=== PATIENT | male | born 1940 | race Caucasian/White ===

== ENCOUNTER 2017-07-29 17:05 | Emergency (ER) | payer OTHER ==
--- OUTSIDE RECORDS SUMMARY | 2017-07-29 17:07 | XMS REPORT | Clinical Summary ---
:1940 Author Organization [facility] Address [address] [place] [address] Care Team Providers Name Role Phone Moustapha Mcqueen MD Primary Care Provider Allergies Active Allergy Reactions Severity Noted Date Comments No Known Drug Allergies Current Medications Prescription Sig. Disp. Refills Start Date End Date Status aspirin (ECOTRIN) 81 Take 81 mg by Active MG enteric coated mouth daily. tablet citalopram (CeleXA) Take 20 mg by Active 20 MG tablet mouth nightly. LACTOBACILLUS Take by mouth. Active RHAMNOSUS GG (CULTURELLE ORAL) metoprolol succinate Take 1 tablet 90 tablet 3 04/24/2017 Active XL (TOPROL XL) 25 mg (25 mg total) 8 24 hr tablet by mouth daily. amLODIPine (NORVASC) TAKE 1 TABLET 90 tablet 2 05/24/2017 Active 10 mg BY MOUTH DAILY tabletIndications: Essential hypertension, Mixed hyperlipidemia rosuvastatin Take 1 tablet 90 tablet 3 05/21/2017 Active (CRESTOR) 20 MG (20 mg total) 9 tabletIndications: by mouth Hyperlipidemia, daily. unspecified hyperlipidemia type amLODIPine (NORVASC) Take 1 tablet 90 tablet 3 05/21/2017 Active 10 mg tablet (10 mg total) by mouth daily. clopidogrel (PLAVIX) Take 1 tablet 30 tablet 0 05/28/2017 Active 75 mg tablet (75 mg total) by mouth daily. atorvastatin Take 1 tablet 90 tablet 3 05/23/2016 Discontinued (LIPITOR) 40 MG (40 mg total) 7 tabletIndications: by mouth Hyperlipidemia, daily. unspecified hyperlipidemia type clopidogrel (PLAVIX) Take 75 mg by Discontinued 75 mg tablet mouth daily. 8 rosuvastatin Take 1 tablet 90 tablet 03 08/01/2016 Discontinued (CRESTOR) 20 MG (20 mg total) 8 tabletIndications: by mouth Hyperlipidemia, daily. unspecified hyperlipidemia type amLODIPine (NORVASC) 03/07/2017 Discontinued 10 mg tablet 8 clopidogrel (PLAVIX) Take 1 tablet 90 tablet 3 05/28/2017 Discontinued 75 mg tablet (75 mg total) 8 by mouth daily. traMADol (ULTRAM) 50 Take 1 tablet 40 tablet 0 05/29/2017 mg tablet (50 mg total) 8 by mouth every 4 (four) hours as needed for moderate pain for up to 15 days. Active Problems Problem Noted Date Left hip pain 05/29/2017 PAD (peripheral artery disease) 04/24/2017 Abdominal aortic aneurysm (AAA) without rupture 07/25/2016 Bilateral carotid bruits 07/25/2016 Hyperlipidemia 07/25/2016 Peripheral vascular disease, unspecified 12/24/2015 Coronary atherosclerosis of unspecified type of vessel, [place] or graft 2015 Encounters Date Type Specialty Care Team Description 05/29/2017 Office Visit Orthopedic Surgery Corey Hart Left hip pain ( Primary MD Judah Dx) 05/29/2017 Orders Only Orthopedic Surgery Monserrat Guevara MA 05/28/2017 Refill Cardiology Dillan Du Med Yesiill 05/21/2017 Orders Only Cardiology Ricki De La Fuente MA 05/21/2017 Orders Only Cardiology Ricki De La Fuente MA Hyperlipidemia, unspecified hyperlipidemia type 05/19/2017 Refill Cardiology Dillan Du Med Refill 05/18/2017 Telephone Cardiology Jennifer Rangel Medication RN 05/17/2017 Telephone Cardiology Dillan Du MD 05/17/2017 Telephone Cardiology Dillan Du MD 04/24/2017 Office Visit Cardiology Dillan Du, PAD (peripheral artery disease) (Primary Dx); Abdominal aortic aneurysm (AAA) without rupture 08/22/2016 Telephone Cardiology Rhoda Denson, Jami FARIAS 08/18/2016 Telephone Cardiology Jeremy, Jami (lvm) DINORA Merchant 08/01/2016 Orders Only Cardiology Dillan Du, Abdominal aortic aneurysm MD (AAA) without rupture (Primary Dx) 08/01/2016 Refill Cardiology Janiya, Rhoda, Med Refill MA after 07/28/2016 Family History Medical History Relation Name Comments Cancer Brother No Known Problems Father Cancer Mother Relation Name Status Comments Brother Father Mother Social History Tobacco Use Types Packs/Day Years Used Date Never Smoker Tobacco Cessation: Counseling Given: No Alcohol Use Drinks/Week oz/Week Comments No Sex Assigned at Date Recorded Not on file Last Filed Vital Signs Vital Sign Reading Time Taken Blood Pressure 170/81 04/24/2017 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 Pulse 76 04/24/2017 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 Temperature - - Respiratory Rate - - Oxygen Saturation - - Inhaled Oxygen Concentration - - Weight 74.8 kg (165 lb) 05/29/2017 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 Height 182.9 cm (6') 05/29/2017 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 Body Mass Index 22.38 05/29/2017 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 Plan of Treatment Date Type Specialty Care Team Description 09/24/2017 Appointment Procedural Cardiology Dillan Du MD [address] [place] [address] [phone] 10/23/2017 Office Visit Cardiology Dillan Du MD [address] [place] [address] [phone] Health Maintenance Due Date Last Done Comments ZOSTER VACCINE 1999 PNEUMOCOCCAL POLYSACCHARIDE VACCINE AGE 65 AND OVER 02/08/2004 PNEUMOCOCCAL-13 02/08/2004 INFLUENZA VACCINE 12/12/2016 Implants Implanted Type Area Horseshoer Device Expiration Model / Identifier Date Serial / Lot Stent Bili Protege Everflex Slf-Xpndbl 5x60mm W/ Cath 120cm - [id number] Peripheral or N/A: N/A [employer] 10/17/2018 [id number] 120 / Implanted: 12/24/2015 (Quantity not on file) Biliary Stents / [id number] Stent Perph Everflex Slf-Xpndbl 6x60mm W/ Cath 120cm - [id number] Peripheral or N/A: N/A [employer] 10/28/2018 [id number] 120 / Implanted: 12/24/2015 (Quantity not on file) Biliary Stents / [id number] Results XR Hip 2-3 View Left (05/29/2017 9:43 AM) Specimen Performing Laboratory [facility] [address] [place] [address] Narrative Left hip xray shows total hip arthroplasty in good place with no signs of ostelysis.Acetabular plate with multiple screws in good place. Pelvis with two screws across.No acute fractures noted. Pv duplex aorta inferior vena cava complete (08/09/2016 11:00 AM) Specimen Performing Laboratory [facility] [address] [place] [address] Narrative [facility] Abdominal Aorta-Iliac Report Pat.Name:ONEIL REYES Pat.ID:[id number] St.Date: 08/09/2016 Refer.MD:DILLAN DU MD Exam Time: 10:34:00 AM Study Type:Abd. Aorta-Iliac DOBAge:1940,76Y Sex: MALE Sonogrphr: Rolando Mcfarland RVSPat. Stat.:Outpatient TapeVol: , CPT - 4: 73622 Echo Event ID:[id number] Order ID:[id number] Reason for Study:Abdominal Aorta Aneurysm without rupture; Hyperlipidemia. Race:C SUMMARY: AORTA:The abdominal aorta is well visualized.The aorta measures 4.4 cm x 3.8 cm .Hard plaque is noted.Colorflow and Doppler signals are normal throughout all visualized arteries. PHYSICIAN INTERPRETATION The aorta and its major branches are reasonably well seen. The largest diameter of the aneurysm is 4.4 cm x 3.8 cm. Hard plaque is noted. MEASUREMENTS: 2D Aorta Ascending Aorti3.71 cm Aortic Root Jeyn 3.4 cm Signed 08/14/2016 01:11 PM Dillan Du MD Procedure Note Interface, Radiology Results In - 08/14/2016 1:11 PM CDT [facility] Abdominal Aorta-Iliac Report Pat.Name: ONEIL REYES Pat.ID: [id number] St.Date: 08/09/2016 Refer.MD: DILLAN DU MD Exam Time: 10:34:00 AM Study Type:Abd. Aorta-Iliac Age: 8 1940,76Y Sex: MALE Sonogrphr: JERAMY LeeS Pat. Stat.:Outpatient Tape Vol: , [facility] - 4: 61427 Echo Event ID:[id number] Order ID: [id number] Reason for Study:Abdominal Aorta Aneurysm without rupture; Hyperlipidemia. Race: C SUMMARY: AORTA: The abdominal aorta is well visualized. The aorta measures 4.4 cm x 3.8 cm . Hard plaque is noted. Colorflow and Doppler signals are normal throughout all visualized arteries. PHYSICIAN INTERPRETATION The aorta and its major branches are reasonably well seen. The largest diameter of the aneurysm is 4.4 cm x 3.8 cm. Hard plaque is noted. MEASUREMENTS: 2D Aorta Ascending Aorti 3.71 cm Aortic Root Jeny 3.4 cm Signed 08/14/2016 01:11 PM Dillan Du MD Pv carotid duplex (08/09/2016 10:30 AM) Specimen Performing Laboratory [facility] [address] [place] [address] Narrative [facility] Cardiology [facility] Carotid Artery Ultrasound Report Pat.Name:ONEIL REYES Pat.ID:[id number] St.Date: 08/09/2016 Refer.MD:DEVAN MCQUEEN MD Exam Time: 10:06:00 AM Study Type:Carotid DOBAge:1940,76Y Sex: MALE Sonogrphr: Rolando Mcfarland RVSPat. Stat.:[facility]patient [facility]Vol: [facility] - [facility]: 96407 Echo Event ID:[id number] Order ID:[id number] Reason for Study:Carotid artery disease; right internal carotid stenting, hyperlipidemia. Race:C SUMMARY: CAROTID ARTERY SCAN RIGHT:There is focal hard plaque in the common carotid artery. There is hard plaque noted in the bulb. A stent is visualized in the proximalinternal carotid artery with normal velocities and normal colorflow. There is hard, calcified, and irregular plaque noted in the external carotid artery. Colorflow is disturbed in the external carotid artery. LEFT: There is hard plaque in the common carotid artery. There is hard and calcified plaque noted in the bulb extending into the proximal internal and external carotid artery.Colorflow is disturbed in the external carotid artery. PHYSICIAN INTERPRETATION 1.Normal flow through the stent in the right internal carotid artery. 2.30-40% stenosis in the bulb and left internal carotid artery. 3.Severe stenosis in the external carotid artery, bilaterally. 4. Non-stenotic plaque in the common carotid artery,bilaterally. Carotid Findings:RightLeft Verteb.Flw AntegradeAntegrade Subclavian Biphasic Biphasic MEASUREMENTS: DOPPLER Right CCA Dist CCA Dist PSV43.7 centimeter/second CCA Dist EDV9.84 centimeter/second Right CCA Mid CCA Mid PSV 64.5 centimeter/second CCA Mid EDV 14.2 centimeter/second Right CCA Prox CCA Prox PSV85.3 centimeter/second CCA Prox EDV14.2 centimeter/second Right Bulb Bulb PSV37.2 centimeter/second Bulb EDV9.84 centimeter/second Right ECA Prox ECA Prox PSV 467 centimeter/second ECA Prox EDV 0 centimeter/second Right ICA Dist ICA Dist PSV72.2 centimeter/second ICA Dist EDV20.8 centimeter/second Right ICA Mid ICA Mid PSV 54.7 centimeter/second ICA Mid EDV 17.5 centimeter/second Right ICA Prox ICA Prox PSV47 centimeter/second ICA Prox EDV13.1 centimeter/second Right Vertebral Vertebral PSV 47 centimeter/second Vertebral EDV 9.84 centimeter/second Right SCA Prox SCA Prox PSV99.1 centimeter/second Left CCA Dist CCA Dist PSV58.4 centimeter/second CCA Dist EDV10.1 centimeter/second Left CCA Prox CCA Prox PSV68.5 centimeter/second CCA Prox EDV10.1 centimeter/second Left Bulb Bulb PSV82.6 centimeter/second Bulb EDV22.1 centimeter/second Left ECA Prox ECA Prox PSV 438 centimeter/second ECA Prox EDV41.3 centimeter/second Left ICA Dist ICA Dist PSV79.8 centimeter/second ICA Dist EDV20.8 centimeter/second Left ICA Mid ICA Mid PSV 80.9 centimeter/second ICA Mid EDV 19.9 centimeter/second Left ICA Prox ICA Prox PSV91.9 centimeter/second ICA Prox EDV20.8 centimeter/second Left Vertebral Vertebral PSV 31.7 centimeter/second Vertebral EDV 8.75 centimeter/second Left SCA Prox SCA Prox PSV 157 centimeter/second SCA Prox EDV 0 centimeter/second Left CCA Mid CCA Mid PSV 58 cm/sCCA Mid EDV 12 cm/s Right ICA/CCA Ratio ICA/CCA PSV0.729 Left ICA/CCA Ratio ICA/CCA PSV 1.58 Signed 08/14/2016 01:15 PM Dillan Du MD Procedure Note Interface, Radiology Results In - 08/14/2016 1:15 PM CDT [facility] Carotid Artery Ultrasound Report Pat.Name: ONEIL REYES.ID: [id number] St.Date: 08/09/2016 Refer.MD: DEVAN MCQUEEN MD Exam Time: 10:06:00 AM Study Type:Carotid Age: 9 1940,76Y Sex: MALE Sonogrphr: CHANDRIKA Lee Pat. Stat.:Outpatient Tape Vol: , [facility] - 4: 71961 Echo Event ID:[id number] Order ID: [id number] Reason for Study:Carotid artery disease; right internal carotid stenting, hyperlipidemia. Race: C SUMMARY: CAROTID ARTERY SCAN RIGHT: There is focal hard plaque in the common carotid artery. There is hard plaque noted in the bulb. A stent is visualized in the proximal internal carotid artery with normal velocities and normal colorflow. There is hard, calcified, and irregular plaque noted in the external carotid artery. Colorflow is disturbed in the external carotid artery. LEFT: There is hard plaque in the common carotid artery. There is hard and calcified plaque noted in the bulb extending into the proximal internal and external carotid artery. Colorflow is disturbed in the external carotid artery. PHYSICIAN INTERPRETATION 1. Normal flow through the stent in the right internal carotid artery. 2. 30-40% stenosis in the bulb and left internal carotid artery. 3. Severe stenosis in the external carotid artery, bilaterally. 4. Non-stenotic plaque in the common carotid artery, bilaterally. Carotid Findings: Right Left Verteb.Flw Antegrade Antegrade Subclavian Biphasic Biphasic MEASUREMENTS: DOPPLER Right CCA Dist CCA Dist PSV 43.7 centimeter/second CCA Dist EDV 9.84 centimeter/second Right CCA Mid CCA Mid PSV 64.5 centimeter/second CCA Mid EDV 14.2 centimeter/second Right CCA Prox CCA Prox PSV 85.3 centimeter/second CCA Prox EDV 14.2 centimeter/second Right Bulb Bulb PSV 37.2 centimeter/second Bulb EDV 9.84 centimeter/second Right ECA Prox ECA Prox PSV 467 centimeter/second ECA Prox EDV 0 centimeter/second Right ICA Dist ICA Dist PSV 72.2 centimeter/second ICA Dist EDV 20.8 centimeter/second Right ICA Mid ICA Mid PSV 54.7 centimeter/second ICA Mid EDV 17.5 centimeter/second Right ICA Prox ICA Prox PSV 47 centimeter/second ICA Prox EDV 13.1 centimeter/second Right Vertebral Vertebral PSV 47 centimeter/second Vertebral EDV 9.84 centimeter/second Right SCA Prox SCA Prox PSV 99.1 centimeter/second Left CCA Dist CCA Dist PSV 58.4 centimeter/second CCA Dist EDV 10.1 centimeter/second Left CCA Prox CCA Prox PSV 68.5 centimeter/second CCA Prox EDV 10.1 centimeter/second Left Bulb Bulb PSV 82.6 centimeter/second Bulb EDV 22.1 centimeter/second Left ECA Prox ECA Prox PSV 438 centimeter/second ECA Prox EDV 41.3 centimeter/second Left ICA Dist ICA Dist PSV 79.8 centimeter/second ICA Dist EDV 20.8 centimeter/second Left ICA Mid ICA Mid PSV 80.9 centimeter/second ICA Mid EDV 19.9 centimeter/second Left ICA Prox ICA Prox PSV 91.9 centimeter/second ICA Prox EDV 20.8 centimeter/second Left Vertebral Vertebral PSV 31.7 centimeter/second Vertebral EDV 8.75 centimeter/second Left SCA Prox SCA Prox PSV 157 centimeter/second SCA Prox EDV 0 centimeter/second Left CCA Mid CCA Mid PSV 58 cm/s CCA Mid EDV 12 cm/s Right ICA/CCA Ratio ICA/CCA PSV 0.729 Left ICA/CCA Ratio ICA/CCA PSV 1.58 Signed 08/14/2016 01:15 PM Dillan Du MD after 07/28/2016 Insurance Payer Benefit Plan / Group Subscriber ID Type Phone Address NELLI AIKEN OPEN ACCESS/NETWORK xxxxxxxxx HMO +[facility]-[id number] [place] [address]
--- NOTE | 2017-07-29 18:07 | RAD REPORT ---
EXAM DESCRIPTION: RAD - Knee Left 3 View - 07/29/2017 5:43 pm CLINICAL HISTORY: Fall, pain COMPARISON: None. FINDINGS: Diffuse osteopenia is seen. Lucency is seen in the superior pole patella, likely nondispla selvin fracture. Moderate suprapatellar joint effusion with lipohemarthrosis suspected. Popliteal athero sclerosis is heavy.
[2017-07-29] MEDS ORDERED: HYDROCODONE/APAP 10/325 TAB ONE (18:18)
--- NOTE | 2017-07-29 19:21 | ER ---
Nurse's Notes [facility] Name: Vaughn Webb Age: 77 yrs Sex: Male : 1940 Arrival Date: 07/29/2017 Time: 17:07 Bed 26 Private MD: Moustapha Bliss Diagnosis: Nondisplaced left patella fracture Presentation: 07/29 17:09 Presenting complaint: Patient states: i was folding clothes and i went to turn around and i fell and hit my L knee around 2 pm today; denies hitting head and LOC;. Transition of care: patient was not received from another setting of care. Onset of symptoms was July 29, 2017. Care prior to arrival: None. 17:09 Method Of Arrival: Ambulatory 17:09 Acuity: PEDRO LUIS 4 17:18 Mechanism of Injury: Fall. Trauma event details: Injury occurred in the county [facility], Injury occurred: at home. Injury occurred: July 29, 2017. Triage Assessment: 17:17 General: Appears in no apparent distress. uncomfortable, Behavior is calm, cooperative, hj appropriate for age. Pain: Complains of pain in left knee. Trauma Activation: Not Applicable Physician: ED Physician; Name: ; Notified At: ; Arrived At: Physician: General Surgeon; Name: ; Notified At: ; Arrived At: Physician: Radiology; Name: ; Notified At: ; Arrived At: Physician: Respiratory; Name: ; Notified At: ; Arrived At: Physician: Lab; Name: ; Notified At: ; Arrived At: Historical: - Allergies: 17:17 No Known Allergies; - Home Meds: 17:17 aspirin 81 mg Oral TbEC 1 tab once daily [Active]; citalopram 20 mg tab 1 tab once hj daily [Active]; Plavix 75 mg Oral tab 1 tab once daily [Active]; amlodipine 10 mg tab 1 tab once daily [Active]; atorvastatin 40 mg oral tab 1 tab once daily [Active]; rosuvastatin 20 mg oral tab 1 tab once daily [Active]; - PMHx: 17:17 Hyperlipidemia; Hypertension; hj - PSHx: 17:17 triple bypass; Carotid surgery; L hip; hj Screenin:07 Abuse screen: Denies threats or abuse. Nutritional screening: No deficits noted. kb1 Tuberculosis screening: No symptoms or risk factors identified. Fall Risk Gait- Impaired (20 pts.). Assessment: 18:07 General: Appears in no apparent distress. Behavior is calm, cooperative. Pain: kb1 Complains of pain in left knee. Neuro: Level of Consciousness is awake, alert, obeys commands, Oriented to person, place, time, situation. Cardiovascular: Patient's skin is warm and dry. Respiratory: Respiratory effort is even, unlabored, Respiratory pattern is regular, symmetrical. GI: No signs and/or symptoms were reported involving the gastrointestinal system. : No signs and/or symptoms were reported regarding the genitourinary system. Musculoskeletal: Swelling present in left knee Reports pain in left knee, "I can't lift my foot up". Injury Description: Crush injury. 19:10 Reassessment: Patient appears in no apparent distress at this time. Patient and/or kb1 family updated on plan of care and expected duration. Pain level reassessed. Patient is alert, oriented x 3, equal unlabored respirations, skin warm/dry/pink. 20:03 Reassessment: Patient appears in no apparent distress at this time. kb1 Vital Signs: 17:18 BP 155 / 67; Pulse 63; Resp 18; Temp 97.6(TE); Pulse Ox 100% on R/A; Weight 74.84 kg; hj Height 6 ft. 0 in. (182.88 cm); Pain 9/10; 18:07 BP 172 / 66; Pulse 62; Resp 18; Pulse Ox 98% ; kb1 19:12 BP 169 / 72; Pulse 60; Resp 18; Pulse Ox 97% ; kb1 17:18 Body Mass Index 22.38 (74.84 kg, 182.88 cm) Trauma Score (Adult): 17:18 Eye Response: spontaneous(1); Verbal Response: oriented(1); Motor Response: obeys commands(2); Systolic BP: > 89 mm Hg(4); Respiratory Rate: 10 to 29 per min(4); [place] Score: 15; Trauma Score: 12 ED Course: 17:07 Patient arrived in ED. mr 17:08 Moustapha Bliss MD is Private Physician. mr 17:11 Triage completed. hj 17:17 Arm band placed on left wrist. hj 17:26 [facility] pm1 17:26 Ruben Meneses MD is Attending Physician. pm1 17:56 Elzbieta Bhagat, RN is Primary Nurse. kb1 18:07 Patient has correct armband on for positive identification. Bed in low position. Call kb1 light in reach. Side rails up X 1. Pulse ox on. NIBP on. 18:07 No provider procedures requiring assistance completed. Patient did not have IV access kb1 during this emergency room visit. 18:10 Ice pack applied to left knee. kb1 19:19 Dusty oMise MD is Referral Physician. pm1 Administered Medications: 18:10 Drug: Nyssa 10 mg-325 mg 1 tabs Route: PO; kb1 20:02 Follow up: Response: No adverse reaction; Pain is decreased kb1 Outcome: 19:21 Discharge ordered by . pm1 20:05 Discharged to home via wheelchair, with crutches, with family. kb1 20:05 Condition: stable 20:05 Discharge instructions given to patient, family, Instructed on discharge instructions, follow up and referral plans. medication usage, crutch walking, Demonstrated understanding of instructions, follow-up care, medications, crutch walking, splint care. 20:08 Patient left the ED. kb1 Signatures: Glenny LawtonuinCheikh RN RN hj Jose Leger, OSMAN RADIOLOGY TRANSCRIPTIONIST pm1 Elzbieta Bhagat, MAXIME RN kb1 Corrections: (The following items were deleted from the chart) 17:20 17:18 Pulse 63bpm; Resp 18bpm; Pulse Ox 100% RA; Temp 97.6F Temporal; 74.84 kg; Height hj 6 ft. 0 in.; BMI: 22.3; Pain 9/10; hj
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
[2017-07-29 20:42] VITALS: TEMP 97.6
[2017-07-29 20:45] VITALS: BP 169/72; O2SAT 97
== END 2017-07-29 20:08 | disposition home or self-care (01) ==
LOC: ER 17:05
DX: S82.002A Unspecified fracture of left patella, initial encounter for closed fracture (principal); W18.09XA Striking against other object with subsequent fall, initial encounter; Y93.E2 Activity, laundry; Y92.89 Other specified places as the place of occurrence of the external cause; Z79.01 Long term (current) use of anticoagulants; Z79.82 Long term (current) use of aspirin; I10 Essential (primary) hypertension; E78.5 Hyperlipidemia, unspecified
CPT/HCPCS: 99283

== ENCOUNTER 2019-01-06 17:48 | Emergency (ER) | payer OTHER, BC ==
--- OUTSIDE RECORDS SUMMARY | 2019-01-06 17:52 | XMS REPORT | Clinical Summary ---
:1940 Author Organization [facility] Address [address] [place] [address] Care Team Providers Name Role Phone Moustapha Bliss MD Primary Care Provider Allergies Active Allergy Reactions Severity Noted Date Comments No Known Drug Allergies Medications Medication Sig Dispensed Refills Start End Date Status Date citalopram (CeleXA) Take 40 mg by 0 Active 40 MG tablet mouth daily. LACTOBACILLUS Take 1 tablet 0 Active RHAMNOSUS GG by mouth (CULTURELLE ORAL) daily. clopidogrel (PLAVIX) Take 1 tablet 90 tablet 3 Active 75 mg (75 mg total) 9 tabletIndications: by mouth Bilateral carotid daily. artery disease, unspecified type (HCC) amLODIPine (NORVASC) Take 1 tablet 90 tablet 3 Active 10 mg (10 mg total) 9 tabletIndications: by mouth Essential daily. hypertension, Mixed hyperlipidemia, Bilateral carotid artery disease, unspecified type (HCC) UNABLE TO FIND Take by mouth 0 Active daily. Med Name: FOLATE rosuvastatin Take 20 mg by 0 Active (CRESTOR) 20 MG mouth daily. tablet meloxicam (MOBIC) 15 Take 15 mg by 0 Active mg tablet mouth daily. atorvastatin TK 1 T PO D 3 Active (LIPITOR) 40 MG 9 tablet bicalutamide Take 50 mg by 0 Active (CASODEX) 50 mg mouth 2 (two) chemo tablet times a day. docusate sodium Take 1 20 capsule 0 01/16/20 Active (COLACE) 100 MG capsule (100 9 19 capsule mg total) by mouth 2 (two) times a day for 10 days. sulfamethoxazole-tri Take 1 tablet 14 tablet 0 01/13/20 Active methoprim (BACTRIM by mouth 2 9 DS) 800-160 mg per (two) times a tablet day for 7 days. aspirin (ECOTRIN) 81 Take 81 mg by 0 12/13/19 Discontinued MG enteric coated mouth daily. 19 tablet metoprolol succinate Take 1 tablet 90 tablet 3 03/31/20 Discontinued XL (TOPROL XL) 25 mg (25 mg total) 7 18 (Reorder) 24 hr tablet by mouth daily. amLODIPine (NORVASC) TAKE 1 TABLET 90 tablet 2 05/28/19 Discontinued 10 mg BY MOUTH 8 19 (Reorder) tabletIndications: DAILY Essential hypertension, Mixed hyperlipidemia rosuvastatin Take 1 tablet 90 tablet 3 05/21/19 (CRESTOR) 20 MG (20 mg total) 8 19 tabletIndications: by mouth Hyperlipidemia, daily. unspecified hyperlipidemia type amLODIPine (NORVASC) Take 1 tablet 90 tablet 3 07/02/19 Discontinued 10 mg tablet (10 mg total) 8 19 by mouth daily. clopidogrel (PLAVIX) Take 1 tablet 30 tablet 0 05/28/19 Discontinued 75 mg tablet (75 mg total) 8 19 (Reorder) by mouth daily. metoprolol succinate TAKE 1 TABLET 90 tablet 2 05/28/19 Discontinued XL (TOPROL-XL) 25 mg BY MOUTH 8 19 (Dose 24 hr tablet DAILY adjustment) atorvastatin Take 40 mg by 0 05/28/19 Discontinued (LIPITOR) 40 MG mouth daily. 19 (Reorder) tablet metoprolol succinate Take 1 tablet 90 tablet 3 11/13/19 Discontinued XL (TOPROL-XL) 50 mg (50 mg total) 9 19 (Therapy 24 hr by mouth completed) tabletIndications: daily. Bilateral carotid artery disease, unspecified type (HCC) atorvastatin Take 1 tablet 90 tablet 3 07/02/19 Discontinued (LIPITOR) 40 MG (40 mg total) 9 19 tabletIndications: by mouth Bilateral carotid daily. artery disease, unspecified type (HCC) clopidogrel (PLAVIX) TAKE 1 TABLET 90 tablet 3 07/02/19 Discontinued 75 mg tablet BY MOUTH 9 19 DAILY amLODIPine (NORVASC) TAKE 1 TABLET 90 tablet 3 07/02/19 Discontinued 10 mg BY MOUTH 9 19 tabletIndications: DAILY Essential hypertension, Mixed hyperlipidemia levoFLOXacin Take 1 tablet 6 tablet 0 08/19/19 (LEVAQUIN) 750 MG (750 mg 9 19 tablet total) by mouth daily for 6 days. bicalutamide Take 1 tablet 60 tablet 3 10/24/19 (CASODEX) 50 mg (50 mg total) 9 19 chemo tablet by mouth 2 (two) times a day for 30 days. docusate sodium Take 1 60 capsule 0 12/23/19 (COLACE) 100 MG capsule (100 9 19 capsule mg total) by mouth 2 (two) times a day for 30 days. ciprofloxacin Take 1 tablet 10 tablet 0 11/28/19 (CIPRO) 500 MG (500 mg 9 19 tablet total) by mouth 2 (two) times a day for 5 days. phenazopyridine Take 1 tablet 9 tablet 0 11/26/19 (PYRIDIUM) 100 MG (100 mg 9 19 tablet total) by mouth 3 (three) times a day as needed for bladder spasms for up to 3 days. sulfamethoxazole-tri Take 1 tablet 8 tablet 0 12/30/19 methoprim (BACTRIM by mouth 2 9 19 DS) 800-160 mg per (two) times a tablet day for 4 days. traMADol (ULTRAM) 50 Take 1 tablet 10 tablet 0 12/31/19 mg tablet (50 mg total) 9 19 by mouth every 6 (six) hours as needed for moderate pain for up to 5 days. docusate sodium Take 1 20 capsule 0 01/06/20 Discontinued (COLACE) 100 MG capsule (100 9 19 capsule mg total) by mouth 2 (two) times a day for 10 days. oxybutynin Take 1 tablet 20 tablet 0 01/02/20 (DITROPAN) 5 MG (5 mg total) 9 19 tablet by mouth 3 (three) times a day as needed for bladder spasms for up to 7 days. Hospital, Clinic, or Other Ordered Dose Route Frequency Start Date End Date Status Facility Administered Medication cefTRIAXone (ROCEPHIN) 1 g IM once 09/09/2018 09/09/2018 Ended injection 1 gIndications: Elevated prostate specific antigen (PSA) Active Problems Problem Noted Date Hematuria 01/03/2019 BPH with urinary obstruction 11/21/2018 BPH with obstruction/lower urinary tract symptoms 11/12/2018 Malignant neoplasm of prostate 11/12/2018 Bilateral carotid artery stenosis 10/29/2018 Coronary artery disease involving [place] coronary artery 06/05/2018 Overview: Added automatically from request for surgery [id number] Abnormal stress test 05/28/2018 Angina pectoris 05/28/2018 CAD in [place] artery 04/23/2018 Abnormal EKG 04/23/2018 History of coronary artery bypass graft 04/23/2018 Left hip pain 05/29/2017 PAD (peripheral artery disease) 04/24/2017 AAA (abdominal aortic aneurysm) without rupture 07/25/2016 Bilateral carotid bruits 07/25/2016 Hyperlipidemia 07/25/2016 Peripheral vascular disease, unspecified 12/24/2015 Coronary artery disease involving [place] coronary artery without angina 2015 pectoris Encounters Date Type Specialty Care Team Description 01/06/2019 Telephone Urology Moustapha Mota MD 01/03/2019 - Hospital Encounter General Internal Moustapha Mota 01/05/2019 Medicine MD Sarah 12/31/2018 Office Visit Urology Moustapha Mota Malignant neoplasm MD Sarah of prostate (HCC) (Primary Dx) 12/30/2018 Telephone Urology Moustapha Mota MD 12/25/2018 Surgery Urology Moustapha Mota PROSTATIC HIFU MD Sarah 12/25/2018 [facility]esthesia Event [facility]2018 Hospital Encounter Urology Moustapha Mota MD 12/25/2018 Telephone Urology Moustapha Mota MD 12/12/2018 Pre-Admit Testing Pre-Admission Moustapha Mota Preop testing ( Primary Dx); Appointment Testing MD Sarah Malignant neoplasm of prostate (HCC) 12/12/2018 Office Visit Urology Moustapha Mota Malignant neoplasm of prostate (HCC) (Primary Dx); MD Sarah Pre-op testing 11/21/2018 Surgery Urology Moustapha Mota CYSTOSCOPY, WITH MD Sarah TURP 11/21/2018 Anesthesia Event Urology Nahum Ayala MD [place]Mary Gann NP 11/21/2018 - Hospital Encounter General Internal Moustapha Mota BPH with urinary 11/22/2018 Medicine MD Sarah obstruction 11/15/2018 Telephone Urology Moustapha Mota MD 11/13/2018 Telephone Cardiology Ricki De La Fuente MA Medication Question (Amlodipine + Toprol ) 11/12/2018 Pre-Admit Testing Pre-Admission Moustapha Mota BPH with Appointment Testing MD Sarah obstruction/lower urinary tract symptoms 11/12/2018 Office Visit Urology Moustapha Mota BPH with obstruction/lower urinary tract symptoms (Primary Dx); MD Sarah Preop testing 10/30/2018 Telephone UrologMoustapha Hinkle MD 10/29/2018 Office Visit Cardiology Dillan Du PAD (peripheral artery disease) ([facility]) (Primary Dx); MD Hernán Coronary artery disease involving [place] coronary artery of [place] heart without angina pectoris; Bilateral carotid artery stenosis; History of coronary artery bypass graft 10/23/2018 Refill Cardiology Dillan Du Med Refill MD Hernán 10/21/2018 Office Visit UrologMoustapha Hinkle MD of prostate ([facility]) (Primary Dx) 10/11/2018 Telephone Urology Willie Barnes MD 10/08/2018 Procedure visit Urology Pan Malignant neoplasm of prostate ([facility]) (Primary Dx); Willie arredondo, TEZ (stress urinary incontinence), male 10/02/2018 Hospital Encounter Radiology Moustpaha Mota MD 10/02/2018 Hospital Encounter Radiology Moustapha Mota MD of prostate ([facility]) 09/20/2018 Telephone Moustapha Ba MD 09/19/2018 Office Visit UrologMoustapha Hinkle MD of prostate ([facility]) (Primary Dx) 09/16/2018 Orders Only Moustapha Ba MD 09/12/2018 Orders Only Moustapha Ba MD 09/10/2018 Telephone UrologMoustapha Hinkle MD 09/09/2018 Ancillary Procedure Urology Moustapha Mota Elevated PSA MD Sarah 09/09/2018 Office Visit Urology Moustapha Mota Elevated prostate MD Sarah specific antigen (PSA) (Primary Dx) 09/04/2018 Orders Only Urology Moustapha Mota MD 09/02/2018 Telephone Urology Moustapha Mota MD 08/13/2018 Telephone Urology Moustapha Mota MD 08/12/2018 Office Visit Urology Moustapha Mota Elevated PSA (Primary Dx); MD Sarah Elevated prostate specific antigen (PSA) 08/12/2018 Telephone Urology Dana Green MA 07/22/2018 Telephone Urology Moustapha Mota MD 07/03/2018 Surgery Procedural Dillan Du Cv left internal Cardiology MD Hernán mammary graft 07/03/2018 Hospital Encounter Procedural Dillan Du Cardiology MD Hernán 06/07/2018 Refill Cardiology Dillan Du Refjunaid Jim MD 06/05/2018 Orders Only Cardiology Ricki De La Fuente MA 06/05/2018 Orders Only Cardiology Ricki De La Fuente MA Pre-procedural laboratory examination (Primary Dx); Coronary artery disease involving [place] coronary artery of [place] heart without angina pectoris; SOB (shortness of breath) 06/03/2018 Hospital Encounter Procedural Dillan Du Essential hypertension; Cardiology MD Hernán Mixed hyperlipidemia; Abnormal stress test; Angina pectoris (HCC); Chest pain, unspecified type; Bilateral carotid artery disease, unspecified type (HCC) 05/28/2018 Office Visit Cardiology Dillan Du Angina pectoris (HCC) ( Primary Dx); MD Hernán Essential hypertension; Mixed hyperlipidemia; Abnormal stress test; Chest pain, unspecified type; Bilateral carotid artery disease, unspecified type (HCC) 05/16/2018 Telephone Cardiology Ricki De La Fuente MA Results (nu stress test) 05/01/2018 Orders Only Cardiology Dillan Du MD 04/23/2018 Office Visit Cardiology Dillan Du Abnormal EKG (Primary Dx); MD eHrnán AAA (abdominal aortic aneurysm) without rupture (HCC); CAD in [place] artery; PAD (peripheral artery disease) (HCC); History of coronary artery bypass graft 03/31/2018 Refill Cardiology Dillan Du MD after 01/05/2018 Family History Medical History Relation Name Comments Cancer Brother No Known Problems Father Cancer Mother Relation Name Status Comments Brother Father Mother Social History Tobacco Use Types Packs/Day Years Used Date Former Smoker Cigarettes 1 20 Quit: 1994 Smokeless Tobacco: Never Used Tobacco Cessation: Counseling Given: No Alcohol Use Drinks/Week oz/Week Comments No Sex Assigned at Date Recorded Not on file Job Start Date Occupation Industry Not on file Not on file Not on file Travel History Travel Start Travel End No recent travel history available. Last Filed Vital Signs Vital Sign Reading Time Taken Comments Blood Pressure 130/60 01/05/2019 9:17 AM CDT Pulse 66 01/05/2019 9:17 AM CDT Temperature 36.4 C (97.6 F) 01/05/2019 7:37 AM CDT Respiratory Rate 18 01/05/2019 7:37 AM CDT Oxygen Saturation 96% 01/05/2019 7:37 AM CDT Inhaled Oxygen Concentration - - Weight 76 kg (167 lb 8 oz) 12/25/2018 8:46 AM CDT Height 180.3 cm (5' 11") 12/25/2018 8:46 AM CDT Body Mass Index 23.36 12/25/2018 8:46 AM CDT Plan of Treatment Date Type Specialty Care Team Description 01/09/2019 Office Visit Urology 01/21/2019 Appointment Procedural Cardiology Dillan Du MD [address] [place] [address] [phone] 02/24/2019 Office Visit Urology Moustapha Mota MD [address] [place] [address] [phone] Health Maintenance Due Date Last Done Comments SHINGLES VACCINES (#1) 1989 65+ PNEUMOCOCCAL VACCINE (1 of 2 - PCV13) 02/08/2004 INFLUENZA VACCINE 12/12/2018 Implants Implanted Type Area Blast Furnace Keeper Helper Device Shelf Model / Identifier Expiration Serial / Date Lot Stent Bili Protege Everflex Slf-Xpndbl 5x60mm W/ Cath 120cm - [id number] Peripheral or N/A: N/A [employer] 10/17/2018 [id number] 120 / Implanted: 12/24/2015 at [facility] (Quantity not on file) Biliary Stents / [id number] Stent [facility] Everflex Slf-Xpndbl 6x60mm W/ Cath 120cm - [id number] Peripheral or N/A: N/A [employer] 10/28/2018 [id number] 120 / Implanted: 12/24/2015 at [facility] (Quantity not on file) Biliary Stents / [id number] Procedures Procedure Name Priority Date/Time Associated Comments Diagnosis ESTIMATED GFR Routine 01/05/2019 4:35 Results for this AM CDT procedure are in the results section. HC COMPLETE BLD COUNT Routine 01/05/2019 4:35 Results for this W/AUTO DIFF AM CDT procedure are in the results section. BASIC METABOLIC PANEL Routine 01/05/2019 4:35 Results for this AM CDT procedure are in the results section. ESTIMATED GFR Routine 01/04/2019 4:15 Results for this AM CDT procedure are in the results section. HC COMPLETE BLD COUNT Routine 01/04/2019 4:15 Results for this W/AUTO DIFF AM CDT procedure are in the results section. BASIC METABOLIC PANEL Routine 01/04/2019 4:15 Results for this AM CDT procedure are in the results section. ESTIMATED GFR STAT 01/03/2019 4:18 Results for this PM CDT procedure are in the results section. BASIC METABOLIC PANEL STAT 01/03/2019 4:18 Results for this PM CDT procedure are in the results section. PARTIAL THROMBOPLASTIN Routine 01/03/2019 4:18 Results for this TIME (PTT) PM CDT procedure are in the results section. PROTHROMBIN TIME WITH Routine 01/03/2019 4:18 Results for this INR PM CDT procedure are in the results section. CBC HEMOGRAM Routine 01/03/2019 4:18 Results for this PM CDT procedure are in the results section. NH AN ELECTIVE Routine 12/25/2018 9:52 ENDOTRACHEAL AIRWAY AM CDT Procedure Note - Tonya Mahan CRNA - 12/25/2018 9:52 AM CDT Airway Date/Time: 12/25/2018 9:49 AM Performed by: Tonya Mahan CRNA Authorized by: Jason Farnsworth MD Location: OR Urgency: Elective Difficult Airway: No Anesthesiologist: Jason Farnsworth MD Resident/GLOVE CUTTER/AA: Tonya Mahan CRNA Performed by: resident/GLOVE CUTTER/AA Preoxygenated with 100% O2: Yes Mask Ventilation: Easy mask Final Airway Type: Endotracheal airway Final Endotracheal Airway: ETT Technique Used: Direct laryngoscopy Insertion Site: Oral Blade Type: Monzon Laryngoscope Blade/Videolaryngoscope Blade Size: 2 ETT Size (mm): 8.0 Measured from: Lips ETT to Lips (cm): 23 Placement Verified by: CO2 detection, direct visualization and equal breath sounds Laryngoscopic view: Grade I - full view of glottis Rapid Sequence Induction (RSI): No Modified RSI: No Number of Attempts at Approach: 1 PROSTATIC HIFU 12/25/2018 9:39 AM CDT Prostate cancer (HCC) Case Notes HIFU Special Needs HIFU PROTHROMBIN TIME WITH STAT 12/25/2018 8:30 AM Results for this INR CDT procedure are in the results section. PARTIAL THROMBOPLASTIN STAT 12/25/2018 8:30 AM Results for this TIME (PTT) CDT procedure are in the results section. GRAM STAIN Routine 12/12/2018 11:18 AM Results for this CDT procedure are in the results section. URINE CULTURE Routine 12/12/2018 11:18 AM Results for this CDT procedure are in the results section. ECG 12-LEAD Routine 12/12/2018 9:06 AM Malignant neoplasm Results for this CDT of prostate (HCC) procedure are in the results section. ESTIMATED GFR Routine 12/12/2018 8:40 AM Results for this CDT procedure are in the results section. URINALYSIS SCREEN AND Routine 12/12/2018 8:40 AM Preop testing Results for this MICROSCOPY, WITH REFLEX CDT procedure are in TO CULTURE the results section. HIV AG/AB COMBINATION Routine 12/12/2018 8:40 AM Preop testing Results for this CDT procedure are in the results section. HC COMPLETE BLD COUNT Routine 12/12/2018 8:40 AM Malignant neoplasm Results for this W/AUTO DIFF CDT of prostate (HCC) procedure are in the results section. BASIC METABOLIC PANEL Routine 12/12/2018 8:40 AM Malignant neoplasm Results for this CDT of prostate (HCC) procedure are in the results section. PARTIAL THROMBOPLASTIN Routine 12/12/2018 8:40 AM Malignant neoplasm Results for this TIME (PTT) CDT of prostate (HCC) procedure are in the results section. PROTHROMBIN TIME WITH Routine 12/12/2018 8:40 AM Malignant neoplasm Results for this INR CDT of prostate (HCC) procedure are in the results section. CBC WITH PLATELET AND Routine 11/22/2018 3:12 AM Results for this DIFFERENTIAL CDT procedure are in the results section. BASIC METABOLIC PANEL Routine 11/22/2018 3:12 AM Results for this CDT procedure are in the results section. SURGICAL PATHOLOGY Routine 11/21/2018 1:56 PM Results for this REQUEST CDT procedure are in the results section. NH AN ELECTIVE Routine 11/21/2018 10:10 AM SUPRAGLOTTIC AIRWAY CDT Procedure Note - Nahum Ayala MD - 11/21/2018 10:10 AM CDT Airway Date/Time: 11/21/2018 10:04 AM Performed by: Nahum Ayala MD Authorized by: Nahum Ayala MD Location: OR Urgency: Elective Difficult Airway: No Anesthesiologist: Nahum Ayala MD Performed by: anesthesiologist Preoxygenated with 100% O2: Yes C-spine Precautions Maintained Throughout: Yes Mask Ventilation: Not attempted Final Airway Type: Supraglottic airway Final LMA: Classic LMA Size: 5 Number of Attempts at Approach: 1 CYSTOSCOPY, WITH TURP 11/21/2018 9:57 AM CDT BPH with urinary obstruction Special Needs REQ 1100 START HIV AG/AB COMBINATION Routine 11/12/2018 1:23 BPH with Results for PM CDT obstruction/lower this procedure urinary tract symptoms are in the results section. URINE CULTURE Routine 11/12/2018 12:07 Results for PM CDT this procedure are in the results section. ECG 12-LEAD Routine 11/12/2018 11:37 BPH with Results for AM CDT obstruction/lower this procedure urinary tract symptoms are in the results section. ESTIMATED GFR Routine 11/12/2018 10:56 Results for AM CDT this procedure are in the results section. HC COMPLETE BLD COUNT Routine 11/12/2018 10:56 BPH with Results for W/AUTO DIFF AM CDT obstruction/lower this procedure urinary tract symptoms are in the results section. BASIC METABOLIC PANEL Routine 11/12/2018 10:56 BPH with Results for AM CDT obstruction/lower this procedure urinary tract symptoms are in the results section. PARTIAL Routine 11/12/2018 10:56 BPH with Results for THROMBOPLASTIN TIME AM CDT obstruction/lower this procedure (PTT) urinary tract symptoms are in the results section. PROTHROMBIN TIME WITH Routine 11/12/2018 10:56 BPH with Results for INR AM CDT obstruction/lower this procedure urinary tract symptoms are in the results section. URINALYSIS SCREEN AND Routine 11/12/2018 10:55 BPH with Results for MICROSCOPY, WITH AM CDT obstruction/lower this procedure REFLEX TO CULTURE urinary tract symptoms are in the results section. FL URETHROGRAM URO Routine 10/08/2018 9:44 Malignant neoplasm of AM CDT prostate (HCC) TEZ (stress urinary incontinence), male LABORIE URODYNAMICS Routine 10/08/2018 9:10 Malignant neoplasm of Results for AM CDT prostate (HCC) this procedure TEZ (stress urinary are in the incontinence), male results section. NM BONE SCAN WHOLE Routine 10/02/2018 12:18 Malignant neoplasm of Results for BODY PM CDT prostate (HCC) this procedure are in the results section. BIOPSY PROSTATE Routine 09/16/2018 BIOPSY PROSTATE Routine 09/12/2018 POC URINALYSIS Routine 09/09/2018 12:04 Elevated prostate Results for DIPSTICK PM CDT specific antigen (PSA) this procedure are in the results section. US NEEDLE BIOPSY Routine 09/09/2018 11:53 Elevated PSA Results for AM CDT this procedure are in the results section. MRI PROSTATE WWO Routine 09/04/2018 CONTRAST POC URINALYSIS Routine 08/12/2018 1:53 Elevated PSA Results for DIPSTICK PM CDT Elevated prostate this procedure specific antigen (PSA) are in the results section. CV LEFT INTERNAL Routine 07/03/2018 9:06 Results for MAMMARY GRAFT AM BENDING FRAME OPERATOR this procedure are in the results section. CV SELECTIVE Routine 07/03/2018 9:06 Results for ANGIOGRAPHY BYPASS AM BENDING FRAME OPERATOR this procedure GRAFT are in the results section. CV SELECTIVE CORONARY Routine 07/03/2018 9:06 Results for ANGIOGRAPHY AM BENDING FRAME OPERATOR this procedure are in the results section. ECG 12-LEAD STAT 07/03/2018 7:00 Results for AM BENDING FRAME OPERATOR this procedure are in the results section. PARTIAL Routine 06/27/2018 8:29 Pre-procedural Results for THROMBOPLASTIN TIME AM BENDING FRAME OPERATOR laboratory examination this procedure (PTT) Coronary artery disease are in the involving [place] results coronary artery of section. [place] heart without angina pectoris SOB (shortness of breath) PROTHROMBIN TIME WITH Routine 06/27/2018 8:29 Pre-procedural Results for INR AM BENDING FRAME OPERATOR laboratory examination this procedure Coronary artery disease are in the involving [place] results coronary artery of section. [place] heart without angina pectoris SOB (shortness of breath) COMPREHENSIVE Routine 06/27/2018 8:29 Pre-procedural Results for METABOLIC PANEL AM BENDING FRAME OPERATOR laboratory examination this procedure Coronary artery disease are in the involving [place] results coronary artery of section. [place] heart without angina pectoris SOB (shortness of breath) CBC WITH PLATELET AND Routine 06/27/2018 8:29 Pre-procedural Results for DIFFERENTIAL AM BENDING FRAME OPERATOR laboratory examination this procedure Coronary artery disease are in the involving [place] results coronary artery of section. [place] heart without angina pectoris SOB (shortness of breath) CV CTA CORONARY Routine 06/03/2018 11:25 Essential hypertension Results for ARTERIES W CONTRAST AM BENDING FRAME OPERATOR Mixed hyperlipidemia this procedure Abnormal stress test are in the Angina pectoris (HCC) results Chest pain, unspecified section. type Bilateral carotid artery disease, unspecified type ([facility]) ESTIMATED GFR Routine 06/03/2018 11:02 Results for AM BENDING FRAME OPERATOR this procedure are in the results section. POC CREATININE Routine 06/03/2018 11:02 Results for AM BENDING FRAME OPERATOR this procedure are in the results section. NM MYOCARDIAL Routine 04/30/2018 PERFUSION ECG 12-LEAD Routine 04/23/2018 9:47 AAA (abdominal aortic Results for AM BENDING FRAME OPERATOR aneurysm) without this procedure rupture ([facility]) are in the results section. after 01/05/2018 Results Estimated GFR (01/05/2019 4:35 AM CDT)Only the most recent of6 resultswithin the time period is included. Estimated GFR 62 mL/min/1.73 [facility] Comment: HOSPITAL CatergoryUnitsInterpretation G1 >=90 Normal or high G2 60-89Mildly decreased L1s05-13Rxyvsv to moderately decreased [id number] to severely decreased G4 15-29Severely decreased G5 <15Kidney failure The eGFR was calculated using the Chronic Kidney Disease Epidemiology Collaboration (CKD-EPI) equation. Interpretation is based on recommendations of the National Kidney Foundation-Kidney Disease Outcomes Quality Initiative (NKF-KDOQI) published in 2014. Specimen Plasma specimen Performing Organization Address City/State/Zipcode Phone Number [facility] DEPARTMENT OF PATHOLOGY AND [address] [place] [address] GENOMIC MEDICINE [address] [address] CBC with platelet and differential (01/05/2019 4:35 AM CDT)Only the most recent of6 resultswithin the time period is included. WBC 5.69 4.50 - 11.00 [facility] k/uL HOSPITAL RBC 3.93 (L) 4.40 - 6.00 [facility] m/uL HOSPITAL HGB 12.4 (L) 14.0 - 18.0 [facility] g/dL HOSPITAL HCT 36.8 (L) 41.0 - 51.0 % [facility] MCV 93.6 82.0 - 100.0 [facility] MCH 31.6 27.0 - 34.0 pg [facility] MCHC 33.7 31.0 - 37.0 [facility] gdL [facility] RDW - SD 45.2 37.0 - 55.0 fL [facility] MPV 9.9 8.8 - 13.2 fL [facility] Platelet count 206 150 - 400 k/uL [facility] Nucleated RBC 0.00 /100 WBC [facility] Neutrophils 62.8 39.0 - 69.0 % [facility] Lymphocytes 23.4 (L) 25.0 - 45.0 % [facility] Monocytes 9.5 0.0 - 10.0 % [facility] Eosinophils 3.9 0.0 - 5.0 % [facility] Basophils 0.2 0.0 - 1.0 % [facility] Immature granulocytes 0.2Comment: 0.0 - 1.0 % [facility] "Immature HOSPITAL granulocytes" (promyelocytes , myelocytes, metamyelocytes ) Specimen Blood Performing Organization Address City/State/Zipcode Phone Number [facility] DEPARTMENT OF PATHOLOGY AND [address] [place] [address] GENOMIC MEDICINE [address] [address] Basic metabolic panel (01/05/2019 4:35 AM CDT)Only the most recent of6 resultswithin the time period is included. Pathologist [facility] Sodium 141 135 - 148 mEq/L [facility] Potassium 3.9 3.5 - 5.0 mEq/L [facility] Chloride 105 98 - 112 mEq/L [facility] CO2 26 24 - 31 mEq/L [facility] Anion gap 10@ANIO 7 - 15 mEq/L [facility] BUN 20 8 - 23 mg/dL [facility] Creatinine 1.12 0.70 - 1.20 mg/dL [facility] Glucose 108 (H) 65 - 99 mg/dL [facility] Calcium 9.0 8.8 - 10.2 mg/dL [facility] Specimen Plasma specimen Performing Organization Address City/[facility] Phone Number [facility] DEPARTMENT OF PATHOLOGY AND [address] [place] [address] Partial thromboplastin time, activated (01/03/2019 4:18 PM CDT)Only the most recent of5 resultswithin the time period is included. Pathologist [facility] PTT 26.3 23.0 - 36.0 [facility] Comment: [facility] PTT therapeutic range for unfractionated heparin is 61.0-112.0 seconds which corresponds to Anti-Xa 0.3-0.7 U/ml. Specimen Blood Performing Organization Address [facility] Phone Number [facility] DEPARTMENT OF PATHOLOGY AND [address] [place] [phone] Prothrombin time with INR (01/03/2019 4:18 PM CDT)Only the most recent of5 resultswithin the time period is included. [facility] Prothrombin time 12.7 11.5 - 14.5 [facility] INR 1.0 [place] Comment: PENTECOSTALISM The International Normalized Ratio (INR) is a therapeutic HOSPITAL monitoring tool for patients who are stable on oral anticoagulant therapy. An INR of 2.0-3.0 is suggested for deep vein thrombosis/pulmonary embolism. Specimen Blood Performing Organization Address City/[facility] Cent[facility]ode Phone Number [facility] DEPARTMENT OF PATHOLOGY AND [address] [place] [id number] [place] [phone] CBC hemogram (01/03/2019 4:18 PM CDT) Pathologist [facility] WBC 6.97 4.50 - 11.00 k/uL [facility] RBC 4.40 4.40 - 6.00 m/uL [facility] HGB 14.3 14.0 - 18.0 g/dL [facility] HCT 39.3 (L) 41.0 - 51.0 % [facility] MCV 89.3 82.0 - 100.0 fL [facility] MCH 32.5 27.0 - 34.0 pg [facility] MCHC 36.4 31.0 - 37.0 g/dL [facility] RDW - SD 43.0 37.0 - 55.0 fL [facility] MPV 9.6 8.8 - 13.2 fL [facility] Platelet count 217 150 - 400 k/uL [facility] Nucleated RBC 0.00 /100 WBC [facility] Specimen Blood Performing Organization Address City/[facility] Phone Number [facility] DEPARTMENT OF PATHOLOGY AND [address] [place] [address] Gram stain (12/12/2018 11:18 AM CDT) Pathologist [facility] Gram stain result No WBC's or organisms seen. [facility] Comment: HOSPITAL Specimen Information Specimen Source: Urine Specimen Site: Clean catch Specimen Urine Performing Organization Address City/[facility] Phone Number [facility] DEPARTMENT OF PATHOLOGY AND [address] [place] [phone] Urine culture (12/12/2018 11:18 AM CDT)Only the most recent of2 resultswithin the time period is included. [facility] Urine culture No growth after 24 hours [facility] Comment: HOSPITAL Specimen Information Specimen Source: Urine Specimen Site: Clean catch Specimen Urine Performing Organization Address [facility] Phone Number [facility] DEPARTMENT OF PATHOLOGY AND [address] [place] [phone] ECG 12 lead (12/12/2018 9:06 AM CDT)Only the most recent of4 resultswithin the time period is included. Ventricular rate 50 [facility] Atrial rate 50 [facility] NH interval 190 [facility] QRSD interval 100 [facility] QT interval 450 [facility] QTC interval 410 [facility] P axis 1 68 [facility] QRS axis 1 36 [facility] T wave axis -54 [facility] EKG impression Sinus [facility] bradycardia-Incomplete right bundle branch block-ST & T wave abnormality, consider inferior ischemia-Abnormal ECG- Specimen Narrative Performed At Performing Organization Address City/[facility]/Zipcode Phone Number [facility] MUSE [address] [place] [address] Urinalysis screen and microscopy, with reflex to culture (12/12/2018 8:40 AM CDT)Only the most recent of2 resultswithin the time period is included. Specimen site Clean catch [facility] Color, UA Aria [facility] Appearance, UA Hazy [facility] Specific gravity, UA 1.019 1.001 - 1.035 [facility] pH, UA 5.0 5.0 - 8.5 [facility] Protein, UA 1+ (A) Negative [facility] Glucose, UA Negative Negative [facility] Ketones, UA Negative Negative [facility] Bilirubin, UA Negative Negative [facility] Blood, UA Moderate (A) Negative [facility] Nitrite, UA Negative Negative [facility] Urobilinogen, UA 2.0 (A) <2.0 [facility] Leukocyte esterase, Small (A) Negative [facility] Epithelial cells, UA <1 /HPF [facility] Round epithelial <1 0 - 1 /HPF [facility] cells, [facility] WBC, UA 40 (H) 0 - 1 /HPF [facility] RBC, UA 64 (H) 0 - 5 /HPF [facility] Bacteria, UA Moderate (A) None seen [facility] Yeast, UA None seen [facility] Yeast with None seen [facility] pseudohyphae, HOSPITAL Hyaline casts, UA 17 /LPF [facility] Specimen Urine Performing Organization Address City/[facility]/Zipcode Phone Number [facility] DEPARTMENT OF PATHOLOGY AND [address] [place] [address] GEN[address] [address] HIV Ag/Ab combination (12/12/2018 8:40 AM CDT)Only the most recent of2 resultswithin the time period is included. HIV Ag/Ab combination Non-reactive Non-reactive [facility] Specimen Blood Performing Organization Address City/State/Zipcode Phone Number [facility] DEPARTMENT OF PATHOLOGY AND [address] [place] [address] GENOMIC MEDICINE [facility] [address] [place] [address] Surgical pathology request (11/21/2018 1:56 PM CDT) [facility] DEPARTMENT OF PATHOLOGY AND GENOMIC MEDICINE Surgical pathology See link below [facility] DEPARTMENT OF report for PDF Lab PATHOLOGY AND Report GENOMIC MEDICINE Result status This is Final [facility] DEPARTMENT OF Report for PATHOLOGY AND [id number] GENOMIC MEDICINE Specimen Performing Organization Address City/State/Zipcode Phone Number [facility] DEPARTMENT OF PATHOLOGY AND [address] [place] [address] GENOMIC MEDICINE [place] URETHROGRAM URO (10/08/2018 9:44 AM CDT)[facility] Urodynamics (10/08/2018 9: 10 AM CDT) Micturition Max Flow 9.6 ml/s [facility] Micturition Avg Flow 3.9 ml/s [facility] Micturition Void Vol 269.3 ml [facility] Micturition Press Qmax 39.5 cm H2O [facility] Micturition Q PressMax 4.6 ml/s [facility] Micturition Peak Pressure 50.2 cm H2O [facility] Micturition Mean Pressure 39.6 cm H2O [facility] Specimen Narrative Performed At Performing Organization Address City/State/Zipcode Phone Number [facility] NM Bone Scan Whole Body (10/02/2018 12:18 PM CDT) Specimen Narrative Performed At PROCEDURE:NM BONE SCAN WHOLE BODY RADIANT CLINICAL HISTORY:C61 Malignant neoplasm of prostate, c61 COMPARISON:No prior bone scans available. [X-rays 05/29/2017 TECHNIQUE: The patient was injected with 25 millicuries of [id number] intravenously, followed 3 hours later by whole-body scanning in the anterior and posterior projections. FINDINGS: Mild degenerative uptake in the mid lumbar spine, lower cervical spine, right hip, knees, and shoulders. A few old right-sided rib fractures. Physiological renal excretion. Uncomplicated left hip prosthesis. IMPRESSION: No evidence of osseous metastatic disease. [facility]-[id number] Procedure Note Interface, Radiology Results Incoming - 10/02/2018 4:22 PM CDT PROCEDURE: NM BONE SCAN WHOLE BODY CLINICAL HISTORY: C61 Malignant neoplasm of prostate, c61 COMPARISON: No prior bone scans available. [X-rays 05/29/2017 TECHNIQUE: The patient was injected with 25 millicuries of [id number] intravenously, followed 3 hours later by whole-body scanning in the anterior and posterior projections. FINDINGS: Mild degenerative uptake in the mid lumbar spine, lower cervical spine, right hip, knees, and shoulders. A few old right-sided rib fractures. Physiological renal excretion. Uncomplicated left hip prosthesis. IMPRESSION: No evidence of osseous metastatic disease. [facility]-[id number] Performing Organization Address City/State/Zipcode Phone Number [facility] [address] [place] [address] Biopsy prostate (09/16/2018) Narrative Performed At Biopsy prostate (09/12/2018) Narrative Performed At POC urinalysis dipstick (09/09/2018 12:04 PM CDT)Only the most recent of2 resultswithin the time period is included. Color urine, POC Yellow Clarity urine, POC Clear Glucose urine, POC Negative Negative Bilirubin urine, POC Negative Negative Ketones urine, POC Trace (A) Negative Specific gravity urine, 1.025 1.005 - 1.030 POC Blood urine, POC Negative Negative pH urine, POC 6.0 5.0, 5.5, 6.0, 6.5, 7.0, 7.5, 8.0, 8.5 Protein urine, POC 2+ (A) Negative Urobilinogen urine, POC <2.0 <2.0 Nitrite urine, POC Negative Negative Leukocyte esterase Negative Negative urine, POC Specimen Urine US Needle Biopsy (09/09/2018 11:53 AM CDT) Specimen Narrative Performed At Ultrasound/ MRI guided Prostate Needle Biopsy DAVID DiagnosisElevated PSA PSA 21 Previous Bx:none Findings: Prostate echogenicity: Heterogenous Calcifications: Small focal Measurements: Whole Gland AP Diamter:3.3 cm. Trasverse:4.3 cm. Length 4.5 cm. Total Frrrhk59 mL. Nodule none Ultrasound guided biopsies under local anesthesia: 12 Template Biopsies. 3 Additional Biopsies ofMRI JAIMEE PI-RADS 5 Right . : Comments: Fusion guided prostate needle BX was performed by and procedure was tolerated very well. Total 15 cores were taken under local anesthesia 2% lidocaine 5 cc on each side. Performing Organization Address City/State/Zipcode Phone Number [facility] [address] [place] [address] MRI Prostate Wwo Contrast (09/04/2018) Narrative Performed At Cv wharf labourer procedure (07/03/2018 9:06 AM BENDING FRAME OPERATOR) Specimen Narrative Performed At A time-out was completed verifying correct patient, procedure, site, HM SYNGO positioning, and special equipment if applicable. The patient was placed in a supine position. The patient s right groin was prepped and draped in sterile fashion. Right femoral artery was cannulated with a 4F sheath. Coronary angiogram was performed by selectively cannulating right and left coronary arteries with use of JL4 and JR4 catheters, respectively. The SVG grafts to the OM and RCA were both cannulated with the JR4. The SWARTZ was cannulated subselectively with the JR4 catheter with assistance of Wholey wire. Dr. Dillan Du was present for the entire procedure. Findings: LM: 99% ostial occlusion, severely calcified lesion. Minimal antegrade flow via the [place] LM. LAD: Occluded in the proximal and mid segments. The second diagonal fills via a patent SWARTZ-LAD graft. Via this diagonal, the distal and mid LAD fill retrograde. The ostial diagonal has a 50% stenosis which appears similar to previous cath films. This ostial stenosis is noted as the rest of the LAD fills retrograde via this branch. LCx: Occluded proximally. Patent SVG-OM graft with 40-50% stenosis at the anastomic and [place] artery distal to insertion. This appears similar compared to angiography in 2016. RCA: [place] RCA not injected as noted to be ostial occlusion previously. The SVG-PDA is patent with good filling of the distal PDA and PL branches. Right dominant system. SVG-PDA patent as above. SVG-OM patent as above. SWARTZ-diagonal patent as above. Recommendations: No significant changes upon comparison to catheterization films in 2016. Recommend medical management of coronary artery atherosclerosis. Performing Organization Address City/State/Zipcode Phone Number [facility] [address] [place] [address] Comprehensive metabolic panel (06/27/2018 8:29 AM BENDING FRAME OPERATOR) Glucose 105 (H) 65 - 99 [facility] Comment: mg/dL [facility] Fasting reference interval For someone without known diabetes, a glucose value between 100 and 125 mg/dL is consistent with prediabetes and should be confirmed with a follow-up test. BUN, whole blood 18 7 - 25 mg/dL [place] [facility] Creatinine 0.97 0.70 - 1.18 [facility] Comment: mg/dL [facility] For patients >49 years of age, the reference limit for Creatinine is approximately 13% higher for people identified as -Canadian. EGFR Non-Afr. 74 > OR=60 [facility] Canadian mL/min/1.73m [facility] 2 EGFR 86 > OR=60 [facility] Canadian mL/min/1.73m [facility] 2 BUN/creatinine NOT APPLICABLE 6 - 22 [facility] ratio (calc) [facility] Sodium 140 135 - 146 [facility] mmol/L [facility] Potassium 4.4 3.5 - 5.3 [facility] mmol/L [facility] Chloride 102 98 - 110 [facility] mmol/L [facility] CO2 28 20 - 32 [facility] mmol/L [facility] Calcium 9.0 8.6 - 10.3 [facility] mg/dL [facility] Protein 6.8 6.1 - 8.1 [facility] g/dL [facility] Albumin, S 4.1 3.6 - 5.1 [facility] g/dL [facility] Globulin, total 2.7 1.9 - 3.7 [facility] g/dL (calc) [facility] Albumin/globulin 1.5 1.0 - 2.5 [facility] ratio (calc) [facility] Total bilirubin 0.7 0.2 - 1.2 [facility] mg/dL [facility] Alkaline 60 40 - 115 U/L [facility] phosphatase [facility] AST 12 10 - 35 U/L [facility] [place] ALT 8 (L) 9 - 46 U/L [facility] [place] Specimen Blood Narrative Performed At FASTING:YES [facility] FASTING: YES Resulting Agency Comment Performing Organization Information: Site ID: [id number] Name: [facility] Address: [address] [place] [address] Director: Suzanne Reeves Performing Organization Address City/State/Zipcode Phone Number [facility] [place] [address] [phone] Cv cta coronary arteries w contrast and ffr if needed (06/03/2018 11:25 AM BENDING FRAME OPERATOR) Specimen Narrative Performed At [facility] Nuclear Cardiology and Cardiac CT [address] [id number] CTA Coronary Arteries Report Pat.Name:ONEIL REYES Pat.ID:[id number] St.Date: 06/03/2018 Refer.MD:DILLAN DU MD Exam Time: 11:13:00 AM Study Type:CTA Coronary Arteries Height:72inBSA: 1.94 m2 DOBAge:1940,78Y Sex: MALE HR:57 bpm Nuclear Tech:Damien Apodaca, RT([place])(CT), [facility] Pat. Stat.:Outpatient CPT - 4: CCTA w Thoracic Aorta (NonCongenital) [id number] Nuclear Event ID:[id number] Order ID:[id number] Reason for Study:Abnormal stress test, CAD, prior CABG Procedures:CT Prospective (phases) SUMMARY: Technique: IV contrast was administered and sequential 0.[address] cuts were obtained through the chest using the Siemens Somatom Force CT scanner. Post-processing and 3D reconstruction were done using the [employer] workstation. Interactive image viewing and volumetric display and analysis were also performed. CTA RESULTS Left Main: A normal sized 4.3 mm artery which arises normally from the left sinus of Valsalva and divides into the left anterior descending and circumflex coronary arteries. Severe calcified atherosclerotic plaque is present with probable subtotal vs. total occlusion. Severe concentric calcification prevents accurate assessment. Left anterior descending (LAD): A normal sized 2.1 mm artery which wraps around the apex and gives off two diagonal branches. Severe predominantly calcified atherosclerotic plaque is present in the proximal and mid segments with probable subtotal vs. total occlusion. Severe calcification prevents accurate assessment. There is approximately 50% stenosis in the mid LAD just proximal to the takeoff of the second diagonal artery. The distal segment is a 2.2 mm artery which has no significant stenosis and only mild calcified atherosclerotic plaque. The first diagonal is a 2.0 mm bifurcating artery which has mild calcified atherosclerotic plaque present but with no significant stenosis. The second diagonal is a 1.9 mm trifurcating artery which has mild calcified atherosclerotic plaque present but no significant stenosis. Patent left internal mammary graft to the second diagonal coronary artery which has a widely patent anastomosis and no significant stenosis beyond the graft insertion.The distal LAD fills via the SWARTZ graft to the second diagonal artery. Left circumflex: A normal sized 3.6 mm non-dominant artery which arises normally from the left main and gives off two major obtuse marginal arteries before terminating in the AV groove. Severe calcified atherosclerotic plaque is present in the proximal, mid and distal segments with probable total vs. subtotal occlusion along its entire length. Severe calcification prevents accurate assessment. The first obtuse marginal is a 2.2 mm bifurcating artery which has severe predominantly calcified atherosclerotic plaque present at the ostium with subtotal vs. total occlusion. Patent saphenous vein graft to the first obtuse marginal coronary artery which has a severe (>70%) stenosis at the anastomosis site and severe (70%) stenosis in the [place] artery just beyond the graft insertion. The second obtuse marginal is a 2.8 mm trifurcating artery which has severe calcified atherosclerotic plaque present with probable subtotal vs. total occlusion and retrograde filling via collaterals. Right coronary artery: A normal sized 3.4 mm dominant artery which arises normally from the right sinus of Valsalva and gives off several right ventricular branches, the posterior descending artery and the posterolateral artery. Severe predominantly calcified atherosclerotic plaque is present in the proximal, mid and distal segments with probable subtotal vs. total occlusion in the proximal and mid segments.Severe calcification prevents accurate assessment. The posterior descending is a 3.3 mm bifurcating artery which has moderate calcified and non-calcified atherosclerotic plaque present but no significant stenosis. Patent saphenous vein graft to the posterior descending coronary artery which has a widely patent anastomosis and no significant stenosis beyond the graft insertion. The posterolateral is a 2.0 mm bifurcating artery which has no significant atherosclerotic plaquepresent and fills retrograde via the saphenous vein graft to the posterior descending artery. Ramus: None. Stents: None. Bypass Grafts: Patent left internal mammary graft to the second diagonal coronary artery which has a widely patent anastomosis and no significant stenosis beyond the graft insertion.The distal LAD fills via the SWARTZ graft to the second diagonal artery. Patent saphenous vein graft to the first obtuse marginal coronary artery but which has a severe stenosis at the anastomosis site and severe stenosis in the [place] artery beyond the graft insertion. Patent saphenous vein graft to the posterior descending coronary artery which has a widely patent anastomosis and no significant stenosis beyond the graft insertion. The posterolateral artery fills retrograde via the saphenous vein graft to the posterior descending artery. Pulmonary Arteries: Normal pulmonary artery sizes with no proximal thrombus identified. Left Atrial and Pulmonary Vein Dimensions: Left atrial size (A-P diameter) 3.3 cm. Normal PV anatomy Left superior PV22 mm. Left inferior PV14 mm. Right superior PV23 mm. Right inferior PV13 mm. There is no evidence of the left atrial appendage clot. Lipomatous hypertrophy of the interatrial septum. Patent foramen ovale. Left Ventricular Valve Morphology/Function: LV septal wall thickness 12 mm. Aortic valve is tri-leaflet with mild calcification and there is mild regurgitation (AROA 0.03 cm2). Mitral valve is normal without evidence of stenosis. Thoracic Aortic Dimensions: No aortic aneurysm or dissection is seen. Aortic root3.9 cm. Sinotubular junction 2.5 cm. Mid ascending aorta 3.6 cm. Distal ascending aorta 3.6 cm. Aortic arch 3.0 cm.There is normal takeoff of the great vessels and no significant stenosis in the proximal visualized segments. Bilateral vertebral arteries with significant ostial calcification which limits assessment of patency. Aortic Isthmus 2.8 cm. Descending thoracic aorta 2.8 cm. Pericardium: No pericardial effusion or pericardial thickening. Non-Cardiac Findings: Prior median sternotomy. Moderate hiatal hernia. CONCLUSION Coronary CTA shows severe coronary atherosclerosis with probable subtotal vs. total occlusion of the left main, proximal to mid LAD, circumflex and first obtuse marginal coronary arteries. Patent left internal mammary graft to the second diagonal coronary artery which has a widely patent anastomosis and no significant stenosis beyond the graft insertion.The distal LAD fills via the SWARTZ graft to the second diagonal artery. Patent saphenous vein graft to the first obtuse marginal coronary artery but which has a severe stenosis at the anastomosis site and severe stenosis in the [place] artery beyond the graft insertion. Patent saphenous vein graft to the posterior descending coronary artery which has a widely patent anastomosis and no significant stenosis beyond the graft insertion. The posterolateral artery fills retrograde via the saphenous vein graft to the posterior descending artery. Normal PV anatomy. There is no evidence of the left atrial appendage clot. No aortic aneurysm or dissection is seen. Aortic valve is tri-leaflet with mild calcification and there is mild regurgitation (AROA 0.03 cm2). Mitral valve is normal without evidence of stenosis. STUDY QUALITY The study quality is good. COMMENTS None. The above report was based on a dedicated Cardiovascular CTA Protocol and interpreted by a Retort Or Condenser Press Operator.Should a more comprehensive assessment of non-cardiovascular findings be desired, please consult a radiologist.These images are available in the [facility] [employer] PACS system. Signed 06/03/2018 05:53 PM Albert Valle MD Procedure Note Interface, Radiology Results In - 06/03/2018 6:30 PM BENDING FRAME OPERATOR Nuclear Cardiology and Cardiac CT [address] [place] [address] CTA Coronary Arteries Report Pat.Name: ONEIL REYES Pat.ID: [id number] St.Date: 06/03/2018 Refer.MD: DILLAN DU MD Exam Time: 11:13:00 AM Study Type:CTA Coronary Arteries Height: 72in BSA: 1.94 m2 Age: 9 1940,78Y Sex: MALE HR: 57 bpm Nuclear Tech:Damien Apodaca RT([place])(CT), [facility] Pat. Stat.:Outpatient CPT - 4: CCTA w Thoracic Aorta (NonCongenital) [id number] Nuclear Event ID:[id number] Order ID: [id number] Reason for Study:Abnormal stress test, CAD, prior CABG Procedures:CT Prospective (phases) SUMMARY: Technique: IV contrast was administered and sequential 0.[address] cuts were obtained through the chest using the Siemens Somatom Force CT scanner. Post-processing and 3D reconstruction were done using the [employer] workstation. Interactive image viewing and volumetric display and analysis were also performed. CTA RESULTS Left Main: A normal sized 4.3 mm artery which arises normally from the left sinus of Valsalva and divides into the left anterior descending and circumflex coronary arteries. Severe calcified atherosclerotic plaque is present with probable subtotal vs. total occlusion. Severe concentric calcification prevents accurate assessment. Left anterior descending (LAD): A normal sized 2.1 mm artery which wraps around the apex and gives off two diagonal branches. Severe predominantly calcified atherosclerotic plaque is present in the proximal and mid segments with probable subtotal vs. total occlusion. Severe calcification prevents accurate assessment. There is approximately 50% stenosis in the mid LAD just proximal to the takeoff of the second diagonal artery. The distal segment is a 2.2 mm artery which has no significant stenosis and only mild calcified atherosclerotic plaque. The first diagonal is a 2.0 mm bifurcating artery which has mild calcified atherosclerotic plaque present but with no significant stenosis. The second diagonal is a 1.9 mm trifurcating artery which has mild calcified atherosclerotic plaque present but no significant stenosis. Patent left internal mammary graft to the second diagonal coronary artery which has a widely patent anastomosis and no significant stenosis beyond the graft insertion. The distal LAD fills via the SWARTZ graft to the second diagonal artery. Left circumflex: A normal sized 3.6 mm non-dominant artery which arises normally from the left main and gives off two major obtuse marginal arteries before terminating in the AV groove. Severe calcified atherosclerotic plaque is present in the proximal, mid and distal segments with probable total vs. subtotal occlusion along its entire length. Severe calcification prevents accurate assessment. The first obtuse marginal is a 2.2 mm bifurcating artery which has severe predominantly calcified atherosclerotic plaque present at the ostium with subtotal vs. total occlusion. Patent saphenous vein graft to the first obtuse marginal coronary artery which has a severe (>70%) stenosis at the anastomosis site and severe (70%) stenosis in the [place] artery just beyond the graft insertion. The second obtuse marginal is a 2.8 mm trifurcating artery which has severe calcified atherosclerotic plaque present with probable subtotal vs. total occlusion and retrograde filling via collaterals. Right coronary artery: A normal sized 3.4 mm dominant artery which arises normally from the right sinus of Valsalva and gives off several right ventricular branches, the posterior descending artery and the posterolateral artery. Severe predominantly calcified atherosclerotic plaque is present in the proximal, mid and distal segments with probable subtotal vs. total occlusion in the proximal and mid segments. Severe calcification prevents accurate assessment. The posterior descending is a 3.3 mm bifurcating artery which has moderate calcified and non-calcified atherosclerotic plaque present but no significant stenosis. Patent saphenous vein graft to the posterior descending coronary artery which has a widely patent anastomosis and no significant stenosis beyond the graft insertion. The posterolateral is a 2.0 mm bifurcating artery which has no significant atherosclerotic plaque present and fills retrograde via the saphenous vein graft to the posterior descending artery. Ramus: None. Stents: None. Bypass Grafts: Patent left internal mammary graft to the second diagonal coronary artery which has a widely patent anastomosis and no significant stenosis beyond the graft insertion. The distal LAD fills via the SWARTZ graft to the second diagonal artery. Patent saphenous vein graft to the first obtuse marginal coronary artery but which has a severe stenosis at the anastomosis site and severe stenosis in the [place] artery beyond the graft insertion. Patent saphenous vein graft to the posterior descending coronary artery which has a widely patent anastomosis and no significant stenosis beyond the graft insertion. The posterolateral artery fills retrograde via the saphenous vein graft to the posterior descending artery. Pulmonary Arteries: Normal pulmonary artery sizes with no proximal thrombus identified. Left Atrial and Pulmonary Vein Dimensions: Left atrial size (A-P diameter) 3.3 cm. Normal PV anatomy Left superior PV22 mm. Left inferior PV14 mm. Right superior PV23 mm. Right inferior PV13 mm. There is no evidence of the left atrial appendage clot. Lipomatous hypertrophy of the interatrial septum. Patent foramen ovale. Left Ventricular Valve Morphology/Function: LV septal wall thickness 12 mm. Aortic valve is tri-leaflet with mild calcification and there is mild regurgitation (AROA 0.03 cm2). Mitral valve is normal without evidence of stenosis. Thoracic Aortic Dimensions: No aortic aneurysm or dissection is seen. Aortic root 3.9 cm. Sinotubular junction 2.5 cm. Mid ascending aorta 3.6 cm. Distal ascending aorta 3.6 cm. Aortic arch 3.0 cm. There is normal takeoff of the great vessels and no significant stenosis in the proximal visualized segments. Bilateral vertebral arteries with significant ostial calcification which limits assessment of patency. Aortic Isthmus 2.8 cm. Descending thoracic aorta 2.8 cm. Pericardium: No pericardial effusion or pericardial thickening. Non-Cardiac Findings: Prior median sternotomy. Moderate hiatal hernia. CONCLUSION Coronary CTA shows severe coronary atherosclerosis with probable subtotal vs. total occlusion of the left main, proximal to mid LAD, circumflex and first obtuse marginal coronary arteries. Patent left internal mammary graft to the second diagonal coronary artery which has a widely patent anastomosis and no significant stenosis beyond the graft insertion. The distal LAD fills via the SWARTZ graft to the second diagonal artery. Patent saphenous vein graft to the first obtuse marginal coronary artery but which has a severe stenosis at the anastomosis site and severe stenosis in the [place] artery beyond the graft insertion. Patent saphenous vein graft to the posterior descending coronary artery which has a widely patent anastomosis and no significant stenosis beyond the graft insertion. The posterolateral artery fills retrograde via the saphenous vein graft to the posterior descending artery. Normal PV anatomy. There is no evidence of the left atrial appendage clot. No aortic aneurysm or dissection is seen. Aortic valve is tri-leaflet with mild calcification and there is mild regurgitation (AROA 0.03 cm2). Mitral valve is normal without evidence of stenosis. STUDY QUALITY The study quality is good. COMMENTS None. The above report was based on a dedicated Cardiovascular CTA Protocol and interpreted by a Retort Or Condenser Press Operator. Should a more comprehensive assessment of non-cardiovascular findings be desired, please consult a radiologist. These images are available in the [facility] [employer]On PACS system. Signed 06/03/2018 05:53 PM Albert Valle MD Performing Organization Address City/[facility]/Zipcode Phone Number [facility] [address] [place] [address] POC creatinine (06/03/2018 11:02 AM BENDING FRAME OPERATOR) POC creatinine 0.9 0.7 - 1.2 [facility] Comment: mg/dl HOSPITAL Meter ID: [id number] Manager Pest: Christofer Zamarripa Specimen Blood Performing Organization Address [facility]/Zipcode Phone Number [facility] DEPARTMENT OF PATHOLOGY AND [address] [place] [address] GENOMIC MEDICINE [place] [id number] [place] [address] Nm myocardial perfusion (04/30/2018) Narrative Performed At after 01/05/2018 Insurance Payer Benefit Plan / Subscriber ID Effective Dates Phone Address Type Group MEDICARE MEDICARE PART A xxxxxxxxxxx 2004-Present [place], [place] Medicare AND B BCBS BCBS PAR/TRAD xxxxxxxxxxxx 2018-Present Indemnity PLAN [id number] (Home) [place] [id number] Advance Directives For more information, please contact: [phone] Type Date Recorded Patient Medical Affairs Director Explanation Advance Directives, Living Will and Medical Power of Tablet Making Machine Operator
--- NOTE | 2019-01-06 19:24 | ER ---
Nurse's Notes [facility] Name: Vaughn Webb Age: 78 yrs Sex: Male : 1940 Arrival Date: 01/06/2019 Time: 17:54 Bed 27 Private MD: Moustapha Bliss Diagnosis: Encounter for fitting and adjustment of non-vascular catheter-obstructed ellis Presentation: 01/06 18:10 Presenting complaint: Patient states: leg bag in place, had prostate surgery on the iw , got ellis out last Sunday, on he stopped urinating and came to ER to have ellis irrigated, had difficulty placing ellis and was sent to [facility] Sunday and Sat, last night had 1450 mL clear urine out, noticed today he was urinating but it wasn;t going into the bag, was urinating around the ellis, saw a clot in tube, called his urologist (Dr. Moustapha Mota) was told to come to ER, denies pain. Transition of care: patient was not received from another setting of care. Onset of symptoms was January 06, 2019. Risk Assessment: Do you want to hurt yourself or someone else? Patient reports no desire to harm self or others. Initial Sepsis Screen: Does the patient meet any 2 criteria? No. Patient's initial sepsis screen is negative. Does the patient have a suspected source of infection? No. Patient's initial sepsis screen is negative. Care prior to arrival: None. 18:10 Method Of Arrival: Ambulatory iw 18:10 Acuity: PEDRO LUIS 3 iw Triage Assessment: 19:42 General: Behavior is calm, cooperative. General: Appears in no apparent distress. rv uncomfortable. Historical: - Allergies: 18:16 No Known Allergies; iw - Home Meds: 18:16 amlodipine 10 mg tab 1 tab once daily [Active]; aspirin 81 mg Oral TbEC 1 tab once iw daily [Active]; rosuvastatin 20 mg Oral tab 1 tab once daily [Active]; citalopram 20 mg tab 1 tab once daily [Active]; atorvastatin 40 mg Oral tab 1 tab once daily [Active]; - PMHx: 18:16 Hyperlipidemia; Hypertension; iw - PSHx: 18:16 triple bypass; Carotid surgery; L hip; iw - Immunization history:: Adult Immunizations up to date. - Social history:: Smoking status: Patient/guardian denies using tobacco. - Ebola Screening: : Patient negative for fever greater than or equal to 101.5 degrees Fahrenheit, and additional compatible Ebola Virus Disease symptoms Patient denies exposure to infectious person Patient denies travel to an Ebola-affected area in the 21 days before illness onset No symptoms or risks identified at this time. Screenin:38 Abuse screen: Denies threats or abuse. Denies injuries from another. Nutritional rv screening: No deficits noted. Tuberculosis screening: No symptoms or risk factors identified. Fall Risk None identified. Assessment: 18:45 General: Appears in no apparent distress. uncomfortable. rv 18:45 Pain: Denies pain. Neuro: Level of Consciousness is awake, alert, obeys commands, rv Oriented to person, place, time, situation. Cardiovascular: Patient's skin is warm and dry. Respiratory: Airway is patent. GI: No signs and/or symptoms were reported involving the gastrointestinal system. : Parent/caregiver report the patient having inability to void since today from the catheter. EENT: No signs and/or symptoms were reported regarding the EENT system. Derm: Skin is intact. Musculoskeletal: No signs and/or symptoms reported regarding the musculoskeletal system. 19:40 Reassessment: IRRIGATED BLADDER WITH 3000ML OF NORMAL SALINE. BLOOD CLOTS TAKEN OUT, rv URINE CAME BACK CLEAR AFTER IRRIGATION. PRE-IRRIGATION URINE IS 208ML, POST-IRRIGATION URINE IS 28ML. Vital Signs: 18:18 BP 161 / 74; Pulse 64; Resp 16; Temp 98.2; Pulse Ox 98% on R/A; Weight 77.11 kg; Height iw 6 ft. 0 in. (182.88 cm); Pain 0/10; 19:40 BP 135 / 68; Pulse 66; Resp 16; Temp 98; Pulse Ox 99% on R/A; rv 18:18 Body Mass Index 23.06 (77.11 kg, 182.88 cm) iw ED Course: 17:54 Patient arrived in ED. mr 17:54 Moustapha Bliss MD is Private Physician. mr 18:09 Ruben Meneses MD is Attending Physician. greer 18:15 Triage completed. iw 18:18 Arm band placed on. iw 18:19 Prosper Staley RN is Primary Nurse. rv 19:00 Patient has correct armband on for positive identification. Bed in low position. Call rv light in reach. Side rails up X 1. Pulse ox on. NIBP on. 19:05 Ruben Goldstein PA is PHCP. cp 19:38 No provider procedures requiring assistance completed. Patient did not have IV access rv during this emergency room visit. Bladder irrigated via Ellis with 3L normal saline returned 3L Patient tolerated well. Administered Medications: No medications were administered Intake: 19:39 Tubes: 3000ml (); Total: 3000ml. rv Output: 19:39 Urine: 3000ml (Ellis); Total: 3000ml. rv Outcome: 19:24 Discharge ordered by MD. cp 19:43 Discharged to home ambulatory, with family. rv 19:43 Condition: good 19:43 Discharge instructions given to patient, family, Instructed on discharge instructions, follow up and referral plans. BLADDER IRRIGATION Demonstrated understanding of instructions, follow-up care, BLADDER IRRIGATION 19:43 Patient left the ED. rv Signatures: Ruben Meneses MD MD cha Rivera Ange mr Mahi Gore RN RN Ruben Goldstein PA PA cp Vicente, Ronaldo, MAXIME RN rv
--- NOTE | 2019-01-06 19:25 | EDPHYS ---
Physician Documentation [facility] Name: Vaughn Webb Age: 78 yrs Sex: Male : 1940 Arrival Date: 01/06/2019 Time: 17:54 Bed 27 Private MD: Moustapha Bliss ED Physician Ruben Meneses HPI: 01/06 18:30 This 78 yrs old Male presents to ER via Ambulatory with complaints of Problem cp With Urinary Catheter. 18:30 The patient presents with a Ellis catheter problem, is not draining. cp 18:30 Onset: The symptoms/episode began/occurred today. Associated signs and symptoms: cp Pertinent negatives: abdominal pain, constipation, diarrhea, fever, vomiting. Severity of symptoms: in the emergency department the symptoms are unchanged, despite home interventions. Historical: - Allergies: 18:16 No Known Allergies; iw - Home Meds: 18:16 amlodipine 10 mg tab 1 tab once daily [Active]; aspirin 81 mg Oral TbEC 1 tab once iw daily [Active]; rosuvastatin 20 mg Oral tab 1 tab once daily [Active]; citalopram 20 mg tab 1 tab once daily [Active]; atorvastatin 40 mg Oral tab 1 tab once daily [Active]; - PMHx: 18:16 Hyperlipidemia; Hypertension; iw - PSHx: 18:16 triple bypass; Carotid surgery; L hip; iw - Immunization history:: Adult Immunizations up to date. - Social history:: Smoking status: Patient/guardian denies using tobacco. - Ebola Screening: : Patient negative for fever greater than or equal to 101.5 degrees Fahrenheit, and additional compatible Ebola Virus Disease symptoms Patient denies exposure to infectious person Patient denies travel to an Ebola-affected area in the 21 days before illness onset No symptoms or risks identified at this time. ROS: 18:35 Constitutional: Negative for body aches, chills, fever, poor PO intake. cp 18:35 Eyes: Negative for injury, pain, redness, and discharge. cp 18:35 ENT: Negative for drainage from ear(s), ear pain, sore throat, difficulty swallowing, difficulty handling secretions. 18:35 Cardiovascular: Negative for chest pain, palpitations. 18:35 Respiratory: Negative for cough, shortness of breath, wheezing. 18:35 Abdomen/GI: Negative for abdominal pain, nausea, vomiting, and diarrhea. 18:35 : Positive for difficulty urinating, Negative for testicular pain 18:35 Neuro: Negative for altered mental status, headache, weakness. 18:35 All other systems are negative. Exam: 18:40 Constitutional: The patient appears in no acute distress, alert, awake, comfortable, cp non-toxic, well developed, well nourished. 18:40 Head/Face: Normocephalic, atraumatic. cp 18:40 Eyes: Periorbital structures: appear normal, Conjunctiva: normal, no exudate, no injection, Sclera: no appreciated abnormality, Lids and lashes: appear normal, bilaterally. 18:40 ENT: External ear(s): are unremarkable, Nose: is normal, Mouth: is normal, Posterior pharynx: Airway: no evidence of obstruction, patent. 18:40 Chest/axilla: Inspection: normal. 18:40 Cardiovascular: Rate: normal. 18:40 Respiratory: the patient does not display signs of respiratory distress, Respirations: normal. 18:40 Abdomen/GI: Inspection: abdomen appears normal, Bowel sounds: active, all quadrants, Palpation: abdomen is soft and non-tender, in all quadrants. 18:40 : a ellis is noted. Vital Signs: 18:18 BP 161 / 74; Pulse 64; Resp 16; Temp 98.2; Pulse Ox 98% on R/A; Weight 77.11 kg; Height iw 6 ft. 0 in. (182.88 cm); Pain 0/10; 19:40 BP 135 / 68; Pulse 66; Resp 16; Temp 98; Pulse Ox 99% on R/A; rv 18:18 Body Mass Index 23.06 (77.11 kg, 182.88 cm) iw MDM: 18:10 Patient medically screened. [facility] 19:23 Data reviewed: vital signs, nurses notes, and as a result, I will discharge patient. 19:23 Counseling: I had a detailed discussion with the patient and/or guardian regarding: the cp historical points, exam findings, and any diagnostic results supporting the discharge/admit diagnosis, to return to the emergency department if symptoms worsen or persist or if there are any questions or concerns that arise at home. Response to treatment: the patient's symptoms have markedly improved after treatment. ED course: Ellis irrigated and flushed by nursing staff. Ellis patent and draining. Will discharge to home for continued monitoring. Administered Medications: No medications were administered Disposition: 01/06/19 19:24 Discharged to Home. Impression: Encounter for fitting and adjustment of non-vascular catheter - obstructed ellis. - Condition is Stable. - Discharge Instructions: Ellis Catheter Care, Adult. - Medication Reconciliation Form, Thank You Letter, Antibiotic Education, Prescription Opioid Use form. - Follow up: Emergency Department; When: As needed; Reason: Worsening of condition. - Problem is new. - Symptoms have improved. Addendum: 01/07/2019 20:38 Co-signature as Attending Physician, Ruben Meneses MD I agree with the assessment and c berg plan of care. Signatures: Ruben Meneses MD MD cha Williams, Irene, RN RN Ruben Massey PA PA cp Vicente, Ronaldo, RN RN rv Corrections: (The following items were deleted from the chart) 01/06 19:43 19:24 01/06/2019 19:24 Discharged to Home. Impression: Encounter for fitting and rv adjustment of non-vascular catheter - obstructed ellis. Condition is Stable. Forms are Medication Reconciliation Form, Thank You Letter, Antibiotic Education, Prescription Opioid Use. Follow up: Emergency Department; When: As needed; Reason: Worsening of condition. Problem is new. Symptoms have improved. cp
[2019-01-06 20:05] VITALS: BP 135/68; TEMP 98; O2SAT 99
== END 2019-01-06 19:43 | disposition home or self-care (01) ==
LOC: ER 17:48
DX: Z46.82 Encounter for fitting and adjustment of non-vascular catheter (principal); I10 Essential (primary) hypertension; E78.5 Hyperlipidemia, unspecified; Z79.82 Long term (current) use of aspirin
CPT/HCPCS: 51700; 99284

== ENCOUNTER 2019-04-26 18:26 | Emergency (ER) | payer OTHER, BC ==
--- NOTE | 2019-04-26 21:46 | EDPHYS ---
Physician Documentation [facility] Name: Vaughn Webb Age: 79 yrs Sex: Male : 1940 Arrival Date: 04/26/2019 Time: 18:27 Bed 7 Private MD: Moustapha Bliss ED Physician Ruben Meneses HPI: 04/26 19:25 This 79 yrs old Male presents to ER via Ambulatory with complaints of Urinary pm1 Retention. 19:25 The patient presents with urinary symptoms, retention. Onset: The symptoms/episode pm1 began/occurred today, and became worse Has decreased stream and dribbling for the past 1 month. Modifying factors: The symptoms are alleviated by nothing, the symptoms are aggravated by nothing. Associated signs and symptoms: Pertinent positives: abdominal pain, dysuria, Pertinent negatives: fever, hematuria. Severity of symptoms: in the emergency department the symptoms are unchanged. The patient has been recently seen by a physician: Dr. Moustapha Mota MD. Historical: - Allergies: 18:39 No Known Allergies; sv - PMHx: 18:39 Hyperlipidemia; Hypertension; sv - PSHx: 18:39 Carotid surgery; triple bypass; L hip; sv - Immunization history:: Flu vaccine is up to date. - Social history:: Smoking status: Patient/guardian denies using tobacco. - Ebola Screening: : No symptoms or risks identified at this time. ROS: 19:25 Constitutional: Negative for fever, chills, and weight loss. pm1 19:25 Cardiovascular: Negative for chest pain, palpitations, and edema, Respiratory: Negative for shortness of breath, cough, wheezing, and pleuritic chest pain, Back: Negative for injury and pain. 19:25 MS/Extremity: Negative for injury and deformity, Skin: Negative for injury, rash, and discoloration, Neuro: Negative for headache, weakness, numbness, tingling, and seizure. 19:25 Abdomen/GI: Positive for abdominal pain, of the suprapubic area, Negative for nausea, vomiting, and diarrhea. 19:25 : Positive for small amounts, burning with urination, difficulty urinating, Negative for hematuria, flank pain. 19:25 All other systems are negative. Exam: 19:25 Constitutional: This is a well developed, well nourished patient who is awake, alert, pm1 and in no acute distress. Head/Face: Normocephalic, atraumatic. Neck: Trachea midline, no thyromegaly or masses palpated, and no cervical lymphadenopathy. Supple, full range of motion without nuchal rigidity, or vertebral point tenderness. No Meningismus. Chest/axilla: Normal chest wall appearance and motion. Nontender with no deformity. No lesions are appreciated. Cardiovascular: Regular rate and rhythm with a normal S1 and S2. No gallops, murmurs, or rubs. Normal PMI, no JVD. No pulse deficits. Respiratory: Lungs have equal breath sounds bilaterally, clear to auscultation and percussion. No rales, rhonchi or wheezes noted. No increased work of breathing, no retractions or nasal flaring. 19:25 Back: No spinal tenderness. No costovertebral tenderness. Full range of motion. Skin: Warm, dry with normal turgor. Normal color with no rashes, no lesions, and no evidence of cellulitis. MS/ Extremity: Pulses equal, no cyanosis. Neurovascular intact. Full, normal range of motion. 19:25 Abdomen/GI: Inspection: abdomen appears normal, Bowel sounds: normal, Palpation: soft, mild abdominal tenderness, in the suprapubic area, mass, is not appreciated, rebound tenderness, is not appreciated. 19:25 Neuro: Orientation: is normal, Motor: is normal, moves all fours. 21:58 : Bladder: 395 mL on bladder scanner. pm1 Vital Signs: 18:39 BP 142 / 75; Pulse 60; Resp 17; Temp 98.2; Pulse Ox 98% ; Weight 79.38 kg; Height 6 ft. sv 0 in. (182.88 cm); Pain 2/10; 21:15 Pulse 57; Resp 17 S; Pulse Ox 99% on R/A; jd3 22:00 BP 153 / 71; Pulse 65; Resp 18 S; Pulse Ox 100% on R/A; jd3 23:05 BP 158 / 70; Pulse 55; Resp 17 S; Pulse Ox 95% on R/A; jd3 18:39 Body Mass Index 23.73 (79.38 kg, 182.88 cm) sv MDM: 18:46 Patient medically screened. pm1 18:46 Data reviewed: vital signs. Data interpreted: Pulse oximetry: on room air is 98 %. pm1 Interpretation: normal. 21:00 ED course: Unsuccessful Rodriguez catheter attempts with 16, 14, 12 Fr coud and 15 Fr pm1 straight. Will consult with patient's urologist Moustapha Mota MD. 21:00 ED course: Patient able to urinate 50 mL x 2. pm1 21:42 Physician consultation: MD Yasmeen Jack was contacted at 21:35, regarding regarding pm1 transfer, patient's condition, and will see patient. 21:42 Physician consultation: MD Yasmeen Jack No further orders. Urine and Urine Culture. pm1 04/26 19:25 Order name: Urine Microscopic Only; Complete Time: 22:37 pm1 04/26 22:03 Order name: Urine Culture pm1 04/26 19:25 Order name: Bladder Scanner; Complete Time: 20:11 pm1 04/26 22:10 Order name: CBC with Diff; Complete Time: 22:37 rn 04/26 22:10 Order name: BMP; Complete Time: 22:49 rn 04/26 22:14 Order name: Urine Dipstick--Ancillary (enter results); Complete Time: 22:37 ar5 04/26 19:25 Order name: Urine Dipstick-Ancillary (obtain specimen); Complete Time: 22:13 pm1 04/26 21:59 Order name: IV Saline Lock; Complete Time: 21:59 jd3 Administered Medications: No medications were administered Disposition: 04/26/19 21:45 Transfer ordered to [facility]. Diagnosis is Retention of urine. - Reason for transfer: Higher level of care. - Accepting physician is Yasmeen Jack MD. - Condition is Stable. - Problem is new. - Symptoms have improved. Addendum: 04/28/2019 10:39 Co-signature as Attending Physician, Ruben Meneses MD I agree with the assessment and c berg plan of care. Signatures: Dispatcher [employer] EDMS Carolyn Florentino RN RN sv Anderson, Corey, MD MD cha Nieto, Roman, MD MD rn Marinas, Patrick, CONFERENCE SERVICES MANAGER CONFERENCE SERVICES MANAGER pm1 Eddi Patrick RN RN jd3 Corrections: (The following items were deleted from the chart) 04/26 23:54 21:45 04/26/2019 21:45 Transfer ordered to [facility]. Diagnosis is jd3 Retention of urine. Reason for transfer: Higher level of care. Accepting physician is Yasmeen Jack MD. Condition is Stable. Problem is new. Symptoms have improved. pm1
--- NOTE | 2019-04-26 21:46 | ER ---
Nurse's Notes [facility] Name: Vaughn Webb Age: 79 yrs Sex: Male : 1940 Arrival Date: 04/26/2019 Time: 18:27 Bed 7 Private MD: Moustapha Bliss Diagnosis: Retention of urine Presentation: 04/26 18:37 Presenting complaint: Patient states: unable to urinate, had a prostate sx in Dec 2018, sv saw his urologist recently and is supposed to have a procedure done next week but now he has been unable to urinate. Transition of care: patient was not received from another setting of care. Onset of symptoms is unknown. Risk Assessment: Do you want to hurt yourself or someone else? Patient reports no desire to harm self or others. Care prior to arrival: None. 18:37 Method Of Arrival: Ambulatory sv 18:37 Acuity: PEDRO LUIS 3 sv 20:10 Initial Sepsis Screen: Does the patient meet any 2 criteria? No. Patient's initial jd3 sepsis screen is negative. Does the patient have a suspected source of infection? No. Patient's initial sepsis screen is negative. Historical: - Allergies: 18:39 No Known Allergies; sv - PMHx: 18:39 Hyperlipidemia; Hypertension; sv - PSHx: 18:39 Carotid surgery; triple bypass; L hip; sv - Immunization history:: Flu vaccine is up to date. - Social history:: Smoking status: Patient/guardian denies using tobacco. - Ebola Screening: : No symptoms or risks identified at this time. Screenin:11 Abuse screen: Denies threats or abuse. Nutritional screening: No deficits noted. jd3 Tuberculosis screening: No symptoms or risk factors identified. Fall Risk Ambulatory Aid- None/Bed Rest/Nurse Assist (0 pts). Gait- Normal/Bed Rest/Wheelchair (0 pts) Mental Status- Oriented to own ability (0 pts). Total Murry Fall Scale indicates No Risk (0-24 pts). Assessment: 19:12 General: Appears in no apparent distress. uncomfortable, Behavior is calm, cooperative, jd3 appropriate for age. Pain: Complains of pain in suprapubic area Quality of pain is described as aching, pressure. Neuro: Level of Consciousness is awake, alert, obeys commands, Oriented to person, place, time, situation. Cardiovascular: Capillary refill < 3 seconds Patient's skin is warm and dry. Respiratory: Airway is patent Respiratory effort is even, unlabored, Respiratory pattern is regular, symmetrical, Denies cough, shortness of breath. GI: No signs and/or symptoms were reported involving the gastrointestinal system. Reports constipation, Patient currently denies diarrhea, nausea, vomiting. : Parent/caregiver report the patient having inability to void reports little urine output with urination attempts. EENT: No signs and/or symptoms were reported regarding the EENT system. Derm: Skin is intact, Skin is dry, Skin is normal, Skin temperature is warm. Musculoskeletal: Circulation, motion, and sensation intact. Range of motion: intact in all extremities. 20:00 Reassessment: Patient appears in no apparent distress at this time. Patient and/or jd3 family updated on plan of care and expected duration. Pain level reassessed. Patient is alert, oriented x 3, equal unlabored respirations, skin warm/dry/pink. attempted Rodriguez catheter placement with help from Jose BREWER with no success. awaiting further orders. 21:14 Reassessment: Patient appears in no apparent distress at this time. Patient and/or jd3 family updated on plan of care and expected duration. Pain level reassessed. Patient is alert, oriented x 3, equal unlabored respirations, skin warm/dry/pink. Mitchel HIGHTOWER and Jose BACK PANEL PADDER at bedside attempting catheter insertion with no success. awaiting further orders. 22:00 Reassessment: Patient appears in no apparent distress at this time. Patient and/or jd3 family updated on plan of care and expected duration. Pain level reassessed. Patient is alert, oriented x 3, equal unlabored respirations, skin warm/dry/pink. provider at bedside discussing plan of care. 23:05 Reassessment: Patient appears in no apparent distress at this time. Patient and/or jd3 family updated on plan of care and expected duration. Pain level reassessed. Patient is alert, oriented x 3, equal unlabored respirations, skin warm/dry/pink. provider on the phone with accepting physician for transfer. 23:30 Reassessment: report given to Vickie SWARTZ at [facility]. awaiting transfer. jd3 23:53 Reassessment: Patient appears in no apparent distress at this time. Patient and/or jd3 family updated on plan of care and expected duration. Pain level reassessed. Patient is alert, oriented x 3, equal unlabored respirations, skin warm/dry/pink. report given to EMS. Vital Signs: 18:39 BP 142 / 75; Pulse 60; Resp 17; Temp 98.2; Pulse Ox 98% ; Weight 79.38 kg; Height 6 ft. sv 0 in. (182.88 cm); Pain 2/10; 21:15 Pulse 57; Resp 17 S; Pulse Ox 99% on R/A; jd3 22:00 BP 153 / 71; Pulse 65; Resp 18 S; Pulse Ox 100% on R/A; jd3 23:05 BP 158 / 70; Pulse 55; Resp 17 S; Pulse Ox 95% on R/A; jd3 18:39 Body Mass Index 23.73 (79.38 kg, 182.88 cm) sv ED Course: 18:27 Patient arrived in ED. as 18:28 Moustapha Bliss MD is Private Physician. as 18:39 Triage completed. sv 18:40 Arm band placed on. sv 18:45 Jose Leger NP is PHCP. pm1 18:45 Ruben Meneses MD is Attending Physician. pm1 19:12 Eddi Patrick RN is Primary Nurse. jd3 20:11 Patient has correct armband on for positive identification. Placed in gown. Bed in low jd3 position. Call light in reach. Side rails up X 1. Adult w/ patient. 21:59 Inserted saline lock: 20 gauge in right forearm, using aseptic technique. jd3 22:22 BMP Sent. jd3 22:22 CBC with Diff Sent. jd3 23:54 No provider procedures requiring assistance completed. Patient transferred, IV remains jd3 in place. Administered Medications: No medications were administered Outcome: 21:45 ER care complete, transfer ordered by MD. pm1 23:54 Transferred by ground EMS to [facility], Transfer form completed. jd3 23:54 Condition: stable 23:54 Instructed on the need for transfer, Demonstrated understanding of instructions. 23:54 Patient left the ED. jd3 Signatures: Carolyn Florentino RN RN Maya Villa as Jose Leger NP BACK PANEL PADDER pm1 Eddi Patrick RN RN jd3 Corrections: (The following items were deleted from the chart) 18:40 18:37 Presenting complaint: Patient states: unable to urinate, had a prostate sx in Dec, saw his urologist recently and is supposed to have a procedure done next week but now he has been unable to urinate. sv 20:10 19:12 : No signs and/or symptoms were reported regarding the genitourinary system. [id number] 21:15 20:00 Reassessment: Patient appears in no apparent distress at this time. Patient jd3 and/or family updated on plan of care and expected duration. Pain level reassessed. Patient is alert, oriented x 3, equal unlabored respirations, skin warm/dry/pink. attempted Rodriguez catheter placement with help from Jose BREWER with no success. awaiting further orders. jd3 23:54 23:54 Transferred by ground EMS to [facility], Transfer form completed. jd3 X-rays sent w/ patient. jd3
[2019-04-26 22:28] LABS: Urine Blood 3+ (NEG); Urine Glucose NEGATIVE (NEG); Urine Protein 1+ (NEG); Urine Specific Gravity 1.015 (1.005-1.030)
[2019-04-26 22:32] LABS: Absolute Lymphocytes (CBC) 1.4 K/uL (0.7-4.9); Basophils % 0.4 % (0-1.3); Hematocrit 37.5 % (39.6-49.0); Lymphocytes % 26.4 % (15.3-44.8); MPV 8.4 fL (7.6-11.3); RBC Red Blood Cell Count 3.98 M/uL (4.33-5.43)
[2019-04-26 22:34] LABS: Urine Amorphous Sediment 1+ /HPF (NONE SEEN); Urine Bacteria 20-50 /HPF (NONE SEEN); Urine Culture Reflex Order NOT NEEDED; Urine RBC >50 /HPF (NONE SEEN)
[2019-04-27 01:43] VITALS: TEMP 98.2
[2019-04-27 01:47] VITALS: BP 158/70; O2SAT 95
== END 2019-04-26 23:54 | disposition short-term general hospital (02) ==
LOC: ER 18:26
DX: R33.9 Retention of urine, unspecified (principal)
CPT/HCPCS: 36415; 80048; 81003; 81015; 85025; 87086; 87088; 99285

== ENCOUNTER 2019-05-31 06:58 | Emergency (ER) | payer OTHER, BC ==
--- NOTE | 2019-05-31 08:07 | ER ---
Nurse's Notes [facility] Name: Vaughn Webb Age: 79 yrs Sex: Male : 1940 Arrival Date: 05/31/2019 Time: 07:00 Bed 13 Private MD: Diagnosis: Bladder disorder, unspecified Presentation: 05/31 07:13 Presenting complaint: Patient states: Had a procedure yesterday and they clipped the jl7 neck of the bladder, placed a catheter and it was working well. Last night the catheter stopped draining and urine was leaking around, the doctor said to come here for a bladder scan and see if it needs to be irrigated. Transition of care: patient was not received from another setting of care. Onset of symptoms was May 31, 2019. Risk Assessment: Do you want to hurt yourself or someone else? Patient reports no desire to harm self or others. Initial Sepsis Screen: Does the patient meet any 2 criteria? No. Patient's initial sepsis screen is negative. Does the patient have a suspected source of infection? No. Patient's initial sepsis screen is negative. Care prior to arrival: None. 07:13 Method Of Arrival: Ambulatory 7 07:13 Acuity: PEDRO LUIS 3 jl7 Triage Assessment: 07:19 General: Appears in no apparent distress. uncomfortable, Behavior is calm, cooperative, jl7 appropriate for age. Pain: Denies pain. Neuro: Level of Consciousness is awake, alert, obeys commands, Oriented to person, place, time, situation. Cardiovascular: Patient's skin is warm and dry. Respiratory: Airway is patent Respiratory effort is even, unlabored, Respiratory pattern is regular, symmetrical. : Reports catheter not draining. Derm: Skin is pink, warm \T\ dry. Historical: - Allergies: 07:19 No Known Allergies; jl7 - Home Meds: 07:19 amlodipine 10 mg tab 1 tab once daily [Active]; aspirin 81 mg Oral TbEC 1 tab once jl7 daily [Active]; atorvastatin 40 mg Oral tab 1 tab once daily [Active]; citalopram 20 mg tab 1 tab once daily [Active]; Plavix 75 mg Oral tab 1 tab once daily [Active]; rosuvastatin 20 mg Oral tab 1 tab once daily [Active]; - PMHx: 07:19 Hyperlipidemia; Hypertension; jl7 - PSHx: 07:19 Carotid surgery; triple bypass; L hip; jl7 - Immunization history:: Adult Immunizations unknown. - Social history:: Smoking status: Patient denies any tobacco usage or history of. Patient/guardian denies using alcohol, street drugs, The patient lives with family. - Ebola Screening: : No symptoms or risks identified at this time. - Family history:: not pertinent. Screenin:30 Abuse screen: Denies threats or abuse. Denies injuries from another. Nutritional jl7 screening: No deficits noted. Tuberculosis screening: No symptoms or risk factors identified. Fall Risk None identified. Assessment: 07:30 General: See triage assessment. jl7 Vital Signs: 07:19 BP 147 / 67; Pulse 68; Resp 17 S; Temp 97.9(O); Pulse Ox 98% on R/A; Weight 79.38 kg jl7 (R); Height 6 ft. (182.88 cm) (R); Pain 0/10; 07:19 Body Mass Index 23.73 (79.38 kg, 182.88 cm) jl7 ED Course: 07:00 Patient arrived in ED. cl3 07:01 Milton Wells RN is Primary Nurse. jl7 07:07 Colby Goss MD is Attending Physician. ma2 07:16 Triage completed. jl7 07:19 Arm band placed on right wrist. jl7 07:42 Bladder scan completed. 110. mh5 07:43 Patient has correct armband on for positive identification. Bed in low position. Call mh5 light in reach. Side rails up X 1. Adult w/ patient. Warm blanket given. Pulse ox on. NIBP on. 08:15 Bladder irrigated via Ellis with 500 ml normal saline returned yellow urine with blood jl7 clots Patient tolerated well. 08:39 No provider procedures requiring assistance completed. Patient did not have IV access jl7 during this emergency room visit. Administered Medications: 08:15 Drug: flush ellis 1 application Route: Topical; Site: affected area; jl7 Outcome: 08:05 Discharge ordered by . ma2 08:15 Discharged to home ambulatory, with family. jl7 08:15 Condition: stable 08:15 Discharge instructions given to patient, family, Instructed on discharge instructions, follow up and referral plans. Demonstrated understanding of instructions, follow-up care. 08:40 Patient left the ED. jl7 Signatures: Glenny Aguilar 5 Milton Wells RN RN jl7 Colby Goss MD MD ma2 Shellie Lynch cl3
--- NOTE | 2019-05-31 08:07 | EDPHYS ---
Physician Documentation [facility] Name: Vaughn Webb Age: 79 yrs Sex: Male : 1940 Arrival Date: 05/31/2019 Time: 07:00 Bed 13 Private MD: ED Physician Colby Goss HPI: 05/31 07:44 This 79 yrs old Male presents to ER via Ambulatory with complaints of Problem ma2 With Urinary Catheter. 07:44 Onset: The symptoms/episode began/occurred gradually, 1 week(s) ago. Onset: The ma2 symptoms/episode began/occurred 1 day(s) ago. Severity of pain: At its worst the pain was mild in the emergency department the pain is unchanged. ellis placed by urologist who advised to flush foely as he has 110 ml residuals at thist time ad feels bladder is full, he has no symptoms . Historical: - Allergies: 07:19 No Known Allergies; jl7 - Home Meds: 07:19 amlodipine 10 mg tab 1 tab once daily [Active]; aspirin 81 mg Oral TbEC 1 tab once jl7 daily [Active]; atorvastatin 40 mg Oral tab 1 tab once daily [Active]; citalopram 20 mg tab 1 tab once daily [Active]; Plavix 75 mg Oral tab 1 tab once daily [Active]; rosuvastatin 20 mg Oral tab 1 tab once daily [Active]; - PMHx: 07:19 Hyperlipidemia; Hypertension; jl7 - PSHx: 07:19 Carotid surgery; triple bypass; L hip; jl7 - Immunization history:: Adult Immunizations unknown. - Social history:: Smoking status: Patient denies any tobacco usage or history of. Patient/guardian denies using alcohol, street drugs, The patient lives with family. - Ebola Screening: : No symptoms or risks identified at this time. - Family history:: not pertinent. ROS: 07:44 Constitutional: Negative for fever, chills, and weight loss, Eyes: Negative for injury, ma2 pain, redness, and discharge, ENT: Negative for injury, pain, and discharge, Neck: Negative for injury, pain, and swelling, Cardiovascular: Negative for chest pain, palpitations, and edema, Respiratory: Negative for shortness of breath, cough, wheezing, and pleuritic chest pain, Abdomen/GI: Negative for abdominal pain, nausea, diarrhea, and constipation, Back: Negative for injury and pain, : Negative for injury, bleeding, discharge, and swelling, MS/Extremity: Negative for injury and deformity, Skin: Negative for injury, rash, and discoloration, Neuro: Negative for headache, weakness, numbness, tingling, and seizure, Psych: Negative for depression, anxiety, suicide ideation, homicidal ideation, and hallucinations, Allergy/Immunology: Negative for hives, rash, and allergies. 07:44 All other systems are negative. Exam: 07:44 Constitutional: This is a well developed, well nourished patient who is awake, alert, ma2 and in no acute distress. Chest/axilla: Normal chest wall appearance and motion. Nontender with no deformity. No lesions are appreciated. Cardiovascular: Regular rate and rhythm with a normal S1 and S2. No gallops, murmurs, or rubs. Normal PMI, no JVD. No pulse deficits. Respiratory: Lungs have equal breath sounds bilaterally, clear to auscultation and percussion. No rales, rhonchi or wheezes noted. No increased work of breathing, no retractions or nasal flaring. Abdomen/GI: Soft, non-tender, with normal bowel sounds. No distension or tympany. No guarding or rebound. No evidence of tenderness throughout. Male : ellis is 18 fr, in place urine in bag normal color, bladder is destended, Normal genitalia with no discharge or lesions. MS/ Extremity: Pulses equal, no cyanosis. Neurovascular intact. Full, normal range of motion. Neuro: Awake and alert, GCS 15, oriented to person, place, time, and situation. Cranial nerves II-XII grossly intact. Motor strength 5/5 in all extremities. Sensory grossly intact. Cerebellar exam normal. Normal gait. Vital Signs: 07:19 BP 147 / 67; Pulse 68; Resp 17 S; Temp 97.9(O); Pulse Ox 98% on R/A; Weight 79.38 kg 7 (R); Height 6 ft. (182.88 cm) (R); Pain 0/10; 07:19 Body Mass Index 23.73 (79.38 kg, 182.88 cm) 7 MDM: 07:07 Patient medically screened. ma2 07:44 Differential diagnosis: likely partial ellis obstruction with clot or debris or tissue ma2 as he just had cystoscope with bladder tissue removal and has prostate ca, unlikley uti or other conditions. Data reviewed: vital signs, nurses notes. Counseling: I had a detailed discussion with the patient and/or guardian regarding: the historical points, exam findings, and any diagnostic results supporting the discharge/admit diagnosis, the presence of at least one elevated blood pressure reading (>120/80) during this emergency department visit, the need for outpatient follow up. Response to treatment: the patient's symptoms have resolved after treatment. Administered Medications: 08:15 Drug: flush ellis 1 application Route: Topical; Site: affected area; jl7 Disposition: 05/31/19 08:05 Discharged to Home. Impression: Bladder disorder, unspecified. - Condition is Stable. - Discharge Instructions: Ellis Catheter Care, Adult. - Medication Reconciliation Form, Thank You Letter, Antibiotic Education, Prescription Opioid Use form. - Follow up: Private Physician; When: Tomorrow; Reason: Continuance of care. Signatures: Milton Wells RN RN jl7 Colby Goss MD MD ma2 Corrections: (The following items were deleted from the chart) 08:40 08:05 05/31/2019 08:05 Discharged to Home. Impression: Bladder disorder, unspecified. jl7 Condition is Stable. Forms are Medication Reconciliation Form, Thank You Letter, Antibiotic Education, Prescription Opioid Use. Follow up: Private Physician; When: Tomorrow; Reason: Continuance of care. ma2
[2019-05-31 08:46] VITALS: BP 147/67; TEMP 97.9; O2SAT 98
== END 2019-05-31 08:40 | disposition home or self-care (01) ==
LOC: ER 06:58
DX: N32.9 Bladder disorder, unspecified (principal); I10 Essential (primary) hypertension; E78.5 Hyperlipidemia, unspecified; Z95.1 Presence of aortocoronary bypass graft; Z79.01 Long term (current) use of anticoagulants; Z79.82 Long term (current) use of aspirin
CPT/HCPCS: 51700; 99284

== ENCOUNTER 2021-10-11 00:47 | Inpatient (IN) | payer OTHER, BC ==
--- OUTSIDE RECORDS SUMMARY | 2021-10-11 00:52 | XMS REPORT | Continuity of Care Document ---
:1940 Author Organization [facility] t Address [address] [place] [address] Care Team Providers Name Role Phone Asked, Pcp Primary Care Physician Unavailable Erin Ayala Attending Clinician Unavailable ANA LAURA Attending Clinician Unavailable JOSE Attending Clinician Unavailable ESTHER Attending Clinician Unavailable Dusty Day MD Attending Clinician Tawanna Yoder CRNA Attending Clinician Janiya FARIAS Attending Clinician Unavailable Titus Attending Clinician Unavailable Charlie FARIAS Attending Clinician Unavailable Chi STERLING, B. Attending Clinician Jeanne STERLING Attending Clinician Peter FARIAS Attending Clinician Unavailable Felice_Arina Attending Clinician Unavailable Leisa FARIAS Attending Clinician Unavailable Shea Viveros Attending Clinician [phone] Todd Attending Clinician Unavailable Claudia Castillo MD Attending Clinician Lucie Mars Attending Clinician Unavailable Lucie Mars Attending Clinician Unavailable MD Sarah GARCIA Attending Clinician Unavailable DIMPLE Attending Clinician Unavailable ONAIWU Attending Clinician Unavailable ESTHER Admitting Clinician Unavailable Rebecca Admitting Clinician Unavailable Lucie Mars Admitting Clinician Unavailable JOSE Admitting Clinician Unavailable MD Sarah GARCIA Admitting Clinician Unavailable ONAIWU Admitting Clinician Unavailable ANA LAURA Admitting Clinician Unavailable Payers Payer Name Policy Type Policy Number Effective Date Expiration Date S ource [place] [id number] 2004 [employer] 00:00:00 [id number] 2018 [place] ([place]ICARE 00:00:00 SUPPLEMENT) Problems Condition Condition Condition Status Onset Resolution Last Treating Co mments Source Name Details Category Date Date Treatment Clinician Date 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 Added automatic ally from request for surgery [id number] Arthritis Arthritis Disease Active 2020-05 [facility] of right of right 2- st wrist wrist 00:00: Hospita 00 l Right arm Right arm Disease Active 2020-05 [facility] pain pain 2- st 00:00: Hospita 00 l Right arm Right arm Disease Active 2020-05 [facility] numbness numbness 2- st 00:00: Hospita 00 l Urinary Urinary Disease Active 2018-05 [facility] retention retention 2-15 st 00:00: Hospita 00 l Closed Closed Disease Active 2018-05 [facility] fracture fracture 2-15 st of of 00:00: Hospita acetabulum acetabulum 00 l Closed Closed Disease Active 2018-05 [facility] fracture fracture 2-15 st of of 00:00: Hospita calcaneus calcaneus 00 l Carotid Carotid Disease Active 2018-05 [facility] artery artery 2-15 st disease disease 00:00: Hospita 00 l Peripheral Peripheral Disease Active 2018-05 M ethodi arterial arterial 2-15 st occlusive occlusive 00:00: Hosp pricilla disease disease 00 l Acute Acute Disease Active 2018-05 [facility] cystitis cystitis 2-15 st with with 00:00: Hospita hematuria hematuria 00 l Acute Acute Disease Active 2018-05 [facility] prostatiti prostatiti 2-15 st s with s with 00:00: Hospita hematuria hematuria 00 l Encounter Encounter Disease Active 2018-05 Met [facility]odi for Rodriguez for Rodriguez 2-15 st catheter catheter 00:00: Hospit a fitting fitting 00 l and and adjustment adjustment Hematuria Hematuria Disease Active Met [facility] 8 st 00:00: Hospita 00 l BPH with BPH with Disease Active [facility] di urinary urinary 7-11 st obstructio obstructio 00:00: Ho spita n n 00 l BPH with BPH with Disease Active [facility] di obstructio obstructio 7-02 st n/lower n/lower 00:00: Hospita urinary urinary 00 l tract tract symptoms symptoms Malignant Malignant Disease Active Met [facility] neoplasm neoplasm 7-02 st of of 00:00: Hospita prostate prostate 00 l Bilateral Bilateral Disease Active [facility] carotid carotid 6-18 st artery artery 00:00: Hospita stenosis stenosis 00 l Coronary Coronary Disease Active Overview: Hi thodi artery artery 1-[address] disease disease 00:00: g of this Hospi ta involving involving 00 note l elem elem might be coronary coronary different artery artery from the original. Added automatic ally from request for surgery [id number] Abnormal Abnormal Disease Active [facility] stress stress 1-15 st test test 00:00: Hospita 00 l Angina Angina Disease Active [facility] pectoris pectoris 1-15 st 00:00: Hospita 00 l CAD in CAD in Disease Active 2017-05 Method[facility] elem elem 2-11 st artery artery 00:00: Hospita 00 l Abnormal Abnormal Disease Active 2017-05 [facility] di EKG EKG 2-11 st 00:00: Hospita 00 l History of History of Disease Active 2017-05 M ethodi coronary coronary 2-11 st artery artery 00:00: Hospita bypass bypass 00 l graft graft Left hip Left hip Disease Active [facility] di pain pain 1-16 st 00:00: Hospita 00 l PAD PAD Disease Active 2016-05 [facility] (periphera (periphera 2-12 st l artery l artery 00:00: Hospit a disease) disease) 00 l AAA AAA Disease Active Method[facility] (abdominal (abdominal 3-14 st aortic aortic 00:00: Hospita aneurysm) aneurysm) 00 l without without rupture rupture Bilateral Bilateral Disease Active Met [facility] carotid carotid 3-14 st bruits bruits 00:00: Hospita 00 l Hyperlipid Hyperlipid Disease Active M ethodi emia emia 3-14 st 00:00: Hospita 00 l Peripheral Peripheral Disease Active M ethodi vascular vascular 8-12 st disease, disease, 00:00: Hospit a unspecifie unspecifie 00 l d d Coronary Coronary Disease Active Meth[facility] di artery artery 7-21 st disease disease 00:00: Hospita involving involving 00 l elem elem coronary coronary artery artery without without angina angina pectoris pectoris Essential Essential Disease Active Met [facility] hypertensi hypertensi 2-12 st on on 00:00: Hospita 00 l S/P S/P Disease Active Methodi coronary coronary 2-12 st artery artery 00:00: Hospita bypass bypass 00 l graft x 3 graft x 3 Fracture Problem Active 2013-06-05 [facility]ria Of The 16:18:01 l Calcaneus Fracture Her [facility]ph[facility] Calcaneus Active [facility] Pelvic Problem Active 2013-06-05 Memor ia Fracture 16:18:01 l Pelvic [place] Fracture Active 4 [facility] Closed Problem Active 2013-06-05 Memor ia Fracture 16:18:01 l Of The Closed [place] Acetabulum Fracture Of The Acetabulum Active 06/05/2013 [facility] Bilateral Bilateral Disease Active Met hodi carpal carpal st tunnel tunnel Hospita syndrome syndrome l Cervical Cervical Disease Active Metho di radiculopa radiculopa st thy at C7 thy at C7 Hosp pricilla l 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, syndrome, Hosp pricilla bilateral bilateral l Other Other Disease Active Methodi specified specified st mononeurop mononeurop Ho spita athies of athies of l right right upper limb upper limb Allergies, Adverse Reactions, Alerts Allergy Allergy Status Severity Reaction(s) Onset Inactive Treating Comm ents Source Name Type Date Date Clinician Oxybutyn Propensi Active Hallucinatio Methodi in ty to ns 1-21 st Chloride adverse 00:00: Hospita reaction 00 l s to drug No Known Propensi Active Hallucinatio Methodi Drug ty to ns st Allergie adverse Hospita s reaction l s to drug Family History Family Member Diagnosis Comments Start Date Stop Date Source Natural brother Cancer [facility] Natural father No Known Problems Met [facility] Natural mother Cancer [facility] Social History Social Habit Start Date Stop Date Quantity Comments Source History of tobacco Cigarette Smoker [facility] Exposure to Not sure [facility] SARS-CoV-2 (event) Hospit al Alcohol intake 2021-06-21 2021-06-21 Current [facility] 00:00:00 00:00:00 non-drinker of Hospital alcohol (finding) Cigarettes smoked 2018-07-03 2018-07-[address] current (pack per 00:00:00 00:00:00 Hospita l day) - Reported Cigarette 2018-07-03 2018-07-03 [facility] pack-years 00:00:00 00:00:00 Hospital Tobacco use and 2018-07-03 2018-07-03 Smokeless tobacco [facility] exposure 00:00:00 00:00:00 non-user Hospital Sex Assigned At [birth year] M [facility] 00:00:00 00:00:00 Hospital Smoking Status Start Date Stop Date Source Ex-smoker 2018-07-03 00:00:00 2018-07-03 [facility] Ordered Filled Start Stop Current Ordering Indication Dosage Frequency Signature Comments Components Source Medication Medication Date Date Medication? Clinician (SIG) Name Name citalopram Yes 40mg QD Take 40 mg M ethodi (CeleXA) 40 2-[address] MG tablet 08:04: daily. Hospit a 18 l LACTOBACILL Yes 1{tbl} QD Take 1 Me [facility]odi US 2-[address] RHAMNOSUS 08:04: mouth Hospita GG 18 daily. l (CULTURELLE ORAL) aspirin Yes 81mg QD Take 81 mg Meth zack (ECOTRIN) 2-[address] 81 MG 08:04: daily. Hospita enteric 18 l coated tablet bicalutamid Yes 50mg QD Take 50 mg Methodi e (CASODEX) 2-[address] 50 mg chemo 08:04: daily. Hosp pricilla tablet 18 l losartan Yes TAKE 1 Methodi (COZAAR) 2-03 TABLET(100 st 100 MG 00:00: MG TOTAL) Hospit a tablet 00 BY MOUTH l DAILY citalopram Yes 40mg QD Take 40 mg M ethodi (CeleXA) 40 1-[address] MG tablet 09:24: daily. Hospit a 34 l LACTOBACILL 2021-0 Yes 1{tbl} QD Take 1 Me thodi US 1-[address] RHAMNOSUS 09:24: mouth Hospita GG 34 daily. l (CULTURELLE ORAL) aspirin Yes 81mg QD Take 81 mg Meth zack (ECOTRIN) 06-[address] 81 MG 09:24: daily. Hospita enteric 34 l coated tablet bicalutamid Yes 50mg QD Take 50 mg Methodi e (CASODEX) 06-[address] 50 mg chemo 09:24: daily. Hosp pricilla tablet 34 l traMADoL 2021- No [id number] 50mg Q6H Take 1 Metho di (ULTRAM) 50 06-0931 tablet (50 s t mg tablet 00:00: 05:59 mg total) Ho spita 00 :00 by mouth l every 6 (six) hours as needed for moderate pain for up to 3 days .acute pain. Take after surgery as needed for significan t pain. traMADoL 2021- No [id number] 50mg Q6H Take 1 Metho di (ULTRAM) 50 06-09 tablet (50 s t mg tablet 00:00: 05:59 mg total) Ho spita 00 :00 by mouth l every 6 (six) hours as needed for moderate pain for up to 3 days .acute pain. Take after surgery as needed for significan t pain. metoprolol Yes 50mg QD Take 1 Metho di succinate - tablet (50 st XL 00:00: mg total) Hospita (TOPROL-XL) 00 by mouth l 50 mg 24 hr daily. tablet losartan Yes 100mg QD Take 1 Method i (COZAAR) 06-[address] 100 MG 00:00: (100 mg Hospita tablet 00 total) by l mouth daily. metoprolol Yes 50mg QD Take 1 Metho di succinate -26 tablet (50 st XL 00:00: mg total) Hospita (TOPROL-XL) 00 by mouth l 50 mg 24 hr daily. tablet losartan 2021- No 100mg QD Take 1 Metho di (COZAAR) 06-08-[address] 100 MG 00:00: 00:00 (100 mg Hospita tablet 00 :00 total) by l mouth daily. metoprolol 2021- No 50mg QD Take 1 Meth zack succinate 06-08 tablet (50 st XL 00:00: 00:00 mg total) Hospita (TOPROL-XL) 00 :00 by mouth l 50 mg 24 hr daily. tablet losartan No 100mg QD Take 1 Metho di (COZAAR) 06-[address] 100 MG 00:00: 00:00 (100 mg Hospita tablet 00 :00 total) by l mouth daily. metoprolol No 50mg QD Take 1 Meth zack succinate 06-08 tablet (50 st XL 00:00: 00:00 mg total) Hospita (TOPROL-XL) 00 :00 by mouth l 50 mg 24 hr daily. tablet losartan No 100mg QD Take 1 Metho di (COZAAR) 06-[address] 100 MG 00:00: 00:00 (100 mg Hospita tablet 00 :00 total) by l mouth daily. rosuvastati Yes TAKE 1 Meth zack n (CRESTOR) 1-[address] 40 MG 00:00: MOUTH Hospita tablet 00 DAILY l GENERIC EQUIVALENT FOR CRESTOR rosuvastati Yes TAKE 1 Meth zack n (CRESTOR) 1-[address] 40 MG 00:00: MOUTH Hospita tablet 00 DAILY l GENERIC EQUIVALENT FOR CRESTOR HYDROcodone 2020-05 No [id number] 1{tbl} Q6H Take 1 Methodi -acetaminop -10 06- tablet by st hen (FameBit) 00:00: 05:59 mouth Hosp pricilla 5-325 mg 00 :00 every 6 l per tablet (six) hours as needed for moderate pain for up to 10 days .acute pain. Max Daily Amount: 4 tablets HYDROcodone 2020-05 No [id number] 1{tbl} Q6H Take 1 Methodi -acetaminop 2-28 - tablet by st hen (FameBit) 00:00: 05:59 mouth Hosp pricilla 5-325 mg 00 :00 every 6 l per tablet (six) hours as needed for moderate pain for up to 10 days .acute pain. Max Daily Amount: 4 tablets bicalutamid 2020-05 No 50mg QD Take 50 mg Methodi e (CASODEX) 03-[address] 50 mg chemo 06:13: 00:00 daily. Hos deo tablet 44 :00 l bicalutamid 2020-05- No 50mg QD Take 50 mg Methodi e (CASODEX) 03-[address] 50 mg chemo 06:13: 00:00 daily. Hos deo tablet 44 :00 l bicalutamid 2020-05- No [id number] TAKE 1 Methodi e (CASODEX) 04-[address] 50 mg chemo 00:00: 05:59 MOUTH 2 Ho spita tablet 00 :00 TIMES A l DAY GENERIC EQUIVALENT FOR CASODEX bicalutamid 2020-05 No [id number] TAKE 1 Methodi e (CASODEX) 04-[address] 50 mg chemo 00:00: 05:59 MOUTH 2 Ho spita tablet 00 :00 TIMES A l DAY GENERIC EQUIVALENT FOR CASODEX metoprolol 2020-05- No TAKE 1 Meth zack succinate 006-[address] XL 00:00: 00:00 MOUTH Hospita (TOPROL-XL) 00 :00 DAILY l 50 mg 24 hr tablet losartan 2020-05- No TAKE 1 Method i (COZAAR) 06-[address] 100 MG 00:00: 00:00 MOUTH Hospita tablet 00 :00 DAILY l metoprolol 2020-05- No TAKE 1 Meth zack succinate 006-[address] XL 00:00: 00:00 MOUTH Hospita (TOPROL-XL) 00 :00 DAILY l 50 mg 24 hr tablet losartan 2020-05- No TAKE 1 Method i (COZAAR) 006-[address] 100 MG 00:00: 00:00 MOUTH Hospita tablet 00 :00 DAILY l rosuvastati 2020-05- No TAKE 1 Met hodi n (CRESTOR) 005-[address] 40 MG 00:00: 00:00 MOUTH Hospita tablet 00 :00 DAILY l GENERIC EQUIVALENT FOR CRESTOR rosuvastati 2020-05- No TAKE 1 Met hodi n (CRESTOR) 0- TABLET BY st 40 MG 00:00: 00:00 MOUTH Hospita tablet 00 :00 DAILY l GENERIC EQUIVALENT FOR CRESTOR ezetimibe Yes TAKE 1 Method i (ZETIA) 10 7-[address] mg tablet 00:00: MOUTH Hospita 00 DAILY l GENERIC EQUIVALENT FOR ZETIA ezetimibe Yes TAKE 1 Method i (ZETIA) 10 7-[address] mg tablet 00:00: MOUTH Hospita 00 DAILY l GENERIC EQUIVALENT FOR ZETIA metoprolol 2020- No TAKE 1 Meth zack succinate 6-22 10-[address] XL 00:00: 00:00 MOUTH Hospita (TOPROL-XL) 00 :00 DAILY l 50 mg 24 hr tablet metoprolol 2020- No TAKE 1 Meth zack succinate 6-22 10-[address] XL 00:00: 00:00 MOUTH Hospita (TOPROL-XL) 00 :00 DAILY l 50 mg 24 hr tablet losartan 2020- No TAKE 1 Method i (COZAAR) 10-20 10-[address] 100 MG 00:00: 00:00 MOUTH Hospita tablet 00 :00 DAILY l losartan 2020- No TAKE 1 Method i (COZAAR) 10-20 10-[address] 100 MG 00:00: 00:00 MOUTH Hospita tablet 00 :00 DAILY l amLODIPine 2021- No [id number] 5mg Q.5D Take 1 Methodi (NORVASC) 5 09-21- tablet (5 st mg tablet 00:00: 00:00 mg total) Ho spita 00 :00 by mouth 2 l (two) times a day. amLODIPine 2021- No [id number] 5mg Q.5D Take 1 Methodi (NORVASC) 5 -03 14- tablet (5 st mg tablet 00:00: 00:00 mg total) Ho spita 00 :00 by mouth 2 l (two) times a day. rosuvastati 2020- No 40mg QD Take 1 Met hodi n (CRESTOR) - 10-11 tablet (40 s t 40 MG 00:00: 00:00 mg total) Hospit a tablet 00 :00 by mouth l daily. rosuvastati 2020- No 40mg QD Take 1 Met hodi n (CRESTOR) 4-05 10- tablet (40 s t 40 MG 00:00: 00:00 mg total) Hospit a tablet 00 :00 by mouth l daily. metoprolol No 50mg QD Take 1 Meth zack succinate 08-06- tablet (50 st XL 00:00: 00:00 mg total) Hospita (TOPROL-XL) 00 :00 by mouth l 50 mg 24 hr daily. tablet metoprolol 2020- No 50mg QD Take 1 Meth zack succinate 08-06- tablet (50 st XL 00:00: 00:00 mg total) Hospita (TOPROL-XL) 00 :00 by mouth l 50 mg 24 hr daily. tablet losartan No 100mg QD Take 1 Metho di (Cozaar) 08-05- tablet st 100 MG 00:00: 00:00 (100 mg Hospita tablet 00 :00 total) by l mouth daily. losartan No 100mg QD Take 1 Metho di (Cozaar) 08-05- tablet st 100 MG 00:00: 00:00 (100 mg Hospita tablet 00 :00 total) by l mouth daily. metoprolol No 100mg QD Take 1 Met hodi succinate 07-[address] XL 00:00: 00:00 (100 mg Hospita (TOPROL-XL) 00 :00 total) by l 100 mg 24 mouth hr tablet daily. metoprolol No 100mg QD Take 1 Met hodi succinate 07-[address] XL 00:00: 00:00 (100 mg Hospita (TOPROL-XL) 00 :00 total) by l 100 mg 24 mouth hr tablet daily. meloxicam 2020- No 15mg QD Take 15 mg M ethodi (MOBIC) 15 2-16 02-[address] mg tablet 14:25: 00:00 daily. Hospi ta 55 :00 l meloxicam 2020- No 15mg QD Take 15 mg M ethodi (MOBIC) 15 2-16 02-[address] mg tablet 14:25: 00:00 daily. Hospi ta 55 :00 l amLODIPine No [id number] 5mg Q.5D Take 1 Methodi (NORVASC) 5 2-16 05-11 tablet (5 st mg tablet 00:00: 00:00 mg total) Ho spita 00 :00 by mouth 2 l (two) times a day. amLODIPine No [id number] 5mg Q.5D Take 1 Methodi (NORVASC) 5 2-16 05-11 tablet (5 st mg tablet 00:00: 00:00 mg total) Ho spita 00 :00 by mouth 2 l (two) times a day. rosuvastati 2020- No TAKE 1 Met hodi n (CRESTOR) 1-15 04-[address] 40 MG 00:00: 00:00 MOUTH Hospita tablet 00 :00 DAILY l GENERIC EQUIVALENT FOR CRESTOR rosuvastati 2020- No TAKE 1 Met hodi n (CRESTOR) 1-15 04-[address] 40 MG 00:00: 00:00 MOUTH Hospita tablet 00 :00 DAILY l GENERIC EQUIVALENT FOR CRESTOR clopidogreL Yes 75mg QD Take 1 Meth zack (Plavix) 75 1-05 tablet (75 st mg tablet 00:00: mg total) Hos deo 00 by mouth l daily. clopidogreL Yes 75mg QD Take 1 Meth zack (Plavix) 75 1-05 tablet (75 st mg tablet 00:00: mg total) Hos deo 00 by mouth l daily. losartan No 100mg QD Take 1 Metho di (Cozaar) 1-05 03-[address] 100 MG 00:00: 00:00 (100 mg Hospita tablet 00 :00 total) by l mouth daily. losartan No 100mg QD Take 1 Metho di (Cozaar) 1-05 03-[address] 100 MG 00:00: 00:00 (100 mg Hospita tablet 00 :00 total) by l mouth daily. bicalutamid 2019-05 50mg Q.5D Take 1 Met hodi e (CASODEX) 06-01-18 tablet (50 s t 50 mg chemo 00:00: 05:59 mg total) Hospita tablet 00 :00 by mouth 2 l (two) times a day for 90 days. bicalutamid 2019-05 No 50mg Q.5D Take 1 Met hodi e (CASODEX) 06-01- tablet (50 s t 50 mg chemo 00:00: 05:59 mg total) Hospita tablet 00 :00 by mouth 2 l (two) times a day for 90 days. ezetimibe No 10mg QD Take 1 Metho di (ZETIA) 10 01-14-14 tablet (10 st mg tablet 00:00: 00:00 mg total) Ho spita 00 :00 by mouth l daily. ezetimibe No 10mg QD Take 1 Metho di (ZETIA) 10 01-14-14 tablet (10 st mg tablet 00:00: 00:00 mg total) Ho spita 00 :00 by mouth l daily. amLODIPine 2020- No [id number] 10mg Q.5D Take 1 Methodi (NORVASC) 12-29-16 tablet (10 st 10 mg 00:00: 00:00 mg total) Hospit a tablet 00 :00 by mouth 2 l (two) times a day. amLODIPine 2020- No [id number] 10mg Q.5D Take 1 Methodi (NORVASC) 12-29-16 tablet (10 st 10 mg 00:00: 00:00 mg total) Hospit a tablet 00 :00 by mouth 2 l (two) times a day. metoprolol No 100mg QD Take 1 Met hodi succinate 09-29-[address] XL 00:00: 00:00 (100 mg Hospita (TOPROL-XL) 00 :00 total) by l 100 mg 24 mouth hr tablet daily. metoprolol No 100mg QD Take 1 Met hodi succinate 09-29-[address] XL 00:00: 00:00 (100 mg Hospita (TOPROL-XL) 00 :00 total) by l 100 mg 24 mouth hr tablet daily. cefTRIAXone Yes [id number] 1g M ethodi (ROCEPHIN) 09-28 st injection 1 14:00: Hospit a g 00 l cefTRIAXone Yes [id number] 1g M ethodi (ROCEPHIN) 09-28 st injection 1 14:00: Hospit a g 00 l No Active Yes No Active Mem oria Medications - Medication l 16:18: s Dawson No Active Yes No Active Mem oria Medications - Medication l 16:18: s Bledso[place] 01 Immunizations Ordered Immunization Filled Immunization Date Status Commen ts Source Name Name FLUCELVAX QUAD PF 2021-04-[address] 00[facility]00:00 [facility] FLUCELVAX QUAD PF 2021-04-[address] 00:00:00 [facility]19 2021-01-14 Completed Methodis t MRNA VACCINATION 00:00:00 [place] [id number] 2021-01-14 Completed Methodis t MRNA VACCINATION 00:00:00 [place] [id number] 2020-06-15 Completed Methodis t MRNA VACCINATION 00:00:00 [place] [id number] 2020-06-15 Completed Methodis t MRNA VACCINATION 00:00:00 [place] [id number] 2020-05-18 Completed Methodis t MRNA VACCINATION 00:00:00 [place] [id number] 2020-05-18 Completed Methodis t MRNA VACCINATION 00:00:00 [facility] FLUCELVAX QUAD PF 2020-02-[address] 00:00:00 [facility] FLUZONE HIGH-DOSE PF 2020-02-13 Completed Meth odist 00:00:00 [facility] FLUCELVAX QUAD PF 2020-02-[address] 00:00:00 [facility] FLUZONE HIGH-DOSE PF 2020-02-13 Completed Meth odist 00:00:00 Hospital FLUZONE QUAD 2019-03-05 Completed [facility] Pneumococcal 2019-03-05 Completed [facility] Conjugate 13-Valent 00:00:00 Hospi suzanne FLUZONE QUAD 2019-03-05 Completed [facility] 00:[facility]:00 Hospital Pneumococcal 2019-03-05 Completed [facility] Conjugate 13-Valent 00:00:00 Hospi suzanne Vital Signs Vital Name Observation Time Observation Value Comments Source Systolic blood 2021-06-21 14:03:00 124 mm[Hg] [facility] pressure Diastolic blood 2021-06-21 14:03:00 58 mm[Hg] [facility] pressure Heart rate 2021-06-21 14:03:00 63 /min [facility] Body height 2021-06-21 14:03:00 180.3 cm [facility] Body weight 2021-06-21 14:03:00 72.576 kg [facility] BMI 2021-06-21 14:03:00 22.32 kg/m2 [facility] Systolic blood 2021-06-10 15:02:00 134 mm[Hg] [facility] pressure Diastolic blood 2021-06-10 15:02:00 59 mm[Hg] [facility] pressure Heart rate 2021-06-10 15:02:00 65 /min [facility] Body temperature 2021-06-10 15:02:00 36.39 [facility] Respiratory rate 2021-06-10 15:02:00 16 /min [facility] Oxygen saturation in 2021-06-10 15:02:00 99 /min [facility] Arterial blood by Pulse oximetry Body height 2021-06-10 13:15:00 180.3 cm [facility] Body weight 2021-06-10 13:15:00 72.802 kg [facility] BMI 2021-06-10 13:15:00 22.39 kg/m2 [facility] Procedures Procedure Date / Time Performing Clinician Source Performed ECG 12-LEAD 2021-06-21 14:06:38 Manny Du [facility] SURGICAL PATHOLOGY REQUEST 2021-06-10 15:03:00 Bertha Justice [facility] RELEASE, CARPAL TUNNEL 2021-06-10 14:14:00 Bertha Justice [facility] XR HAND 3+ VW RIGHT 2021-06-02 [facility]:05[facility] INJECT CARPAL TUNNEL 2021-05-19 14:21:52 Bertha Justice [facility] EMG 2021-05-17 18:36:56 Milton Mireles [facility] MRI WRIST WO CONTRAST RIGHT 2021-05-17 17:40:00 Milton Mireles [facility] XR HANDS 3 VW BILATERAL 2021-04-20 20:14:33 Susan Angel [facility] DOUBLE-STRANDED DNA (DSDNA) 2021-04-20 18:25:00 Ali, [facility] ANTIBODIES, CRITHIDIA CBC WITH PLATELET AND 2021-04-20 18:25:00 Ali, [facility] DIFFERENTIAL COMPREHENSIVE METABOLIC 2021-04-20 18:25:00 Ali, [facility] PANEL C-REACTIVE PROTEIN 2021-04-20 18:25:00 Ali, [facility] C4 COMPLEMENT COMPONENT 2021-04-20 18:25:00 Ali, [facility] SEDIMENTATION RATE 2021-04-20 18:25:00 Ali, [facility] URINE PROTEIN/CREATININE 2021-04-20 18:25:00 Ali, [facility] RATIO, RANDOM URINALYSIS, AUTOMATED WITH 2021-04-20 18:25:00 [facility], [facility] MICROSCOPY US CAROTID DUPLEX BILATERAL 2020-12-28 17:38:12 [facility] US ABDOMINAL AORTA 2020-11-29 13:52:35 [facility] DAO IFA, W/REFL TO 2020-10-05 14:46:00 Ali, [facility] TITER/PATTERN/CASCADE RIBONUCLEOPROTEIN ANTIBODY 2020-10-05 14:46:00 Ali, [facility] (TRANSPORTATION ATTENDANT ANTIBODY) BETA-2 GLYCOPROTEIN 1 2020-10-05 14:46:00 Ali, [facility] ANTIBODIES (IGG, IGA, IGM) C4 COMPLEMENT COMPONENT 2020-10-05 14:46:00 Ali, [facility] CARDIOLIPIN ANTIBODIES 2020-10-05 14:46:00 Ali, [facility] CBC WITH PLATELET AND 2020-10-05 14:46:00 Ali, [facility] DIFFERENTIAL COMPLEMENT ACTIVITY, TOTAL 2020-10-05 14:46:00 Ali, [facility] COMPREHENSIVE METABOLIC 2020-10-05 14:46:00 Ali, [facility] PANEL C-REACTIVE PROTEIN 2020-10-05 14:46:00 Ali, [facility] CYCLIC CITRULLINATED 2020-10-05 14:46:00 Ali, [facility] PEPTIDE AB, IGG DIRECT ANTIGLOBULIN TEST 2020-10-05 14:46[facility] DOUBLE-STRANDED DNA (DSDNA) 2020-10-05 14:46:00 [facility] ANTIBODIES, IMMUNOASSAY LUPUS ANTICOAGULANT PANEL 2020-10-05 14:46:00 [facility] RHEUMATOID FACTOR 2020-10-05 14:46:00 [facility] SEDIMENTATION RATE 2020-10-05 14:46:00 [facility] URINE PROTEIN/CREATININE 2020-10-05 14:46:00 [facility] RATIO, RANDOM URINALYSIS, AUTOMATED WITH 2020-10-05 14:46:00 [facility] MICROSCOPY VITAMIN D 25 HYDROXY LEVEL 2020-10-05 14:46:00 [facility] TSH REFLEX TO T4F 2020-10-05 14:46:00 [facility] ANCA SCREEN WITH MPO AND 2020-10-05 14:46:00 [facility] PR3, WITH REFLEX TO ANCA TITER CREATINE KINASE, TOTAL 2020-10-05 14:46:00 [facility] ([place]) ALDOLASE, SERUM 2020-10-05 14:46:00 [facility] spital ANTINUCLEAR ANTIBODIES 2020-10-05 14:46:00 [facility] TITER AND PATTERN STAGE 1 2020-10-05 14:46:00 [facility] spital INTERPRETATION 2020-10-05 14:46:00 [facility] AND FREE 2020-10-04 13:40:00 Moustapha Garcia [facility] MRI BRAIN WO CONTRAST 2020-09-06 16:34:13 Andreea [facility] Claudia EMG 2020-09-03 15:38:21 Omaira Castillo ospital Claudia CBC WITH PLATELET AND 2020-08-26 19:09:00 Andreea [facility] DIFFERENTIAL Claudia COMPREHENSIVE METABOLIC 2020-08-26 19:09:00 Omaira Castillo [facility] PANEL Claudia IMMUNOFIXATION, SERUM 2020-08-26 19:09:00 [facility] Claudia METHYLMALONIC ACID, SERUM 2020-08-26 19:09:00 [facility] Claudia VITAMIN B1 LEVEL 2020-08-26 19:09:00 [facility] Claudia VITAMIN B12 LEVEL 2020-08-26 19:09:00 [facility] Claudia VITAMIN E 2020-08-26 19:09:00 [facility] ospital Claudia DAO SCREEN W IFA W REFLEX 2020-08-26 19:09:00 [facility] TO TITER Claudia Plan of Care Planned Activity Planned Date Details Comments Source Future Scheduled 2021-06-22 SHINGLES VACCINES (#1) [facility] Test 19:34:39 [code = SHINGLES VACCINES (#1)] Future Scheduled 2021-06-22 65+ PNEUMOCOCCAL [facility] Test 19:34:39 VACCINE (2 of 4 - PPSV23) [code = 65+ PNEUMOCOCCAL VACCINE (2 of 4 - PPSV23)] Future Scheduled 2021-06-13 SHINGLES VACCINES (#1) [facility] Test 22:18:48 [code = SHINGLES VACCINES (#1)] Future Scheduled 2021-06-13 65+ PNEUMOCOCCAL [facility] Test 22:18:48 VACCINE (2 of 4 - PPSV23) [code = 65+ PNEUMOCOCCAL VACCINE (2 of 4 - PPSV23)] Future Scheduled [U] XR CALCANEUS Memoria l Dawson Test (HEEL) 2 VWS, MIN. RIGHT 72055 12/12/2012 Routine[U] XRAY PELVIS MIN 3 VWS 78515 12/12/2012 Routine [code = [U] XR CALCANEUS (HEEL) 2 VWS, MIN. RIGHT 37372 12/12/2012 Routine[U] XRAY PELVIS MIN 3 VWS 38386 12/12/2012 Routine] Future Scheduled [U] XR CALCANEUS Memoria l Bledsoe Test (HEEL) 2 VWS, MIN. RIGHT 81965 12/12/2012 Routine[U] XRAY PELVIS MIN 3 VWS 49665 12/12/2012 Routine [code = [U] XR CALCANEUS (HEEL) 2 VWS, MIN. RIGHT 55379 12/12/2012 Routine[U] XRAY PELVIS MIN 3 VWS 00477 12/12/2012 Routine] Encounters Start End Encounter Admission Attending Care Care Encounter Source Date/Time Date/Time Type Type Clinicians Facility Department ID 2021-06-08 Outpatient Ayala, STLMLC STLMLC [id number] Common 14:24:12 [facility] [address] [facility] 2021-06-08 Outpatient Ayala, STLMLC STLMLC [id number] Common 13:20:23 [facility] [address] [facility] 2021-06-08 Outpatient Ayala, STLMLC STLMLC [id number] Common 13:16:53 [facility] [address] [facility] 2021-10-05 2021-10-05 ambulatory STLMLC STLMLC [id number] Common 00:00:00 00:00:00 [facility] 2021-10-04 2021-10-04 Outpatient ANA LAURA [facility] [id number] 692 [place] 00:00:00 00:00:00 MANNY 362 Method i 2021-09-19 2021-09-19 ambulatory STLMLC STLMLC [id number] Common 00:00:00 00:00:00 [facility] 2021-09-13 2021-09-13 Outpatient JOSE [facility] [id number] [place] 00:00:00 00:00:00 MOUSTAPHA [address] 2021-09-12 2021-09-12 ambulatory STLMLC STLMLC [id number] Common 00:00:00 00:00:00 [facility] 2021-06-28 2021-06-28 Outpatient SIFF, BERTHA [facility] 2100 [id number] [place] 00:00:00 00:00:[address] 2021-06-21 2021-06-21 Office Ana Laura 1.2.840.1 [id number] 8573 Methodi 07:51:10 12:33:18 Visit Manny Jim 84785.1.[address] 3.430.2.7 Hospit a .3.827761 l .8 2021-06-21 2021-06-21 Travel 1.2.840.1 1.2.627.904 5785 627423 Methodi 00:00:00 00:00:[address] 3.430.2.7 0.2.7.3.698 Ho spita .3.596324 084.8 l .8 2021-06-16 2021-06-16 Refill Ana Laura 1.2.840.1 [id number] 7409 Methodi 00:00:00 00:00:[address] 3.430.2.7 Hospit a .3.140894 l .8 2021-06-10 2021-06-10 Surgery JackelineBertha marcano 1.2.840.1 [id number] 086 [id number] Methodi 09:00:00 09:40:[address] 3.430.2.7 Hospit a .3.736036 l .8 2021-06-10 2021-06-10 Anesthesia Suyapa Day 1.2.840.1 [id number] Methodi 08:14:00 08:38:00 Event Rj Yoder 42452.1.[address] 3.430.2.7 Hospit a .3.443401 l .8 2021-06-10 2021-06-10 [facility] BERTHA JUSTICE [facility] [id number] [place] 00:00:00 00:00:00 Encounter [address] 2021-06-08 2021-06-08 Refill Janiya 1.2.840.1 [id number] 075 [id number] Methodi 00:00:00 00:00:[address] 3.430.2.7 Hospit a .3.491283 l .8 2021-06-08 2021-06-08 Refill Ana Laura 1.2.840.1 [id number] 8273 Methodi 00:00:00 00:00:[address] 3.430.2.7 Hospit a .3.417007 l .8 2021-06-02 2021-06-02 Office Bertha Justice 1.2.840.1 [id number] 332 [id number] Methodi 09:41:51 12:05:[address] 35450[address]1.[address] 3.430.2.7 Hospit a .3.564764 l .8 2021-06-02 2021-06-02 Outpatient BERTHA JUSTICE [facility] 2100 [id number] [place] 00:00:00 00:00:[address] 2021-06-02 2021-06-02 Prep for Titus, 1.2.840.1 [id number] 82517 72666 Methodi 00:00:00 00:00:00 Surgery Mahi 51469.1.[address] 3.430.2.7 Hospit a .3.233728 l .8 2021-06-02 2021-06-02 Documentat Charlie, 1.2.840.1 [id number] 21 [id number] Methodi 00:00:00 00:00:00 ion Wanda 54201.1.[address] 3.430.2.7 Hospit a .3.605734 l .8 2021-06-02 2021-06-02 Travel 1.2.840.1 1.2.075.872 2753 501904 Methodi 00:00:00 00:00:[address] 3.430.2.7 0.2.7.3.698 spita .3.951528 084.8 l .8 2021-06-02 2021-06-02 Outpatient BERTHA JUSTICE [facility] 2100 [id number] [place] 00:00:00 00:00:[address] 2021-05-19 2021-05-19 Office Bertha Justice 1.2.840.1 [id number] 302 [id number] Methodi 08:03:10 08:35:20 Visit ELeta 39683.1.[address] 3.430.2.7 Hospit a .3.127944 l .8 2021-05-19 2021-05-19 Travel 1.2.840.1 1.2.676.518 5211 147913 Methodi 00:00:00 00:00:[address] 3.430.2.7 0.2.7.3.698 Ho spita .3.016904 084.8 l .8 2021-05-17 2021-05-17 Hospital Milton Mireles 1.2.840.1 [id number] 21 [id number] Methodi 09:57:39 23:59:[address] 62029.1.[address] 3.430.2.7 Hospit a .3.271365 l .8 2021-05-17 2021-05-17 [facility] Milton Mireles 1.2.840.1 [id number] 21 [id number] Methodi 09:31:37 09:56:[address] 16726.1.[address] 3.430.2.7 Hospit a .3.195977 l .8 2021-05-17 2021-05-17 Travel 1.2.840.1 1.2.859.978 8201 405183 Methodi 00:00:00 00:00:[address] 3.430.2.7 0.2.7.3.698 Ho spita .3.042297 084.8 l .8 2021-05-17 2021-05-17 Outpatient MILTON MIRELES [facility] 2100 [id number] [place] 00:00:00 00:00:[address] 2021-05-16 2021-05-16 Sridevi Du 1.2.840.1 [id number] 6630 Methodi 00:00:00 00:00:[address] 3.430.2.7 Hospit a .3.149144 l .8 2021-05-10 2021-05-10 Office Bertha Justice 1.2.840.1 [id number] Methodi 09:28:40 10:44:11 Visit Mireles, Milton B. 61336.1.[address] 3.430.2.7 Hospit a .3.693329 l .8 2021-05-10 2021-05-10 Travel 1.2.840.1 1.2.155.727 8138 853072 Methodi 00:00:00 00:00:[address] 3.430.2.7 0.2.7.3.698 Ho spita .3.027229 084.8 l .8 2021-05-03 2021-05-03 Travel 1.2.840.1 1.2.073.036 4426 757522 Methodi 00:00:00 00:00:[address] 3.430.2.7 0.2.7.3.698 Ho spita .3.220002 084.8 l .8 2021-05-03 2021-05-03 ambulatory STLMLC STLMLC [id number] Common 00:00:00 00:00:00 [facility] 2021-04-27 2021-04-27 Orders Susan Angel 1.2.840.1 [id number] 2099 [id number] Methodi 00:00:00 00:00:[address] 3.430.2.7 Hospit a .3.170800 l .8 2021-04-26 2021-04-26 ambulatory STLMLC STLMLC [id number] Common 00:00:00 00:00:00 [facility] 2021-04-20 2021-04-20 Office Susan Angel 1.2.840.1 [id number] 2099 [id number] Methodi 11:14:54 13:12:[address] 3.430.2.7 Hospit a .3.782510 l .8 2021-04-20 2021-04-20 Lab Susan Angel 1.2.840.1 [id number] 2099 406017 Methodi 12:16:49 12:21:[address] 3.430.2.7 Hospit a .3.649318 l .8 2021-04-20 2021-04-20 Travel 1.2.840.1 1.2.999.376 7820 323034 Methodi 00:00:00 00:00:[address] 3.430.2.7 0.2.7.3.698 Ho spita .3.245092 084.8 l .8 2021-04-20 2021-04-20 Outpatient SUSAN ANGEL [facility] [id number] 87980 [place] 00:00:00 00:00:[address] 2021-03-25 2021-03-25 Telephone Peter, 1.2.840.1 [id number] 2099 [id number] Methodi 00:00:00 00:00:[address] 3.430.2.7 Hospit a .3.387183 l .8 2021-03-07 2021-03-07 Refill Ana Laura 1.2.840.1 [id number] [id number] 2071 Methodi 00:00:00 00:00:[address] 3.430.2.7 Hospit a .3.516964 l .8 2021-03-07 2021-03-07 Refill Jose 1.2.840.1 [id number] 141475 3620 Methodi 00:00:00 00:00:00 Moustapha Smith [address]186.1.[address] 3.430.2.7 Hospit a .3.071654 l .8 2021-02-21 2021-02-21 Refill Ana Laura 1.2.840.1 [id number] 763228 9693 Methodi 00:00:00 00:00:[address] 3.430.2.7 Hospit a .3.039682 l .8 2021-01-07 2021-01-07 Outpatient [facility] [id number] Common 00:00:00 00:00:00 [facility] 2021-01-07 2021-01-07 [facility] [id number] Common 00:00:00 00:00:00 [facility] 2020-12-28 2020-12-28 Travel 1.2.840.1 1.2.512.639 3977 903073 Methodi 00:00:00 00:00:[address] 3.430.2.7 0.2.7.3.698 Ho spita .3.495355 084.8 l .8 2020-12-28 2020-12-28 Outpatient ANA LAURA [facility] [id number] 152 [place] 00:00:00 00:00:[address] [facility] 2020-12-21 2020-12-21 Office Ana Laura 1.2.840.1 [id number] 360500 3163 Methodi 12:20:32 16:33:51 Visit Manny Jim 29605.1.[address] 3.430.2.7 Hospit a .3.388682 l .8 2020-12-21 2020-12-21 Outpatient Van_T [facility] 493825- [place] 08:46:00 08:46:00 58154 [facility] 2020-12-21 2020-12-21 Travel 1.2.840.1 1.2.906.434 0746 354568 Methodi 00:00:00 00:00:[address] 3.430.2.7 0.2.7.3.698 Ho spita .3.867794 084.8 l .8 2020-12-21 2020-12-21 Telephone Ricki De La Fuente 1.2.840.1 [id number] 21 [id number] Methodi 00:00:00 00:00:[address] 3.430.2.7 Hospit a .3.889614 l .8 2020-12-20 2020-12-20 Outpatient Van_T [facility] 624850- [place] 09:12:00 09:12:00 91268 [facility] 2020-12-17 2020-12-17 Outpatient Van_T [facility] 218938- [place] 12:36:00 12:36:00 [facility] 2020-12-16 2020-12-16 Outpatient Van_T [facility] [id number]- [place] 10:36:00 10:36:00 [facility] 2020-12-16 2020-12-16 Outpatient Roc Viveros [facility] 83fb [id number] 00:00:00 00:00:00 Albert Valdivia [id number] 2020-12-15 2020-12-15 Outpatient Van_T [facility] 785250- [place] 03:10:00 03:10:00 [facility] 2020-12-10 2020-12-10 Outpatient Van_T [facility] [id number]- [place] 09:51:00 09:51:00 00276 [facility] 2020-12-09 2020-12-09 Outpatient Van_T [facility] [id number]- [place] 01:46:00 01:46:00 19577 [facility] 2020-12-09 2020-12-09 Outpatient Roc Viveros [facility] 8508 [id number] 00:00:00 00:00:00 Albert Valdivia [id number] [id number] 2020-12-09 2020-12-09 Jeffery Du 1.2.840.1 [id number] 2100 [id number] Methodi 00:00:00 00:00:[address] 92274.1.[address] 3.430.2.7 Hospit a .3.756484 l .8 2020-11-29 2020-11-29 Outpatient ANA LAURA [facility] [id number] 983 [place] 00:00:00 00:00:[address] MANNY [address] 2020-11-24 2020-11-24 Refill Ana Laura 1.2.840.1 [id number] 7999 Methodi 00:00:00 00:00:[address] 3.430.2.7 Hospit a .3.778745 l .8 2020-11-17 2020-11-17 Yulisa Denson 1.2.840.1 [id number] 588 [id number] Methodi 00:00:00 00:00:00 Only Rhoda 71195.1.[address] 3.430.2.7 Hospit a .3.457430 l .8 2020-11-09 2020-11-09 Outpatient Van_T [facility] [id number] [place] 03:36:00 03:36:00 05182 [facility] 2020-11-04 2020-11-04 Outpatient Van_T [facility] [id number] [place] 02:39:00 02:39:00 50436 [facility] 2020-11-04 2020-11-04 Outpatient Roc Vivreos [facility] 2533 [id number] 00:00:00 00:00:00 Albert Valdivia [id number] 2020-11-03 2020-11-03 Outpatient Van_T [facility] [id number] [place] 10:05:00 10:05:00 68495 [facility] 2020-11-02 2020-11-02 Outpatient STLMLC STLC [id number] Common 00:00:00 00:00:00 [facility] 2020-11-02 2020-11-02 Sridevi Du 1.2.840.1 [id number] [id number] 7256 Methodi 00:00:00 00:00:[address] 3.430.2.7 Hospit a .3.872701 l .8 2020-11-01 2020-11-01 Outpatient STLMLC ST[facility] [id number] Common 00:00:00 00:00:00 [facility] 2020-10-20 2020-10-20 Sridevi Du 1.2.840.1 [id number] 6104 Methodi 00:00:00 00:00:[address] 3.430.2.7 Hospit a .3.119433 l .8 2020-10-19 2020-10-19 Office Susan Angel 1.2.840.1 [id number] 2100 341484 Methodi 10:25:06 11:05:[address] 3.430.2.7 Hospit a .3.723939 l .8 2020-10-19 2020-10-19 Travel 1.2.840.1 1.2.704.406 5103 207231 Methodi 00:00:00 00:00:[address] 3.430.2.7 0.2.7.3.698 Ho spita .3.503526 084.8 l .8 2020-10-07 2020-10-07 Telephone Todd 1.2.840.1 [id number] 2100 [id number] Methodi 00:00:00 00:00:[address] 3.430.2.7 Hospit a .3.515419 l .8 2020-10-05 2020-10-05 Lab Susan Angel 1.2.840.1 [id number] 2100 296816 Methodi 10:03:48 10:08:[address] 3.430.2.7 Hospit a .3.020023 l .8 2020-10-05 2020-10-05 Office Omaira Castillo 1.2.840. 1 [id number] Methodi 08:42:07 09:42:07 Visit Susan Angel 63736.1.[address] 3.430.2.7 Hospit a .3.942587 l .8 2020-10-04 2020-10-04 Office Jose 1.2.840.1 [id number] 664548 6720 Methodi 07:33:51 07:48:51 Visit Moustapha Smith 62062.1.[address] 3.430.2.7 Hospit a .3.453191 l .8 2020-10-04 2020-10-04 Travel 1.2.840.1 1.2.926.050 2683 182987 Methodi 00:00:00 00:00:[address] 3.430.2.7 0.2.7.3.698 Ho spita .3.649977 084.8 l .8 2020-09-21 2020-09-21 Office Andreea 1.2.840.1 [id number] 98386 25043 Methodi 08:13:45 08:33:45 Visit Omaira 55569.1.[address] Claudia 3.430.2.7 Hospi ta .3.818164 l .8 2020-09-21 2020-09-21 Orders Leisa Ricki 1.2.840.1 [id number] 2099 974786 Methodi 00:00:00 00:00:[address] 3.430.2.7 Hospit a .3.829130 l .8 2020-09-21 2020-09-21 Travel 1.2.840.1 1.2.232.486 9403 357011 Methodi 00:00:00 00:00:[address] 3.430.2.7 0.2.7.3.698 Ho spita .3.753667 084.8 l .8 2020-09-14 2020-09-14 Telephone Miles, 1.2.840.1 [id number] 2099 [id number] Methodi 00:00:00 00:00:00 Moustapha Smith 61606.1.[address] 3.430.2.7 Hospit a .3.437816 l .8 2020-09-06 2020-09-06 [facility] [id number] 5735 [place] 00:00:00 00:00:00 OMAIRA [address] 2020-09-03 2020-09-03 Outpatient [facility] [id number] 0358 [place] 00:00:00 00:00:00 OMAIRA [address] 2020-09-03 2020-09-03 Travel 1.2.840.1 1.2.538.740 9692 130897 Methodi 00:00:00 00:00:[address] 3.430.2.7 0.2.7.3.698 Ho spita .3.062790 084.8 l .8 2020-08-26 2020-08-26 Lab Andreea, 1.2.840.1 [id number] 45708 76571 Methodi 14:20:44 14:25:[address] Claudia 3.430.2.7 Hospi ta .3.031977 l .8 2020-08-26 2020-08-26 Office Andreea, 1.2.840.1 [id number] 48121 Methodi 12:54:06 14:16:01 Visit Omaira 64073.1.[address] Claudia 3.430.2.7 Hospi ta .3.742622 l .8 2020-08-26 2020-08-26 Travel 1.2.840.1 1.2.971.996 3326 330434 Methodi 00:00:00 00:00:[address] 3.430.2.7 0.2.7.3.698 Ho spita .3.333328 084.8 l .8 2020-08-16 2020-08-16 Orders Ricki De La Fuente 1.2.840.1 [id number] 2100 031274 Methodi 00:00:00 00:00:[address] 3.430.2.7 Hospit a .3.299915 l .8 2020-08-06 2020-08-06 Telephone Ricki De La Fuente 1.2.840.1 [id number] Methodi 00:00:00 00:00:[address] 3.430.2.7 Hospit a .3.690147 l .8 2020-08-05 2020-08-05 Orders Ricki De La Fuente 1.2.840.1 [id number] 2099 126737 Methodi 00:00:00 00:00:[address] 3.430.2.7 Hospit a .3.351771 l .8 2020-06-15 2020-07-26 Clinical 1.2.840.1 [id number] 31050 94439 Methodi 08:37:10 14:40:[address] 3.430.2.7 Hospit a .3.558706 l .8 2020-07-26 2020-07-26 Refill Ana Laura 1.2.840.1 [id number] 454174 4022 Methodi 00:00:00 00:00:00 M[address] Jim [address].1.[address] 3.430.2.7 Hospit a .3.589857 l .8 2020-07-26 2020-07-26 Refill Ana Laura 1.2.840.1 [id number] [id number] 7426 Methodi 00:00:00 00:00:[address].1.[address] 3.430.2.7 Hospit a .3.846782 l .8 2020-07-22 2020-07-22 Travel 1.2.840.1 1.2.843.990 5243 139491 Methodi 00:00:00 00:00:[address] 3.430.2.7 0.2.7.3.698 Ho spita .3.155548 084.8 l .8 2020-07-13 2020-07-13 Jeffery Du 1.2.840.1 [id number] 2100 434581 Methodi 00:00:00 00:00:00 M[address] Jim [address]17.1.[address] 3.430.2.7 Hospit a .3.016609 l .8 2020-07-06 2020-07-06 Office [place], 1.2.840.1 [id number] 3045 Methodi 14:40:46 14:55:46 Visit Moustapha Smith 34158.1.[address] 3.430.2.7 Hospit a .3.015297 l .8 2020-07-06 2020-07-06 Travel 1.2.840.1 1.2.440.743 0085 083424 Methodi 00:00:00 00:00:[address] 3.430.2.7 0.2.7.3.698 Ho spita .3.143183 084.8 l .8 2020-06-29 2020-06-29 Telephone Du, 1.2.840.1 [id number] 2099 [id number] Methodi 13:47:06 14:02:06 Lynnette Jim 86335.1.[address] 3.430.2.7 Hospit a .3.348097 l .8 2020-06-29 2020-06-29 Ricki Leyva 1.2.840.1 [id number] 2099 445509 Methodi 00:00:00 00:00:[address] 3.430.2.7 Hospit a .3.282980 l .8 2020-06-21 2020-06-21 Telephone Jose, 1.2.840.1 [id number] 2099 336283 Methodi 00:00:00 00:00:00 Moustapha Smith 61929.1.[address] 3.430.2.7 Hospit a .3.008760 l .8 2020-05-18 2020-05-18 Outpatient [facility] [id number] 997 [place] 00:00:00 00:00:[address] 2020-03-18 2020-03-18 Outpatient 3 [facility] [id number] 12:46:00 12:46:00 [facility] 2020-03-16 2020-03-16 Outpatient GRAY, [facility] [id number] [place] 00:00:00 00:00:00 MOUSTAPHA [address] 2020 2020 Outpatient MILES, [facility] [id number] [place] 00:00:00 00:00:00 MOUSTAPHA [address] 2020-01-26 2020-01-26 Outpatient GRAY, [facility] [id number] [place] 00:00:00 00:00:00 MOUSTAPHA [address] 2020-01-26 2020-01-26 Outpatient MILES, [facility] [id number] [place] 00:00:00 00:00:00 MOU[address]HA [address] 2020-01-01 2020-01-01 Outpatient DU, [facility] [id number] [place] 00:00:00 00:00:00 MANNY [address] 2019-12-30 2019-12-30 Outpatient DU, [facility] [id number] [place] 00:00:00 00:00:00 MANNY [address] 2019-10-07 2019-10-07 Outpatient [facility] [id number] [place] 00:00:00 00:00:[address] 2019-10-02 2019-10-02 Outpatient MILES, [place] [id number] [place] 00:00:00 00:00:00 MOUSTAPHA [address] 2019-09-29 2019-09-29 Outpatient MILES, [facility] [id number] [place] 00:00:00 00:00:00 MOUSTAPHA [address] 2019-09-29 2019-09-29 Outpatient MILES, [facility] [id number] [place] 00:00:00 00:00:00 MOUSTAPHA [address] 2019-09-18 2019-09-18 Outpatient MILES, [facility] [id number] [place] 00:00:00 00:00:00 MOUSTAPHA [address] 2019-09-18 2019-09-18 Outpatient [facility] [id number] [place] 00:00:00 00:00:[address] 2019-08-29 2019-08-29 Outpatient DU, [facility] [id number] [place] 00:00:00 00:00:00 MANNY [address] 2019-08-25 2019-08-25 Outpatient [facility] [id number] [place] 00:00:00 00:00:[address] 2019-07-29 2019-07-29 Outpatient MILES, [facility] [id number] [place] 00:00:00 00:00:00 MOUSTAPHA [address] 2019-07-24 2019-07-24 Outpatient DIMPLE, [facility] [id number] [place] 00:00:00 00:00:00 CHONG [address] 2019-05-30 2019-05-30 Outpatient MILES, [facility] [id number] [place] 00:00:00 00:00:00 MOUSTAPHA [address] 2019-04-27 2019-04-27 Outpatient MATTIE, [facility] [id number] [place] 00:00:00 00:00:00 KOENIG [address] 2019-02-13 2019-02-14 Outpatient ANA LAURA, [facility] [id number] [place] 00:00:00 00:00:00 MANNY [address] 2013-08-06 2013-06-05 FUP, [facility] [id number] [place] 07:40:00 16:18:01 Provider: SAMMIE Lawrence, Status: Pen, Time: 7:40 AM 2013-06-05 2013-06-05 AUDIT [facility] MEGIE [id number] [place] 10:18:01 16:18:01 maria elena Osman 2012-12-07 2012-12-08 AUDIT [facility]IE [id number] [place] 19:04:39 00:04:17 maria elena Osman 2012-10-31 2012-10-05 POP, CRIS WEAVERIE [id number] [place] 09:30:00 15:44:57 Provider: DEONDRE Daigle, Status: Pen, Time: 9:30 AM 2012-10-05 2012-10-05 AUDIT [facility] [id number] [place] 10:45:16 15:44:57 maria elena Osman Results Test Description Test Time Test Comments Results Result Comments Source ECG 12 lead 2021-06-21 20:04:42 Test Item Value Reference Range Interpretation Comme nts Ventricular rate (test code = 253) Atrial rate (test code = 255) [place] interval (test code = 266) QRSD interval (test code = 260) QT interval (test code = 264) QTC interval (test code = 265) P axis 1 (test code = 267) QRS axis 1 (test code = 268) T wave axis (test code = 270) EKG impression (test code = 273) Normal sinus rhythm-Nonspecific ST and T [facility] [id number] 01:20:20 Test Item Value Reference Range Interpretation Comments Case number (test code = [id number]) Surgical pathology See link below for report (test code = PDF Lab Report [id number]) Result status (test code This is Final Report = [id number]) [id number] [facility] [id number] 17:23:00 Test Item Value Reference Interpretation Comments Range Glucose (test code 109 mg/dL 65-99 H Fasting = 2345-7) reference inter [place] For someone wit hout known diabetes, a glucose valuebe tween 100 and 125 mg/ dL is consistent withprediabetes and should be confi rmed with afollow-up test. BUN (test code = 24 mg/dL 12-05 3094-0) Creatinine (test 1.68 mg/dL 0.70-1.11 H For patient s >49 code = 2160-0) years of age, the reference limit for Creatinine is approximately 1 3% higher for peopleidentifie d as -Vivi n. EGFR Non-Afr. See_Comment L [Automated me ssage] Malagasy (test code The syst em which = 2775) generated this result transmit tisha reference range : > OR = 60 mL/min/1.73m2. The reference range was not used to interpret this result as normal/abnormal . EGFR See_Comment L [Automated mes nik] Malagasy (test code The syst em which = 2774) generated this result transmit tisha reference range : > OR = 60 mL/min/1.73m2. The reference range was not used to interpret this result as normal/abnormal . BUN/creatinine See_Comment [Automated m essage] ratio (test code = The syste m which 3097-3) generated this result transmit tisha reference range : 6 - 22 (calc). The reference range was not used to interpret this result as normal/abnormal . Sodium (test code = 137 mmol/L 970-608 1780-2) Potassium (test 4.5 mmol/L 3.5-5.3 code = 2823-3) Chloride (test code 102 mmol/L 98-110 = 2075-0) CO2 (test code = 27 mmol/L 20-32 2027-9) Calcium (test code 9.3 mg/dL 8.6-10.3 = 02922-5) Protein (test code 6.8 g/dL 6.1-8.1 = 2885-2) Albumin, S (test 4.1 g/dL 3.6-5.1 code = 1751-7) Globulin, total See_Comment [Automated message] (test code = [place] 86345-4) generated this result transmit tisha reference range : 1.9 - 3.7 g/dL (eli c). The reference r olivia was not used to interpret this result as normal/abnormal . Albumin/globulin See_Comment [Automated message] ratio (test code = The syste m which 1759-0) generated this result transmit tisha reference range : 1.0 - 2.5 (calc). T he reference range was not used to interpret this result as normal/abnormal . Total bilirubin 0.6 mg/dL 0.2-1.2 (test code = 1974-2) Alkaline 65 U/L 35-144 phosphatase (test code = 6768-6) AST (test code = 22 U/L 10-35 1920-8) ALT (test code = 22 U/L 9-46 1742-6) RAC (test code = Performing RAC) Organization Information: Site ID: RGA Name: [facility] Address: [address] [place] [address] Director: Maxx Mejia Lab Interpretation Abnormal (test code = 19979-9) [facility]-reactive [id number] 17:23:00 Test Item Value Reference Range Interpretation Comments CRP (test code = 0.8 mg/L <8.0 1987-09) RAC (test code = Performing Organization RAC) Information: Site ID: RGA [facility] Address: [address] [place] [address] Director: Maxx Mejia [facility] HospitalC4 complement [id number] 17:23:00 Test Item Value Reference Range Interpretation Comments C4 complement 24 mg/dL Reference Rang e<1 (test code = year: Not 4498-2) established1-14 years: 14-5-80 year s: 15-53> or = 80 years Not established RAC (test code = Performing RAC) Organization Information: Site ID: RGA Name: [facility] Address: [address] [place] [address] Director: [facility] HospitalC3 complement [id number] 17:23:00 Test Item Value Reference Range Interpretation Comments C3 complement 142 mg/dL Reference Rang e<1 (test code = year: Not 4485-9) established1-14 years: 80-74218-47 yea rs: 82-185> or = 80 years No t established RAC (test code = Performing RAC) Organization Information: Site ID: DOT Name: [facility] Address: [address] [place] [address] Director: [place] [facility]Mem[facility] HospitalCBC with platelet and [id number] 17:23:00 Test Item Value Reference Range Interpretation Comments WBC (test code = See_Comment [Automated 6690-2) message] The system which generated this result transmitted reference range : 3.8 - 10.8 Thousand/uL. Th e reference range was not used to interpret this result as normal/abnormal . RBC (test code = See_Comment L [Automated 539-8) message] The system which generated this result transmitted reference range : 4.20 - 5.80 Million/uL. The reference range was not used to interpret this result as normal/abnormal . HGB (test code = 12.8 g/dL 13.2-17.1 L 718-7) HCT (test code = 37.5 % 38.5-50.0 L 4544-3) MCV (test code = 96.6 fL 80.0-100.0 787-2) MCH (test code = 33.0 pg 27.0-33.0 785-6) MCHC (test code = 34.1 g/dL 32.0-36.0 786-4) RDW (test code = 13.2 % 11.0-15.0 788-0) Platelet count (test See_Comment [Autom ated code = 777-3) message] The system which generated this result transmitted reference range : 140 - 400 Thousand/uL. Th e reference range was not used to interpret this result as normal/abnormal . MPV (test code = 11.3 fL 7.5-12.5 776-5) Neutrophils, See_Comment [Automated absolute (test code message] The = 751-8) system which generated this result transmitted reference range : 1,500 - 7,800 cells/uL. The reference range was not used to interpret this result as normal/abnormal . Lymphocytes, See_Comment [Automated absolute (test code message] The = 731-0) system which generated this result transmitted reference range : 850 - 3,900 cells/uL. The reference range was not used to interpret this result as normal/abnormal . Monocytes, absolute See_Comment [Automa tisha (test code = 742-7) message] The system which generated this result transmitted reference range : 200 - 950 cells/uL. The reference range was not used to interpret this result as normal/abnormal . Eosinophils, See_Comment [Automated absolute (test code message] The = 711-2) system which generated this result transmitted reference range : 15 - 500 cells/uL. The reference range was not used to interpret this result as normal/abnormal . Basophils, absolute See_Comment [Automa tisha (test code = 704-7) message] The system which generated this result transmitted reference range : 0 - 200 cells/u L. The reference range was not used to interpr et this result as normal/abnormal . Neutrophils (test 66.5 % code = 770-8) Lymphocytes (test 18.2 % code = 736-9) Monocytes (test code 11.0 % = 5905-5) Eosinophils (test 4.0 % code = 713-8) Basophils + RC (test 0.3 % code = 706-2) RAC (test code = Performing RAC) Organization Information: Site ID: RGA Name: [facility] Address: [address] [place] [address] Director: Maxx Mejia Lab Interpretation Abnormal (test code = 66579-3) [facility]althed[facility] [id number] 17:23:00 Test Item Value Reference Range Interpretation Comments Sedimentation rate 33 mm/h See_Comment H [Automat ed (test code = 4537-7) message ] The system which generated this result transmitted reference range : < OR = 20. The reference range was not used to interpret this result as normal/abnormal . RAC (test code = Performing RAC) Organization Information: Site ID: ROEL Name: [facility] Address: [address] [place] [address] Director: Maxx Mejia Lab Interpretation Abnormal (test code = 89527-9) [facility] Center[facility]inalysis, automated with [id number] 17:23:00 Test Item Value Reference Range Interpretation Comments Color, UA (test code DARK YELLOW YELLOW = 5778-6) Appearance (test CLEAR CLEAR code = 5767-9) Specific gravity, 1.001-1.035 urine (test code = 5811-5) pH, urine (test code 5.0-8.0 = 5803-2) Glucose, urine (test NEGATIVE NEGATIVE code = 67185-5) Bilirubin, UA (test NEGATIVE NEGATIVE Verified by code = 5770-3) repeat analys is. Ketones, UA (test TRACE NEGATIVE A code = 2514-8) Occult blood, urine NEGATIVE NEGATIVE (test code = 5794-3) Protein, UA (test TRACE NEGATIVE A code = 40577-0) Nitrite, UA (test NEGATIVE NEGATIVE code = 5802-4) Leukocyte esterase, NEGATIVE NEGATIVE UA (test code = 5799-2) WBC, UA (test code = NONE SEEN See_Comment [Autom ated 5821-4) message] The system which generated this result transmitted reference range : < OR = 5 /HPF. The reference range was not used to interpr et this result as normal/abnormal . RBC, UA (test code = NONE SEEN See_Comment [Autom ated 94637-5) message] The system which generated this result transmitted reference range : < OR = 2 /HPF. The reference range was not used to interpr et this result as normal/abnormal . Squamous epithelial 0-5 See_Comment [Automa tisha cells, UA (test code message ] The = 90154-4) system which generated this result transmitted reference range : < OR = 5 /HPF. The reference range was not used to interpr et this result as normal/abnormal . Bacteria, UA (test MANY NONE SEEN /HPF A code = 5769-5) Hyaline casts, UA NONE SEEN NONE SEEN /LPF (test code = 5796-8) Yeast, UA (test code FEW NONE SEEN /HPF A = 5822-2) RAC (test code = Performing RAC) Organization Information: Site ID: RGA Name: [facility] Address: [address] [place] [address] Director: Maxx Mejia Lab Interpretation Abnormal (test code = 07352-0) [facility] HospitalUrine protein/creatinine ratio, [id number] 17:23:00 Test Item Value Reference Range Interpretation Comments Creatinine, urine 204 mg/dL 20-320 (mg/dL) (test code = 2161-8) Protein/Creat Ratio See_Comment H [Automa tisha (test code = 2890-2) message ] The system which generated this result transmitted reference range : 0.022 - 0.128 mg/mg creat. Th e reference range was not used to interpret this result as normal/abnormal . Protein, urine 36 mg/dL 5-25 H random (test code = 2888-6) RAC (test code = Performing RAC) Organization Information: Site ID: RGA Name: [facility] Address: [address] [place] [address] Director: Maxx Mejia Lab Interpretation Abnormal (test code = 77021-8) [facility]-Stranded DNA (dsDNA) antibodies, [id number] 17:23:00 Test Item Value Reference Range Interpretation Comments dsDNA Ab, Crithidia NEGATIVE NEGATIVE ([facility]) (test code = 6457-6) RAC (test code = RAC) Performing Organization Information: Site ID: EZ Name: [facility], Address: [address] [place] [address] Director: Katrin Curran MD,PhD,TYESHA [facility] HospitalComprehensive metabolic [id number] 17:23:00 Test Item Value Reference Interpretation Comments Range Glucose (test code 109 mg/dL 65-99 H Fasting = 2345-7) reference inter [place] For someone wit hout known diabetes, a glucose valuebe tween 100 and 125 mg/ dL is consistent withprediabetes and should be confi rmed with afollow-up test. BUN (test code = 24 mg/dL 7-25 3094-0) Creatinine (test 1.68 mg/dL 0.70-1.11 H For patient s >49 code = 2160-0) years of age, the reference limit for Creatinine is approximately 1 3% higher for peopleidentifie d as -Vivi n. EGFR Non-Afr. See_Comment L [Automated me ssage] Malagasy (test code The syst em which = 4465) generated this result transmit tisha reference range : > OR = 60 mL/min/1.73m2. The reference range was not used to interpret this result as normal/abnormal . EGFR See_Comment L [Automated mes nik] Malagasy (test code The syst em which = 3954) generated this result transmit tisha reference range : > OR = 60 mL/min/1.73m2. The reference range was not used to interpret this result as normal/abnormal . BUN/creatinine See_Comment [Automated m essage] ratio (test code = [employer] which 3097-3) generated this result transmit tisha reference range : 6 - 22 (calc). The reference range was not used to interpret this result as normal/abnormal . Sodium (test code = 137 mmol/L 543-862 4746-2) Potassium (test 4.5 mmol/L 3.5-5.3 code = 2823-3) Chloride (test code 102 mmol/L 98-110 = 2075-0) CO2 (test code = 27 mmol/L 20-32 2027-9) Calcium (test code 9.3 mg/dL 8.6-10.3 = 64526-0) Protein (test code 6.8 g/dL 6.1-8.1 = 2885-2) Albumin, S (test 4.1 g/dL 3.6-5.1 code = 1751-7) Globulin, total See_Comment [Automated message] (test code = The [place] [address]-8) generated this result transmit tisha reference range : 1.9 - 3.7 g/dL (eli c). The reference r olivia was not used to interpret this result as normal/abnormal . Albumin/globulin See_Comment [Automated message] ratio (test code = [employer] which 0509-0) generated this result transmit tisha reference range : 1.0 - 2.5 (calc). T he reference range was not used to interpret this result as normal/abnormal . Total bilirubin 0.6 mg/dL 0.2-1.2 (test code = 1975-2) Alkaline 65 U/L 35-144 phosphatase (test code = 6768-6) AST (test code = 22 U/L 10-35 1920-8) ALT (test code = 22 U/L 9-46 1742-6) RAC (test code = Performing RAC) Organization Information: Site ID: DOT Name: [facility] Address: [address] [place] [address] Director: Maxx Mejia Lab Interpretation Abnormal (test code = 44762-7) [facility]-reactive [id number] 17:23:00 Test Item Value Reference Range Interpretation Comments CRP (test code = 0.8 mg/L <8.0 1987-) RAC (test code = Performing Organization RAC) Information: Site ID: DOT [facility]: [facility] Address: [address] [place] [address] Director: Maxx [place]evall[place]Jason [place] [address] complement [id number] 17:23:00 Test Item Value Reference Range Interpretation Comments C4 complement 24 mg/dL Reference Rang e<1 (test code = year: Not 4498-2) established-14 years: 79 year s: 15-53> or = 80 years Not established RAC (test code = Performing RAC) Organization Information: Site ID: DOT Name: [facility] Address: [address] [place] [address] Director: Maxx CevallosJoseph [place] [id number] complement [id number] 17:23:00 Test Item Value Reference Range Interpretation Comments C3 complement 142 mg/dL Reference Rang e<1 (test code = year: Not 4485-9) established-14 years: [address]-26 yea rs: 82-185> or = 80 years No t established RAC (test code = Performing RAC) Organization Information: Site ID: DOT Name: [facility] Address: [address] [place] [address] Director: [facility]osParma [facility] HospitalC with platelet and [id number] 17:23:00 Test Item Value Reference Range Interpretation Comments WBC (test code = See_Comment [Automated 1612-2) message] The system which generated this result transmitted reference range : 3.8 - 10.8 Thousand/uL. Th e reference range was not used to interpret this result as normal/abnormal . RBC (test code = See_Comment L [Automated 789-8) message] The system which generated this result transmitted reference range : 4.20 - 5.80 Million/uL. The reference range was not used to interpret this result as normal/abnormal . HGB (test code = 12.8 g/dL 13.2-17.1 L 718-7) HCT (test code = 37.5 % 38.5-50.0 L 4544-3) MCV (test code = 96.6 fL 80.0-100.0 787-2) MCH (test code = 33.0 pg 27.0-33.0 785-6) MCHC (test code = 34.1 g/dL 32.0-36.0 786-4) RDW (test code = 13.2 % 11.0-15.0 788-0) Platelet count (test See_Comment [Autom ated code = 777-3) message] The system which generated this result transmitted reference range : 140 - 400 Thousand/uL. Th e reference range was not used to interpret this result as normal/abnormal . MPV (test code = 11.3 fL 7.5-12.5 776-5) Neutrophils, See_Comment [Automated absolute (test code message] The = 751-8) system which generated this result transmitted reference range : 1,500 - 7,800 cells/uL. The reference range was not used to interpret this result as normal/abnormal . Lymphocytes, See_Comment [Automated absolute (test code message] The = 731-0) system which generated this result transmitted reference range : 850 - 3,900 cells/uL. The reference range was not used to interpret this result as normal/abnormal . Monocytes, absolute See_Comment [Automa tisha (test code = 742-7) message] The system which generated this result transmitted reference range : 200 - 950 cells/uL. The reference range was not used to interpret this result as normal/abnormal . Eosinophils, See_Comment [Automated absolute (test code message] The = 711-2) system which generated this result transmitted reference range : 15 - 500 cells/uL. The reference range was not used to interpret this result as normal/abnormal . Basophils, absolute See_Comment [Automa tisha (test code = 704-7) message] The system which generated this result transmitted reference range : 0 - 200 cells/u L. The reference range was not used to interpr et this result as normal/abnormal . Neutrophils (test 66.5 % code = 770-8) Lymphocytes (test 18.2 % code = 736-9) Monocytes (test code 11.0 % = 5905-5) Eosinophils (test 4.0 % code = 713-8) Basophils + RC (test 0.3 % code = 706-2) RAC (test code = Performing RAC) Organization Information: [facility] Name: [facility] Address: [address] [place] [address] Director: Maxx Mejia Lab Interpretation Abnormal (test code = 54758-1) [facility] [id number] 17:23:00 Test Item Value Reference Range Interpretation Comments Sedimentation rate 33 mm/h See_Comment H [Automat ed (test code = 4537-7) message ] The system which generated this result transmitted reference range : < OR = 20. The reference range was not used to interpret this result as normal/abnormal . RAC (test code = Performing RAC) Organization Information: Site ID: A Name: [facility] Address: [address] [place] [address] Director: Maxx Mejia Lab Interpretation Abnormal (test code = 96108-2) [facility] HospitalUrinalysis, automated with [id number] 17:23:00 Test Item Value Reference Range Interpretation Comments Color, UA (test code DARK YELLOW YELLOW = 5778-6) Appearance (test CLEAR CLEAR code = 5767-9) Specific gravity, 1.001-1.035 urine (test code = 5811-5) pH, urine (test code 5.0-8.0 = 5803-2) Glucose, urine (test NEGATIVE NEGATIVE code = 08877-6) Bilirubin, UA (test NEGATIVE NEGATIVE Verified by code = 5770-3) repeat analys is. Ketones, UA (test TRACE NEGATIVE A code = 2514-8) Occult blood, urine NEGATIVE NEGATIVE (test code = 5794-3) Protein, UA (test TRACE NEGATIVE A code = 32945-8) Nitrite, UA (test NEGATIVE NEGATIVE code = 5802-4) Leukocyte esterase, NEGATIVE NEGATIVE UA (test code = 5799-2) WBC, UA (test code = NONE SEEN See_Comment [Autom ated 5821-4) message] The system which generated this result transmitted reference range : < OR = 5 /HPF. The reference range was not used to interpr et this result as normal/abnormal . RBC, UA (test code = NONE SEEN See_Comment [Autom ated 54137-3) message] The system which generated this result transmitted reference range : < OR = 2 /HPF. The reference range was not used to interpr et this result as normal/abnormal . Squamous epithelial 0-5 See_Comment [Automa tisha cells, UA (test code message ] The = 81640-2) system which generated this result transmitted reference range : < OR = 5 /HPF. The reference range was not used to interpr et this result as normal/abnormal . Bacteria, UA (test MANY NONE SEEN /HPF A code = 5769-5) Hyaline casts, UA NONE SEEN NONE SEEN /LPF (test code = 5796-8) Yeast, UA (test code FEW NONE SEEN /HPF A = 5822-2) RAC (test code = Performing RAC) Organization Information: Site ID: RGA Name: [facility] Address: [address] [place] [address] Director: Maxx Mejia Lab Interpretation Abnormal (test code = 38042-3) [facility] protein/creatinine ratio, [id number] 17:23:00 Test Item Value Reference Range Interpretation Comments Creatinine, urine 204 mg/dL 20-320 (mg/dL) (test code = 2161-8) Protein/Creat Ratio See_Comment H [Automa tisha (test code = 2890-2) message ] The system which generated this result transmitted reference range : 0.022 - 0.128 mg/mg creat. Th e reference range was not used to interpret this result as normal/abnormal . Protein, urine 36 mg/dL 5-25 H random (test code = 2888-6) RAC (test code = Performing RAC) Organization Information: Site ID: RGA Name: [facility] Address: [address] [place] [address] Director: Maxx Mejia Lab Interpretation Abnormal (test code = 59131-7) [facility] HospitalDouble-Stranded DNA (dsDNA) antibodies, [id number] 17:23:00 Test Item Value Reference Range Interpretation Comments dsDNA Ab, Crithidia NEGATIVE NEGATIVE ([facility]) (test code = 6457-6) RAC (test code = RAC) Performing Organization Information: Site ID: EZ Name: [facility], Address: [address] [place] [address] Director: Katrin Curran MD,PhD,TYESHA [facility] HospitalCreatine kinase, total (CPK)2020-10-15 09:53:00 Test Item Value Reference Range Interpretation Comments Creatine kinase (test 81 U/L 44-196 code = 2157-6) RAC (test code = RAC) Performing Organization Information: Site ID: RGA [facility]: [facility] Address: [address] [place] [address] Director: Maxx Mejia [facility] HospitalComplement activity, [id number] 09:53:00 Test Item Value Reference Range Interpretation Comments Complement activity, >60 31-60 H total (test code = 4532-8) RAC (test code = RAC) Performing Organization Information: Site ID: EZ Name: [facility], Address: [address] [place] [address] Director: Katrin Curran MD,PhD,TYESHA Lab Interpretation (test Abnormal code = 50004-3) [facility] HospitalRheumatoid [id number] 09:53:00 Test Item Value Reference Range Interpretation Comments Rheumatoid factor <14 See_Comment [Automate d (test code = message] The 48843-9) system which generated this result transmit tisha reference range : <14 IU/mL. The reference range was not used to interpret this result as normal/abnormal . RAC (test code = Performing RAC) Organization Information: Site ID: RGA [facility]: [facility] Address: [address] [place] [address] Director: Maxx Mejia [facility] HospitalCardiolipin lwentwqtfe1204-71-32 09:53:00 Test Item Value Reference Interpretation Comments Range Cardiolipin IgA <11 APL Value (test code = Interpretation 5076-5) ----- < or = 11 Negat marck 12 - 20 Indeterminate 21 - 80 Low to M edium Positive >80 High Positive Cardiolipin IgG <14 GPL Value (test code = Interpretation 3181-5) ----- < or = 14 Negat marck 15 - 20 Indeterminate 21 - 80 Low to M edium Positive >80 High Positive Cardiolipin IgM <12 MPL Value (test code = Interpretation 3182-3) ----- < or = 12 Negat marck 13 - 20 Indeterminate 21 - 80 Low to M edium Positive >80 High Positive The antiphospholipi d antibody syndro me (APS) is a clinical-pathol ogic correlation robbin t includes a clin ical event (e.g. thrombosis, pre gnancy loss, thrombocytopeni a) and persistent posi tive antiphospholipi d antibodies (IgM or IgG MARCELLO >40 MPL /GPL, IgM or IgG anti-o6QMGdutsp odies or a lupus anticoagulant). International consensus guide lines for APS suggest waiting at leas t 12 weeks before retesting to co nfirm antibody persis tence. The Systemic L upus International Collaborating C jcarlos immunological classification criteria for [facility] lupus erythemat osus (SLE) include t esting for isotype IgA , which has yet t o be incorporated in to APS criteria. Low l evel antiphospholipi d antibodies may sometimes be de tected in the setting of infection, drug therapy or agin gLeta CHOWDHURY (test code = Performing RAC) Organization Information: Site ID: IG [facility] Address: [address] [place] [address] Director: Dr. Maxx Mejia [facility] HospitalLupus anticoagulant [id number] 09:53:00 Test Item Value Reference Interpretation Comments Range Lupus anticoagulant SEE NOTE NOT DETECTED A Lupus (test code = Anticoagulant [place] 76529-5) NOT DETECTED. T his interpretation is basedon the following test results: PTT lupus See_Comment For more anticoagulant (test informat ion on this code = 48748-6) test, go to:http://[employer]inder .Is[employer] Networkosti cs.c [email or web address]( This link is being provided for informational/e duca tionalpurposes only.) [Automa tisha message] The sy stem which generated this result transmitted reference range : < OR = 40 seconds . The reference r olivia was not used to interpret this result as normal/abnormal . dRVVT screen (test See_Comment [Automat ed code = 6303-2) message] The system which generated this result transmitted reference range : < OR = 45 seconds . The reference r olivia was not used to interpret this result as normal/abnormal . RAC (test code = Performing RAC) Organization Information: Site ID: EZ Name: [facility], Address: [address] [place] [address] Director: Katrin Curran MD,PhD,TYESHA [facility] HospitalVitamin D 25 hydroxy [id number] 09:53:00 Test Item Value Reference Range Interpretation Comments Vitamin D, 25 ng/mL 30-100 L Vitamin D Statu s 25-hydroxy (test 25-O H code = 1989-3) Vitamin D: Deficiency: <2 0 ng/mLInsufficie nc y: 20 - 29 ng/mLOptimal: > o r = 30 ng/mL For 25-OH Vitamin D testing on patients on D2-supplementat io n and patients for whom quantitation of D2 and D3 fractions is required, the QuestAssureD(TM )2 5-OH VIT D, (D2,D3), LC/MS/ MS is recommended: order code 9288 8 (patients >2yrs).See Note 1 Note 1 For additional information, please refer to http://educatio n. Actimagine/faq/ZLU213 (This link is being provided for informational/e du cational purpos es only.) RAC (test code = Performing RAC) Organization Information: Site ID: RGA Name: [facility] Address: [address] [place] [address] Director: Maxx Mejia Lab Interpretation Abnormal (test code = 94208-9) [facility] HospitalAldolase, [id number] 09:53:00 Test Item Value Reference Range Interpretation Comments Aldolase (test 3.9 U/L See_Comment [Automated code = 1761-6) message] The system which generated this result transmit tisha reference range : < OR = 8.1. The reference range was not used to interpret this result as normal/abnormal . RAC (test code = Performing RAC) Organization Information: Site ID: EZ Name: [facility], Address: [address] [place] [address] Director: Katrin Curran MD,PhD,TYESHA [facility] HospitalCyclic citrullinated peptide antibody, [id number] 09:53:00 Test Item Value Reference Range Interpretation Comments Cyclic citrullin <16 UNITS Reference peptide Ab (test RangeNegati ve: code = 48126-0) <20W eak Positive: 20-39Moderate Positive: 40-59Strong Positive: > 59 RAC (test code = Performing RAC) Organization Information: Site ID: IG [facility]: [facility] Address: [address] [place] [address] Director: Dr. Maxx Mejia [facility] [id number] 09:53:00 Test Item Value Reference Range Interpretation Comments Sjogren's SS-A <1.0 NEG See_Comment [Automated antibody (test message] The code = 47148-7) system which generated this result transmit tisha reference range : <1.0 NEG AI. Th e reference range was not used to interpret this result as normal/abnormal . Sjogren's SS-B <1.0 NEG See_Comment [Automated antibody (test message] The code = 42832-3) system which generated this result transmit tisha reference range : <1.0 NEG AI. Th e reference range was not used to interpret this result as normal/abnormal . RAC (test code = Performing RAC) Organization Information: Site ID: IG [facility]: [facility] Address: [address] [place] [address] Director: Dr. Maxx Mejia [facility] HospitalANTINUCLEAR ANTIBODIES TITER AND [id number] 09:53:00 Test Item Value Reference Interpretation Comments Range DAO titer (test 1:320 titer H code = 5048-4) Reference Ran ge <1:40 Negative 1:40-1:80 Low Antibody Le lillian >1 :80 Elevated Antibody Level DAO pattern (test Nuclear, Speckled A Speck led pattern is code = 91265-5) associated w ith mixed connectivetissu e disease (MCTD), systemic lupus erythematosus(S LE), Sjogren's syndr ome, dermatomyositis , and systemic sclerosis/polym yosit is overlap. AC-2,4,5,29: Speckled International Consensus on AN A Patterns(https: //doi .org/10.1515/cc lm-20 18-0052) RAC (test code = Performing RAC) Organization Information: Site ID: IG Name: [facility] Lab Address: [address] [place] [address] Director: Dr. Maxx Mejia Lab Interpretation Abnormal (test code = 78550-5) [facility] 09:53:00 Test Item Value Reference Interpretation Comments Range dsDNA Ab, IU/mL H Immunoassay (test IU/mL code = 5130-0) Interpretatio n < or = 4 Negative 5-9 Indetermina te > or = 10 Posit marck Mireles antibody <1.0 NEG See_Comment [Automated m essage] (test code = The system [facility] 34577-2) generated this result transmitted ref erence range: <1.0 NEG AI. The reference range was not used to interpr et this result as normal/abnormal . TRANSPORTATION ATTENDANT-SM interp <1.0 NEG See_Comment [Automated me ssage] (test code = The system [facility] 17363-1) generated this result transmitted ref erence range: <1.0 NEG AI. The reference range was not used to interpr et this result as normal/abnormal . Ribonucleic <1.0 NEG See_Comment [Automated mes nik] antibody (TRANSPORTATION ATTENDANT) The system [facility] (test code = generated this result 24166-5) transmitted ref erence range: <1.0 NEG AI. The reference range was not used to interpr et this result as normal/abnormal . CHROMATIN <1.0 NEG See_Comment ANTIBODY PREVA LENCE IN (NUCLEOSOMAL) TIER 1 Suhail ble ANTIBODY (test stranded DNA (dsDNA) code = 59733-7) antibodies a re present in57% to 62% sy stemic lupus erythemat osus (SLE), 10% to43 % polymyositis, 1 1% to 20% Sjogren's s yndrome, 8% systemic scl erosis (scleroderma) a nd 0% to 8% mixedconnect marck tissue disease (MCTD). Chromatin anti body is present in >80% MCTD, 37% to 73% SLE, 14% systemic sclero sis, 12% Sjogren's syndr omeand 8% polymyositis . Ribonucleoprote in (TRANSPORTATION ATTENDANT) antibodies are to TRANSPORTATION ATTENDANT A and/or TRANSPORTATION ATTENDANT 68kD proteins; antib odies to one or both are present in >80% MCTD, 2 2% to 48% SLE, 14% systemicscleros is, 12% Sjogren's and 8 % polymyositis. Sm/TRANSPORTATION ATTENDANT antibodies are directed to epitopes for med vishal complex of Sm a nd TRANSPORTATION ATTENDANT; antibodies to t he Sm/RNPcomplex a re present in 54% to 94% MCTD, 30% SLE, 4%systemic scle rosis, and 9% Sjogren' s and polymyositis. Sm antibody is pre sent in 20% to 30% SLE, 8% MCTD,10% polymy ositis, 0% systemic scl erosis and 4%Sjogren's syndrome. Suhail ble stranded DNA, Chromatin, Ribonucleoprote in, Sm/TRANSPORTATION ATTENDANT complex and Sm antibodies are present in <2% of annmarie l blood donors. The Ca scade does not rule o ut autoimmune diseasecharacte rized by other autoantib ivelisse specificities s uchas rheumatoid arth ritis, autoimmune hepa titis, primarybiliary cirrhosis, auto immune thyroiditis, Underwood'sdiseas e, pernicious anem ia, autoimmune neuropathies,va sculitis , celiac diseas e and bullous disease .Please contact your [facility] laboratoryif yo u are interested in additional test ing. [Automated mess age] The system which ge nerated this result tra nsmitted reference range : <1.0 NEG AI. The ref erence range was not u sed to interpret this result as normal/abnor mal. RAC (test code = Performing RAC) Organization Information: Site ID: IG [facility]: [facility] Address: [address] [place] [address] Director: Dr. Maxx Mejia Lab Interpretation Abnormal (test code = 56014-3) [facility] HospitalRibonucleic antibody (TRANSPORTATION ATTENDANT)2020-10-15 09:53:00 Test Item Value Reference Range Interpretation Comments Ribonucleic <1.0 NEG See_Comment [Automated antibody (TRANSPORTATION ATTENDANT) message] The (test code = system which 71923-0) generated this result transmitted reference range : <1.0 NEG AI. Th e reference range was not used to interpret this result as normal/abnormal . RAC (test code = Performing RAC) Organization Information: Site ID: IG [facility]: [facility] Address: [address] [place] [address] Director: Dr. Maxx Mejia [facility] reflex to [id number] 09:53:00 Test Item Value Reference Range Interpretation Comments TSH reflex to See_Comment [Automated FT4 (test code message] The system = 3016-3) which generated this result transmitted reference range : 0.40 - 4.50 mIU /L. The reference r olivia was not used to interpret this result as normal/abnormal . RAC (test code Performing = RAC) Organization Information: Site ID: RGA [facility]: [facility] Address: [address] [place] [address] Director: Maxx Mejia [facility] IFA, W/REFL TO TITER/PATTERN/[id number] 09:53:00 Test Item Value Reference Interpretation Comments Range DAO Screen (test POSITIVE NEGATIVE A DAO IFA is a first code = 05561-2) line screen for detecting thepr esence of up to approx imately 150 autoantibod ies invarious autoi mmune diseases. A pos itive DAO IFA resulti s suggestive of autoimmune dise ase and reflexes to tit er, pattern and the 3 tiered Multiple x 11 AntibodyCascade . Testing in the [facility] stops at the firstpositive r esult, and does not pr eclude additionalposit marck results. Furthe r laboratory test ing may beconsidered if clinically yamile cated. For additional information, pl ease refer tohttp://educat ion.[facility] stDiagnostics.c om/faq/ BIM352(This diane k is being provided for informational/e ducatio nal purposes on ly.) RAC (test code = Performing RAC) Organization Information: Site ID: IG Name: [facility] Address: [address] [place] [address] Director: Dr. Maxx Mejia Lab Interpretation Abnormal (test code = 42213-0) [facility] with MPO and PR3, with Reflex to ANCA Titer 2020-10-15 09:53:00 Test Item Value Reference Interpretation Comments Range ANCA screen (test NEGATIVE NEGATIVE ANCA Scre en includes code = 21369-8) evaluation f or p-ANCA, c-ANCA andatypical p-A NCA. A positive ANCA s creen reflexes to titerand pat tern(s), e.g., cytoplasmic pat tern (c-ANCA),perinu clear pattern (p-ANCA), or at ypical p-ANCA pattern.c-ANCA and p-ANCA are observed in vas culitis, whereasatypical p-ANCA is observed in IBD (Inflammatory BowelDisease). Atypical p-ANCA is detec tisha in about 55% to 80% ofpa tients with ulcerative coli tis but only 5% to 25% ofpat ients with Crohn's disease . Myeloperoxidase <1.0 See_Commen <1.0 AI No Antibody Ab (test code = t Detected> or = 1.0 AI 26307-5) Antibody Detect ed Autoantibodies to myeloperoxidase (MPO) are commonlyassocia tisha with the following small -vessel vasculitides:mi croscopic polyangiitis, p olyarteritis nodosa,Churg-St rauss syndrome, necro tizing and crescenticglome rulonephritis and occasionall y granulomatosis withpolyangiiti s (GPA, Sandor's). The perinuclear IFA pattern,(p- ANCA) is based largely on auto antibody to myeloperoxidase which serves as the primary antigen. These autoantibodiesa re present in active disease. [Automated message] The sy stem which generated this result transmitted ref erence range: <1.0 AI. The re ference range was not used to interpret this result as normal/abnormal . KY-3 (protease) <1.0 See_Commen <1.0 AI No Antibody (test code = t Detected> or = 1.0 AI 91221-2) Antibody Detect ed Autoantibodies to proteinase-3 (P R-3) are accepted aschar acteristic for granulomatosis with polyangiitis (G PA,Sandor's), and are detecta ble in 95% of the histologica llyproven cases. The cyto plasmic IFA pattern, (c-ANC A), isbased largely on auto antibody to KY-3 which serv es as theprimary anti gen. These autoantibodies are present in activedisease. [Automated message] The sy stem which generated this result transmitted ref erence range: <1.0 AI. The re ference range was not used to interpret this result as normal/abnormal . RAC (test code = Performing RAC) Organization Information: Site ID: EZ Name: [facility], Address: [address] [place] [address] Director: Katrin Curran MD,PhD,TYESHA [facility] Sm/TRANSPORTATION ATTENDANT [id number] 09:53:00 Test Item Value Reference Range Interpretation Comments Mireles antibody <1.0 NEG See_Comment [Automated (test code = message] The 40442-9) system which generated this result transmit tisha reference range : <1.0 NEG AI. Th e reference range was not used to interpret this result as normal/abnormal . TRANSPORTATION ATTENDANT-SM interp <1.0 NEG See_Comment [Automated (test code = message] The 84299-7) system which generated this result transmit tisha reference range : <1.0 NEG AI. Th e reference range was not used to interpret this result as normal/abnormal . RAC (test code = Performing RAC) Organization Information: Site ID: IG Name: [facility] Address: [address] [place] [address], [place] [address] Director: Dr. Maxx Mejia [facility] HospitalBeta-2 glycoprotein 1 antibodies (IgG, IgA, IgM)2020-10-15 09:53:00 Test Item Value Reference Interpretation Comments Range Beta-2 <9 See_Comment [Automated [employer]] The glycoprotein 1 system which generated this antibody, IgG result transmi tted reference (test code = range: < OR = 2 0 SGU. The 14584-4) reference range was not used to interpret th is result as normal/abnormal . Beta-2 <9 See_Comment [Automated [employer]] The glycoprotein 1 system which generated this antibody, IgM result transmi tted reference (test code = range: < OR = 2 0 SMU. The 15290-8) reference range was not used to interpret th is result as normal/abnormal . Beta-2 <9 See_Comment The antiphospho lipid antibody glycoprotein 1 syndrome (APS ) gucci antibody, IgA clinical-patho logic (test code = correlation robbin t includesa 28668-1) clinical event (e.g. thrombosis, pre gnancyloss, thrombocytopeni a) and persistent positiveantipho spholipid antibodies (IgM or IgG MARCELLO>40 MPL/GPL,IgM or IgG anti-b2GPI antibodies ora lupus anticoagulant). International consensusguidel gary for APS suggest waiting at least 12weeks before retesting to confirm antibod ypersistence. The System[facility] llaborating Clinics immunologicalcl assification criteria for [facility] lupuserythemato alfonso (SLE) include testing for isotypeIgA, whi ch has yet to be incorporated into APScriteria. Lo w level antiphospholipi d antibodiesmay s ometimes be detected in the setting ofinfection, dr ug therapy or aging. [Automa tisha message] The system whic h generated this result tra nsmitted reference range : < OR = 20 SHO. The refere nce range was not used to int erpret this result as annmarie l/abnormal. RAC (test code Performing = RAC) Organization Information: Site ID: EZ Name: [facility], Address: [address] [place] [address] Director: Katrin Curran MD,PhD,TYESHA [facility] HospitalDirect antiglobulin test ([place])2020-10-15 09:53:00 Test Item Value Reference Range Interpretation Comments Direct antiglobulin NEGATIVE NEGATIVE test ([place]) (test code = 1007-4) RAC (test code = RAC) Performing Organization Information: Site ID: IG Name: [facility] Address: [address] [place] [address] Director: Dr. Maxx Mejia [facility] HospitalDouble-Stranded DNA (dsDNA) Antibodies, [id number] 09:53:00 Test Item Value Reference Interpretation Comments Range dsDNA Ab, IU/mL H Immunoassay (test IU/ mL code = 5130-0) Interpretatio n < or = 4 Negative 5-9 Indeterminate > or = 10 Positive RAC (test code = Performing RAC) Organization Information: Site ID: IG Name: [facility] Address: [address] [place] [address] Director: Dr. Maxx Mejia Lab Interpretation Abnormal (test code = 17969-6) [facility] HospitalCreatine kinase, total (CPK)2020-10-15 09:53:00 Test Item Value Reference Range Interpretation Comments Creatine kinase (test 81 U/L 44-196 code = 2157-6) RAC (test code = RAC) Performing Organization Information: Site ID: RGA [facility]: [facility] Address: [address] [place] [address] Director: Maxx Mejia [facility] HospitalComplement activity, [id number] 09:53:00 Test Item Value Reference Range Interpretation Comments Complement activity, >60 31-60 H total (test code = 4532-8) RAC (test code = RAC) Performing Organization Information: Site ID: EZ Name: [facility], Address: [address] [place] [address] Director: Katrin Curran MD,PhD,TYESHA Lab Interpretation (test Abnormal code = 92711-8) [facility] HospitalRheumatoid [id number] 09:53:00 Test Item Value Reference Range Interpretation Comments Rheumatoid factor <14 See_Comment [Automate d (test code = message] The 75175-3) system which generated this result transmit tisha reference range : <14 IU/mL. The reference range was not used to interpret this result as normal/abnormal . RAC (test code = Performing RAC) Organization Information: Site ID: RGA [facility]: [facility] Address: [address] [place] [address] Director: [facility]x [facility] HospitalCardiolipin [id number] 09:53:00 Test Item Value Reference Interpretation Comments Range Cardiolipin IgA <11 APL Value (test code = Interpretation 5076-5) ----- < or = 11 Negat marck 12 - 20 Indeterminate 21 - 80 Low to M edium Positive >80 High Positive Cardiolipin IgG <14 GPL Value (test code = Interpretation 3181-5) ----- < or = 14 Negat marck 15 - 20 Indeterminate 21 - 80 Low to M edium Positive >80 High Positive Cardiolipin IgM <12 MPL Value (test code = Interpretation 3182-3) ----- < or = 12 Negat marck 13 - 20 Indeterminate 21 - 80 Low to M edium Positive >80 High Positive The antiphospholipi d antibody syndro me (APS) is a clinical-pathol ogic correlation robbin t includes a clin ical event (e.g. thrombosis, pre gnancy loss, thrombocytopeni a) and persistent posi tive antiphospholipi d antibodies (IgM or IgG MARCELLO >40 MPL /GPL, IgM or IgG anti-j1WARgdgxa odies or a lupus anticoagulant). International consensus guide lines for APS suggest waiting at leas t 12 weeks before retesting to co nfirm antibody persis tence. The Systemic [facility]ating [facility] lintabitha immunological classification criteria for [facility] lupus erythemat osus (SLE) include t esting for isotype IgA , which has yet t o be incorporated in to APS criteria. Low l evel antiphospholipi d antibodies may sometimes be de tected in the setting of infection, drug therapy or agin g. RAC (test code = Performing RAC) Organization Information: Site ID: IG [facility]: [facility] Address: [address] [place] [address] Director: Dr. Maxx Mejia [facility] HospitalLupus anticoagulant [id number] 09:53:00 Test Item Value Reference Interpretation Comments Range Lupus anticoagulant SEE NOTE NOT DETECTED A Lupus (test code = Anticoagulant i s 62245-4) NOT DETECTED. T his interpretation is basedon the following test results: PTT lupus See_Comment For more anticoagulant (test informat ion on this code = 81252-5) test, go to:http://argent[employer]inder .Ref[employer] It .c om/faq/AVO27s4( This link is being provided for informational/e duca tionalpurposes only.) [Automa tisha message] The sy stem which generated this result transmitted reference range : < OR = 40 seconds . The reference r olivia was not used to interpret this result as normal/abnormal . dRVVT screen (test See_Comment [Automat ed code = 6303-2) message] The system which generated this result transmitted reference range : < OR = 45 seconds . The reference r olivia was not used to interpret this result as normal/abnormal . RAC (test code = Performing RAC) Organization Information: Site ID: EZ Name: [facility], Address: [address] [place] [address] Director: Katrin Curran MD,PhD,TYESHA [facility] HospitalVitamin D 25 hydroxy [id number] 09:53:00 Test Item Value Reference Range Interpretation Comments Vitamin D, 25 ng/mL 30-100 L Vitamin D Statu s 25-hydroxy (test 25-O H code = 1989-3) Vitamin D: Deficiency: <2 0 ng/mLInsufficie nc y: 20 - 29 ng/mLOptimal: > o r = 30 ng/mL For 25-OH Vitamin D testing on patients on D2-supplementat io n and patients for whom quantitation of D2 and D3 fractions is required, the QuestAssureD(TM )2 5-OH VIT D, (D2,D3), LC/MS/ MS is recommended: order code 9288 8 (patients >2yrs).See Note 1 Note 1 For additional information, please refer to http://educstella n. Actimagine/faq/SKI203 (This link is being provided for informational/e du cational purpos es only.) RAC (test code = Performing RAC) Organization Information: Site ID: RGA Name: [facility] Address: [address] [place] [address] Director: Maxx Mejia Lab Interpretation Abnormal (test code = 18552-4) [facility] HospitalAldolase, [id number] 09:53:00 Test Item Value Reference Range Interpretation Comments Aldolase (test 3.9 U/L See_Comment [Automated code = 1761-6) message] The system which generated this result transmit tisha reference range : < OR = 8.1. The reference range was not used to interpret this result as normal/abnormal . RAC (test code = Performing RAC) Organization Information: Site ID: EZ Name: [facility], Address: [address] [place] [address] Director: Katrin Curran MD,PhD,TYESHA [facility] HospitalCyclic citrullinated peptide antibody, [id number] 09:53:00 Test Item Value Reference Range Interpretation Comments Cyclic citrullin <16 UNITS Reference peptide Ab (test RangeNegati ve: code = 07276-3) <20W eak Positive: 20-39Moderate Positive: 40-59Strong Positive: > 59 RAC (test code = Performing RAC) Organization Information: Site ID: IG [facility]: [facility] Address: [address] [place] [address] Director: Dr. Maxx Mejia [facility] HospitalSSA/SSB [id number] 09:53:00 Test Item Value Reference Range Interpretation Comments Sjogren's SS-A <1.0 NEG See_Comment [Automated antibody (test message] The code = 30946-6) system which generated this result transmit tisha reference range : <1.0 NEG AI. Th e reference range was not used to interpret this result as normal/abnormal . Sjogren's SS-B <1.0 NEG See_Comment [Automated antibody (test message] The code = 30698-4) system which generated this result transmit tisha reference range : <1.0 NEG AI. Th e reference range was not used to interpret this result as normal/abnormal . RAC (test code = Performing RAC) Organization Information: Site ID: IG Name: [facility] Address: [address] [place] [address] Director: Dr. Maxx Mejia [facility] HospitalANTINUCLEAR ANTIBODIES TITER AND [id number] 09:53:00 Test Item Value Reference Interpretation Comments Range DAO titer (test 1:320 titer H code = 5048-4) Reference Ran ge <1:40 Negative 1:40-1:80 Low Antibody Le lillian >1 :80 Elevated Antibody Level DAO pattern (test Nuclear, Speckled A Speck led pattern is code = 15243-9) associated w ith mixed connectivetissu e disease (MCTD), systemic lupus erythematosus(S LE), Sjogren's syndr ome, dermatomyositis , and systemic sclerosis/polym yosit is overlap. AC-2,4,5,29: Speckled International Consensus on AN A Patterns(https: //doi .org/10.1515/cc lm-20 18-0052) RAC (test code = Performing RAC) Organization Information: Site ID: IG Name: [facility] Address: [address] [place] [address], [place] [address] Director: Dr. Maxx Mejia Lab Interpretation Abnormal (test code = 63672-2) [facility] 09:53:00 Test Item Value Reference Interpretation Comments Range dsDNA Ab, IU/mL H Immunoassay (test IU/mL code = 5130-0) Interpretatio n < or = 4 Negative 5-9 Indetermina te > or = 10 Posit marck Mireles antibody <1.0 NEG See_Comment [Automated m essage] (test code = The system [employer] 97062-4) generated this result transmitted ref erence range: <1.0 NEG AI. The reference range was not used to interpr et this result as normal/abnormal . TRANSPORTATION ATTENDANT-SM interp <1.0 NEG See_Comment [Automated me ssage] (test code = The system [employer] h 04489-2) generated this result transmitted ref erence range: <1.0 NEG AI. The reference range was not used to interpr et this result as normal/abnormal . Ribonucleic <1.0 NEG See_Comment [Automated mes nik] antibody (TRANSPORTATION ATTENDANT) The system [facility] (test code = generated this result 57134-6) transmitted ref erence range: <1.0 NEG AI. The reference range was not used to interpr et this result as normal/abnormal . CHROMATIN <1.0 NEG See_Comment ANTIBODY PREVA LENCE IN (NUCLEOSOMAL) TIER 1 Suhail ble ANTIBODY (test stranded DNA (dsDNA) code = 86139-8) antibodies a re present in57% to 62% sy stemic lupus erythemat osus (SLE), 10% to43 % polymyositis, 1 1% to 20% Sjogren's s yndrome, 8% systemic scl erosis (scleroderma) a nd 0% to 8% mixedconnect marck tissue disease (MCTD). Chromatin anti body is present in >80% MCTD, 37% to 73% SLE, 14% systemic sclero sis, 12% Sjogren's syndr omeand 8% polymyositis . Ribonucleoprote in (TRANSPORTATION ATTENDANT) antibodies are to TRANSPORTATION ATTENDANT A and/or TRANSPORTATION ATTENDANT 68kD proteins; antib odies to one or both are present in >80% MCTD, 2 2% to 48% SLE, 14% systemicscleros is, 12% Sjogren's and 8 % polymyositis. Sm/TRANSPORTATION ATTENDANT antibodies are directed to epitopes for med vishal complex of Sm a nd TRANSPORTATION ATTENDANT; antibodies to t he Sm/RNPcomplex a re present in 54% to 94% MCTD, 30% SLE, 4%systemic scle rosis, and 9% Sjogren' s and polymyositis. Sm antibody is pre sent in 20% to 30% SLE, 8% MCTD,10% polymy ositis, 0% systemic scl erosis and 4%Sjogren's syndrome. Suhail ble stranded DNA, Chromatin, Ribonucleoprote in, Sm/TRANSPORTATION ATTENDANT complex and Sm antibodies are present in <2% of annmarie l blood donors. The Ca scade does not rule o ut autoimmune diseasecharacte rized by other autoantib ivelisse specificities s uchas rheumatoid arth ritis, autoimmune hepa titis, primarybiliary cirrhosis, auto immune thyroiditis, Underwood'sdiseas e, pernicious anem ia, autoimmune neuropathies,va sculitis , celiac diseas e and bullous disease .Please contact your lo eli [facility] laboratoryif yo u are interested in additional test ing. [Automated mess age] The system which ge nerated this result tra nsmitted reference range : <1.0 NEG AI. The ref erence range was not u sed to interpret this result as normal/abnor mal. RAC (test code = Performing RAC) Organization Information: Site ID: IG Name: [facility] Address: [address] [place] [address] Director: Dr. Maxx Mejia Lab Interpretation Abnormal (test code = 79111-7) [facility] HospitalRibonucleic antibody (TRANSPORTATION ATTENDANT)2020-10-15 09:53:00 Test Item Value Reference Range Interpretation Comments Ribonucleic <1.0 NEG See_Comment [Automated antibody (TRANSPORTATION ATTENDANT) message] The (test code = system which 44037-2) generated this result transmitted reference range : <1.0 NEG AI. Th e reference range was not used to interpret this result as normal/abnormal . RAC (test code = Performing RAC) Organization Information: Site ID: IG [facility]: [facility] Address: [address] [place] [phone] Director: Dr. Maxx Jimenez [facility] reflex to [id number] 09:53:00 Test Item Value Reference Range Interpretation Comments TSH reflex to See_Comment [Automated FT4 (test code message] The system = 3016-3) which generated this result transmitted reference range : 0.40 - 4.50 mIU /L. The reference r olivia was not used to interpret this result as normal/abnormal . RAC (test code Performing = RAC) Organization Information: Site ID: RGA [facility]: [facility] Address: [address] [place] [address] Director: Maxx Jimenez [facility] IFA, W/REFL TO TITER/PATTERN/[id number] 09:53:00 Test Item Value Reference Interpretation Comments Range DAO Screen (test POSITIVE NEGATIVE A DAO IFA is a first code = 38269-0) line screen for detecting thepr esence of up to approx imately 150 autoantibod ies invarious autoi mmune diseases. A pos itive DAO IFA resulti s suggestive of autoimmune dise ase and reflexes to tit er, pattern and the 3 tiered Multiple x 11 AntibodyCascade . Testing in the [facility] stops at the firstpositive r esult, and does not pr eclude additionalposit mrack results. Furthe r laboratory test ing may beconsidered if clinically yamile cated. For additional information, pl ease refer tohttp://educat ion.[facility] stDiagnostics.c om/faq/ TDJ865(This diane k is being provided for informational/e ducatio nal purposes on ly.) RAC (test code = Performing RAC) Organization Information: Site ID: IG Name: [facility] Address: [address] [place] [address] Director: Dr. Maxx Mejia Lab Interpretation Abnormal (test code = 14853-5) [facility] with MPO and PR3, with Reflex to ANCA Titer 2020-10-15 09:53:00 Test Item Value Reference Interpretation Comments Range ANCA screen (test NEGATIVE NEGATIVE ANCA Scre en includes code = 08089-3) evaluation f or p-ANCA, c-ANCA andatypical p-A NCA. A positive ANCA s creen reflexes to titerand pat tern(s), e.g., cytoplasmic pat tern (c-ANCA),perinu clear pattern (p-ANCA), or at ypical p-ANCA pattern.c-ANCA and p-ANCA are observed in vas culitis, whereasatypical p-ANCA is observed in IBD (Inflammatory BowelDisease). Atypical p-ANCA is detec tisha in about 55% to 80% ofpa tients with ulcerative coli tis but only 5% to 25% ofpat ients with Crohn's disease . Myeloperoxidase <1.0 See_Commen <1.0 AI No Antibody Ab (test code = t Detected> or = 1.0 AI 66207-9) Antibody Detect ed Autoantibodies to myeloperoxidase (MPO) are commonlyassocia tisha with the following small -vessel vasculitides:mi croscopic polyangiitis, p olyarteritis nodosa,Churg-St rauss syndrome, necro tizing and crescenticglome rulonephritis and occasionall y granulomatosis withpolyangiiti s (GPA, Sandor's). The perinuclear IFA pattern,(p- ANCA) is based largely on auto antibody to myeloperoxidase which serves as the primary antigen. These autoantibodiesa re present in active disease. [Automated message] The sy stem which generated this result transmitted ref erence range: <1.0 AI. The re ference range was not used to interpret this result as normal/abnormal . KY-3 (protease) <1.0 See_Commen <1.0 AI No Antibody (test code = t Detected> or = 1.0 AI 49704-2) Antibody Detect ed Autoantibodies to proteinase-3 (P R-3) are accepted aschar acteristic for granulomatosis with polyangiitis (G PA,Sandor's), and are detecta ble in 95% of the histologica llyproven cases. The cyto plasmic IFA pattern, (c-ANC A), isbased largely on auto antibody to KY-3 which serv es as theprimary anti gen. These autoantibodies are present in activedisease. [Automated message] The sy stem which generated this result transmitted ref erence range: <1.0 AI. The re ference range was not used to interpret this result as normal/abnormal . RAC (test code = Performing RAC) Organization Information: Site ID: EZ Name: [facility], Address: [address] [place] [address] Director: Katrin Curran MD,PhD,TYESHA [facility]Sm and Sm/TRANSPORTATION ATTENDANT [id number] 09:53:00 Test Item Value Reference Range Interpretation Comments Mireles antibody <1.0 NEG See_Comment [Automated (test code = message] The 87737-9) system which generated this result transmit tisha reference range : <1.0 NEG AI. Th e reference range was not used to interpret this result as normal/abnormal . TRANSPORTATION ATTENDANT-SM interp <1.0 NEG See_Comment [Automated (test code = message] The 80269-1) system which generated this result transmit tisha reference range : <1.0 NEG AI. Th e reference range was not used to interpret this result as normal/abnormal . RAC (test code = Performing RAC) Organization Information: Site ID: IG Name: [facility] Address: [address] [place], [place] [address] Director: Dr. Maxx Mejia [facility] HospitalBeta-2 glycoprotein 1 antibodies (IgG, IgA, IgM)2020-10-15 09:53:00 Test Item Value Reference Interpretation Comments Range Beta-2 <9 See_Comment [Automated mes nik] The glycoprotein 1 system which generated this antibody, IgG result transmi tted reference (test code = range: < OR = 2 0 SGU. The 27761-2) reference range was not used to interpret th is result as normal/abnormal . Beta-2 <9 See_Comment [Automated mes nik] The glycoprotein 1 system which generated this antibody, IgM result transmi tted reference (test code = range: < OR = 2 0 SMU. The 78641-3) reference range was not used to interpret th is result as normal/abnormal . Beta-2 <9 See_Comment The antiphospho lipid antibody glycoprotein 1 syndrome (APS ) gucci antibody, IgA clinical-patho logic (test code = correlation robbin t includesa 07811-7) clinical event (e.g. thrombosis, pre gnancyloss, thrombocytopeni a) and persistent positiveantipho spholipid antibodies (IgM or IgG MARCELLO>40 MPL/GPL,IgM or IgG anti-b2GPI antibodies ora lupus anticoagulant). International consensusguidel gary for APS suggest waiting at least 12weeks before retesting to confirm antibod ypersistence. The Systemic Jennifer pus [facility] llaborating [facility] immunologicalcl assification criteria for [facility] lupuserythemato alfosno (SLE) include testing for isotypeIgA, whi ch has yet to be incorporated into APScriteria. Lo w level antiphospholipi d antibodiesmay s ometimes be detected in the setting ofinfection, dr ug therapy or aging. [Automa tisha message] The system whic h generated this result tra nsmitted reference range : < OR = 20 SHO. The refere nce range was not used to int erpret this result as annmarie l/abnormal. RAC (test code Performing = RAC) Organization Information: Site ID: EZ Name: [facility], Address: [address] [place] [address] Director: Katrin Curran MD,PhD,TYESHA [facility] HospitalDirect antiglobulin test (DENTON)2020-10-15 09:53:00 Test Item Value Reference Range Interpretation Comments Direct antiglobulin NEGATIVE NEGATIVE test (DENTON) (test code = 1007-4) RAC (test code = RAC) Performing Organization Information: Site ID: IG [facility]: [facility] Address: [address] [place] [address] Director: Dr. Maxx Mejia [facility] HospitalDouble-Stranded DNA (dsDNA) Antibodies, [id number] 09:53:00 Test Item Value Reference Interpretation Comments Range dsDNA Ab, IU/mL H Immunoassay (test IU/ mL code = 5130-0) Interpretatio n < or = 4 Negative 5-9 Indeterminate > or = 10 Positive RAC (test code = Performing RAC) Organization Information: Site ID: IG Name: [facility] Address: [address] [place] [address] Director: Dr. Maxx Mejia Lab Interpretation Abnormal (test code = 92977-2) [facility] H[id number] 09:53:00InterpretationComment: dsDNA antibody is frequently positive in patients with systemic lupus erythematosus; however, it may be positive in a lesser percentage of patients with rheumatoidarthritis and other connective tissue disease. Apositive result at this stage of testing stops further testing, and does not preclude additional positiveantibodies. Clinical correlation is required to assess the need for testing additional analytes. iMotor.comNOVANT HEALTH HUNTERSVILLE MEDICAL CENTERJANEL [facility] Organization Information: Site ID: IG Name: [facility] Address: [address] [place] [address] Director: Dr. Maxx Mejia [facility] Hospit[id number] 09:53:00InterpretationComment: dsDNA antibody is frequently positive in patients with systemic lupus erythematosus; however, it may be positive in a lesser percentage of patients with rheumatoidarthritis and other connective tissue disease. Apositive result at this stage of testing stops further testing, and does not preclude additional positiveantibodies. Clinical correlation is required to assess the need for testing additional analytes. iMotor.comROBERT WOOD [facility] SOMERSET IISt. [facility] Organization Information: Site ID: IG Name: [facility] Address: [address] [place] [address] Director: Dr. Maxx Mejia [facility], total and [id number] 23:08:00 Test Item Value Reference Interpretation Comments Range PSA (test code = 6.0 ng/mL See_Comment H [Automated message] 2857-1) The system [employer] generated this result transmitted ref erence range: < OR = 4 .0. The reference range was not used to int erpret this result as normal/abnormal . PSA, free (test 0.7 ng/mL code = 03230-4) PSA, free percent See_Comment L PSA(ng/mL ) Free (test code = PSA(%) 41671-0) Estimated(x) Probability of Cancer(as% )0-2.5 (*) Approx. 12.6-4.0(1) 0-27(2) 24(3)4.1-10( 4) 0-10 56 11-15 28 16-20 20 21-25 16 >or =26 8>10 (+) N/A >50 References:(1)Lucie hargrove et al.:Urology 60: 469-474 (2001) (2)Mindyona e t al.:J.Urol 168: 922-925 (2001) Free PSA(% ) Sensitivity(%) Specificity(%) < or = 25 85 19 < or = 30 93 9 (3)Catalona et al.:KEM 277: 2984-6475 (1996 ) (4)Catalona et al.:KEM 279: 0723-8035 (1997 ) (x)These estima bonifacio vary with age, ethnicity, fami ly history and REED results.(*)The diagnostic usef ulness of % Free PSA h as not been establis hed in patients with t otal PSA below 2.6 ng/mL(+)In men with PSA above 10 ng /mL, prostate cancer risk is determined by total PSA alone . The Total PSA value from this assay syst em is standardized ag ainst the equimolar P SA standard. The t est result will be approximately 2 0% higher when com pared to the WHO-standardize d Total PSA ([employer]iemens as say). Comparison of s erial PSA results agatha uld be interpreted wit h this fact in mind. P SA was performed using the Edgar CoulterImmunoas say method. Values obtained from differentassay methods cannot be used interchangeably . PSAlevels, rega rdless of value, shoul d not be interpreteda s absolute eviden ce of the presence or absence ofdisea se. [Automated mess age] The system [employer] generated this result transmitted ref erence range: >25 % (c alc). The reference r olivia was not used to interpret this result as normal/abnor mal. RAC (test code = Performing RAC) Organization Information: Site ID: IG Name: [facility] Address: [address] [place] [address] Director: Dr. Maxx Mejia Lab Interpretation Abnormal (test code = 03586-1) [facility] HospitalPSA, total and [id number] 23:08:00 Test Item Value Reference Interpretation Comments Range PSA (test code = 6.0 ng/mL See_Comment H [Automated message] 4967-3) The system [employer] generated this result transmitted ref erence range: < OR = 4 .0. The reference range was not used to int erpret this result as normal/abnormal . PSA, free (test 0.7 ng/mL code = 75001-9) PSA, free percent See_Comment L PSA(ng/mL ) Free (test code = PSA(%) 96988-5) Estimated(x) Probability of Cancer(as% )0-2.5 (*) Approx. 12.6-4.0(1) 0-27(2) 24(3)4.1-10( 4) 0-10 56 11-15 28 16-20 20 21-25 16 >or =26 8>10 (+) N/A >50 References:(1)Lucie hargrove et al.:Urology 60: 469-474 (2002) (2)Lilia ashford t al.:J.Urol 168: 922-925 (2001) Free PSA(% ) Sensitivity(%) Specificity(%) < or = 25 85 19 < or = 30 93 9 (3)Catalona et al.:KEM 277: 1609-6038 (1996 ) (4)Catalona et al.:KEM 279: 2154-4896 (1997 ) (x)These estima bonifacio vary with age, ethnicity, fami ly history and REED results.(*)The diagnostic usef ulness of % Free PSA h as not been establis hed in patients with t otal PSA below 2.6 ng/mL(+)In men with PSA above 10 ng /mL, prostate cancer risk is determined by total PSA alone . The Total PSA value from this assay syst em is standardized ag ainst the equimolar P SA standard. The t est result will be approximately 2 0% higher when com pared to the WHO-standardize d Total PSA (Siemens as say). Comparison of s erial PSA results agatha uld be interpreted wit h this fact in mind. P SA was performed using the Edgar TroveboxImmunoas say method. Values obtained from differentassay methods cannot be used interchangeably . PSAlevels, rega rdless of value, shoul d not be interpreteda s absolute eviden ce of the presence or absence ofdisea se. [Automated mess age] The system [employer] generated this result transmitted ref erence range: >25 % (c alc). The reference r olivia was not used to interpret this result as normal/abnor mal. RAC (test code = Performing RAC) Organization Information: Site ID: IG Name: [facility] Address: [address] [place] [address] Director: Dr. Maxx Mejia Lab Interpretation Abnormal (test code = 64770-3) [facility] HospitalVitamin B12 [id number] 23:32:00 Test Item Value Reference Interpretation Comments Range Vitamin B12 280 pg/mL 200-1100 Please Note: A lthough the (test code = reference range for 2132-01) spdwcjzK67 is 2 00-1100 pg/mL, it has b een reported that between5 a nd 10% of patients with v alues between 200 and 400pg/m L may experience neur opsychiatric and hematologic abnormalities due to occult B 12 deficiency; les s than 1%of patients with v alues above 400 pg/mL will have symptoms. RAC (test Performing code = RAC) Organization Information: Site ID: RGA Name: [facility] Address: [address] [place] [address] Director: Maxx L RobertoPremier Health Miami Valley HospitalVitamin B1 [id number] 23:32:00 Test Item Value Reference Range Interpretation Comments Vitamin B1 14 nmol/L 8-30 Vitamin (test code = supplementation 93133-3) within 24 hours prior to blood draw m ay affect the accu racy of results. This test was develo ped and its analyti eli performance characteristics have been determined by [employer]. It has not been cl eared or approved by theFDA. This as say has been valida tisha pursuant to the CLIA regulations and is used for clinic al purposes. RAC (test code Performing = RAC) Organization Information: Site ID: [facility] Name: [facility] Address: [address] [place] [address] Director: Rachid Ruiz M.D. [facility] HospitalVitamin E level, plasma or [id number] 23:32:00 Test Item Value Reference Range Interpretation Comments Alpha-tocoph mg/L Reference Range lorenzo mg/L 5.7-19.9 mg /L (test code = Levels o f 1823-4) alpha-tocophero l <5 mg/L are consistent with Vitamin E defic iency in adults.Vitamin supplementation within 24 hours prior to blood draw may affect the accuracy of results. T his test was develo ped and its analytical performance characteristics have been determined by [employer]. It has not been cl eared or approved by theFDA. This assay has been validated pursu ant to the CLIA regula tions and is used for clinical purpos es. Gamma-tocoph See_Comment This test was lorenzo mg/L developed and i ts (test code = analytical perf ormance 28437-5) characteristics have been determined by [employer] . It has not been cl eared or approved by theFDA. This assay has been validated pursu ant to the CLIA regula tions and is used for clinical purpos es. [Automated mess age] The system [employer] generated this result transmitted ref erence range: <4.4 mg/ L . The reference range was not used to int erpret this result as normal/abnormal . RAC (test Performing code = RAC) Organization Information: Site ID: [facility] Name: [facility] Address: [address] [place] [address] Director: Rachid Ruiz M.D. [facility] HospitalMethylmalonic acid, [id number] 23:32:00 Test Item Value Reference Interpretation Comments Range Methylmalonic 376 nmol/L 87-318 H This test was developed and acid (test code = its analyt ical 38154-0) performancechar acteristics have been deter mined by [facility]. It has not beencleared or approved by FDA. This assay has been validatedpursua nt to the CLIA regulation s and is used for clinicalpur poses. RAC (test code = Performing RAC) Organization Information: Site ID: EZ Name: [facility], Address: [address] [place] [address] Director: Katrin Curran MD,PhD,TYESHA Lab Abnormal Interpretation (test code = 24874-7) [facility] HospitalANA SCREEN W IFA W REFLEX TO [id number] 23:32:00 Test Item Value Reference Interpretation Comments Range DAO Screen (test POSITIVE NEGATIVE A DAO IFA is a first code = 34277-9) line screen for detecting thepresence of up to approximately 1 50 autoantibodies invarious autoi mmune diseases. A pos itive DAO IFA resulti s suggestive of autoimmune dise ase and reflexes to titer and pattern. Fu rther laboratory test ing may beconsidere d if clinically indicated. For additional information, pl ease refer tohttp://educat ion.[employer] .[employer]/ faq/QPG529(This link is being provid ed for informational/e ducat ional purposes only.) DAO titer (test 1:320 titer H code = 5048-4) Reference Ran ge <1:40 Negative 1:40-1:80 Low Antibody Le lillian >1 :80 Elevated Antibody Level DAO pattern (test Nuclear, Speckled A Speck led pattern is code = 15912-6) associated w ith mixed connectivetissu e disease (MCTD), systemic lupus erythematosus(S LE), Sjogren's syndr ome, dermatomyositis , and systemic sclerosis/polym yosit is overlap. AC-2,4,5,29: Speckled International Consensus on AN A Patterns(https: //doi .org/10.1515/cc lm-20 18-0052) RAC (test code = Performing RAC) Organization Information: Site ID: IG Name: [facility] Lab Address: [address] [place] [address] Director: Dr. Maxx Mejia Lab Interpretation Abnormal (test code = 27347-6) [facility] HospitalVitamin B12 [id number] 23:32:00 Test Item Value Reference Interpretation Comments Range Vitamin B12 280 pg/mL 200-1100 Please Note: A lthough the (test code = reference range for 2132-01) folgaesY38 is 2 00-1100 pg/mL, it has b een reported that between5 a nd 10% of patients with v alues between 200 and 400pg/m L may experience neur opsychiatric and hematologic abnormalities due to occult B 12 deficiency; les s than 1%of patients with v alues above 400 pg/mL will have symptoms. RAC (test Performing code = RAC) Organization Information: Site ID: RGA Name: [facility] Address: [address] [place] [address] Director: Maxx Mejia [facility] HospitalVitamin B1 [id number] 23:32:00 Test Item Value Reference Range Interpretation Comments Vitamin B1 14 nmol/L 8-30 Vitamin (test code = supplementation 70666-1) within 24 hours prior to blood draw m ay affect the accu racy of results. This test was develo ped and its analyti eli performance characteristics have been determined by [employer]. It has not been cl eared or approved by theA. This as say has been valida tisha pursuant to the CLIA regulations and is used for clinic al purposes. RAC (test code Performing = RAC) Organization Information: Site ID: [facility] Name: [facility] Address: [address] [place] [address] Director: Rachid Ruiz M.D. [facility] HospitalVitamin E level, plasma or [id number] 23:32:00 Test Item Value Reference Range Interpretation Comments Alpha-tocoph mg/L Reference Range lorenzo mg/L 5.7-19.9 mg /L (test code = Levels o f 1823-4) alpha-tocophero l <5 mg/L are consistent with Vitamin E defic iency in adults.Vitamin supplementation within 24 hours prior to blood draw may affect the accuracy of results. T his test was develo ped and its analytical performance characteristics have been determined by [employer] . It has not been cl eared or approved by theFDA. This assay has been validated pursu ant to the CLIA regula tions and is used for clinical purpos es. Gamma-tocoph See_Comment This test was lorenzo mg/L developed and i ts (test code = analytical perf ormance 55059-4) characteristics have been determined by [employer] . It has not been cl eared or approved by theFDA. This assay has been validated pursu ant to the CLIA regula tions and is used for clinical purpos es. [Automated mess age] The system [employer] generated this result transmitted ref erence range: <4.4 mg/ L . The reference range was not used to int erpret this result as normal/abnormal . RAC (test Performing code = RAC) Organization Information: Site ID: [id number] Name: [facility] Address: [address] [place] [address] Director: Rachid Ruiz M.D. [facility] HospitalMethylmalonic acid, [id number] 23:32:00 Test Item Value Reference Interpretation Comments Range Methylmalonic 376 nmol/L 87-318 H This test was developed and acid (test code = its analyt ical 20736-2) performancechar acteristics have been deter mined by [employer] [facility]. It has not beencleared or approved by FDA. This assay has been validatedpursua nt to the CLIA regulation s and is used for clinicalpur poses. RAC (test code = Performing RAC) Organization Information: Site ID: EZ Name: [facility], Address: [address] [place] [address] Director: Katrin Curran MD,PhD,TYESHA Lab Abnormal Interpretation (test code = 75017-5) [facility] HospitalANA SCREEN W IFA W REFLEX TO [id number] 23:32:00 Test Item Value Reference Interpretation Comments Range DAO Screen (test POSITIVE NEGATIVE A DAO IFA is a first code = 24937-3) line screen for detecting thepresence of up to approximately 1 50 autoantibodies invarious autoi mmune diseases. A pos itive DAO IFA resulti s suggestive of autoimmune dise ase and reflexes to titer and pattern. Fu rther laboratory test ing may beconsidere d if clinically indicated. For additional information, pl ease refer tohttp://educat ion.Tandem/ faq/IQV738(This link is being provid ed for informational/e ducat ional purposes only.) DAO titer (test 1:320 titer H code = 5048-4) Reference Ran ge <1:40 Negative 1:40-1:80 Low Antibody Le lillian >1 :80 Elevated Antibody Level DAO pattern (test Nuclear, Speckled A Speck led pattern is code = 33845-4) associated w ith mixed connectivetissu e disease (MCTD), systemic lupus erythematosus(S LE), Sjogren's syndr ome, dermatomyositis , and systemic sclerosis/polym yosit is overlap. AC-2,4,5,29: Speckled International Consensus on AN A Patterns(https: //doi .org/10.1515/cc lm-20 18-0052) RAC (test code = Performing RAC) Organization Information: Site ID: IG Name: [facility] Address: [address] [place] [id number] Director: Dr. Maxx Mejia Lab Interpretation Abnormal (test code = 59681-4) [facility] HospitalImmunofixanemours foundation, [id number] 23:32:00InterpretationComment: A faint IgG (kappa) monoclonal immunoglobulin is detected. IgM lambda monocl onal band present. [employer] Organization Information: Site ID: IG Name: [facility] Address: [address] [place] [id number] Director: Dr. Maxx Mejia [facility] HospitalImmunofixanemours foundation, [id number] 23:32:00InterpretationComment: A faint IgG (kappa) monoclonal immunoglobulin is detected. IgM lambda monocl onal band present. [employer] Organization Information: Site ID: IG [facility]: [facility] Address: [address] [place] [address] Director: Dr. Maxx [facility] LUMBAR [id number] 14:53:45 [facility] : 1940 Sex: MCLINICAL INDICATION: C61 Malignant neoplasm of prostateMODALITY: TheraVid 3T MRI TECHNIQUE: Multiplanar multi sequence MRI examination of the lumbar spine was performed. IV gadolinium contrast wasadministered and post-contrast imaging performed.IMPRESSION:1. Old compression fracture of L2 without edema. 2. Intradiskal herniation/Schmorl's nodes involve the superior endplate of L3 and the inferior endplate of L4. Finding is a little more prominent at L3. There is edema and mild enhancement around each Schmorl's node that may explain the increased uptake at L3 on the bone scan.3. No suggestion of metastatic disease.4. L5-S1, 5 mm right central disc protrusion contacting the S1 nerve root in the right lateral recess, moderate bilateral facet arthropathy and ligamentum flavum thickening . Central canal is patent. Mild bilateral lateral recess and foraminal narrowing. 5. At L4-L5, 4 mm broad-based disc osteophyte complex., bilateral facet arthropathy and ligamentum flavum redundancy. Mild jovanny tral canal narrowing of 9 mm. Moderate bilateral lateral recess narrowing encroaching on the descending L5 nerve roots. Moderate bilateral foraminal narrowing without nerve root compression. 6. At L3-L4, 3 mm broad-based disc osteophyte complex, facet arthropathy and moderate ligamentum flavum thickening. Mild central canal narrowing of 8.8 mm. Moderate bilateral lateral recess narrowing crowding the descending L4 nerve roots. Mild bilateral foraminal narrowing without nerve root compression. 7. AtL2-L3, 3 mm broad-based disc osteophyte complex, mild bilateral facet and uncovertebral joint arthropathy. Mild canal narrowing of 8.6 mm . Mild to moderate bilateral lateral recess and foraminal narrowing without nerve root compression.FINDINGS:COMPARISON: Bone scan demonstrating abnormal uptake atL3 and abnormal uptake in the inferior right SI joint.General observations: There is an old compression fracture involving the superior inferior endplates of L2 with 20% loss of height anteriorly and no edema or enhancement. There is depression of the central superior endplate of L3 most likely related to a Schmorl's node. There mild enhancement and mild Modic type 1 edema surrounding the Schmorl's node. Remainder of the vertebral body height is normal. There is also a Schmorl's node involving the inferior endplate of the L4 with mild edema around it on STIR and mild enhancement.There are no findings suggestive of metastatic disease.There is metallic artifact at L5-S1 and in the sacrum from prior surgery.FINDINGS AT SPECIFIC LEVELS:L5-S1: There is a 5 mm right central disc protrusion inserting between the descending S1 nerve roots in the with contact of the S1 nerve root in the right lateral recess. There is moderate bilateral facet arthropathy and ligamentum flavum thickening. Central canal ispatent. There is mild bilateral foraminal narrowing.L4-L5: There is a 4 mm broad-based disc osteophyte complex. There is bilateral facet arthropathy and ligamentum flavum redundancy. There is mild central canal narrowing of 9 mm. There is moderate bilateral lateral recess narrowing encroaching on the descending L5 nerve roots. There is moderate bilateral foraminal narrowing without nerve root compression.L3-L4: There is a 3 mm broad-based disc osteophyte complex that is concave centrally. There is mo derate facet arthropathy and moderate ligamentum flavum thickening. There is mild central canal narrowing of 8.8 mm with epidural fat posteriorly. There is moderate bilateral lateral recess narrowing crowding the descending L4 nerve roots. There is mild bilateral foraminal narrowing without nerve root compression.L2-L3: There is a 3 mm broad-based disc osteophyte complex. There is mild bilateral facet and uncovertebral joint arthropathy. There is mild canal narrowing of 8.6 mm with epidural fat posteriorly. There is mild to moderate bilateral lateral recess and foraminal narrowing without nerve root compression.L1-L2: There is no disc protrusion. There is mild bilateral facet arthropathy. The central canal and foramina are patent.SARS coronavirus 2 RNA [Presence] in Respiratory specimen by SHANE with probe [id number] 14:35:05 Test Item Value Reference Range Interpretation Comments SARS coronavirus 2 RNA Not detected Not-Detected [Presence] in Respiratory specimen by SHANE with probe detection (test code = 17911-5)
[2021-10-11] MEDS ORDERED: ONDANSETRON 4 MG/2 ML VIAL ONE (01:30)
[2021-10-11 02:03] LABS: Absolute Lymphocytes (CBC) 1.1 K/uL (0.7-4.9); Hematocrit 39.8 % (39.6-49.0); Lymphocytes % 15.8 % (15.3-44.8); MPV 8.8 fL (7.6-11.3); RBC Red Blood Cell Count 4.16 M/uL (4.33-5.43)
[2021-10-11 02:07] LABS: Protime INR 1.04
[2021-10-11 02:26] LABS: Albumin 3.7 g/dL (3.4-5.0); Bilirubin Direct 0.2 mg/dL (0-0.2); Bilirubin Total 0.7 mg/dL (0.2-1.0); Magnesium 1.8 mg/dL (1.8-2.4); Potassium 3.2 mmol/L (3.5-5.1); Troponin High Sensitivity 19.9 pg/mL (<58.9)
--- NOTE | 2021-10-11 04:38 | ER ---
Nurse's Notes [facility] Name: Vaughn Webb Age: 81 yrs Sex: Male : 1940 Arrival Date: 10/11/2021 Time: 00:59 Bed 18 Private MD: Diagnosis: Dizziness and giddiness;Syncope Near Presentation: 10/11 01:11 Chief complaint: EMS states: Called for patient who had fall in bathroom, reports onset lp1 of dizziness prior to fall; Patient denies hitting head, reports dizziness has been ongoing through week, previous fall earlier this week; Patient reports nausea. Care prior to arrival: None. Mechanism of Injury: Fall from standing position. Trauma event details: Injury occurred in the [facility], Injury occurred: at home. Injury occurred: October 11, 2021 Injury occurred at: 00:00. 01:11 Acuity: PEDRO LUIS 2 lp1 01:11 Method Of Arrival: EMS: [facility] lp1 01:20 Coronavirus screen: At this time, the client does not indicate any symptoms associated lp1 with coronavirus-19. Ebola Screen: No symptoms or risks identified at this time. Initial Sepsis Screen: Does the patient meet any 2 criteria? No. Patient's initial sepsis screen is negative. Does the patient have a suspected source of infection? No. Patient's initial sepsis screen is negative. Risk Assessment: Do you want to hurt yourself or someone else? Patient reports no desire to harm self or others. Onset of symptoms was October 11, 2021. Historical: - Allergies: 01:23 Oxybutynin Chloride; lp1 - Home Meds: 01:23 bicalutamide 50 mg oral tab 1 tab once daily [Active]; citalopram 40 mg oral tab once lp1 daily [Active]; ezetimibe 10 mg oral tab 1 tab once daily [Active]; metoprolol tartrate 50 mg Oral tab 1 tab once daily [Active]; Plavix 75 mg Oral tab 1 tab once daily [Active]; rosuvastatin 40 mg oral tab 1 tab once daily [Active]; pantoprazole 40 mg oral grps 1 packet 2 times per day [Active]; - PMHx: 01:23 Hyperlipidemia; Hypertension; PROSTATE CA; lp1 - Immunization history:: Adult Immunizations up to date. - Immunization history: Last tetanus immunization: unknown. - Social history:: Smoking status: Patient denies any tobacco usage or history of. Screenin:16 Abuse screen: Denies threats or abuse. Nutritional screening: No deficits noted. ag7 Tuberculosis screening: No symptoms or risk factors identified. Fall Risk Fall in past 12 months (25 points). No secondary diagnosis (0 pts). IV access (20 points). Ambulatory Aid- None/Bed Rest/Nurse Assist (0 pts). Gait- Normal/Bed Rest/Wheelchair (0 pts) Mental Status- Oriented to own ability (0 pts). Total Murry Fall Scale indicates High Risk Score (45 or more points). Fall prevention measures have been instituted. Side Rails Up X 2 Placed Close to Nursing Station Frequent Obs/Assessments Occuring Family Present and informed to notify staff if the need to leave the bedside As available patient and family educated on Fall Prevention Program and Strategies. Primary Survey: 01:12 NO uncontrolled hemorrhage observed. A: The client is awake and alert. The airway is lp1 patent. The client is alert. Airway: patent, No supplemental oxygen in use on arrival. Breathing/Chest: Spontaneous respiratory effort, equal unlabored respirations, breath sounds clear bilaterally, regular pattern, symmetrical chest rise and fall. Respiratory effort: spontaneous, unlabored, Respiratory pattern: regular. Circulation: Skin temperature: warm, dry. Disability Client is alert. Exposure/Environment: Obvious injury(ies) are noted at this time: Tenderness of palpation to right lateral abdomen. 02:17 Reassessment Breathing: Spontaneous respiratory effort, equal unlabored respirations, ag7 breath sounds clear bilaterally, regular pattern with symmetrical chest rise and fall. Respiratory effort Spontaneous Unlabored Breath sounds Clear Respiratory pattern Regular Chest inspection Symmetrical. Secondary Survey: 01:17 HEENT: Head No injury/deformity. Gastrointestinal: Abdomen is soft, Palpation Patient lp1 reports tenderness to right lateral lower abdomen. : No signs and/or symptoms were reported regarding the genitourinary system. Musculoskeletal: Range of motion: intact in all extremities. Assessment: 01:19 General: Appears uncomfortable, Behavior is appropriate for age. Neuro: Reports lp1 dizziness. GI: Reports nausea. 02:14 Reassessment: Patient and/or family updated on plan of care and expected duration. Pain ag7 level reassessed. Patient is alert, oriented x 3, equal unlabored respirations, skin warm/dry/pink. Patient states feeling better. Patient states symptoms have improved. Pain: Complains of pain in back Pain does not radiate. Pain currently is 5 out of 10 on a pain scale. Quality of pain is described as aching, Pain began suddenly, Is continuous, Alleviated by medications. 03:05 Reassessment: No changes from previously documented assessment. ag7 04:02 Reassessment: Patient and/or family updated on plan of care and expected duration. Pain ag7 level reassessed. Patient is alert, oriented x 3, equal unlabored respirations, skin warm/dry/pink. Patient denies pain at this time. Patient states feeling better. Patient states symptoms have improved. 05:42 Reassessment: No changes from previously documented assessment. ag7 Vital Signs: 01:03 BP 196 / 81; Pulse 75; Resp 14 S; Pulse Ox 100% ; Pain 10/10; ag7 01:20 BP 196 / 81; Pulse 78; Resp 16; Temp 97.6(TE); Pulse Ox 100% on R/A; Weight 73.48 kg lp1 (R); Height 5 ft. 1 in. (154.94 cm); 01:30 BP 178 / 72; Pulse 75; Resp 20; Pulse Ox 99% on R/A; ag7 04:06 BP 157 / 56; Pulse 64; Resp 18 S; Pulse Ox 96% on R/A; Pain 0/10; ag7 06:00 BP 158 / 69; Pulse 63; Resp 18 S; Pulse Ox 95% on R/A; Pain 0/10; ag7 01:20 Body Mass Index 30.61 (73.48 kg, 154.94 cm) lp1 Sparkle Coma Score: 01:19 Eye Response: spontaneous(4). Verbal Response: oriented(5). Motor Response: obeys lp1 commands(6). Total: 15. Trauma Score (Adult): 01:19 Eye Response: spontaneous(1); Verbal Response: oriented(1); Motor Response: obeys lp1 commands(2); Systolic BP: > 89 mm Hg(4); Respiratory Rate: 10 to 29 per min(4); Sycamore Score: 15; Trauma Score: 12 ED Course: 00:59 Patient arrived in ED. mw2 01:02 Deuce Howard MD is Attending Physician. mh7 01:12 Triage completed. lp1 01:13 Monserrat Chaudhary, RN is Primary Nurse. ag7 01:19 Patient has correct armband on for positive identification. Bed in low position. Client lp1 placed on continuous cardiac and pulse oximetry monitoring. NIBP monitoring applied. 01:47 XRAY Chest (1 view) In Process Unspecified. EDMS 02:17 No provider procedures requiring assistance completed. Inserted saline lock: 20 gauge ag7 in right antecubital area, using aseptic technique. Blood collected. 02:17 Patient maintains SpO2 saturation greater than 95% on room air. ag7 02:18 Patient none. ag7 02:18 Thermoregulation: warm blanket given to patient. ag7 02:22 CT Head C Spine In Process Unspecified. EDMS 04:37 Matt Garcia is Hospitalizing Provider. 7 04:56 COVID-19 SARS RT PCR (Document "Date of Onset" if Symptomatic) Sent. ag7 Administered Medications: 01:44 Drug: Zofran (Ondansetron) 4 mg Route: IVP; Site: right antecubital; ag7 02:15 Follow up: Response: No adverse reaction ag7 Medication: 01:23 VIS not applicable for this client. lp1 Output: 07:08 Urine: 275ml (Voided); Total: 275ml. 7 Outcome: 04:38 Decision to Hospitalize by Provider. mh7 16:32 Patient left the ED. iw Signatures: Dispatcher [employer] EDMahi Tamez RN RN iw Genet Bolden RN RN lp1 Wilfrid Moreno 2 Deuce Howard MD MD 7 Monserrat Chaudhary, MAXIME RN 7
--- NOTE | 2021-10-11 04:38 | EDPHYS ---
Physician Documentation [facility] Name: Vaughn Webb Age: 81 yrs Sex: Male : 1940 Arrival Date: 10/11/2021 Time: 00:59 Bed 18 Private MD: ED Physician Deuce Howard HPI: 10/11 01:05 This 81 yrs old Male presents to ER via EMS with complaints of Fall Injury. mh7 01:05 The patient has experienced near-syncope, almost passed out, felt dizzy, felt faint. mh7 01:05 Onset: The symptoms/episode began/occurred just prior to arrival, today. Duration: This mh7 was a single episode, that lasted 3 minute(s). Context: the episode(s) was witnessed, by no one, occurred at home, occurred while the patient was walking, Just prior to the episode the patient experienced dizziness. Associated injury: The patient did not suffer any apparent associated injury. Associated signs and symptoms: Pertinent negatives: abdominal pain, agitation, ataxia, blurred vision, chest pain, combativeness, confusion, diaphoresis, diarrhea, headache, nausea, numbness, palpitations, seizure, shortness of breath, tingling, vertigo, vomiting, weakness. Current symptoms: Dizziness. Historical: - Allergies: 01:23 Oxybutynin Chloride; lp1 - Home Meds: 01:23 bicalutamide 50 mg oral tab 1 tab once daily [Active]; citalopram 40 mg oral tab once lp1 daily [Active]; ezetimibe 10 mg oral tab 1 tab once daily [Active]; metoprolol tartrate 50 mg Oral tab 1 tab once daily [Active]; Plavix 75 mg Oral tab 1 tab once daily [Active]; rosuvastatin 40 mg oral tab 1 tab once daily [Active]; pantoprazole 40 mg oral grps 1 packet 2 times per day [Active]; - PMHx: 01:23 Hyperlipidemia; Hypertension; PROSTATE CA; lp1 - Immunization history:: Adult Immunizations up to date. - Immunization history: Last tetanus immunization: unknown. - Social history:: Smoking status: Patient denies any tobacco usage or history of. ROS: 01:05 Constitutional: Negative for fever, chills, and weight loss, Eyes: Negative for injury, mh7 pain, redness, and discharge, ENT: Negative for injury, pain, and discharge, Neck: Negative for injury, pain, and swelling, Cardiovascular: Negative for chest pain, palpitations, and edema, Respiratory: Negative for shortness of breath, cough, wheezing, and pleuritic chest pain, Abdomen/GI: Negative for abdominal pain, nausea, vomiting, diarrhea, and constipation, Back: Negative for injury and pain, : Negative for injury, bleeding, discharge, and swelling, MS/Extremity: Negative for injury and deformity, Skin: Negative for injury, rash, and discoloration, Neuro: Negative for headache, weakness, numbness, tingling, and seizure, Psych: Negative for depression, anxiety, suicide ideation, homicidal ideation, and hallucinations, Allergy/Immunology: Negative for hives, rash, and allergies, Endocrine: Negative for neck swelling, polydipsia, polyuria, polyphagia, and marked weight changes, Hematologic/Lymphatic: Negative for swollen nodes, abnormal bleeding, and unusual bruising. Exam: 01:05 Head/Face: Normocephalic, atraumatic. Eyes: Pupils equal round and reactive to light, mh7 extra-ocular motions intact. Lids and lashes normal. Conjunctiva and sclera are non-icteric and not injected. Cornea within normal limits. Periorbital areas with no swelling, redness, or edema. Neck: Trachea midline, no thyromegaly or masses palpated, and no cervical lymphadenopathy. Supple, full range of motion without nuchal rigidity, or vertebral point tenderness. No Meningismus. Chest/axilla: Normal chest wall appearance and motion. Nontender with no deformity. No lesions are appreciated. Cardiovascular: Regular rate and rhythm with a normal S1 and S2. No gallops, murmurs, or rubs. Normal PMI, no JVD. No pulse deficits. Respiratory: Lungs have equal breath sounds bilaterally, clear to auscultation and percussion. No rales, rhonchi or wheezes noted. No increased work of breathing, no retractions or nasal flaring. Abdomen/GI: Soft, non-tender, with normal bowel sounds. No distension or tympany. No guarding or rebound. No evidence of tenderness throughout. Back: No spinal tenderness. No costovertebral tenderness. Full range of motion. Skin: Warm, dry with normal turgor. Normal color with no rashes, no lesions, and no evidence of cellulitis. MS/ Extremity: Pulses equal, no cyanosis. Neurovascular intact. Full, normal range of motion. 01:05 Psych: Awake, alert, with orientation to person, place and time. Behavior, mood, and affect are within normal limits. 01:05 Constitutional: The patient appears in no acute distress, alert, awake, uncomfortable. 01:05 Neuro: Orientation: is normal, Mentation: is normal, Memory: is normal, Cranial nerves: grossly normal, Cerebellar function: is grossly normal, Motor: is normal, Sensation: is normal, Gait: not tested. seizure activity, is not displayed by the patient, Abnormal movements: there are no abnormal movements. Vital Signs: 01:03 BP 196 / 81; Pulse 75; Resp 14 S; Pulse Ox 100% ; Pain 10/10; ag7 01:20 BP 196 / 81; Pulse 78; Resp 16; Temp 97.6(TE); Pulse Ox 100% on R/A; Weight 73.48 kg lp1 (R); Height 5 ft. 1 in. (154.94 cm); 01:30 BP 178 / 72; Pulse 75; Resp 20; Pulse Ox 99% on R/A; ag7 04:06 BP 157 / 56; Pulse 64; Resp 18 S; Pulse Ox 96% on R/A; Pain 0/10; ag7 06:00 BP 158 / 69; Pulse 63; Resp 18 S; Pulse Ox 95% on R/A; Pain 0/10; ag7 01:20 Body Mass Index 30.61 (73.48 kg, 154.94 cm) lp1 [facility] Coma Score: 01:19 Eye Response: spontaneous(4). Verbal Response: oriented(5). Motor Response: obeys lp1 commands(6). Total: 15. Trauma Score (Adult): 01:19 Eye Response: spontaneous(1); Verbal Response: oriented(1); Motor Response: obeys lp1 commands(2); Systolic BP: > 89 mm Hg(4); Respiratory Rate: 10 to 29 per min(4); Sparkle Score: 15; Trauma Score: 12 MDM: 04:35 Differential Diagnosis: cardiac arrhythmia, idiopathic syncope, pseudo seizure, mh7 seizure, vasovagal episode. Data reviewed: vital signs, nurses notes, lab test result(s), cardiac enzymes, CBC, electrolytes, urinalysis, EKG, radiologic studies, CT scan, plain films. Data interpreted: Pulse oximetry: on room air is 95 %. Interpretation: normal. Counseling: I had a detailed discussion with the patient and/or guardian regarding: the historical points, exam findings, and any diagnostic results supporting the discharge/admit diagnosis, the presence of at least one elevated blood pressure reading (>120/80) during this emergency department visit, lab results, radiology results, the need for further work-up and treatment in the hospital. 04:38 Patient medically screened. 7 07:35 Response to treatment: the patient's symptoms have mildly improved after treatment. 10/11 01:11 Order name: Basic Metabolic Panel; Complete Time: 03:20 [facility] 10/11 01:11 Order name: CBC with Diff; Complete Time: 03:20 10/11 01:11 Order name: LFT's; Complete Time: 03:20 [facility] 10/11 01:11 Order name: Magnesium; Complete Time: 03:20 [facility] 10/11 01:11 Order name: NT PRO-BNP; Complete Time: 03:20 10/11 01:11 Order name: PT-INR; Complete Time: 03:20 [facility] 10/11 01:11 Order name: Troponin HS; Complete Time: 03:20 10/11 01:11 Order name: XRAY Chest (1 view) 10/11 01:11 Order name: EKG; Complete Time: 01:12 [facility] 10/11 01:11 Order name: Cardiac monitoring; Complete Time: 10/11 01:11 Order name: EKG - Nurse/Tech; Complete Time: 10/11 01:11 Order name: CT Head C Spine [facility] 10/11 04:49 Order name: COVID-19 SARS RT PCR (Document "Date of Onset" if Symptomatic) 10/11 01:11 Order name: IV Saline Lock; Complete Time: 10/11 01:11 Order name: Labs collected and sent; Complete Time: [facility] 10/11 01:11 Order name: O2 Per Protocol; Complete Time: [facility] 10/11 01:11 Order name: O2 Sat Monitoring; Complete Time: Administered Medications: :44 Drug: Zofran (Ondansetron) 4 mg Route: IVP; Site: right antecubital; 7 02:15 Follow up: Response: No adverse reaction [facility] Disposition Summary: 10/11/21 04:38 Hospitalization Ordered Hospitalization Status: Observation [facility] Provider: Matt Garcia Condition: Stable [facility] Problem: new [facility] Symptoms: have improved [facility] Bed/Room Type: Standard [facility] Location: Telemetry/MedSurg (observation)(10/11/21 12:55) [facility] Room Assignment: 230(10/11/21 12:55) [facility] Diagnosis - Dizziness and giddiness [facility] - Syncope Near [facility] Forms: - Medication Reconciliation Form [facility] - SBAR form [facility] Signatures: Dispatcher [employer] EDMS Genet Bolden RN RN 1 Coco Lebron RN RN cg Kim Gibbons 1 Deuce Howard MD MD [facility] Monserrat Chaudhary RN RN [facility] Corrections: (The following items were deleted from the chart) 05:03 04:38 Telemetry/MedSurg (observation) [facility] cg 05:03 04:38 [facility] cg 07:33 01:05 Details of fall: The patient fell from an upright position, while walking, [place] [id number] 07:37 07:35 Differential Diagnosis: cardiac arrhythmia, idiopathic syncope, pseudo seizure, [facility] seizure, vasovagal episode, [facility] 07:37 07:35 Data reviewed: vital signs, nurses notes, lab test result(s), cardiac enzymes, [facility] CBC, electrolytes, urinalysis, EKG, radiologic studies, CT scan, plain films, [facility] 07:37 07:35 Data interpreted: Pulse oximetry: on room air is 95 %. Interpretation: normal. [facility] 07:37 07:35 Counseling: I had a detailed discussion with the patient and/or guardian [facility] regarding: the historical points, exam findings, and any diagnostic results supporting the discharge/admit diagnosis, the presence of at least one elevated blood pressure reading (>120/80) during this emergency department visit, lab results, radiology results, the need for further work-up and treatment in the hospital, [facility] : 05:03 [facility] ER HOLD cg kj1 12:55 05:03 ERHOLD- cg kj1
--- NOTE | 2021-10-11 06:22 | P.HP ---
Certification for Inpatient Patient admitted to: Observation With expected LOS: <2 Midnights Patient will require the following post-hospital care: None Practitioner: I am a practitioner with admitting privileges, knowledge of patient current condition, hospital course, and medical plan of care. Services: Services provided to patient in accordance with Admission requirements found in Title 42 Section 412.3 of the Code of Federal Regulations Patient History Date of Service: 10/11/21 Primary Care Provider: Jamie Reason for admission: Dizziness, Near Syncope History of Present Illness: Patient is an 81-year-old male with past medical history of hyperlipidemia, hypertension, prostate cancer, and dizziness of unknown origin who presented to the ED via EMS after a fall. Per patient's daughter, patient has been falling a lot recently. He has been undergoing a work-up for dizziness without a definitive diagnosis. Vertigo has been ruled out by ENT and his brain MRI results are pending. Daughter states that patient got up to use the restroom this evening and became dizzy and fell. She is unsure if he hit his head or lo ss consciousness. Upon arrival to the ED, patient is complaining of dizziness and nausea. He was given Zofran and was resting comfortably upon my assessment, he denied any pain at the time. CT head negative and chest x-ray negative. Labs significant for potassium 3.2, creatinine 1.57, BNP 1000. ED provider wishes to admit patient for observation. Allergies No Known Allergies Allergy (Verified 10/27/14 08:33) Home Medications: Aspirin 81 mg PO DAILY 04/10/13 Citalopram [Celexa*] 20 mg PO DAILY 04/10/13 Clopidogrel Bisulfate [Plavix*] 75 mg PO DAILY 04/10/13 Ezetimibe/Simvastatin [Vytorin 10-80 mg Tablet] 1 each PO DAILY 04/10/13 Amlodipine Besylate [Norvasc] 10 mg PO DAILY AFTER SUPPER 10/27/14 Meloxicam [Mobic] 15 mg PO DAILY 10/27/14 sulfaSALAzine [AZULFIDINE EN-tabs] 500 mg PO DAILY 10/27/14 - Past Medical/Surgical History Diabetic: No -: hyperlipidemia -: VT -: arthritis -: depression -: left hip repair -: piedad knee sx -: cabg -: cardiac stents Psychosocial/ Personal History: Patient lives at home with his daughter. - Social History Smoking Status: Former smoker Alcohol use: No CD- Drugs: No Caffeine use: Yes Place of Residence: Home Review of Systems Gastrointestinal: Nausea Musculoskeletal: Other (hip pain) Neurological: As per HPI Physical Examination - Physical Exam General: Alert, In no apparent distress, Cachectic HEENT: Atraumatic, Sclerae nonicteric Neck: 2+ carotid pulse no bruit, No LAD, Without JVD or thyroid abnormality Respiratory: Clear to auscultation bilaterally, Normal air movement Cardiovascular: Regular rate/rhythm, Normal S1 S2 Gastrointestinal: Normal bowel sounds, No tenderness Musculoskeletal: No swelling, No contractures Integumentary: No rashes Neurological: Normal speech, Sensation intact, Normal affect - Studies Laboratory Data (last 24 hrs) 10/11/21 01:45: PT 11.4, INR 1.04 10/11/21 01:45: WBC 7.1, Hgb 13.4 L, Hct 39.8, Plt Count 153 10/11/21 01:45: Sodium 139, Potassium 3.2 L, BUN 17, Creatinine 1.57 H, Glucose 168 H, Magnesium 1.8 D, Total Bilirubin 0.7, AST 28, ALT 32, Alkaline Phosphatase 63 Assessment and Plan - Problems (Diagnosis) (1) Dizziness Current Visit: Yes Status: Acute (2) Near syncope Current Visit: Yes Status: Acute (3) Hypertension Current Visit: Yes Status: Acute Qualifiers: Hypertension type: primary hypertension Qualified Code(s): I10 - Essential (primary) hypertension (4) Hyperlipidemia Current Visit: No Status: Chronic Qualifiers: Hyperlipidemia type: unspecified Qualified Code(s): E78.5 - Hyperlipidemia, unspecified (5) Hypokalemia Current Visit: Yes Status: Acute (6) Recurrent falls Current Visit: Yes Status: Acute - Plan -gentle IV hydration -obtain orthostatic vitals as dizziness seems to occur when he stands up -zofran PRN nausea -patient was hypertensive in the ED. Hydralazine ordered PRN -replete potassium per protocol -neurology consulted -reconcile and continue home meds -Lovenox for VTE ppx -Full code Discharge Plan: Home Plan to discharge in: 24 Hours - Advance Directives Does patient have a Living Will: No Does patient have a Durable POA for Healthcare: Yes - Code Status/Comfort Care Code Status Assessed: Yes (Full) Critical Care: No Time Spent Managing Pts Care (In Minutes): 70
[2021-10-11] MEDS ORDERED: NA CHLORIDE 0.9% 1,000 ML ONE (06:39)
[2021-10-11] MEDS: NA CHLORIDE 0.9% 1,000 ML IV SCH ×3 (06:43→20:20)
[2021-10-11] MEDS: ENOXAPARIN 30 MG/0.3 ML SQ SCH (09:00)
[2021-10-11] MEDS ORDERED: ENOXAPARIN 30 MG/0.3 ML SQ ONE (09:38)
--- NOTE | 2021-10-11 11:48 | RAD REPORT ---
EXAM DESCRIPTION: RAD - Chest Single View - 10/11/2021 1:45 am CLINICAL HISTORY: The patient is 81 years old and is Male; Dizziness TECHNIQUE: Frontal view of the chest. COMPARISON: No relevant prior studies available. FINDINGS: Lungs: Mildly prominent interstitial markings. No consolidation. Pleural space: Unremarkable. No pneumothorax. Heart: Unremarkable. Mediastinum: Postsurgical changes in the mediastinum. Bones/joints: Old right rib fractures. IMPRESSION: Mildly prominent interstitial markings. No consolidation. Electronically signed by: Howard Carrasquillo MD 10/11/2021 1:57 AM CDT Due to temporary technical issues with the PACS/Fluency reporting system, reports are being signed by the in house radiologist without review as a courtesy to ensure prompt reporting. The interpreting r adiologist is fully responsible for the content of the report.
--- NOTE | 2021-10-11 11:54 | RAD REPORT ---
EXAM DESCRIPTION: CT - Head C Spine Mpr Wo Con - 10/11/2021 6:40 am CLINICAL HISTORY: Trauma COMPARISON: 12/25/2019 TECHNIQUE: Axial CT of the head obtained from the skull apex to the skull base without contrast. Axi al CT images of the cervical spine obtained from the skull base through the thoracic inlet. Sagittal and coronal reformatted images available. This exam was performed according to our departmental dose- optimization program, which includes automated exposure control, adjustment of the mA and/or kV accor ding to patient size and/or use of iterative reconstruction technique. FINDINGS: CT head: No acute intracranial hemorrhage identified. No mass, mass effect, shift of the midline, abnormal ext ra-axial fluid collection or CT evidence of acute ischemic change identified. Mild enlargement of the jugular system and sulcal spaces compatible with cerebral atrophy. Scattered areas of hypodensity in the supratentorial white matter are nonspecific and may represent sequela of chronic small vessel ischemic change. The visualized paranasal sinuses and the mastoids are clear. No skull fracture identified. Visual ized orbits and globes are unremarkable. Atherosclerotic calcification of the carotid and vertebral a rteries. Cervical CT: Alignment of the cervical spine is maintained without evidence of subluxation. The atlantoaxial, at lantodental, and occipitoatlantal intervals are preserved. No fracture identified. Stable appearanc e of T1 and T2 compatible with chronic compression fractures. Prevertebral soft tissues are unremar kable. Moderate to severe multilevel loss of intervertebral disc height with endplate spondylosis, facet art hropathy, and uncovertebral spurring. Posterior disc osteophyte complex at multiple levels encroach o n the anterior spinal canal as well as produce mild to moderate neural foraminal narrowing. Visualized skull base is intact. No fracture of the visualized facial bones. Visualized mastoid air c ells and paranasal sinuses are well aerated. Visualized thyroid is unremarkable. No cervical lymphadenopathy. No pneumothorax in the visualized lung apices. Carotid artery atherosclerosis. Carotid artery stent. IMPRESSION: 1. No acute intracranial abnormality. 2. No acute fracture or subluxation of the cervical spine. 3. Multilevel degenerative change of the cervical spine. Electronically signed by: Harshal Wallace 10/11/2021 2:41 AM CDT Due to temporary technical issues with the PACS/Fluency reporting system, reports are being signed by the in house radiologist without review as a courtesy to ensure prompt reporting. The interpreting r adiologist is fully responsible for the content of the report.
--- NOTE | 2021-10-11 17:19 | P.PN ---
Date of Service: 10/11/21 Patient is currently awake and alert. He has no complaint except dizziness. He reports dizziness especially with movement. Outpatient MRI result reviewed and reporting possible normal pressure hydrocephalus. 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 Diagnosis: Intractable dizziness. History of peripheral vascular disease Carotid artery disease status post carotid stent. Possible normal pressure hydrocephalus. Plan: Case discussed with neurology-Dr. Adair who recommended high-volume LP. Fluoroscopic guided LP ordered. CTA head and neck is preferable but serum creatinine is elevated. Will obtain carotid Doppler. Neurology to evaluate patient. Check orthostatic vitals.
[2021-10-11] MEDS ORDERED: POTASSIUM 25 MEQ EFFERV TAB PO ONE (17:30)
[2021-10-11 18:41] LABS: Urine Appearance Clear (Clear); Urine Bilirubin Negative (Negative); Urine Blood 1+ (Negative); Urine Color Yellow (Yellow); Urine Glucose Negative (Negative); Urine Protein 1+ (Negative); Urine pH 5.5 (5.0-7.0)
[2021-10-11 18:47] LABS: Urine Microscopic Reflex ORDER UMIC
[2021-10-11 18:48] LABS: Urine Bacteria <20 /HPF (NONE SEEN); Urine RBC <5 /HPF (NONE SEEN)
[2021-10-11] MEDS: ATORVASTATIN 40 MG TAB PO SCH (21:54)
[2021-10-11] MEDS: EZETIMIBE 10 MG TAB PO SCH (21:55)
[2021-10-12 04:14] LABS: Hematocrit 36.5 % (39.6-49.0); Lymphocytes % 18.5 % (15.3-44.8); MPV 8.8 fL (7.6-11.3); RBC Red Blood Cell Count 3.81 M/uL (4.33-5.43)
[2021-10-12 04:35] LABS: Albumin 3.2 g/dL (3.4-5.0); Bilirubin Total 0.6 mg/dL (0.2-1.0); Magnesium 1.9 mg/dL (1.8-2.4); Phosphorus 2.5 mg/dL (2.5-4.9); Protein, Total 6.2 g/dL (6.4-8.2)
[2021-10-12] MEDS: NA CHLORIDE 0.9% 1,000 ML IV SCH ×2 (04:54→09:40)
--- NOTE | 2021-10-12 07:53 | EKG ---
Test Date: 2021-10-11 Test Time: 01:31:23 Chief Unit Forester: LO MEASUREMENT RESULTS: Intervals: Rate: 76 [place]: QRSD: 98 QT: 454 QTc: 510 [place]: P: CA: QRS: 54 T: 26 INTERPRETIVE STATEMENTS: Accelerated Junctional rhythm ST elevation, consider anterior injury or acute infarct Prolonged QT ACUTE [place] / STEMI Abnormal ECG Compared to ECG 12/25/2019 17:41:38 Accelerated junctional rhythm now present Prolonged QT interval now present Myocardial infarct finding now present Sinus bradycardia no longer present Ventricular premature complex(es) no longer present Possible ischemia no longer present ST (T wave) deviation still present Electronically Signed On 10-12-21 07:50:39 CDT by Toni Jones
[2021-10-12] MEDS: ENOXAPARIN 30 MG/0.3 ML SQ SCH (08:48)
[2021-10-12] MEDS: CLOPIDOGREL 75 MG TABLET PO SCH (08:49)
[2021-10-12] MEDS: CITALOPRAM 10 MG TABLET PO SCH (08:49)
--- NOTE | 2021-10-12 13:01 | EKG ---
Test Date: 2021-10-11 Test Time: 01:32:03 Theology Professor: LO MEASUREMENT RESULTS: Intervals: Rate: 75 [place]: 200 QRSD: 96 QT: 462 QTc: 515 [place]: P: 63 [place]: 200 QRS: 70 T: 28 INTERPRETIVE STATEMENTS: Normal sinus rhythm Nonspecific ST abnormality Prolonged QT Abnormal ECG Compared to ECG 10/11/2021 01:31:23 Accelerated junctional rhythm no longer present Myocardial infarct finding no longer present ST (T wave) deviation still present Electronically Signed On 10-12-21 12:59:50 CDT by Toni Jones
[2021-10-12] MEDS: HYDRALAZINE HCL 20 MG/ML VIAL IV PRN ×2 (14:29→20:54)
[2021-10-12] MEDS: AMLODIPINE 10 MG TAB PO SCH (15:46)
--- NOTE | 2021-10-12 17:01 | P.PN ---
Subjective Date of Service: 10/12/21 Primary Care Provider: Jamie Chief Complaint: Dizziness, Near Syncope Patient complaining of intermittent dizziness. He is noted to be orthostatic. Physical Examination - Vital Signs Temperature: 97.3 F Blood Pressure: 164/70 Pulse: 50 Respirations: 16 Pulse Ox (%): 95 - Physical Exam General: Alert, In no apparent distress, Oriented x3 HEENT: Mucous membr. moist/pink, EOMI, Sclerae nonicteric Neck: Supple, JVD not distended Respiratory: Clear to auscultation bilaterally, Normal air movement Cardiovascular: No edema, Regular rate/rhythm, Normal S1 S2 Gastrointestinal: Normal bowel sounds, Soft and benign, Non-distended, No tenderness Musculoskeletal: No swelling Integumentary: No rashes, No cyanosis Neurological: Normal speech, Normal strength at 5/5 x4 extr, Cranial nerves 3-12 intact Assessment And Plan - Current Problems (Diagnosis) (1) Dizziness Current Visit: Yes Status: Acute (2) Hypertension Current Visit: Yes Status: Acute Qualifiers: Hypertension type: primary hypertension Qualified Code(s): I10 - Essential (primary) hypertension (3) Near syncope Current Visit: Yes Status: Acute (4) Recurrent falls Current Visit: Yes Status: Acute (5) Hyperlipidemia Current Visit: No Status: Chronic Qualifiers: Hyperlipidemia type: unspecified Qualified Code(s): E78.5 - Hyperlipidemia, unspecified (6) Orthostasis Current Visit: Yes Status: Acute - Plan MRI of the brain done in an outside facility result reviewed and reporting dilated cerebral ventricles suggestive of normal pressure hydrocephalus. Patient with a history of carotid artery disease status post stent. Also noted to be orthostatic. Patient noted to have gait instability and left extremities tremor. Case discussed with Dr. Adair who recommend diagnostic LP for normal pressure hydrocephalus. Fluoroscopic guided LP requested. Procedure explained to family. Patient is hypertensive and bradycardic. Metoprolol on hold due to bradycardia and replaced with amlodipine for blood pressure control. Obtain carotid Doppler given history of carotid artery disease. There is a report patient has a positive titer for DAO. Serum creatinine is elevated and precludes CTA head and neck to assess for vasculitis. MRI of the brain results reviewed with Dr. Adair. Chronic ischemic changes noted in the cerebellum which may be playing a major role in his dizziness though patient is also orthostatic and expect dizziness with change in position to standing. Continue other home medications. PT is recommending inpatient rehab which is appropriate. Social service consulted to assist with arrangement for inpatient rehab. Patient complaining of pain in the lower back-around the iliac crest area. He has a history of multiple surgeries in the pelvic bone and the left hip. X-ray of the pelvis requested to rule out fracture. Pain management as needed. Continue PT. Monitor BP and titrate medications for BP control.
[2021-10-12] MEDS ORDERED: TRAMADOL HCL 50 MG TAB PO PRN (17:08)
--- NOTE | 2021-10-12 18:10 | RAD REPORT ---
EXAM DESCRIPTION: RAD - Pelvis - 10/12/2021 5:34 pm CLINICAL HISTORY: fall with hip pain COMPARISON: Pelvis Wo Cont dated 12/31/2020 FINDINGS/IMPRESSION: Cannulated screws traverse the sacroiliac joints. Left hip arthroplasty. No paula dence of hardware complications though the hardware is only partially imaged. Osteopenia.
[2021-10-12] MEDS ORDERED: DOCUSATE NA/SENNA CONC 1 TAB PO PRN (20:44)
[2021-10-12] MEDS: EZETIMIBE 10 MG TAB PO SCH (20:53)
[2021-10-12] MEDS: ATORVASTATIN 40 MG TAB PO SCH (20:53)
[2021-10-12] MEDS: ONDANSETRON 4 MG/2 ML VIAL IV PRN (22:05)
[2021-10-12] MEDS ORDERED: PROMETHAZINE INJ 25 MG/ML AMP IV ONE (22:45)
[2021-10-12] MEDS ORDERED: PROMETHAZINE INJ 25 MG/ML AMP ONE (22:47)
[2021-10-13 00:09] VITALS: O2SAT 97
[2021-10-13 06:22] LABS: Potassium 3.7 mmol/L (3.5-5.1)
--- NOTE | 2021-10-13 08:03 | RAD REPORT ---
EXAM DESCRIPTION: US - CP - 10/13/2021 5:34 am CLINICAL HISTORY: Carotid artery disease COMPARISON: Head C Spine Mpr Wo Con dated 10/11/2021 TECHNIQUE: Real-time sonographic evaluation of both carotid systems was performed. Doppler interroga tion was performed with waveform tracing bilaterally. FINDINGS: Elevated velocities are present within the external carotid arteries. The common carotid a rteries and internal carotid arteries show normal low resistance waveforms. Right ICA stent. Extensive hard plaque in at the carotid bulbs and at the external carotid arteries. Mixed soft and berg rd plaque in the common carotid arteries bilaterally. Peak systolic and end diastolic velocity values and the ICA/CCA ratios are in the non-hemodynamically significant range. Antegrade flow seen in both vertebral arteries. IMPRESSION: Severe stenoses of the external carotid arteries bilaterally. No flow limiting stenosis involving either the common carotid or internal carotid arteries bilaterally. Patent right ICA stent.
[2021-10-13 08:20] VITALS: BMI 23.0
[2021-10-13] MEDS ORDERED: POTASSIUM CL SA 10 MEQ TAB PO ONE (09:00)
[2021-10-13] MEDS: CLOPIDOGREL 75 MG TABLET PO SCH (09:00)
[2021-10-13] MEDS: ENOXAPARIN 30 MG/0.3 ML SQ SCH (09:43)
[2021-10-13] MEDS: CITALOPRAM 10 MG TABLET PO SCH (09:44)
[2021-10-13] MEDS: AMLODIPINE 10 MG TAB PO SCH (09:44)
--- NOTE | 2021-10-13 12:12 | P.PN ---
Subjective Date of Service: 10/13/21 Primary Care Provider: Jamie Chief Complaint: Dizziness, Near Syncope Spouse reports patient had an episode of nausea and vomiting, followed by delirium and incontinence after he was given Phenergan last night. He was alert and oriented during my encounter this morning. Physical Examination - Vital Signs Temperature: 97.5 F Blood Pressure: 136/57 Pulse: 69 Respirations: 18 Pulse Ox (%): 96 Assessment And Plan - Current Problems (Diagnosis) (1) Dizziness Current Visit: Yes Status: Acute (2) Hypertension Current Visit: Yes Status: Acute Qualifiers: Hypertension type: primary hypertension Qualified Code(s): I10 - Essential (primary) hypertension (3) Near syncope Current Visit: Yes Status: Acute (4) Recurrent falls Current Visit: Yes Status: Acute (5) Hyperlipidemia Current Visit: No Status: Chronic Qualifiers: Hyperlipidemia type: unspecified Qualified Code(s): E78.5 - Hyperlipidemia, unspecified (6) Orthostasis Current Visit: Yes Status: Acute (7) Delirium Current Visit: Yes Status: Acute - Plan MRI of the brain done in an outside facility result reviewed and reporting dilated cerebral ventricles suggestive of normal pressure hydrocephalus. Patient with a history of carotid artery disease status post stent. Also noted to be orthostatic. Patient noted to have gait instability and left extremities tremor. Case discussed with Dr. Adair who recommend diagnostic LP for normal pressure hydrocephalus. Fluoroscopic guided LP requested. Lumbar puncture canceled. Patient has been on Plavix which needs to be held for 5 to 7 days before her lumbar puncture. No radiologist in-house to perform the LP today. Patient is hypertensive and bradycardic. History of abdominal aortic aneurysm so will need aggressive blood pressure control Metoprolol on hold due to bradycardia and replaced with amlodipine for blood pr essure control. Labetalol as needed for BP spikes Carotid Doppler demonstrating severe bilateral external carotid artery stenosis, intact bilateral internal carotid artery, and patent carotid artery stent. There is a report patient has a positive titer for DAO. Serum creatinine is elevated and precludes CTA head and neck to assess for vasculitis. MRI of the brain results reviewed with Dr. Adair. Chronic ischemic changes noted in the cerebellum which may be playing a major role in his dizziness though patient is also orthostatic and expect dizziness with change in position to standing. Continue other home medications. Pelvic x-ray: No acute fracture. Overnight delirium likely secondary to anticholinergic effect of promethazine. Delirium resolved. Avoid anticholinergic agents. Pain management as needed. Stool softeners and laxatives for constipation. PT is recommending inpatient rehab which is appropriate. Family looking at [facility]. Awaiting insurance authorization. Continue PT.
[2021-10-13] MEDS: HYDRALAZINE HCL 20 MG/ML VIAL IV PRN (13:12)
[2021-10-13] MEDS: POLYETHYL GLY 3350 17 GM/DOSE PO SCH (21:04)
[2021-10-13] MEDS: EZETIMIBE 10 MG TAB PO SCH (21:05)
[2021-10-13] MEDS: ATORVASTATIN 40 MG TAB PO SCH (21:05)
[2021-10-14 04:34] LABS: Potassium 3.9 mmol/L (3.5-5.1)
[2021-10-14] MEDS: CLOPIDOGREL 75 MG TABLET PO SCH (09:00)
[2021-10-14] MEDS ORDERED: METOPROLOL TAR 50 MG TAB PO SCH (10:10)
[2021-10-14] MEDS: POLYETHYL GLY 3350 17 GM/DOSE PO SCH ×2 (10:40→21:00)
[2021-10-14] MEDS: CITALOPRAM 10 MG TABLET PO SCH (10:40)
[2021-10-14] MEDS: AMLODIPINE 10 MG TAB PO SCH (10:40)
[2021-10-14] MEDS: ENOXAPARIN 30 MG/0.3 ML SQ SCH (10:48)
[2021-10-14] MEDS ORDERED: MAGNESIUM CITRATE 300 ML BOT PO SCH ×2 (11:00→12:00)
[2021-10-14] MEDS: PANTOPRAZOLE 40MG TABLET PO SCH (12:21)
--- NOTE | 2021-10-14 15:45 | RAD REPORT ---
EXAM DESCRIPTION: MRI - Brain Wo Cont - 10/14/2021 3:36 pm CLINICAL HISTORY: Left hand tremor Headache, drowsiness, CVA symptomology COMPARISON: Head Brain Wo Cont dated 06/11/2017 TECHNIQUE: Multi-sequence, multiplanar MR imaging of the brain was performed without contrast. FINDINGS: No intracranial hemorrhage, hydrocephalus or extra-axial fluid collections.Generalized bra in atrophy is seen with moderate periventricular and deep white matter chronic microvascular ischemic changes. No edema or shift of midline structures. No findings to suspect brain mass. There is a larg e acute CVA identified left cerebellar hemisphere anteriorly measuring 4.5 x 5.0 cm. No hemorrhage is evident. Midline structures are normally formed. Mastoid air cells and paranasal sinuses are clear. IMPRESSION: Large, nonhemorrhagic acute CVA is seen superior left cerebellar hemisphere.
[2021-10-14] MEDS: HYDRALAZINE HCL 20 MG/ML VIAL IV PRN (16:07)
[2021-10-14] MEDS ORDERED: LABETALOL 20 MG/4ML SYRINGE IV PRN (17:26)
--- NOTE | 2021-10-14 17:59 | P.PN ---
Subjective Date of Service: 10/14/21 Primary Care Provider: Jamie Chief Complaint: Dizziness, Near Syncope It appears patient's tremor is getting worse. Last night was uneventful. He is complaining of constipation. No BM for 5 days. Blood pressure readings are elevated today. Physical Examination - Vital Signs Temperature: 97.5 F Blood Pressure: 171/69 Pulse: 62 Respirations: 16 Pulse Ox (%): 96 - Physical Exam General: Alert, In no apparent distress HEENT: Mucous membr. moist/pink, EOMI Neck: JVD not distended Respiratory: Clear to auscultation bilaterally, Normal air movement Cardiovascular: No edema, Regular rate/rhythm, Normal S1 S2 Gastrointestinal: Normal bowel sounds, Soft and benign, Non-distended, No tenderness Musculoskeletal: No swelling, No tenderness Integumentary: No rashes, No cyanosis Neurological: Other (Tremors and incoordination in the left hand,), Abnormal g ait Assessment And Plan - Current Problems (Diagnosis) (1) Dizziness Current Visit: Yes Status: Acute (2) Hypertension Current Visit: Yes Status: Acute Qualifiers: Hypertension type: primary hypertension Qualified Code(s): I10 - Essential (primary) hypertension (3) Near syncope Current Visit: Yes Status: Acute (4) Recurrent falls Current Visit: Yes Status: Acute (5) Hyperlipidemia Current Visit: No Status: Chronic Qualifiers: Hyperlipidemia type: unspecified Qualified Code(s): E78.5 - Hyperlipidemia, unspecified (6) Orthostasis Current Visit: Yes Status: Acute (7) Delirium Current Visit: Yes Status: Acute - Plan MRI of the brain done in an outside facility result reviewed and reporting dilated cerebral ventricles suggestive of normal pressure hydrocephalus. Patient with a history of carotid artery disease status post stent. Also noted to be orthostatic. Patient noted to have gait instability left extremities tremor and incoordination. Fluoroscopic guided LP as initially recommended by Dr. Fournier was canceled due to recent antiplatelet use. Seen by Dr. Adair today. MRI of the brain done per Dr. Adair's recomm endation shows large left cerebellar stroke which is likely the cause of patient's multiple falls, incoordination and tremors. Patient had been on Plavix. Aspirin added. He is also on Lipitor and Zetia for hyperlipidemia. Check lipid profile. Patient is hypertensive. He has bradycardia has improved. History of abdominal aortic aneurysm so will need aggressive blood pressure control, on the other hand he also needs permissive hypertension for new CVA. Case discussed with Dr. Adair. He recommend to keep systolic blood pressure around 140. Continue amlodipine. Metoprolol 50 mg added this morning and dose increased to twice daily. Labetalol as needed for BP spikes. Avoid hydralazine given history of aortic aneurysm Carotid Doppler demonstrating severe bilateral external carotid artery stenosis, intact bilateral internal carotid artery, and patent carotid artery stent. There is a report patient has a positive titer for DAO. Serum creatinine is improving. Will hydrate with IV normal saline, check renal function in a.m. and obtain CTA head and neck if her creatinine level improved with hydration. Continue to monitor orthostatic vitals. Continue other home medications. Pelvic x-ray: No acute fracture. Overnight delirium likely secondary to anticholinergic effect of promethazine. Delirium resolved. Avoid anticholinergic agents. May use Haldol as needed. Pain management as needed. Patient have not had bowel movement despite being on multiple stool softeners and laxatives. No response to mag citrate. Trial of Dulcolax suppository today. Patient accepted to [facility] but need to stabilize his blood pressure and treat constipation before transfer.
[2021-10-14] MEDS ORDERED: BISACODYL 10 MG RECTAL SUPP PR ONE (18:00)
[2021-10-14] MEDS: NA CHLORIDE 0.9% 1,000 ML IV SCH (18:14)
[2021-10-14] MEDS: ASPIRIN EC 81 MG TAB PO SCH (18:14)
[2021-10-14] MEDS: ONDANSETRON 4 MG/2 ML VIAL IV PRN (21:43)
[2021-10-14] MEDS ORDERED: FAMOTIDINE 20 MG TAB PO PRN (21:43)
[2021-10-14] MEDS: METOPROLOL TAR 50 MG TAB PO SCH (21:44)
[2021-10-14] MEDS: ATORVASTATIN 40 MG TAB PO SCH (21:44)
[2021-10-14] MEDS: ACETAMINOPHEN 500 MG TAB PO PRN (21:44)
[2021-10-14] MEDS: EZETIMIBE 10 MG TAB PO SCH (21:56)
--- NOTE | 2021-10-15 00:06 | CON ---
Reason For Consultation: Consultation called because of dizziness. History Of Present Illness: Mr. Webb is an 81-year-old right-handed patient with hyperten leonor, dyslipidemia, and prostate cancer in addition to possible normal-pressure hydrocephalus from MR I of the brain done about 1 year ago and a chronic small stroke in the cerebellum, again about 1 year old. His notes he was in his baseline until earlier this week around Sunday when he began havi ng more difficulty with his balance, his gait, and coordination and tended to fall and may fall to th e left. After a fall, he was brought to [facility] where his head CT scan was negative for any acute ischemic or hemorrhagic change. He did have some hypokalemia. He was admitted for further workup. Today is the first day I have seen the patient and in my evaluation, he had a significant l eft upper and lower extremity findings consistent with cerebellar dysfunction. He had dysmetria and finger to nose and heel to traore on the left and not so noted on the right. He had good strength on b oth left and right upper and lower extremities. In addition, some nystagmus on moving the eyes horiz ontally. A brain MRI was ordered immediately and we identified a large nonhemorrhagic acute left cer ebellar hemispheric stroke measuring 4.5 x 5 cm. There was no hemorrhagic conversion. The [facility] was notified and the patient and his as well. Carotid artery ultrasound did show severe sten osis of the external carotid arteries bilaterally with no flow limiting stenosis in either common car otid or internal carotid arteries. There is a patent right internal carotid artery stent. He did berg ve a head and cervical spine CT scan done earlier, which showed multilevel degenerative changes with posterior disk osteophyte complex at multiple levels encroaching on the anterior spinal canal produci ng [id number] neural foraminal narrowing. Past Medical History: As noted, in addition to dyslipidemia, myocardial infarction, arthritis, and d epression. Past Surgical History: Left hip repair, bilateral knee surgery, coronary artery bypass grafting, and cardiac stents along with carotid stent. Social History: The patient lives at home with his daughter. No alcohol, tobacco, or IV drug use. Allergies: NO KNOWN DRUG ALLERGIES. Medications: At home are aspirin 81 mg daily, citalopram 200 mg daily, Plavix 75 mg daily, Vytorin 1 0/80 daily, Norvasc 10 mg daily, Mobic 15 mg daily, and sulfasalazine 500 mg daily. Review of Systems: As noted, he has unsteady gait, tendency to fall to the left, nausea and no fevers or chills. No kevin lgias. Mild arthralgias. Physical Examination: Vital Signs: Blood pressure 171/69, pulse 62, respiratory rate 16, temperature 97.5, oxygen saturati on 96% on room air. Height 5 feet 11 inches, weight 165 pounds, BMI 23. General: Mr. Webb is resting in bed. He is in no significant distress. HEENT: He is normocephalic, atraumatic. Sclerae anicteric. Oropharynx pink and moist. Neck: Supple. Chest: Clear. Heart: Regular. Extremities: No significant clubbing, cyanosis, or edema. Neurologic: He is alert and oriented to situation, place, and person. On cranial nerve examination, he has full visual ojeda to confrontation. Pupils are round and reactive to light and accommodatio n. Extraocular movements are intact with horizontal nystagmus noted bilaterally. Cranial nerves oth erwise show mild dysarthria and no expressive or receptive aphasias. Cranial nerves otherwise intact . On motor examination, he has increased tone in left upper and lower extremities as well as in the right upper and lower extremities. Strength is 5/5 proximally and distally. On coordination, he has dysmetria noted in the left upper and lower extremities with finger to nose and heel to traore and robbin t is moderate in both upper and lower extremities on the left and on the right side intact. Sensory exam intact in the left and right upper and lower extremities. Gait with tendency to fall to the lef t with ambulation. NIH Stroke Scale of 4. Laboratory Studies: Complete blood count with differential, white blood cell count 5.4, hemoglobin 1 2.5. INR 1.04. Chemistries: Sodium 135, potassium 3.9, creatinine 1.36, glucose ranged 105-139, ca lcium 9.0, magnesium 1.9. ALT, AST, alkaline phosphatase are all normal. Urinalysis unremarkable. Assessment: Mr. Webb is an 81-year-old patient with acute stroke that likely occurred a few days ag o, perhaps on Sunday, causing his cerebellar dysfunction. He has possible normal-pressure hydrocepha caroline seen by scan a year ago and today. Plan: 1.I will hold a lumbar puncture given the acute stroke. 2.He will require aggressive acute inpatient rehabilitation for stroke and aspirin and Plavix along with folic acid and statin. His lipid panel will be drawn. The patient is likely going to [facility] once his blood pressures can be managed with systolics around 140s or 130s. LB/MODL Voice ID: [id number] Report ID: [id number]
[2021-10-15] MEDS: ACETAMINOPHEN 500 MG TAB PO PRN (02:55)
[2021-10-15] MEDS: NA CHLORIDE 0.9% 1,000 ML IV SCH (04:00)
[2021-10-15] MEDS: ONDANSETRON 4 MG/2 ML VIAL IV PRN (05:11)
[2021-10-15 06:36] LABS: Absolute Lymphocytes (CBC) 0.6 K/uL (0.7-4.9); Hematocrit 37.8 % (39.6-49.0); Lymphocytes % 12.6 % (15.3-44.8); MPV 8.4 fL (7.6-11.3)
[2021-10-15 06:50] LABS: Potassium 3.9 mmol/L (3.5-5.1)
[2021-10-15] MEDS: ENOXAPARIN 30 MG/0.3 ML SQ SCH ×2 (09:00→09:28)
[2021-10-15] MEDS: ASPIRIN EC 81 MG TAB PO SCH (09:01)
[2021-10-15] MEDS: AMLODIPINE 10 MG TAB PO SCH (09:01)
[2021-10-15] MEDS: CITALOPRAM 10 MG TABLET PO SCH (09:01)
[2021-10-15] MEDS: METOPROLOL TAR 50 MG TAB PO SCH ×2 (09:02→21:54)
[2021-10-15] MEDS: CLOPIDOGREL 75 MG TABLET PO SCH (09:12)
--- NOTE | 2021-10-15 18:53 | P.PN ---
Subjective Date of Service: 10/15/21 Primary Care Provider: Jamie Chief Complaint: Dizziness, Near Syncope Patient had an uneventful night except an episode of tremors. He reports good sleep. He had a small soft bowel movement after the Dulcolax suppository was administered. Blood pressure readings have improved today. Physical Examination - Vital Signs Temperature: 97.2 F Blood Pressure: 129/63 Pulse: 53 Respirations: 16 Pulse Ox (%): 96 - Physical Exam General: Alert, In no apparent distress, Oriented x3 Neck: JVD not distended Respiratory: Other (Nonlabored breathing) Cardiovascular: No edema, Regular rate/rhythm Gastrointestinal: Soft and benign, Non-distended Musculoskeletal: No swelling Integumentary: No cyanosis Neurological: Normal strength at 5/5 x4 extr, Other (Abnormal coordination and tremors more pronounced in the left extremities) Assessment And Plan - Current Problems (Diagnosis) (1) Dizziness Current Visit: Yes Status: Acute (2) Hypertension Current Visit: Yes Status: Acute Qualifiers: Hypertension type: primary hypertension Qualified Code(s): I10 - Essential (primary) hypertension (3) Near syncope Current Visit: Yes Status: Acute (4) Recurrent falls Current Visit: Yes Status: Acute (5) Hyperlipidemia Current Visit: No Status: Chronic Qualifiers: Hyperlipidemia type: unspecified Qualified Code(s): E78.5 - Hyperlipidemia, unspecified (6) Orthostasis Current Visit: Yes Status: Acute (7) Delirium Current Visit: Yes Status: Acute - Plan MRI of the brain done in an outside facility result reviewed and reporting dilated cerebral ventricles suggestive of normal pressure hydrocephalus. Patient with a history of carotid artery disease status post stent. Also noted to be orthostatic. Patient noted to have gait instability left extremities tremor and incoordination. Fluoroscopic guided LP as initially recommended by Dr. Fournier was canceled due to recent antiplatelet use. We will need to postpone LP for NPH evaluation given acute CVA. Seen by Dr. Adair today. MRI of the brain done per Dr. Adair's natanael mmendation shows large left cerebellar stroke which is likely the cause of patient's multiple falls, incoordination and tremors. Patient had been on Plavix. Aspirin added. Not a candidate for tPA He is also on Lipitor and Zetia for hyperlipidemia. Lipid profile shows LDL of 98. Needed target of less than 70. Increase Lipitor dose. Patient is hypertensive. He has bradycardia has improved. History of abdominal aortic aneurysm so will need aggressive blood pressure control, on the other hand he also needs permissive hypertension for new CVA. Case discussed with Dr. Adair. He recommend to keep systolic blood pressure around 140. Patient is currently normotensive. Continue amlodipine and metoprolol 50 mg twice daily. Labetalol as needed for BP spikes. Avoid hydralazine given history of aortic aneurysm Carotid Doppler demonstrating severe bilateral external carotid artery stenosis, intact bilateral internal carotid artery, and patent carotid artery stent. There is a report patient has a positive titer for DAO. Serum creatinine level did not change with IV hydration. We will discontinue IV fluid. Continue other home medications. Pelvic x-ray: No acute fracture. Overnight delirium likely secondary to anticholinergic effect of promethazine. Delirium resolved. Avoid anticholinergic agents. Pain management as needed. Patient had a bowel movement today. Patient accepted to [facility] but spouse is requesting for transfer to [facility] for another opinion regarding management. An attempt was made to transfer him today but there was no bed availability.
[2021-10-15] MEDS: ATORVASTATIN 40 MG TAB PO SCH (21:53)
[2021-10-15] MEDS: EZETIMIBE 10 MG TAB PO SCH (21:54)
[2021-10-16] MEDS: ACETAMINOPHEN 500 MG TAB PO PRN (04:08)
[2021-10-16] MEDS ORDERED: POTASSIUM 25 MEQ EFFERV TAB PO ONE (07:59)
[2021-10-16] MEDS: ENOXAPARIN 30 MG/0.3 ML SQ SCH (08:47)
[2021-10-16] MEDS: AMLODIPINE 10 MG TAB PO SCH (08:49)
[2021-10-16] MEDS: CITALOPRAM 10 MG TABLET PO SCH (08:49)
[2021-10-16] MEDS: CLOPIDOGREL 75 MG TABLET PO SCH (08:50)
[2021-10-16] MEDS: ASPIRIN EC 81 MG TAB PO SCH (08:50)
[2021-10-16] MEDS: METOPROLOL TAR 50 MG TAB PO SCH ×2 (08:50→21:00)
--- NOTE | 2021-10-16 15:44 | P.PN ---
Subjective Date of Service: 10/16/21 Primary Care Provider: Jamie Chief Complaint: Dizziness, Near Syncope Patient has no new complaint today. Spouse feels his tremors and confusion have gotten better over the last couple of days. He had a good bowel movement yesterday. Systolic blood pressure in the 140s today. Physical Examination - Vital Signs Temperature: 96.4 F Blood Pressure: 141/52 Pulse: 50 Respirations: 16 Pulse Ox (%): 96 - Physical Exam General: Alert, In no apparent distress, Oriented x3 HEENT: Mucous membr. moist/pink, Sclerae nonicteric Neck: JVD not distended Respiratory: Clear to auscultation bilaterally, Normal air movement Cardiovascular: No edema, Regular rate/rhythm, Normal S1 S2 Gastrointestinal: Soft and benign, Non-distended, No tenderness Musculoskeletal: No swelling Integumentary: No rashes, No cyanosis Neurological: Normal strength at 5/5 x4 extr, Other (Tremors of the hand-more pronounced in the left extremity.) Assessment And Plan - Current Problems (Diagnosis) (1) Dizziness Current Visit: Yes Status: Acute (2) Hypertension Current Visit: Yes Status: Acute Qualifiers: Hypertension type: primary hypertension Qualified Code(s): I10 - Essential (primary) hypertension (3) Near syncope Current Visit: Yes Status: Acute (4) Recurrent falls Current Visit: Yes Status: Acute (5) Hyperlipidemia Current Visit: No Status: Chronic Qualifiers: Hyperlipidemia type: unspecified Qualified Code(s): E78.5 - Hyperlipidemia, unspecified (6) Orthostasis Current Visit: Yes Status: Acute (7) Delirium Current Visit: Yes Status: Acute - Plan MRI of the brain done in an outside facility result reviewed and reporting dilated cerebral ventricles suggestive of normal pressure hydrocephalus. Patient with a history of carotid artery disease status post stent. Also noted to be orthostatic. Patient noted to have gait instability left extremities tremor and incoordination. Fluoroscopic guided LP as initially recommended by Dr. Fournier was canceled due to recent antiplatelet use. We will need to postpone LP for NPH evaluation given acute CVA. Seen by Dr. Adair today. MRI of the brain done per Dr. Adair's recommendation shows large left cerebellar stroke which is likely the cause of patient's multiple falls, incoordination and tremors. Patient had been on Plavix. Aspirin added. Not a candidate for tPA He is also on Lipitor and Zetia for hyperlipidemia. Lipid profile shows LDL of 98. Needed target of less than 70. Lipitor dose increased to 80 mg at bedtime Patient is hypertensive. He has bradycardia has improved. History of abdominal aortic aneurysm so will need aggressive blood pressure control, on the other hand he also needs permissive hypertension for new CVA. Case discussed with Dr. Adair. He recommend to keep systolic blood pressure around 140. Systolic blood pressure is in the 140s today. Continue amlodipine and metoprolol 50 mg twice daily. Labetalol as needed for BP spikes. Avoid hydralazine given history of aortic aneurysm Carotid Doppler demonstrating severe bilateral external carotid artery stenosis, intact bilateral internal carotid artery, and patent carotid artery stent. There is a report patient has a positive titer for DAO. Serum creatinine level did not change with IV hydration. We will discontinue IV fluid. We will discussed with Dr. Adair for need for MRA without contrast. Continue other home medications. Pelvic x-ray: No acute fracture. Recent delirium likely secondary to anticholinergic effect of promethazine. Delirium resolved. Avoid anticholinergic agents. Pain management as needed. Stool softeners as needed. Patient accepted to [facility] but spouse is requesting for transfer to [facility] for another opinion regarding management. An attempt was made to transfer him today but there was no bed availability.
[2021-10-16] MEDS ORDERED: ATORVASTATIN 80 MG TAB PO SCH (21:00)
[2021-10-16] MEDS: EZETIMIBE 10 MG TAB PO SCH (21:02)
[2021-10-17 03:54] LABS: Absolute Lymphocytes (CBC) 1.2 K/uL (0.7-4.9); Hematocrit 36.7 % (39.6-49.0); Lymphocytes % 20.8 % (15.3-44.8); MPV 8.8 fL (7.6-11.3); RBC Red Blood Cell Count 3.88 M/uL (4.33-5.43)
[2021-10-17 04:09] LABS: Potassium 3.9 mmol/L (3.5-5.1)
[2021-10-17] MEDS ORDERED: POTASSIUM 25 MEQ EFFERV TAB PO ONE (07:53)
[2021-10-17] MEDS ORDERED: ENOXAPARIN 40 MG/0.4 ML SQ SCH (09:00)
[2021-10-17] MEDS: CLOPIDOGREL 75 MG TABLET PO SCH (09:28)
[2021-10-17] MEDS: ASPIRIN EC 81 MG TAB PO SCH (09:28)
[2021-10-17] MEDS: PANTOPRAZOLE 40MG TABLET PO SCH (09:28)
[2021-10-17] MEDS: CITALOPRAM 10 MG TABLET PO SCH (09:29)
[2021-10-17] MEDS: AMLODIPINE 10 MG TAB PO SCH (09:29)
[2021-10-17] MEDS: METOPROLOL TAR 50 MG TAB PO SCH (09:31)
--- NOTE | 2021-10-17 11:52 | RAD REPORT ---
EXAM DESCRIPTION: MRI - MRA Head Wo Cont - 10/17/2021 11:30 am CLINICAL HISTORY: Acute Cerebella stroke CVA COMPARISON: Brain Wo Cont dated 10/14/2021; Carotid Artery Bilateral dated 10/13/2021 FINDINGS: 3D noncontrast [id number] MR angiography of the [place] was performed. Examination is motion degraded. A large vessel occlusion is not detected. No aneurysm or vascular malformation suspected. The left vertebral artery is diminutive in size with right-sided vertebral artery appearing dominant. Stenosis of distal left vertebral artery is likely present. IMPRESSION: Significant motion degradation is present on the examination, limiting quality of the st udy. Diminished flow is seen within the left distal vertebral artery likely related to stenoses. No l arge vessel occlusion evident intracranially.
--- NOTE | 2021-10-17 11:59 | RAD REPORT ---
EXAM DESCRIPTION: MRI - MRA Neck W/Wo Cont - 10/17/2021 11:30 am CLINICAL HISTORY: Acute Cerebella stroke CVA COMPARISON: Carotid Artery Bilateral dated 10/13/2021 FINDINGS: Contrast enhance 2D [id number] MR angiography of the neck vessels was performed. A left aortic arch is present. There is moderate narrowing of the left carotid bulb noted estimated a t 50-70% based on NASCET criteria. Proximal right ICA is nonvisualized due to the presence of a stent. The remainder of the right-sided ICA appears patent. The right vertebral artery appears dominant. There is diminished flow in the left vertebral system. IMPRESSION: 50-70% stenosis left carotid bulb.
[2021-10-17 13:06] VITALS: BP 164/72; TEMP 97.5
--- NOTE | 2021-10-17 13:39 | P.DS ---
Admission Date: 10/12/21 Discharge Date: 10/17/21 Primary Care Provider: Jamie Disposition: TRANSFER TO INPATIENT REHAB Discharge Condition: FAIR Reason for Admission: Dizziness, Near Syncope - Problems (1) Dizziness Current Visit: Yes Status: Acute (2) Hypertension Current Visit: Yes Status: Acute Qualifiers: Hypertension type: primary hypertension Qualified Code(s): I10 - Essential (primary) hypertension (3) Near syncope Current Visit: Yes Status: Acute (4) Recurrent falls Current Visit: Yes Status: Acute (5) Hyperlipidemia Current Visit: No Status: Chronic Qualifiers: Hyperlipidemia type: unspecified Qualified Code(s): E78.5 - Hyperlipidemia, unspecified (6) Orthostasis Current Visit: Yes Status: Acute (7) Delirium Current Visit: Yes Status: Acute Brief History of Present Illness: Patient is an 81-year-old male with past medical history of hyperlipidemia, hypertension, prostate cancer, and dizziness of unknown origin who presented to the ED via EMS after a fall. Per patient's family, patient has been falling a lot recently. He has been undergoing a work-up for dizziness without a definitive diagnosis. Vertigo has been ruled out by ENT. Family stated that patient got up to use the restroom and became dizzy and fell. She is unsure if he hit his head or loss consciousness. Upon arrival to the ED, patient was complaining of dizziness and nausea. CT head negative and chest x-ray negative. Labs significant for potassium 3.2, creatinine 1.57, BNP 1000. Patient admitted for further management. Hospital Course: MRI of the brain done in an outside facility result reviewed and reporting dilated cerebral ventricles suggestive of normal pressure hydrocephalus. Patient with a history of carotid artery disease status post stent. Also noted to be orthostatic. Patient noted to have gait instability left extremities tremor and incoordination. Fluoroscopic guided LP was initially recommended by Dr. Adair canceled due to recent antiplatelet use. Diagnostic LP for NPH postponed to be done as an outpatient given acute CVA. Seen by Dr. Adair. MRI of the brain done per Dr. Adair's recommendation showed large left cerebellar stroke which is likely the cause of patient's multiple falls, incoordination and tremors. Patient had been on Plavix. Aspirin added. Not a candidate for tPA He is also on Lipitor and Zetia for hyperlipidemia. Lipid profile showed LDL of 98. Needed target of less than 70. Lipitor dose increased to 80 mg at bedtime Patient was hypertensive. He was bradycardia as well. History of abdominal aortic aneurysm so will need aggressive blood pressure control, on the other hand he also needed permissive hypertension for new CVA. Amlodipine added to metoprolol to keep his systolic blood pressure around 140. Labetalol as needed for BP spikes. Carotid Doppler demonstrated severe bilateral external carotid artery stenosis, intact bilateral internal carotid artery, and patent carotid artery stent. There is a report patient has a positive titer for DAO. Serum creatinine level did not change with IV hydration. CTA head and neck could not be done due to renal insufficiency. MRA of the brain and neck was done which demonstrated diminutive left vertebral artery, right vertebral artery dominance and likelihood of distal left vertebral artery stenosis. Patient and his spouse have plans to follow-up with his neurologist as soon as possible. He may need outpatient four-vessel cerebral angiogram. He was complaining of pain in the right pelvic crest area but pelvic x-ray showed no acute fracture. He developed delirium likely secondary to anticholinergic effect of promethazine. Delirium resolved within 24 hours. We avoid anticholinergic agents. His pain was treated with tramadol He was also complaining of constipation which was successfully treated with stool softeners-docusate/senna and magnesium citrate Patient accepted to [facility]. He is clinically stable for transfer. Vital Signs/Physical Exam: Temp Pulse Resp BP Pulse Ox 97.5 F 54 16 164/72 H 98 10/17/21 12:00 10/17/21 12:00 10/17/21 12:00 10/17/21 12:00 10/17/21 12:00 General: Alert, In no apparent distress, Oriented x2 HEENT: Mucous membr. moist/pink Neck: JVD not distended Respiratory: Clear to auscultation bilaterally, Normal air movement Cardiovascular: No edema, Normal pulses, Regular rate/rhythm Gastrointestinal: Soft and benign, Non-distended Musculoskeletal: No swelling Neurological: Normal speech, Normal strength at 5/5 x4 extr Laboratory Data at Discharge: WBC 5.6 K/uL (4.3-10.9) 10/17/21 03:21 Hgb 12.8 g/dL (13.6-17.9) L 10/17/21 03:21 Hct 36.7 % (39.6-49.0) L 10/17/21 03:21 Plt Count 171 K/uL (152-406) 10/17/21 03:21 PT 11.4 SECONDS (9.5-12.5) 10/11/21 01:45 INR 1.04 10/11/21 01:45 Sodium 137 mmol/L (136-145) 10/17/21 03:21 Potassium 3.9 mmol/L (3.5-5.1) 10/17/21 03:21 BUN 22 mg/dL (7-18) H 10/17/21 03:21 Creatinine 1.41 mg/dL (0.55-1.3) H 10/17/21 03:21 Glucose 102 mg/dL (74-106) 10/17/21 03:21 Phosphorus 2.5 mg/dL (2.5-4.9) 10/12/21 03:58 Magnesium 1.9 mg/dL (1.8-2.4) 10/12/21 03:58 Total Bilirubin 0.6 mg/dL (0.2-1.0) 10/12/21 03:58 AST 27 U/L (15-37) 10/12/21 03:58 ALT 27 U/L (12-78) 10/12/21 03:58 Alkaline Phosphatase 57 U/L (45-117) 10/12/21 03:58 Triglycerides 59 mg/dL (<150) 10/15/21 06:27 Cholesterol 155 mg/dL (<200) 10/15/21 06:27 HDL Cholesterol 45 mg/dL (40-60) 10/15/21 06:27 Cholesterol/HDL Ratio 3.44 10/15/21 06:27 Home Medications: Citalopram [Celexa*] 20 mg PO DAILY 04/10/13 Clopidogrel Bisulfate [Plavix*] 75 mg PO DAILY 04/10/13 Bicalutamide 50 mg DAILY 10/11/21 Pantoprazole [Protonix Tab*] 40 mg EVERY 3RD DAY 10/11/21 Amlodipine [Norvasc*] 10 mg PO DAILY tab 10/17/21 Aspirin [Aspirin EC 81 MG] 81 mg PO DAILY #30 tablet. 10/17/21 Atorvastatin Calcium [Lipitor] 80 mg PO BEDTIME tab 10/17/21 Docusate/Senna [Senokot-S*] 2 tab PO BEDTIME PRN tab 10/17/21 Ezetimibe [Zetia*] 10 mg PO BEDTIME tab 10/17/21 Metoprolol Tartrate [Lopressor*] 50 mg PO BID tab 10/17/21 traMADol HCL [Ultram*] 50 mg PO Q6HP PRN #12 tab 10/17/21 New Medications: traMADol HCL [Ultram*] 50 mg PO Q6HP PRN #12 tab PRN Reason: Pain Scale 5-7 (Moderate) Aspirin [Aspirin EC 81 MG] 81 mg PO DAILY #30 tablet. Diet: AHA Activity: Fall precautions Followup: Unknown,U [Primary Care Provider] - 1-2 Weeks
--- NOTE | 2021-10-17 23:32 | PN ---
Subjective: Mr. Webb is doing well. He denies any new deficits. Does have incoordination in the l eft upper and lower extremities due to a large stroke in the left cerebellum. Objective: Vital Signs: Blood pressure 164/72, pulse 54, respiratory rate 16, temperature 97.5, oxy gen saturation 98%. General: Mr. Webb is resting comfortably in bed. is at bedside. Neurologic: He has significant incoordination with dysmetria on [id number] and [id number] in t he left, not present on the right. He has full strength in the left and on the right. Laboratory Studies: Show complete blood count with differential, WBC is 5.6, hemoglobin 12.8, hemato crit 36.7. Chemistries show creatinine 1.41, calcium 8.4. Liver function studies unremarkable. His cholesterol panel shows a triglycerides 59, cholesterol total 155, LDL 98, HDL 45. Cholesterol to H DL ratio 3.44. He has neck magnetic resonance angiogram, shows 50% to 7% stenosis of the left caroti d bulb. There is diminished flow in the left vertebral system. Right vertebral artery appears domin ant. There is a stent noted in the right ICA. His head magnetic resonance angiogram showed signific ant motion artifact and was limited. There was diminished flow in the distal left vertebral artery, likely related to stenosis. There are no large vessel occlusion evident otherwise. Assessment: Mr. Webb is an 81-year-old patient with a large left cerebellar stroke that is subacute , measures 4.5 x 5 cm. The patient's in discussion reported he actually went to bed around 9 an d woke up around 12 and then came to the hospital outside of a 4.5-hour window to receive tPA. In te jose alberto of his symptoms, he woke up with the symptoms but went to bed normal around 9. This is prior to coming into [facility]. He is going to aggressive inpatient physical occupational therapy after disc harge. Plan: 1.Physical, occupational, and speech therapy as appropriate. 2.Continue with aspirin 81 mg, Plavix 75 mg, folic acid 1 mg, Lipitor 80 mg at bedtime, and Lopresso r and Trandate may be consolidated into just Lopressor 50 mg at night. He does have Senokot and Ultr am. 3.After discharge, follow up in Dr. Adair's clinic 1 month later. LASHON/KELLY Voice ID: [id number] Report ID: [id number]
== END 2021-10-17 19:15 | DRG 65 ==
LOC: ER 00:47 → ERHOLD 06:15 → 2ND 15:27 → OBSVTOIN 10-12 19:28
PROVIDERS: ADMIT Internal Medicine; ATTEND Internal Medicine
DX: I63.9 Cerebral infarction, unspecified (principal); G91.2 (Idiopathic) normal pressure hydrocephalus; R64 Cachexia; R47.1 Dysarthria and anarthria; R29.704 NIHSS score 4; R27.8 Other lack of coordination; R26.81 Unsteadiness on feet; G93.89 Other specified disorders of brain; I10 Essential (primary) hypertension; E78.5 Hyperlipidemia, unspecified; Z91.81 History of falling; E87.6 Hypokalemia; R00.1 Bradycardia, unspecified; I65.23 Occlusion and stenosis of bilateral carotid arteries; R41.0 Disorientation, unspecified; T43.3X5A Adverse effect of phenothiazine antipsychotics and neuroleptics, initial encounter; Y92.230 Patient room in hospital as the place of occurrence of the external cause; R25.1 Tremor, unspecified; K59.00 Constipation, unspecified; N28.9 Disorder of kidney and ureter, unspecified; R10.2 Pelvic and perineal pain; I25.10 Atherosclerotic heart disease of native coronary artery without angina pectoris; I73.9 Peripheral vascular disease, unspecified; Z68.23 Body mass index [BMI] 23.0-23.9, adult; R55 Syncope and collapse; I25.2 Old myocardial infarction; Z85.46 Personal history of malignant neoplasm of prostate; Z79.82 Long term (current) use of aspirin; Z95.1 Presence of aortocoronary bypass graft; Z95.5 Presence of coronary angioplasty implant and graft; Z87.891 Personal history of nicotine dependence; Z20.822 Contact with and (suspected) exposure to COVID-19
CPT/HCPCS: 36415; 70450; 70544; 70549; 70551; 71045; 72125; 72170; 80048; 80053; 80061; 80076; 81003; 81015; 83735; 83880; 84100; 84132; 84484; 85025; 85610; 93005; 93880; 96374; 97110; 97112; 97116; 97161; 97530; 99284; A9577; G0378; J0360; J1650; J2405; J2550; J7030; U0003

== ENCOUNTER 2021-11-05 05:26 | Observation (INO) | payer OTHER, BC ==
--- OUTSIDE RECORDS SUMMARY | 2021-11-05 05:34 | XMS REPORT | Continuity of Care Document ---
:1940 Author Organization [facility] t Address [address] [place] [address] Care Team Providers Name Role Phone Asked, Pcp Primary Care Physician Unavailable Domenico Lindquist Attending Clinician Unavailable Erin Ayala Attending Clinician Unavailable ANDEREA Attending Clinician Unavailable ANA LAURA Attending Clinician Unavailable JOSE Attending Clinician Unavailable ESTHER Attending Clinician Unavailable Dusty Day MD Attending Clinician Tawanna Yoder CRNA Attending Clinician Janiya FARIAS Attending Clinician Unavailable Titus Attending Clinician Unavailable Charlie FARIAS Attending Clinician Unavailable Chi STERLING, BLeta Attending Clinician Jeanne STERLING Attending Clinician Peter FARIAS Attending Clinician Unavailable Rebecca Attending Clinician Unavailable Leisa FARIAS Attending Clinician Unavailable Shea Viveros Attending Clinician [phone] Todd Attending Clinician Unavailable Lucie Mars Attending Clinician Unavailable Lucie Mars Attending Clinician Unavailable MD Sarah GARCIA Attending Clinician Unavailable DIMPLE Attending Clinician Unavailable ONNeelU Attending Clinician Unavailable Domenico Lindquist Admitting Clinician Unavailable ESTHER Admitting Clinician Unavailable Rebecca Admitting Clinician Unavailable Lucie Mars Admitting Clinician Unavailable JOSE Admitting Clinician Unavailable MD Sarah GARCIA Admitting Clinician Unavailable ONAIWU Admitting Clinician Unavailable DU Admitting Clinician Unavailable Payers Payer Name Policy Type Policy Number Effective Date Expiration Date S helio MCR MCR [id number] BCTP BCTI [id number] [place]: [id number] 2004 [employer] 00:00:00 [place] [id number] 2018 [place] (MEDICARE 00:00:00 SUPPLEMENT) Problems Condition [...] Added automatic ally from request for surgery [id number] Arthritis Arthritis Disease Active 2020-05 [facility] of right of right 2-28 st wrist wrist 00:00: Hospita 00 l Right arm Right arm Disease Active 2020-05 [facility] pain pain 2 st 00:00: Hospita 00 l Right arm Right arm Disease Active 2020-05 [facility] numbness numbness 2-28 st 00:00: Hospita 00 l Urinary Urinary [...] with Disease Active [facility] di urinary urinary 7 st obstructio obstructio 00:00: Ho spita n n 00 l BPH with BPH with Disease Active [facility] di obstructio obstructio 7- st n/lower n/lower 00:00: Hospita urinary urinary 00 l tract tract symptoms symptoms Malignant Malignant Disease Active [facility] neoplasm neoplasm 7 st of of 00:00: Hospita prostate prostate 00 l 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 Added automatic ally from request for surgery [id number] Abnormal Abnormal Disease Active [facility] stress stress 1-15 st test test 00:00: Hospita 00 l Angina Angina Disease Active [facility] pectoris pectoris 1-15 st 00:00: Hospita 00 l CAD in CAD in Disease Active 2017-05 [facility] [place] 2-11 st artery artery 00:00: Hospita 00 [...] disease 00:00: Hospita involving involving 00 l [place] coronary coronary artery artery without without angina [...] 2013-06-05 Memor ia Fracture 16:18:01 l Pelvic [place] Fracture Active [facility] Cl[facility] Problem Active 2013-06-05 Memor ia Fracture 16:18:01 l Of The Closed [place] [employer] Fracture Of The [place]et[employer] Active 06/05/2013 [...] Date Stop Date Source Natural brother Cancer [facility] Natural father No Known Problems Met [facility] Natural mother Cancer [facility] Social History Social Habit Start Date Stop Date Quantity Comments Source History of tobacco Cigarette Smoker [facility] Exposure to Not sure [facility] SARS-CoV-2 (event) Hospit al Alcohol intake 2021-06-21 2021-06-21 Current [facility] 00:00:00 00:00:00 non-drinker of Hospital alcohol (finding) Cigarettes smoked 2018-07-03 2018-07-[address] current (pack per 00:00:00 00:00:00 Hospita l day) - Reported Cigarette 2018-07-03 2018-07-03 [facility] pack-years 00:00:00 00:00:00 Hospital Tobacco use and 2018-07-03 2018-07-03 Smokeless tobacco [facility] exposure 00:00:00 00:00:00 non-user Hospital Sex Assigned At [birth year] M [facility] 00:00:00 00:00:00 Hospital Smoking Status Start Date Stop Date Source Ex-smoker 2018-07-03 00:00:00 2018-07-03 00:00:00 [facility] Hospital Medications Ordered Filled Start Stop Current Ordering [...] 09:24: daily. Hospit a 34 l LACTOBACILL Yes 1{tbl} QD Take 1 Me thodi US 06-[address] RHAMNOSUS 09:24: mouth Hospita [...] pricilla tablet 34 l traMADoL 2021- No [id number] 50mg Q6H Take 1 Metho di (ULTRAM) 50 06-09 tablet (50 s t mg tablet 00:00: 05:59 mg total) Ho spita 00 :00 by mouth l every 6 (six) hours as needed for moderate pain for up to 3 days .acute pain. Take after surgery as needed [place] [id number] 50mg Q6H Take 1 Meth[facility] di (ULTRAM) 50 06-09 tablet (50 s t mg tablet 00:00: 05:59 mg total) Ho spita 00 :00 by mouth l every 6 (six) hours as needed for moderate pain for up to 3 days .acute pain. Take after surgery as needed for significan t pain. metoprolol Yes 50mg QD Take 1 Meth[facility] di succinate 1-26 tablet (50 st XL 00:00: mg total) Hospita (TOPROL-XL) 00 by mouth l 50 mg 24 hr daily. tablet losartan Yes 100mg QD Take 1 Method i (COZAAR) 1-[address] 100 MG 00:00: (100 mg Hospita tablet 00 total) by l mouth daily. metoprolol Yes 50mg QD Take 1 Metho di succinate 1-26 tablet (50 st XL 00:00: mg total) Hospita (TOPROL-XL) 00 by mouth l 50 mg 24 hr daily. tablet losartan 2021- No 100mg QD Take 1 Metho di (COZAAR) 1-26 02-[address] 100 MG 00:00: 00:00 (100 [...] GENERIC EQUIVALENT FOR CRESTOR HYDROcodone 2020-05 No 1{tbl} Q6H Take 1 Methodi -acetaminop 2-28 - tablet by st Adbrain) 00:00: 05:59 mouth Hosp pricilla 5-325 mg 00 :00 every 6 l per tablet (six) hours as needed for moderate pain for up to 10 days .acute pain. Max Daily Amount: 4 tablets HYDROcodone 2020-05 No [id number] 1{tbl} Q6H Take 1 Methodi -acetaminop 2-28 -[address] hen ([employer]) 00:00: 05:59 mouth Hosp pricilla 5-325 mg 00 :00 every 6 l per tablet (six) hours as needed for moderate pain for up to 10 days .acute pain. Max Daily Amount: 4 tablets bicalutamid 2020-05 No 50mg QD Take 50 mg Methodi e (CASODEX) 003-[address] 50 mg chemo 06:13: 00:00 daily. Hos deo tablet 44 :00 l bicalutamid 2020-05 No 50mg QD Take 50 mg Methodi e (CASODEX) 0- by mouth st 50 mg chemo 06:13: 00:00 daily. Hos deo tablet 44 :00 l bicalutamid 2020-05 No [id number] TAKE 1 Methodi e (CASODEX) 004-[address] 50 mg chemo 00:00: 05:59 MOUTH 2 Ho spita tablet 00 :00 TIMES A l DAY GENERIC EQUIVALENT FOR CASODEX bicalutamid 2020-05 No [id number] TAKE 1 Methodi e (CASODEX) 004-[address] 50 mg chemo 00:00: [...] 2020-05- No TAKE 1 Method i (COZAAR) 0- TABLET BY st 100 MG 00:00: 00:00 MOUTH Hospita tablet 00 :00 DAILY l rosuvastati 2020-05- No TAKE 1 Met hodi n (CRESTOR) 0- TABLET BY st 40 MG 00:00: 00:00 MOUTH Hospita tablet 00 :00 DAILY l GENERIC EQUIVALENT FOR CRESTOR rosuvastati 2020-05- No TAKE 1 Met hodi n (CRESTOR) 0-11 -[address] 40 MG 00:00: 00:00 [...] 00 :00 DAILY l amLODIPine 2021- No [id number] 5mg Q.5D Take 1 Methodi (NORVASC) 5 09-21- tablet (5 st mg tablet 00:00: 00:00 mg total) Ho spita 00 :00 by mouth 2 l (two) times a day. amLODIPine 2021- No [id number] 5mg Q.5D Take 1 Methodi (NORVASC) 5 09-21- tablet (5 st mg tablet 00:00: 00:00 mg total) Ho spita 00 :00 by mouth 2 l (two) times a day. rosuvastati 2020- No 40mg QD Take 1 Met hodi n (CRESTOR) 4-05 -11 tablet (40 s t 40 MG 00:00: 00:00 mg total) Hospit a tablet 00 :00 by mouth l daily. rosuvastati 2020- No 40mg QD Take 1 Met hodi n (CRESTOR) 4-05 10-11 tablet (40 s t 40 MG 00:00: 00:00 mg total) Hospit a tablet 00 :00 by mouth l daily. metoprolol 2020- No 50mg QD Take 1 [...] 50 mg 24 hr daily. tablet losartan 2020- No 100mg QD Take 1 Metho di (Cozaar) 3-[address] 100 MG 00:00: 00:00 (100 mg Hospita tablet 00 :00 total) by l mouth daily. losartan 2020- No 100mg QD Take 1 Metho di (Cozaar) 3-05 11-[address] 100 MG 00:00: 00:00 (100 mg Hospita tablet 00 :00 total) by l mouth daily. metoprolol 2020- No 100mg QD Take 1 Met hodi succinate 3-15 -[address] XL 00:00: 00:00 (100 mg Hospita (TOPROL-XL) 00 :00 total) by l 100 mg 24 mouth hr tablet daily. metoprolol 2020- No 100mg QD Take 1 Met hodi succinate 3-15 -[address] XL 00:00: 00:00 (100 mg Hospita (TOPROL-XL) 00 :00 total) by l 100 mg 24 mouth hr tablet daily. meloxicam 2020- No 15mg QD Take 15 mg M ethodi (MOBIC) 15 2-16 02-[address] mg tablet 14:25: 00:00 daily. Hospi ta 55 :00 l meloxicam 2020- No 15mg QD Take 15 mg M ethodi (MOBIC) 15 2-16 -[address] mg tablet 14:25: 00:00 daily. Hospi ta 55 :00 l amLODIPine 2020- No [id number] 5mg Q.5D Take 1 Methodi (NORVASC) 5 2-16 05-11 tablet (5 st mg tablet 00:00: 00:00 mg total) Ho spita 00 :00 by mouth 2 l (two) times a day. amLODIPine 2020- No [id number] 5mg Q.5D Take 1 Methodi (NORVASC) 5 [...] deo 00 by mouth l daily. losartan 2020- No 100mg QD Take 1 Metho di (Cozaar) 1-05 03-[address] 100 MG 00:00: 00:00 (100 mg Hospita tablet 00 :00 total) by l mouth daily. losartan 2020- No 100mg QD Take 1 Metho di (Cozaar) 1-05 03-[address] 100 MG 00:00: 00:00 (100 mg Hospita tablet 00 :00 total) by l mouth daily. bicalutamid 2019-05 No 50mg Q.5D Take 1 Met hodi e (CASODEX) 06-0118 tablet (50 s t 50 mg chemo [...] 00 :00 by mouth l daily. amLODIPine No [id number] 10mg Q.5D Take 1 Methodi (NORVASC) 12-29-16 tablet (10 st 10 mg 00:00: 00:00 mg total) Hospit a tablet 00 :00 by mouth 2 l (two) times a day. amLODIPine 2020- No [id number] 10mg Q.5D Take 1 [facility] (NORVASC) 12-29-16 tablet (10 st 10 mg 00:00: 00:00 mg total) Hospit a tablet 00 :00 by mouth 2 l (two) times a day. metoprolol 2020- No 100mg QD Take 1 Met hodi succinate 09-29-[address] XL 00:00: 00:00 (100 mg Hospita (TOPROL-XL) 00 :00 total) by l 100 mg 24 mouth hr tablet daily. metoprolol 2020- No 100mg QD Take 1 Met hodi succinate -30 07-[address] XL 00:00: 00:00 (100 mg Hospita (TOPROL-XL) 00 :00 total) by l 100 mg 24 mouth hr tablet daily. cefTRIAXone 2019-0 Yes [id number] 1g M ethodi (ROCEPHIN) 5-18 st injection 1 14:00: Hospit a g 00 l cefTRIAXone 2020- Yes [id number] 1g M ethodi (ROCEPHIN) 5-18 st injection 1 14:00: Hospit a g 00 l No Active Yes No Active Mem oria Medications -23 Medication l 16:18: s [place] 01 No Active Yes No Active Mem oria Medications -23 Medication l 16:18: s [place] 01 Immunizations Ordered Immunization Filled Immunization Date Status Commen ts Source Name Name FLUCELVAX QUAD PF 2021-04-[address] 00:00:00 [facility] FLUCELVAX QUAD PF 2021-04-[address] 00:00:[place] [address] 2021-01-14 Completed Methodis t MRNA VACCINATION 00:00:00 [place] [address] 2021-01-14 Completed Methodis t MRNA VACCINATION 00:00:00 [place] [address] 2020-06-15 Completed [facility] Method[facility] t MRNA VACCINATION 00:00:00 [place] [address] 2020-05-18 Completed Methodis t MRNA VACCINATION 00:00:00 [place] [address] 2020-05-18 Completed Methodis t MRNA VACCINATION 00:00:00 [facility] FLUCELVAX QUAD PF 2020-02-[address] 00:00:00 [facility] FLUZONE HIGH-DOSE PF 2020-02-13 Completed Meth odist 00:00:00 [facility] FLUCELVAX QUAD PF 2020-02-[address] 00:00:00 [facility] FLUZONE HIGH-DOSE PF 2020-02-13 Completed Meth odist 00:00:00 Hospital FLUZONE QUAD 2019-03-05 Completed [facility] 00:00:00 Hospital Pneumococcal 2019-03-05 Completed [facility] Conjugate 13-Valent 00:00:00 Hospi suzanne FLUZONE QUAD 2019-03-05 Completed [facility] 00:00:00 Hospital Pneumococcal 2019-03-05 Completed [facility] Conjugate 13-Valent 00:00:00 Hospi suzanne Vital Signs Vital Name Observation Time Observation Value Comments Source Systolic blood 2021-06-21 14:03:00 124 mm[Hg] Method [facility] pressure Diastolic blood 2021-06-21 14:03:00 58 mm[Hg] [facility] pressure Heart rate 2021-06-21 14:03:00 63 /min [facility] Body height 2021-06-21 14:03:00 180.3 cm [facility] Body weight 2021-06-21 14:03:00 72.576 kg [facility] BMI 2021-06-21 14:03:00 22.32 kg/m2 [facility] Systolic blood 2021-06-10 15:02:00 134 mm[Hg] [facility] pressure Diastolic blood 2021-06-10 15:02:00 59 mm[Hg] [facility] pressure Heart rate 2021-06-10 15:02:00 65 /min [facility] Body temperature 2021-06-10 15:02:00 36.39 [facility] Respiratory rate 2021-06-10 15:02:00 16 /min [facility] Oxygen saturation in 2021-06-10 15:02:00 99 /min [facility] Arterial blood by Pulse oximetry Body height 2021-06-10 13:15:00 180.3 cm [facility] Body weight 2021-06-10 13:15:00 72.802 kg [facility] BMI 2021-06-10 13:15:00 22.39 kg/m2 [facility] Procedures Procedure Date / Time Performing Clinician Source Performed ECG 12-LEAD 2021-06-21 14:06:38 Manny Du [facility] SURGICAL PATHOLOGY REQUEST 2021-06-10 15:03:00 Bertha Justice [facility] RELEASE, CARPAL TUNNEL 2021-06-10 14:14:00 Esther [facility] XR HAND 3+ VW RIGHT 2021-06-02 17:05:26 Bertha Justice [facility] [place] INJECT CARPAL TUNNEL 2021-05-19 14:21:52 Bertha Justice [facility] EMG 2021-05-17 18:36:56 Milton Mireles [facility] MRI WRIST WO CONTRAST RIGHT 2021-05-17 17:40:00 [facility] XR HANDS 3 VW BILATERAL 2021-04-20 20:14:33 Ali, [facility] DOUBLE-STRANDED DNA (DSDNA) 2021-04-20 18:25:00 Ali, [facility] ANTIBODIES, CRITHIDIA CBC WITH PLATELET AND 2021-04-20 18:25:00 Ali, [facility] DIFFERENTIAL COMPREHENSIVE METABOLIC 2021-04-20 18:25:00 Ali, [facility] PANEL C-REACTIVE PROTEIN 2021-04-20 18:25:00 Ali, [facility] C4 COMPLEMENT COMPONENT 2021-04-20 18:25:00 Ali, [facility] SEDIMENTATION RATE 2021-04-20 18:25:00 Ali, [facility] URINE PROTEIN/CREATININE 2021-04-20 18:25:00 Ali, [facility] RATIO, RANDOM URINALYSIS, AUTOMATED WITH 2021-04-20 18:25:00 Ali, [facility] MICROSCOPY US CAROTID DUPLEX BILATERAL 2020-12-28 17:38:12 [facility] US ABDOMINAL AORTA 2020-11-29 13:52:35 [facility] DAO IFA, W/REFL TO 2020-10-05 14:46:00 Ali, [facility] TITER/PATTERN/CASCADE RIBONUCLEOPROTEIN ANTIBODY 2020-10-05 14:46:00 [facility], [facility] (REGISTERED NURSE FETAL ANTIBODY) BETA-2 GLYCOPROTEIN 1 2020-10-05 14:46:00 Ali, [facility] ANTIBODIES (IGG, IGA, IGM) C4 COMPLEMENT COMPONENT 2020-10-05 14:46:00 Ali, [facility] CARDIOLIPIN ANTIBODIES 2020-10-05 14:46:00 Ali, [facility] CBC WITH PLATELET AND 2020-10-05 14:46:00 [facility], [facility] DIFFERENTIAL COMPLEMENT ACTIVITY, TOTAL 2020-10-05 14:46:00 Ali, [facility] COMPREHENSIVE METABOLIC 2020-10-05 14:46:00 Ali, [facility] PANEL C-REACTIVE PROTEIN 2020-10-05 14:46:00 Ali, [facility] CYCLIC CITRULLINATED 2020-10-05 14:46:00 [facility] PEPTIDE AB, IGG DIRECT ANTIGLOBULIN TEST 2020-10-05 14:46:00 [facility] DOUBLE-STRANDED DNA (DSDNA) 2020-10-05 14:46:00 [facility] ANTIBODIES, IMMUNOASSAY LUPUS ANTICOAGULANT PANEL 2020-10-05 14:46:00 [facility] RHEUMATOID FACTOR 2020-10-05 14:46:00 [facility] SEDIMENTATION RATE 2020-10-05 14:46:00 [facility] URINE PROTEIN/CREATININE 2020-10-05 14:46:00 [facility] RATIO, RANDOM URINALYSIS, AUTOMATED WITH 2020-10-05 14:46:00 [facility] MICROSCOPY VITAMIN D 25 HYDROXY LEVEL 2020-10-05 14:46:00 [facility] TSH REFLEX TO T4F 2020-10-05 14:46:00 [facility] ANCA SCREEN WITH MPO AND 2020-10-05 14:46:00 [facility] PR3, WITH REFLEX TO ANCA TITER CREATINE KINASE, TOTAL 2020-10-05 14:46:00 [facility] ([facility]) ALDOLASE, SERUM 2020-10-05 14:46:00 [facility] spital ANTINUCLEAR ANTIBODIES 2020-10-05 14:46:00 [facility] TITER AND PATTERN STAGE 1 2020-10-05 14:46:00 [facility] spital INTERPRETATION 2020-10-05 14:46:00 [facility] spital PSA, TOTAL AND FREE 2020-10-04 13:40:00 [facility] BRAIN WO CONTRAST 2020-09-06 16:34:13 [facility] 2020-09-03 15:38:21 [facility] CBC WITH PLATELET AND 2020-08-26 19:09:00 [facility] Claudia COMPREHENSIVE METABOLIC 2020-08-26 19:09:00 [facility] PANEL Claudia IMMUNOFIXATION, SERUM 2020-08-26 19:09:00 [facility] Claudia METHYLMALONIC ACID, SERUM 2020-08-26 19:09:00 [facility] Claudia VITAMIN B1 LEVEL 2020-08-26 19:09:00 [facility] Claudia VITAMIN B12 LEVEL 2020-08-26 19:09:00 [facility] Claudia VITAMIN E 2020-08-26 19:09:00 [facility] ospital Claudia DAO SCREEN W IFA W REFLEX 2020-08-26 19:09:00 [facility] TO TITER Claudia Plan of Care Planned Activity Planned Date Details Comments Source Future Scheduled 2021-06-22 SHINGLES VACCINES (#1) [facility] Test 19:34:39 [code = SHINGLES VACCINES (#1)] Future Scheduled 2021-06-22 65+ PNEUMOCOCCAL [facility] Test 19:34:39 VACCINE (2 of 4 - PPSV23) [code = 65+ PNEUMOCOCCAL VACCINE (2 of 4 - PPSV23)] Future Scheduled 2021-06-13 SHINGLES VACCINES (#1) [facility] Test 22:18:48 [code = SHINGLES VACCINES (#1)] Future Scheduled 2021-06-13 65+ PNEUMOCOCCAL [facility] Test 22:18:48 VACCINE (2 of 4 - PPSV23) [code = 65+ PNEUMOCOCCAL VACCINE (2 of 4 - PPSV23)] Future Scheduled [U] XR CALCANEUS [facility] [place] Test (HEEL) 2 VWS, MIN. RIGHT 55962 12/12/2012 Routine[U] XRAY PELVIS MIN 3 VWS 62760 12/12/2012 Routine [code = [U] XR CALCANEUS (HEEL) 2 VWS, MIN. RIGHT 84245 12/12/2012 Routine[U] XRAY PELVIS MIN 3 VWS 12800 12/12/2012 Routine] Future Scheduled [U] XR CALCANEUS [facility] [place] Test (HEEL) 2 VWS, MIN. RIGHT 22425 12/12/2012 Routine[U] XRAY PELVIS MIN 3 VWS 85118 12/12/2012 Routine [code = [U] XR CALCANEUS (HEEL) 2 VWS, MIN. RIGHT 33483 12/12/2012 Routine[U] XRAY PELVIS MIN 3 VWS 16733 12/12/2012 Routine] Encounters Start End Encounter Admission Attending Care Care Encounter Source Date/Time Date/Time Type Type Clinicians Facility Department ID 2021-10-14 Outpatient 3 Ameena MARSHAL BIN [id number] ENCPL 08:18:57 Domenico 0603 2021-06-08 [facility] [id number] Common 14:24:12 [facility] [address] [facility] 2021-06-08 Out[facility] Ayala, [facility] [id number] Common 13:20:23 [facility] [address] [facility] 2021-06-08 Out[facility] Ayala, [facility] [id number] Common 13:16:53 [facility] [address] [facility] 2021-10-17 2021-10-27 Inpatient 3 Ameena MARSHAL CVA [id number] ENCPL 20:15:00 10:30:00 Domenico 0606 2021-10-27 2021-10-[address] 00:00:00 00:00:00 OMAIRA 192 Method i 2021-10-27 2021-10-27 Outpatient ANDREEA[address] 00:00:00 00:00:00 OMAIRA 250 Method i 2021-10-27 2021-10-27 Outpatient ANDREEA[address] 00:00:00 00:00:00 OMAIRA 265 Method i 2021-10-27 2021-10-27 Outpatient ANDREEA[address] 00:00:00 00:00:00 OMAIRA 281 Method i 2021-10-27 2021-10-27 Outpatient ANDREEA[address] 00:00:00 00:00:00 OMAIRA [address] 2021-10-27 2021-10-27 Outpatient ANDREEA, [facility] [id number] [place] 00:00:00 00:00:00 OMAIRA [address] 2021-10-27 2021-10-27 Outpatient ANDREEA, [facility] [id number] [place] 00:00:00 00:00:00 OMAIRA [address] 2021-10-17 2021-10-17 Outpatient ANA LAURA, [facility] [id number] [place] 00:00:00 00:00:00 MANNY [address] 2021-10-05 2021-10-05 ambulatory STLMLC ST[facility] [id number] Common 00:00:00 00:00:00 [facility] 2021-10-04 2021-10-04 Outpatient ANA LAURA, [facility] [id number] [place] 00:00:00 00:00:00 MANNY [address] 2021-09-19 2021-09-19 ambulatory STLMLC STLMLC [id number] Common 00:00:00 00:00:00 [facility] 2021-09-13 2021-09-13 Outpatient JOSE, [facility] [id number] [place] 00:00:00 00:00:00 MOUSTAPHA [address] 2021-09-12 2021-09-12 ambulatory STLMLC STLMLC [id number] Common 00:00:00 00:00:00 [facility] 2021-06-28 2021-06-28 Outpatient SIFF, BERTHA [facility] [id number] [place] 00:00:00 00:00:[address] 2021-06-21 2021-06-21 Office Du, 1.2.840.1 [id number] Methodi 07:51:10 12:33:18 Visit Manny Jim 53444.1.[address] 3.430.2.7 Hospit a .3.800502 l .8 2021-06-21 2021-06-21 Travel 1.2.840.1 1.2.926.008 [id number] Methodi 00:00:00 00:00:[address] 3.430.2.7 0.2.7.3.698 Ho jessicata .3.411776 084.8 l .8 2021-06-16 2021-06-16 Refjunaid Du 1.2.840.1 [id number] Methodi 00:00:00 00:00:[address] 3.430.2.7 Hospit a .3.953957 l .8 2021-06-10 2021-06-10 Surgery Bertha Justice 1.2.840.1 [id number] Methodi 09:00:00 09:40:[address] 3.430.2.7 Hospit a .3.727446 l .8 2021-06-10 2021-06-10 Anesthesia Suyapa Day 1.2.840.1 [id number] Methodi 08:14:00 08:38:00 Event Rj Yoder 61625.1.[address] 3.430.2.7 Hospit a .3.331498 l .8 2021-06-10 2021-06-10 [facility] 021 [id number] [place] 00:00:00 00:00:00 Encounter [address] 2021-06-08 2021-06-08 Refjunaid Denson 1.2.840.1 [id number] Methodi 00:00:00 00:00:[address] 3.430.2.7 Hospit a .3.168945 l .8 2021-06-08 2021-06-08 Sridevi Du 1.2.840.1 [id number] Methodi 00:00:00 00:00:[address] M[address] 3.430.2.7 Hospit a .3.445323 l .8 2021-06-02 2021-06-02 Office Bertha Justice 1.2.840.1 [id number] Methodi 09:41:51 12:05:[address] E. [address]346.1.[address] 3.430.2.7 Hospit a .3.228257 l .8 2021-06-02 2021-06-02 Outpatient BERTHA JUSTICE [facility] [id number] [place] 00:00:00 00:00:[address] 2021-06-02 2021-06-02 Prep for Titus, 1.2.840.1 [id number] Methodi 00:00:00 00:00:00 Surgery Mahi 21537.1.[address] 3.430.2.7 Hospit a .3.084019 l .8 2021-06-02 2021-06-02 Documentat Charlie, 1.2.840.1 [id number] Methodi 00:00:00 00:00:00 ion Wanda [address].1.[address] 3.430.2.7 Hospit a .3.986411 l .8 2021-06-02 2021-06-02 Travel 1.2.840.1 1.2.431.739 3812 850104 Methodi 00:00:00 00:00:[address] 3.430.2.7 0.2.7.3.698 Ho spita .3.081863 084.8 l .8 2021-06-02 2021-06-02 Outpatient BERTHA JUSTICE [facility] 2100 [id number] [place] 00:00:00 00:00:[address] 2021-05-19 2021-05-19 Office Bertha Justice 1.2.840.1 [id number] Methodi 08:03:10 08:35:[address] 17901[address]1.[address] 3.430.2.7 Hospit a .3.738573 l .8 2021-05-19 2021-05-19 Travel 1.2.840.1 1.2.182.765 9223 192437 Methodi 00:00:00 00:00:[address] 3.430.2.7 0.2.7.3.698 Ho spita .3.791296 084.8 l .8 2021-05-17 2021-05-17 [facility] [place] 1.2.840.1 [id number] 21 [id number] Methodi 09:57:39 23:59:00 [address] 31655.1.[address] 3.430.2.7 Hospit a .3.803562 l .8 2021-05-17 2021-05-17 [facility] [place] 1.2.840.1 [id number] 21 [id number] Methodi 09:31:37 09:56:[address]754[address]1.[address] 3.430.2.7 Hospit a .3.631030 l .8 2021-05-17 2021-05-17 Travel 1.2.840.1 1.2.418.546 0990 103048 Methodi 00:00:00 00:00:[address] 3.430.2.7 0.2.7.3.698 Ho spita .3.833107 084.8 l .8 2021-05-17 2021-05-17 Outpatient MILTON MIRELES [facility] 2100 [id number] [place] 00:00:00 00:00:[address] 2021-05-16 2021-05-16 Sridevi Du 1.2.840.1 [id number] 6709 Methodi 00:00:00 00:00:[address]655.1.[address] 3.430.2.7 Hospit a .3.295821 l .8 2021-05-10 2021-05-10 Office Bertha Justice 1.2.840.1 [id number] Methodi 09:28:40 10:44:11 Visit [place] [address]132.1.[address] 3.430.2.7 Hospit a .3.444606 l .8 2021-05-10 2021-05-10 Travel 1.2.840.1 1.2.801.687 4588 764919 Methodi 00:00:00 00:00:[address] 3.430.2.7 0.2.7.3.698 Ho spita .3.108886 084.8 l .8 2021-05-03 2021-05-03 ambulatory STLMLC STLMLC [id number] Common 00:00:00 00:00:00 [facility] 2021-05-03 2021-05-03 Travel 1.2.840.1 1.2.273.477 4296 735539 Methodi 00:00:00 00:00:[address] 3.430.2.7 0.2.7.3.698 Ho spita .3.557888 084.8 l .8 2021-04-27 2021-04-27 Orders Susan Angel 1.2.840.1 [id number] 2099 336167 Methodi 00:00:00 00:00:[address] 3.430.2.7 Hospit a .3.642822 l .8 2021-04-26 2021-04-26 ambulatory STLMLC STLMLC [id number] Common 00:00:00 00:00:00 [facility] 2021-04-20 2021-04-20 Office Susan Angel 1.2.840.1 [id number] 2099 144417 Methodi 11:14:54 13:12:[address] 3.430.2.7 Hospit a .3.171340 l .8 2021-04-20 2021-04-20 Lab Susan Angel 1.2.840.1 [id number] 2099 322446 Methodi 12:16:49 12:21:[address] 3.430.2.7 Hospit a .3.942860 l .8 2021-04-20 2021-04-20 Travel 1.2.840.1 1.2.411.659 9145 911770 Methodi 00:00:00 00:00:[address] 3.430.2.7 0.2.7.3.698 Ho spita .3.125436 084.8 l .8 2021-04-20 2021-04-20 Outpatient SUSAN ANGEL [facility] [id number] [place] 00:00:00 00:00:[address] 2021-03-25 2021-03-25 Telephone Green, 1.2.840.1 [id number] 2100 [id number] Methodi 00:00:00 00:00:[address] 3.430.2.7 Hospit a .3.081986 l .8 2021-03-07 2021-03-07 Sridevi Du 1.2.840.1 [id number] 732510 3236 Methodi 00:00:00 00:00:[address] 3.430.2.7 Hospit a .3.702554 l .8 2021-03-07 2021-03-07 Sridevi Garcia 1.2.840.1 [id number] 289586 3131 Methodi 00:00:00 00:00:00 Moustapha Smith [address]35.1.[address] 3.430.2.7 Hospit a .3.980560 l .8 2021-02-21 2021-02-21 Sridevi Du 1.2.840.1 [id number] 004371 6082 Methodi 00:00:00 00:00:[address] 3.430.2.7 Hospit a .3.360034 l .8 2021-01-07 2021-01-07 [facility] [id number] Common 00:00:00 00:00:00 [facility] 2021-01-07 2021-01-07 Outpatient STLC STLC [id number] Common 00:00:00 00:00:00 [facility] 2020-12-28 2020-12-28 Travel 1.2.840.1 1.2.524.505 3480 990437 Methodi 00:00:00 00:00:[address] 3.430.2.7 0.2.7.3.698 Ho spita .3.606691 084.8 l .8 2020-12-28 2020-12-28 Outpatient ANA LAURA [facility] [id number] 152 [place] 00:00:00 00:00:[address] [facility] 2020-12-21 2020-12-21 Office Ana Laura 1.2.840.1 [id number] 0124 Methodi 12:20:32 16:33:51 Visit Manny Jim 45065.1.[address] 3.430.2.7 Hospit a .3.351680 l .8 2020-12-21 2020-12-21 [facility] [id number] [place] 08:46:00 08:46:00 54974 [facility] 2020-12-21 2020-12-21 Travel 1.2.840.1 1.2.933.301 4869 262392 Methodi 00:00:00 00:00:[address] 3.430.2.7 0.2.7.3.698 Ho spita .3.543526 084.8 l .8 2020-12-21 2020-12-21 Telephone Ricki De La Fuente 1.2.840.1 [id number] 21 [id number] Methodi 00:00:00 00:00:[address] 3.430.2.7 Hospit a .3.051151 l .8 2020-12-20 2020-12-20 Outpatient Van_T [facility] [id number]- [place] 09:12:00 09:12:00 89037 [facility] 2020-12-17 2020-12-17 Outpatient Van_T [facility] 694958- [place] 12:36:00 12:36:00 [facility] 2020-12-16 2020-12-16 Outpatient Van_T [facility] [id number]- [place] 10:36:00 10:36:00 [facility] 2020-12-16 2020-12-16 Outpatient Roc Viveros [facility] 83fb [id number] 00:00:00 00:00:00 Albert Valdivia [id number] 2020-12-15 2020-12-15 Outpatient Van_T [facility] 685397- 202 [place] 03:10:00 03:10:00 [facility] 2020-12-10 2020-12-10 Outpatient Van_T [facility] [id number]- [place] 09:51:00 09:51:00 66788 [facility] 2020-12-09 2020-12-09 Outpatient Van_T [facility] [id number]- [place] 01:46:00 01:46:00 27507 [facility] 2020-12-09 2020-12-09 Outpatient Roc Viveros [facility] 8508 [id number] 00:00:00 00:00:00 Albert Valdivia [id number] 2020-12-09 2020-12-09 Jeffery Du 1.2.840.1 [id number] 2100 355176 Methodi 00:00:00 00:00:[address] 3.430.2.7 Hospit a .3.773901 l .8 2020-11-29 2020-11-29 Outpatient ANA LAURA [facility] [id number] 983 [place] 00:00:00 00:00:00 MANNY [address] 2020-11-24 2020-11-24 Refill Ana Laura, 1.2.840.1 [id number] 6815 Methodi 00:00:00 00:00:00 M[address] Jim [address].1.[address] 3.430.2.7 Hospit a .3.947754 l .8 2020-11-17 2020-11-17 Yulisa Denson 1.2.840.1 [id number] 714 [id number] Methodi 00:00:00 00:00:00 Only Rhoda 04368.1.[address] 3.430.2.7 Hospit a .3.170840 l .8 2020-11-09 2020-11-09 Outpatient Van_T U [facility] [id number] [place] 03:36:00 03:36:00 61938 [facility] 2020-11-04 2020-11-04 Outpatient Van_T U [facility] [id number] [place] 02:39:00 02:39:00 87935 [facility] 2020-11-04 2020-11-04 Outpatient Roc Viveros [facility] 2533 [id number] 00:00:00 00:00:00 Albert Valdivia [id number] 2020-11-03 2020-11-03 Outpatient Van_T U [facility] [id number] [place] 10:05:00 10:05:00 15154 [facility] 2020-11-02 2020-11-02 Outpatient ST[facility] STLC [id number] Common 00:00:00 00:00:00 [facility] 2020-11-02 2020-11-02 Sridevi Du 1.2.840.1 [id number] [id number] 3231 Methodi 00:00:00 00:00:[address] 3.430.2.7 Hospit a .3.631093 l .8 2020-11-01 2020-11-01 Outpatient STLMLC ST[facility] [id number] Common 00:00:00 00:00:00 [facility] 2020-10-20 2020-10-20 Sridevi Du 1.2.840.1 [id number] 8387 Methodi 00:00:00 00:00:[address] 3.430.2.7 Hospit a .3.043515 l .8 2020-10-19 2020-10-19 Office Jeanne Susan 1.2.840.1 [id number] 2100 623310 Methodi 10:25:06 11:05:[address] 3.430.2.7 Hospit a .3.540626 l .8 2020-10-19 2020-10-19 Travel 1.2.840.1 1.2.232.684 6666 995965 Methodi 00:00:00 00:00:[address] 3.430.2.7 0.2.7.3.698 Ho spita .3.758537 084.8 l .8 2020-10-07 2020-10-07 Telephone Todd 1.2.840.1 [id number] 2099 [id number] Methodi 00:00:00 00:00:[address] [place] [address] 3.430.2.7 Hospit a .3.474110 l .8 2020-10-05 2020-10-05 Lab uSsan Angel 1.2.840.1 [id number] 2099 798639 Methodi 10:03:48 10:08:[address] 3.430.2.7 Hospit a .3.566780 l .8 2020-10-05 2020-10-05 Office Omaira Castillo 1.2.840. 1 [id number] Methodi 08:42:07 09:42:07 Visit Susan Angel 50919.1.[address] 3.430.2.7 Hospit a .3.003820 l .8 2020-10-04 2020-10-04 Office Jose, 1.2.840.1 [id number] 2932 Methodi 07:33:51 07:48:51 Visit Moustapha Smith 79517.1.[address] 3.430.2.7 Hospit a .3.486616 l .8 2020-10-04 2020-10-04 Travel 1.2.840.1 1.2.439.567 3432 611722 Methodi 00:00:00 00:00:[address] 3.430.2.7 0.2.7.3.698 Ho spita .3.473019 084.8 l .8 2020-09-21 2020-09-21 Office Andreea, 1.2.840.1 [id number] 47705 Methodi 08:13:45 08:33:45 Visit Omaira 12753.1.[address] Claudia 3.430.2.7 Hospi ta .3.763287 l .8 2020-09-21 2020-09-21 Orders Ricki De La Fuente 1.2.840.1 [id number] Methodi 00:00:00 00:00:[address] 3.430.2.7 Hospit a .3.859166 l .8 2020-09-21 2020-09-21 Travel 1.2.840.1 1.2.105.843 9749 757132 Methodi 00:00:00 00:00:[address] 3.430.2.7 0.2.7.3.698 Ho spita .3.580356 084.8 l .8 2020-09-14 2020-09-14 Telephone Miles, 1.2.840.1 [id number] 2099 [id number] Methodi 00:00:00 00:00:00 Moustapha Smith [address]179.1.[address] 3.430.2.7 Hospit a .3.833327 l .8 2020-09-06 2020-09-06 [id number] 5213 [place] 00:00:00 00:00:00 OMAIRA [address] 2020-09-03 2020-09-03 [facility] [id number] 1179 [place] 00:00:00 00:00:00 OMAIRA [address] 2020-09-03 2020-09-03 Travel 1.2.840.1 1.2.076.280 9288 152007 Methodi 00:00:00 00:00:[address] 3.430.2.7 0.2.7.3.698 Ho spita .3.267301 084.8 l .8 2020-08-26 2020-08-26 Lab Andreea, 1.2.840.1 [id number] 97055 Methodi 14:20:44 14:25:[address] Claudia 3.430.2.7 Hospi ta .3.190989 l .8 2020-08-26 2020-08-26 Office Andreea, 1.2.840.1 [id number] 28531 Methodi 12:54:06 14:16:01 Visit Omaira 78430.1.[address] Claudia 3.430.2.7 Hospi ta .3.926113 l .8 2020-08-26 2020-08-26 Travel 1.2.840.1 1.2.866.106 0040 403330 Methodi 00:00:00 00:00:[address] 3.430.2.7 0.2.7.3.698 Ho spita .3.989394 084.8 l .8 2020-08-16 2020-08-16 Orders Ricki De La Fuente 1.2.840.1 [id number] 2099 [id number] Methodi 00:00:00 00:00:[address] 3.430.2.7 Hospit a .3.158806 l .8 2020-08-06 2020-08-06 Telephone Ricki De La Fuente 1.2.840.1 [id number] Methodi 00:00:00 00:00:[address] 3.430.2.7 Hospit a .3.181911 l .8 2020-08-05 2020-08-05 Orders Ricki De La Fuente 1.2.840.1 [id number] 2099 886647 Methodi 00:00:00 00:00:[address] 3.430.2.7 Hospit a .3.597500 l .8 2020-06-15 2020-07-26 Clinical 1.2.840.1 [id number] 17381 Methodi 08:37:10 14:40:[address] 3.430.2.7 Hospit a .3.479392 l .8 2020-07-26 2020-07-26 Refill Ana Laura, 1.2.840.1 [id number] 502806 9954 Methodi 00:00:00 00:00:[address] M[address].1.[address] 3.430.2.7 Hospit a .3.420331 l .8 2020-07-26 2020-07-26 Refill Ana Laura, 1.2.840.1 [id number] 048683 5213 Methodi 00:00:00 00:00:[address] 3.430.2.7 Hospit a .3.058118 l .8 2020-07-22 2020-07-22 Travel 1.2.840.1 1.2.715.601 5291 070882 Methodi 00:00:00 00:00:[address] 3.430.2.7 0.2.7.3.698 spita .3.067986 084.8 l .8 2020-07-13 2020-07-13 Vernon Du, 1.2.840.1 [id number] 2100 205744 Methodi 00:00:00 00:00:[address] 3.430.2.7 Hospit a .3.294337 l .8 2020-07-06 2020-07-06 Office Miles, 1.2.840.1 [id number] 723532 3079 Methodi 14:40:46 14:55:46 Visit Moustapha Smith 58236.1.[address] 3.430.2.7 Hospit a .3.701256 l .8 2020-07-06 2020-07-06 Travel 1.2.840.1 1.2.126.629 7948 342397 Methodi 00:00:00 00:00:[address] 3.430.2.7 0.2.7.3.698 spita .3.681853 084.8 l .8 2020-06-29 2020-06-29 Telephone Du, 1.2.840.1 [id number] 2099 220963 Methodi 13:47:06 14:02:06 Lynnette Jim 16723.1.[address] 3.430.2.7 Hospit a .3.950400 l .8 2020-06-29 2020-06-29 Orders Ricki De La Fuente 1.2.840.1 [id number] 2099 027429 Methodi 00:00:00 00:00:[address] 3.430.2.7 Hospit a .3.040790 l .8 2020-06-21 2020-06-21 Telephone Jose, 1.2.840.1 [id number] 2099 179725 Methodi 00:00:00 00:00:00 Moustapha Smith 10347.1.[address] 3.430.2.7 Hospit a .3.678029 l .8 2020-05-18 2020-05-18 Outpatient [facility] [id number] 997 [place] 00:00:00 00:00:[address] 2020-03-18 2020-03-18 Outpatient 3 Bismark Mars [facility] ROF [id number] 12:46:00 12:46:00 Jerad Bismark [facility] 2020-03-16 2020-03-16 Outpatient MILES, [facility] [id number] 710 [place] 00:00:00 00:00:00 MOUSTAPHA [address] 2020 2020 Outpatient MILES, [facility] [id number] 058 [place] 00:00:00 00:00:00 MOUSTAPHA [address] 2020-01-26 2020-01-26 Outpatient MILES, [facility] [id number] [place] 00:00:00 00:00:[address] MOUSTAPHA [address] 2020-01-26 2020-01-26 Outpatient MILES, [facility] [id number] 629 [place] 00:00:00 00:00:[address] M[address]APHA [address] 2020-01-01 2020-01-01 Outpatient DU, [facility] [id number] 491 [place] 00:00:00 00:00:00 MANNY [address] 2019-12-30 2019-12-30 Outpatient DU, [facility] [id number] 454 [place] 00:00:00 00:00:00 MANNY [address] 2019-10-07 2019-10-07 Outpatient [facility] [id number] 916 [place] 00:00:00 00:00:[address] 2019-10-02 2019-10-02 Outpatient JOSE, [facility] 878 [id number] 006 [place] 00:00:00 00:00:00 MOUSTAPHA [address] 2019-09-29 2019-09-29 Outpatient JOSE, [facility] [id number] 653 [place] 00:00:00 00:00:00 MOUSTAPHA [address] 2019-09-29 2019-09-29 Outpatient JOSE, [facility] [id number] 654 [place] 00:00:00 00:00:00 MOUSTAPHA [address] 2019-09-18 2019-09-18 Outpatient JOSE, [facility] [id number] 233 [place] 00:00:00 00:00:00 MOUSTAPHA [address] 2019-09-18 2019-09-18 Outpatient [facility] [id number] [place] 00:00:00 00:00:[address] 2019-08-29 2019-08-29 Outpatient DU, [facility] [id number] 449 [place] 00:00:00 00:00:00 MANNY [address] 2019-08-25 2019-08-25 Outpatient [facility] [id number] 215 [place] 00:00:00 00:00:[address] 2019-07-29 2019-07-29 Outpatient JOSE, [facility] [id number] 028 [place] 00:00:00 00:00:00 MOUSTAPHA [address] 2019-07-24 2019-07-24 Outpatient DIMPLE, [facility] [id number] 138 [place] 00:00:00 00:00:00 CHONG [address] 2019-05-30 2019-05-30 Outpatient JOSE, [facility] 870 [id number] 197 [place] 00:00:00 00:00:00 MOUSTAPHA [address] 2019-04-27 2019-04-27 Outpatient MATTIE, [facility] 596 [id number] 667 [place] 00:00:00 00:00:00 KOENIG [address] 2019-02-13 2019-02-14 Outpatient ANA LAURA [facility] [id number] 795 [place] 00:00:00 00:00:00 MANNYALISHA Ontiveros [facility] 2013-08-06 2013-06-05 FURenay, CRIS WEAVERIE [id number] M [place] 07:40:00 16:18:01 Provider: SAMMIE Lawrence, Status: Pen, Time: 7:40 AM 2013-06-05 2013-06-05 AUDIT CRIS WEAVERIE [id number] M [place] 10:18:01 16:18:01 maria elena Osman 2012-12-07 2012-12-08 AUDIT CRIS WEAVERIE [id number] M [place] 19:04:39 00:04:17 maria elena Osman 2012-10-31 2012-10-05 POP, CRIS WEAVERIE [id number] M [place] 09:30:00 15:44:57 Provider: DEONDRE Daigle, Status: Pen, Time: 9:30 AM 2012-10-05 2012-10-05 AUDIT MEGKENYON MEGIE [id number] M [place] 10:45:16 15:44:57 maria elena Osman Results Test Description Test Time Test Comments Results Result Comments Source ECG 12 lead 2021-06-21 20:04:42 Test Item Value Reference Range Interpretation Comme nts Ventricular rate (test code = 253) Atrial rate (test code = 255) WV interval (test code = 266) QRSD interval (test code = 260) QT interval (test code = 264) QTC interval (test code = 265) P axis 1 (test code = 267) QRS axis 1 (test code = 268) T wave axis (test code = 270) EKG impression (test code = 273) Normal sinus rhythm-Nonspecific ST and T wave [facility] [id number] 01:20:20 Test Item Value Reference Range Interpretation Comments Case number (test code = [id number]) Surgical pathology See link below for report (test code = PDF Lab Report [id number]) Result status (test code This is Final Report = [id number]) for [id number] [facility] [id number] 17:23:00 Test Item Value Reference Interpretation Comments Range Glucose (test code 109 mg/dL 65-99 H Fasting = 2345-7) reference inter catalina For someone wit hout known diabetes, a glucose valuebe tween 100 and 125 mg/ dL is consistent withprediabetes and should be confi rmed with afollow-up test. BUN (test code = 24 mg/dL 7- 3094-0) Creatinine (test 1.68 mg/dL 0.70-1.11 H For patient s >49 code = 2160-0) years of age, the reference limit for Creatinine is approximately 1 3% higher for peopleidentifie d as -Vivi n. EGFR Non-Afr. See_Comment L [Automated me ssage] Tongan (test code The syst em which = 1396) generated this result transmit tisha reference range : > OR = 60 mL/min/1.73m2. The reference range was not used to interpret this result as normal/abnormal . EGFR See_Comment L [Automated mes nik] Tongan (test code The syst em which = 0185) generated this result transmit tisha reference range [...] . Sodium (test code = 137 mmol/L 462-680 3333-2) Potassium (test 4.5 mmol/L 3.5-5.3 code = 2823-3) Chloride (test code 102 mmol/L 98-110 = 2075-0) CO2 (test code = 27 mmol/L 20-32 2027-) Calcium (test code 9.3 mg/dL 8.6-10.3 = 54135-7) Protein (test code 6.8 g/dL 6.1-8.1 = 2885-2) Albumin, S (test 4.1 g/dL 3.6-5.1 code = 1751-7) Globulin, total See_Comment [Automated message] (test code = [place] [address]-8) generated this result transmit tisha reference range [...] RAC) Organization Information: Site ID: A [facility] Address: [address] [place] [phone] Director: Maxx Mejia Lab Interpretation Abnormal (test code = 33396-8) [facility] [id number] 17:23:00 Test Item Value Reference Range Interpretation Comments CRP (test code = 0.8 mg/L <8.0 1987-09) RAC (test code = Performing Organization RAC) Information: Site ID: [facility] Name: [facility] Address: [address] [place] [phone] Director: [place]x [place] [id number] complement [id number] 17:23:00 Test Item Value Reference Range Interpretation Comments C4 complement 24 mg/dL Reference Rang e<1 (test code = year: Not 4497-2) established1-14 years: -80 year s: 15-53> or = 81 years Not established RAC (test code = Performing RAC) Organization Information: Site ID: [facility] Name: [facility] Address: [address] [place] [phone] Director: Maxx [place]ri[place] [address] complement [id number] 17:23:00 Test Item Value Reference Range Interpretation Comments C3 complement 142 mg/dL Reference Rang e<1 (test code = year: Not 4485-9) established1-14 years: 8010859-42 savi rs: 82-185> or = 80 years No t established RAC (test code = Performing RAC) Organization Information: Site ID: [facility]GA Name: [facility] Address: [address] [place] [phone] Director: Maxx Jimenez [facility] with platelet and [id number] 17:23:00 Test Item Value Reference Range Interpretation Comments WBC (test code = See_Comment [Automated 2390-2) message] The system which generated this result transmitted reference range : 3.8 - 10.8 Thousand/uL. Th e reference range was not used to interpret this result as normal/abnormal . RBC (test code = See_Comment L [Automated 399-8) message] The system which generated this result [...] RAC) Organization Information: Site ID: RGA Name: [facility] Address: [address] [place], [place] [phone] Director: Maxx Mejia Lab Interpretation Abnormal (test code = 01331-9) [facility] [id number] 17:23:00 Test Item Value Reference Range Interpretation Comments Sedimentation rate 33 mm/h See_Comment H [Automat ed (test code = 4537-7) message ] The system which generated this result transmitted reference range : < OR = 20. The reference range was not used to interpret this result as normal/abnormal . RAC (test code = Performing RAC) Organization Information: Site ID: RGA Name: [facility] Address: [address] [place] [phone] Director: Maxx Mejia Lab Interpretation Abnormal (test code = 76552-0) [facility] with [id number] 17:23:00 Test Item Value Reference Range Interpretation Comments Color, UA (test code DARK YELLOW YELLOW = 5778-6) Appearance (test CLEAR CLEAR code = 5767-9) Specific gravity, 1.001-1.035 urine (test code = 5811-5) pH, urine (test code 5.0-8.0 = 5803-2) Glucose, urine (test NEGATIVE NEGATIVE code = 98820-6) Bilirubin, UA (test NEGATIVE NEGATIVE Verified by code = 5770-3) repeat analys is. Ketones, UA (test TRACE NEGATIVE A code = 2514-8) Occult blood, urine NEGATIVE NEGATIVE (test code = 5794-3) Protein, UA (test TRACE NEGATIVE A code = 24249-0) Nitrite, UA (test NEGATIVE NEGATIVE code = [...] code = NONE SEEN See_Comment [Autom ated 23937-9) message] The system which generated this result transmitted reference range : < OR = 2 /HPF. The reference range was not used to interpr et this result as normal/abnormal . Squamous epithelial 0-5 See_Comment [Automa tisha cells, UA (test code message ] The = 97727-5) system which generated this result transmitted reference [...] RAC) Organization Information: Site ID: RGA Name: [facility] Lab Address: [address] [place] [phone] Director: Maxx Mejia Lab Interpretation Abnormal (test code = 25951-9) [facility], [id number] 17:23:00 Test Item Value Reference Range Interpretation Comments Creatinine, urine 204 mg/dL 20-320 (mg/dL) (test code = 2161-8) Protein/Creat Ratio See_Comment H [Automa tisha (test code = 2890-2) message ] The system which generated this result transmitted reference range : 0.022 - 0.128 mg/mg creat. e reference range was not used to interpret this result as normal/abnormal . Protein, urine 36 mg/dL 5-25 H random (test code = 2888-6) RAC (test code = Performing RAC) Organization Information: Site ID: RGA Name: [facility] Address: [address] [place] [phone] Director: Maxx Mejia Lab Interpretation Abnormal (test code = 71456-3) [facility] antibodies, [id number] 17:23:00 Test Item Value Reference Range Interpretation Comments dsDNA Ab, Crithidia NEGATIVE NEGATIVE ([facility]) (test code = 6457-6) RAC (test code = RAC) Performing Organization Information: Site ID: EZ Name: [facility], Address: [address] [place] [phone] Director: Katrin Curran MD,PhD,TYESHA [facility] CenterCom[facility] [id number] 17:23:00 Test Item Value Reference Interpretation Comments [...] 1 3% higher for peopleidentifie d as -Vvii n. EGFR Non-Afr. See_Comment L [Automated me ssage] Tongan (test code The syst em which = 2775) generated this result transmit tisha reference range : > OR = 60 mL/min/1.73m2. The reference range was not used to interpret this result as normal/abnormal . EGFR See_Comment L [Automated mes nik] Tongan (test code The syst em which = 2774) generated this result transmit tisha reference range : > OR = 60 mL/min/1.73m2. The reference range was not used to interpret this result as normal/abnormal . BUN/creatinine See_Comment [Automated m essage] ratio (test code = The [employer] which 3097-3) generated this result transmit tisha reference range : 6 - 22 (calc). The reference range was not used to interpret this result as normal/abnormal . Sodium (test code = 137 mmol/L 437-520 8985-2) Potassium (test 4.5 mmol/L 3.5-5.3 code = 2823-3) Chloride (test code 102 mmol/L 98-110 = 2075-0) CO2 (test code = 27 mmol/L 20-32 2027-9) Calcium (test code 9.3 mg/dL 8.6-10.3 = 34352-2) Protein (test code 6.8 g/dL 6.1-8.1 = 2885-2) Albumin, S (test 4.1 g/dL 3.6-5.1 code = 1751-7) Globulin, total See_Comment [Automated message] (test code = [place] [address]-6) generated this result transmit tisha reference range : 1.9 - 3.7 g/dL (eli c). The reference r olivia was not used to interpret this result as normal/abnormal . Albumin/globulin See_Comment [Automated message] ratio (test code = [facility] which 1759-0) generated this result transmit tisha reference range : 1.0 - 2.5 (calc). T he reference range was not used to interpret this result as normal/abnormal . Total bilirubin 0.6 mg/dL 0.2-1.2 (test code = 1975-2) Alkaline 65 U/L 35-144 phosphatase (test code = 6768-6) AST (test code = 22 U/L 10-35 1920-8) ALT (test code = 22 U/L 946 1742-6) RAC (test code = Performing RAC) Organization Information: Site ID: DOT Name: [facility] Address: [address] [place] [address] Director: Maxx Mejia Lab Interpretation Abnormal (test code = 89494-9) [facility]-reactive [id number] 17:23:00 Test Item Value Reference Range Interpretation Comments CRP (test code = 0.8 mg/L <8.0 1987-09) RAC (test code = Performing Organization RAC) Information: Site ID: ROELA [facility]: [facility] Address: [address] [place] [address] Director: Maxx [place] [address] complement [id number] 17:23:00 Test Item Value Reference Range Interpretation Comments C4 complement 24 mg/dL Reference Rang e<1 (test code = year: Not 4497-06) established1-14 years: 79 year s: 15-53> or = 80 years Not established RAC (test code = Performing RAC) Organization Information: Site ID: DOT Name: [facility] Address: [address] [place] [address] Director: Maxx Cevallosridge [facility]3 complement [id number] 17:23:00 Test Item Value Reference Range Interpretation Comments C3 complement 142 mg/dL Reference Rang e<1 (test code = year: Not 9) established1-14 years: 99856-17 yea rs: 82-185> or = 80 years No t established RAC (test code = Performing RAC) Organization Information: Site ID: DOT Name: [facility] Address: [address] [place] [address] Director: Maxx Mejia [facility] CenterCBC with platelet and [id number] 17:23:00 Test Item Value Reference Range Interpretation Comments WBC (test code = See_Comment [Automated 0790-2) message] The system which generated this result [...] RAC) Organization Information: Site ID: A Name: [facility] Lab Address: [address] [place] [address] Director: Maxx Mejia Lab Interpretation Abnormal (test code = 94074-5) [facility] [id number] 17:23:00 Test Item Value Reference Range Interpretation Comments Sedimentation rate 33 mm/h See_Comment H [Automat ed (test code = 4537-7) message ] The system which generated this result transmitted reference range : < OR = 20. The reference range was not used to interpret this result as normal/abnormal . RAC (test code = Performing RAC) Organization Information: Site ID: A Name: [facility] Lab Address: [address] [place] [address] Director: Maxx Mejia Lab Interpretation Abnormal (test code = 46998-2) [facility] Center[facility]inalysis, automated with [id number] 17:23:00 Test Item Value Reference Range Interpretation Comments Color, UA (test code DARK YELLOW YELLOW = 5778-6) Appearance (test CLEAR CLEAR code = 5767-9) Specific gravity, 1.001-1.035 urine (test code = 5811-5) pH, urine (test code 5.0-8.0 = 5803-2) Glucose, urine (test NEGATIVE NEGATIVE code = 41863-0) Bilirubin, UA (test NEGATIVE NEGATIVE Verified by code = 5770-3) repeat analys is. Ketones, UA (test TRACE NEGATIVE A code = 6094-8) Occult blood, urine NEGATIVE NEGATIVE (test code = 5794-3) Protein, UA (test TRACE NEGATIVE A code = 06623-7) Nitrite, UA (test NEGATIVE NEGATIVE code = [...] code = NONE SEEN See_Comment [Autom ated 82243-5) message] The system which generated this result transmitted reference range : < OR = 2 /HPF. The reference range was not used to interpr et this result as normal/abnormal . Squamous epithelial 0-5 See_Comment [Automa tisha cells, UA (test code message ] The = 87945-3) system which generated this result transmitted reference [...] RAC) Organization Information: Site ID: RGA Name: [facility] Lab Address: [address] [place] [phone] Director: Maxx Mejia Lab Interpretation Abnormal (test code = 10169-2) [facility] protein/creatinine ratio, [id number] 17:23:00 Test Item Value Reference Range Interpretation [...] RAC) Organization Information: Site ID: RGA Name: [facility] Lab Address: [address] [place] [address] Director: Maxx Mejia Lab Interpretation Abnormal (test code = 70353-6) [facility] (dsDNA) antibodies, [id number] 17:23:00 Test Item Value Reference Range Interpretation Comments dsDNA Ab, Crithidia NEGATIVE NEGATIVE ([facility]) (test code = 6457-6) RAC (test code = RAC) Performing Organization Information: Site ID: EZ Name: [facility] [facility], Address: [address] [place] [phone] Director: Katrin Curran MD,PhD,TYESHA [facility] CenterCreatine kinase, total (CPK)2020-10-15 09:53:00 Test Item Value Reference Range Interpretation Comments Creatine kinase (test 81 U/L 44-196 code = 2157-6) RAC (test code = RAC) Performing Organization Information: Site ID: A Name: [facility] Address: [address] [place] [address] Director: Maxx Mejia [facility] CenterComplement activity, [id number] 09:53:00 Test Item Value Reference Range Interpretation Comments Complement activity, >60 31-60 H total (test code = 4532-8) RAC (test code = RAC) Performing Organization Information: Site ID: EZ Name: [employer] [facility], Address: [address] [place], [place] [address] Director: Katrin Curran MD,PhD,TYESHA Lab Interpretation (test Abnormal code = 48387-7) [facility] CenterRheumatoid [id number] 09:53:00 Test Item Value Reference Range Interpretation Comments Rheumatoid factor <14 See_Comment [Automate d (test code = message] The 44299-3) system which generated this result transmit tisha reference range : <14 IU/mL. The reference range was not used to interpret this result as normal/abnormal . RAC (test code = Performing RAC) Organization Information: Site ID: RGA Name: [facility] Address: [address] [place] [address] Director: Maxx Mejia [facility] CenterCardiolipin [id number] 09:53:00 Test Item Value Reference Interpretation Comments [...] MARCELLO >40 MPL /GPL, IgM or IgG anti-o6MIZlqmdb odies or a lupus anticoagulant). International consensus guide lines for APS suggest waiting at leas t 12 weeks before retesting to co nfirm antibody persis myles. The Systemic L upus International Collaborating C jcarlos immunological classification criteria for sy [facility] lupus erythemat osus (SLE) include t esting for isotype IgA , which has yet t o be incorporated in to APS criteria. Low l evel antiphospholipi d antibodies may sometimes be de tected in the setting of infection, drug therapy or agin g. RAC (test code = Performing RAC) Organization Information: Site ID: IG Name: [facility] Address: [address] [place] [address], [place] [address] Director: Dr. Maxx Mejia [facility] anticoagulant [id number] 09:53:00 Test Item Value Reference Interpretation Comments Range Lupus anticoagulant SEE NOTE NOT DETECTED A Lupus (test code = Anticoagulant i s 11678-3) NOT DETECTED. T his interpretation is basedon the following test results: PTT lupus See_Comment For more anticoagulant (test informat ion on this code = 00361-0) test, go to:http://vona niyah .Pickatalediagnosti cs.c om/faq/FEA03s7( This link is being provided for informational/e patricka tionalpurposes only.) [Automa tisha message] The sy [...] RAC) Organization Information: Site ID: EZ Name: [facility]Anyi m[facility]artney [facility], Address: [address] [place] [address] Director: Katrin Curran MD,PhD,TYESHA [facility] CenterVitamin D 25 hydroxy [id number] 09:53:00 Test Item Value Reference Range Interpretation [...] additional information, please refer to http://educatio n. PartSimple. Retidoc/faq/DFY904 (This link is being provided for informational/e du cational purpos es only.) RAC (test code = Performing RAC) Organization Information: Site ID: RGA Name: [facility] Lab Address: [address] [place] [address] Director: Maxx Mejia Lab Interpretation Abnormal (test code = 29755-7) [facility] CenterAldolase, [id number] 09:53:00 Test Item Value Reference Range Interpretation Comments Aldolase (test 3.9 U/L See_Comment [Automated code = 1761-6) message] The system which generated this result transmit tisha reference range : < OR = 8.1. The reference range was not used to interpret this result as normal/abnormal . RAC (test code = Performing RAC) Organization Information: Site ID: EZ Name: [facility], Address: [address] [place] [address] Director: Katrin Curran MD,PhD,TYESHA [facility] CenterCyclic citrullinated peptide antibody, [id number] 09:53:00 Test Item Value Reference Range Interpretation Comments Cyclic citrullin <16 UNITS Reference peptide Ab (test RangeNegati ve: code = 85888-2) <20W eak Positive: 20-39Moderate Positive: 40-59Strong Positive: > 59 RAC (test code = Performing RAC) Organization Information: Site ID: IG Name: [facility] Address: [address] [place] [address] Director: Dr. Maxx Jimenez HospitalSSA/SSB [id number] 09:53:00 Test Item Value Reference Range Interpretation Comments Sjogren's SS-A <1.0 NEG See_Comment [Automated antibody (test message] The code = 50979-7) system which generated this result transmit tisha reference range : <1.0 NEG AI. Th e reference range was not used to interpret this result as normal/abnormal . Sjogren's SS-B <1.0 NEG See_Comment [Automated antibody (test message] The code = 98632-2) system which generated this result transmit tisha reference range : <1.0 NEG AI. Th e reference range was not used to interpret this result as normal/abnormal . RAC (test code = Performing RAC) Organization Information: Site ID: IG Name: [facility] Lab Address: [address] [place] [address] Director: Dr. Maxx Jimenez HospitalANTINUCLEAR ANTIBODIES TITER AND [id number] 09:53:00 Test Item Value Reference Interpretation Comments Range DAO titer (test 1:320 titer H code = 5048-4) Reference Ran ge <1:40 Negative 1:40-1:80 Low Antibody Le lillian >1 :80 Elevated Antibody Level DAO pattern (test Nuclear, Speckled A Speck led pattern is code = 58974-7) associated w ith mixed connectivetissu e disease (MCTD), systemic lupus erythematosus(S LE), Sjogren's syndr ome, dermatomyositis , and systemic sclerosis/polym yosit is overlap. AC-2,4,5,29: Speckled International Consensus on AN A Patterns(https: //doi .org/10.1515/cc lm-20 18-0052) RAC (test code = Performing RAC) Organization Information: Site ID: IG Name: [facility] Lab Address: [address] [place] [address] Director: Dr. Maxx Mejia Lab Interpretation Abnormal (test code = 98312-4) [facility] 09:53:00 Test Item Value Reference Interpretation Comments Range dsDNA Ab, IU/mL H Immunoassay (test IU/mL code = 5130-0) Interpretatio n < or = 4 Negative 5-9 Indetermina te > or = 10 Posit marck Mireles antibody <1.0 NEG See_Comment [Automated m essage] (test code = The system [facility] 28739-2) generated this result transmitted ref erence range: <1.0 NEG AI. The reference range was not used to interpr et this result as normal/abnormal . REGISTERED NURSE FETAL-SM interp <1.0 NEG See_Comment [Automated me ssage] (test code = The system [facility] 09345-5) generated this result transmitted ref erence range: <1.0 NEG AI. The reference range was not used to interpr et this result as normal/abnormal . Ribonucleic <1.0 NEG See_Comment [Automated mes nik] antibody (REGISTERED NURSE FETAL) The system [facility] (test code = generated this result 61151-1) transmitted ref erence range: <1.0 NEG AI. The reference range was not used to interpr et this result as normal/abnormal . CHROMATIN <1.0 NEG See_Comment ANTIBODY PREVA LENCE IN (NUCLEOSOMAL) TIER 1 Suhail ble ANTIBODY (test stranded DNA (dsDNA) code = 67854-6) antibodies a re present in57% to 62% [...] syndr omeand 8% polymyositis . Ribonucleoprote in (REGISTERED NURSE FETAL) antibodies are to REGISTERED NURSE FETAL A and/or REGISTERED NURSE FETAL 68kD proteins; antib odies to one or both are present in >80% MCTD, 2 2% to 48% SLE, 14% systemicscleros is, 12% Sjogren's and 8 % polymyositis. Sm/REGISTERED NURSE FETAL antibodies are directed to epitopes for med vishal complex of Sm a nd REGISTERED NURSE FETAL; antibodies to t he Sm/RNPcomplex a re present in 54% to 94% MCTD, 30% SLE, 4%systemic scle rosis, and 9% Sjogren' s and polymyositis. Sm antibody is pre sent in 20% to 30% SLE, 8% MCTD,10% polymy ositis, 0% systemic scl erosis and 4%Sjogren's syndrome. Suhail ble stranded DNA, Chromatin, Ribonucleoprote in, Sm/REGISTERED NURSE FETAL complex and Sm antibodies are present in <2% of annmarie l blood donors. The Ca scade does not rule o ut autoimmune diseasecharacte rized by other autoantib ivelisse specificities s uchas rheumatoid arth ritis, autoimmune hepa titis, primarybiliary cirrhosis, auto immune thyroiditis, Roderick'sdiseas e, pernicious anem ia, autoimmune neuropathies,va sculitis , celiac diseas e and bullous disease .Please contact your lo eli [facility] laboratoryif yo u are interested in additional test ing. [Automated mess age] The system which ge nerated this result tra nsmitted reference range : <1.0 NEG AI. The ref erence range was not u sed to interpret this result as normal/abnor mal. RAC (test code = Performing RAC) Organization Information: Site ID: IG Name: [facility] Address: [address] [place] [address] Director: Dr. Maxx Mejia Lab Interpretation Abnormal (test code = 39689-9) [facility] CenterRibonucleic antibody (REGISTERED NURSE FETAL)2020-10-15 09:53:00 Test Item Value Reference Range Interpretation Comments Ribonucleic <1.0 NEG See_Comment [Automated antibody (REGISTERED NURSE FETAL) message] The (test code = system which 11901-6) generated this result transmitted reference range : <1.0 NEG AI. Th e reference range was not used to interpret this result as normal/abnormal . RAC (test code = Performing RAC) Organization Information: Site ID: IG Name: [facility] Address: [address] [place] [address] Director: Dr. Maxx Mejia [facility] reflex to [id number] 09:53:00 Test Item Value Reference Range Interpretation Comments TSH reflex to See_Comment [Automated FT4 (test code message] The system = 3016-3) which generated this result transmitted reference range : 0.40 - 4.50 mIU /L. The reference r olivia was not used to interpret this result as normal/abnormal . RAC (test code Performing = RAC) Organization Information: Site ID: RGA Name: [facility] Address: [address] [place] [address] Director: Maxx Mejia [facility] IFA, W/REFL TO TITER/PATTERN/[id number] 09:53:00 Test Item Value Reference Interpretation Comments Range DAO Screen (test POSITIVE NEGATIVE A DAO IFA is a first code = 74439-7) line screen for detecting thepr esence of up to approx imately 150 autoantibod ies invarious autoi mmune diseases. A pos itive DAO IFA resulti s suggestive of autoimmune dise ase and reflexes to tit er, pattern and the 3 tiered Multiple x 11 AntibodyCascade . Testing in the [place] stops at the firstpositive r esult, and does not pr eclude additionalposit marck results. Furthe r laboratory test ing may beconsidered if clinically yamile cated. For additional information, pl ease refer tohttp://educat ion.[facility], [facility] stDiagnostics.c om/faq/ ACL499(This diane k is being provided for informational/e ducatio nal purposes on ly.) RAC (test code = Performing RAC) Organization Information: Site ID: IG Name: [facility] Lab Address: [address] [place] [address] SAMEER Jaramillo [address] Director: Dr. Maxx Mejia Lab Interpretation Abnormal (test code = 84465-4) [facility] with MPO and PR3, with Reflex to ANCA Titer 2020-10-15 09:53:00 Test Item Value Reference Interpretation Comments Range ANCA screen (test NEGATIVE NEGATIVE ANCA Scre en includes code = 41713-1) evaluation f or p-ANCA, c-ANCA andatypical p-A [...] = t Detected> or = 1.0 AI 00975-6) Antibody Detect ed Autoantibodies to myeloperoxidase (MPO) [...] to interpret this result as normal/abnormal . WV-3 (protease) <1.0 See_Commen <1.0 AI No Antibody (test code = t Detected> or = 1.0 AI 39825-1) Antibody Detect ed Autoantibodies to proteinase-3 (P R-3) are accepted aschar acteristic for granulomatosis with polyangiitis (G PA,Sandor's), and are detecta ble in 95% of the histologica llyproven cases. The cyto plasmic IFA pattern, (c-ANC A), isbased largely on auto antibody to WV-3 which serv es as theprimary anti gen. These autoantibodies are present in activedisease. [Automated message] The sy stem which generated this result transmitted ref erence range: <1.0 AI. The re ference range was not used to interpret this result as normal/abnormal . RAC (test code = Performing RAC) Organization Information: Site ID: EZ Name: [facility], Address: [address] [place] [address] Director: Katrin Curran MD,PhD,TYESHA [facility] Sm/REGISTERED NURSE FETAL [id number] 09:53:00 Test Item Value Reference Range Interpretation Comments Mireles antibody <1.0 NEG See_Comment [Automated (test code = message] The 93146-8) system which generated this result transmit tisha reference range : <1.0 NEG AI. Th e reference range was not used to interpret this result as normal/abnormal . REGISTERED NURSE FETAL-SM interp <1.0 NEG See_Comment [Automated (test code = message] The 43088-2) system which generated this result transmit tisha reference range : <1.0 NEG AI. Th e reference range was not used to interpret this result as normal/abnormal . RAC (test code = Performing RAC) Organization Information: Site ID: IG Name: [facility] Lab Address: [address] [place] [address] Director: Dr. Maxx Mejia [facility] CenterBeta-2 glycoprotein 1 antibodies (IgG, IgA, IgM)2020-10-15 09:53:00 Test Item Value Reference Interpretation Comments Range Beta-2 <9 See_Comment [Automated mes nik] The glycoprotein 1 system which generated this antibody, IgG result transmi tted reference (test code = range: < OR = 2 0 SGU. The 04592-7) reference range was not used to interpret th is result as normal/abnormal . Beta-2 <9 See_Comment [Automated mes nik] The glycoprotein 1 system which generated this antibody, IgM result transmi tted reference (test code = range: < OR = 2 0 SMU. The 79253-1) reference range was not used to interpret th is result as normal/abnormal . Beta-2 <9 See_Comment The antiphospho lipid antibody glycoprotein 1 syndrome (APS ) gucci antibody, IgA clinical-patho logic (test code = correlation robbin t includesa 69127-1) clinical event (e.g. thrombosis, pre gnancyloss, thrombocytopeni a) and persistent positiveantipho spholipid antibodies (IgM or IgG MARCELLO>40 MPL/GPL,IgM or IgG anti-b2GPI antibodies ora lupus anticoagulant). International consensusguidel gary for APS suggest waiting at least 12weeks before retesting to confirm antibod ypersistence. The Systemic Jennifer pus [facility] llaborating Clinics immunologicalcl assification criteria for sy [facility] lupuserythemato alfonso (SLE) include testing for isotypeIgA, [...] RAC) Organization Information: Site ID: EZ Name: [facility] [facility], Address: [address] [place] [address] Director: Katrin Curran MD,PhD,TYESHA [facility] HospitalDirect antiglobulin test ([place])2020-10-15 09:53:00 Test Item Value Reference Range Interpretation Comments Direct antiglobulin NEGATIVE NEGATIVE test ([place]) (test code = 1007-4) RAC (test code = RAC) Performing Organization Information: Site ID: IG Name: [facility] Lab Address: [address] [place] [address] Director: Dr. Maxx Mejia [facility] HealthDouble-Stranded DNA (dsDNA) Antibodies, [id number] 09:53:00 Test Item Value Reference Interpretation Comments Range dsDNA Ab, IU/mL H Immunoassay (test IU/ mL code = 5130-0) Interpretatio n < or = 4 Negative 5-9 Indeterminate > or = 10 Positive RAC (test code = Performing RAC) Organization Information: Site ID: Name: [facility] Lab Address: [address] [place] [address] Director: Dr. Maxx Mejia Lab Interpretation Abnormal (test code = 84128-7) [facility] CenterCreatine kinase, total (CPK)2020-10-15 09:53:00 Test Item Value Reference Range Interpretation Comments Creatine kinase (test 81 U/L 44-196 code = 2157-6) RAC (test code = RAC) Performing Organization Information: Site ID: RGA Name: [facility] Address: [address] [place] [address] Director: Maxx Mejia [facility] HealthComplement activity, [id number] 09:53:00 Test Item Value Reference Range Interpretation Comments Complement activity, >60 31-60 H total (test code = 4532-8) RAC (test code = RAC) Performing Organization Information: Site ID: EZ Name: [facility], Address: [address] [place] [address] Director: Katrin Curran MD,PhD,TYESHA Lab Interpretation (test Abnormal code = 99944-1) [facility] HospitalRheumatoid [id number] 09:53:00 Test Item Value Reference Range Interpretation Comments Rheumatoid factor <14 See_Comment [Automate d (test code = message] The 91667-8) system which generated this result transmit tisha reference range : <14 IU/mL. The reference range was not used to interpret this result as normal/abnormal . RAC (test code = Performing RAC) Organization Information: Site ID: RGA Name: [facility] Address: [address] [place] [address] Director: Maxx Mejia [facility] [facility] CenterCardiolipin [id number] 09:53:00 Test Item Value Reference Interpretation Comments [...] MARCELLO >40 MPL /GPL, IgM or IgG anti-l7DWBqkuph odies or a lupus anticoagulant). International consensus guide lines for APS suggest waiting at leas t 12 weeks before retesting to co nfirm antibody persis tence. The Systemic L upus International Collaborating C jcarlos immunological classification criteria for [facility] lupus erythemat osus (SLE) include t esting for isotype IgA , which has yet t o be incorporated in to APS criteria. Low l evel antiphospholipi d antibodies may sometimes be de tected in the setting of infection, drug therapy or agin gLeta CHOWDHURY (test code = Performing RAC) Organization Information: Site ID: IG Name: [facility] Address: [address] [place] [address] Director: Dr. Maxx Mejia [facility] CenterLupus anticoagulant [id number] 09:53:00 Test Item Value Reference Interpretation Comments Range Lupus anticoagulant SEE NOTE NOT DETECTED A Lupus (test code = Anticoagulant i s 99282-5) NOT DETECTED. T his interpretation is basedon the following test results: PTT lupus See_Comment For more anticoagulant (test informat ion on this code = 38211-7) test, go to:http://argentina linder .theRightAPIosti cs.c om/faq/EAR21c4( This link is being provided for informational/e [...] RAC) Organization Information: Site ID: EZ Name: [facility]/Anyi mccartney [facility], Address: [address] [place] [address] Director: Katrin Curran MD,PhD,TYESHA [facility] CenterVitamin D 25 hydroxy [id number] 09:53:00 Test Item Value Reference Range Interpretation [...] 1 For additional information, please refer to [email or web address]://educkwameo [email or web address] Streamfile/faq/MHJ056 (This link is being provided for informational/e du cational purpos es only.) RAC (test code = Performing RAC) Organization Information: Site ID: RGA Name: [facility] Lab Address: [address] [place] [address] Director: Maxx Mejia Lab Interpretation Abnormal (test code = 92756-4) [facility] CenterAldolase, [id number] 09:53:00 Test Item Value Reference Range Interpretation Comments Aldolase (test 3.9 U/L See_Comment [Automated code = 1761-6) message] The system which generated this result transmit tisha reference range : < OR = 8.1. The reference range was not used to interpret this result as normal/abnormal . RAC (test code = Performing RAC) Organization Information: Site ID: EZ Name: [facility]/Chan [facility], Address: [address] [place] [address] Director: Katrin Curran MD,PhD,TYESHA [facility] CenterCyclic citrullinated peptide antibody, [id number] 09:53:00 Test Item Value Reference Range Interpretation Comments Cyclic citrullin <16 UNITS Reference peptide Ab (test RangeNegati ve: code = 36275-1) <20W eak Positive: 20-39Moderate Positive: 40-59Strong Positive: > 59 RAC (test code = Performing RAC) Organization Information: Site ID: IG Name: [facility] Lab Address: [address] [place] [address] Director: Dr. Maxx Mejia [facility] HospitalSSA/SSB [id number] 09:53:00 Test Item Value Reference Range Interpretation Comments Sjogren's SS-A <1.0 NEG See_Comment [Automated antibody (test message] The code = 00332-8) system which generated this result transmit tisha reference range : <1.0 NEG AI. Th e reference range was not used to interpret this result as normal/abnormal . Sjogren's SS-B <1.0 NEG See_Comment [Automated antibody (test message] The code = 06618-6) system which generated this result transmit tisha reference range : <1.0 NEG AI. Th e reference range was not used to interpret this result as normal/abnormal . RAC (test code = Performing RAC) Organization Information: Site ID: IG Name: [facility] Lab Address: [address] [place] [address] Director: Dr. Maxx Mejia [facility] CenterANTINUCLEAR ANTIBODIES TITER AND [id number] 09:53:00 Test Item Value Reference Interpretation Comments Range DAO titer (test 1:320 titer H code = 5048-4) Reference Ran ge <1:40 Negative 1:40-1:80 Low Antibody Le lillian >1 :80 Elevated Antibody Level DAO pattern (test Nuclear, Speckled A Speck led pattern is code = 30108-5) associated w ith mixed connectivetissu e disease (MCTD), systemic lupus erythematosus(S LE), Sjogren's syndr ome, dermatomyositis , and systemic sclerosis/polym yosit is overlap. AC-2,4,5,29: Speckled International Consensus on AN A Patterns(https: //doi .org/10.1515/cc lm-20 18-0052) RAC (test code = Performing RAC) Organization Information: Site ID: IG Name: [facility] Lab Address: [address] [place] [address] Director: Dr. Maxx Mejia Lab Interpretation Abnormal (test code = 53662-0) [facility] 09:53:00 Test Item Value Reference Interpretation Comments Range dsDNA Ab, IU/mL H Immunoassay (test IU/mL code = 5130-0) Interpretatio n < or = 4 Negative 5-9 Indetermina te > or = 10 Posit marck Mireles antibody <1.0 NEG See_Comment [Automated m essage] (test code = The system [facility] 19094-2) generated this result transmitted ref erence range: <1.0 NEG AI. The reference range was not used to interpr et this result as normal/abnormal . REGISTERED NURSE FETAL-SM interp <1.0 NEG See_Comment [Automated me ssage] (test code = The system [facility] 64680-6) generated this result transmitted ref erence range: <1.0 NEG AI. The reference range was not used to interpr et this result as normal/abnormal . Ribonucleic <1.0 NEG See_Comment [Automated mes nik] antibody (REGISTERED NURSE FETAL) The system [facility] (test code = generated this result 88647-1) transmitted ref erence range: <1.0 NEG AI. The reference range was not used to interpr et this result as normal/abnormal . CHROMATIN <1.0 NEG See_Comment ANTIBODY PREVA LENCE IN (NUCLEOSOMAL) TIER 1 Suhail ble ANTIBODY (test stranded DNA (dsDNA) code = 72391-3) antibodies a re present in57% to 62% [...] syndr omeand 8% polymyositis . Ribonucleoprote in (REGISTERED NURSE FETAL) antibodies are to REGISTERED NURSE FETAL A and/or REGISTERED NURSE FETAL 68kD proteins; antib odies to one or both are present in >80% MCTD, 2 2% to 48% SLE, 14% systemicscleros is, 12% Sjogren's and 8 % polymyositis. Sm/REGISTERED NURSE FETAL antibodies are directed to epitopes for med vishal complex of Sm a nd REGISTERED NURSE FETAL; antibodies to t he Sm/RNPcomplex a re present in 54% to 94% MCTD, 30% SLE, 4%systemic scle rosis, and 9% Sjogren' s and polymyositis. Sm antibody is pre sent in 20% to 30% SLE, 8% MCTD,10% polymy ositis, 0% systemic scl erosis and 4%Sjogren's syndrome. Suhail ble stranded DNA, Chromatin, Ribonucleoprote in, Sm/REGISTERED NURSE FETAL complex and Sm antibodies are present in <2% of annmarie l blood donors. The Ca scade does not rule o ut autoimmune diseasecharacte rized by other autoantib ivelisse specificities s uchas rheumatoid arth ritis, autoimmune hepa titis, primarybiliary cirrhosis, auto immune thyroiditis, [place]'sdiseas e, pernicious anem ia, autoimmune neuropathies,va sculitis , celiac diseas e and bullous disease .Please contact your lo eli [facility] cs laboratoryif yo u are interested in additional test ing. [Automated mess age] The system which ge nerated this result tra nsmitted reference range : <1.0 NEG AI. The ref erence range was not u sed to interpret this result as normal/abnor mal. RAC (test code = Performing RAC) Organization Information: Site ID: IG Name: [facility] Address: [address] [place] [address] Director: Dr. Maxx Mejia Lab Interpretation Abnormal (test code = 87365-2) [facility] CenterRibonucleic antibody (REGISTERED NURSE FETAL)2020-10-15 09:53:00 Test Item Value Reference Range Interpretation Comments Ribonucleic <1.0 NEG See_Comment [Automated antibody (REGISTERED NURSE FETAL) message] The (test code = system which 26622-3) generated this result transmitted reference range : <1.0 NEG AI. Th e reference range was not used to interpret this result as normal/abnormal . RAC (test code = Performing RAC) Organization Information: Site ID: IG Name: [facility] Lab Address: [address] [place] [address] Director: Dr. Maxx Mejia [facility] reflex to [id number] 09:53:00 Test Item Value Reference Range Interpretation Comments TSH reflex to See_Comment [Automated FT4 (test code message] The system = 3016-3) which generated this result transmitted reference range : 0.40 - 4.50 mIU /L. The reference r olivia was not used to interpret this result as normal/abnormal . RAC (test code Performing = RAC) Organization Information: Site ID: RGA Name: [facility] Address: [address] [place] [address] Director: Maxx Mejia [facility] IFA, W/REFL TO TITER/PATTERN/[id number] 09:53:00 Test Item Value Reference Interpretation Comments Range DOA Screen (test POSITIVE NEGATIVE A DAO IFA is a first code = 63813-4) line screen for detecting thepr esence of up to approx imately 150 autoantibod ies invarious autoi mmune diseases. A pos itive DAO IFA resulti s suggestive of autoimmune dise ase and reflexes to tit er, pattern and the 3 tiered Multiple x 11 AntibodyCascade . Testing in the [place] stops at the firstpositive r esult, and does not pr eclude additionalposit marck results. Furthe r laboratory test ing may beconsidered if clinically yamile cated. For additional information, pl ease refer tohttp://educat ion.[facility] stDiagnostics.c om/faq/ SRK192(This diane k is being provided for informational/e ducatio nal purposes on ly.) RAC (test code = Performing RAC) Organization Information: Site ID: IG Name: [facility] Address: [address] [place] [address] [place] [address] Director: Dr. Maxx Mejia Lab Interpretation Abnormal (test code = 57264-8) [facility] HospitalANCA Screen with MPO and PR3, with Reflex to ANCA Titer 2020-10-15 09:53:00 Test Item Value Reference Interpretation Comments Range ANCA screen (test NEGATIVE NEGATIVE ANCA Scre en includes code = 33133-9) evaluation f or p-ANCA, c-ANCA andatypical p-A [...] = t Detected> or = 1.0 AI 08407-9) Antibody Detect ed Autoantibodies to myeloperoxidase (MPO) [...] to interpret this result as normal/abnormal . WV-3 (protease) <1.0 See_Commen <1.0 AI No Antibody (test code = t Detected> or = 1.0 AI 96564-4) Antibody Detect ed Autoantibodies to proteinase-3 (P R-3) are accepted aschar acteristic for granulomatosis with polyangiitis (G PA,Sandor's), and are detecta ble in 95% of the histologica llyproven cases. The cyto plasmic IFA pattern, (c-ANC A), isbased largely on auto antibody to WV-3 which serv es as theprimary anti gen. These autoantibodies are present in activedisease. [Automated message] The sy stem which generated this result transmitted ref erence range: <1.0 AI. The re ference range was not used to interpret this result as normal/abnormal . RAC (test code = Performing RAC) Organization Information: Site ID: EZ Name: [facility], Address: [address] [place] [address] Director: Katrin Curran MD,PhD,TYESHA [facility] Sm/REGISTERED NURSE FETAL Boiwjsgmvb5425-10-11 09:53:00 Test Item Value Reference Range Interpretation Comments Mireles antibody <1.0 NEG See_Comment [Automated (test code = message] The 34877-5) system which generated this result transmit tisha reference range : <1.0 NEG AI. Th e reference range was not used to interpret this result as normal/abnormal . REGISTERED NURSE FETAL-SM interp <1.0 NEG See_Comment [Automated (test code = message] The 55837-1) system which generated this result transmit tisha reference range : <1.0 NEG AI. Th e reference range was not used to interpret this result as normal/abnormal . RAC (test code = Performing RAC) Organization Information: Site ID: IG Name: [facility] Lab Address: [address] [place] [address], [place] [address] Director: Dr. Maxx Mejia [facility] CenterBeta-2 glycoprotein 1 antibodies (IgG, IgA, IgM)2020-10-15 09:53:00 Test Item Value Reference Interpretation Comments Range Beta-2 <9 See_Comment [Automated [employer]] The glycoprotein 1 system which generated this antibody, IgG result transmi tted reference (test code = range: < OR = 2 0 SGU. The 84931-0) reference range was not used to interpret th is result as normal/abnormal . Beta-2 <9 See_Comment [Automated [employer]] The glycoprotein 1 system which generated this antibody, IgM result transmi tted reference (test code = range: < OR = 2 0 SMU. The 27139-2) reference range was not used to interpret th is result as normal/abnormal . Beta-2 <9 See_Comment The antiphospho lipid antibody glycoprotein 1 syndrome (APS ) gucci antibody, IgA clinical-patho logic (test code = correlation robbin t includesa 34505-2) clinical event (e.g. thrombosis, pre gnancyloss, thrombocytopeni a) and persistent positiveantipho spholipid antibodies (IgM or IgG MARCELLO>40 MPL/GPL,IgM or IgG anti-b2GPI antibodies ora lupus anticoagulant). International consensusguidel agry for APS suggest waiting at least 12weeks before retesting to confirm antibod ypersistence. The Systemic [facility] llaborating Clinics immunologicalcl assification criteria for [facility] lupuserythemato alfonso (SLE) include testing [...] RAC) Organization Information: Site ID: EZ Name: [facility]/Speedy denis [facility], Address: [address] [place] [address] Director: Katrin Curran MD,PhD,TYESHA [facility] HospitalDirect antiglobulin test ([place])2020-10-15 09:53:00 Test Item Value Reference Range Interpretation Comments Direct antiglobulin NEGATIVE NEGATIVE test ([place]) (test code = 1007-4) RAC (test code = RAC) Performing Organization Information: Site ID: IG Name: [facility] Lab Address: [address] [place] [address] Director: Dr. Maxx Mejia [facility] HealthDouble-Stranded DNA (dsDNA) Antibodies, [id number] 09:53:00 Test Item Value Reference Interpretation Comments Range dsDNA Ab, IU/mL H Immunoassay (test IU/ mL code = 5130-0) Interpretatio n < or = 4 Negative 5-9 Indeterminate > or = 10 Positive RAC (test code = Performing RAC) Organization Information: Site ID: IG Name: [facility] Lab Address: [address] [place] [address] Director: Dr. Maxx Mejia [facility] Interpretation Abnormal (test code = 77725-8) [facility] Cent[id number] 09:53:00InterpretationComment: dsDNA antibody is frequently positive in patients with systemic lupus erythematosus; however, it may be positive in a lesser percentage of patients with rheumatoidarthritis and other connective tissue disease. Apositive result at this stage of testing stops further testing, and does not preclude additional positiveantibodies. Clinical correlation is required to assess the need for testing additional analytes. [facility] Organization Information: Site ID: IG Name: [facility] Lab Address: [address] [place] [address] Director: Dr. Maxx Mejia [facility] Cen[id number] 09:53:00InterpretationComment: dsDNA antibody is frequently positive in patients with systemic lupus erythematosus; however, it may be positive in a lesser percentage of patients with rheumatoidarthritis and other connective tissue disease. Apositive result at this stage of testing stops further testing, and does not preclude additional positiveantibodies. Clinical correlation is required to assess the need for testing additional analytes. [facility]NE[facility] II[facility] Organization Information: Site ID: IG Name: [facility] Lab Address: [address] [place] [address] Director: Dr. Maxx Mejia [facility] CenterPSA, total and [id number] 23:08:00 Test Item Value Reference Interpretation Comments Range PSA (test code = 6.0 ng/mL See_Comment H [Automated message] 2857-1) The system [facility] generated this result transmitted ref erence range: < OR = 4 .0. The reference range was not used to int erpret this result as normal/abnormal . PSA, free (test 0.7 ng/mL code = 01895-5) PSA, free percent See_Comment L PSA(ng/mL ) Free (test code = PSA(%) 98200-5) Estimated(x) Probability of Cancer(as% )0-2.5 (*) Approx. 12.6-4.0(1) 0-27(2) 24(3)4.1-10( 4) 0-10 56 11-15 28 16-20 20 21-25 16 >or =26 8>10 (+) N/A >50 References:(1)Lucie hargrove et al.:Urology 60: 469-474 (2001) (2)Lilia ashford t al.:J.Urol 168: 922-925 (2001) Free PSA(% ) Sensitivity(%) Specificity(%) < or = 25 85 19 < or = 30 93 9 (3)Catalona et al.:KEM 277: 3045-1293 (1996 ) (4)Catalona et al.:KEM 279: 3032-3286 (1997 ) (x)These estima bonifacio vary with [...] P SA was performed using the Edgar PrivloImmunoas say method. Values obtained from differentassay methods cannot be used interchangeably . PSAlevels, rega rdless of value, shoul d not be interpreteda s absolute eviden ce of the presence or absence ofdisea se. [Automated mess age] The system [facility] generated this result transmitted ref erence range: >25 % (c alc). The reference r olivia was not used to interpret this result as normal/abnor mal. RAC (test code = Performing RAC) Organization Information: Site ID: IG Name: [facility] Lab Address: [address] [place] [address], [place] [address] Director: Dr. Maxx Mejia Lab Interpretation Abnormal (test code = 93226-6) [facility] CenterPS, total and [id number] 23:08:00 Test Item Value Reference Interpretation Comments Range PSA (test code = 6.0 ng/mL See_Comment H [Automated message] 0637-1) The system [facility] generated this result transmitted ref erence range: < OR = 4 .0. The reference range was not used to int erpret this result as normal/abnormal . PSA, free (test 0.7 ng/mL code = 66829-9) PSA, free percent See_Comment L PSA(ng/mL ) Free (test code = PSA(%) 12657-7) Estimated(x) Probability of Cancer(as% )0-2.5 (*) Approx. 12.6-4.0(1) 0-27(2) 24(3)4.1-10( 4) 0-10 56 11-15 28 16-20 20 21-25 16 >or =26 8>10 (+) N/A >50 References:(1)Lucie hargrove et al.:Urology 60: 469-474 (2001) (2)Lilia e t al.:J.Urol 168: 922-925 (2001) Free PSA(% ) Sensitivity(%) Specificity(%) < or = 25 85 19 < or = 30 93 9 (3)Catalona et al.:KEM 277: 4290-8254 (1996 ) (4)Catalona et al.:KEM 279: 2098-1768 (1997 ) (x)These estima bonifacio vary with [...] ofdisea se. [Automated mess age] The system [facility] generated this result transmitted ref erence range: >25 % (c alc). The reference r olivia was not used to interpret this result as normal/abnor mal. RAC (test code = Performing RAC) Organization Information: Site ID: IG Name: [facility] Lab Address: [address] [place] [address] Director: Dr. Maxx Mejia Lab Interpretation Abnormal (test code = 32534-0) [facility] CenterVitamin B12 [id number] 23:32:00 Test Item Value Reference Interpretation Comments Range Vitamin B12 280 pg/mL 200-1100 Please Note: A lthough the (test code = reference range for 2132-01) mludkggF25 is 2 00-1100 pg/mL, it has b een reported that between5 a nd 10% of patients with v alues between 200 and 400pg/m L may experience neur opsychiatric and hematologic abnormalities due to occult B 12 deficiency; les s than 1%of patients with v alues above 400 pg/mL will have symptoms. RAC (test Performing code = RAC) Organization Information: Site ID: RGA Name: [facility] Address: [address] [place] [address] Director: Maxx Mejia [facility] CenterVitamin B1 [id number] 23:32:00 Test Item Value Reference Range Interpretation Comments Vitamin B1 14 nmol/L 8-30 Vitamin (test code = supplementation 26287-9) within 24 hours prior to blood draw m ay affect the accu racy of results. This test was develo ped and its analyti eli performance characteristics have been determined by [facility]. It has not been cl eared or approved by theFDA. This as say has been valida tisha pursuant to the CLIA regulations and is used for clinic al purposes. RAC (test code Performing = RAC) Organization Information: Site ID: [facility] Name: [facility] Address: [address] [place] [address] Director: Rachid Ruiz M.D. [facility] CenterVitamin E level, plasma or [id number] 23:32:00 Test Item Value Reference Range Interpretation [...] analytical performance characteristics have been determined by [facility] . It has not been cl eared or approved by theFDA. This assay has been validated pursu ant to the CLIA regula tions and is used for clinical purpos es. Gamma-tocoph See_Comment This test was lorenzo mg/L developed and i ts (test code = analytical perf ormance 08164-3) characteristics have been determined by [facility] . It has not been cl eared or approved by theFDA. This assay has been validated pursu ant to the CLIA regula tions and is used for clinical purpos es. [Automated mess age] The system [facility] generated this result transmitted ref erence range: <4.4 mg/ L . The reference range was not used to int erpret this result as normal/abnormal . RAC (test Performing code = RAC) Organization Information: Site ID: [facility] Name: [facility] Address: [address] [place] [address] Director: Rachid Ruiz M.D. [facility] CenterMethylmalonic acid, [id number] 23:32:00 Test Item Value Reference Interpretation Comments Range Methylmalonic 376 nmol/L 87-318 H This test was developed and acid (test code = its analyt ical 96212-9) performancechar acteristics have been deter mined by [facility]. It has not beencleared or approved by FDA. This assay has been validatedpursua nt to the CLIA regulation s and is used for clinicalpur poses. RAC (test code = Performing RAC) Organization Information: Site ID: EZ Name: [facility]/Jenny wong [facility], Address: [address] [place] [address] Director: Katrin Curran MD,PhD,TYESHA Lab Abnormal Interpretation (test code = 66807-8) [facility] CenterANA SCREEN W IFA W REFLEX TO [id number] 23:32:00 Test Item Value Reference Interpretation Comments Range DAO Screen (test POSITIVE NEGATIVE A DAO IFA is a first code = 36003-3) line screen for detecting thepresence of up to approximately 1 50 autoantibodies invarious autoi mmune diseases. A pos itive DAO IFA resulti s suggestive of autoimmune dise ase and reflexes to titer and pattern. Fu rther laboratory test ing may beconsidere d if clinically indicated. For additional information, pl ease refer tohttp://educat ion.46elks/ faq/UYA298(This link is being provid ed for informational/e ducat ional purposes only.) DAO titer (test 1:320 titer H code = 5048-4) Reference Ran ge <1:40 Negative 1:40-1:80 Low Antibody Le lillian >1 :80 Elevated Antibody Level DAO pattern (test Nuclear, Speckled A Speck led pattern is code = 26357-8) associated w ith mixed connectivetissu e disease (MCTD), systemic lupus erythematosus(S LE), Sjogren's syndr ome, dermatomyositis , and systemic sclerosis/polym yosit is overlap. AC-2,4,5,29: Speckled International Consensus on AN A Patterns(https: //doi .org/10.1515/cc lm-20 18-0052) RAC (test code = Performing RAC) Organization Information: Site ID: IG Name: [facility] Address: [address] [place] [address] Director: Dr. Maxx Mejia Lab Interpretation Abnormal (test code = 02577-3) [facility] [id number] 23:32:00 Test Item Value Reference Interpretation Comments Range Vitamin B12 280 pg/mL 200-1100 Please Note: A lthough the (test code = reference range for 2132-01) [id number] is 2 00-1100 pg/mL, it has b een reported that between5 a nd 10% of patients with v alues between 200 and 400pg/m L may experience neur opsychiatric and hematologic abnormalities due to occult B 12 deficiency; les s than 1%of patients with v alues above 400 pg/mL will have symptoms. RAC (test Performing code = RAC) Organization Information: Site ID: RGA Name: [facility] Address: [address] [place] [address] Director: Maxx Mejia [facility]1 [id number] 23:32:00 Test Item Value Reference Range Interpretation Comments Vitamin B1 14 nmol/L 8-30 Vitamin (test code = supplementation 72507-3) within 24 hours prior to blood draw m ay affect the accu racy of results. This test was develo ped and its analyti eli performance characteristics have been determined by [facility]. It has not been cl eared or approved by theA. This as say has been valida tisha pursuant to the CLIA regulations and is used for clinic al purposes. RAC (test code Performing = RAC) Organization Information: Site ID: SLI Name: [facility] Address: [address] [place] [address] Director: Rachid Ruiz M.D. [facility] E level, plasma or [id number] 23:32:00 Test Item Value Reference Range Interpretation [...] analytical performance characteristics have been determined by [facility]. It has not been cl eared or approved by theFDA. This assay has been validated pursu ant to the CLIA regula tions and is used for clinical purpos es. Gamma-tocoph See_Comment This test was lorenzo mg/L developed and i ts (test code = analytical perf ormance 84523-7) characteristics have been determined by [facility]. It has not been cl eared or approved by theFDA. This assay has been validated pursu ant to the CLIA regula tions and is used for clinical purpos es. [Automated mess age] The system [facility] generated this result transmitted ref erence range: <4.4 mg/ L . The reference range was not used to int erpret this result as normal/abnormal . RAC (test Performing code = RAC) Organization Information: Site ID: SLI [facility] Address: [address] [place] [address] Director: Rachid Ruiz M.D. [facility] CenterMethylmalonic acid, [id number] 23:32:00 Test Item Value Reference Interpretation Comments Range Methylmalonic 376 nmol/L 87-318 H This test was developed and acid (test code = its analyt ical 73033-5) performancechar acteristics have been deter mined by [facility]. It has not beencleared or approved by FDA. This assay has been validatedpursua nt to the CLIA regulation s and is used for clinicalpur poses. RAC (test code = Performing RAC) Organization Information: Site ID: EZ Name: [facility], Address: [address] [place] [address] Director: Katrin Curran MD,PhD,TYESHA Lab Abnormal Interpretation (test code = 38214-6) [facility] S[facility]EN W IFA W REFLEX TO [id number] 23:32:00 Test Item Value Reference Interpretation Comments Range DAO Screen (test POSITIVE NEGATIVE A DAO IFA is a first code = 60650-4) line screen for detecting thepresence of up to approximately 1 50 autoantibodies invarious autoi mmune diseases. A pos itive DAO IFA resulti s suggestive of autoimmune dise ase and reflexes to titer and pattern. Fu rther laboratory test ing may beconsidere d if clinically indicated. For additional information, pl ease refer tohttp://educat ion.46elks/ faq/AMZ242(This link is being provid ed for informational/e ducat ional purposes only.) DAO titer (test 1:320 titer H code = 5048-4) Reference Ran ge <1:40 Negative 1:40-1:80 Low Antibody Le lillian >1 :80 Elevated Antibody Level DAO pattern (test Nuclear, Speckled A Speck led pattern is code = 09898-9) associated w ith mixed connectivetissu e disease (MCTD), systemic lupus erythematosus(S LE), Sjogren's syndr ome, dermatomyositis , and systemic sclerosis/polym yosit is overlap. AC-2,4,5,29: Speckled International Consensus on AN A Patterns(https: //doi .org/10.1515/cc lm-20 18-0052) RAC (test code = Performing RAC) Organization Information: Site ID: IG [facility]: [facility] Address: [address] [place] [phone] Director: Dr. Maxx Mejia Lab Interpretation Abnormal (test code = 32917-7) [facility]2021-04-21 23:32:00InterpretationComment: A faint IgG (kappa) monoclonal immunoglobulin is detected. IgM lambda monocl onal band present. [facility] Organization Information: Site ID: IG Name: [facility] Address: [address] [place] [phone] Director: Dr. Maxx Mejia [facility], [id number] 23:32:00InterpretationComment: A faint IgG (kappa) monoclonal immunoglobulin is detected. IgM lambda monocl onal band present. [facility] [employer] Organization Information: Site ID: IG Name: [facility] Address: [address] [place] [phone] Director: Dr. Maxx Mejia [facility] CenterMR LUMBAR [id number] 14:53:45 [facility] : 1940 Sex: MCLINICAL INDICATION: C61 Malignant neoplasm of prostateMODALITY: [employer] 3T MRI TECHNIQUE: Multiplanar multi sequence MRI [...] in Respiratory specimen by SHANE with probe [id number] 14:35:05 Test Item Value Reference Range Interpretation Comments SARS coronavirus 2 RNA Not detected Not-Detected [Presence] in Respiratory specimen by SHANE with probe detection (test code = 24413-0)
[2021-11-05 05:55] LABS: Absolute Lymphocytes (CBC) 1.1 K/uL (0.7-4.9); Hematocrit 36.3 % (39.6-49.0); MCV 95.2 fL (80-100); MPV 8.9 fL (7.6-11.3); RBC Red Blood Cell Count 3.81 M/uL (4.33-5.43)
[2021-11-05 06:13] LABS: Potassium 3.6 mmol/L (3.5-5.1)
--- NOTE | 2021-11-05 07:22 | EDPHYS ---
Physician Documentation [facility] Name: Vaughn Webb Age: 81 yrs Sex: Male : 1940 Arrival Date: 11/05/2021 Time: 05:29 Bed 5 Private MD: ED Physician Deuce Howard HPI: 11/05 05:40 This 81 yrs old Male presents to ER via EMS with complaints of Weakness. [facility] 05:40 The patient presents to the emergency department with weakness of the left lower mh7 extremity, that is severe, impaired coordination. Onset: The symptoms/episode began/occurred today, at 03:30. Context: occurred at home, occurred while the patient was standing. Associated signs and symptoms: Pertinent negatives: altered mental status, chills, dizziness, fever, headache, nausea, neck stiffness, paresthesias, seizure, syncope, near-syncope, blurred vision, double vision, visual field changes, loss of vision. Severity of symptoms: At their worst the symptoms were severe today, in the emergency department the symptoms have improved mildly. Patient's baseline: Neuro: alert and fully oriented, Motor: no deficits, Ambulation: walks with assist only, uses walker, Speech: normal, The patient has a previous history of CVA. Current symptoms: paralysis or paresis, of the left leg, that is complete. The patient has been recently been admitted at [facility], was discharged a couple of weeks ago. Historical: - Allergies: 05:40 Oxybutynin Chloride; 5 - Home Meds: 07:37 amlodipine 10 mg tab once daily [Active]; aspirin 81 mg Oral tab daily [Active]; vg1 citalopram 20 mg tab once daily [Active]; clopidogrel 75 mg oral tab once daily [Active]; pantoprazole 40 mg oral TbEC Every other day [Active]; B complex-minerals oral daily [Active]; metoprolol tartrate 50 mg Oral tab 2 times per day [Active]; ezetimibe 10 mg oral tab once daily [Active]; rosuvastatin 40 mg oral tab once daily [Active]; hydralazine 25 mg Oral tab TID [Active]; Vitamin D Oral daily [Active]; - PMHx: 05:40 Hyperlipidemia; Hypertension; PROSTATE CA; Cerebrovascular accident; Kidney disease; sm5 - Immunization history:: Client reports receiving the 2nd dose of the Covid vaccine. - Social history:: Smoking status: Patient/guardian denies using tobacco, the patient reports quitting approximately 40 years ago. ROS: 05:40 Constitutional: Negative for fever, chills, and weight loss, Eyes: Negative for injury, mh7 pain, redness, and discharge, ENT: Negative for injury, pain, and discharge, Neck: Negative for injury, pain, and swelling, Cardiovascular: Negative for chest pain, palpitations, and edema, Respiratory: Negative for shortness of breath, cough, wheezing, and pleuritic chest pain, Abdomen/GI: Negative for abdominal pain, nausea, vomiting, diarrhea, and constipation, Back: Negative for injury and pain, : Negative for injury, bleeding, discharge, and swelling, MS/Extremity: Negative for injury and deformity, Skin: Negative for injury, rash, and discoloration, Psych: Negative for depression, anxiety, suicide ideation, homicidal ideation, and hallucinations, Allergy/Immunology: Negative for hives, rash, and allergies, Endocrine: Negative for neck swelling, polydipsia, polyuria, polyphagia, and marked weight changes, Hematologic/Lymphatic: Negative for swollen nodes, abnormal bleeding, and unusual bruising. Exam: 05:40 Constitutional: This is a well developed, well nourished patient who is awake, alert, mh7 and in no acute distress. Head/Face: Normocephalic, atraumatic. Eyes: Pupils equal round and reactive to light, extra-ocular motions intact. Lids and lashes normal. Conjunctiva and sclera are non-icteric and not injected. Cornea within normal limits. Periorbital areas with no swelling, redness, or edema. Neck: Trachea midline, no thyromegaly or masses palpated, and no cervical lymphadenopathy. Supple, full range of motion without nuchal rigidity, or vertebral point tenderness. No Meningismus. Chest/axilla: Normal chest wall appearance and motion. Nontender with no deformity. No lesions are appreciated. Cardiovascular: Regular rate and rhythm with a normal S1 and S2. No gallops, murmurs, or rubs. Normal PMI, no JVD. No pulse deficits. Respiratory: Lungs have equal breath sounds bilaterally, clear to auscultation and percussion. No rales, rhonchi or wheezes noted. No increased work of breathing, no retractions or nasal flaring. Abdomen/GI: Soft, non-tender, with normal bowel sounds. No distension or tympany. No guarding or rebound. No evidence of tenderness throughout. Back: No spinal tenderness. No costovertebral tenderness. Full range of motion. Skin: Warm, dry with normal turgor. Normal color with no rashes, no lesions, and no evidence of cellulitis. 05:40 Psych: Awake, alert, with orientation to person, place and time. Behavior, mood, and affect are within normal limits. 05:40 Musculoskeletal/extremity: Extremities: noted in the left leg: decreased ROM. 05:40 Neuro: Orientation: is normal, Mentation: is normal, Memory: is normal, Cranial nerves: grossly normal, Cerebellar function: is grossly normal, Motor: Strength is 1/5 in the left leg, Sensation: no obvious gross deficits, Gait: not tested. seizure activity, is not displayed by the patient, Abnormal movements: there are no abnormal movements. Vital Signs: 05:34 Weight 72.5 kg (M); bb 05:38 BP 171 / 71; Pulse 64; Resp 11; Pulse Ox 100% on R/A; Height 5 ft. 11 in. (180.34 cm); sm5 Pain 0/10; 06:37 BP 162 / 63; Pulse 55; Resp 16; Pulse Ox 100% on R/A; sm5 07:24 BP 161 / 66; Pulse 62; Resp 13; Pulse Ox 100% on R/A; vg1 08:30 BP 143 / 64; Pulse 57; Resp 16; Pulse Ox 100% ; vg1 05:38 Body Mass Index 22.29 (72.50 kg, 180.34 cm) sm5 NIH Stroke Scale Scores: 05:30 NIHSS Score: 3 sm5 05:40 NIHSS Score: 3 mh7 [place] Coma Score: 05:40 Eye Response: spontaneous(4). Verbal Response: oriented(5). Motor Response: obeys mh7 commands(6). Total: 15. MDM: 07:07 Data reviewed: vital signs, nurses notes, EMS record, old medical records, lab test 7 result(s). 07:18 Data interpreted: Pulse oximetry: on room air is 100 %. Interpretation: normal. mh7 Counseling: I had a detailed discussion with the patient and/or guardian regarding: the historical points, exam findings, and any diagnostic results supporting the discharge/admit diagnosis, the presence of at least one elevated blood pressure reading (>120/80) during this emergency department visit, lab results, radiology results, the need for further work-up and treatment in the hospital. Response to treatment: the patient's symptoms have mildly improved after treatment. Physician consultation: Anthony Adair MD was contacted at 06:00, regarding patient's condition, and will see patient in inpatient room, Patient not a candidate for thrombolytics due recent infarct. Thrombolytics may lead to bleeding into the recent cerebellar infarct.. 07:21 Patient medically screened. 7 11/05 05:33 Order name: Basic Metabolic Panel; Complete Time: 07: 11/05 05:33 Order name: CBC with Diff; Complete Time: 07: 11/05 05:33 Order name: Protime (+inr); Complete Time: 07: 11/05 05:33 Order name: Ptt, Activated; Complete Time: 07: 11/05 05:50 Order name: Glucose, Ancillary Testing; Complete Time: 07:01 [facility] 11/05 09:04 Order name: Urinalysis [facility] 11/05 09:04 Order name: CBC with Automated Diff [facility] 11/05 09:04 Order name: CBC with Automated Diff [facility] 11/05 09:04 Order name: Lipid Profile [facility] 11/05 09:04 Order name: Lipid Profile [facility] 11/05 09:04 Order name: Magnesium [facility] 11/05 09:04 Order name: Magnesium [facility] 11/05 10:00 Order name: Glucose, Ancillary Testing [facility] 11/05 10:06 Order name: Urine Dipstick-Ancillary [facility] 11/05 05:31 Order name: CT Stroke Brain w/o Contrast lp1 11/05 05:33 Order name: Stroke CXR 1 View 11/05 05:33 Order name: EKG; Complete Time: 05:34 11/05 05:33 Order name: Accucheck; Complete Time: 05:44 11/05 05:33 Order name: Cardiac monitoring; Complete Time: 05:44 11/05 05:33 Order name: EKG - Nurse/Tech; Complete Time: 06:30 11/05 05:33 Order name: IV Saline Lock; Complete Time: 05:44 wm 11/05 05:33 Order name: Labs collected and sent; Complete Time: 05:44 wm 11/05 05:33 Order name: NPO; Complete Time: 05:44 wm 11/05 05:33 Order name: O2 Per Protocol; Complete Time: 05:44 11/05 09:04 Order name: Heart Healthy EDNC 11/05 10:20 Order name: Urine Dipstick-Ancillary [facility] 11/05 10:22 Order name: SARS-COV-2 RT PCR (Document "Date of Onset" if Symptomatic) eb 11/05 11:42 Order name: SARS-COV-2 RT PCR [facility] 11/05 11:46 Order name: Glucose, Ancillary Testing [facility] 11/05 13:24 Order name: MRI EDNC 11/05 05:33 Order name: O2 Sat Monitoring; Complete Time: 05:44 11/05 05:33 Order name: Stroke Swallow Screen; Complete Time: 07:05 wm Administered Medications: No medications were administered Point of Care Testing: Blood Glucose: 05:43 Blood Glucose: 98 mg/dL; sm5 Ranges: Critical Glucose Levels:Adult <50 mg/dl or >400 mg/dl <40 mg/dl or >180 mg/dl Disposition Summary: 11/05/21 07:21 Hospitalization Ordered Hospitalization Status: Inpatient Admission [facility] Provider: Aamir Carcamo [facility] Location: Telemetry/MedSur (Inpatient) [facility] Condition: Stable [facility] Problem: new [facility] Symptoms: have improved [facility] Bed/Room Type: Standard [facility] Room Assignment: 219(11/05/21 12:37) Diagnosis - Cerebral infarction, unspecified [facility] Forms: - Medication Reconciliation Form [facility] - SBAR form [facility] NIH Stroke Scale - NIH Stroke Score Date: 11/05/2021 Time: 05:30 Total Score = 3 1a. Level of Consciousness (LOC) - 0(Alert) 1b. Level of Consciousness (LOC) (Month \\T\\ Age) - 0(Both) 1c. LOC Commands (Open \\T\\ Closes Eyes/Traveling Nurse) - 0(Both) 2. Best Gaze (Lateral Gaze Paresis) - 0(Normal) 3. Visual Field Loss - 0(No visual loss) 4. Facial Palsy - 0(Normal) 5a. Left Arm: Motor (10-second hold) - 0(No drift) 5b. Right Arm: Motor (10-second hold) - 0(No drift) 6a. Left Leg: Motor (5-second hold - always test supine) - 3(No effort against gravity) 6b. Right Leg: Motor (5-second hold - always test supine) - 0(No drift) 7. Limb Ataxia (finger/nose \\T\\ heel/traore - test with eyes open) - 0(Absent) 8. Sensory Loss (pinprick arms/legs/face) - 0(Normal) 9. Best Language: Aphasia (description/naming/reading) - 0(No aphasia) 10. Dysarthria (speech clarity - read or repeat words) - 0(Normal) 11. Extinction and Inattention (visual/tactile/auditory/spatial/personal) - 0(No abnormality) Initials: [facility] NIH Stroke Scale - NIH Stroke Score Date: 11/05/2021 Time: 05:40 Total Score = 3 1a. Level of Consciousness (LOC) - 0(Alert) 1b. Level of Consciousness (LOC) (Month \\T\\ Age) - 0(Both) 1c. LOC Commands (Open \\T\\ Closes Eyes/Traveling Nurse) - 0(Both) 2. Best Gaze (Lateral Gaze Paresis) - 0(Normal) 3. Visual Field Loss - 0(No visual loss) 4. Facial Palsy - 0(Normal) 5a. Left Arm: Motor (10-second hold) - 0(No drift) 5b. Right Arm: Motor (10-second hold) - 0(No drift) 6a. Left Leg: Motor (5-second hold - always test supine) - 3(No effort against gravity) 6b. Right Leg: Motor (5-second hold - always test supine) - 0(No drift) 7. Limb Ataxia (finger/nose \\T\\ heel/traore - test with eyes open) - 0(Absent) 8. Sensory Loss (pinprick arms/legs/face) - 0(Normal) 9. Best Language: Aphasia (description/naming/reading) - 0(No aphasia) 10. Dysarthria (speech clarity - read or repeat words) - 0(Normal) 11. Extinction and Inattention (visual/tactile/auditory/spatial/personal) - 0(No abnormality) Initials: [facility] Signatures: Dispatcher [employer] EDMS Arellano, Nadiya eb Bernardino, Solange, RN RN vg1 Deuce Howard MD MD 7 Bia Brownlee Sarah, RN RN sm5 Corrections: (The following items were deleted from the chart) 12:37 07:21 george mcdonough
--- NOTE | 2021-11-05 07:22 | ER ---
Nurse's Notes [facility] Name: Vaughn Webb Age: 81 yrs Sex: Male : 1940 Arrival Date: 11/05/2021 Time: 05:29 Bed 5 Private MD: Diagnosis: Cerebral infarction, unspecified Presentation: 11/05 05:38 Chief complaint: Patient states: pt got up to go to the bathroom and stated that when 5 he was trying to get back to bed his L leg gave out and is unable to lift it. Coronavirus screen: Vaccine status: Patient reports receiving the 2nd dose of the covid vaccine. Ebola Screen: No symptoms or risks identified at this time. Initial Sepsis Screen: Does the patient meet any 2 criteria? No. Patient's initial sepsis screen is negative. Does the patient have a suspected source of infection? No. Patient's initial sepsis screen is negative. Risk Assessment: Do you want to hurt yourself or someone else? Patient reports no desire to harm self or others. Onset of symptoms was November 05, 2021 at 03:30. 05:38 Method Of Arrival: EMS: [facility] 05:38 Acuity: PEDRO LUIS 3 [facility] Triage Assessment: 05:42 General: Appears in no apparent distress. Behavior is cooperative. Pain: Denies pain. [facility] Neuro: Level of Consciousness is awake, alert, obeys commands, Oriented to person, place, time, situation, Fourth Mate are equal bilaterally Weakness in left leg(s) Speech is normal, Facial symmetry appears normal. Cardiovascular: Capillary refill < 3 seconds Patient's skin is warm and dry. Respiratory: Airway is patent Trachea midline Respiratory effort is even, unlabored. Historical: - Allergies: 05:40 Oxybutynin Chloride; 5 - Home Meds: 07:37 amlodipine 10 mg tab once daily [Active]; aspirin 81 mg Oral tab daily [Active]; vg1 citalopram 20 mg tab once daily [Active]; clopidogrel 75 mg oral tab once daily [Active]; pantoprazole 40 mg oral TbEC Every other day [Active]; B complex-minerals oral daily [Active]; metoprolol tartrate 50 mg Oral tab 2 times per day [Active]; ezetimibe 10 mg oral tab once daily [Active]; rosuvastatin 40 mg oral tab once daily [Active]; hydralazine 25 mg Oral tab TID [Active]; Vitamin D Oral daily [Active]; - PMHx: 05:40 Hyperlipidemia; Hypertension; PROSTATE CA; Cerebrovascular accident; Kidney disease; sm5 - Immunization history:: Client reports receiving the 2nd dose of the Covid vaccine. - Social history:: Smoking status: Patient/guardian denies using tobacco, the patient reports quitting approximately 40 years ago. Screenin:43 Abuse screen: Denies threats or abuse. Denies injuries from another. Nutritional sm5 screening: No deficits noted. Tuberculosis screening: No symptoms or risk factors identified. Fall Risk None identified. 06:00 The patient has not been NPO before screening. The patient is alert, able to follow sm5 commands. The patient does not exhibit slurred or garbled speech The patient is not exhibiting difficulty speaking. The patient does not exhibit difficulty understanding words. The patient is able to swallow own secretions with no drooling or need for suction. Patient tolerated one teaspoon of water. No drooling, immediate coughing, gurgling, or clearing of the throat was noted. The patient tolerated 90mL of water. No drooling, immediate coughing, gurgling, or clearing of the throat was noted. The patient passed the bedside swallow screening. Oral medications may be given as ordered. Contact Physician for further diet orders. Assessment: 05:45 Reassessment: see triage assessment. sm5 06:37 Reassessment: No changes from previously documented assessment. Patient and/or family sm5 updated on plan of care and expected duration. Pain level reassessed. 07:21 Reassessment: Pt spouse stated about 30 minutes ago 'he began to start having tremors; vg1 if he concentrates he can control it, but it comes and goes'. General: Appears in no apparent distress. uncomfortable, Behavior is calm, cooperative. Pain: Denies pain. Neuro: Level of Consciousness is awake, alert, obeys commands, Oriented to person, place, time, situation, Fourth Mate are weak on left Weakness in left leg(s) Gait is unable to assess at this time. Speech is normal, Facial symmetry appears normal. Cardiovascular: Patient's skin is warm and dry. Respiratory: Airway is patent Respiratory effort is even, unlabored. GI: No signs and/or symptoms were reported involving the gastrointestinal system. : No signs and/or symptoms were reported regarding the genitourinary system. EENT: No signs and/or symptoms were reported regarding the EENT system. Derm: Skin is intact, Skin is pink, warm \T\ dry. Musculoskeletal: Range of motion: limited in left leg. 08:30 Reassessment: Patient appears in no apparent distress at this time. Patient is alert, vg1 oriented x 3, equal unlabored respirations, skin warm/dry/pink. pt resting with eyes closed; spouse at bedside. Vital Signs: 05:34 Weight 72.5 kg (M); bb 05:38 BP 171 / 71; Pulse 64; Resp 11; Pulse Ox 100% on R/A; Height 5 ft. 11 in. (180.34 cm); 5 Pain 0/10; 06:37 BP 162 / 63; Pulse 55; Resp 16; Pulse Ox 100% on R/A; sm5 07:24 BP 161 / 66; Pulse 62; Resp 13; Pulse Ox 100% on R/A; vg1 08:30 BP 143 / 64; Pulse 57; Resp 16; Pulse Ox 100% ; vg1 05:38 Body Mass Index 22.29 (72.50 kg, 180.34 cm) 5 Sparkle Coma Score: 05:40 Eye Response: spontaneous(4). Verbal Response: oriented(5). Motor Response: obeys [facility] commands(6). Total: 15. NIH Stroke Scale Scores: 05:30 NIHSS Score: 3 5 05:40 NIHSS Score: 3 7 ED Course: 05:29 Patient arrived in ED. 05:38 Rupa Thakkar RN is Primary Nurse. [facility] 05:40 CT Stroke Brain w/o Contrast In Process Unspecified. EDMS 05:40 Triage completed. 5 05:43 Arm band placed on right wrist. [facility] 05:44 Deuce Howard MD is Attending Physician. [facility] 05:44 Patient has correct armband on for positive identification. Bed in low position. Call [facility] light in reach. Side rails up X2. Client placed on continuous cardiac and pulse oximetry monitoring. NIBP monitoring applied. 05:44 Inserted saline lock: 20 gauge in right antecubital area, using aseptic technique. [facility] Blood collected. 05:44 Basic Metabolic Panel Sent. sm5 05:44 CBC with Diff Sent. sm5 05:44 Protime (+inr) Sent. sm5 05:44 Ptt, Activated Sent. sm5 05:56 Stroke CXR 1 View In Process Unspecified. EDMS 07:21 Aamir Carcamo MD is Hospitalizing Provider. [facility] 07:[address] Shweta Castillo paged at [phone] at the request of the patient's eb family. Columba from the answering service will page out Dr. Castillo. 08:17 the outside contractor sales neurologist covering for Dr. Vasquez says there isn't anything he can do if [facility] is at capacity/ he will let Shweta know the patient is here/ that they can continue to try transferring the patient if the patient wants to be transferred. Administered Medications: No medications were administered Medication: 05:44 VIS not applicable for this client. 5 Point of Care Testing: Blood Glucose: 05:43 Blood Glucose: 98 mg/dL; [facility] Ranges: Outcome: 07:21 Decision to Hospitalize by Provider. [facility] 13:33 Patient left the ED. vg1 NIH Stroke Scale - NIH Stroke Score Date: 11/05/2021 Time: 05:30 Total Score = 3 1a. Level of Consciousness (LOC) - 0(Alert) 1b. Level of Consciousness (LOC) (Month \T\ Age) - 0(Both) 1c. LOC Commands (Open \T\ Closes Eyes/District Sales Coordinator) - 0(Both) 2. Best Gaze (Lateral Gaze Paresis) - 0(Normal) 3. Visual Field Loss - 0(No visual loss) 4. Facial Palsy - 0(Normal) 5a. Left Arm: Motor (10-second hold) - 0(No drift) 5b. Right Arm: Motor (10-second hold) - 0(No drift) 6a. Left Leg: Motor (5-second hold - always test supine) - 3(No effort against gravity) 6b. Right Leg: Motor (5-second hold - always test supine) - 0(No drift) 7. Limb Ataxia (finger/nose \T\ heel/traore - test with eyes open) - 0(Absent) 8. Sensory Loss (pinprick arms/legs/face) - 0(Normal) 9. Best Language: Aphasia (description/naming/reading) - 0(No aphasia) 10. Dysarthria (speech clarity - read or repeat words) - 0(Normal) 11. Extinction and Inattention (visual/tactile/auditory/spatial/personal) - 0(No abnormality) Initials: 5 NIH Stroke Scale - NIH Stroke Score Date: 11/05/2021 Time: 05:40 Total Score = 3 1a. Level of Consciousness (LOC) - 0(Alert) 1b. Level of Consciousness (LOC) (Month \T\ Age) - 0(Both) 1c. LOC Commands (Open \T\ Closes Eyes/District Sales Coordinator) - 0(Both) 2. Best Gaze (Lateral Gaze Paresis) - 0(Normal) 3. Visual Field Loss - 0(No visual loss) 4. Facial Palsy - 0(Normal) 5a. Left Arm: Motor (10-second hold) - 0(No drift) 5b. Right Arm: Motor (10-second hold) - 0(No drift) 6a. Left Leg: Motor (5-second hold - always test supine) - 3(No effort against gravity) 6b. Right Leg: Motor (5-second hold - always test supine) - 0(No drift) 7. Limb Ataxia (finger/nose \T\ heel/traore - test with eyes open) - 0(Absent) 8. Sensory Loss (pinprick arms/legs/face) - 0(Normal) 9. Best Language: Aphasia (description/naming/reading) - 0(No aphasia) 10. Dysarthria (speech clarity - read or repeat words) - 0(Normal) 11. Extinction and Inattention (visual/tactile/auditory/spatial/personal) - 0(No abnormality) Initials: 7 Signatures: Dispatcher [employer] Dana Sanchez, RN RN Nadiya Leggett Victoria RN RN vg1 Deuce Howard MD MD 7 Bia Brownlee Sarah, RN RN sm5
[2021-11-05] MEDS ORDERED: ACETAMINOPHEN 500 MG TAB PO PRN (08:59)
[2021-11-05] MEDS ORDERED: ONDANSETRON 4 MG/2 ML VIAL IV PRN (08:59)
[2021-11-05] MEDS ORDERED: ZOLPIDEM TARTRATE 5 MG TABLET PO PRN (08:59)
[2021-11-05] MEDS: NA CHLORIDE 0.9% 1,000 ML IV SCH ×2 (09:00→18:35)
--- NOTE | 2021-11-05 09:03 | P.HP ---
Certification for Inpatient Patient admitted to: Observation With expected LOS: <2 Midnights Practitioner: I am a practitioner with admitting privileges, knowledge of patient current condition, hospital course, and medical plan of care. Services: Services provided to patient in accordance with Admission requirements found in Title 42 Section 412.3 of the Code of Federal Regulations Patient History Date of Service: 11/05/21 Reason for admission: TIA/CVA History of Present Illness: 81-year-old male patient who has a medical history significant for hypertension, hyperlipidemia, coronary artery disease status post coronary artery bypass graft surgery, history of recent CVA with left-sided neurologic deficit who was evaluated in the emergency room for episode of weakness involving the left lower extremity. He also did have significant abnormal movement of the left upper extremity. Because of his recent diagnosis and management he was brought to the emergency room by his daughter and he was found to have significant weakness of the left lower extremity. No issues with speech or perception of spoken speech. No issues to swallow reported. No double vision or persistent dizziness reported. CT of the head done was not concerning for acute intracranial hemorrhage. He was asked to be admitted for evaluation secondary to his new neurologic deficit. Allergies No Known Allergies Allergy (Verified 10/27/14 08:33) Home Medications: Citalopram [Celexa*] 20 mg PO DAILY 04/10/13 Clopidogrel Bisulfate [Plavix*] 75 mg PO DAILY 04/10/13 Pantoprazole [Protonix Tab*] 40 mg EVERY 3RD DAY 10/11/21 Amlodipine [Norvasc*] 10 mg PO DAILY tab 10/17/21 Aspirin [Aspirin EC 81 MG] 81 mg PO DAILY #30 tablet. 10/17/21 Ezetimibe [Zetia*] 10 mg PO BEDTIME tab 10/17/21 Metoprolol Tartrate [Lopressor*] 50 mg PO BID tab 10/17/21 Cholecalciferol (Vitamin D3) [Vitamin D 5,000 IU Cap*] 4,000 iu PO DAILY 11/05/21 Rosuvastatin [Crestor*] 40 mg PO DAILY 11/05/21 - Past Medical/Surgical History Diabetic: No -: hyperlipidemia -: [place] -: arthritis -: depression -: left hip repair -: piedad knee sx -: cabg -: cardiac stents Psychosocial/ Personal History: Patient lives at home with his daughter. - Social History Alcohol use: No CD- Drugs: No Caffeine use: No Review of Systems General: Weakness Eyes: Unremarkable ENT: Unremarkable Respiratory: Unremarkable Cardiovascular: Unremarkable Gastrointestinal: Unremarkable Genitourinary: Unremarkable Musculoskeletal: Unremarkable Integumentary: Unremarkable Neurological: Weakness Physical Examination - Physical Exam General: Alert, Oriented x3 HEENT: Atraumatic, Normocephalic Neck: Supple Respiratory: Normal air movement Cardiovascular: Regular rate/rhythm, Normal S1 S2 Gastrointestinal: Soft and benign Musculoskeletal: No swelling Neurological: Normal speech, Other (power of 2/5 in left lower extremity.) - Studies Laboratory Data (last 24 hrs) 11/05/21 05:39: PT 11.0, INR 1.00, APTT 29.1 11/05/21 05:39: WBC 4.8, Hgb 12.7 L, Hct 36.3 L, Plt Count 163 11/05/21 05:39: Sodium 140, Potassium 3.6, BUN 21 H, Creatinine 1.38 H, Glucose 101 Assessment and Plan - Plan CVA: Patient did have a recent CVA diagnosed in late September 2021 however with new onset weakness in the left lower extremity there is concern for a new neurologic fall out. Will have MRI of the brain done to evaluate. CT scan of the head done revealed no acute hemorrhage. Neurology has been consulted for management recommendation. Continue NIH stroke evaluation. Will follow symptomatology. he will be on fall precautions. Hypertension: For now because of his new onset neurologic deficit we will allow permissive hypertension. Will hydrate gently for cardiovascular support. Will monitor vital signs per unit protocol for now. Hyperlipidemia: Will continue statin therapy and obtain lipid panel History of coronary artery disease: Will monitor on telemetry and continue statin therapy. Prophylaxis: Lovenox for DVT prophylaxis CODE STATUS: Full code Disposition: Pending clinical stability, may be needing usp facility placement. - Advance Directives Does patient have a Living Will: Yes Does patient have a Durable POA for Healthcare: No
[2021-11-05] MEDS ORDERED: ASPIRIN EC 81 MG TAB PO ONE (09:44)
[2021-11-05] MEDS ORDERED: ENOXAPARIN 40 MG/0.4 ML SQ ONE (09:44)
[2021-11-05] MEDS ORDERED: NA CHLORIDE 0.9% 1,000 ML ONE (09:44)
[2021-11-05] MEDS: ASPIRIN EC 81 MG TAB PO SCH (09:48)
[2021-11-05] MEDS: ENOXAPARIN 40 MG/0.4 ML SQ SCH (09:49)
[2021-11-05 09:52] VITALS: BMI 22.3
[2021-11-05 10:05] LABS: Urine Blood Trace-intact (Negative); Urine Glucose Negative (Negative); Urine Protein Negative (Negative); Urine Specific Gravity 1.015 (1.005-1.030)
[2021-11-05 10:20] LABS: Urine Blood Negative (Negative); Urine Glucose Negative (Negative); Urine Protein Negative (Negative)
[2021-11-05] MEDS: INSULIN -REGULAR HUMAN 50 UNIT/0.5 ML ML SQ SCH ×3 (11:30→21:00)
--- NOTE | 2021-11-05 13:22 | RAD REPORT ---
EXAM DESCRIPTION: MRI - Brain Wo Cont - 11/05/2021 1:16 pm CLINICAL HISTORY: TIA/CVA evaluation COMPARISON: MRA Head Wo Cont dated 10/17/2021; Brain Wo Cont dated 10/14/2021; MRI BRAIN WITHOUT CONTRAS T dated 12/24/2013 TECHNIQUE: Sagittal T1-weighted images were obtained along with PD/heavily T2-weighted and T2-FLAIR images. Axial DWI and ADC mapping sequences were also obtained along with coronal heavily T2-weighted images were obtained. FINDINGS: Subacute left cerebellar hemisphere infarct is again identified. No new infarcts are seen. No intracranial hemorrhage, mass or acute infarction. There is no edema or shift of midline structur es. No extra-axial fluid collections. Signal voids are seen as a normal finding in the major intracra nial vessels. Mild chronic small vessel ischemic changes. Cerebral atrophy. Mild paranasal sinus thickening. No mastoid effusion. IMPRESSION: Subacute left cerebellar hemisphere infarct. No new acute infarct identified.
[2021-11-05 13:39] VITALS: O2SAT 100
--- NOTE | 2021-11-05 17:27 | EKG ---
Test Date: 2021-11-05 Test Time: 05:42:17 Coordinator Of Health Services: ELEUTERIO MEASUREMENT RESULTS: Intervals: Rate: 58 ID: [id number] QRSD: 108 QT: 468 QTc: 459 [place]: P: 59 ID: [id number] QRS: -34 T: 54 INTERPRETIVE STATEMENTS: Sinus bradycardia Left axis deviation Cannot rule out Anterior infarct, age undetermined Abnormal ECG Compared to ECG 10/11/2021 01:32:03 Left-axis deviation now present Myocardial infarct finding now present Sinus rhythm no longer present ST (T wave) deviation no longer present Prolonged QT interval no longer present Electronically Signed On 11-05-21 17:26:32 CDT by John Schmitz
[2021-11-05] MEDS: ROSUVASTATIN 10 MG TAB PO SCH (22:02)
[2021-11-05] MEDS: HYDRALAZINE HCL 25 MG TABLET PO SCH (22:12)
[2021-11-06] MEDS: NA CHLORIDE 0.9% 1,000 ML IV SCH (04:22)
[2021-11-06 06:27] LABS: Absolute Lymphocytes (CBC) 0.8 K/uL (0.7-4.9); Hematocrit 34.5 % (39.6-49.0); Lymphocytes % 14.8 % (15.3-44.8); MCV 94.3 fL (80-100); MPV 8.6 fL (7.6-11.3); RBC Red Blood Cell Count 3.66 M/uL (4.33-5.43)
[2021-11-06] MEDS: HYDRALAZINE HCL 25 MG TABLET PO SCH (06:44)
[2021-11-06 06:45] LABS: Magnesium 1.9 mg/dL (1.8-2.4)
[2021-11-06] MEDS: INSULIN -REGULAR HUMAN 50 UNIT/0.5 ML ML SQ SCH (07:30)
[2021-11-06] MEDS: ROSUVASTATIN 10 MG TAB PO SCH (08:51)
[2021-11-06] MEDS: ENOXAPARIN 40 MG/0.4 ML SQ SCH (08:53)
[2021-11-06] MEDS: ASPIRIN EC 81 MG TAB PO SCH (08:53)
--- NOTE | 2021-11-06 08:53 | P.DS ---
Admission Date: 11/05/21 Discharge Date: 11/06/21 Disposition: DC HOME/HOME HEALTH CARE Discharge Condition: GOOD Reason for Admission: TIA/CVA Brief History of Present Illness: 81-year-old male patient who has a medical history significant for hypertension, hyperlipidemia, coronary artery disease status post coronary artery bypass graft surgery, history of recent CVA with left-sided neurologic deficit who was evaluated in the emergency room for episode of weakness involving the left lower extremity. He also did have significant abnormal movement of the left upper extremity. Because of his recent diagnosis and management he was brought to the emergency room by his daughter and he was found to have significant weakness of the left lower extremity. No issues with speech or perception of spoken speech. No issues to swallow reported. No double vision or persistent dizziness reported. CT of the head done was not concerning for acute intracranial hemorrhage. He was asked to be admitted for evaluation secondary to his new neurologic deficit. Hospital Course: he was started on IV hydration and was admitted for observation. His neurologic deficit somewhat improved and he had MRI of the brain done. MRI revealed a subacute cerebellar infarct in the old region without any new neurologic lesions. He began to have significant improvement in his lower extremity weakness on the left and by today he had felt much better with significant regain of function of the left lower extremity. He was deemed stable for discharge to continue with his home PT as scheduled prior to admission. Lipid panel done to evaluate for adequacy of therapy was very much improved without issues. He will follow-up with his primary care doctor and his neurologist as scheduled. Vital Signs/Physical Exam: Temp Pulse Resp BP Pulse Ox 97.1 F 62 16 169/74 H 97 11/06/21 04:00 11/06/21 06:45 11/06/21 04:00 11/06/21 06:45 11/06/21 04:00 General: Alert, Oriented x3 HEENT: Atraumatic, Normocephalic Neck: Supple Respiratory: Normal air movement Cardiovascular: Regular rate/rhythm, Normal S1 S2 Gastrointestinal: Soft and benign Musculoskeletal: No swelling Neurological: Normal speech, Normal strength at 5/5 x4 extr Laboratory Data at Discharge: WBC 5.6 K/uL (4.3-10.9) D 11/06/21 06:02 Hgb 12.2 g/dL (13.6-17.9) L 11/06/21 06:02 Hct 34.5 % (39.6-49.0) L 11/06/21 06:02 Plt Count 154 K/uL (152-406) 11/06/21 06:02 PT 11.0 SECONDS (9.5-12.5) 11/05/21 05:39 INR 1.00 11/05/21 05:39 APTT 29.1 SECONDS (24.3-36.9) 11/05/21 05:39 Sodium 140 mmol/L (136-145) 11/05/21 05:39 Potassium 3.6 mmol/L (3.5-5.1) 11/05/21 05:39 BUN 21 mg/dL (7-18) H 11/05/21 05:39 Creatinine 1.38 mg/dL (0.55-1.3) H 11/05/21 05:39 Glucose 101 mg/dL (74-106) 11/05/21 05:39 Magnesium 1.9 mg/dL (1.8-2.4) 11/06/21 06:02 Triglycerides 57 mg/dL (<150) 11/06/21 06:02 Cholesterol 129 mg/dL (<200) 11/06/21 06:02 HDL Cholesterol 45 mg/dL (40-60) 11/06/21 06:02 Cholesterol/HDL Ratio 2.87 11/06/21 06:02 Home Medications: Citalopram [Celexa*] 20 mg PO DAILY 04/10/13 Clopidogrel Bisulfate [Plavix*] 75 mg PO DAILY 04/10/13 Pantoprazole [Protonix Tab*] 40 mg EVERY 3RD DAY 10/11/21 Amlodipine [Norvasc*] 10 mg PO DAILY tab 10/17/21 Aspirin [Aspirin EC 81 MG] 81 mg PO DAILY #30 tablet. 10/17/21 Ezetimibe [Zetia*] 10 mg PO BEDTIME tab 10/17/21 Metoprolol Tartrate [Lopressor*] 50 mg PO BID tab 10/17/21 Cholecalciferol (Vitamin D3) [Vitamin D 5,000 IU Cap*] 4,000 iu PO DAILY 11/05/21 Hydralazine [Apresoline*] 25 mg PO Q8H 11/05/21 Rosuvastatin [Crestor*] 40 mg PO DAILY 11/05/21 Diet: AHA Activity: Fall precautions Followup: Richard Ayala, DO [Primary Care Provider] -
[2021-11-06 08:54] VITALS: BP 163/65
[2021-11-06] MEDS ORDERED: CLOPIDOGREL 75 MG TABLET PO SCH (09:00)
[2021-11-06] MEDS ORDERED: AMLODIPINE 10 MG TAB PO SCH (09:00)
[2021-11-06] MEDS ORDERED: CITALOPRAM 10 MG TABLET PO SCH (09:00)
[2021-11-06] MEDS ORDERED: METOPROLOL TAR 50 MG TAB PO SCH (09:00)
[2021-11-06] MEDS ORDERED: VITAMIN D 1000 UNIT TAB PO SCH (09:00)
[2021-11-06 10:02] VITALS: TEMP 97.2
[2021-11-06] MEDS ORDERED: EZETIMIBE 10 MG TAB PO SCH (21:00)
[2021-11-07] MEDS ORDERED: PANTOPRAZOLE 40MG TABLET PO SCH (09:00)
--- NOTE | 2021-11-07 13:04 | RAD REPORT ---
EXAM DESCRIPTION: RAD - Chest Single View - 11/05/2021 5:54 am CLINICAL HISTORY: 81 years Male, STROKE COMPARISON: 10/11/2021 TECHNIQUE: Single portable x-ray view of the chest performed on 11/05/2021 at 5:49 AM FINDINGS: Lungs are well-expanded and are grossly clear. Again demonstrated are mildly prominent per ihilar interstitial markings which are nonspecific. There is no evidence of focal airspace consolidat ion. There is no evidence of a pneumothorax. The cardiac silhouette is normal in size and configuration. There are remote postsurgical changes of the mediastinum. The mediastinal contours are normal. No acute osseous abnormality is identified. No acute soft tissue abnormalities are seen. Lines and tubes: None. Free air: None IMPRESSION: 1. No definite acute intrathoracic disease. There are stable, mildly prominent perihil ar interstitial markings which are nonspecific. 2. Remote median sternotomy. Electronically signed by: Ericka Sow DO 11/05/2021 6:33 AM CDT Due to temporary technical issues with the PACS/Fluency reporting system, reports are being signed by the in house radiologist without review as a courtesy to ensure prompt reporting. The interpreting r adiologist is fully responsible for the content of the report.
--- NOTE | 2021-11-07 13:27 | RAD REPORT ---
EXAM DESCRIPTION: CT - Ct Stroke Brain Wo Cont - 11/05/2021 6:53 am CLINICAL HISTORY: Trauma COMPARISON: 12/25/2019 TECHNIQUE: Axial CT of the head obtained from the skull apex to the skull base without contrast. Axi al CT images of the cervical spine obtained from the skull base through the thoracic inlet. Sagittal and coronal reformatted images available. This exam was performed according to our departmental dose- optimization program, which includes automated exposure control, adjustment of the mA and/or kV accor ding to patient size and/or use of iterative reconstruction technique. FINDINGS: CT head: No acute intracranial hemorrhage identified. No mass, mass effect, shift of the midline, abnormal ext ra-axial fluid collection or CT evidence of acute ischemic change identified. Mild enlargement of the jugular system and sulcal spaces compatible with cerebral atrophy. Scattered areas of hypodensity in the supratentorial white matter are nonspecific and may represent sequela of chronic small vessel ischemic change. The visualized paranasal sinuses and the mastoids are clear. No skull fracture identified. Visual ized orbits and globes are unremarkable. Atherosclerotic calcification of the carotid and vertebral a rteries. Cervical CT: Alignment of the cervical spine is maintained without evidence of subluxation. The atlantoaxial, at lantodental, and occipitoatlantal intervals are preserved. No fracture identified. Stable appearanc e of T1 and T2 compatible with chronic compression fractures. Prevertebral soft tissues are unremar kable. Moderate to severe multilevel loss of intervertebral disc height with endplate spondylosis, facet art hropathy, and uncovertebral spurring. Posterior disc osteophyte complex at multiple levels encroach o n the anterior spinal canal as well as produce mild to moderate neural foraminal narrowing. Visualized skull base is intact. No fracture of the visualized facial bones. Visualized mastoid air c ells and paranasal sinuses are well aerated. Visualized thyroid is unremarkable. No cervical lymphadenopathy. No pneumothorax in the visualized lung apices. Carotid artery atherosclerosis. Carotid artery stent. IMPRESSION: 1. No acute intracranial abnormality. 2. No acute fracture or subluxation of the cervical spine. 3. Multilevel degenerative change of the cervical spine. Electronically signed by: Harshal Wallace 10/11/2021 2:41 AM CDT Due to temporary technical issues with the PACS/Fluency reporting system, reports are being signed by the in house radiologist without review as a courtesy to ensure prompt reporting. The interpreting r adiologist is fully responsible for the content of the report.
--- NOTE | 2021-11-07 14:44 | EKG ---
Test Date: 2021-11-05 Test Time: 05:51:58 Environmental Health Technologist: ELEUTERIO MEASUREMENT RESULTS: Intervals: Rate: 58 NE: 190 QRSD: 104 QT: 442 QTc: 433 [place]: P: 73 NE: 190 QRS: -29 T: 69 INTERPRETIVE STATEMENTS: Sinus bradycardia Cannot rule out Anterior infarct, age undetermined Abnormal ECG Compared to ECG 11/05/2021 05:42:17 Left-axis deviation no longer present Myocardial infarct finding still present Electronically Signed On 11-07-21 14:41:25 CDT by John Schmitz
== END 2021-11-06 11:12 | disposition home health service (06) ==
LOC: ER 05:26 → ERHOLD 09:00 → 2ND 13:18
PROVIDERS: ADMIT Internal Medicine Nephrology; ATTEND Internal Medicine Nephrology
DX: I69.344 Monoplegia of lower limb following cerebral infarction affecting left non-dominant side (principal); I10 Essential (primary) hypertension; I25.10 Atherosclerotic heart disease of native coronary artery without angina pectoris; E78.5 Hyperlipidemia, unspecified; I25.2 Old myocardial infarction; M19.90 Unspecified osteoarthritis, unspecified site; F32.A Depression, unspecified; Z95.1 Presence of aortocoronary bypass graft; Z95.5 Presence of coronary angioplasty implant and graft; Z79.02 Long term (current) use of antithrombotics/antiplatelets; Z79.82 Long term (current) use of aspirin; Z79.899 Other long term (current) drug therapy; Z85.46 Personal history of malignant neoplasm of prostate; Z87.891 Personal history of nicotine dependence; Z20.822 Contact with and (suspected) exposure to COVID-19
CPT/HCPCS: 93005 ×2; 85025 ×2; 80048; 36415 ×2; 83735; 85610; 80061; 82947 ×6; 85730; 81003 ×2; 70450; 71045; 70551; 99284; U0003; J1650 ×2; J7030 ×3; G0378 ×3

== ENCOUNTER 2021-11-11 08:53 | Emergency (ER) | payer OTHER, BC ==
--- NOTE | 2021-11-11 09:46 | RAD REPORT ---
EXAM DESCRIPTION: RAD - Chest Single View - 11/11/2021 9:37 am CLINICAL HISTORY: AMS COMPARISON: Chest Single View dated 11/05/2021; Chest Single View dated 10/11/2021; Chest Single View dated 12/25/2019; Chest Pa And Lat (2 Views) dated 03/23/2016 FINDINGS: Lines: None. Lungs: No evidence of edema or pneumonia. Pleural: No significant pleural effusions or pneumothorax. Cardiac: Cardiomegaly. Sternotomy. Bones: No acute fractures. Other: IMPRESSION: No acute cardiopulmonary disease.
[2021-11-11] MEDS ORDERED: ONDANSETRON 4 MG/2 ML VIAL ONE (10:08)
[2021-11-11 10:19] LABS: Absolute Lymphocytes (CBC) 0.9 K/uL (0.7-4.9); Lymphocytes % 16.4 % (15.3-44.8); MCV 94.9 fL (80-100); MPV 9.4 fL (7.6-11.3); RBC Red Blood Cell Count 3.89 M/uL (4.33-5.43)
[2021-11-11 11:11] LABS: Troponin High Sensitivity 20.7 pg/mL (<58.9)
[2021-11-11 11:12] LABS: Potassium 3.8 mmol/L (3.5-5.1)
--- NOTE | 2021-11-11 13:12 | RAD REPORT ---
EXAM DESCRIPTION: MRI - Brain W/Wo Cont - 11/11/2021 12:54 pm CLINICAL HISTORY: Confusion/alteration of consciousness /cva COMPARISON: October 14 and November 05, 2021 MRI TECHNIQUE: Axial, sagittal, and coronal magnetic images of the brain were obtained. 18 cc MultiHance administered intravenously FINDINGS: Subacute left cerebellar infarction again demonstrated. T1 weighted sequences demonstrate areas of increased signal compatible with hemorrhagic conversion. One area measures approximately 2 c entimeters. The other area is smaller. Minimal enhancement present. The ventricles are normal in caliber. No other significant change since the October 14 2021 MRI IMPRESSION: Subacute left cerebellar infarct demonstrating hemorrhagic conversion Dr Cruz notified
--- NOTE | 2021-11-11 13:28 | RAD REPORT ---
EXAM DESCRIPTION: MRI - MRA Head Wo Cont - 11/11/2021 12:53 pm CLINICAL HISTORY: CVA COMPARISON: October 17, 2021 TECHNIQUE: Magnetic resonance angiogram was performed. 3D MIPS reconstruction performed FINDINGS: Suboptimal evaluation distal internal carotid arteries secondary to patient motion Anterior cerebral, middle cerebral, basilar and right posterior cerebral arteries do not demonstrate a significant abnormality. Mild narrowing of the P2 segment left posterior cerebral artery An aneurysm is not displayed. IMPRESSION: Mild narrowing of the P2 segment left posterior cerebral artery
--- NOTE | 2021-11-11 13:31 | RAD REPORT ---
EXAM DESCRIPTION: MRI - MRA Neck W/Wo Cont - 11/11/2021 12:54 pm CLINICAL HISTORY: CVA COMPARISON: October 17, 2021 TECHNIQUE: Magnetic resonance angiogram of the neck was performed. 18 cc MultiHance was administered intravenously. 3D MIPS reconstruction performed FINDINGS: Moderate plaque is present within left carotid bulb. A stent is present within the right c arotid bulb/proximal right internal carotid artery which limits evaluation. High-grade stenosis involves the proximal right and left external carotid arteries. Right vertebral artery unremarkable There is diminished opacification of the proximal left vertebral artery. Overall without significant change from the prior exam Mild narrowing of the distal left vertebral artery is unchanged Mild plaque within the common carotid arteries IMPRESSION: Stent within the right carotid bulb/proximal right internal carotid artery Moderate plaque left carotid bulb Proximal left vertebral artery demonstrates diminished opacification and narrowing. This is unchanged from the prior exam. This probably is secondary to atherosclerotic disease or chronic dissection Mild narrowing distal left vertebral artery unchanged NASCET criteria used. Mild 0-49% stenosis Moderate 50-69% stenosis Severe 70-99% stenosis
[2021-11-11] MEDS ORDERED: LEVETIRACETAM 500 MG/5 ML VIAL IV ONE (14:23)
[2021-11-11] MEDS ORDERED: NA CHLORIDE 0.9% 100 ML ONE (14:24)
[2021-11-11] MEDS ORDERED: dilTIAZem HCL 25 MG/5 ML VIAL IV ONE (14:24)
[2021-11-11] MEDS ORDERED: NA CHLORIDE 0.9% 250 ML ONE (14:24)
--- NOTE | 2021-11-11 14:57 | ER ---
Nurse's Notes [facility] Name: Vaughn Webb Age: 81 yrs Sex: Male : 1940 Arrival Date: 11/11/2021 Time: 08:57 Bed 17 Private MD: Diagnosis: Subacute left cerebellar hemispheric infart with hemorrhagic conversion Presentation: 11/11 08:57 Chief complaint: EMS states: pt presented to ED with N/V, dizziness. alter mental berg status. recent HX ot Stroke. Coronavirus screen: Vaccine status: Patient reports receiving the 2nd dose of the covid vaccine. Ebola Screen: Patient denies travel to an Ebola-affected area in the 21 days before illness onset. Initial Sepsis Screen: Does the patient meet any 2 criteria? No. Patient's initial sepsis screen is negative. Does the patient have a suspected source of infection? No. Patient's initial sepsis screen is negative. Risk Assessment: Do you want to hurt yourself or someone else? Patient reports no desire to harm self or others. Onset of symptoms was November 11, 2021. 08:57 Method Of Arrival: EMS: [facility] 08:57 Acuity: PEDRO LUIS 3 berg Triage Assessment: 09:00 General: Appears in no apparent distress. General: Behavior is cooperative, anxious, berg crying. Pain: Denies pain. Historical: - Allergies: 09:00 Oxybutynin Chloride; berg - Home Meds: 09:00 amlodipine 10 mg tab once daily [Active]; aspirin 81 mg Oral tab daily [Active]; B berg complex-minerals Oral daily [Active]; citalopram 20 mg tab once daily [Active]; clopidogrel 75 mg Oral tab once daily [Active]; ezetimibe 10 mg Oral tab once daily [Active]; hydralazine 25 mg Oral tab TID [Active]; metoprolol tartrate 50 mg Oral tab 2 times per day [Active]; pantoprazole 40 mg Oral TbEC Every other day [Active]; rosuvastatin 40 mg Oral tab once daily [Active]; Vitamin D Oral daily [Active]; - PMHx: 09:00 Cerebrovascular accident; Hyperlipidemia; Hypertension; kidney disease; PROSTATE CA; berg - Immunization history:: Adult Immunizations up to date. - Social history:: Smoking status: Patient denies any tobacco usage or history of. Screenin:01 Abuse screen: Denies threats or abuse. Denies injuries from another. Nutritional berg screening: No deficits noted. Tuberculosis screening: No symptoms or risk factors identified. Fall Risk IV access (20 points). Mental Status- Overestimates/Forgets Limitations (15 pts.). Assessment: 09:01 General: Appears in no apparent distress. Behavior is cooperative, anxious, crying. berg Pain: Denies pain. Neuro: Level of Consciousness is awake, obeys commands, Oriented to person. Cardiovascular: Parent/caregiver reports patient has had nausea, syncope, vomiting. GI: Parent/caregiver reports the patient having nausea, vomiting. Vital Signs: 08:57 BP 175 / 69; Pulse 74; Resp 19; Temp 97.8(O); Pulse Ox 100% ; Weight 86.18 kg; Height 5 berg ft. 11 in. (180.34 cm); 10:22 BP 166 / 82; Pulse 67; Resp 17; Pulse Ox 100% on R/A; berg 11:01 BP 145 / 65; Pulse 79; Resp 18; Pulse Ox 100% on 2 lpm NC; berg 11:24 BP 151 / 68; Pulse 69; Resp 17; Pulse Ox 97% on R/A; berg 13:01 BP 160 / 68; Pulse 67; Resp 16; Pulse Ox 100% ; berg 13:48 BP 161 / 68; Pulse 62; Resp 16; Pulse Ox 100% on R/A; berg 14:34 BP 160 / 65; Pulse 60; Resp 16; Pulse Ox 100% on R/A; berg 14:41 BP 147 / 63; Pulse 64; Resp 17; Pulse Ox 99% on R/A; berg 08:57 Body Mass Index 26.50 (86.18 kg, 180.34 cm) ED Course: 08:57 Patient arrived in ED. berg 08:57 Rigoberto Cruz MD is Attending Physician. kdr 09:00 Triage completed. berg 09:00 Arm band placed on. berg 09:01 Patient has correct armband on for positive identification. Bed in low position. berg 09:01 No provider procedures requiring assistance completed. Maintain EMS IV. Gauge \\T\\ site: 20g rfa. 09:25 Maddison-Dianne Garza RN is Primary Nurse. berg 09:38 XRAY Chest (1 view) In Process Unspecified. EDMS 12:55 MRA Head Wo Cont In Process Unspecified. EDMS 12:56 Brain W/Wo Cont In Process Unspecified. EDMS 12:56 MRA Neck W/Wo Cont In Process Unspecified. EDMS 14:04 attempted to initiate a transfer with Moe from the [facility] at the eb request of the patient's / per Moe they do not have any beds at this time and will have to decline the patient in transfer. 14:07 initiated a transfer with [facility] from the [facility]. eb 14:34 SARS-COV-2 RT PCR (Document "Date of Onset" if Symptomatic) Sent. berg 14:[address] Patino the neuro secondary connector armature for [facility] with Dr. Cruz for patient eb transfer consultation. 15:06 patients spouse has come out of patient's room and asked if we could "transfer her eb to [facility]," per her research "[facility] does not have any good reviews". provider notified. 15:17 initiated a transfer with Carolyn Basilio Rn from the [facility] Transfer center. eb 15:25 administrative approval given by [employer] / patient has been accepted to [facility] 7 South 5 bed 15/ Dr. Patino has accepted the patient in transfer/ report to be called to the transfer center at [phone]/ family would like us to wait to hear from [place] before we proceed. 15:32 connected the neuro team secondary connector armature for [facility] with Dr. Cruz for patient eb transfer consultation. 15:40 administrative approval given by Carolyn Basilio Rn/ patient has been accepted to [facility] ER/ Dr. Saldivar has accepted the patient in transfer / report to be called to [phone]. 15:42 transfer cancelled with [facility] due to approval from [facility]. eb 16:49 Patient transferred, IV remains in place. berg Administered Medications: 14:33 Drug: Cardene (niCARdipine) 5 mg/hr Route: IV; Rate: calculated rate; Site: right berg forearm; 14:34 Drug: Keppra (levETIRAcetam) 1000 mg Route: IV; Rate: calculated rate; Site: right berg antecubital; Medication: 09:01 VIS not applicable for this client. berg Outcome: 14:56 ER care complete, transfer ordered by . kdr 16:48 Transferred by ground EMS to [facility]. berg 16:48 Condition: stable 16:48 Instructed on the need for transfer. 16:49 Patient left the ED. berg Signatures: Dispatcher [employer] EDRigoberto Manning MD MD kdr Botello, Elizabeth eb Au-Stager, Heather, RN RN berg Corrections: (The following items were deleted from the chart) 15:21 14:04 attempted to initiate a transfer with Moe from the [facility]/ eb per Moe they do not have any beds at this time and will have to decline the patient in transfer. eb
--- NOTE | 2021-11-11 14:57 | EDPHYS ---
Physician Documentation [facility] Name: Vaughn Webb Age: 81 yrs Sex: Male : 1940 Arrival Date: 11/11/2021 Time: 08:57 Bed 17 Private MD: ED Physician Rigoberto Cruz HPI: 11/11 09:22 This 81 yrs old Male presents to ER via EMS with complaints of AMS. kdr 09:22 The patient's daughter who is here with him relates that he awoke more less than his kdr normal baseline state but shortly thereafter, he had change in his mental status and became confused and poorly responsive. According to the daughter, the patient has been in and out of the similar situation several times over the past 2 to 4 weeks. The patient's had a prior stroke. And has been admitted and subsequently discharged to rehab. Currently he is exhibiting similar symptoms to what he had previously with his prior stroke.. Onset: The symptoms/episode began/occurred suddenly, just prior to arrival. Severity of symptoms: At their worst the symptoms were mild moderate just prior to arrival, in the emergency department the symptoms are unchanged. The patient has experienced similar episodes in the past, several times, today's symptoms are similar. The patient has been recently seen by a physician: the patient's primary care provider, a neurologist, in the hospital. Historical: - Allergies: 09:00 Oxybutynin Chloride; berg - Home Meds: 09:00 amlodipine 10 mg tab once daily [Active]; aspirin 81 mg Oral tab daily [Active]; B berg complex-minerals Oral daily [Active]; citalopram 20 mg tab once daily [Active]; clopidogrel 75 mg Oral tab once daily [Active]; ezetimibe 10 mg Oral tab once daily [Active]; hydralazine 25 mg Oral tab TID [Active]; metoprolol tartrate 50 mg Oral tab 2 times per day [Active]; pantoprazole 40 mg Oral TbEC Every other day [Active]; rosuvastatin 40 mg Oral tab once daily [Active]; Vitamin D Oral daily [Active]; - PMHx: 09:00 Cerebrovascular accident; Hyperlipidemia; Hypertension; kidney disease; PROSTATE CA; berg - Immunization history:: Adult Immunizations up to date. - Social history:: Smoking status: Patient denies any tobacco usage or history of. ROS: 09:22 Constitutional: Negative for fever, chills, and weight loss, Eyes: Negative for injury, kdr pain, redness, and discharge, Neck: Negative for injury, pain, and swelling, Cardiovascular: Negative for chest pain, palpitations, and edema, Respiratory: Negative for shortness of breath, cough, wheezing, and pleuritic chest pain, Abdomen/GI: Negative for abdominal pain, nausea, vomiting, diarrhea, and constipation, Back: Negative for injury and pain. 09:22 Neuro: Positive for altered mental status, weakness, Negative for Exam: : Constitutional: This is a well developed, well nourished patient who is awake, alert, kdr and in no acute distress. Head/Face: Normocephalic, atraumatic. Neck: Trachea midline, no thyromegaly or masses palpated, and no cervical lymphadenopathy. Supple, full range of motion without nuchal rigidity, or vertebral point tenderness. No Meningismus. Chest/axilla: Normal chest wall appearance and motion. Nontender with no deformity. No lesions are appreciated. Cardiovascular: Regular rate and rhythm with a normal S1 and S2. No gallops, murmurs, or rubs. Normal PMI, no JVD. No pulse deficits. Respiratory: Lungs have equal breath sounds bilaterally, clear to auscultation and percussion. No rales, rhonchi or wheezes noted. No increased work of breathing, no retractions or nasal flaring. Abdomen/GI: Soft, non-tender, with normal bowel sounds. No distension or tympany. No guarding or rebound. No evidence of tenderness throughout. Back: No spinal tenderness. No costovertebral tenderness. Full range of motion. Skin: Warm, dry with normal turgor. Normal color with no rashes, no lesions, and no evidence of cellulitis. MS/ Extremity: Pulses equal, no cyanosis. Neurovascular intact. Full, normal range of motion. Psych: Awake, alert, with orientation to person, place and time. Behavior, mood, and affect are within normal limits. :22 Neuro: Orientation: unable to test, Mentation: inappropriate for stated age, Memory: Motor: moves all fours. 10:35 ECG was reviewed by the Attending Physician. kdr Vital Signs: 08:57 BP 175 / 69; Pulse 74; Resp 19; Temp 97.8(O); Pulse Ox 100% ; Weight 86.18 kg; Height 5 berg ft. 11 in. (180.34 cm); 10:22 BP 166 / 82; Pulse 67; Resp 17; Pulse Ox 100% on R/A; berg 11:01 BP 145 / 65; Pulse 79; Resp 18; Pulse Ox 100% on 2 lpm NC; berg 11:24 BP 151 / 68; Pulse 69; Resp 17; Pulse Ox 97% on R/A; berg 13:01 BP 160 / 68; Pulse 67; Resp 16; Pulse Ox 100% ; berg 13:48 BP 161 / 68; Pulse 62; Resp 16; Pulse Ox 100% on R/A; berg 14:34 BP 160 / 65; Pulse 60; Resp 16; Pulse Ox 100% on R/A; berg 14:41 BP 147 / 63; Pulse 64; Resp 17; Pulse Ox 99% on R/A; berg 08:57 Body Mass Index 26.50 (86.18 kg, 180.34 cm) berg MDM: 14:56 Patient medically screened. kdr 14:56 Data reviewed: vital signs, nurses notes, lab test result(s), radiologic studies. kdr Counseling: I had a detailed discussion with the patient and/or guardian regarding: the historical points, exam findings, and any diagnostic results supporting the discharge/admit diagnosis, lab results, radiology results, the need for outpatient follow up. 11/11 09:12 Order name: Basic Metabolic Panel; Complete Time: 11:57 kdr 11/11 09:12 Order name: CBC with Diff; Complete Time: 11:05 kdr 11/11 09:12 Order name: NT PRO-BNP; Complete Time: 11:57 kdr 11/11 09:12 Order name: Troponin HS; Complete Time: 11:57 kdr 11/11 09:12 Order name: XRAY Chest (1 view); Complete Time: 10:02 kdr 11/11 14:12 Order name: SARS-COV-2 RT PCR (Document "Date of Onset" if Symptomatic) eb 11/11 09:12 Order name: EKG; Complete Time: 09:13 kdr 11/11 11:24 Order name: MRA Head Wo Cont; Complete Time: 13:46 EDMS 11/11 11:26 Order name: Brain W/Wo Cont; Complete Time: 13:46 EDMS 11/11 11:26 Order name: MRA Neck W/Wo Cont; Complete Time: 13:46 EDMS 11/11 09:12 Order name: Cardiac monitoring; Complete Time: 38 kdr 11/11 09:12 Order name: EKG - Nurse/Tech; Complete Time: 38 kdr 11/11 09:12 Order name: IV Saline Lock; Complete Time: :38 kdr 11/11 09:12 Order name: Labs collected and sent; Complete Time: kdr 11/11 09:12 Order name: O2 Per Protocol; Complete Time: kdr 11/11 09:12 Order name: O2 Sat Monitoring; Complete Time: kdr EC:35 Rate is 64 beats/min. Rhythm is regular, Sinus Rhythm with No ectopy. QRS [place] is kdr Normal. [place] interval is normal. QRS interval is normal. Clinical impression: NSR w/ Non-specific ST/T Changes. 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 EDMD EDMS 16:08 14:56 ruchi Patterson kdr kdr 16:08 14:56 [facility] kdr kdr 16:49 16:08 Genaro hopper kdr berg
[2021-11-11 16:54] VITALS: TEMP 97.8
[2021-11-11 17:04] VITALS: BP 147/63; O2SAT 99
--- NOTE | 2021-11-15 08:06 | EKG ---
Test Date: 2021-11-11 Test Time: 09:30:56 Professor Of Biological Sciences: CARINA MEASUREMENT RESULTS: Intervals: Rate: 64 HI: 178 QRSD: 100 QT: 468 QTc: 482 [place]: P: 76 HI: 178 QRS: -50 T: 58 INTERPRETIVE STATEMENTS: Normal sinus rhythm Possible Left atrial enlargement Left axis deviation Junctional ST depression, probably normal Prolonged QT Abnormal ECG Compared to ECG 11/05/2021 05:51:58 Left-axis deviation now present ST (T wave) deviation now present Prolonged QT interval now present Sinus bradycardia no longer present Myocardial infarct finding no longer present Electronically Signed On 11-15-21 07:56:37 CDT by Toni Jones
== END 2021-11-11 16:49 | disposition short-term general hospital (02) ==
LOC: ER 08:53
DX: I63.9 Cerebral infarction, unspecified (principal); I61.4 Nontraumatic intracerebral hemorrhage in cerebellum; I12.9 Hypertensive chronic kidney disease with stage 1 through stage 4 chronic kidney disease, or unspecified chronic kidney disease; N18.9 Chronic kidney disease, unspecified; Z86.73 Personal history of transient ischemic attack (TIA), and cerebral infarction without residual deficits; Z20.822 Contact with and (suspected) exposure to COVID-19; Z85.46 Personal history of malignant neoplasm of prostate; Z88.8 Allergy status to other drugs, medicaments and biological substances
CPT/HCPCS: 85025; 80048; 36415; 84484; 83880; 71045; 70553; 70544; 70549; 99285; U0003; A9577; J1953; J7050; J2405; 93005

== ENCOUNTER 2022-06-23 16:55 | Emergency (ER) | payer OTHER, BC ==
--- OUTSIDE RECORDS SUMMARY | 2022-06-23 17:05 | XMS REPORT | Continuity of Care Document ---
:1940 Author Organization [facility] t Address [address] [place] [address] Care Team Providers Name Role Phone Asked, No Pcp Primary Care Physician Unavailable Richard Denis Attending Clinician Unavailable FREYA WATSON Attending Clinician Unavailable GHULAM FONG Attending Clinician Unavailable Domenico Lindquist Rahil Attending Clinician Unavailable Bismark Mars Attending Clinician Unavailable Bia Neumann MA Attending Clinician Unavailable Ana Laura STERLING, Manny Jim Attending Clinician ROSELYN BRYSON Attending Clinician Unavailable REMEDIOS YIP Attending Clinician Unavailable Omaira Castillo MD Attending Clinician [phone] Carolyn Hayes MD Attending Clinician Moustapha Garcia MD Attending Clinician Rhoda Denson MA Attending Clinician Unavailable Bertha Santana MD Attending Clinician Shay STERLING, Suyapa Montano Attending Clinician Rj Yoder CRNA Attending Clinician [phone] Mahi Qureshi Attending Clinician Unavailable Wanda Guerra MA Attending Clinician Unavailable Chi STERLING, Milton Arguello Attending Clinician Susan Angel MD Attending Clinician Dana Green MA Attending Clinician Unavailable Van_T Attending Clinician Unavailable Ricki De La Fuente MA Attending Clinician Unavailable Roc Viveros Attending Clinician [phone] Mei Brooks Attending Clinician Unavailable Bismark Mars Attending Clinician Unavailable Bismark Mars Attending Clinician Unavailable MD MOUSTAPHA GARCIA Attending Clinician Unavailable CHONG MUSA Attending Clinician Unavailable LIBERTY PHELPS Attending Clinician Unavailable Domenico Lindquist Rahil Admitting Clinician Unavailable DOMENICO LINDQUIST Admitting Clinician Unavailable TOMER GANNON Admitting Clinician Unavailable BERTHA SANTANA Admitting Clinician Unavailable Felice_T Admitting Clinician Unavailable Bismark Mars Admitting Clinician Unavailable MOUSTAPHA GARCIA Admitting Clinician Unavailable MD MOUSTAPHA GARCIA Admitting Clinician Unavailable LIBERTY PHELPS Admitting Clinician Unavailable MANNY DU Admitting Clinician Unavailable Payers Payer Name Policy Type Policy Number Effective Date Expiration Date S helio MEDICARE PART A [id number] 2004 AND B 00:00:00 [facility] [id number] [facility] BCTI [id number] Blue Cross Blue 6 [id number] [facility] [place]: [id number] 2004 [place] 00:00:00 [place] [id number] 2018 [place] ([place]ICARE 00:00:00 SUPPLEMENT) Problems Condition [...] Added automatic ally from request for surgery [id number] Arthritis Arthritis Disease Active 2020-05 [facility] of right of right 2- st wrist wrist 00:00: Hospita 00 l Right arm Right arm Disease Active 2020-05 [facility] pain pain 2 st 00:00: Hospita 00 l Right arm Right arm Disease Active 2020-05 [facility] numbness numbness 2 st 00:00: Hospita 00 l Urinary Urinary [...] with Disease Active Metho di obstructio obstructio 7 st n/lower n/lower 00:00: Hospita urinary urinary [...] Hospi ta involving involving 00 note l [place] might be coronary coronary different artery artery from the original. Added automatic ally from request for surgery [id number] Abnormal Abnormal Disease Active Metho di stress stress 1-15 st test test 00:00: Hospita 00 l Angina Angina Disease Active [facility] pectoris pectoris 1-15 st 00:00: Hospita 00 l CAD in CAD in Disease Active 2017-05 [facility] [place] 2-11 st artery artery 00:00: Hospita 00 [...] disease 00:00: Hospita involving involving 00 l [place] coronary coronary artery artery without without angina angina pectoris pectoris Essential Essential Disease Active [facility] hypertensi hypertensi 2-12 st on on 00:00: Hospita 00 l S/P S/P Disease Active [facility] coronary coronary 2-12 st artery artery 00:00: Hospita bypass bypass 00 l graft x 3 graft x 3 [id number] +5th digit Problem Co mmon eff Spirit 02/11/22*An - [facility]I eurysm of infrarenal 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 cerebral Medical artery Center [id number] Former Problem Common tobacco Spirit use - [facility] [id number] Drug-induc Problem Co mmon ed Spirit [facility]urop [facility] [id number] Peripheral Problem Com mon polyneurop Spirit athy - [facility] [id number] Current Problem Common moderate Spirit episode of - [facility] major [facility] Medical without Center prior episode Insomnia Insomnia Problem Commo n Spirit - CHI [facility] Gammopathy Gammopathy Problem C ommon Spirit - [facility] [id number] DAR Problem Common (generaliz Spirit ed anxiety - CHI disorder) [facility] [id number] Polyp of Problem Commo n colon, Spirit [facility]specifie [facility] d type Center [id number] 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 bypass Medical graft of Center [place] heart with other forms of angina pectoris Bilateral Bilateral Disease Active [facility] carpal [...] l right right upper limb upper limb Fracture Fracture Problem Active 2013-06-05 [facility] 16:18:01 l Calcaneus Calcaneus Herm christine Active 06/05/2013 [facility] Pelvic Pelvic Problem Active 2013-06-05 [facility] Fracture Fracture 16:18:01 l Active [place] 06/05/2013 [facility] Closed Closed Problem Active 2013-06-05 Dre fatemeh Fracture Fracture 16:18:01 l Of The Of The [place] Acetabulum Acetabulum Active 06/05/2013 [facility] Allergies, Adverse Reactions, Alerts Allergy Allergy Status Severity Reaction(s) Onset Inactive Treating Comm ents Source Name Type Date Date Clinician NKA Allergy Active ENCCLR 7-20 10:24: 57 NKA Allergy Active ENCCLR 7-20 10:24: 57 NKA Allergy Active ENCCLR 7-20 10:24: 57 Oxybutyn Propensi Active Hallucinatio Methodi in ty to ns 1-21 st Chloride adverse 00:00: Hospita reaction 00 l s to drug No Known Propensi Active Hallucinatio [facility]i Drug ty to ns st Allergie adverse Hospita s reaction l s to drug [id number] Drug Active Unknown Common allergy Spirit - [facility] Family History Family Member Diagnosis Comments Start Date Stop Date Source Natural father No Known Problems Met [facility] Natural brother Cancer [facility] Natural mother Cancer [facility] Social History Social Habit Start Date Stop Date Quantity Comments Source History of Tobacco Common Spirit - Use [facility] Sex Assigned At Common Sp sushma - [facility] Exposure to Not sure Jehovah'S Witness SARS-CoV-2 (event) Hospit al Alcohol intake 2021-09-13 2021-09-13 Current Jehovah'S Witness 00:00:00 00:00:00 non-drinker of Hospital alcohol (finding) Cigarettes smoked 2019-05-15 2019-05-[address] current (pack per 00:00:00 00:00:00 Hospita l day) - Reported Cigarette 2019-05-15 2019-05-15 Jehovah'S Witness pack-years 00:00:00 00:00:00 Hospital Tobacco use and 2019-05-15 2019-05-15 Smokeless tobacco [facility] exposure 00:00:00 00:00:00 non-user Hospital Smoking Status Start Date Stop Date Source Never Smoker Franky magallanes Former Smoker 2022-06-09 00:00:00 2022-06-09 00:00:00 Common S pirit - [facility] Medications Ordered Filled Start Stop Current Ordering Indication Dosage Frequency Signature Comments Components Source Medication Medication Date Date Medication? Clinician (SIG) Name Name traZODone traZODone No 1{table QD traZODone HCl 50 MG HCl 50 MG 1-05 t_at_be HCl 50 MG 00:00: dtime_a 00 s_neede d} FLUoxetine FLUoxetine No 1{capsu QD FLUoxetine HCl 10 MG HCl 10 MG 1-05 le} HCl 10 MG 00:00: 00 traZODone traZODone 2022-0 No 1{table QD traZODone HCl 50 MG HCl 50 MG 1-05 t_at_be HCl 50 MG 00:00: dtime_a 00 s_neede d} FLUoxetine FLUoxetine No 1{capsu QD FLUoxetine HCl 10 MG HCl 10 MG 1-05 le} HCl 10 MG 00:00: 00 traZODone traZODone 2022-0 No 1{table QD traZODone HCl 50 MG HCl 50 MG 1-05 t_at_be HCl 50 MG 00:00: dtime_a 00 s_neede d} FLUoxetine FLUoxetine No 1{capsu QD FLUoxetine HCl 10 MG HCl 10 MG 1-05 le} HCl 10 MG 00:00: 00 FLUoxetine FLUoxetine 2022-0 No 1{table QD FLUoxetine HCl 20 MG HCl 20 MG 1-05 t} HCl 20 MG 00:00: 00 traZODone traZODone 2022-0 No 1{table QD traZODone HCl 50 MG HCl 50 MG 1-05 t_at_be HCl 50 MG 00:00: dtime_a 00 s_neede d} FLUoxetine FLUoxetine No 1{table QD FLUoxetine HCl 20 MG HCl 20 MG 05-18 t} HCl 20 MG 00:00: 00 traZODone traZODone No 1{table QD traZODone HCl 50 MG HCl 50 MG 05-18 t_at_be HCl 50 MG 00:00: dtime_a 00 s_neede d} meclizine 2021-05 Yes 25mg Q.[id number] Take 1 [facility] (ANTIVERT) 05-21 [id number] tablet (25 st 25 mg 09:59: 3D mg total) Hospita tablet 03 by mouth 3 l (three) times a day as needed for dizziness. bicalutamid 2021-05 Yes 50mg QD Take 50 mg Methodi e (CASODEX) 05-[address] 50 mg chemo 09:57: daily. Hosp pricilla tablet 40 l pantoprazol 2021-05 Yes 40mg 1 tablet. M ethodi e 05-21 st (PROTONIX) 09:57: Hospita 40 MG EC 40 l tablet melatonin 3 2021-05 Yes 3mg QD Take 1 Meth zack mg tablet 05-[address] 09:57: mouth Hospita 40 nightly as l needed. citalopram 2021-05 Yes 40mg QD Take 40 mg M ethodi (CeleXA) 40 05-[address] MG tablet 09:57: daily. Hospit a 40 l NIFEdipine 2021-05 No 60mg QD Take 1 Meth zack ER 05-21 tablet (60 st (PROCARDIA- 00:00: 05:59 mg total) Hospita XL) 60 MG 00 :00 by mouth l 24 hr daily. tablet ezetimibe 2021-05 Yes TAKE 1 Method i (ZETIA) 10 0-[address] mg tablet 00:00: MOUTH Hospita 00 DAILY l GENERIC EQUIVALENT FOR ZETIA methylPREDN methylPREDN 2021- No QD methylPRED ISolone 4 ISolone 4 01-06 NISolone 4 MG MG 00:00: 00:00 MG 00 :00 methylPREDN methylPREDN 2021- No QD methylPRED ISolone 4 ISolone 4 01-06 NISolone 4 MG MG 00:00: 00:00 MG 00 :00 aspirin Yes 81mg QD Take 81 mg Meth zack (ECOTRIN) 12-[address] 81 MG 11:06: daily. Hospita enteric 22 l coated tablet LACTOBACILL Yes 1{tbl} QD Take 1 Me thodi US 12-[address] RHAMNOSUS 11:06: mouth Hospita GG 10 daily. l (CULTURELLE ORAL) metoprolol 2022- No 50mg QD Take 1 Meth zack succinate 12-20 08-10 tablet (50 st XL 00:00: 04:59 mg total) Hospita (TOPROL-XL) 00 :00 by mouth l 50 mg 24 hr daily. tablet levETIRAcet Yes 500mg Q.5D Take 500 M ethodi am (KEPPRA) 8-[address] 500 MG 00:00: mouth 2 Hospita tablet 00 (two) l times a day. Eliquis 5 Yes 5mg Q.5D Take 5 mg [facility] mg tablet 11-[address] 00:00: (two) Hospita 00 times a l day. atorvastati Yes 40mg QD Take 40 mg Methodi n (LIPITOR) 7-[address] 40 mg 00:00: nightly. Hospita tablet 00 l NIFEdipine 0 Yes 30mg Q.5D Take 30 mg M ethodi ER 7-[address] (PROCARDIA- 00:00: (two) Hospi ta XL) 30 MG 00 times a l 24 hr day. tablet metoprolol 2021- No 25mg QD Take 25 mg [facility] succinate -[address] XL 00:00: 00:00 daily. Hospita (TOPROL-XL) 00 :00 l 25 mg 24 hr tablet ondansetron Yes 4mg Q8H Take 4 mg M ethodi ODT 7-[address] (ZOFRAN-ODT 00:00: every 8 Hos deo ) 4 MG 00 (eight) l disintegrat hours as ing tablet needed. amLODIPine amLODIPine No 1{table QD amLODIPine Besylate 10 Besylate 10 7- t} Besylate MG MG 00:00: 10 MG 00 hydrALAZINE hydrALAZINE 2-0 No 1{table TID hydrALAZIN HCl 25 MG HCl 25 MG - t_with_ E HCl 25 00:00: food} MG 00 Metoprolol Metoprolol 2-0 No 1{table BID Metoprolol Tartrate 50 Tartrate 50 - t_with_ Tartrate MG MG 00:00: food} 50 MG 00 hydrALAZINE hydrALAZINE 2-0 No 1{table TID hydrALAZIN HCl 25 MG HCl 25 MG - t_with_ E HCl 25 00:00: food} MG 00 amLODIPine amLODIPine 2021-0 No 1{table QD amLODIPine Besylate 10 Besylate 10 11-11 t} Besylate MG MG 00:00: 10 MG 00 Metoprolol Metoprolol 2021-0 No 1{table BID Metoprolol Tartrate 50 Tartrate 50 - t_with_ Tartrate MG MG 00:00: food} 50 MG 00 hydrALAZINE hydrALAZINE 2021-0 No 1{table TID hydrALAZIN HCl 25 MG HCl 25 MG - t_with_ E HCl 25 00:00: food} MG 00 amLODIPine amLODIPine 2021-0 No 1{table QD amLODIPine Besylate 10 Besylate 10 11-11 t} Besylate MG MG 00:00: 10 MG 00 Metoprolol Metoprolol 2021-0 No 1{table BID Metoprolol Tartrate 50 Tartrate 50 - t_with_ Tartrate MG MG 00:00: food} 50 MG 00 hydrALAZINE hydrALAZINE 2021-0 No 1{table TID hydrALAZIN HCl 25 MG HCl 25 MG - t_with_ E HCl 25 00:00: food} MG 00 amLODIPine amLODIPine 2-0 No 1{table QD amLODIPine Besylate 10 Besylate 10 11-11 t} Besylate MG MG 00:00: 10 MG 00 Metoprolol Metoprolol 2-0 No 1{table BID Metoprolol Tartrate 50 Tartrate 50 - t_with_ Tartrate MG MG 00:00: food} 50 MG 00 amLODIPine amLODIPine 2021-0 No 1{table QD amLODIPine Besylate 10 Besylate 10 11-11 t} Besylate MG MG 00:00: 10 MG 00 hydrALAZINE hydrALAZINE 2021-0 No 1{table TID hydrALAZIN HCl 25 MG HCl 25 MG 11-11 t_with_ E HCl 25 00:00: food} MG 00 Metoprolol Metoprolol 2021-0 No 1{table BID Metoprolol Tartrate 50 Tartrate 50 - t_with_ Tartrate MG MG 00:00: food} 50 MG 00 amLODIPine amLODIPine 2021-0 No 1{table QD amLODIPine Besylate 10 Besylate 10 11-11 t} Besylate MG MG 00:00: 10 MG 00 hydrALAZINE hydrALAZINE 2021-0 No 1{table TID hydrALAZIN HCl 25 MG HCl 25 MG 11-11 t_with_ E HCl 25 00:00: food} MG 00 Metoprolol Metoprolol 2021-0 No 1{table BID Metoprolol Tartrate 50 Tartrate 50 11-11 t_with_ Tartrate MG MG 00:00: food} 50 MG 00 amLODIPine amLODIPine 2021-0 No 1{table QD amLODIPine Besylate 10 Besylate 10 11-11 t} Besylate MG MG 00:00: 10 MG 00 hydrALAZINE hydrALAZINE 2021-0 No 1{table TID hydrALAZIN HCl 25 MG HCl 25 MG 11-11 t_with_ E HCl 25 00:00: food} MG 00 Metoprolol Metoprolol 2021-0 No 1{table BID Metoprolol Tartrate 50 Tartrate 50 11-11 t_with_ Tartrate MG MG 00:00: food} 50 MG 00 amLODIPine amLODIPine 2021-0 No 1{table QD amLODIPine Besylate 10 Besylate 10 11-11 t} Besylate MG MG 00:00: 10 MG 00 hydrALAZINE hydrALAZINE 2021-0 No 1{table TID hydrALAZIN HCl 25 MG HCl 25 MG 11-11 t_with_ E HCl 25 00:00: food} MG 00 Metoprolol Metoprolol 2021-0 No 1{table BID Metoprolol Tartrate 50 Tartrate 50 11-11 t_with_ Tartrate MG MG 00:00: food} 50 MG 00 amLODIPine amLODIPine 2021-0 No 1{table QD amLODIPine Besylate 10 Besylate 10 11-11 t} Besylate MG MG 00:00: 10 MG 00 hydrALAZINE hydrALAZINE No 1{table TID hydrALAZIN HCl 25 MG HCl 25 MG 11-11 t_with_ E HCl 25 00:00: food} MG 00 Metoprolol Metoprolol No 1{table BID Metoprolol Tartrate 50 Tartrate 50 11-11 t_with_ Tartrate MG MG 00:00: food} 50 MG 00 metoprolol Yes TAKE 1 Metho di succinate 6-[address] XL 00:00: MOUTH Hospita (TOPROL-XL) 00 DAILY l 50 mg 24 hr tablet rosuvastati Yes 40mg QD Take 1 Meth zack n (CRESTOR) 4-27 tablet (40 st 40 MG 00:00: mg total) Hospita tablet 00 by mouth l daily. metoprolol 2021- No 50mg QD Take 1 Meth zack succinate 4-19 06-30 tablet (50 st XL 00:00: 00:00 mg total) Hospita (TOPROL-XL) 00 :00 by mouth l 50 mg 24 hr daily. tablet clopidogreL 2021- No TAKE 1 [facility] (PLAVIX) 75 4-18 08-[address] mg tablet 00:00: 00:00 MOUTH Hospit a 00 :00 DAILY. l GENERIC EQUIVALENT FOR PLAVIX. citalopram Yes 40mg QD Take 40 mg [...] a tablet 00 BY MOUTH l DAILY losartan 2021- No TAKE 1 Method i (COZAAR) 06-16- TABLET(100 st 100 MG 00:00: 00:00 MG TOTAL) Hospi ta tablet 00 :00 BY MOUTH l DAILY citalopram Yes 40mg QD Take 40 mg M ethodi (CeleXA) 40 06-[address] MG tablet 09:24: daily. [...] pricilla tablet 34 l traMADoL 2021- No [id number] 50mg Q6H Take 1 Metho di (ULTRAM) 50 06-09- tablet (50 s t mg tablet 00:00: 05:59 mg total) Ho spita 00 :00 by mouth l every 6 (six) hours as needed for moderate pain for up to 3 days .acute pain. Take after surgery as needed for significan t pain. traMADoL 2021- No [id number] 50mg Q6H Take 1 Metho di (ULTRAM) 50 06-09- tablet (50 s t mg tablet 00:00: [...] 100mg QD Take 1 Method i (COZAAR) - tablet st 100 MG 00:00: (100 mg Hospita tablet 00 total) by l mouth daily. metoprolol Yes 50mg QD Take 1 Metho di succinate 06-08 tablet (50 st XL 00:00: mg total) Hospita (TOPROL-XL) 00 by mouth l 50 mg 24 hr daily. tablet metoprolol 2021- No 50mg QD Take 1 [...] DAILY l GENERIC EQUIVALENT FOR CRESTOR rosuvastati TAKE 1 Met hodi n (CRESTOR) 1-04 - TABLET BY st 40 MG 00:00: 00:00 MOUTH Hospita tablet 00 :00 DAILY l GENERIC EQUIVALENT FOR CRESTOR HYDROcodone 2020-05 1{tbl} Q6H Take 1 [facility] -acetaminop 2-10 06- tablet by st hen (Nonpareil) 00:00: 05:59 mouth Hosp pricilla 5-325 mg 00 :00 every 6 l per tablet (six) hours as needed for moderate pain for up to 10 days .acute pain. Max Daily Amount: 4 tablets HYDROcodone 2020-05 1{tbl} Q6H Take 1 [facility] -acetaminop -10 06- tablet by st hen (Nonpareil) 00:00: 05:59 mouth Hosp pricilla 5-325 mg 00 :00 every 6 l per tablet (six) hours as needed for moderate pain for up to 10 days .acute pain. Max Daily Amount: 4 tablets bicalutamid 2020-05 50mg QD Take 50 mg Methodi e (CASODEX) 0-26 10-[address] 50 mg chemo 06:13: 00:00 daily. Hos deo tablet 44 :00 l bicalutamid 2020-05 50mg QD Take 50 mg Methodi e (CASODEX) 0-26 10-[address] 50 mg chemo 06:13: 00:00 daily. Hos deo tablet 44 :00 l bicalutamid 2020-05 [id number] TAKE 1 Methodi e (CASODEX) 0-26 - TABLET BY st 50 mg chemo 00:00: 05:59 MOUTH 2 Ho spita tablet 00 :00 TIMES A l DAY GENERIC EQUIVALENT FOR CASODEX bicalutamid 2020-05 [id number] TAKE 1 Methodi e (CASODEX) 0-26 11-[address] 50 mg chemo 00:00: 05:59 MOUTH 2 Ho spita tablet 00 :00 TIMES A l DAY GENERIC EQUIVALENT FOR CASODEX metoprolol 2020-05 No TAKE 1 Meth zack succinate 0-25 - TABLET BY st XL 00:00: 00:00 MOUTH [...] No TAKE 1 Met hodi n (CRESTOR) 05-[address] 40 MG 00:00: 00:00 MOUTH Hospita tablet 00 :00 DAILY l GENERIC EQUIVALENT FOR CRESTOR rosuvastati 2020-05- No TAKE 1 Met hodi n (CRESTOR) 05-[address] 40 MG 00:00: 00:00 MOUTH Hospita tablet 00 :00 DAILY l GENERIC EQUIVALENT FOR CRESTOR ceftriaxone ceftriaxone No ceftriaxon Wilkins 1 gram 1 gram 8-05 e 1 gram Metro solution solution 10:16: solution U rology for for 28 for injectionTa injectionTa injectionT ke 1 g by ke 1 g by arabella 1 g by injection injection injection route. route. route. ezetimibe Yes TAKE 1 Method i (ZETIA) 10 7-[address] mg tablet 00:00: MOUTH Hospita 00 DAILY l GENERIC EQUIVALENT FOR ZETIA ezetimibe Yes TAKE 1 Method i (ZETIA) 10 7-[address] mg tablet 00:00: MOUTH Hospita 00 DAILY l GENERIC EQUIVALENT FOR ZETIA ezetimibe 2021- No TAKE 1 Metho di (ZETIA) 10 7-14 10-[address] mg tablet 00:00: 00:00 MOUTH Hospit a 00 :00 DAILY l GENERIC EQUIVALENT FOR ZETIA metoprolol 2020- No TAKE 1 Meth zack succinate -22 -[address] XL 00:00: 00:00 MOUTH Hospita (TOPROL-XL) 00 :00 DAILY l 50 mg 24 hr tablet metoprolol 2020- No TAKE 1 Meth zack succinate 11-02-[address] XL 00:00: 00:00 MOUTH Hospita (TOPROL-XL) 00 :00 DAILY l 50 mg 24 hr tablet losartan 2020- No TAKE 1 Method i (COZAAR) 10-[address] 100 MG 00:00: 00:00 MOUTH Hospita tablet 00 :00 DAILY l losartan 2020- No TAKE 1 Method i (COZAAR) 10-[address] 100 MG 00:00: 00:00 MOUTH Hospita tablet 00 :00 DAILY l amLODIPine 2021- No [id number] 5mg Q.5D Take 1 [facility] (NORVASC) 5 -03 14- tablet (5 st mg tablet 00:00: 00:00 mg total) Ho spita 00 :00 by mouth 2 l (two) times a day. amLODIPine 2021- No [id number] 5mg Q.5D Take 1 [facility] (NORVASC) 5 [...] 50mg QD Take 1 Meth zack succinate 3-06 11- tablet (50 st XL 00:00: 00:00 mg total) Hospita (TOPROL-XL) 00 :00 by mouth l 50 mg 24 hr daily. tablet metoprolol 2020- No 50mg QD Take 1 Meth zack succinate 08-06- tablet (50 st XL 00:00: 00:00 mg total) Hospita (TOPROL-XL) 00 :00 by mouth l 50 mg 24 hr daily. tablet losartan 2020- No 100mg QD Take 1 Metho di (Cozaar) 08-05 06-[address] 100 MG 00:00: 00:00 (100 mg Hospita tablet 00 :00 total) by l mouth daily. losartan 2020- No 100mg QD Take 1 Metho di (Cozaar) 08-05-[address] 100 MG 00:00: 00:00 (100 mg Hospita tablet 00 :00 total) by l mouth daily. metoprolol 2020- No 100mg QD Take 1 Met [facility]odi succinate 07-26- tablet st XL 00:00: 00:00 (100 mg Hospita (TOPROL-XL) 00 :00 total) by l 100 mg 24 mouth hr tablet daily. metoprolol 2020- No 100mg QD Take 1 Met hodi succinate 3- tablet st XL 00:00: 00:00 (100 mg [...] ta 55 :00 l amLODIPine 2020- No [id number] 5mg Q.5D Take 1 [facility] (NORVASC) 5 2-16 05-11 tablet (5 st mg tablet 00:00: 00:00 mg total) Ho spita 00 :00 by mouth 2 l (two) times a day. amLODIPine 2020- No [id number] 5mg Q.5D Take 1 [facility] (NORVASC) 5 [...] deo 00 by mouth l daily. clopidogreL 2021- No 75mg QD Take 1 Met [facility]odi (Plavix) 75 - 04-18 tablet (75 s t mg tablet 00:00: 00:00 mg total) Ho spita 00 :00 by mouth l daily. losartan 2020- No 100mg QD Take 1 Metho di (Cozaar) 1- 03-[address] 100 MG 00:00: 00:00 (100 mg Hospita tablet 00 :00 total) by l mouth daily. losartan 2020- No 100mg QD Take 1 Metho di (Cozaar) 1-05 03-[address] 100 MG 00:00: 00:00 (100 mg Hospita tablet 00 :00 total) by l mouth daily. bicalutamid 2019-05- No 50mg Q.5D Take 1 Met hodi e (CASODEX) 06-01-18 tablet (50 s t 50 mg chemo 00:00: 05:59 mg total) Hospita tablet 00 :00 by mouth 2 l (two) times a day for 90 days. bicalutamid 2019-05- No 50mg Q.5D Take 1 Met hodi e (CASODEX) 06-01-18 tablet (50 s t 50 mg chemo 00:00: 05:59 mg total) Hospita tablet 00 :00 by mouth 2 l (two) times a day for 90 days. ezetimibe 2020- No 10mg QD Take 1 Metho di (ZETIA) 10 01-14-14 tablet (10 st mg tablet 00:00: 00:00 mg total) Ho spita 00 :00 by mouth l daily. ezetimibe 2020- No 10mg QD Take 1 Metho di (ZETIA) 10 01-14-14 tablet (10 st mg tablet 00:00: 00:00 mg total) Ho spita 00 :00 by mouth l daily. amLODIPine 2020- No [id number] 10mg Q.5D Take 1 [facility] (NORVASC) 12-29-16 tablet (10 st 10 mg 00:00: 00:00 mg total) Hospit a tablet 00 :00 by mouth 2 l (two) times a day. amLODIPine 2020- No [id number] 10mg Q.5D Take 1 [facility] (NORVASC) 12-29-16 tablet (10 st 10 mg 00:00: 00:00 mg total) Hospit a tablet 00 :00 by mouth 2 l (two) times a day. metoprolol 2020- No 100mg QD Take 1 Met hodi succinate 09-29 03-[address] XL 00:00: 00:00 (100 mg Hospita (TOPROL-XL) 00 :00 total) by l 100 mg 24 mouth hr tablet daily. metoprolol 2020- No 100mg QD Take 1 Met hodi succinate 09-29 03-[address] XL 00:00: 00:00 (100 mg Hospita (TOPROL-XL) 00 :00 total) by l 100 mg 24 mouth hr tablet daily. cefTRIAXone Yes [id number] 1g M ethodi (ROCEPHIN) 5-18 st injection 1 14:00: Hospit a g 00 l cefTRIAXone 2019- Yes [id number] 1g M ethodi (ROCEPHIN) 5-18 st injection 1 14:00: Hospit a g 00 l cefTRIAXone 2019-0 Yes [id number] 1g M ethodi (ROCEPHIN) 5-18 st injection 1 14:00: Hospit a g 00 l No Active 2014- Yes No Active Mem oria Medications - Medication l 16:18: s No Active Yes No Active [facility] Medications 06-05 Medication l 16:18: [place] 01 Ezetimibe Ezetimibe No Ezetimibe 10 MG 10 MG 10 MG Pantoprazol Pantoprazol No 1{table BID Pantoprazo e Sodium 40 e Sodium 40 t} le Sodium MG MG 40 MG Citalopram Citalopram No Citalopram Hydrobromid Hydrobromid Hydrobromi e 40 MG e 40 MG de 40 MG Super B Super B No Super B Complex Complex Complex Metoprolol Metoprolol No Metoprolol Succinate Succinate Succinate ER 50 MG ER 50 MG ER 50 MG Bicalutamid Bicalutamid No Bicalutami e 50 MG e 50 MG de 50 MG Losartan Losartan No Losartan Potassium Potassium Potassium 100 MG 100 MG 100 MG amLODIPine amLODIPine No amLODIPine Besylate 5 Besylate 5 Besylate 5 MG MG MG Rosuvastati Rosuvastati No Rosuvastat n Calcium n Calcium in Calcium 40 MG 40 MG 40 MG Pantoprazol Pantoprazol No 1{table BID Pantoprazo e Sodium 40 e Sodium 40 t} le Sodium MG MG 40 MG Clopidogrel Clopidogrel No Clopidogre Bisulfate Bisulfate l 75 MG 75 MG Bisulfate 75 MG Vitamin D Vitamin D No Vitamin D Citalopram Citalopram No Citalopram Hydrobromid Hydrobromid Hydrobromi e 40 MG e 40 MG de 40 MG amLODIPine amLODIPine No amLODIPine Besylate 5 Besylate 5 Besylate 5 MG MG MG Ezetimibe Ezetimibe No Ezetimibe 10 MG 10 MG 10 MG Super B Super B No Super B Complex Complex Complex Melatonin 3 Melatonin 3 No 1{table Melatonin MG MG t_at_be 3 MG dtime_a s_neede d} Rosuvastati Rosuvastati No Rosuvastat n Calcium n Calcium in Calcium 40 MG 40 MG 40 MG Atorvastati Atorvastati No 1{table QD Atorvastat n Calcium n Calcium t} in Calcium 40 MG 40 MG 40 MG Zofran Zofran No Zofran Vitamin D Vitamin D No Vitamin D amLODIPine amLODIPine No amLODIPine Besylate 5 Besylate 5 Besylate 5 MG MG MG Clopidogrel Clopidogrel No Clopidogre Bisulfate Bisulfate l 75 MG 75 MG Bisulfate 75 MG Meclizine Meclizine No 2{table Meclizine HCl 12.5 MG HCl 12.5 MG ts_as_n HCl 12.5 eeded} MG Pantoprazol Pantoprazol No 1{table BID Pantoprazo e Sodium 40 e Sodium 40 t} le Sodium MG MG 40 MG Eliquis 5 Eliquis 5 No 1{table BID Eliquis 5 MG MG t} MG Keppra 500 Keppra 500 No 2{table BID Keppra 500 MG MG ts} MG Citalopram Citalopram No QD Citalopram Hydrobromid Hydrobromid Hydrobromi e 20 MG e 20 MG de 20 MG Metoprolol Metoprolol No 1{table QD Metoprolol Succinate Succinate t} Succinate ER 25 MG ER 25 MG ER 25 MG Super B Super B No Super B Complex Complex Complex Ezetimibe Ezetimibe No Ezetimibe 10 MG 10 MG 10 MG Nifedipine Nifedipine No 1{table BID Nifedipine ER 30 mg ER 30 mg t} ER 30 mg Melatonin 3 Melatonin 3 No 1{table Melatonin MG MG t_at_be 3 MG dtime_a s_neede d} Rosuvastati Rosuvastati No Rosuvastat n Calcium n Calcium in Calcium 40 MG 40 MG 40 MG Atorvastati Atorvastati No 1{table QD Atorvastat n Calcium n Calcium t} in Calcium 40 MG 40 MG 40 MG Zofran Zofran No Zofran Vitamin D Vitamin D No Vitamin D amLODIPine amLODIPine No amLODIPine Besylate 5 Besylate 5 Besylate 5 MG MG MG Clopidogrel Clopidogrel No Clopidogre Bisulfate Bisulfate l 75 MG 75 MG Bisulfate 75 MG Meclizine Meclizine No 2{table Meclizine HCl 12.5 MG HCl 12.5 MG ts_as_n HCl 12.5 eeded} MG Pantoprazol Pantoprazol No 1{table BID Pantoprazo e Sodium 40 e Sodium 40 t} le Sodium MG MG 40 MG Eliquis 5 Eliquis 5 No 1{table BID Eliquis 5 MG MG t} MG Keppra 500 Keppra 500 No 2{table BID Keppra 500 MG MG ts} MG Citalopram Citalopram No QD Citalopram Hydrobromid Hydrobromid Hydrobromi e 20 MG e 20 MG de 20 MG Metoprolol Metoprolol No 1{table QD Metoprolol Succinate Succinate t} Succinate ER 25 MG ER 25 MG ER 25 MG Super B Super B No Super B Complex Complex Complex Ezetimibe Ezetimibe No Ezetimibe 10 MG 10 MG 10 MG Nifedipine Nifedipine No 1{table BID Nifedipine ER 30 mg ER 30 mg t} ER 30 mg Melatonin 3 Melatonin 3 No 1{table Melatonin MG MG t_at_be 3 MG dtime_a s_neede d} Rosuvastati Rosuvastati No Rosuvastat n Calcium n Calcium in Calcium 40 MG 40 MG 40 MG Atorvastati Atorvastati No 1{table QD Atorvastat n Calcium n Calcium t} in Calcium 40 MG 40 MG 40 MG Zofran Zofran No Zofran Vitamin D Vitamin D No Vitamin D amLODIPine amLODIPine No amLODIPine Besylate 5 Besylate 5 Besylate 5 MG MG MG Clopidogrel Clopidogrel No Clopidogre Bisulfate Bisulfate l 75 MG 75 MG Bisulfate 75 MG Meclizine Meclizine No 2{table Meclizine HCl 12.5 MG HCl 12.5 MG ts_as_n HCl 12.5 eeded} MG Pantoprazol Pantoprazol No 1{table BID Pantoprazo e Sodium 40 e Sodium 40 t} le Sodium MG MG 40 MG Eliquis 5 Eliquis 5 No 1{table BID Eliquis 5 MG MG t} MG Keppra 500 Keppra 500 No 2{table BID Keppra 500 MG MG ts} MG Citalopram Citalopram No QD Citalopram Hydrobromid Hydrobromid Hydrobromi e 20 MG e 20 MG de 20 MG Metoprolol Metoprolol No 1{table QD Metoprolol Succinate Succinate t} Succinate ER 25 MG ER 25 MG ER 25 MG Super B Super B No Super B Complex Complex Complex Ezetimibe Ezetimibe No Ezetimibe 10 MG 10 MG 10 MG Nifedipine Nifedipine No 1{table BID Nifedipine ER 30 mg ER 30 mg t} ER 30 mg Benzonatate Benzonatate No 1{capsu TID Benzonatat 200 MG 200 MG le} e 200 MG Rosuvastati Rosuvastati No Rosuvastat n Calcium n Calcium in Calcium 40 MG 40 MG 40 MG Pantoprazol Pantoprazol No 1{table BID Pantoprazo e Sodium 40 e Sodium 40 t} le Sodium MG MG 40 MG Eliquis 5 Eliquis 5 No 1{table BID Eliquis 5 MG MG t} MG Azithromyci Azithromyci No QD Azithromyc n 250 MG n 250 MG in 250 MG Keppra 500 Keppra 500 No 2{table BID Keppra 500 MG MG ts} MG amLODIPine amLODIPine No amLODIPine Besylate 5 Besylate 5 Besylate 5 MG MG MG Super B Super B No Super B Complex Complex Complex Melatonin 3 Melatonin 3 No 1{table Melatonin MG MG t_at_be 3 MG dtime_a s_neede d} Citalopram Citalopram No Citalopram Hydrobromid Hydrobromid Hydrobromi e 40 MG e 40 MG de 40 MG Zofran Zofran No Zofran Meclizine Meclizine No 2{table Meclizine HCl 12.5 MG HCl 12.5 MG ts_as_n HCl 12.5 eeded} MG Atorvastati Atorvastati No 1{table QD Atorvastat n Calcium n Calcium t} in Calcium 40 MG 40 MG 40 MG Vitamin D Vitamin D No Vitamin D Clopidogrel Clopidogrel No Clopidogre Bisulfate Bisulfate l 75 MG 75 MG Bisulfate 75 MG Nifedipine Nifedipine No 1{table BID Nifedipine ER 30 mg ER 30 mg t} ER 30 mg Ezetimibe Ezetimibe No Ezetimibe 10 MG 10 MG 10 MG Metoprolol Metoprolol No 1{table QD Metoprolol Succinate Succinate t} Succinate ER 25 MG ER 25 MG ER 25 MG Benzonatate Benzonatate No 1{capsu TID Benzonatat 200 MG 200 MG le} e 200 MG Rosuvastati Rosuvastati No Rosuvastat n Calcium n Calcium in Calcium 40 MG 40 MG 40 MG Pantoprazol Pantoprazol No 1{table BID Pantoprazo e Sodium 40 e Sodium 40 t} le Sodium MG MG 40 MG Eliquis 5 Eliquis 5 No 1{table BID Eliquis 5 MG MG t} MG Azithromyci Azithromyci No QD Azithromyc n 250 MG n 250 MG in 250 MG Keppra 500 Keppra 500 No 2{table BID Keppra 500 MG MG ts} MG amLODIPine amLODIPine No amLODIPine Besylate 5 Besylate 5 Besylate 5 MG MG MG Super B Super B No Super B Complex Complex Complex Melatonin 3 Melatonin 3 No 1{table Melatonin MG MG t_at_be 3 MG dtime_a s_neede d} Citalopram Citalopram No Citalopram Hydrobromid Hydrobromid Hydrobromi e 40 MG e 40 MG de 40 MG Zofran Zofran No Zofran Meclizine Meclizine No 2{table Meclizine HCl 12.5 MG HCl 12.5 MG ts_as_n HCl 12.5 eeded} MG Atorvastati Atorvastati No 1{table QD Atorvastat n Calcium n Calcium t} in Calcium 40 MG 40 MG 40 MG Vitamin D Vitamin D No Vitamin D Clopidogrel Clopidogrel No Clopidogre Bisulfate Bisulfate l 75 MG 75 MG Bisulfate 75 MG Nifedipine Nifedipine No 1{table BID Nifedipine ER 30 mg ER 30 mg t} ER 30 mg Ezetimibe Ezetimibe No Ezetimibe 10 MG 10 MG 10 MG Metoprolol Metoprolol No 1{table QD Metoprolol Succinate Succinate t} Succinate ER 25 MG ER 25 MG ER 25 MG Pantoprazol Pantoprazol No 1{table BID Pantoprazo e Sodium 40 e Sodium 40 t} le Sodium MG MG 40 MG Azithromyci Azithromyci No QD Azithromyc n 250 MG n 250 MG in 250 MG Rosuvastati Rosuvastati No Rosuvastat n Calcium n Calcium in Calcium 40 MG 40 MG 40 MG Benzonatate Benzonatate No 1{capsu TID Benzonatat 200 MG 200 MG le} e 200 MG Eliquis 5 Eliquis 5 No 1{table BID Eliquis 5 MG MG t} MG Vitamin D Vitamin D No Vitamin D Keppra 500 Keppra 500 No 2{table BID Keppra 500 MG MG ts} MG amLODIPine amLODIPine No amLODIPine Besylate 5 Besylate 5 Besylate 5 MG MG MG Super B Super B No Super B Complex Complex Complex Melatonin 3 Melatonin 3 No 1{table Melatonin MG MG t_at_be 3 MG dtime_a s_neede d} Citalopram Citalopram No Citalopram Hydrobromid Hydrobromid Hydrobromi e 40 MG e 40 MG de 40 MG Clopidogrel Clopidogrel No Clopidogre Bisulfate Bisulfate l 75 MG 75 MG Bisulfate 75 MG Meclizine Meclizine No 2{table Meclizine HCl 12.5 MG HCl 12.5 MG ts_as_n HCl 12.5 eeded} MG Atorvastati Atorvastati No 1{table QD Atorvastat n Calcium n Calcium t} in Calcium 40 MG 40 MG 40 MG Zofran Zofran No Zofran Nifedipine Nifedipine No 1{table BID Nifedipine ER 30 mg ER 30 mg t} ER 30 mg Ezetimibe Ezetimibe No Ezetimibe 10 MG 10 MG 10 MG Metoprolol Metoprolol No 1{table QD Metoprolol Succinate Succinate t} Succinate ER 25 MG ER 25 MG ER 25 MG Pantoprazol Pantoprazol No 1{table BID Pantoprazo e Sodium 40 e Sodium 40 t} le Sodium MG MG 40 MG Azithromyci Azithromyci No QD Azithromyc n 250 MG n 250 MG in 250 MG Rosuvastati Rosuvastati No Rosuvastat n Calcium n Calcium in Calcium 40 MG 40 MG 40 MG Benzonatate Benzonatate No 1{capsu TID Benzonatat 200 MG 200 MG le} e 200 MG Eliquis 5 Eliquis 5 No 1{table BID Eliquis 5 MG MG t} MG Vitamin D Vitamin D No Vitamin D Keppra 500 Keppra 500 No 2{table BID Keppra 500 MG MG ts} MG amLODIPine amLODIPine No amLODIPine Besylate 5 Besylate 5 Besylate 5 MG MG MG Super B Super B No Super B Complex Complex Complex Melatonin 3 Melatonin 3 No 1{table Melatonin MG MG t_at_be 3 MG dtime_a s_neede d} Citalopram Citalopram No Citalopram Hydrobromid Hydrobromid Hydrobromi e 40 MG e 40 MG de 40 MG Clopidogrel Clopidogrel No Clopidogre Bisulfate Bisulfate l 75 MG 75 MG Bisulfate 75 MG Meclizine Meclizine No 2{table Meclizine HCl 12.5 MG HCl 12.5 MG ts_as_n HCl 12.5 eeded} MG Atorvastati Atorvastati No 1{table QD Atorvastat n Calcium n Calcium t} in Calcium 40 MG 40 MG 40 MG Zofran Zofran No Zofran Nifedipine Nifedipine No 1{table BID Nifedipine ER 30 mg ER 30 mg t} ER 30 mg Ezetimibe Ezetimibe No Ezetimibe 10 MG 10 MG 10 MG Metoprolol Metoprolol No 1{table QD Metoprolol Succinate Succinate t} Succinate ER 25 MG ER 25 MG ER 25 MG Meclizine Meclizine No 2{table Meclizine HCl 12.5 MG HCl 12.5 MG ts_as_n HCl 12.5 eeded} MG Nifedipine Nifedipine No 1{table BID Nifedipine ER 30 mg ER 30 mg t} ER 30 mg Ezetimibe Ezetimibe No Ezetimibe 10 MG 10 MG 10 MG Keppra 500 Keppra 500 No 1{table BID Keppra 500 MG MG t} MG Eliquis 5 Eliquis 5 No 1{table BID Eliquis 5 MG MG t} MG Citalopram Citalopram No Citalopram Hydrobromid Hydrobromid Hydrobromi e 40 MG e 40 MG de 40 MG Melatonin 3 Melatonin 3 No 1{table Melatonin MG MG t_at_be 3 MG dtime_a s_neede d} Atorvastati Atorvastati No 1{table QD Atorvastat n Calcium n Calcium t} in Calcium 40 MG 40 MG 40 MG Vitamin D Vitamin D No Vitamin D Metoprolol Metoprolol No 1{table QD Metoprolol Succinate Succinate t} Succinate ER 25 MG ER 25 MG ER 25 MG Pantoprazol Pantoprazol No 1{table BID Pantoprazo e Sodium 40 e Sodium 40 t} le Sodium MG MG 40 MG Citalopram Citalopram No Citalopram Hydrobromid Hydrobromid Hydrobromi e 40 MG e 40 MG de 40 MG Zofran Zofran No Zofran Nifedipine Nifedipine No 1{table BID Nifedipine ER 30 mg ER 30 mg t} ER 30 mg Vitamin D Vitamin D No Vitamin D Meclizine Meclizine No 2{table Meclizine HCl 12.5 MG HCl 12.5 MG ts_as_n HCl 12.5 eeded} MG Melatonin 3 Melatonin 3 No 1{table Melatonin MG MG t_at_be 3 MG dtime_a s_neede d} Ezetimibe Ezetimibe No Ezetimibe 10 MG 10 MG 10 MG Eliquis 5 Eliquis 5 No Eliquis 5 MG MG MG Pantoprazol Pantoprazol No 1{table BID Pantoprazo e Sodium 40 e Sodium 40 t} le Sodium MG MG 40 MG Atorvastati Atorvastati No 1{table QD Atorvastat n Calcium n Calcium t} in Calcium 40 MG 40 MG 40 MG levETIRAcet levETIRAcet No levETIRAce am 500 MG am 500 MG [place] 500 MG Zofran Zofran No Zofran NIFEdipine NIFEdipine No 1{table BID NIFEdipine ER 60 MG ER 60 MG t_on_an ER 60 MG _empty_ stomach } Metoprolol Metoprolol No 1{table QD Metoprolol Succinate Succinate t} Succinate ER 50 MG ER 50 MG ER 50 MG Nifedipine Nifedipine No 1{table BID Nifedipine ER 30 mg ER 30 mg t} ER 30 mg Vitamin D Vitamin D No Vitamin D Meclizine Meclizine No 2{table Meclizine HCl 12.5 MG HCl 12.5 MG ts_as_n HCl 12.5 eeded} MG Melatonin 3 Melatonin 3 No 1{table Melatonin MG MG t_at_be 3 MG dtime_a s_neede d} Ezetimibe Ezetimibe No Ezetimibe 10 MG 10 MG 10 MG Eliquis 5 Eliquis 5 No Eliquis 5 MG MG MG Pantoprazol Pantoprazol No 1{table BID Pantoprazo e Sodium 40 e Sodium 40 t} le Sodium MG MG 40 MG Atorvastati Atorvastati No 1{table QD Atorvastat n Calcium n Calcium t} in Calcium 40 MG 40 MG 40 MG levETIRAcet levETIRAcet No levETIRAce am 500 MG am 500 MG [place] 500 MG Zofran Zofran No Zofran NIFEdipine NIFEdipine No 1{table BID NIFEdipine ER 60 MG ER 60 MG t_on_an ER 60 MG _empty_ stomach } Metoprolol Metoprolol No 1{table QD Metoprolol Succinate Succinate t} Succinate ER 50 MG ER 50 MG ER 50 MG Nifedipine Nifedipine No 1{table BID Nifedipine ER 30 mg ER 30 mg t} ER 30 mg Vitamin D Vitamin D No Vitamin D Meclizine Meclizine No 2{table Meclizine HCl 12.5 MG HCl 12.5 MG ts_as_n HCl 12.5 eeded} MG Melatonin 3 Melatonin 3 No 1{table Melatonin MG MG t_at_be 3 MG dtime_a s_neede d} Ezetimibe Ezetimibe No Ezetimibe 10 MG 10 MG 10 MG Eliquis 5 Eliquis 5 No Eliquis 5 MG MG MG Pantoprazol Pantoprazol No 1{table BID Pantoprazo e Sodium 40 e Sodium 40 t} le Sodium MG MG 40 MG Atorvastati Atorvastati No 1{table QD Atorvastat n Calcium n Calcium t} in Calcium 40 MG 40 MG 40 MG levETIRAcet levETIRAcet No levETIRAce am 500 MG am 500 MG [place] 500 MG Zofran Zofran No Zofran NIFEdipine NIFEdipine No 1{table BID NIFEdipine ER 60 MG ER 60 MG t_on_an ER 60 MG _empty_ stomach } Metoprolol Metoprolol No 1{table QD Metoprolol Succinate Succinate t} Succinate ER 50 MG ER 50 MG ER 50 MG Eliquis 5 Eliquis 5 No Eliquis 5 MG MG MG Eliquis 5 Eliquis 5 No 1{table BID Eliquis 5 MG MG t} MG Atorvastati Atorvastati No Atorvastat n Calcium n Calcium in Calcium 40 MG 40 MG 40 MG Melatonin 3 Melatonin 3 No 1{table Melatonin MG MG t_at_be 3 MG dtime_a s_neede d} Vitamin D Vitamin D No Vitamin D Pantoprazol Pantoprazol No 1{table BID Pantoprazo e Sodium 40 e Sodium 40 t} le Sodium MG MG 40 MG levETIRAcet levETIRAcet No levETIRAce am 500 MG am 500 MG [place] 500 MG Keppra 500 Keppra 500 No 1{table BID Keppra 500 MG MG t} MG Nifedipine Nifedipine No 1{table BID Nifedipine ER 30 mg ER 30 mg t} ER 30 mg Meclizine Meclizine No 2{table Meclizine HCl 12.5 MG HCl 12.5 MG ts_as_n HCl 12.5 eeded} MG Ezetimibe Ezetimibe No Ezetimibe 10 MG 10 MG 10 MG Metoprolol Metoprolol No 1{table QD Metoprolol Succinate Succinate t} Succinate ER 25 MG ER 25 MG ER 25 MG NIFEdipine NIFEdipine No 1{table BID NIFEdipine ER 60 MG ER 60 MG t_on_an ER 60 MG _empty_ stomach } Atorvastati Atorvastati No 1{table QD Atorvastat n Calcium n Calcium t} in Calcium 40 MG 40 MG 40 MG Zofran Zofran No Zofran Eliquis 5 Eliquis 5 No Eliquis 5 MG MG MG Eliquis 5 Eliquis 5 No 1{table BID Eliquis 5 MG MG t} MG Atorvastati Atorvastati No Atorvastat n Calcium n Calcium in Calcium 40 MG 40 MG 40 MG Melatonin 3 Melatonin 3 No 1{table Melatonin MG MG t_at_be 3 MG dtime_a s_neede d} Vitamin D Vitamin D No Vitamin D Pantoprazol Pantoprazol No 1{table BID Pantoprazo e Sodium 40 e Sodium 40 t} le Sodium MG MG 40 MG levETIRAcet levETIRAcet No levETIRAce am 500 MG am 500 MG [place]ike 500 MG Keppra 500 Keppra 500 No 1{table BID Keppra 500 MG MG t} MG Nifedipine Nifedipine No 1{table BID Nifedipine ER 30 mg ER 30 mg t} ER 30 mg Meclizine Meclizine No 2{table Meclizine HCl 12.5 MG HCl 12.5 MG ts_as_n HCl 12.5 eeded} MG Ezetimibe Ezetimibe No Ezetimibe 10 MG 10 MG 10 MG Metoprolol Metoprolol No 1{table QD Metoprolol Succinate Succinate t} Succinate ER 25 MG ER 25 MG ER 25 MG NIFEdipine NIFEdipine No 1{table BID NIFEdipine ER 60 MG ER 60 MG t_on_an ER 60 MG _empty_ stomach } Atorvastati Atorvastati No 1{table QD Atorvastat n Calcium n Calcium t} in Calcium 40 MG 40 MG 40 MG Zofran Zofran No Zofran Pantoprazol Pantoprazol No 1{table BID Pantoprazo e Sodium 40 e Sodium 40 t} le Sodium MG MG 40 MG Azithromyci Azithromyci No QD Azithromyc n 250 MG n 250 MG in 250 MG Rosuvastati Rosuvastati No Rosuvastat n Calcium n Calcium in Calcium 40 MG 40 MG 40 MG Benzonatate Benzonatate No 1{capsu TID Benzonatat 200 MG 200 MG le} e 200 MG Eliquis 5 Eliquis 5 No 1{table BID Eliquis 5 MG MG t} MG Vitamin D Vitamin D No Vitamin D Keppra 500 Keppra 500 No 2{table BID Keppra 500 MG MG ts} MG amLODIPine amLODIPine No amLODIPine Besylate 5 Besylate 5 Besylate 5 MG MG MG Super B Super B No Super B Complex Complex Complex Melatonin 3 Melatonin 3 No 1{table Melatonin MG MG t_at_be 3 MG dtime_a s_neede d} Citalopram Citalopram No Citalopram Hydrobromid Hydrobromid Hydrobromi e 40 MG e 40 MG de 40 MG Clopidogrel Clopidogrel No Clopidogre Bisulfate Bisulfate l 75 MG 75 MG Bisulfate 75 MG Meclizine Meclizine No 2{table Meclizine HCl 12.5 MG HCl 12.5 MG ts_as_n HCl 12.5 eeded} MG Atorvastati Atorvastati No 1{table QD Atorvastat n Calcium n Calcium t} in Calcium 40 MG 40 MG 40 MG Zofran Zofran No Zofran Nifedipine Nifedipine No 1{table BID Nifedipine ER 30 mg ER 30 mg t} ER 30 mg Ezetimibe Ezetimibe No Ezetimibe 10 MG 10 MG 10 MG Metoprolol Metoprolol No 1{table QD Metoprolol Succinate Succinate t} Succinate ER 25 MG ER 25 MG ER 25 MG triamcinolo triamcinolo No triamcinol [facility] ne ne one [facility] acetonide acetonide acetonide U[facility] 0.1 % 0.1 % 0.1 % topical topical topical cream APPLY cream APPLY cream CREAM CREAM APPLY EXTERNALLY EXTERNALLY CREAM TWICE DAILY TWICE DAILY EXTERNALLY TO RASH ON TO RASH ON TWICE CHEST TWICE CHEST TWICE DAILY TO A DAY FOR 2 A DAY FOR 2 RASH ON WEEKS MONTH WEEKS MONTH CHEST TWICE A DAY FOR 2 WEEKS MONTH urea 40% urea 40% No urea 40% [facility] fluconazole fluconazole fluconazol [facility] 1% Apply to 1% Apply to e 1% Apply Urology the the to the affected affected affected area twice area twice area twice daily as daily as daily as directed directed directed amlodipine amlodipine No amlodipine [place] 10 mg 10 mg 10 mg [facility] tablet TK 1 tablet TK 1 tablet TK Urology T PO 2 T PO 2 1 T PO 2 TIMES A DAY TIMES A DAY TIMES A DAY amlodipine amlodipine No amlodipine [place] 5 mg tablet 5 mg tablet 5 mg M etro TAKE 1 TAKE 1 tablet Urology TABLET BY TABLET BY TAKE 1 MOUTH TWICE MOUTH TWICE TABLET BY DAILY DAILY MOUTH TWICE DAILY atorvastati atorvastati No atorvastat [place] n 40 mg n 40 mg in 40 mg [facility] tablet TAKE tablet TAKE tablet Urology 1 TABLET BY 1 TABLET BY TAKE 1 MOUTH DAILY MOUTH DAILY TABLET BY MOUTH DAILY bicalutamid bicalutamid No bicalutami [place] e 50 mg e 50 mg de 50 mg [facility] tablet TAKE tablet TAKE tablet Urology 1 TABLET BY 1 TABLET BY TAKE 1 MOUTH 2 MOUTH 2 TABLET BY TIMES A DAY TIMES A DAY MOUTH 2 GENERIC GENERIC TIMES A EQUIVALENT EQUIVALENT DAY FOR CASODEX FOR CASODEX GENERIC EQUIVALENT FOR CASODEX bupropion bupropion No bupropion [facility] HCl XL 150 HCl XL 150 HCl XL 150 [facility] mg 24 hr mg 24 hr mg 24 hr Uro logy tablet, tablet, tablet, extended extended extended release TK release TK release TK 2 TS PO QD 2 TS PO QD 2 TS PO QD citalopram citalopram No citalopram [place] 40 mg 40 mg 40 mg [facility] tablet TAKE tablet TAKE tablet Urology 1 TABLET BY 1 TABLET BY TAKE 1 MOUTH DAILY MOUTH DAILY TABLET BY MOUTH DAILY clopidogrel clopidogrel No clopidogre [place] 75 mg 75 mg l 75 mg [facility] tablet TAKE tablet TAKE tablet Urology 1 TABLET BY 1 TABLET BY TAKE 1 MOUTH MOUTH TABLET BY DAILY. DAILY. MOUTH GENERIC GENERIC DAILY. EQUIVALENT EQUIVALENT GENERIC FOR PLAVIX. FOR PLAVIX. EQUIVALENT FOR PLAVIX. ezetimibe ezetimibe No ezetimibe [place] 10 mg 10 mg 10 mg [facility] tablet TAKE tablet TAKE tablet Urology 1 TABLET BY 1 TABLET BY TAKE 1 MOUTH DAILY MOUTH DAILY TABLET BY GENERIC GENERIC MOUTH EQUIVALENT EQUIVALENT DAILY FOR ZETIA FOR ZETIA GENERIC EQUIVALENT FOR ZETIA levofloxaci levofloxaci No levofloxac [place] n 750 mg n 750 mg in 750 mg Me tro tablet tablet tablet Urology losartan losartan No losartan [facility] 100 mg 100 mg 100 mg [facility] tablet TAKE tablet TAKE tablet Urology 1 TABLET BY 1 TABLET BY TAKE 1 MOUTH DAILY MOUTH DAILY TABLET BY MOUTH DAILY meclizine meclizine No meclizine [place] 12.5 mg 12.5 mg 12.5 mg [facility] tablet TAKE tablet TAKE tablet Urology 1 TABLET BY 1 TABLET BY TAKE 1 MOUTH THREE MOUTH THREE TABLET BY TIMES DAILY TIMES DAILY MOUTH NEEDED NEEDED THREE TIMES DAILY NEEDED meloxicam meloxicam No meloxicam [place]itzer 15 mg 15 mg 15 mg [facility] tablet TK 1 tablet TK 1 tablet TK Urology T PO ONCE A T PO ONCE A 1 T PO DAY DAY ONCE A DAY methylpredn methylpredn No methylpred [facility] isolone 4 isolone 4 nisolone 4 [facility] mg tablets mg tablets mg tablets Urology in a dose in a dose in a dose pack FOLLOW pack FOLLOW pack PACKAGE PACKAGE FOLLOW DIRECTIONS DIRECTIONS PACKAGE DIRECTIONS metoprolol metoprolol No metoprolol [facility] succinate succinate succinate [facility] ER 100 mg ER 100 mg ER 100 mg [facility] tablet,exte tablet,exte tablet,ext nded nded ended release 24 release 24 release 24 hr TAKE 1 hr TAKE 1 hr TAKE 1 TABLET BY TABLET BY TABLET BY MOUTH DAILY MOUTH DAILY MOUTH GENERIC GENERIC DAILY EQUIVALENT EQUIVALENT GENERIC FOR TOPROL FOR TOPROL EQUIVALENT XL XL FOR TOPROL XL metoprolol metoprolol No metoprolol [facility] succinate succinate succinate [facility] ER 50 mg ER 50 mg ER 50 mg Uro logy tablet,exte tablet,exte tablet,ext nded nded ended release 24 release 24 release 24 hr TAKE 1 hr TAKE 1 hr TAKE 1 TABLET BY TABLET BY TABLET BY MOUTH DAILY MOUTH DAILY MOUTH DAILY rosuvastati rosuvastati No rosuvastat [place] n 40 mg n 40 mg in 40 mg [facility] tablet TAKE tablet TAKE tablet Urology 1 TABLET BY 1 TABLET BY TAKE 1 MOUTH DAILY MOUTH DAILY TABLET BY . GENERIC . GENERIC MOUTH EQUIVALENT EQUIVALENT DAILY . FOR CRESTOR FOR CRESTOR GENERIC EQUIVALENT FOR CRESTOR urea 40% urea 40% No urea 40% [place] [facility] fluconazole fluconazole fluconazol [facility] 1% Apply to 1% Apply to e 1% Apply Urology the the to the affected affected affected area twice area twice area twice daily as daily as daily as directed directed directed amlodipine amlodipine No amlodipine [place] 10 mg 10 mg 10 mg [facility] tablet TK 1 tablet TK 1 tablet TK Urology T PO 2 T PO 2 1 T PO 2 TIMES A DAY TIMES A DAY TIMES A DAY amlodipine amlodipine No amlodipine [place] 5 mg tablet 5 mg tablet 5 mg M etro TAKE 1 TAKE 1 tablet Urology TABLET BY TABLET BY TAKE 1 MOUTH TWICE MOUTH TWICE TABLET BY DAILY DAILY MOUTH TWICE DAILY atorvastati atorvastati No atorvastat [place] n 40 mg n 40 mg in 40 mg [facility] tablet TAKE tablet TAKE tablet Urology 1 TABLET BY 1 TABLET BY TAKE 1 MOUTH DAILY MOUTH DAILY TABLET BY MOUTH DAILY bicalutamid bicalutamid No bicalutami [facility] e 50 mg e 50 mg de 50 mg [facility] tablet TAKE tablet TAKE tablet Urology 1 TABLET BY 1 TABLET BY TAKE 1 MOUTH 2 MOUTH 2 TABLET BY TIMES A DAY TIMES A DAY MOUTH 2 GENERIC GENERIC TIMES A EQUIVALENT EQUIVALENT DAY FOR CASODEX FOR CASODEX GENERIC EQUIVALENT FOR CASODEX bupropion bupropion No bupropion [facility] HCl XL 150 HCl XL 150 HCl XL 150 [facility] mg 24 hr mg 24 hr mg 24 hr Uro logy tablet, tablet, tablet, extended extended extended release TK release TK release TK 2 TS PO QD 2 TS PO QD 2 TS PO QD ceftriaxone ceftriaxone No 1g ceftriaxon [facility] 1 gram 1 gram e 1 gram [facility] solution solution solution Uro logy for for for injection injection injection Take 1 g by Take 1 g by Take 1 g injection injection by route. route. injection route. cephalexin cephalexin No cephalexin Switzer 500 mg 500 mg 500 mg [facility] capsule capsule capsule Urolog y TAKE 1 TAKE 1 TAKE 1 CAPSULE BY CAPSULE BY CAPSULE BY MOUTH EVERY MOUTH EVERY MOUTH 8 HOURS FOR 8 HOURS FOR EVERY 8 1 DAY 1 DAY HOURS FOR 1 DAY ciprofloxac ciprofloxac No ciprofloxa Switzer in 500 mg in 500 mg mayte 500 mg [facility] tablet TAKE tablet TAKE tablet Urology 1 TABLET BY 1 TABLET BY TAKE 1 MOUTH TWICE MOUTH TWICE TABLET BY DAILY FOR 5 DAILY FOR 5 MOUTH DAYS DAYS TWICE DAILY FOR 5 DAYS citalopram citalopram No citalopram Switzer 40 mg 40 mg 40 mg Metro tablet TAKE tablet TAKE tablet Urology 1 TABLET BY 1 TABLET BY TAKE 1 MOUTH DAILY MOUTH DAILY TABLET BY MOUTH DAILY clopidogrel clopidogrel No clopidogre Switzer 75 mg 75 mg l 75 mg [facility] tablet TAKE tablet TAKE tablet Urology 1 TABLET BY 1 TABLET BY TAKE 1 MOUTH MOUTH TABLET BY DAILY. DAILY. MOUTH GENERIC GENERIC DAILY. EQUIVALENT EQUIVALENT GENERIC FOR PLAVIX. FOR PLAVIX. EQUIVALENT FOR PLAVIX. ezetimibe ezetimibe No ezetimibe Switzer 10 mg 10 mg 10 mg [facility] tablet TAKE tablet TAKE tablet Urology 1 TABLET BY 1 TABLET BY TAKE 1 MOUTH DAILY MOUTH DAILY TABLET BY GENERIC GENERIC MOUTH EQUIVALENT EQUIVALENT DAILY FOR ZETIA FOR ZETIA GENERIC EQUIVALENT FOR ZETIA levofloxaci levofloxaci No levofloxac Switzer n 750 mg n 750 mg in 750 mg Me tro tablet tablet tablet Urology losartan losartan No losartan Love ston 100 mg 100 mg 100 mg Metro tablet TAKE tablet TAKE tablet Urology 1 TABLET BY 1 TABLET BY TAKE 1 MOUTH DAILY MOUTH DAILY TABLET BY MOUTH DAILY meclizine meclizine No meclizine Switzer 12.5 mg 12.5 mg 12.5 mg [facility] tablet TAKE tablet TAKE tablet Urology 1 TABLET BY 1 TABLET BY TAKE 1 MOUTH THREE MOUTH THREE TABLET BY TIMES DAILY TIMES DAILY MOUTH NEEDED NEEDED THREE TIMES DAILY NEEDED meloxicam meloxicam No meloxicam Switzer 15 mg 15 mg 15 mg Metro tablet TK 1 tablet TK 1 tablet TK Urology T PO ONCE A T PO ONCE A 1 T PO DAY DAY ONCE A DAY methylpredn methylpredn No methylpred Switzer isolone 4 isolone 4 nisolone 4 Metro mg tablets mg tablets mg tablets Urology in a dose in a dose in a dose pack FOLLOW pack FOLLOW pack PACKAGE PACKAGE FOLLOW DIRECTIONS DIRECTIONS PACKAGE DIRECTIONS metoprolol metoprolol No metoprolol Switzer succinate succinate succinate Metro ER 100 mg ER 100 mg ER 100 mg Urology tablet,exte tablet,exte tablet,ext nded nded ended release 24 release 24 release 24 hr TAKE 1 hr TAKE 1 hr TAKE 1 TABLET BY TABLET BY TABLET BY MOUTH DAILY MOUTH DAILY MOUTH GENERIC GENERIC DAILY EQUIVALENT EQUIVALENT GENERIC FOR TOPROL FOR TOPROL EQUIVALENT XL XL FOR TOPROL XL metoprolol metoprolol No metoprolol Switzer succinate succinate succinate Metro ER 50 mg ER 50 mg ER 50 mg Uro logy tablet,exte tablet,exte tablet,ext nded nded ended release 24 release 24 release 24 hr TAKE 1 hr TAKE 1 hr TAKE 1 TABLET BY TABLET BY TABLET BY MOUTH DAILY MOUTH DAILY MOUTH DAILY rosuvastati rosuvastati No rosuvastat Switzer n 40 mg n 40 mg in 40 mg Metro tablet TAKE tablet TAKE tablet Urology 1 TABLET BY 1 TABLET BY TAKE 1 MOUTH DAILY MOUTH DAILY TABLET BY GENERIC GENERIC MOUTH EQUIVALENT EQUIVALENT DAILY FOR CRESTOR FOR CRESTOR GENERIC EQUIVALENT FOR CRESTOR triamcinolo triamcinolo No triamcinol Switzer ne ne one Metro acetonide acetonide acetonide Urology 0.1 % 0.1 % 0.1 % topical topical topical cream APPLY cream APPLY cream CREAM CREAM APPLY EXTERNALLY EXTERNALLY CREAM TWICE DAILY TWICE DAILY EXTERNALLY TO RASH ON TO RASH ON TWICE CHEST TWICE CHEST TWICE DAILY TO A DAY FOR 2 A DAY FOR 2 RASH ON WEEKS MONTH WEEKS MONTH CHEST TWICE A DAY FOR 2 WEEKS MONTH urea 40% urea 40% No urea 40% Love ston fluconazole fluconazole fluconazol Metro 1% Apply to 1% Apply to e 1% Apply Urology the the to the affected affected affected area twice area twice area twice daily as daily as daily as directed directed directed amlodipine amlodipine No amlodipine Switzer 10 mg 10 mg 10 mg [facility] tablet TK 1 tablet TK 1 tablet TK Urology T PO 2 T PO 2 1 T PO 2 TIMES A DAY TIMES A DAY TIMES A DAY amlodipine amlodipine No amlodipine Switzer 5 mg tablet 5 mg tablet 5 mg M etro TAKE 1 TAKE 1 tablet Urology TABLET BY TABLET BY TAKE 1 MOUTH TWICE MOUTH TWICE TABLET BY DAILY DAILY MOUTH TWICE DAILY atorvastati atorvastati No atorvastat Switzer n 40 mg n 40 mg in 40 mg Metro tablet TAKE tablet TAKE tablet Urology 1 TABLET BY 1 TABLET BY TAKE 1 MOUTH DAILY MOUTH DAILY TABLET BY MOUTH DAILY bicalutamid bicalutamid No bicalutami Switzer e 50 mg e 50 mg de 50 mg Metro tablet TAKE tablet TAKE tablet Urology 1 TABLET BY 1 TABLET BY TAKE 1 MOUTH 2 MOUTH 2 TABLET BY TIMES A DAY TIMES A DAY MOUTH 2 GENERIC GENERIC TIMES A EQUIVALENT EQUIVALENT DAY FOR CASODEX FOR CASODEX GENERIC EQUIVALENT FOR CASODEX bupropion bupropion No bupropion Switzer HCl XL 150 HCl XL 150 HCl XL 150 Metro mg 24 hr mg 24 hr mg 24 hr Uro logy tablet, tablet, tablet, extended extended extended release TK release TK release TK 2 TS PO QD 2 TS PO QD 2 TS PO QD ceftriaxone ceftriaxone No 1g ceftriaxon Switzer 1 gram 1 gram e 1 gram Metro solution solution solution Uro logy for for for injection injection injection Take 1 g by Take 1 g by Take 1 g injection injection by route. route. injection route. cephalexin cephalexin No cephalexin Switzer 500 mg 500 mg 500 mg Metro capsule capsule capsule Urolog y TAKE 1 TAKE 1 TAKE 1 CAPSULE BY CAPSULE BY CAPSULE BY MOUTH EVERY MOUTH EVERY MOUTH 8 HOURS FOR 8 HOURS FOR EVERY 8 1 DAY 1 DAY HOURS FOR 1 DAY ciprofloxac ciprofloxac No ciprofloxa Switzer in 500 mg in 500 mg mayte 500 mg Metro tablet TAKE tablet TAKE tablet Urology 1 TABLET BY 1 TABLET BY TAKE 1 MOUTH TWICE MOUTH TWICE TABLET BY DAILY FOR 5 DAILY FOR 5 MOUTH DAYS DAYS TWICE DAILY FOR 5 DAYS citalopram citalopram No citalopram Switzer 40 mg 40 mg 40 mg Metro tablet TAKE tablet TAKE tablet Urology 1 TABLET BY 1 TABLET BY TAKE 1 MOUTH DAILY MOUTH DAILY TABLET BY MOUTH DAILY clopidogrel clopidogrel No clopidogre Switzer 75 mg 75 mg l 75 mg Metro tablet TAKE tablet TAKE tablet Urology 1 TABLET BY 1 TABLET BY TAKE 1 MOUTH MOUTH TABLET BY DAILY. DAILY. MOUTH GENERIC GENERIC DAILY. EQUIVALENT EQUIVALENT GENERIC FOR PLAVIX. FOR PLAVIX. EQUIVALENT FOR PLAVIX. ezetimibe ezetimibe No ezetimibe Switzer 10 mg 10 mg 10 mg [facility] tablet TAKE tablet TAKE tablet Urology 1 TABLET BY 1 TABLET BY TAKE 1 MOUTH DAILY MOUTH DAILY TABLET BY GENERIC GENERIC MOUTH EQUIVALENT EQUIVALENT DAILY FOR ZETIA FOR ZETIA GENERIC EQUIVALENT FOR ZETIA levofloxaci levofloxaci No levofloxac Switzer n 750 mg n 750 mg in 750 mg Me tro tablet tablet tablet Urology losartan losartan No losartan Love ston 100 mg 100 mg 100 mg Metro tablet TAKE tablet TAKE tablet Urology 1 TABLET BY 1 TABLET BY TAKE 1 MOUTH DAILY MOUTH DAILY TABLET BY MOUTH DAILY meclizine meclizine No meclizine Switzer 12.5 mg 12.5 mg 12.5 mg [facility] tablet TAKE tablet TAKE tablet Urology 1 TABLET BY 1 TABLET BY TAKE 1 MOUTH THREE MOUTH THREE TABLET BY TIMES DAILY TIMES DAILY MOUTH NEEDED NEEDED THREE TIMES DAILY NEEDED meloxicam meloxicam No meloxicam Switzer 15 mg 15 mg 15 mg Metro tablet TK 1 tablet TK 1 tablet TK Urology T PO ONCE A T PO ONCE A 1 T PO DAY DAY ONCE A DAY methylpredn methylpredn No methylpred Switzer isolone 4 isolone 4 nisolone 4 Metro mg tablets mg tablets mg tablets Urology in a dose in a dose in a dose pack FOLLOW pack FOLLOW pack PACKAGE PACKAGE FOLLOW DIRECTIONS DIRECTIONS PACKAGE DIRECTIONS metoprolol metoprolol No metoprolol Switzer succinate succinate succinate Metro ER 100 mg ER 100 mg ER 100 mg Urology tablet,exte tablet,exte tablet,ext nded nded ended release 24 release 24 release 24 hr TAKE 1 hr TAKE 1 hr TAKE 1 TABLET BY TABLET BY TABLET BY MOUTH DAILY MOUTH DAILY MOUTH GENERIC GENERIC DAILY EQUIVALENT EQUIVALENT GENERIC FOR TOPROL FOR TOPROL EQUIVALENT XL XL FOR TOPROL XL metoprolol metoprolol No metoprolol Switzer succinate succinate succinate Metro ER 50 mg ER 50 mg ER 50 mg Uro logy tablet,exte tablet,exte tablet,ext nded nded ended release 24 release 24 release 24 hr TAKE 1 hr TAKE 1 hr TAKE 1 TABLET BY TABLET BY TABLET BY MOUTH DAILY MOUTH DAILY MOUTH DAILY rosuvastati rosuvastati No rosuvastat Wilkins n 40 mg n 40 mg in 40 mg Metro tablet TAKE tablet TAKE tablet Urology 1 TABLET BY 1 TABLET BY TAKE 1 MOUTH DAILY MOUTH DAILY TABLET BY GENERIC GENERIC MOUTH EQUIVALENT EQUIVALENT DAILY FOR CRESTOR FOR CRESTOR GENERIC EQUIVALENT FOR CRESTOR Meclizine Meclizine No 2{table Meclizine HCl 12.5 MG HCl 12.5 MG ts_as_n HCl 12.5 eeded} MG Nifedipine Nifedipine No 1{table BID Nifedipine ER 30 mg ER 30 mg t} ER 30 mg Ezetimibe Ezetimibe No Ezetimibe 10 MG 10 MG 10 MG Keppra 500 Keppra 500 No 1{table BID Keppra 500 MG MG t} MG Eliquis 5 Eliquis 5 No 1{table BID Eliquis 5 MG MG t} MG Citalopram Citalopram No Citalopram Hydrobromid Hydrobromid Hydrobromi e 40 MG e 40 MG de 40 MG Melatonin 3 Melatonin 3 No 1{table Melatonin MG MG t_at_be 3 MG dtime_a s_neede d} Atorvastati Atorvastati No 1{table QD Atorvastat n Calcium n Calcium t} in Calcium 40 MG 40 MG 40 MG Vitamin D Vitamin D No Vitamin D Metoprolol Metoprolol No 1{table QD Metoprolol Succinate Succinate t} Succinate ER 25 MG ER 25 MG ER 25 MG Pantoprazol Pantoprazol No 1{table BID Pantoprazo e Sodium 40 e Sodium 40 t} le Sodium MG MG 40 MG Citalopram Citalopram No Citalopram Hydrobromid Hydrobromid Hydrobromi e 40 MG e 40 MG de 40 MG Zofran Zofran No Zofran Clopidogrel Clopidogrel No Clopidogre Bisulfate Bisulfate l 75 MG 75 MG Bisulfate 75 MG Vitamin D Vitamin D No Vitamin D Metoprolol Metoprolol No Metoprolol Succinate Succinate Succinate ER 50 MG ER 50 MG ER 50 MG Losartan Losartan No Losartan Potassium Potassium Potassium 100 MG 100 MG 100 MG Super B Super B No Super B Complex Complex Complex Rosuvastati Rosuvastati No Rosuvastat n Calcium n Calcium in Calcium 40 MG 40 MG 40 MG amLODIPine amLODIPine No amLODIPine Besylate 5 Besylate 5 Besylate 5 MG MG MG Citalopram Citalopram No Citalopram Hydrobromid Hydrobromid Hydrobromi e 40 MG e 40 MG de 40 MG Bicalutamid Bicalutamid No Bicalutami e 50 MG e 50 MG de 50 MG Ezetimibe Ezetimibe No Ezetimibe 10 MG 10 MG 10 MG Clopidogrel Clopidogrel No Clopidogre Bisulfate Bisulfate l 75 MG 75 MG Bisulfate 75 MG Vitamin D Vitamin D No Vitamin D Metoprolol Metoprolol No Metoprolol Succinate Succinate Succinate ER 50 MG ER 50 MG ER 50 MG Losartan Losartan No Losartan Potassium Potassium Potassium 100 MG 100 MG 100 MG Super B Super B No Super B Complex Complex Complex Rosuvastati Rosuvastati No Rosuvastat n Calcium n Calcium in Calcium 40 MG 40 MG 40 MG amLODIPine amLODIPine No amLODIPine Besylate 5 Besylate 5 Besylate 5 MG MG MG Citalopram Citalopram No Citalopram Hydrobromid Hydrobromid Hydrobromi e 40 MG e 40 MG de 40 MG Bicalutamid Bicalutamid No Bicalutami e 50 MG e 50 MG de 50 MG Ezetimibe Ezetimibe No Ezetimibe 10 MG 10 MG 10 MG Rosuvastati Rosuvastati No Rosuvastat n Calcium n Calcium in Calcium 40 MG 40 MG 40 MG Citalopram Citalopram No Citalopram Hydrobromid Hydrobromid Hydrobromi e 40 MG e 40 MG de 40 MG Clopidogrel Clopidogrel No Clopidogre Bisulfate Bisulfate l 75 MG 75 MG Bisulfate 75 MG Ezetimibe Ezetimibe No Ezetimibe 10 MG 10 MG 10 MG amLODIPine amLODIPine No amLODIPine Besylate 5 Besylate 5 Besylate 5 MG MG MG Pantoprazol Pantoprazol No 1{table BID Pantoprazo e Sodium 40 e Sodium 40 t} le Sodium MG MG 40 MG Vitamin D Vitamin D No Vitamin D Metoprolol Metoprolol No Metoprolol Succinate Succinate Succinate ER 50 MG ER 50 MG ER 50 MG Bicalutamid Bicalutamid No Bicalutami e 50 MG e 50 MG de 50 MG Losartan Losartan No Losartan Potassium Potassium Potassium 100 MG 100 MG 100 MG Super B Super B No Super B Complex Complex Complex Rosuvastati Rosuvastati No Rosuvastat n Calcium n Calcium in Calcium 40 MG 40 MG 40 MG Vitamin D Vitamin D No Vitamin D Clopidogrel Clopidogrel No Clopidogre Bisulfate Bisulfate l 75 MG 75 MG Bisulfate 75 MG Ezetimibe Ezetimibe No Ezetimibe 10 MG 10 MG 10 MG Pantoprazol Pantoprazol No 1{table BID Pantoprazo e Sodium 40 e Sodium 40 t} le Sodium MG MG 40 MG Citalopram Citalopram No Citalopram Hydrobromid Hydrobromid Hydrobromi e 40 MG e 40 MG de 40 MG Super B Super B No Super B Complex Complex Complex Metoprolol Metoprolol No Metoprolol Succinate Succinate Succinate ER 50 MG ER 50 MG ER 50 MG Bicalutamid Bicalutamid No Bicalutami e 50 MG e 50 MG de 50 MG Losartan Losartan No Losartan Potassium Potassium Potassium 100 MG 100 MG 100 MG amLODIPine amLODIPine No amLODIPine Besylate 5 Besylate 5 Besylate 5 MG MG MG Rosuvastati Rosuvastati No Rosuvastat n Calcium n Calcium in Calcium 40 MG 40 MG 40 MG Vitamin D Vitamin D No Vitamin D Clopidogrel Clopidogrel No Clopidogre Bisulfate Bisulfate l 75 MG 75 MG Bisulfate 75 MG Ezetimibe Ezetimibe No Ezetimibe 10 MG 10 MG 10 MG Pantoprazol Pantoprazol No 1{table BID Pantoprazo e Sodium 40 e Sodium 40 t} le Sodium MG MG 40 MG Citalopram Citalopram No Citalopram Hydrobromid Hydrobromid Hydrobromi e 40 MG e 40 MG de 40 MG Super B Super B No Super B Complex Complex Complex Metoprolol Metoprolol No Metoprolol Succinate Succinate Succinate ER 50 MG ER 50 MG ER 50 MG Bicalutamid Bicalutamid No Bicalutami e 50 MG e 50 MG de 50 MG Losartan Losartan No Losartan Potassium Potassium Potassium 100 MG 100 MG 100 MG amLODIPine amLODIPine No amLODIPine Besylate 5 Besylate 5 Besylate 5 MG MG MG Rosuvastati Rosuvastati No Rosuvastat n Calcium n Calcium in Calcium 40 MG 40 MG 40 MG Vitamin D Vitamin D No Vitamin D Clopidogrel Clopidogrel No Clopidogre Bisulfate Bisulfate l 75 MG 75 MG Bisulfate 75 MG Immunizations Ordered Immunization Filled Immunization Date Status Commen ts Source Name Name FLUCELVAX QUAD PF 2021-04-[address] [facility]00 [facility] FLUCELVAX QUAD PF 2021-04-[address] [facility]00 [facility] FLUCELVAX QUAD PF 2021-04-[address] [facility] [facility] ESTEFANIAConcepcion 2021-01-14 Completed [facility] VACCINATION 00:00:[address] [facility] ESTEFANIAConcepcion 2021-01-14 Completed [facility]ACCINATION 00:00:[address] [facility] ESTEFANIAConcepcion 2021-01-14 Completed [facility] [facility] 00:00:[address] [facility] 00:00:[address] [facility]15 [facility] 00:00:[address] [facility] 2020-05-18 Com[facility] 00:00:[address] [facility] 2020-05-18 Com[facility] 00:00:[address] [facility] 2020-[facility]18 Com[facility] VACC[facility] 00:00:00 [facility] FLUCELVAX QUAD PF 2020-02-[address] 00:00:00 [facility] FLUZONE HIGH-DOSE PF 2020-02-13 Completed [facility] 00:00:00 [facility] FLUCELVAX QUAD PF 2020-02-[address] [facility]:00 [facility] FLUZONE HIGH-DOSE PF 2020-02-13 Completed [facility]00 [facility] FLUCELVAX QUAD PF 2020-02-[address] [facility] FLUZONE HIGH-DOSE PF 2020-02-13 Completed [facility] 00:00:00 [facility] Prevnar 13 (PCV13) Prevnar 13 (PCV13) 2019-03-05 Completed [facility] 09:[facility]:00 [facility] Prevnar 13 (PCV13) Prevnar 13 (PCV13) 2019-03-05 Completed [facility] - 09:56:00 [facility] Prevnar 13 (PCV13) Prevnar 13 (PCV13) 2019-03-05 Completed [facility] - 09:56:00 [facility] Prevnar 13 (PCV13) Prevnar 13 (PCV13) 2019-03-05 Completed [facility] - 09:56:00 [facility] Prevnar 13 (PCV13) Prevnar 13 (PCV13) 2019-03-05 Completed [facility] - 09:56:00 [facility] Prevnar 13 (PCV13) Prevnar 13 (PCV13) 2019-03-05 Completed [facility] - 09:56:00 [facility] Prevnar 13 (PCV13) Prevnar 13 (PCV13) 2019-03-05 Completed [facility] - 09:56:00 [facility] Prevnar 13 (PCV13) Prevnar 13 (PCV13) 2019-03-05 Completed [facility] - 09:56:00 [facility] Prevnar 13 (PCV13) Prevnar 13 (PCV13) 2019-03-05 Completed [facility] - 09:56:00 [facility] Prevnar 13 (PCV13) Prevnar 13 (PCV13) 2019-03-05 Completed [facility] - 09:56:00 [facility] Prevnar 13 (PCV13) Prevnar 13 (PCV13) 2019-03-05 Completed [facility] - 09:56:00 [facility] Prevnar 13 (PCV13) Prevnar 13 (PCV13) 2019-03-05 Completed [facility] - 09:56:00 [facility] Prevnar 13 (PCV13) Prevnar 13 (PCV13) 2019-03-05 Completed [facility] - 09:56:00 [facility] Prevnar 13 (PCV13) Prevnar 13 (PCV13) 2019-03-05 Completed [facility] - 09:56:00 [facility] Prevnar 13 (PCV13) Prevnar 13 (PCV13) 2019-03-05 Completed [facility] - 09:56:00 [facility] Prevnar 13 (PCV13) Prevnar 13 (PCV13) 2019-03-05 Completed [facility] - 09:56:00 [facility] Prevnar 13 (PCV13) Prevnar 13 (PCV13) 2019-03-05 Completed [facility] - 09:56:00 [facility] Prevnar 13 (PCV13) Prevnar 13 (PCV13) 2019-03-05 Completed [facility] - 09:56:00 [facility] Prevnar 13 (PCV13) Prevnar 13 (PCV13) 2019-03-05 Completed [facility] - 09:56:00 [facility] Prevnar 13 (PCV13) Prevnar 13 (PCV13) 2019-03-05 Completed [facility] - 09:56:00 [facility] Prevnar 13 (PCV13) Prevnar 13 (PCV13) 2019-03-05 Completed [facility] - 09:56:00 [facility] Prevnar 13 (PCV13) Prevnar 13 (PCV13) 2019-03-05 Completed [facility] - 09:56:00 [facility] FLUZOJOHN QUAD 2019-03-05 Completed [facility] 00:[facility]:00 [facility] Pneumococcal 2019-03-05 Completed [facility] Conjug[facility]:00[facility] MADELINENY QUAD 2019-03-05 Completed [facility] 00:00:00 [facility] Pneumococcal 2019-03-05 Completed [facility] 00:00:00 [facility] Pneumococcal 2019-03-05 Completed [facility] Conjugate 13-[facility] 00:00:00 [facility] Vital Signs Vital Name Observation Time Observation Value Comments Source height 2022-06-16 08:00:00 72 [in_i] [facility] weight 2022-06-16 08:00:00 170 [lb_av] [facility] temperature 2022-06-16 08:00:00 96.5 [degF] [facility] bmi 2022-06-16 08:00:00 23.05 kg/m2 [facility] blood pressure 2022-06-16 08:00:00 138 mm[Hg] [facility] systolic [facility] blood pressure 2022-06-16 08:00:00 76 mm[Hg] [facility] - diastolic [facility] height 2022-05-18 09:40:00 72 [in_i] [facility] weight 2022-05-18 09:40:00 170.5 [lb_av] [facility] temperature 2022-05-18 09:40:00 97.8 [degF] [facility] bmi 2022-05-18 09:40:00 23.12 kg/m2 [facility] oximetry 2022-05-18 09:40:00 97 % [facility] respiratory rate 2022-05-18 09:40:00 17 /min Comm on [facility] blood pressure 2022-05-18 09:40:00 137 mm[Hg] Common [facility] - systolic [facility] blood pressure 2022-05-18 09:40:00 65 mm[Hg] Common [facility] - diastolic [facility] height 2022-02-13 08:10:00 72 [in_i] Common [facility] weight 2022-02-13 08:10:00 160 [lb_av] [facility] temperature 2022-02-13 08:10:00 98.2 [degF] [facility] bmi 2022-02-13 08:10:00 21.7 kg/m2 [facility] S pirit [facility] blood pressure 2022-02-13 08:10:00 136 mm[Hg] [facility] systolic [facility] blood pressure 2022-02-13 08:10:00 72 mm[Hg] Common [facility] - diastolic [facility] height 2022-01-06 13:20:00 72 [in_i] [facility] weight 2022-01-06 13:20:00 158 [lb_av] [facility] temperature 2022-01-06 13:20:00 97.2 [degF] [facility] bmi 2022-01-06 13:20:00 21.43 kg/m2 [facility] height 2021-12-13 10:10:00 72 [in_i] [facility] weight 2021-12-13 10:10:00 158.3 [lb_av] [facility] temperature 2021-12-13 10:10:00 97.9 [degF] [facility] bmi 2021-12-13 10:10:00 21.47 kg/m2 [facility] oximetry 2021-12-13 10:10:00 97 % [facility] 2021-12-13 10:10:00 18 /min Comm on [facility] blood pressure 2021-12-13 10:10:00 139 mm[Hg] Common [facility] - systolic [facility] blood pressure 2021-12-13 10:10:00 74 mm[Hg] Common [facility] - diastolic [facility] height 2021-12-13 10:10:00 72 [in_i] Common [facility] weight 2021-12-13 10:10:00 158.3 [lb_av] [facility] temperature 2021-12-13 10:10:00 97.9 [degF] Common [facility] bmi 2021-12-13 10:10:00 21.47 kg/m2 Common [facility] oximetry 2021-12-13 10:10:00 97 % [facility] respiratory rate 2021-12-13 10:10:00 18 /min Comm on [facility] blood pressure 2021-12-13 10:10:00 139 mm[Hg] Common [facility] - systolic [facility] blood pressure 2021-12-13 10:10:00 74 mm[Hg] Common [facility] - diastolic [facility] height 2021-09-12 13:20:00 72 [in_i] Common [facility] weight 2021-09-12 13:20:00 158.3 [lb_av] Common [facility] temperature 2021-09-12 13:20:00 97.3 [degF] Common [facility] bmi 2021-09-12 13:20:00 21.47 kg/m2 Common [facility] oximetry 2021-09-12 13:20:00 98 % Common [facility] respiratory rate 2021-09-12 13:20:00 17 /min Comm on [facility] blood pressure 2021-09-12 13:20:00 136 mm[Hg] Common [facility] - systolic [facility] blood pressure 2021-09-12 13:20:00 66 mm[Hg] Common [facility] - diastolic [facility] height 2021-04-26 11:00:00 72 [in_i] [facility] weight 2021-04-26 11:00:00 160.6 [lb_av] [facility] temperature 2021-04-26 11:00:00 97.8 [degF] Common [facility] bmi 2021-04-26 11:00:00 21.78 kg/m2 [facility] oximetry 2021-04-26 11:00:00 97 % [facility] respiratory rate 2021-04-26 11:00:00 16 /min Comm on [facility] blood pressure 2021-04-26 11:00:00 137 mm[Hg] Common [facility] - systolic [facility] blood pressure 2021-04-26 11:00:00 65 mm[Hg] Common [facility] - diastolic [facility] BP Diastolic 2020-11-04 00:00:00 73 mm[Hg] [facility] BP Systolic 2020-11-04 00:00:00 139 mm[Hg] [facility] Body Weight 2020-11-04 00:00:00 172.4 [lb_av] [facility] Systolic blood 2022-03-21 15:50:00 162 mm[Hg] [facility] pressure Diastolic blood 2022-03-21 15:50:00 72 mm[Hg] [facility] pressure Heart rate 2022-03-21 15:50:00 54 /min [facility] Body height 2022-03-21 15:50:00 180.3 cm [facility] Body weight 2022-03-21 15:50:00 75.751 kg [facility] BMI 2022-03-21 15:50:00 23.29 kg/m2 [facility] Systolic blood 2021-06-21 14:03:00 124 mm[Hg] [facility] pressure Diastolic blood 2021-06-21 14:03:00 58 [facility]Hg[facility] 2021-06-21 14:03:00 63 /min [facility] Body height 2021-06-21 14:03:00 180.3 cm [facility] Body weight 2021-06-21 14:03:00 72.576 kg [facility] BMI 2021-06-21 14:03:00 22.32 kg/m2 [facility] Systolic blood 2021-06-10 15:02:00 134 mm[Hg] [facility] Diastolic blood 2021-06-10 15:02:00 59 mm[Hg] [facility] Heart rate 2021-06-10 15:02:00 65 /min [facility] Body temperature 2021-06-10 15:02:00 36.39 Clara [facility] Respiratory rate 2021-06-10 15:02:00 16 /min [facility] Oxygen saturation in 2021-06-10 15:02:00 99 /min [facility] Arterial blood by Pulse oximetry Body height 2021-06-10 13:15:00 180.3 cm [facility] Body weight 2021-06-10 13:15:00 72.802 kg [facility] BMI 2021-06-10 13:15:00 22.39 kg/m2 [facility] Procedures Procedure Date / Time Performing Clinician Source Performed US ABDOMINAL AORTA 2021-12-05 12:52:34 Manny Du [facility] MRI HEAD EXTERNAL STUDY 2021-10-17 16:21:00 Andreea, [facility] [place] [place] MRI HEAD EXTERNAL STUDY 2021-10-17 15:57:[address] [facility] [place] [place] MRI HEAD EXTERNAL STUDY 2021-10-14 20:33:00 Andreea [facility] Claudia US VASCULAR EXTERNAL STUDY 2021-10-13 10:04:00 [facility] XR ABD/PELVIC EXTERNAL 2021-10-12 22:27:00 [facility] HEAD EXTERNAL STUDY 2021-10-11 07:17[facility] 2021-10-11 06:11:[address] [facility] [place] [place] US DUPLEX ARTERIAL LOWER 2021-10-04 15:26:[address] [facility] EXTREMITY BILATERAL ECG 12-LEAD 2021-06-21 14:06:38 [facility] 2021-06-10 15:03:00 [facility] RELEASE, CARPAL TUNNEL 2021-06-10 14:14:00 [facility] XR HAND 3+ VW RIGHT 2021-06-02 17:05:26 [facility] [place] INJECT CARPAL TUNNEL 2021-05-19 14:21:52 [facility] EMG 2021-05-17 18:36:56 [facility] WO CONTRAST RIGHT 2021-05-17 17:40:00 Milton Mireles [facility] XR HANDS 3 VW BILATERAL 2021-04-20 20:14:33 [facility] DOUBLE-STRANDED DNA (DSDNA) 2021-04-20 18:25:00 [facility] ANTIBODIES, CRITHIDIA CBC WITH PLATELET AND 2021-04-20 18:25:00 [facility] DIFFERENTIAL COMPREHENSIVE METABOLIC 2021-04-20 18:25:00 [facility] PANEL C-REACTIVE PROTEIN 2021-04-20 18:25:00 Ali, [facility] C4 COMPLEMENT COMPONENT 2021-04-20 18:25:00 Ali, [facility] SEDIMENTATION RATE 2021-04-20 18:25:00 [facility], [facility] URINE PROTEIN/CREATININE 2021-04-20 18:25:00 [facility], [facility] RATIO, RANDOM URINALYSIS, AUTOMATED WITH 2021-04-20 18:25:00 Ali, [facility] MICROSCOPY US CAROTID DUPLEX BILATERAL 2020-12-28 17:38:12 [facility] US ABDOMINAL AORTA 2020-11-29 13:52:35 [facility] DAO IFA, W/REFL TO 2020-10-05 14:46:00 [facility], [facility] TITER/PATTERN/CASCADE RIBONUCLEOPROTEIN ANTIBODY 2020-10-05 14:46:00 [facility], [facility] (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 CBC WITH PLATELET AND 2020-10-05 14:46:00 [facility], [facility] DIFFERENTIAL COMPLEMENT ACTIVITY, TOTAL 2020-10-05 14:46:00 Ali, [facility] COMPREHENSIVE METABOLIC 2020-10-05 14:46:00 Ali, [facility] PANEL C-REACTIVE PROTEIN 2020-10-05 14:46:00 Ali, [facility] CYCLIC CITRULLINATED 2020-10-05 14:46:00 [facility], [facility] PEPTIDE AB, IGG DIRECT ANTIGLOBULIN TEST 2020-10-05 14:46:00 [facility], [facility] DOUBLE-STRANDED DNA (DSDNA) 2020-10-05 14:46:00 [facility], [facility] ANTIBODIES, IMMUNOASSAY LUPUS ANTICOAGULANT PANEL 2020-10-05 14:46:00 Ali, [facility] RHEUMATOID FACTOR 2020-10-05 14:46:00 Ali, [facility] SEDIMENTATION RATE 2020-10-05 14:46:00 [facility] URINE PROTEIN/CREATININE 2020-10-05 14:46:00 [facility] RATIO, RANDOM URINALYSIS, AUTOMATED WITH 2020-10-05 14:46:00 [facility] MICROSCOPY VITAMIN D 25 HYDROXY LEVEL 2020-10-05 14:46:00 [facility] TSH REFLEX TO T4F 2020-10-05 14:46:00 [facility] ANCA SCREEN WITH MPO AND 2020-10-05 14:46:00 [facility] PR3, WITH REFLEX TO ANCA TITER CREATINE KINASE, TOTAL 2020-10-05 14:46:00 [facility] ([facility]) ALDOLASE, SERUM 2020-10-05 14:46:00 [facility], [facility] spital ANTINUCLEAR ANTIBODIES 2020-10-05 14:46:00 [facility] TITER AND PATTERN STAGE 1 2020-10-05 14:46:00 [facility], [facility] spital INTERPRETATION 2020-10-05 14:46:00 [facility], [facility] spital PSA, TOTAL AND FREE 2020-10-04 13:40:00 [facility] MRI BRAIN WO CONTRAST 2020-09-06 16:34:13 [facility] Claud[place] EMG 2020-09-03 15:38:21 Andreea Omaira [facility] ospital Claud[place] CBC WITH PLATELET AND 2020-08-26 19:09:00 [facility] DIFFERENTIAL [place] COMPREHENSIVE METABOLIC 2020-08-26 19:09:00 [facility] PANEL [place] IMMUNOFIXATION, SERUM 2020-08-26 19:09:00 [facility] [place] METHYLMALONIC ACID, SERUM 2020-08-26 19:09:00 [facility] [place] VITAMIN B1 LEVEL 2020-08-26 19:09:00 [facility]12 [facility] 2020-08-26 19:09:00 [facility] [place] VITAMIN E 2020-08-26 19:09:00 [facility] ospital [place] DAO SCREEN W IFA W REFLEX 2020-08-26 19:09:00 [facility] TO TITER [place] Hernia Repair W/mesh 2014-11-05 00:00:00 [facility] Urology Total Replacement of Left 2013-02-05 00:00:[address] [facility] Hip Joint Urology Angiography of Right 2011-11-08 00:00:00 [facility] Carotid Artery Urology Coronary Artery Bypass with 2000-11-07 00:00:00 [facility] Autogenous Graft, Three Urology Grafts Plan of Care Planned Activity Planned Date Details Comments Source Future Scheduled 2022-05-31 SHINGLES VACCINES (1 [facility] Test 11:15:51 of 2) [code = SHINGLES VACCINES (1 of 2)] Future Scheduled 2022-05-31 65+ PNEUMOCOCCAL [facility] Test 11:15:51 VACCINE (2 - PPSV23 if available, else PCV20) [code = 65+ PNEUMOCOCCAL VACCINE (2 - PPSV23 if available, else PCV20)] Future Scheduled 2022-05-31 COVID-19 VACCINE (4 - Me [facility] Test 11:15:51 Booster for Moderna series) [code = COVID-19 VACCINE (4 - Booster for Moderna series)] Future Scheduled 2021-06-22 SHINGLES VACCINES (#1) [facility] Test 19:34:39 [code = SHINGLES VACCINES (#1)] Future Scheduled 2021-06-22 65+ PNEUMOCOCCAL [facility] Test 19:34:39 VACCINE (2 of 4 - PPSV23) [code = 65+ PNEUMOCOCCAL VACCINE (2 of 4 - PPSV23)] Future Scheduled 2021-06-13 SHINGLES VACCINES (#1) [facility] Test 22:18:48 [code = SHINGLES VACCINES (#1)] Future Scheduled 2021-06-13 65+ PNEUMOCOCCAL [facility] Test 22:18:48 VACCINE (2 of 4 - PPSV23) [code = 65+ PNEUMOCOCCAL VACCINE (2 of 4 - PPSV23)] Future Scheduled [U] XR [facility] [place] Test (HEEL) 2 VWS, MIN. RIGHT 40273 12/12/2012 Routine[U] XRAY PELVIS MIN 3 VWS 39042 12/12/2012 Routine [code = [U] XR CALCANEUS (HEEL) 2 VWS, MIN. RIGHT 19391 12/12/2012 Routine[U] XRAY PELVIS MIN 3 VWS 65208 12/12/2012 Routine] Future Scheduled [U] XR CALCANEUS [facility] [place] Test (HEEL) 2 VWS, MIN. RIGHT 08690 12/12/2012 Routine[U] XRAY PELVIS MIN 3 VWS 64343 12/12/2012 Routine [code = [U] XR CALCANEUS (HEEL) 2 VWS, MIN. RIGHT 74586 12/12/2012 Routine[U] XRAY PELVIS MIN 3 VWS 30120 12/12/2012 Routine] Encounters Start End Encounter Admission Attending Care Care Encounter Source Date/Time Date/Time Type Type Clinicians Facility Department ID 2022-06-14 Outpatient Denis, STNESHALC [facility] [id number] Common 14:37:02 [facility] [address] [facility] 2022-06-13 Outpatient [facility] [id number] [place] 10:07:04 [id number] [facility] 2022-06-12 Outpatient [facility] [id number] [place] 18:45:09 [id number] [facility] 2022-05-30 Outpatient DenisAJ upLC [facility] [id number] Common 16:24:00 [facility] [address] [facility] 2022-04-12 Outpatient [facility] [id number] [place] 10:37:03 [id number] [facility] 2022-04-10 Outpatient [facility] [id number] [place] 13:49:29 [id number] [facility] 2022-03-07 Outpatient [facility] [id number] [place] 07:42:10 [id number] [facility] 2022-02-14 Outpatient [facility] [id number] [place] 14:11:14 [id number] [facility] 2022-02-08 Outpatient [facility] [id number] [place] 10:16:30 [id number] [facility] 2022-01-25 Outpatient [facility] [id number] [place] 16:18:40 [id number] [facility] 2022-01-10 Outpatient [facility] [id number] [place] 15:09:57 [id number] [facility] 2022-01-06 Outpatient Denis, STNESHALC STLMLC [id number] Common 10:30:01 [facility] 2022-01-05 Outpatient [facility] [id number] [place] 10:12:22 [id number] [facility] 2022-01-04 Outpatient [facility] [id number] [place] 10:15:18 [id number] [facility] 2021-12-27 Outpatient [facility] [id number] [place] 12:14:55 [id number] [facility] 2021-12-15 Outpatient [facility] [id number] [place] 08:57:30 [id number] [facility] 2021-12-07 Outpatient [facility] [id number] [place] 21:54:01 [id number] [facility] 2021-11-23 Outpatient SHIRLEY, [facility] [id number] [place] 08:13:57 FREYA [id number] [facility] 2021-11-19 Outpatient [facility] [id number] [place] 13:41:50 [id number] [facility] 2021-11-18 Outpatient Denis, [facility] [id number] Common 10:40:01 [facility] 2021-11-18 Outpatient OKPALA, [facility] [id number] [place] 03:06:25 MUNACHI [id number] [facility] 2021-11-17 Outpatient OKPALA, [facility] [id number] [place] 09:02:40 MUNACHI [id number] [facility] 2021-10-14 Outpatient 3 Elvialimary kay, ENCPL [place] [id number] [facility] 08:18:57 Domenico [facility] [place] 2021-06-08 Outpatient Denis, STLMLC STLMLC [id number] Common 14:24:12 [facility] [id number] [facility] 2021-06-08 Outpatient Denis, STLMLC STLMLC [id number] Common 13:20:23 [facility] [address] [facility] 2021-06-08 Outpatient Denis, STLMLC STLMLC [id number] Common 13:16:53 [facility] [address] [facility] 2020-10-12 Inpatient Elective Mars, [facility] [id number] [facility] 00:00:00 [place] 54 2022-08-01 2022-08-01 Outpatient SHIRLEY, [facility] [id number] [place] 11:00:00 11:00:00 [facility] 2022-06-16 2022-06-16 OFFICE STLMLC STLMLC [id number] Co mmon 00:00:00 00:00:00 [facility] - CHI L[facility] 4 [facility] 2022-06-16 2022-06-16 (TEL) STLMLC STLMLC [id number] Co mmon 00:00:00 00:00:00 [facility] 2022-06-13 2022-06-13 Outpatient SHIRLEY, [facility] [id number] [place] 16:00:00 16:54:02 [facility] 2022-06-12 2022-06-12 Outpatient SHIRLEY, [facility] [id number] [place] 16:00:00 16:00:00 [facility] 2022-05-25 2022-05-25 Outpatient [facility] [id number] [place] 09:30:00 10:47:14 Health 2022-05-22 2022-05-22 Orders Nel, 1.2.840.1 [id number] Methodi 00:00:00 00:00:00 Only Bia 84797.1.[address] 3.430.2.7 Hospit a .3.332467 l .8 2022-05-22 2022-05-22 (TEL) STLMLC STLMLC [id number] Co mmon 00:00:00 00:00:00 [facility] 2022-05-18 2022-05-18 OFFICE STLMLC STLMLC [id number] Co mmon 00:00:00 00:00:00 [facility] - CHI LEVEL 4 [facility] 2022-05-17 2022-05-17 (TEL) STLMLC STLC [id number] Co mmon 00:00:00 00:00:00 [facility] 2022-04-12 2022-04-12 Outpatient SHIRLEY, [facility] [id number] [place] 11:00:00 12:02:57 FREYA Heal 2022-03-21 2022-03-21 Office Du, 1.2.840.1 [id number] Methodi 09:40:00 13:29:49 Visit Manny Jim 51401.1.[address] 3.430.2.7 Hospit a .3.669814 l .8 2022-03-21 2022-03-21 Travel 1.2.840.1 1.2.796.151 [id number] Methodi 00:00:00 00:00:[address] 3.430.2.7 0.2.7.3.698 Ho spita .3.306407 084.8 l .8 2022-03-21 2022-03-21 [facility] [id number] [place] 00:00:00 00:00:00 MANNY [address] 2022-03-09 2022-03-09 Refill Ana Laura, 1.2.840.1 [id number] Methodi 00:00:00 00:00:00 Manny Jim [address]235.1.[address] 3.430.2.7 Hospit a .3.377547 l .8 2022-02-13 2022-02-13 OFFICE [facility] STLC [id number] Co mmon 00:00:00 00:00:00 VISIT Spirit ESTAB PT - CHI LEVEL 4 [facility] 2022-02-06 2022-02-06 (TEL) STLC STLC [id number] Co mmon 00:00:00 00:00:00 [facility] 2021-11-30 2022-01-25 Outpatient DANIEL DENIS, ENCCLR ENCCLR [id number] ENCCLR 00:00:00 00:00:00 [facility] 2022-01-13 2022-01-13 (TEL) STLMLC STLMLC [id number] Co mmon 00:00:00 00:00:00 [facility] 2022-01-10 2022-01-10 Outpatient SHIRLEY, [facility] [id number] [place] 14:00:00 15:30:16 FREYA [facility] 2022-01-09 2022-01-09 Outpatient AJIT, [facility] [id number] [place] 14:30:00 14:30:00 [facility] 2022-01-06 2022-01-06 (TEL) STLMLC STLMLC [id number] Co mmon 00:00:00 00:00:00 [facility] 2022-01-06 2022-01-06 OFFICE STLMLC STLMLC [id number] Co mmon 00:00:00 00:00:00 VISIT EST Spir it PT LEVEL 3 - [facility] 2021-12-20 2021-12-20 Office Ana Laura, 1.2.840.1 [id number] Methodi 09:15:00 15:12:59 Visit Manny Jim 44362.1.[address] 3.430.2.7 Hospit a .3.365999 l .8 2021-12-20 2021-12-20 Travel 1.2.840.1 1.2.090.171 [id number] Methodi 00:00:00 00:00:[address] 3.430.2.7 0.2.7.3.698 Ho spita .3.557031 084.8 l .8 2021-12-20 2021-12-20 Outpatient ANA LAURA, [facility] [id number] [place] 00:00:00 00:00:00 MANNY [address] 2021-12-13 2021-12-13 OFFICE STLMLC STLMLC [id number] Co mmon 00:00:00 00:00:00 VISIT Spirit ESTAB PT - CHI LEVEL 5 [facility] 2021-12-13 2021-12-13 SUB ANNUAL STLMLC STLMLC [id number] Common 00:00:00 00:00:00 MCR Spirit WELLNESS - CHI VISIT [facility] 2021-12-05 2021-12-05 (TEL) [facility] [id number] Co mmon 00:00:00 00:00:00 [facility] 2021-12-05 2021-12-05 Outpatient ANA LAURA [facility] [id number] [place] 00:00:00 00:00:00 MANNY [address] 2021-11-21 2021-11-28 Inpatient 3 MARSHAL Lindquist CVA [id number] [facility] 20:06:00 12:55:00 Domenico [facility] [place] 2021-11-27 2021-11-27 Emergency E FREEDMAN [facility] [id number] [facility] 11:10:00 18:27:00 ROSELYN JANG 2021-11-22 2021-11-22 Travel 1.2.840.1 1.2.409.329 [id number] Methodi 00:00:00 00:00:[address] 3.430.2.7 0.2.7.3.698 Ho spita .3.021963 084.8 l .8 2021-11-11 2021-11-21 Inpatient E PHI, [facility] [id number] [facility] 19:33:00 18:56:00 SISHIR 2021-11-11 2021-11-11 Telephone Andreea, 1.2.840.1 [id number] Methodi 00:00:00 00:00:[address] [place] 3.430.2.7 Hospi ta .3.866687 l .8 2021-11-11 2021-11-11 (TEL) [facility] [id number] Co mmon 00:00:00 00:00:00 [facility] 2021-11-09 2021-11-09 Refill Ana Laura 1.2.840.1 [id number] Methodi 00:00:00 00:00:[address] 3.430.2.7 Hospit a .3.322115 l .8 2021-11-08 2021-11-08 [facility], 1.2.840.1 [id number] Methodi 00:00:00 00:00:[address] [place] 3.430.2.7 Hospi ta .3.424966 l .8 2021-11-07 2021-11-07 (TEL) [facility] [id number] Co mmon 00:00:00 00:00:00 [facility] 2021-10-27 2021-10-27 [facility], 1.2.840.1 [id number] Methodi 21:44:53 23:59:00 Encounter Omaira 33019.1.[address] [place] 3.430.2.7 Hospi ta .3.160438 l .8 2021-10-27 2021-10-27 [facility], 1.2.840.1 [id number] [id number] Methodi 21:41:15 21:43:00 Encounter Omaira 33750.1.[address] [place] 3.430.2.7 Hospi ta .3.247323 l .8 2021-10-27 2021-10-27 [facility], 1.2.840.1 [id number] [id number] Methodi 21:38:42 21:40:00 Encounter Omaira 71744.1.[address] [place] 3.430.2.7 Hospi ta .3.595765 l .8 2021-10-27 2021-10-27 [facility], 1.2.840.1 [id number] 2099 [id number] Methodi 21:37:24 21:37:24 Encounter Omaira 20139.1.[address] [place] 3.430.2.7 Hospi ta .3.713052 l .8 2021-10-27 2021-10-27 [facility], 1.2.840.1 [id number] [id number] Methodi 21:35:48 21:36:00 Encounter Omaira 38774.1.[address] [place] 3.430.2.7 Hospi ta .3.605751 l .8 2021-10-27 2021-10-27 [facility], 1.2.840.1 [id number] 2099 [id number] Methodi 21:34:26 21:34:26 Encounter Omaira 90325.1.[address] [place] 3.430.2.7 Hospi ta .3.197792 l .8 2021-10-27 2021-10-27 [facility], 1.2.840.1 [id number] 2099 [id number] Methodi 21:30:03 21:33:00 Encounter Omaira 29035.1.[address] [place] 3.430.2.7 Hospi ta .3.164756 l .8 2021-10-17 2021-10-27 Inpatient 3 Ameena, ENCPL CVA [id number] [facility] 20:15:00 10:30:00 Domenico 0[facility] 2021-10-27 2021-10-27 [facility] [id number] [address] [place] [address] 00:00:00 00:00:00 OMAIRA 192 Method i 2021-10-27 2021-10-27 Outpatient [address] 00:00:00 00:00:00 OMAIRA 250 Method i 2021-10-27 2021-10-27 Outpatient [address] 00:00:00 00:00:00 OMAIRA 265 Method i 2021-10-27 2021-10-27 Outpatient ANDREEA[address] 00:00:00 00:00:00 OMAIRA 281 Method i 2021-10-27 2021-10-27 Outpatient ANDREEA[address] 00:00:00 00:00:00 OMAIRA 293 Method i 2021-10-27 2021-10-27 [id number] [place] [address] 00:00:00 00:00:00 OMAIRA 327 Method i 2021-10-27 2021-10-27 Outpatient ANDREEA, [facility] [id number] [place] 00:00:00 00:00:00 OMAIRA [address] 2021-10-17 2021-10-17 Telemedici Ana Laura, 1.2.840.1 [id number] Methodi 14:45:00 15:04:28 ne Manny Jim 25250.1.[address] 3.430.2.7 Hospit a .3.374431 l .8 2021-10-17 2021-10-17 Outpatient ANA LAURA [facility] [id number] [place] 00:00:00 00:00:00 MANNY [address] 2021-10-15 2021-10-15 Telephone Carolyn Hayes 1.2.840.1 [id number] Methodi 00:00:00 00:00:[address] 3.430.2.7 Hospit a .3.599592 l .8 2021-10-05 2021-10-05 (TEL) STLMLC STLMLC [id number] Co mmon 00:00:00 00:00:00 [facility] 2021-10-04 2021-10-04 Travel 1.2.840.1 1.2.756.165 [id number] Methodi 00:00:00 00:00:[address] 3.430.2.7 0.2.7.3.698 [facility] 084.8 l .8 2021-10-04 2021-10-04 Outpatient ANA LAURA [facility] [id number] [place] 00:00:00 00:00:00 MANNY [address] 2021-09-19 2021-09-19 (TEL) STLMLC STLMLC [id number] Co mmon 00:00:00 00:00:00 [facility] 2021-09-13 2021-09-13 Office Miles, 1.2.840.1 [id number] Methodi 12:30:00 12:59:48 Visit Moustapha Smith 88253.1.[address] 3.430.2.7 Hospit a .3.357456 l .8 2021-09-13 2021-09-13 Outpatient JOSE [facility] [id number] [place] 00:00:00 00:00:00 MOUSTAPHADERRICK Pelletier [facility] 2021-09-12 2021-09-12 OFFICE STLM STLMLC [id number] Co mmon 00:00:00 00:00:00 VISIT hSay ESTAB PT - CHI LEVEL 4 [facility] 2021-09-06 2021-09-06 Sridevi Du 1.2.840.1 [id number] Methodi 00:00:00 00:00:[address] 3.430.2.7 Hospit a .3.501011 l .8 2021-09-02 2021-09-02 Yulisa Denson 1.2.840.1 [id number] Methodi 00:00:00 00:00:00 Only Rhoda 54689.1.[address] 3.430.2.7 Hospit a .3.733199 l .8 2021-08-30 2021-08-30 Sridevi Denson 1.2.840.1 [id number] Methodi 00:00:00 00:00:[address] 3.430.2.7 Hospit a .3.900746 l .8 2021-08-26 2021-08-26 Sridevi Du 1.2.840.1 [id number] Methodi 00:00:00 00:00:00 Manny Jim 26729.1.[address] 3.430.2.7 Hospit a .3.683237 l .8 2021-06-28 2021-06-28 Office Bertha Santana 1.2.840.1 [id number] Methodi 13:20:00 13:40:34 Visit Faisal 24260.1.[address] 3.430.2.7 Hospit a .3.180916 l .8 2021-06-28 2021-06-28 Travel 1.2.840.1 1.2.225.071 3275 [id number] Methodi 00:00:00 00:00:[address] 3.430.2.7 0.2.7.3.698 Ho spita .3.733102 084.8 l .8 2021-06-28 2021-06-28 Outpatient SIDRAReggie BERTHA [facility] [id number] [place] 00:00:00 00:00:[address] 2021-06-21 2021-06-21 Office Ana Laura, 1.2.840.1 [id number] 6412 Methodi 07:51:10 12:33:18 Visit Manny Jim 11843.1.[address] 3.430.2.7 Hospit a .3.704754 l .8 2021-06-21 2021-06-21 Travel 1.2.840.1 1.2.102.057 7933 588306 Methodi 00:00:00 00:00:[address] 3.430.2.7 0.2.7.3.698 Ho spita .3.012063 084.8 l .8 2021-06-16 2021-06-16 Refill Ana Laura, 1.2.840.1 [id number] 4203 Methodi 00:00:00 00:00:[address] 3.430.2.7 Hospit a .3.379359 l .8 2021-06-10 2021-06-10 Surgery Bertha Santana 1.2.840.1 [id number] [id number] Methodi 09:00:00 09:40:[address] 3.430.2.7 Hospit a .3.709180 l .8 2021-06-10 2021-06-10 Anesthesia Suyapa Day 1.2.840.1 [id number] Methodi 08:14:00 08:38:00 Event Rj Yoder 96318.1.[address] 3.430.2.7 Hospit a .3.346348 l .8 2021-06-10 2021-06-10 Hospital BERTHA SANTANA [facility] 021 [id number] 1927 [place] 00:00:00 00:00:00 Encounter [address] 2021-06-08 2021-06-08 Refill Janiya, 1.2.840.1 [id number] Methodi 00:00:00 00:00:[address] 3.430.2.7 Hospit a .3.789789 l .8 2021-06-08 2021-06-08 Refill Ana Laura, 1.2.840.1 [id number] 7131 Methodi 00:00:00 00:00:[address] 3.430.2.7 Hospit a .3.937371 l .8 2021-06-02 2021-06-02 Office Bertha Santana 1.2.840.1 [id number] 185 [id number] Methodi 09:41:51 12:05:20 Visit Faisal 97917.1.[address] 3.430.2.7 Hospit a .3.415633 l .8 2021-06-02 2021-06-02 Outpatient BERTHA SANTANA [facility] 2100 [id number] [place] 00:00:00 00:00:[address] 2021-06-02 2021-06-02 Prep for Titus, 1.2.840.1 [id number] 38322 97248 Methodi 00:00:00 00:00:00 Surgery Mahi 35051.1.[address] 3.430.2.7 Hospit a .3.448101 l .8 2021-06-02 2021-06-02 Documentat Charlie, 1.2.840.1 [id number] 21 [id number] Methodi 00:00:00 00:00:[address] ion Wanda 49531.1.[address] 3.430.2.7 Hospit a .3.400209 l .8 2021-06-02 2021-06-02 Travel 1.2.840.1 1.2.860.472 3803 166792 Methodi 00:00:00 00:00:[address] 3.430.2.7 0.2.7.3.698 Ho spita .3.853539 084.8 l .8 2021-06-02 2021-06-02 Outpatient BERTHA SANTANA [facility] 2100 [id number] [place] 00:00:00 00:00:[address] 2021-05-19 2021-05-19 Office Bertha Santana 1.2.840.1 [id number] 745 [id number] Methodi 08:03:10 08:35:[address]1.[address] 3.430.2.7 Hospit a .3.466484 l .8 2021-05-19 2021-05-19 Travel 1.2.840.1 1.2.787.072 3574 209558 Methodi 00:00:00 00:00:[address] 3.430.2.7 0.2.7.3.698 Ho spita .3.991241 084.8 l .8 2021-05-17 2021-05-17 [facility] 1.2.840.1 [id number] 21 [id number] Methodi 09:57:39 23:59:[address]4968.1.[address] 3.430.2.7 Hospit a .3.682205 l .8 2021-05-17 2021-05-17 [facility] 1.2.840.1 [id number] 21 [id number] Methodi 09:31:37 09:56:[address]1.[address] 3.430.2.7 Hospit a .3.161075 l .8 2021-05-17 2021-05-17 Travel 1.2.840.1 1.2.281.643 0285 101466 Methodi 00:00:00 00:00:[address] 3.430.2.7 0.2.7.3.698 Ho spita .3.743531 084.8 l .8 2021-05-17 2021-05-17 Outpatient MILTON MIRELES [facility] 2100 [id number] [place] 00:00:00 00:00:[address] 2021-05-16 2021-05-16 Refill Ana Laura, 1.2.840.1 [id number] 0487 Methodi 00:00:00 00:00:[address] 3.430.2.7 Hospit a .3.975248 l .8 2021-05-10 2021-05-10 Office Bertha Santana 1.2.840.1 [id number] Methodi 09:28:40 10:44:11 Visit Milton Mireles 00379.1.[address] 3.430.2.7 Hospit a .3.372102 l .8 2021-05-10 2021-05-10 Travel 1.2.840.1 1.2.776.702 5531 358785 Methodi 00:00:00 00:00:[address] 3.430.2.7 0.2.7.3.698 Ho spita .3.936382 084.8 l .8 2021-05-03 2021-05-03 (TEL) STLMLC STLMLC [id number] Co mmon 00:00:00 00:00:00 [facility] 2021-05-03 2021-05-03 Travel 1.2.840.1 1.2.437.788 7160 287136 Methodi 00:00:00 00:00:[address] 3.430.2.7 0.2.7.3.698 Ho spita .3.966033 084.8 l .8 2021-04-27 2021-04-27 Orders Susan Angel 1.2.840.1 [id number] 2099 708652 Methodi 00:00:00 00:00:[address] 3.430.2.7 Hospit a .3.025008 l .8 2021-04-26 2021-04-26 OFFICE STLM STLM [id number] Co mmon 00:00:00 00:00:00 VISIT Shay CUELLAR PT - CHI LEVEL 4 [facility] 2021-04-20 2021-04-20 Office Susan Angel 1.2.840.1 [id number] 2100 026965 Methodi 11:14:54 13:12:[address] 3.430.2.7 Hospit a .3.219032 l .8 2021-04-20 2021-04-20 Lab Susan Angel 1.2.840.1 [id number] 2099 860474 Methodi 12:16:49 12:21:[address] 3.430.2.7 Hospit a .3.180610 l .8 2021-04-20 2021-04-20 Travel 1.2.840.1 1.2.652.040 7615 890843 Methodi 00:00:00 00:00:[address] 3.430.2.7 0.2.7.3.698 Ho spita .3.093341 084.8 l .8 2021-04-20 2021-04-20 Outpatient SUSAN ANGEL [facility] 22389 48137 [place] 00:00:00 00:00:[address] 2021-03-25 2021-03-25 Telephone Peter, 1.2.840.1 [id number] 2100 [id number] Methodi 00:00:00 00:00:[address] 3.430.2.7 Hospit a .3.603244 l .8 2021-03-07 2021-03-07 Refill Ana Laura 1.2.840.1 [id number] 251416 8090 Methodi 00:00:00 00:00:[address] 3.430.2.7 Hospit a .3.479078 l .8 2021-03-07 2021-03-07 Refill Jose, 1.2.840.1 [id number] 2959 Methodi 00:00:00 00:00:00 [address]oustap[address] Smith 16978.1.[address] 3.430.2.7 Hospit a .3.520924 l .8 2021-02-21 2021-02-21 Refill Ana Laura, 1.2.840.1 [id number] 2033 Methodi 00:00:00 00:00:[address] 3.430.2.7 Hospit a .3.004275 l .8 2021-01-07 2021-01-07 Outpatient STLMLC STLC [id number] Common 00:00:00 00:00:00 [facility] 2021-01-07 2021-01-07 Outpatient STLC STLC [id number] Common 00:00:00 00:00:00 [facility] 2020-12-28 2020-12-28 Travel 1.2.840.1 1.2.339.911 4943 879774 Methodi 00:00:00 00:00:[address] 3.430.2.7 0.2.7.3.698 Ho spita .3.326863 084.8 l .8 2020-12-28 2020-12-28 Outpatient ANA LAURA [facility] [id number] 152 [place] 00:00:00 00:00:00 MANNY [address] 2020-12-21 2020-12-21 Office Ana Laura, 1.2.840.1 [id number] 5383 Methodi 12:20:32 16:33:51 Visit Manny Youngblood.1.[address] 3.430.2.7 Hospit a .3.635375 l .8 2020-12-21 2020-12-21 Outpatient Van_T [facility] [id number]- 202 [place] 08:46:00 08:46:00 [facility] 2020-12-21 2020-12-21 Travel 1.2.840.1 1.2.202.176 5534 434400 Methodi 00:00:00 00:00:[address] 3.430.2.7 0.2.7.3.698 Ho spita .3.995289 084.8 l .8 2020-12-21 2020-12-21 Telephone Ricki De La Fuente 1.2.840.1 [id number] 21 [id number] Methodi 00:00:00 00:00:[address] 3.430.2.7 Hospit a .3.998450 l .8 2020-12-20 2020-12-20 Outpatient Van_T [facility] [id number]- [place] 09:12:00 09:12:00 [facility] 2020-12-17 2020-12-17 Outpatient Van_T [facility] U [id number]- [place] 12:36:00 12:36:00 [facility] 2020-12-16 2020-12-16 Outpatient Van_T [facility] U [id number]- [place] 10:36:00 10:36:00 [facility] 2020-12-16 2020-12-16 Outpatient Roc Viveros [facility] 83fb [id number] 00:00:00 00:00:00 Albert Valdivia [id number] 2020-12-16 2020-12-16 Roc Price [facility] [place] - [id number] 5 [place] 00:00:00 00:00:00 Shea Viveros MD: [facility] [facility], - [address] [place] [address] , Ph. 2020-12-15 2020-12-15 Outpatient Van_T [facility] U [id number]- [place] 03:10:00 03:10:00 43502 [facility] 2020-12-10 2020-12-10 Outpatient Van_T [facility] U [id number]- [place] 09:51:00 09:51:00 32287 [facility] 2020-12-09 2020-12-09 Outpatient Van_T [facility] [id number] [place] 01:46:00 01:46:00 12198 [facility] 2020-12-09 2020-12-09 Roc Price [facility] [place] - [id number] [place]itzer 00:00:00 00:00:00 Shea Viveros MD: [facility] [address] [facility] [place], [facility], - [address] [place] [address] , Ph. 2020-12-09 2020-12-09 Outpatient Roc Viveros [facility] [id number] [id number] 00:00:00 00:00:00 Albert Valdivia [id number] 2020-12-09 2020-12-09 Jeffery Du 1.2.840.1 [id number] 2100 [id number] Methodi 00:00:00 00:00:[address].1.[address] 3.430.2.7 Hospit a .3.906224 l .8 2020-11-29 2020-11-29 Outpatient ANA LAURA [facility] [id number] 983 [place] 00:00:00 00:00:[address] MANNY [address] 2020-11-24 2020-11-24 Refill Ana Laura 1.2.840.1 [id number] 7626 Methodi 00:00:00 00:00:[address] 3.430.2.7 Hospit a .3.725935 l .8 2020-11-17 2020-11-17 Yulisa Denson 1.2.840.1 [id number] 796 [id number] Methodi 00:00:00 00:00:00 Only Rhoda 18083.1.[address] 3.430.2.7 Hospit a .3.710395 l .8 2020-11-09 2020-11-09 Outpatient Van_T [facility] [id number]- [place] 03:36:00 03:36:00 15090 [facility] 2020-11-04 2020-11-04 Outpatient Van_T [facility] [id number] [place] 02:39:00 02:39:00 02053 [facility] 2020-11-04 2020-11-04 Outpatient Roc Viveros [facility] 2533 [id number] 00:00:00 00:00:00 Albert Valdivia [id number] 2020-11-04 2020-11-04 Roc Price [facility] [place] - [id number] 4 [place] 00:00:00 00:00:00 Shea Viveros MD: [facility] [address] [facility]JA [facility], [place] [address] , Ph. 2020-11-03 2020-11-03 Outpatient Van_Dacia [facility] [id number]- [place] 10:05:00 10:05:00 [facility] 2020-11-02 2020-11-02 Outpatient STLMLC [facility] [id number] Common 00:00:00 00:00:00 [facility] 2020-11-02 2020-11-02 Refjunaid Du 1.2.840.1 [id number] 3517 Methodi 00:00:00 00:00:[address] 3.430.2.7 Hospit a .3.212921 l .8 2020-11-01 2020-11-01 Outpatient STLMLC STLMLC [id number] Common 00:00:00 00:00:00 [facility] 2020-10-20 2020-10-20 Sridevi Du 1.2.840.1 [id number] [id number] 5733 Methodi 00:00:00 00:00:[address] 3.430.2.7 Hospit a .3.070563 l .8 2020-10-19 2020-10-19 Office Susan Angel 1.2.840.1 [id number] 2100 [id number] Methodi 10:25:06 11:05:[address] 3.430.2.7 Hospit a .3.139507 l .8 2020-10-19 2020-10-19 Travel 1.2.840.1 1.2.631.153 0587 340649 Methodi 00:00:00 00:00:[address] 3.430.2.7 0.2.7.3.698 Ho spita .3.030252 084.8 l .8 2020-10-07 2020-10-07 Telephone Todd, 1.2.840.1 [id number] 2099 [id number] Methodi 00:00:00 00:00:[address] 3.430.2.7 Hospit a .3.357466 l .8 2020-10-05 2020-10-05 Lab Jeanne Seaidjerzy 1.2.840.1 [id number] 2099 131934 Methodi 10:03:48 10:08:[address] 3.430.2.7 Hospit a .3.611280 l .8 2020-10-05 2020-10-05 Office Omaira Castillo 1.2.840. 1 [id number] Methodi 08:42:07 09:42:07 Visit Jeanne Saeidjerzy 29474.1.[address] 3.430.2.7 Hospit a .3.015458 l .8 2020-10-04 2020-10-04 Office Jose, 1.2.840.1 [id number] 2618 Methodi 07:33:51 07:48:51 Visit Moustapha Smith 25520.1.[address] 3.430.2.7 Hospit a .3.609858 l .8 2020-10-04 2020-10-04 Travel 1.2.840.1 1.2.215.169 4378 477238 Methodi 00:00:00 00:00:[address] 3.430.2.7 0.2.7.3.698 Ho spita .3.854452 084.8 l .8 2020-09-21 2020-09-21 Office Andreea .2.840.1 [id number] 81499 04051 Methodi 08:13:45 08:33:45 Visit Omaira 79741.1.[address] Claudia 3.430.2.7 Hospi ta .3.436887 l .8 2020-09-21 2020-09-21 Orders Ricki De La Fuente 1.2.840.1 [id number] 2099 [id number] Methodi 00:00:00 00:00:[address] 3.430.2.7 Hospit a .3.427598 l .8 2020-09-21 2020-09-21 Travel 1.2.840.1 1.2.207.411 6176 805611 Methodi 00:00:00 00:00:[address] 3.430.2.7 0.2.7.3.698 Ho spita .3.572240 084.8 l .8 2020-09-14 2020-09-14 Telephone Jose, 1.2.840.1 [id number] 2099 [id number] Methodi 00:00:00 00:00:00 [address]utap[address] Smith [address] 3.430.2.7 Hospit a .3.749531 l .8 2020-09-06 2020-09-06 Outpatient ANDREEA [facility] [id number] [place] 00:00:00 00:00:00 OMAIRA [address] 2020-09-03 2020-09-03 [facility] [id number] 7294 [place] 00:00:00 00:00:00 OMAIRA [address] 2020-09-03 2020-09-03 Travel 1.2.840.1 1.2.018.345 8680 930124 Methodi 00:00:00 00:00:[address] 3.430.2.7 0.2.7.3.698 Ho spita .3.445697 084.8 l .8 2020-08-26 2020-08-26 Lab Andreea 1.2.840.1 [id number] 79461 93333 Methodi 14:20:44 14:25:[address] Claudia 3.430.2.7 Hospi ta .3.615337 l .8 2020-08-26 2020-08-26 Office Andreea, 1.2.840.1 [id number] 85844 53889 Methodi 12:54:06 14:16:01 Visit Omaira 94534.1.[address] Claudia 3.430.2.7 Hospi ta .3.089108 l .8 2020-08-26 2020-08-26 Travel 1.2.840.1 1.2.351.366 7861 331653 Methodi 00:00:00 00:00:[address] 3.430.2.7 0.2.7.3.698 Ho spita .3.460836 084.8 l .8 2020-08-16 2020-08-16 Orders Le, Ricki 1.2.840.1 [id number] 2099 [id number] Methodi 00:00:00 00:00:[address] 3.430.2.7 Hospit a .3.833187 l .8 2020-08-06 2020-08-06 Telephone Le, Ricki 1.2.840.1 [id number] Methodi 00:00:00 00:00:[address] 3.430.2.7 Hospit a .3.434873 l .8 2020-08-05 2020-08-05 Orders Le, Ricki 1.2.840.1 [id number] 2099 [id number] Methodi 00:00:00 00:00:[address] 3.430.2.7 Hospit a .3.526131 l .8 2020-06-15 2020-07-26 Clinical 1.2.840.1 [id number] 21555 15843 Methodi 08:37:10 14:40:[address] 3.430.2.7 Hospit a .3.056766 l .8 2020-07-26 2020-07-26 Refill Du, 1.2.840.1 [id number] 796137 4123 Methodi 00:00:00 00:00:[address].1.[address] 3.430.2.7 Hospit a .3.783647 l .8 2020-07-26 2020-07-26 Refill Du, 1.2.840.1 [id number] 640448 0422 Methodi 00:00:00 00:00:[address] 3.430.2.7 Hospit a .3.200454 l .8 2020-07-22 2020-07-22 Travel 1.2.840.1 1.2.673.652 8276 516932 Methodi 00:00:00 00:00:[address] 3.430.2.7 0.2.7.3.698 Ho spita .3.156457 084.8 l .8 2020-07-13 2020-07-13 Telephone Du, 1.2.840.1 [id number] 2100 380589 Methodi 00:00:00 00:00:[address].1.[address] 3.430.2.7 Hospit a .3.963738 l .8 2020-07-06 2020-07-06 Office Miles, 1.2.840.1 [id number] [id number] 8752 Methodi 14:40:46 14:55:46 Visit Moustapha Smith 01927.1.[address] 3.430.2.7 Hospit a .3.455457 l .8 2020-07-06 2020-07-06 Travel 1.2.840.1 1.2.899.898 9385 624223 Methodi 00:00:00 00:00:[address] 3.430.2.7 0.2.7.3.698 Ho spita .3.012450 084.8 l .8 2020-06-29 2020-06-29 Telephone Ana Laura, 1.2.840.1 [id number] 2099 [id number] Methodi 13:47:06 14:02:06 Lynnet[address] Jim 05492.1.[address] 3.430.2.7 Hospit a .3.677820 l .8 2020-06-29 2020-06-29 Ricki Leyva 1.2.840.1 [id number] 2099 619043 Methodi 00:00:00 00:00:[address] 3.430.2.7 Hospit a .3.787817 l .8 2020-06-21 2020-06-21 Telephone Jose, 1.2.840.1 [id number] 2099 [id number] Methodi 00:00:00 00:00:00 M[address] Smith 52073.1.[address] 3.430.2.7 Hospit a .3.553666 l .8 2020-05-18 2020-05-18 Outpatient [facility] [id number] [place] 00:00:00 00:00:[address] 2020-03-18 2020-03-18 Outpatient 3 Bismark Mars [facility] [id number] 12:46:00 12:46:00 Jerad Bismark [facility] 2020-03-16 2020-03-16 Outpatient JOSE, [facility] [id number] 710 [place] 00:00:00 00:00:[address] M[address]APHA [address] 2020 2020 [facility] [id number] 058 [place] 00:00:00 00:00:00 MOUSTAPHA [address] 2020-01-26 2020-01-26 [facility] [id number] 629 [place] 00:00:00 00:00:[address]HA [address] 2020-01-26 2020-01-26 Outpatient JOSE, [facility] [id number] [place] 00:00:00 00:00:[address] 2020-01-01 2020-01-01 Outpatient DU, [facility] [id number] 491 [place] 00:00:00 00:00:00 MANNY [address] 2019-12-30 2019-12-30 Outpatient DU, [facility] [id number] 454 [place] 00:00:00 00:00:00 MANNY [address] 2019-12-18 2019-12-18 Outpatient COH COH PDPFEIM SMO COH 00:00:00 00:00:00 [id number] 123 2019-10-07 2019-10-07 Outpatient [facility] [id number] [place] 00:00:00 00:00:[address] 2019-10-02 2019-10-02 Outpatient JOSE, [facility] [id number] 006 [place] 00:00:00 00:00:00 MOUSTAPHA [address] 2019-09-29 2019-09-29 Outpatient JOSE, [facility] [id number] 653 [place] 00:00:00 00:00:00 MOUSTAPHA [address] 2019-09-29 2019-09-29 Outpatient JOSE, [facility] [id number] [place] 00:00:00 00:00:00 MOUSTAPHA [address] 2019-09-18 2019-09-18 Outpatient JOSE, [facility] [id number] 233 [place] 00:00:00 00:00:00 MOUSTAPHA [address] 2019-09-18 2019-09-18 Outpatient [facility] [id number] [place] 00:00:00 00:00:[address] 2019-08-29 2019-08-29 Outpatient DU, [facility] [id number] [place] 00:00:00 00:00:00 MANNY [address] 2019-08-25 2019-08-25 Outpatient [facility] [id number] 215 [place] 00:00:00 00:00:[address] 2019-07-29 2019-07-29 Outpatient JOSE, [facility] [id number] 028 [place] 00:00:00 00:00:00 MOUSTAPHA [address] 2019-07-24 2019-07-24 Outpatient DIMPLE, [facility] [id number] 138 [place] 00:00:00 00:00:00 CHONG [address] 2019-05-30 2019-05-30 Outpatient JOSE, [facility] [id number] 197 [place] 00:00:00 00:00:00 MOU[address]APHA [address] 2019-04-27 2019-04-27 Outpatient MATTIE, [facility] [id number] 667 [place] 00:00:00 00:00:00 KOENIG [address] 2019-02-13 2019-02-14 Outpatient ANA LAURA, [facility] [id number] [place] 00:00:00 00:00:[address] MANNY [address] 2013-08-06 2013-06-05 FUCRIS Niño [id number] emoria 07:40:00 16:18:01 Provider: SAMMIE LawrenceY, Status: Pen, Time: 7:40 AM 2013-06-05 2013-06-05 AUDIT CRIS LYNCH [id number] M emoria 10:18:01 16:18:01 maria elena Osman 2012-12-07 2012-12-08 AUDIT CRIS LYNCH [id number] M emoria 19:04:39 00:04:17 maria elena Osman 2012-10-31 2012-10-05 POP, CRIS LYNCH [id number] M emoria 09:30:00 15:44:57 Provider: DEONDRE Daigle KEYONNA, Status: Pen, Time: 9:30 AM 2012-10-05 2012-10-05 AUDIT MEGKENYON MEGIE [id number] M emoria 10:45:16 15:44:57 maria elena Osman Results Test Description Test Time Test Comments Results Result Comments Source ECG 12 lead 2021-06-21 20:04:42 Test Item Value Reference Range Interpretation Comme nts Ventricular rate (test code = 253) Atrial rate (test code = 255) AK interval (test code = 266) QRSD interval (test code = 260) QT interval (test code = 264) QTC interval (test code = 265) P axis 1 (test code = 267) QRS axis 1 (test code = 268) T wave axis (test code = 270) EKG impression (test code = 273) Normal sinus rhythm-Nonspecific ST and T wave abnormality[facility] [id number] 01:20:20 Test Item Value Reference Range Interpretation Comments Case number (test code = [id number]) Surgical pathology See link below for report (test code = PDF Lab Report [id number]) Result status (test code This is Final Report = [id number]) for [id number] [facility] [id number] 17:23:00 Test Item Value Reference Interpretation Comments Range Glucose (test code 109 mg/dL 65-99 H Fasting reference = 2345-7) interval For so mealfonso without known diabetes, a glu cose valuebetween 10 0 and 125 mg/dL is consistent withprediabetes and should be confi rmed with afollow-up test. BUN (test code = 24 mg/dL 7- 3094-0) Creatinine (test 1.68 mg/dL 0.70-1.11 H For patient s >49 code = 2160-0) years of age, the reference limit for Creatinine is approximately 1 3% higher for peopleidentifie d as -Vivi n. EGFR Non-Afr. See_Comment L [Automated me ssage] Kazakh (test code The syst em which = 8925) generated this result transmit tisha reference range : > OR = 60 mL/min/1.73m2. The reference range was not used to interpret this result as normal/abnormal . EGFR See_Comment L [Automated mes nik] Kazakh (test code The syst em which = 9924) generated this result transmit tisha reference range [...] . Sodium (test code = 137 mmol/L 267-984 4064-2) Potassium (test 4.5 mmol/L 3.5-5.3 code = 2823-3) Chloride (test code 102 mmol/L 98-110 = 2075-0) CO2 (test code = 27 mmol/L 20-32 2027-9) Calcium (test code 9.3 mg/dL 8.6-10.3 = 99466-4) Protein (test code 6.8 g/dL 6.1-8.1 = 2885-2) Albumin, S (test 4.1 g/dL 3.6-5.1 code = 1751-7) Globulin, total See_Comment [Automated message] (test code = [place] [address]-6) generated this result transmit tisha reference range [...] bilirubin 0.6 mg/dL 0.2-1.2 (test code = 1974-) Alkaline 65 U/L 35-144 phosphatase (test code = 6768-6) AST (test code = 22 U/L 10-35 1920-8) ALT (test code = 22 U/L 9-46 1742-6) RAC (test code = Performing RAC) Organization Information: Site ID: [facility] Address: [address] [place] [phone] Director: Maxx Mejia Lab Interpretation Abnormal (test code = 50943-5) [facility] [id number] 17:23:00 Test Item Value Reference Range Interpretation Comments CRP (test code = 0.8 mg/L <8.0 1987-09) RAC (test code = Performing Organization RAC) Information: Site ID: A [facility] Address: [address] [place] [phone] Director: Maxx Mejia [place] [id number] complement [id number] 17:23:00 Test Item Value Reference Range Interpretation Comments C4 complement 24 mg/dL Reference Rang e<1 (test code = year: Not 4498-2) established1-14 years: - 80 years: 15-53> o r = 80 years Not established RAC (test code = Performing RAC) Organization Information: Site ID: A [facility] Address: [address] [place] [phone] Director: [place] [id number] complement [id number] 17:23:00 Test Item Value Reference Range Interpretation Comments C3 complement 142 mg/dL Reference Rang e<1 (test code = year: Not 4485-9) established1-14 years: 80-30781 -80 years: 82-185> or = 80 years Not established RAC (test code = Performing RAC) Organization Information: Site ID: RGA Name[facility] Address: [address] [place] [phone] [facility] and [id number] 17:23:00 Test Item Value Reference Range Interpretation Comments WBC (test code = See_Comment [Automated 2990-2) message] The system which generated this result transmitted reference range : 3.8 - 10.8 Thousand/uL. Th e reference range was not used to interpret this result as normal/abnormal . RBC (test code = See_Comment L [Automated 209-8) message] The system which generated this result [...] RAC) Organization Information: Site ID: A Name: [facility] Lab Address: [address] [place], [place] [phone] Director: Maxx Mejia Lab Interpretation Abnormal (test code = 05557-8) [facility] [id number] 17:23:00 Test Item Value Reference Range Interpretation Comments Sedimentation rate 33 mm/h See_Comment H [Automat ed (test code = 4537-7) message ] The system which generated this result transmitted reference range : < OR = 20. The reference range was not used to interpret this result as normal/abnormal . RAC (test code = Performing RAC) Organization Information: Site ID: A Name: [facility] Lab Address: [address] [place] [phone] Director: Maxx Mejia Lab Interpretation Abnormal (test code = 66695-2) [facility], automated with [id number] 17:23:00 Test Item Value Reference Range Interpretation Comments Color, UA (test code DARK YELLOW YELLOW = 5778-6) Appearance (test CLEAR CLEAR code = 5767-9) Specific gravity, 1.001-1.035 urine (test code = 5811-5) pH, urine (test code 5.0-8.0 = 5803-2) Glucose, urine (test NEGATIVE NEGATIVE code = 35054-4) Bilirubin, UA (test NEGATIVE NEGATIVE Verified by code = 5770-3) repeat analys is. Ketones, UA (test TRACE NEGATIVE A code = 2514-8) Occult blood, urine NEGATIVE NEGATIVE (test code = 5794-3) Protein, UA (test TRACE NEGATIVE A code = 03196-7) Nitrite, UA (test NEGATIVE NEGATIVE code = [...] code = NONE SEEN See_Comment [Autom ated 58736-9) message] The system which generated this result transmitted reference range : < OR = 2 /HPF. The reference range was not used to interpr et this result as normal/abnormal . Squamous epithelial 0-5 See_Comment [Automa tisha cells, UA (test code message ] The = 47520-3) system which generated this result transmitted reference [...] RAC) Organization Information: Site ID: RGA Name: [facility] Lab Address: [address] [place] [phone] Director: Maxx Millerge Lab Interpretation Abnormal (test code = 42231-5) [facility] protein/creatinine ratio, [id number] 17:23:00 Test Item Value Reference Range Interpretation [...] RAC) Organization Information: Site ID: RGA Name: [facility] Lab Address: [address] [place] [phone] Director: Maxx Garciaenridge Lab Interpretation Abnormal (test code = 61720-2) [facility]Str[facility] DNA (dsDNA) antibodies, [id number] 17:23:00 Test Item Value Reference Range Interpretation Comments dsDNA Ab, Crithidia NEGATIVE NEGATIVE ([facility]) (test code = 6457-6) RAC (test code = RAC) Performing Organization Information: Site ID: EZ Name: [employer], Address: [address] [place] [address] Director: Katrin Curran MD,PhD,TYESHA [facility]anoComprehensive metabolic [id number] 17:23:00 Test Item Value Reference Interpretation Comments Range Glucose (test code 109 mg/dL 65-99 H Fasting reference = 2345-7) interval For so meone without known diabetes, a glu cose valuebetween 10 0 and 125 mg/dL is consistent withprediabetes and should be confi rmed with afollow-up test. BUN (test code = 24 mg/dL 7- 3094-0) Creatinine (test 1.68 mg/dL 0.70-1.11 H For patient s >49 code = 2160-0) years of age, the reference limit for Creatinine is approximately 1 3% higher for peopleidentifie d as -Vivi n. EGFR Non-Afr. See_Comment L [Automated me ssage] Kazakh (test code The syst em which = 2775) generated this result transmit tisha reference range : > OR = 60 mL/min/1.73m2. The reference range was not used to interpret this result as normal/abnormal . EGFR See_Comment L [Automated mes nik] Kazakh (test code The syst em which = 2774) generated this result transmit tisha reference range : > OR = 60 mL/min/1.73m2. The reference range was not used to interpret this result as normal/abnormal . BUN/creatinine See_Comment [Automated m essage] ratio (test code = The [employer] which 3097-3) generated this result transmit tisha reference range : 6 - 22 (calc). The reference range was not used to interpret this result as normal/abnormal . Sodium (test code = 137 mmol/L 376-806 4182-2) Potassium (test 4.5 mmol/L 3.5-5.3 code = 2823-3) Chloride (test code 102 mmol/L 98-110 = 2075-0) CO2 (test code = 27 mmol/L 20-32 8-9) Calcium (test code 9.3 mg/dL 8.6-10.3 = 56403-3) Protein (test code 6.8 g/dL 6.1-8.1 = 2885-2) Albumin, S (test 4.1 g/dL 3.6-5.1 code = 1751-7) Globulin, total See_Comment [Automated message] (test code = The system [facility] h [address]-8) generated this result transmit tisha reference range : 1.9 - 3.7 g/dL (eli c). The reference r olivia was not used to interpret this result as normal/abnormal . Albumin/globulin See_Comment [Automated message] ratio (test code = The [facility] Cytometershospital for special surgery which 1759-0) generated this result transmit tisha reference range : 1.0 - 2.5 (calc). T he reference range was not used to interpret this result as normal/abnormal . Total bilirubin 0.6 mg/dL 0.2-1.2 (test code = 1975-2) Alkaline 65 U/L 35-144 phosphatase (test code = 6768-6) AST (test code = 22 U/L 1035 1920-8) ALT (test code = 22 U/L 946 2-6) RAC (test code = Performing RAC) Organization Information: Site ID: DOT [facility] Address: [address] [place] [address] Director: Maxx Millerge Lab Interpretation Abnormal (test code = 03334-6) [facility]anoC-reactive [id number] 17:23:00 Test Item Value Reference Range Interpretation Comments CRP (test code = 0.8 mg/L <8.0 1987-09) RAC (test code = Performing Organization RAC) Information: Site ID: RGA Name: [facility] Address: [address] [place] [address] Director: [place] [id number] complement [id number] 17:23:00 Test Item Value Reference Range Interpretation Comments C4 complement 24 mg/dL Reference Rang e<1 (test code = year: Not 4497-06) established-14 years: - 80 years: 15-53> o r = 80 years Not established RAC (test code = Performing RAC) Organization Information: Site ID: A Name: [facility] Address: [address] [place] [address] Director: [place] [id number] complement [id number] 17:23:00 Test Item Value Reference Range Interpretation Comments C3 complement 142 mg/dL Reference Rang e<1 (test code = year: Not 4485-01) established-14 years: -80 years: 82-185> or = 80 years Not established RAC (test code = Performing RAC) Organization Information: Site ID: RGA Name: [facility] Address: [address] [place] [phone] Director: [facility] with platelet and [id number] 17:23:00 Test Item Value Reference Range Interpretation Comments WBC (test code = See_Comment [Automated 6490-2) message] The system which generated this result [...] RAC) Organization Information: Site ID: RGA Name: [facility] Address: [address] [place] [address] Director: Maxx Mejia Lab Interpretation Abnormal (test code = 44331-9) [facility]ed[facility] [id number] 17:23:00 Test Item Value Reference Range Interpretation Comments Sedimentation rate 33 mm/h See_Comment H [Automat ed (test code = 4537-7) message ] The system which generated this result transmitted reference range : < OR = 20. The reference range was not used to interpret this result as normal/abnormal . RAC (test code = Performing RAC) Organization Information: Site ID: RGA Name: [employer] [facility] Lab Address: [address] [place], [place] [id number] Director: Maxx Mejia Lab Interpretation Abnormal (test code = 03115-2) [facility]anoUrinalysis, automated with [id number] 17:23:00 Test Item Value Reference Range Interpretation Comments Color, UA (test code DARK YELLOW YELLOW = 5778-6) Appearance (test CLEAR CLEAR code = 5767-9) Specific gravity, 1.001-1.035 urine (test code = 5811-5) pH, urine (test code 5.0-8.0 = 5803-2) Glucose, urine (test NEGATIVE NEGATIVE code = 25415-1) Bilirubin, UA (test NEGATIVE NEGATIVE Verified by code = 5770-3) repeat analys is. Ketones, UA (test TRACE NEGATIVE A code = 2514-8) Occult blood, urine NEGATIVE NEGATIVE (test code = 5794-3) Protein, UA (test TRACE NEGATIVE A code = 64260-3) Nitrite, UA (test NEGATIVE NEGATIVE code = [...] code = NONE SEEN See_Comment [Autom ated 42173-0) message] The system which generated this result transmitted reference range : < OR = 2 /HPF. The reference range was not used to interpr et this result as normal/abnormal . Squamous epithelial 0-5 See_Comment [Automa tisha cells, UA (test code message ] The = 44724-9) system which generated this result transmitted reference [...] = Performing RAC) Organization Information: Site ID: [facility] Name: [facility] Lab Address: [address] [place] [phone] Director: Maxx Mejia Lab Interpretation Abnormal (test code = 36118-6) [facility] protein/creatinine ratio, [id number] 17:23:00 Test Item Value Reference Range Interpretation [...] RAC) Organization Information: Site ID: RGA Name: [facility] Address: [address] [place] [address] Director: Maxx Mejia Lab Interpretation Abnormal (test code = 62803-5) [facility] CenterDouble-Stranded DNA (dsDNA) antibodies, [id number] 17:23:00 Test Item Value Reference Range Interpretation Comments dsDNA Ab, Crithidia NEGATIVE NEGATIVE ([facility]) (test code = 6457-6) RAC (test code = RAC) Performing Organization Information: Site ID: EZ Name: [facility], Address: [address] [place] [address] Director: Katrin Curran MD,PhD,TYESHA [facility]anoCreatine kinase, total (CPK)2020-10-15 09:53:00 Test Item Value Reference Range Interpretation Comments Creatine kinase (test 81 U/L 44-196 code = 2157-6) RAC (test code = RAC) Performing Organization Information: Site ID: [facility] Name: [facility] Address: [address] [place] [address] Director: Maxx Ontiveros [facility] CenterComplement activity, [id number] 09:53:00 Test Item Value Reference Range Interpretation Comments Complement activity, >60 31-60 H total (test code = 4532-8) RAC (test code = RAC) Performing Organization Information: Site ID: EZ Name: [facility], Address: [address] [place] [address] Director: Katrin Curran MD,PhD,TYESHA Lab Interpretation (test Abnormal code = 24337-3) [facility] HospitalRheumatoid [id number] 09:53:00 Test Item Value Reference Range Interpretation Comments Rheumatoid factor <14 See_Comment [Automate d (test code = message] The 61816-8) system which generated this result transmit tisha reference range : <14 IU/mL. The reference range was not used to interpret this result as normal/abnormal . RAC (test code = Performing RAC) Organization Information: Site ID: A Name: [facility] Address: [address] [place] [address] Director: Maxx Mejia [facility] PlanoCardiolipin [id number] 09:53:00 Test Item Value Reference Interpretation Comments Range Cardiolipin IgA <11 APL Value Inter pretation (test code = ----- --------- ----- 5076-5) < or = 11 Negat marck 12 - 20 Indeter minate 21 - 80 Low to Medium Positive >80 Hi gh Positive Cardiolipin IgG <14 GPL Value Inter pretation (test code = ----- --------- ----- 3181-5) < or = 14 Negat marck 15 - 20 Indetermin ate 21 - 80 Low to Med ium Positive >80 Hi gh Positive Cardiolipin IgM <12 MPL Value Inter pretation (test code = ----- --------- ----- 3182-3) < or = 12 Negat marck 13 - 20 Indetermin ate 21 - 80 Low to Med ium Positive >80 Hi gh Positive The antiphospholipi d antibody syndro me (APS) is a clinical-pathol ogic correlation robbin t includes a clin ical event (e.g. thrombosis, pre gnancy loss, thrombocytopeni a) and persistent posi tive antiphospholipi d antibodies (IgM or IgG MARCELLO >40 MPL /GPL, IgM or IgG anti-b4BSQmzsfk odies or a lupus anticoagulant). International consensus guide lines for APS suggest waiting at leas t 12 weeks before retesting to co nfirm antibody persis tence. The Systemic Harley pus International Collaborating C linics immunological classification criteria for [facility] lupus erythemat osus (SLE) include t esting for isotype IgA , which has yet t o be incorporated in to APS criteria. Low l evel antiphospholipi d antibodies may sometimes be de tected in the setting of infection, drug therapy or agin gLeta CHOWDHURY (test code = Performing RAC) Organization Information: Site ID: IG Name: [facility] Address: [address] [facility] [place] [address] Director: Dr. Maxx Mejia [facility] anticoagulant [id number] 09:53:00 Test Item Value Reference Interpretation Comments Range Lupus anticoagulant SEE NOTE NOT DETECTED A Lupus (test code = Anticoagulant i s 48355-6) NOT DETECTED. T his interpretation is basedon the following test results: PTT lupus See_Comment For more anticoagulant (test informat ion on this code = 29129-7) test, go to:http://argentina linder .[employer].c om/faq/JBI90t0( This link is being provided for informational/e duca tionalpurposes only.) [Automat ed message] The sy stem which generated this [...] RAC) Organization Information: Site ID: EZ Name: [employer], Address: [address] [place] [address] Director: Katrin Curran MD,PhD,TYESHA [facility] PlanoVitamin D 25 hydroxy [id number] 09:53:00 Test Item Value Reference Range Interpretation Comments Vitamin D, 25-hydroxy 25 ng/mL 30-100 L Vitami n D Status (test code = 1988-) 25-OH V itamin D: Deficiency: <20 ng/mLInsufficie n cy: 20 - 29 ng/mLOptimal: > or = 30 ng/mL For 25-OH Vitamin D testing on patients on D2-supplementat i on and patients for whom quantitation of D2 and D3 fractions is required, the QuestAssureD(TM ) 25-OH VIT D, (D2,D3), LC/MS/MS is recommended: order code 9288 8 (patients >2yrs).See Note 1 Note 1 For additional information, please refer to http://tr rosales .c6 Software CorporationDiagnosti zwoor.com/faq/FAQ19 9 (This link is being provided for informational/e d ucational purposes only.) RAC (test code = RAC) Performing Organization Information: Site ID: RGA Name: [facility] Lab Address: [address] [place] [address] Director: Maxx Mejia Lab Interpretation Abnormal (test code = 81331-3) [facility] PlanoAldolase, [id number] 09:53:00 Test Item Value Reference Range Interpretation Comments Aldolase (test 3.9 U/L See_Comment [Automated code = 1761-6) message] The system which generated this result transmit tisha reference range : < OR = 8.1. The reference range was not used to interpret this result as normal/abnormal . RAC (test code = Performing RAC) Organization Information: Site ID: EZ Name: [employer], Address: [address] [place] [phone] Director: Katrin Curran MD,PhD,TYESHA [facility] PlanoCyclic citrullinated peptide antibody, [id number] 09:53:00 Test Item Value Reference Range Interpretation Comments Cyclic citrullin <16 UNITS Reference peptide Ab (test RangeNegati ve: code = 41771-1) <20Weak Posi tive: 20-39Moderate Positive: 40-59Strong Positive: >59 RAC (test code = Performing RAC) Organization Information: Site ID: IG Name: [facility] Address: [address] [place] [address] Director: Dr. Maxx Mejia [facility] HospitalSSA/SSB [id number] 09:53:00 Test Item Value Reference Range Interpretation Comments Sjogren's SS-A <1.0 NEG See_Comment [Automated antibody (test message] The code = 99407-5) system which generated this result transmit tisha reference range : <1.0 NEG AI. Th e reference range was not used to interpret this result as normal/abnormal . Sjogren's SS-B <1.0 NEG See_Comment [Automated antibody (test message] The code = 61420-7) system which generated this result transmit tisha reference range : <1.0 NEG AI. Th e reference range was not used to interpret this result as normal/abnormal . RAC (test code = Performing RAC) Organization Information: Site ID: IG Name: [facility] Address: [address] [place] [address] Director: Dr. Maxx Mejia [facility] PlanoANTINUCLEAR ANTIBODIES TITER AND [id number] 09:53:00 Test Item Value Reference Interpretation Comments Range DAO titer (test 1:320 titer H Reference R olivia code = 5048-4) <1:40 Negativ e 1:40-1:80 Low Antibody Level >1:80 Elevated Antibo dy Level DAO pattern (test Nuclear, Speckled A Speck led pattern is code = 13927-6) associated w ith mixed connectivetissu e disease (MCTD), systemic lupus erythematosus(S LE), Sjogren's syndr ome, dermatomyositis , and systemic sclerosis/polym yosit is overlap. AC-2,4,5,29: Speckled International Consensus on AN A Patterns(https: //doi .org/10.1515/cc lm-20 18-0052) RAC (test code = Performing RAC) Organization Information: Site ID: IG Name: [facility] Address: [address] [place] [address] Director: Dr. Maxx Mejia Lab Interpretation Abnormal (test code = 91569-2) [facility] 09:53:00 Test Item Value Reference Interpretation Comments Range dsDNA Ab, IU/mL H IU/mL Interpre tation < Immunoassay (test or = 4 Neg ative 5-9 code = 5130-0) Indeterminate > or = 10 Positive Mireles antibody <1.0 NEG See_Comment [Automated m essage] (test code = The system [facility] 38164-0) generated this result transmitted ref erence range: <1.0 NEG AI. The reference range was not used to interpr et this result as normal/abnormal . NETWORK CABLE INSTALLER-SM interp <1.0 NEG See_Comment [Automated me ssage] (test code = The system [facility] 87756-5) generated this result transmitted ref erence range: <1.0 NEG AI. The reference range was not used to interpr et this result as normal/abnormal . Ribonucleic <1.0 NEG See_Comment [Automated mes nik] antibody (NETWORK CABLE INSTALLER) The system [facility] (test code = generated this result 39475-0) transmitted ref erence range: <1.0 NEG AI. The reference range was not used to interpr et this result as normal/abnormal . CHROMATIN <1.0 NEG See_Comment ANTIBODY PREVA LENCE IN (NUCLEOSOMAL) TIER 1 Double stranded ANTIBODY (test DNA (dsDNA) a ntibodies code = 57740-7) are present in57% to 62% systemic harley pus erythematosus ( SLE), 10% to43% polym yositis, 11% to 20% Sjog anibal's syndrome, 8% sy stemic sclerosis (scle roderma) and 0% to 8% mixedconnective tissue disease (MCTD). Chromatin antib ivelisse is present in >80% MCTD, 37% to 73% SLE, 14% systemic sclero sis, 12% Sjogren's syndr omeand 8% polymyositis . Ribonucleoprote in (NETWORK CABLE INSTALLER) antibodies are to NETWORK CABLE INSTALLER A and/or NETWORK CABLE INSTALLER 68kD proteins; antib odies to one or both are present in >80% MCTD, 2 2% to 48% SLE, 14% systemicscleros is, 12% Sjogren's and 8 % polymyositis. S m/NETWORK CABLE INSTALLER antibodies are directed to epitopes for med vishal complex of Sm a nd NETWORK CABLE INSTALLER; antibodies to t he Sm/RNPcomplex a re present in 54% to 94% MCTD, 30% SLE, 4%systemic scle rosis, and 9% Sjogren' s and polymyositis. S m antibody is pre sent in 20% to 30% SLE, 8% MCTD,10% polymy ositis, 0% systemic scl erosis and 4%Sjogren's syndrome. Doubl e stranded DNA, Chromatin, Ribonucleoprote in, Sm/NETWORK CABLE INSTALLER complex and Sm antibodies are present in <2% of annmarie l blood donors. The Dani mark does not rule o ut autoimmune diseasecharacte rized by other autoantib ivelisse specificities s uchas rheumatoid arth ritis, autoimmune hepa titis, primarybiliary cirrhosis, auto immune thyroiditis, Shawmut'sdiseas e, pernicious anem ia, autoimmune neuropathies,va sculitis , celiac diseas e and bullous disease .Please contact your lo eli [employer] Diagnosti cs laboratoryif yo u are interested in additional test ing. [Automated mess age] The system which ge nerated this result tra nsmitted reference range : <1.0 NEG AI. The ref erence range was not u sed to interpret this result as normal/abnor mal. RAC (test code = Performing RAC) Organization Information: Site ID: IG [facility]: [facility] Address: [address] [place] [address] Director: Dr. Maxx Mejia Lab Interpretation Abnormal (test code = 28061-1) [facility] PlanoRibonucleic antibody (NETWORK CABLE INSTALLER)2020-10-15 09:53:00 Test Item Value Reference Range Interpretation Comments Ribonucleic <1.0 NEG See_Comment [Automated antibody (NETWORK CABLE INSTALLER) message] The (test code = system which 42926-8) generated this result transmitted reference range : <1.0 NEG AI. Th e reference range was not used to interpret this result as normal/abnormal . RAC (test code = Performing RAC) Organization Information: Site ID: IG Name: [facility] Address: [address] [place] [address] Director: Dr. Maxx Mejia [facility] reflex to [id number] 09:53:00 Test Item Value Reference Range Interpretation Comments TSH reflex to See_Comment [Automated FT4 (test code message] The system = 3016-3) which generated this result transmitted reference range : 0.40 - 4.50 mIU /L. The reference r olivia was not used to interpret this result as normal/abnormal . RAC (test code Performing = RAC) Organization Information: Site ID: RGA Name: [facility] Address: [address] [place] [phone] Director: Maxx Mejia [facility] CenterANA IFA, W/REFL TO TITER/PATTERN/[id number] 09:53:00 Test Item Value Reference Interpretation Comments Range DAO Screen (test POSITIVE NEGATIVE A DAO IFA is a first code = 37591-5) line screen for detecting thepr esence of up to approx imately 150 autoantibod ies invarious autoi mmune diseases. A pos itive DAO IFA resulti s suggestive of autoimmune dise ase and reflexes to tit er, pattern and the 3 tiered Multiple x 11 AntibodyCascade . Testing in the [place] stops at the firstpositive r esult, and does not pr eclude additionalposit marck results. Furthe r laboratory test ing may beconsidered if clinically yamile cated. For additional information, pl ease refer tohttp://educat ion.[facility] stDiagnostics.c om/faq/ GMI302(This diane k is being provided for informational/e ducatio nal purposes on ly.) RAC (test code = Performing RAC) Organization Information: Site ID: IG Name: [facility] Address: [address] [place] [address], [place] [address] Director: Dr. Maxx Mejia Lab Interpretation Abnormal (test code = 10146-0) [facility] HospitalANCA Screen with MPO and PR3, with Reflex to ANCA Titer 2020-10-15 09:53:00 Test Item Value Reference Interpretation Comments Range ANCA screen (test NEGATIVE NEGATIVE ANCA Scre en includes code = 81267-4) evaluation f or p-ANCA, c-ANCA andatypical p-A [...] = t Detected> or = 1.0 AI 90881-8) Antibody Detect ed Autoantibodies to myeloperoxidase (MPO) [...] present in active disease. [Automated message] The [employer] stem which generated this result transmitted ref erence range: <1.0 AI. The re ference range was not used to interpret this result as normal/abnormal . AK-3 (protease) <1.0 See_Commen <1.0 AI No Antibody (test code = t Detected> or = 1.0 AI 12105-4) Antibody Detect ed Autoantibodies to proteinase-3 (P R-3) are accepted aschar acteristic for granulomatosis with polyangiitis (G PA,Sandor's), and are detecta ble in 95% of the histologica llyproven cases. The cyto plasmic IFA pattern, (c-ANC A), isbased largely on auto antibody to AK-3 which serv es as theprimary anti gen. These autoantibodies are present in activedisease. [Automated message] The sy stem which generated this result transmitted ref erence range: <1.0 AI. The reference range was not u sed to interpret this result as normal/abnormal . RAC (test code = Performing RAC) Organization Information: Site ID: EZ Name: [employer], Address: [address] [place] [address] Director: Katrin Curran MD,PhD,TYESHA [facility] and Sm/NETWORK CABLE INSTALLER [id number] 09:53:00 Test Item Value Reference Range Interpretation Comments Mireles antibody <1.0 NEG See_Comment [Automated (test code = message] The 35416-0) system which generated this result transmit tisha reference range : <1.0 NEG AI. Th e reference range was not used to interpret this result as normal/abnormal . NETWORK CABLE INSTALLER-SM interp <1.0 NEG See_Comment [Automated (test code = message] The 19378-0) system which generated this result transmit tisha reference range : <1.0 NEG AI. Th e reference range was not used to interpret this result as normal/abnormal . RAC (test code = Performing RAC) Organization Information: Site ID: IG Name: [facility] Address: [address] [place] [address] Director: Dr. Maxx Mejia [facility] PlanoBeta-2 glycoprotein 1 antibodies (IgG, IgA, IgM)2020-10-15 09:53:00 Test Item Value Reference Interpretation Comments Range Beta-2 <9 See_Comment [Automated Reply.io] The glycoprotein 1 system which generated this antibody, IgG result transmi tted reference (test code = range: < OR = 2 0 SGU. The 49047-7) reference range was not used to interpret th is result as normal/abnormal . Beta-2 <9 See_Comment [Automated Reply.io] The glycoprotein 1 system which generated this antibody, IgM result transmi tted reference (test code = range: < OR = 2 0 SMU. The 37912-0) reference range was not used to interpret th is result as normal/abnormal . Beta-2 <9 See_Comment The antiphospho lipid antibody glycoprotein 1 syndrome (APS ) gucci antibody, IgA clinical-patho logic (test code = correlation robbin t includesa 40590-9) clinical event (e.g. thrombosis, pre gnancyloss, thrombocytopeni a) and persistent positiveantipho spholipid antibodies (IgM or IgG MARCELLO>40 MPL/GPL,IgM or IgG anti-b2GPI antibodies ora lupus anticoagulant). International consensusguidel gary for APS suggest waiting at least 12weeks before retesting to confirm antibod ypersistence. [facility] llaborating Clinics immunologicalcl assification criteria for [facility] lupuserythemato alfonso (SLE) include testing for isotypeIgA, whi ch has yet to be incorporated into APScriteria. Lo w level antiphospholipi d antibodiesmay s ometimes be detected in the setting ofinfection, dr ug therapy or aging. [Automat ed message] The system whic h generated this result tra nsmitted reference range : < OR = 20 SHO. The refere nce range was not used to int erpret this result as annmarie l/abnormal. RAC (test code Performing = RAC) Organization Information: Site ID: EZ Name: [employer], Address: [address] [place] [address] Director: Katrin Curran MD,PhD,TYESHA [facility] HospitalDirect antiglobulin test (DENTON)2020-10-15 09:53:00 Test Item Value Reference Range Interpretation Comments Direct antiglobulin NEGATIVE NEGATIVE test (DENTON) (test code = 1007-4) RAC (test code = RAC) Performing Organization Information: Site ID: IG Name: [facility] Address: [address] [place] [address] Director: Dr. Maxx Ontiveros [facility] CenterDouble-Stranded DNA (dsDNA) Antibodies, [id number] 09:53:00 Test Item Value Reference Interpretation Comments Range dsDNA Ab, IU/mL H IU/mL Immunoassay (test Interpreta tion < or code = 5130-0) = 4 Negative 5-9 Indeterminate > or = 10 Positive RAC (test code = Performing RAC) Organization Information: Site ID: IG Name: [facility] Address: [address] [place] [address] Director: Dr. Maxx Mejia Lab Interpretation Abnormal (test code = 65934-3) [facility]anoCreatine kinase, total (CPK)2020-10-15 09:53:00 Test Item Value Reference Range Interpretation Comments Creatine kinase (test 81 U/L 44-196 code = 2157-6) RAC (test code = RAC) Performing Organization Information: Site ID: RGA Name: [facility] Address: [address] [place] [address] Director: Maxx Ontiveros [facility] CenterComplement activity, [id number] 09:53:00 Test Item Value Reference Range Interpretation Comments Complement activity, >60 31-60 H total (test code = 4532-8) RAC (test code = RAC) Performing Organization Information: Site ID: EZ Name: [employer], Address: [address] [place] [phone] Director: Katrin Curran MD,PhD,TYESHA Lab Interpretation (test Abnormal code = 81007-6) [facility] HospitalRheumatoid [id number] 09:53:00 Test Item Value Reference Range Interpretation Comments Rheumatoid factor <14 See_Comment [Automate d (test code = message] The 15053-4) system which generated this result transmit tisha reference range : <14 IU/mL. The reference range was not used to interpret this result as normal/abnormal . RAC (test code = Performing RAC) Organization Information: Site ID: RGA Name: [facility] Address: [address] [place] [address] Director: Maxx Ontiveros HospitalCardiolipin [id number] 09:53:00 Test Item Value Reference Interpretation Comments Range Cardiolipin IgA <11 APL Value Inter pretation (test code = ----- --------- ----- 5076-5) < or = 11 Negat marck 12 - 20 Indetermin ate 21 - 80 Low to Me dium Positive >80 Hi gh Positive Cardiolipin IgG <14 GPL Value Inter pretation (test code = ----- --------- ----- 3181-5) < or = 14 Negat marck 15 - 20 Indetermin ate 21 - 80 Low to Med ium Positive >80 Hi gh Positive Cardiolipin IgM <12 MPL Value Inter pretation (test code = ----- --------- ----- 3182-3) < or = 12 Negat marck 13 - 20 Indetermin ate 21 - 80 Low to Med ium Positive >80 Hi gh Positive The antiphospholipi d antibody syndro me (APS) is a clinical-pathol ogic correlation robbin t includes a clin ical event (e.g. thrombosis, pre gnancy loss, thrombocytopeni a) and persistent posi tive antiphospholipi d antibodies (IgM or IgG MARCELLO >40 MPL /GPL, IgM or IgG anti-v2MJKaiqfo odies or a lupus anticoagulant). International consensus guide lines for APS suggest waiting at leas t 12 weeks before retesting to co nfirm antibody persis tence. The [facility] lintabitha immunological classification criteria for [facility] lupus erythemat osus (SLE) include t esting for isotype IgA , which has yet t o be incorporated in to APS criteria. Low l evel antiphospholipi d antibodies may sometimes be de tected in the setting of infection, drug therapy or agin g. RAC (test code = Performing RAC) Organization Information: Site ID: IG Name: [facility] Address: [address] [place] [address] Director: Dr. Maxx Mejia [facility] PlanoLupus anticoagulant [id number] 09:53:00 Test Item Value Reference Interpretation Comments Range Lupus anticoagulant SEE NOTE NOT DETECTED A Lupus (test code = Anticoagulant i s 39047-1) NOT DETECTED. T his interpretation is basedon the following test results: PTT lupus See_Comment For more anticoagulant (test informat ion on this code = 16220-6) test, go to:http://argentina linder .[employer] om/faq/JEM91r8( This link is being provided for informational/e duca tionalpurposes only.) [Automat ed message] The sy stem which generated this [...] RAC) Organization Information: Site ID: EZ Name: [employer]Anyi [facility]cc[facility], Address: [address] [place] [address] Director: Katrin Curran MD,PhD,TYESHA [facility] PlanoVitamin D 25 hydroxy [id number] 09:53:00 Test Item Value Reference Range Interpretation Comments Vitamin D, 25-hydroxy 25 ng/mL 30-100 L Vitami n D Status (test code = 1988-) 25-OH V itamin D: Deficiency: <20 ng/mLInsufficie n cy: 20 - 29 ng/mLOptimal: > or = 30 ng/mL For 25-OH Vitamin D testing on patients on D2-supplementat i on and patients for whom quantitation of D2 and D3 fractions is required, the QuestAssureD(TM ) 25-OH VIT D, (D2,D3), LC/MS/MS is recommended: order code 9288 8 (patients >2yrs).See Note 1 Note 1 For additional information, please refer to http://tr rosales fl3ur/faq/FAQ19 9 (This link is being provided for informational/e d ucational purposes only.) RAC (test code = RAC) Performing Organization Information: Site ID: RGA Name: [facility] Lab Address: [address] [place] [address] Director: Maxx Mejia Lab Interpretation Abnormal (test code = 25890-7) [facility] PlanoAldolase, [id number] 09:53:00 Test Item Value Reference Range Interpretation Comments Aldolase (test 3.9 U/L See_Comment [Automated code = 1761-6) message] The system which generated this result transmit tisha reference range : < OR = 8.1. The reference range was not used to interpret this result as normal/abnormal . RAC (test code = Performing RAC) Organization Information: Site ID: EZ Name: [employer], Address: [address] [place] [address] Director: Katrin Curran MD,PhD,TYESHA [facility] PlanoCyclic citrullinated peptide antibody, [id number] 09:53:00 Test Item Value Reference Range Interpretation Comments Cyclic citrullin <16 UNITS Reference peptide Ab (test RangeNegati ve: code = 32431-5) <20Weak Posi tive: 20-39Moderate Positive: 40-59Strong Positive: >59 RAC (test code = Performing RAC) Organization Information: Site ID: IG Name: [facility] Address: [address] [place] [address] Director: Dr. Maxx Mejia [facility] HospitalSSA/SSB [id number] 09:53:00 Test Item Value Reference Range Interpretation Comments Sjogren's SS-A <1.0 NEG See_Comment [Automated antibody (test message] The code = 58164-1) system which generated this result transmit tisha reference range : <1.0 NEG AI. Th e reference range was not used to interpret this result as normal/abnormal . Sjogren's SS-B <1.0 NEG See_Comment [Automated antibody (test message] The code = 68630-1) system which generated this result transmit tisha reference range : <1.0 NEG AI. Th e reference range was not used to interpret this result as normal/abnormal . RAC (test code = Performing RAC) Organization Information: Site ID: IG Name: [facility] Address: [address] [place] [address] Director: Dr. Maxx Mejia [facility] PlanoANTINUCLEAR ANTIBODIES TITER AND [id number] 09:53:00 Test Item Value Reference Interpretation Comments Range DAO titer (test 1:320 titer H Reference R olivia code = 5048-4) <1:40 Negati ve 1:40-1:80 Low Antibody Level >1:80 Elevated Antibo dy Level DAO pattern (test Nuclear, Speckled A Speck led pattern is code = 17132-9) associated w ith mixed connectivetissu e disease (MCTD), systemic lupus erythematosus(S LE), Sjogren's syndr ome, dermatomyositis , and systemic sclerosis/polym yosit is overlap. AC-2,4,5,29: Speckled International Consensus on AN A Patterns(https: //doi .org/10.1515/cc lm-20 18-0052) RAC (test code = Performing RAC) Organization Information: Site ID: IG Name: [facility] Lab Address: [address] [place] [address], [place] [address] Director: Dr. Maxx Mejia Lab Interpretation Abnormal (test code = 68448-2) [facility] 09:53:00 Test Item Value Reference Interpretation Comments Range dsDNA Ab, IU/mL H IU/mL Interpre tation < Immunoassay (test or = 4 Neg ative 5-9 code = 5130-0) Indeterminate > or = 10 Positive Mireles antibody <1.0 NEG See_Comment [Automated m essage] (test code = [place] [address]-5) generated this result transmitted ref erence range: <1.0 NEG AI. The reference range was not used to interpr et this result as normal/abnormal . NETWORK CABLE INSTALLER-SM interp <1.0 NEG See_Comment [Automated me ssage] (test code = [place] 614[address]-0) generated this result transmitted ref erence range: <1.0 NEG AI. The reference range was not used to interpr et this result as normal/abnormal . Ribonucleic <1.0 NEG See_Comment [Automated mes nik] antibody (NETWORK CABLE INSTALLER) The system [facility] (test code = generated this result 95638-5) transmitted ref erence range: <1.0 NEG AI. The reference range was not used to interpr et this result as normal/abnormal . CHROMATIN <1.0 NEG See_Comment ANTIBODY PREVA LENCE IN (NUCLEOSOMAL) TIER 1 Double stranded ANTIBODY (test DNA (dsDNA) a ntibodies code = 06315-8) are present in57% to 62% systemic harley pus erythematosus ( SLE), 10% to43% polym yositis, 11% to 20% Sjog anibal's syndrome, 8% sy stemic sclerosis (scle roderma) and 0% to 8% mixedconnective tissue disease (MCTD). Chromatin antib ivelisse is present in >80% MCTD, 37% to 73% SLE, 14% systemic sclero sis, 12% Sjogren's syndr omeand 8% polymyositis . Ribonucleoprote in (NETWORK CABLE INSTALLER) antibodies are to NETWORK CABLE INSTALLER A and/or NETWORK CABLE INSTALLER 68kD proteins; antib odies to one or both are present in >80% MCTD, 2 2% to 48% SLE, 14% systemicscleros is, 12% Sjogren's and 8 % polymyositis. S m/NETWORK CABLE INSTALLER antibodies are directed to epitopes for med vishal complex of Sm a nd NETWORK CABLE INSTALLER; antibodies to t he Sm/RNPcomplex a re present in 54% to 94% MCTD, 30% SLE, 4%systemic scle rosis, and 9% Sjogren' s and polymyositis. S m antibody is pre sent in 20% to 30% SLE, 8% MCTD,10% polymy ositis, 0% systemic scl erosis and 4%Sjogren's syndrome. Doubl e stranded DNA, Chromatin, Ribonucleoprote in, Sm/NETWORK CABLE INSTALLER complex and Sm antibodies are present in <2% of annmarie l blood donors. The Dani mark does not rule o ut autoimmune diseasecharacte rized by other autoantib ivelisse specificities s uchas rheumatoid arth ritis, autoimmune hepa titis, primarybiliary cirrhosis, auto immune thyroiditis, Shawmut'sdiseas e, pernicious anem ia, autoimmune neuropathies,va sculitis , celiac diseas e and bullous disease .Please contact your lo eli SP3Hti laboratoryif yo u are interested in additional test ing. [Automated mess age] The system which ge nerated this result tra nsmitted reference range : <1.0 NEG AI. The ref erence range was not u sed to interpret this result as normal/abnor mal. RAC (test code = Performing RAC) Organization Information: Site ID: IG Name: [facility] Address: [address] [place] [address] Director: Dr. Maxx Mejia Lab Interpretation Abnormal (test code = 07894-4) [facility] PlanoRibonucleic antibody (NETWORK CABLE INSTALLER)2020-10-15 09:53:00 Test Item Value Reference Range Interpretation Comments Ribonucleic <1.0 NEG See_Comment [Automated antibody (NETWORK CABLE INSTALLER) message] The (test code = system which 10278-2) generated this result transmitted reference range : <1.0 NEG AI. Th e reference range was not used to interpret this result as normal/abnormal . RAC (test code = Performing RAC) Organization Information: Site ID: IG Name: [facility] Address: [address] [place] [address] Director: Dr. Maxx Mejia [facility] reflex to [id number] 09:53:00 Test Item Value Reference Range Interpretation Comments TSH reflex to See_Comment [Automated FT4 (test code message] The system = 3016-3) which generated this result transmitted reference range : 0.40 - 4.50 mIU /L. The reference r olivia was not used to interpret this result as normal/abnormal . RAC (test code Performing = RAC) Organization Information: Site ID: RGA Name: [facility] Address: [address] [place] [address] Director: Maxx Mejia [facility] IFA, W/REFL TO TITER/PATTERN/[id number] 09:53:00 Test Item Value Reference Interpretation Comments Range DAO Screen (test POSITIVE NEGATIVE A DAO IFA is a first code = 65034-0) line screen for detecting thepr esence of up to approx imately 150 autoantibod ies invarious autoi mmune diseases. A pos itive DAO IFA resulti s suggestive of autoimmune dise ase and reflexes to tit er, pattern and the 3 tiered Multiple x 11 AntibodyCascade . Testing in the [place] stops at the firstpositive r esult, and does not pr eclude additionalposit marck results. Furthe r laboratory test ing may beconsidered if clinically yamile cated. For additional information, pl ease refer tohttp://educat ion.[facility] stDiagnostics.c om/faq/ WMD549(This diane k is being provided for informational/e ducatio nal purposes on ly.) RAC (test code = Performing RAC) Organization Information: Site ID: IG Name: [facility] Lab Address: [address] [place] [address] Director: Dr. Maxx Mejia Lab Interpretation Abnormal (test code = 15257-2) [facility] HospitalANCA Screen with MPO and PR3, with Reflex to ANCA Titer 2020-10-15 09:53:00 Test Item Value Reference Interpretation Comments Range ANCA screen (test NEGATIVE NEGATIVE ANCA Scre en includes code = 97849-4) evaluation f or p-ANCA, c-ANCA andatypical p-A [...] = t Detected> or = 1.0 AI 40506-2) Antibody Detect ed Autoantibodies to myeloperoxidase (MPO) [...] to interpret this result as normal/abnormal . AK-3 (protease) <1.0 See_Commen <1.0 AI No Antibody (test code = t Detected> or = 1.0 AI 90610-9) Antibody Detect ed Autoantibodies to proteinase-3 (P R-3) are accepted aschar acteristic for granulomatosis with polyangiitis (G PA,Sandor's), and are detecta ble in 95% of the histologica llyproven cases. The cyto plasmic IFA pattern, (c-ANC A), isbased largely on auto antibody to AK-3 which serv es as theprimary anti gen. These autoantibodies are present in activedisease. [Automated message] The sy stem which generated this result transmitted ref erence range: <1.0 AI. The reference range was not u sed to interpret this result as normal/abnormal . RAC (test code = Performing RAC) Organization Information: Site ID: EZ Name: [employer], Address: [address] [place] [address] Director: Katrin Curran MD,PhD,TYESHA [facility] HospitalSm and Sm/NETWORK CABLE INSTALLER [id number] 09:53:00 Test Item Value Reference Range Interpretation Comments Mireles antibody <1.0 NEG See_Comment [Automated (test code = message] The 13557-0) system which generated this result transmit tisha reference range : <1.0 NEG AI. Th e reference range was not used to interpret this result as normal/abnormal . NETWORK CABLE INSTALLER-SM interp <1.0 NEG See_Comment [Automated (test code = message] The 74380-7) system which generated this result transmit tisha reference range : <1.0 NEG AI. Th e reference range was not used to interpret this result as normal/abnormal . RAC (test code = Performing RAC) Organization Information: Site ID: IG Name: [facility] Address: [address] [facility] [place], [place] [address] Director: Dr. Maxx Mejia [facility] PlanoBeta-2 glycoprotein 1 antibodies (IgG, IgA, IgM)2020-10-15 09:53:00 Test Item Value Reference Interpretation Comments Range Beta-2 <9 See_Comment [Automated mes nik] The glycoprotein 1 system which generated this antibody, IgG result transmi tted reference (test code = range: < OR = 2 0 SGU. The 93048-7) reference range was not used to interpret th is result as normal/abnormal . Beta-2 <9 See_Comment [Automated mes nik] The glycoprotein 1 system which generated this antibody, IgM result transmi tted reference (test code = range: < OR = 2 0 SMU. The 98497-7) reference range was not used to interpret th is result as normal/abnormal . Beta-2 <9 See_Comment The antiphospho lipid antibody glycoprotein 1 syndrome (APS ) gucci antibody, IgA clinical-patho logic (test code = correlation robbin t includesa 47242-6) clinical event (e.g. thrombosis, pre gnancyloss, thrombocytopeni a) and persistent positiveantipho spholipid antibodies (IgM or IgG MARCELLO>40 MPL/GPL,IgM or IgG anti-b2GPI antibodies ora lupus anticoagulant). International consensusguidel gary for APS suggest waiting at least 12weeks before retesting to confirm antibod ypersistence. [facility] llaborating [facility] immunologicalcl assification criteria for [facility] lupuserythemato alfonso (SLE) include testing for isotypeIgA, whi ch has yet to be incorporated into APScriteria. Lo w level antiphospholipi d antibodiesmay s ometimes be detected in the setting ofinfection, dr ug therapy or aging. [Automat ed message] The system whic h generated this result tra nsmitted reference range : < OR = 20 SHO. The refere nce range was not used to int erpret this result as annmarie l/abnormal. RAC (test code Performing = RAC) Organization Information: Site ID: EZ Name: [employer], Address: [address] [place] [address] Director: Katrin Curran MD,PhD,TYESHA [facility]anoDirect antiglobulin test (DENTON)2020-10-15 09:53:00 Test Item Value Reference Range Interpretation Comments Direct antiglobulin NEGATIVE NEGATIVE test (DENTON) (test code = 1007-4) RAC (test code = RAC) Performing Organization Information: Site ID: IG Name: [facility] Address: [address] [place] [address] Director: Dr. Maxx Mejia [facility] PlanoDouble-Stranded DNA (dsDNA) Antibodies, [id number] 09:53:00 Test Item Value Reference Interpretation Comments Range dsDNA Ab, IU/mL H IU/mL Immunoassay (test Interpreta tion < or code = 5130-0) = 4 Negative 5-9 Indeterminate > or = 10 Positive RAC (test code = Performing RAC) Organization Information: Site ID: IG Name: [facility] Lab Address: [address] [place] [address] Director: Dr. Maxx Mejia Lab Interpretation Abnormal (test code = 44978-2) [facility] Pla[id number] 09:53:00InterpretationComment: dsDNA antibody is frequently positive in patients with systemic lupus erythematosus; however, it may be positive in a lesser percentage of patients with rheumatoidarthritis and other connective tissue disease. Apositive result at this stage of testing stops further testing, and does not preclude additional positiveantibodies. Clinical correlation is required to assess the need for testing additional analytes. TheSedge.orgNOVANT HEALTH / NHRMCJANEL IISaint [facility] Organization Information: SiteID: IG Name: [facility] Address: [address] [place] [address] Director: Dr. Maxx [facility]iaTexas [facility] [id number] 09:53:00InterpretationComment: dsDNA antibody is frequently positive in patients with systemic lupus erythematosus; however, it may be positive in a lesser percentage of patients with rheumatoidarthritis and other connective tissue disease. Apositive result at this stage of testing stops further testing, and does not preclude additional positiveantibodies. Clinical correlation is required to assess the need for testing additional analytes. TheSedge.orgNOVANT HEALTH / NHRMCJANEL IICarondelet St. Joseph'S Hospitalformin Organization Information: SiteID: IG Name: [facility] Address: [address] [facility] [place] [address] Director: Dr. [facility], total and free 2020-10-05 23:08:00 Test Item Value Reference Interpretation Comments Range PSA (test code = 6.0 ng/mL See_Comment H [Automated message] 9027-1) The system [employer] generated this result transmitted ref erence range: < OR = 4 .0. The reference range was not used to int erpret this result as normal/abnormal . PSA, free (test 0.7 ng/mL code = 84851-2) PSA, free percent See_Comment L PSA(ng/mL ) Free (test code = PSA(%) Estimate d(x) 90671-1) Probability of Cancer(as%)0-2. 5 (*) Approx. 12.6-4. 0(1) 0-27(2) 24(3)4. 1-10(4) 0-10 56 11-15 28 16-20 20 21-25 16 >or =26 8>10(+) N/A >50 References:(1)Lucie hargrove et al.:Urology 60: 469-474 (2002) (2)Catalona et al.:J.Urol 168: 922-925 (2001) Free PSA(%) Sensitiv ity(%) Specificity(%) < or = 25 85 19 < or = 30 93 9 (3)Lilia e t al.:KEM 277: 0290-2145 (1996 ) (4)Catalona et al.:KEM 279: 0375-3343 (1997 ) (x)These estima bonifacio vary with age, ethnicity, fami ly history and REED results.(*)The diagnostic usef ulness of % Free PSA h as not been establishe d in patients with t otal PSA below 2.6 ng/mL(+)In men with PSA above 10 ng /mL, prostate cancer risk is determined b y total PSA alone. The Total PSA value from this assay system is standardized ag ainst the equimolar P [...] ofdisea se. [Automated mess age] The system [employer] generated this result transmitted ref erence range: >25 % (c alc). The reference r olivia was not used to interpret this result as normal/abnor mal. RAC (test code = Performing RAC) Organization Information: Site ID: IG Name: [facility] Lab Address: [address] [place] [address] Director: Dr. Maxx Mejia Lab Interpretation Abnormal (test code = 35512-7) [facility] HospitalPSA, total and [id number] 23:08:00 Test Item Value Reference Interpretation Comments Range PSA (test code = 6.0 ng/mL See_Comment H [Automated message] 4147-6) The system [employer] generated this result transmitted ref erence range: < OR = 4 .0. The reference range was not used to int erpret this result as normal/abnormal . PSA, free (test 0.7 ng/mL code = 02949-5) PSA, free percent See_Comment L PSA(ng/mL ) Free (test code = PSA(%) Estimate d(x) 02625-9) Probability of Cancer(as%)0-2. 5 (*) Approx. 12.6-4. 0(1) 0-27(2) 24(3)4. 1-10(4) 0-10 56 11-15 28 16-20 20 21-25 16 >or =26 8>10(+) N/A >50 References:(1)Lucie hargrove et al.:Urology 60: 469-474 (2002) (2)Lilia et al.:J.Urol 168: 922-925 (2001) Free PSA(%) Sensitiv ity(%) Specificity(%) < or = 25 85 19 < or = 30 93 9 (3)Lilia e t al.:KEM 277: 8759-8377 (1996 ) (4)Lilia et al.:KEM 279: 3684-5367 (1998 ) (x)These estima bonifacio vary with age, ethnicity, fami ly history and REED results.(*)The diagnostic usef ulness of % Free PSA h as not been establishe d in patients with t otal PSA below 2.6 ng/mL(+)In men with PSA above 10 ng /mL, prostate cancer risk is determined b y total PSA alone. The Total PSA value from this assay system is standardized ag ainst the equimolar P SA standard. The t est result will be approximately 2 0% higher when com pared to the WHO-standardize d Total PSA (Siemens as say). Comparison of s erial PSA results agatha uld be interpreted wit h this fact in mind. P SA was performed using the Edgar Big Six[employer]oas say method. Values obtained from differentassay methods cannot be used interchangeably . PSAlevels, rega rdless of value, shoul d not be interpreteda s absolute eviden ce of the presence or absence ofdisea se. [Automated mess age] The system whic h generated this result transmitted ref erence range: >25 % (c alc). The reference r olivia was not used to interpret this result as normal/abnor mal. RAC (test code = Performing RAC) Organization Information: Site ID: IG Name: [facility] Address: [address] [place] [address] Director: Dr. Maxx Mejia Lab Interpretation Abnormal (test code = 57529-4) [facility] [id number] 23:32:00 Test Item Value Reference Interpretation Comments Range Vitamin B12 280 pg/mL 200-1100 Please Note: A lthough the (test code = reference range for 2132-01) [id number] is 2 00-1100 pg/mL, it has b een reported that between5 a nd 10% of patients with v alues between 200 and 400pg/m L may experience neur opsychiatric and hematologic abnormalities due to occult B 12 deficiency; les s than 1%of patients with v alues above 400 pg/mL will have symptoms. RAC (test Performing code = RAC) Organization Information: Site ID: RGA Name: [facility] Address: [address] [place] [address] Director: Maxx Mejia [facility] B1 [id number] 23:32:00 Test Item Value Reference Range Interpretation Comments Vitamin B1 14 nmol/L 8-30 Vitamin (test code = supplementation 99732-7) within 24 hours prior to blood draw m ay affect the accu racy of results. Thi s test was developed a nd its analytical performance characteristics have been determined by [employer]. It has not been cl eared or approved by theFDA. This as say has been valida tisha pursuant to the CLIA regulations and is used for clinic al purposes. RAC (test code Performing = RAC) Organization Information: Site ID: [facility]: [facility] Address: [address] [place] [address] Director: Rachid Ruiz M.D. [facility] E level, plasma or [id number] 23:32:00 Test Item Value Reference Range Interpretation Comments Alpha-tocoph mg/L Reference Rang e lorenzo mg/L 5.7-19.9 mg/L L evels (test code = of alpha-tocoph lorenzo <5 1823-4) mg/L are consis tent with Vitamin E deficiency in adults.Vitamin supplementation within 24 hours prior to blood draw may affect the accuracy of results. This t est was developed and i ts analytical perf ormance characteristics have been determined by [employer] . It has not been cl eared or approved by theFDA. This assay has been validated pursu ant to the CLIA regula tions and is used for clinical purpos es. Gamma-tocoph See_Comment This test was lorenzo mg/L developed and i ts (test code = analytical perf ormance 39543-9) characteristics have been determined by [employer] . It has not been cl eared or approved by theFDA. This assay has been validated pursu ant to the CLIA regula tions and is used for clinical purpos es. [Automated mess age] The system [employer] generated this result transmitted ref erence range: <4.4 mg/ L . The reference range was not used to int erpret this result as normal/abnormal . RAC (test Performing code = RAC) Organization Information: Site ID: [facility] Name: [facility] Address: [address] [place] [address] Director: Rachid Ruiz M.D. [facility]anoMethylmalonic acid, [id number] 23:32:00 Test Item Value Reference Interpretation Comments Range Methylmalonic 376 nmol/L 87-318 H This test was developed and acid (test code = its analyt ical 64389-3) performancechar acteristics have been deter mined by [facility]. It has not beencleared or approved by FDA. This assay has been validatedpursua nt to the CLIA regulation s and is used for clinicalpur poses. RAC (test code = Performing RAC) Organization Information: Site ID: EZ Name: [facility], Address: [address] [place] [address] Director: Katrin Curran MD,PhD,TYESHA Lab Abnormal Interpretation (test code = 20988-1) [facility] SCREEN W IFA W REFLEX TO [id number] 23:32:00 Test Item Value Reference Interpretation Comments Range DAO Screen (test POSITIVE NEGATIVE A DAO IFA is a first code = 33934-9) line screen for detecting thepresence of up to approximately 1 50 autoantibodies invarious autoi mmune diseases. A pos itive DAO IFA resulti s suggestive of autoimmune dise ase and reflexes to titer and pattern. Fu rther laboratory test ing may beconsidere d if clinically indicated. For additional information, pl ease refer tohttp://educat ion.[employer] .[employer]/ faq/KIR027(This link is being provid ed for informational/e ducat ional purposes only.) DAO titer (test 1:320 titer H Reference R olivia code = 5048-4) <1:40 Negativ e 1:40-1:80 Low Antibody Level >1:80 Elevated Antibo dy Level DAO pattern (test Nuclear, Speckled A Speck led pattern is code = 06904-3) associated w ith mixed connectivetissu e disease (MCTD), systemic lupus erythematosus(S LE), Sjogren's syndr ome, dermatomyositis , and systemic sclerosis/polym yosit is overlap. AC-2,4,5,29: Speckled International Consensus on AN A Patterns(https: //doi .org/10.1515/cc lm-20 18-0052) RAC (test code = Performing RAC) Organization Information: Site ID: IG Name: [facility] Address: [address] [place] [address] Director: Dr. Maxx Mejia Lab Interpretation Abnormal (test code = 22128-3) [facility] B12 [id number] 23:32:00 Test Item Value Reference Interpretation Comments Range Vitamin B12 280 pg/mL 200-1100 Please Note: A lthough the (test code = reference range for 2132-01) [id number] is 2 00-1100 pg/mL, it has b een reported that between5 a nd 10% of patients with v alues between 200 and 400pg/m L may experience neur opsychiatric and hematologic abnormalities due to occult B 12 deficiency; les s than 1%of patients with v alues above 400 pg/mL will have symptoms. RAC (test Performing code = RAC) Organization Information: Site ID: RGA Name: [facility] Address: [address] [place] [address] Director: Maxx Mejia [facility] B1 [id number] 23:32:00 Test Item Value Reference Range Interpretation Comments Vitamin B1 14 nmol/L 8-30 Vitamin (test code = supplementation 26855-7) within 24 hours prior to blood draw m ay affect the accu racy of results. Thi s test was developed a nd its analytical performance characteristics have been determined by [facility] . It has not been cl eared or approved by theA. This as say has been valida tisha pursuant to the CLIA regulations and is used for clinic al purposes. RAC (test code Performing = RAC) Organization Information: Site ID: SLI Name: [facility] Address: [address] [place] [address] Director: Rachid Ruiz M.D. [facility] E level, plasma or [id number] 23:32:00 Test Item Value Reference Range Interpretation Comments Alpha-tocoph mg/L Reference Rang e lorenzo mg/L 5.7-19.9 mg/L L sarah (test code = of alpha-tocoph lorenzo <5 1823-4) mg/L are consis tent with Vitamin E deficiency in adults.Vitamin supplementation within 24 hours prior to blood draw may affect the accuracy of results. This t est was developed and i ts analytical perf ormance characteristics have been determined by [employer]. It has not been cl eared or approved by theFDA. This assay has been validated pursu ant to the CLIA regula tions and is used for clinical purpos es. Gamma-tocoph See_Comment This test was lorenzo mg/L developed and i ts (test code = analytical perf ormance 81331-3) characteristics have been determined by [employer] . It has not been cl eared or approved by theFDA. This assay has been validated pursu ant to the CLIA regula tions and is used for clinical purpos es. [Automated mess age] The system [employer] generated this result transmitted ref erence range: <4.4 mg/ L . The reference range was not used to int erpret this result as normal/abnormal . RAC (test Performing code = RAC) Organization Information: Site ID: SLI [facility]: [facility] Address: [address] [place] [address] Director: Rachid Ruiz M.D. [facility]anoMethylmalonic acid, [id number] 23:32:00 Test Item Value Reference Interpretation Comments Range Methylmalonic 376 nmol/L 87-318 H This test was developed and acid (test code = its analyt ical 03980-5) performancechar acteristics have been deter mined by [employer] [facility]. It has not beencleared or approved by FDA. This assay has been validatedpursua nt to the CLIA regulation s and is used for clinicalpur poses. RAC (test code = Performing RAC) Organization Information: Site ID: EZ Name: [facility], Address: [address] [place] [address] Director: Katrin Curran MD,PhD,TYESHA Lab Abnormal Interpretation (test code = 75911-1) [facility] S[facility] W IFA W REFLEX TO [id number] 23:32:00 Test Item Value Reference Interpretation Comments Range DAO Screen (test POSITIVE NEGATIVE A DAO IFA is a first code = 70506-8) line screen for detecting thepresence of up to approximately 1 50 autoantibodies invarious autoi mmune diseases. A pos itive DAO IFA resulti s suggestive of autoimmune dise ase and reflexes to titer and pattern. Fu rther laboratory test ing may beconsidere d if clinically indicated. For additional information, pl ease refer tohttp://educat 4[employer]/ faq/PBL030(This link is being provid ed for informational/e ducat ional purposes only.) DAO titer (test 1:320 titer H Reference R olivia code = 5048-4) <1:40 Negativ e 1:40-1:80 Low Antibody Level >1:80 Elevated Antibo dy Level DAO pattern (test Nuclear, Speckled A Speck led pattern is code = 34490-6) associated w ith mixed connectivetissu e disease (MCTD), systemic lupus erythematosus(S LE), Sjogren's syndr ome, dermatomyositis , and systemic sclerosis/polym yosit is overlap. AC-2,4,5,29: Speckled International Consensus on AN A Patterns(https: //doi .org/10.1515/cc lm-20 18-0052) RAC (test code = Performing RAC) Organization Information: Site ID: IG [facility]: [facility] Address: [address] [place] [address] Director: Dr. Maxx Mejia Lab Interpretation Abnormal (test code = 07567-1) [facility]anoImmunofixation, [id number] 23:32:00InterpretationComment: A faint IgG (kappa) monoclonal immunoglobulin is detected. IgM lambda monoclonal band present. [employer] Organization Information: Site ID: IG [facility]: [facility] Address: [address] [place] [address] Director: Dr[address] [facility] Immunofixation, [id number] 23:32:00InterpretationComment: A faint IgG (kappa) monoclonal immunoglobulin is detected. IgM lambda monoclonal band present. [employer] Organization Information: Site ID: IG Name: [employer] [facility] Address: [address] [facility] [place] [address] Director: [facility]/W 2020-03-11 14:53:45 [facility] : 1940 Sex: MCLINICAL INDICATI ON: C61 Malignant neoplasm of prostateMODALITY: AisleBuyer 3T MRI TECHNIQUE: Multiplanar multi sequence MRI examination of the lumbar spine was performed. IV gadolinium contrast was administered and post-contrast imaging performed.IMPRESSION:1. Old compression fracture of L2 without edema. 2. Intradiskal herniation/Schmorl's nodes involve the superior endplate of L3 and the inferior endplate of L4. Finding is a little more prominent at L3. There is edema and mild enhancement around each Schmorl's node that may explain the increased uptake at L3 on the bone scan.3. No suggestion of metastatic disease .4. L5-S1, 5 mm right central disc protrusion contacting the S1 nerve root in the right lateral recess, moderate bilateral facet arthropathy and ligamentum flavum thickening . Central canal is patent. Mild bilateral lateral recess and foraminal narrowing. 5. At L4-L5, 4 mm broad-based disc osteophyte complex., bilateral facet arthropathy and ligamentum flavum redundancy. Mild central canal narrowing of 9 mm. Moderate bilateral [...] foraminal narrowing without nerve root compression. 7. At L2-L3, 3 mm broad-based disc osteophyte complex, mild bilateral facet and uncovertebral joint arthropathy. Mild canal narrowing of 8.6 mm . Mild to moderate bilateral lateral recess and foraminal narrowing without nerve rootcompression.FINDINGS:COMPARISON: Bone scan demonstrating abnormal uptake at L3 and abnormal uptake in the inferior right [...] arthropathy and ligamentum flavum thickening. Central canal is patent. There is mild bilateral foraminal narrowing.L4-L5: There [...] complex that is concave centrally. There is moderate facet arthropathyand moderate ligamentum flavum thickening. There is mild central canal narrowing of 8.8 mm with epidural fat posteriorly. There is moderate bilateral lateral recess narrowing crowding the descending [id number] roots. There is mild bilateral foraminal narrowing without nerve root compression.L2-L3: Thereis a 3 mm broad-based disc osteophyte complex. There is mild bilateral facet and uncovertebral jointarthropathy. There is mild canal narrowing of 8.6 mm with epidural fat posteriorly. There is mild tomoderate bilateral lateral recess and foraminal narrowing without nerve root compression.L1-L2: There is no disc protrusion. There is mild bilateral facet arthropathy. The central canal and foramina are patent.SARS coronavirus 2 RNA [Presence] in Respiratory specimen by SHANE with probe [id number] 14:35:05 Test Item Value Reference Range Interpretation Comments SARS coronavirus 2 RNA Not detected Not-Detected [Presence] in Respiratory specimen by SHANE with probe detection (test code = 61445-3) FRANKY ONTIVEROS WESTRibs Bilateral W/ChestRibs Bilateral W/ChestRenal Ultrasound-CompleteRenal Ultrasound-Complete
--- NOTE | 2022-06-23 17:39 | RAD REPORT ---
EXAM DESCRIPTION: RAD - Shoulder Right 2 View - 06/23/2022 5:27 pm CLINICAL HISTORY: PAIN COMPARISON: No comparisons FINDINGS/IMPRESSION: Multipart fracture of the right proximal humerus. The distal fragment is displa selvin superiorly and medially with some foreshortening. Fracture involves the surgical neck and greater tuberosity. Suspect involvement of the lesser tuberosity as well. Right AC joint spurring. No disloc ation.
--- NOTE | 2022-06-23 17:43 | RAD REPORT ---
EXAM DESCRIPTION: CT - Head Brain Wo Cont - 06/23/2022 5:36 pm CLINICAL HISTORY: TRAUMA COMPARISON: Ct Stroke Brain Wo Cont dated 11/05/2021; Head Brain Wo Cont dated 06/11/2017; Brain Wo Co nt dated 11/05/2021; MRA Neck W/Wo Cont dated 11/11/2021 TECHNIQUE: All CT scans are performed using dose optimization technique as appropriate and may inclu de automated exposure control or mA/KV adjustment according to patient size. FINDINGS: No intracranial hemorrhage, hydrocephalus or extra-axial fluid collection.No areas of brai n edema or evidence of midline shift. Moderate remote left cerebellar infarct. Age advanced cerebral atrophy. Chronic small vessel ischemic changes. The paranasal sinuses and mastoids are clear. The calvarium is intact. IMPRESSION: No acute intracranial abnormality.
[2022-06-23] MEDS ORDERED: ONDANSETRON 4 MG/2 ML VIAL ONE (18:13)
[2022-06-23] MEDS ORDERED: MORPHINE 4 MG/ML SYR ONE (18:13)
--- NOTE | 2022-06-23 18:39 | EDPHYS ---
Physician Documentation [facility] Name: Vaughn Webb Age: 82 yrs Sex: Male : 1940 Arrival Date: 06/23/2022 Time: 16:59 Bed 16 Private MD: ED Physician Martinez Maciel HPI: 06/23 17:27 This 82 yrs old Male presents to ER via EMS with complaints of Fall Injury. rt 17:27 Patient presents to the ED with mechanical fall. Patient states that about 30 minutes rt ago, he went to stand up, lost his balance and fell hitting mostly his right shoulder but also states he believes that he hit his head. Patient denies any syncopal event, loss of consciousness. He reports significant pain to his right shoulder. It is aching nature, nonradiating. Denies other acute complaints.. - Family history:: not pertinent. ROS: 17:27 Constitutional: Negative for fever, chills, and weight loss, Neck: Negative for injury, rt pain, and swelling, Cardiovascular: Negative for chest pain, palpitations, and edema, Respiratory: Negative for shortness of breath, cough, wheezing, and pleuritic chest pain, Abdomen/GI: Negative for abdominal pain, nausea, vomiting, diarrhea, and constipation, Skin: Negative for injury, rash, and discoloration, Neuro: Negative for headache, weakness, numbness, tingling, and seizure, Psych: Negative for depression, anxiety, suicide ideation, homicidal ideation, and hallucinations. 17:27 MS/extremity: Positive for pain, tenderness. Exam: 17:27 Constitutional: This is a well developed, well nourished patient who is awake, alert, rt and in no acute distress. Head/Face: Normocephalic, atraumatic. Neck: Trachea midline, no thyromegaly or masses palpated, and no cervical lymphadenopathy. Supple, full range of motion without nuchal rigidity, or vertebral point tenderness. No Meningismus. Chest/axilla: Normal chest wall appearance and motion. Nontender with no deformity. No lesions are appreciated. Cardiovascular: Regular rate and rhythm with a normal S1 and S2. No gallops, murmurs, or rubs. Normal PMI, no JVD. No pulse deficits. Respiratory: Lungs have equal breath sounds bilaterally, clear to auscultation and percussion. No rales, rhonchi or wheezes noted. No increased work of breathing, no retractions or nasal flaring. Abdomen/GI: Soft, non-tender, with normal bowel sounds. No distension or tympany. No guarding or rebound. No evidence of tenderness throughout. Skin: Warm, dry with normal turgor. Normal color with no rashes, no lesions, and no evidence of cellulitis. Neuro: Awake and alert, GCS 15, oriented to person, place, time, and situation. Cranial nerves II-XII grossly intact. Motor strength 5/5 in all extremities. Sensory grossly intact. Cerebellar exam normal. Normal gait. Psych: Awake, alert, with orientation to person, place and time. Behavior, mood, and affect are within normal limits. 17:27 Musculoskeletal/extremity: Tenderness with swelling to the right shoulder, motion limited due to pain. Pulses, motor, sensation intact.. Vital Signs: 16:58 BP 170 / 114; Pulse 72; Resp 18; Temp 97.9(O); Pulse Ox 100% on R/A; Weight 79.38 kg; db Height 5 ft. 11 in. (180.34 cm); Pain 8/10; 18:17 BP 182 / 128; Pulse 72; Resp 18; Pulse Ox 100% ; kr3 16:58 Body Mass Index 24.41 (79.38 kg, 180.34 cm) db Sparkle Coma Score: 16:58 Eye Response: spontaneous(4). Verbal Response: oriented(5). Motor Response: obeys db commands(6). Total: 15. Trauma Score (Adult): 16:58 Eye Response: spontaneous(1); Verbal Response: oriented(1); Motor Response: obeys db commands(2); Systolic BP: > 89 mm Hg(4); Respiratory Rate: 10 to 29 per min(4); Crewe Score: 15; Trauma Score: 12 MDM: 17:04 Patient medically screened. rt 18:39 Differential diagnosis: Fracture, closed head injury, intracranial hemorrhage, shoulder rt dislocation. Data reviewed: vital signs, nurses notes, radiologic studies. Independent interpretation of the following test(s) in the Emergency Department X-Ray: My interpretation is Fracture present. Test considered but Not performed: Labs: Not a syncopal event, EKG, labs not indicated. Care significantly affected by the following chronic conditions: Current anticoagulant use. Counseling: I had a detailed discussion with the patient and/or guardian regarding: the historical points, exam findings, and any diagnostic results supporting the discharge/admit diagnosis, lab results, radiology results, the need for outpatient follow up, a orthopedic surgeon. Response to treatment: the patient's symptoms have markedly improved after treatment. ED course: No evidence of neurovascular compromise including of axillary nerve.. 06/23 17:14 Order name: Shoulder Right (2 View) XRAY; Complete Time: 17:43 rt 06/23 17:14 Order name: Head Brain Wo Cont CT; Complete Time: 17:43 rt 06/23 18:35 Order name: Shoulder Immobilizer rt Administered Medications: 18:17 Drug: Zofran (Ondansetron) 4 mg Route: IVP; Site: left antecubital; kr3 18:21 Drug: morphine 4 mg Route: IVP; Infused Over: 4 mins; Site: left antecubital; kr3 Disposition Summary: 06/23/22 18:38 Discharge Ordered Location: Home rt Problem: new rt Symptoms: have improved rt Condition: Stable rt Diagnosis - Closed head injury rt - Fall from standing rt - Right proximal humerus fracture rt Followup: rt - With: Zachary Peoples MD - When: 5 - 6 days - Reason: Discharge Instructions: - Discharge Summary Sheet rt - Humerus Fracture Treated With Immobilization rt Forms: - Medication Reconciliation Form rt - Thank You Letter rt - Antibiotic Education rt - Prescription Opioid Use rt Prescriptions: - Tylenol-Codeine #3 300 mg-30 mg Oral - take 1 tablet by ORAL route every 6 hours; 30 tablet; Refills: 0, Product rt Selection Permitted Signatures: Dispatcher [employer] Vangie Huggins, RN RN kr3 Martinez Maciel MD MD rt
--- NOTE | 2022-06-23 18:39 | ER ---
Nurse's Notes [facility] Name: Vaughn Webb Age: 82 yrs Sex: Male : 1940 Arrival Date: 06/23/2022 Time: 16:59 Bed 16 Private MD: Diagnosis: Closed head injury;Fall from standing;Right proximal humerus fracture Presentation: 06/23 16:58 Chief complaint: EMS states: patient was walking without walker to chair. Tripped and db fell states fell into wall hit right shoulder. is on blood thinners. Care prior to arrival: Splint applied. right shoulder. 16:58 Acuity: PEDRO LUIS 2 db 16:58 Method Of Arrival: EMS: [facility] db 17:09 Mechanism of Injury: Fall from standing position. Trauma event details: Injury occurred db in the [facility], Injury occurred: at home. Injury occurred: June 23, 2022 Injury occurred at: 16:40. Trauma Activation: Alert Physician: ED Physician; Name: Raheem; Notified At: 17:09; Arrived At: 17:09 Physician: General Surgeon; Name: ; Notified At: 17:09; Arrived At: Physician: Radiology; Name: ; Notified At: 17:09; Arrived At: Physician: Respiratory; Name: ; Notified At: 17:09; Arrived At: Physician: Lab; Name: ; Notified At: 17:09; Arrived At: 17:09 - Family history:: not pertinent. Screenin:58 Abuse screen: Denies threats or abuse. Denies injuries from another. Tuberculosis db screening: No symptoms or risk factors identified. Primary Survey: 17:11 NO uncontrolled hemorrhage observed. A: The client is awake and alert. The airway is db patent. The client is alert. Airway: patent. Breathing/Chest: Spontaneous respiratory effort, equal unlabored respirations, breath sounds clear bilaterally, regular pattern, symmetrical chest rise and fall. Respiratory effort: spontaneous, unlabored, Breath sounds: clear, bilaterally. Respiratory pattern: regular, Chest inspection: symmetrical rise and fall of the chest. Circulation: No external hemorrhage present. Regular and strong central pulse, skin warm/dry/normal color. Disability Pupils are equal, round, reactive to light and accommodation. Client is alert. Exposure/Environment: A warming method has been applied: A warm blanket has been provided to the patient. Reassessment Alertness and Airway: Awake and alert. The airway is patent. Airway Patent Breathing: Spontaneous respiratory effort, equal unlabored respirations, breath sounds clear bilaterally, regular pattern with symmetrical chest rise and fall. Respiratory effort Spontaneous Unlabored Breath sounds Clear Respiratory pattern Regular Chest inspection Symmetrical Circulation: No external hemorrhage noted. Regular and strong central pulse, skin warm/dry/normal color. Disability: Pupils Pupils are equal, round, reactive to light and accomodation. Alert. Assessment: 17:09 General: Appears in no apparent distress. uncomfortable, Behavior is cooperative, db anxious. Pain: Complains of pain in right shoulder. Neuro: Level of Consciousness is awake, alert, obeys commands, Oriented to person, place, time, situation, Speech is normal. Respiratory: No deficits noted. Airway is patent Respiratory effort is even, unlabored, Respiratory pattern is regular, symmetrical. Musculoskeletal: Reports pain in right arm. Vital Signs: 16:58 BP 170 / 114; Pulse 72; Resp 18; Temp 97.9(O); Pulse Ox 100% on R/A; Weight 79.38 kg; db Height 5 ft. 11 in. (180.34 cm); Pain 8/10; 18:17 BP 182 / 128; Pulse 72; Resp 18; Pulse Ox 100% ; kr3 16:58 Body Mass Index 24.41 (79.38 kg, 180.34 cm) db Eldridge Coma Score: 16:58 Eye Response: spontaneous(4). Verbal Response: oriented(5). Motor Response: obeys db commands(6). Total: 15. Trauma Score (Adult): 16:58 Eye Response: spontaneous(1); Verbal Response: oriented(1); Motor Response: obeys db commands(2); Systolic BP: > 89 mm Hg(4); Respiratory Rate: 10 to 29 per min(4); Sparkle Score: 15; Trauma Score: 12 ED Course: 16:58 Patient has correct armband on for positive identification. Bed in low position. Call db light in reach. Side rails up X2. Family accompanied patient. Pulse ox on. NIBP on. 16:58 Arm band placed on left wrist. Patient placed in an exam room. db 16:58 Patient maintains SpO2 saturation greater than 95% on room air. db 16:59 Patient arrived in ED. eb 17:03 Martinez Maciel MD is Attending Physician. rt 17:06 Leora Angel, RN is Primary Nurse. db 17:10 Triage completed. db 17:28 Shoulder Right (2 View) XRAY In Process Unspecified. EDMS 17:38 Head Brain Wo Cont CT In Process Unspecified. EDMS 18:25 Inserted saline lock: 22 gauge in left antecubital area, using aseptic technique. kr3 18:37 Zachary Peoples MD is Referral Physician. rt Administered Medications: 18:17 Drug: Zofran (Ondansetron) 4 mg Route: IVP; Site: left antecubital; kr3 18:21 Drug: morphine 4 mg Route: IVP; Infused Over: 4 mins; Site: left antecubital; kr3 Outcome: 18:38 Discharge ordered by MD. rt 19:24 Patient left the ED. kl Signatures: Dispatcher [employer] EDMS Trinidad Lynch RN Nadiya Elise Kelley, RN RN kr3 Leora Angel, RN Martinez Dugan MD MD rt
[2022-06-23] MEDS ORDERED: HYDROCODONE/APAP 10/325 TAB ONE (18:50)
[2022-06-23 19:28] VITALS: TEMP 97.9; O2SAT 100
[2022-06-23 19:29] VITALS: BP 182/128
== END 2022-06-23 19:24 | disposition home or self-care (01) ==
LOC: ER 16:55
DX: S42.201A Unspecified fracture of upper end of right humerus, initial encounter for closed fracture (principal); S09.90XA Unspecified injury of head, initial encounter; W18.30XA Fall on same level, unspecified, initial encounter
CPT/HCPCS: 70450; 73030; 96375; 96374; 99284; J2405

== ENCOUNTER 2022-07-02 22:56 | Emergency (ER) | payer OTHER, BC ==
--- OUTSIDE RECORDS SUMMARY | 2022-07-02 23:07 | XMS REPORT | Continuity of Care Document ---
:1940 Author Organization [facility] t Address [address] [place] [address] Care Team Providers Name Role Phone Asked, No Pcp Primary Care Physician Unavailable Richard Denis Attending Clinician Unavailable FREYA WATSON Attending Clinician Unavailable GHULAM FONG Attending Clinician Unavailable Domenico Lindquist Rahil Attending Clinician Unavailable [place] Mars Attending Clinician Unavailable IAM LEARY Attending Clinician Unavailable Ricki De La Fuente MA Attending Clinician Unavailable MEERA LAINEZ Attending Clinician Unavailable Bia Neumann MA Attending Clinician Unavailable Manny Du MD Attending Clinician ROSELYN BRYSON Attending Clinician Unavailable REMEDIOS YIP Attending Clinician Unavailable Omaira Castillo MD Attending Clinician [phone] Carolyn Hayes MD Attending Clinician Moustapha Garcia MD Attending Clinician Rhoda Denson MA Attending Clinician Unavailable Bertha Santana MD Attending Clinician Suyapa Day MD Attending Clinician Rj Yoder CRNA Attending Clinician [phone] Mahi Qureshi Attending Clinician Unavailable Wanda Guerra MA Attending Clinician Unavailable Milton Mireles MD Attending Clinician Susan Angel MD Attending Clinician Dana Green MA Attending Clinician Unavailable Van_T Attending Clinician Unavailable Roc Viveros Attending Clinician [phone] Mei Brooks Attending Clinician Unavailable B[place] Mars Attending Clinician Unavailable B[place]ark Mars Attending Clinician Unavailable MD MOUSTAPHA GARCIA Attending Clinician Unavailable CHONG MUSA Attending Clinician Unavailable LIBERTY PHELPS Attending Clinician Unavailable Domenico Lindquist Rahil Admitting Clinician Unavailable DOMENICO LINDQUIST Admitting Clinician Unavailable TOMER GANNON Admitting Clinician Unavailable BERTHA SANTANA Admitting Clinician Unavailable Rebecca Admitting Clinician Unavailable [place] Mars Admitting Clinician Unavailable MOUSTAPHA GARCIA Admitting Clinician Unavailable MD MOUSTAPHA GARCIA Admitting Clinician Unavailable LIBERTY PHELPS Admitting Clinician Unavailable MANNY DU Admitting Clinician Unavailable Payers Payer Name Policy Type Policy Number Effective Date Expiration Date S helio MEDICARE PART A [id number] 2004 AND B 00:00:00 [facility] [id number] BC BCTI [id number] [employer] [place] [id number] [facility] [place] B[place]: [id number] 2004 [place] 00:00:00 [place] [id number] 2018 [place] (MEDICARE 00:00:00 SUPPLEMENT) Problems Condition [...] Added automatic ally from request for surgery [id number] Arthritis Arthritis Disease Active 2020-05 [facility] [...] 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 Added automatic ally from request for surgery [id number] Abnormal Abnormal Disease Active Metho di stress stress 1-15 st test test 00:00: Hospita 00 l Angina Angina Disease Active [facility] pectoris pectoris 1-15 st 00:00: Hospita 00 l CAD in CAD in Disease Active 2017-05 [facility] [place] 2-11 st artery artery 00:00: Hospita 00 [...] disease 00:00: Hospita involving involving 00 l [place] coronary coronary artery artery without without angina angina pectoris pectoris Essential Essential Disease Active [facility] hypertensi hypertensi 2-12 st on on 00:00: Hospita 00 l S/P S/P Disease Active [facility] coronary coronary 2-12 st artery artery 00:00: Hospita bypass bypass 00 l graft x 3 graft x 3 [id number] +5th digit Problem Co mmon eff Spirit 02/11/22*An - [facility]I eurysm of infrarenal 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 - CHI [facility] [id number] Current Problem Common moderate Spirit episode of - [facility] major [facility] Medical without Center prior episode Insomnia Insomnia Problem Commo n Spirit - CHI [facility] Gammopathy Gammopathy Problem C ommon Spirit - CHI [facility] [id number] DAR Problem Common (generaliz Spirit ed anxiety - CHI disorder) [facility] [id number] Polyp of Problem Commo n colon, Spirit [facility]specifie [facility] type [facility] [id number] 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 bypass Medical graft of Center [place] heart with other forms of angina pectoris [...] [facility] Pelvic Pelvic Problem Active 2013-06-05 Dre fatemeh Fracture Fracture 16:18:01 l Active [place] 06/05/2013 [facility] Closed Closed Problem Active 2013-06-05 Dre fatemeh Fracture Fracture 16:18:01 l Of The Of The [place] Acetabulum Acetabulum Active 06/05/2013 [facility] Allergies, [...] Hospita s reaction l s to drug 33314 Drug Active Unknown Common allergy Spirit - [facility] Family History Family Member Diagnosis Comments Start Date Stop Date Source Natural father No Known Problems Met [facility] Natural brother Cancer [facility] Natural mother Cancer [facility] Social History Social Habit Start Date Stop Date Quantity Comments Source History of Tobacco Common Spirit - Use [facility] Sex Assigned At Common Sp sushma - [facility] Exposure to Not sure [facility] SARS-CoV-2 (event) Hospit al Alcohol intake 2021-09-13 2021-09-13 Current [facility] 00:00:00 00:00:00 non-drinker of Hospital alcohol (finding) Cigarettes smoked 2019-05-15 2019-05-[address] current (pack per 00:00:00 00:00:00 Hospita l day) - Reported Cigarette 2019-05-15 2019-05-15 [facility] pack-years 00:00:00 00:00:00 Hospital Tobacco use and 2019-05-15 2019-05-15 Smokeless tobacco Me [facility] exposure 00:00:00 00:00:00 non-user Hospital Smoking Status Start Date Stop Date Source Never Smoker Franky magallanes Former Smoker 2022-06-09 00:00:00 2022-06-09 00:00:[facility] Medications Ordered Filled Start Stop Current Ordering [...] 00:00: dtime_a 00 s_neede d} FLUoxetine FLUoxetine 2022- No 1{capsu QD FLUoxetine HCl 10 MG [...] 00 s_neede d} meclizine 2021-05 Yes 25mg [id number] Take 1 [facility] (ANTIVERT) -08 [id number] tablet (25 st 25 mg 09:59: 3D mg total) Hospita tablet 03 by mouth 3 l (three) times a day as needed for dizziness. meclizine 2021-05 Yes 25mg Q.[id number] Take 1 [facility] (ANTIVERT) - [id number] tablet (25 st 25 mg 09:59: 3D mg total) Hospita tablet 03 by mouth 3 l (three) times a day as needed for dizziness. citalopram 2021-05 Yes 40mg QD Take 40 mg M ethodi (CeleXA) 40 05-[address] MG tablet 09:57: daily. Hospit a 40 l bicalutamid 2021-05 Yes 50mg QD Take 50 mg Methodi e (CASODEX) 05-[address] 50 mg chemo 09:57: daily. Hosp pricilla tablet 40 l pantoprazol 2021-05 Yes 40mg 1 tablet. M ethodi e 05-21 st (PROTONIX) 09:57: Hospita 40 MG EC 40 l tablet melatonin 2021-05 Yes 3mg QD Take 1 Meth zack mg tablet -[address] 09:57: mouth Hospita 40 nightly as l needed. bicalutamid 2021-05 Yes 50mg QD Take 50 mg Methodi e (CASODEX) 05-[address] 50 mg chemo 09:57: daily. Hosp pricilla tablet 40 l pantoprazol 2021-05 Yes 40mg 1 tablet. M ethodi e 08 st (PROTONIX) 09:57: Hospita 40 MG EC 40 l tablet melatonin 2021-05 Yes 3mg QD Take 1 Meth zack mg tablet -[address] 09:57: mouth Hospita 40 [...] by mouth l 24 hr daily. tablet NIFEdipine 2021-05 No 60mg QD Take 1 Meth zack ER 05-21 tablet (60 st (PROCARDIA- 00:00: 05:59 mg total) Hospita XL) 60 MG 00 :00 by mouth l 24 hr daily. tablet ezetimibe 2021-05 Yes TAKE 1 Method i (ZETIA) 10 0-[address] mg tablet 00:00: MOUTH Hospita 00 DAILY l GENERIC EQUIVALENT FOR ZETIA ezetimibe 2021-05 Yes TAKE 1 Method i (ZETIA) 10 0-[address] mg tablet 00:00: MOUTH Hospita 00 DAILY l GENERIC EQUIVALENT FOR ZETIA methylPREDN methylPREDN 2021- No QD methylPRED ISolone 4 ISolone 4 01-06 NISolone 4 MG MG 00:00: 00:00 MG 00 :00 methylPREDN methylPREDN 2021-0 2021- No QD methylPRED ISolone 4 ISolone 4 01-06 NISolone 4 MG MG 00:00: 00:00 MG 00 :00 aspirin 2021-0 Yes 81mg QD Take 81 mg Meth zack (ECOTRIN) 12-[address] 81 MG 11:06: daily. Hospita enteric 22 l coated tablet aspirin Yes 81mg QD Take 81 mg Meth zack (ECOTRIN) 12-[address] 81 MG 11:06: daily. Hospita enteric 22 l coated tablet LACTOBACILL Yes 1{tbl} QD Take 1 Me thodi US 12-[address] RHAMNOSUS 11:06: mouth Hospita GG 10 daily. l (CULTURELLE ORAL) LACTOBACILL Yes 1{tbl} QD Take 1 Me thodi US 12-[address] RHAMNOSUS 11:06: mouth Hospita GG 10 daily. l (CULTURELLE ORAL) metoprolol 2022- No 50mg QD Take 1 Meth zack succinate 12-20- tablet (50 st XL 00:00: 04:59 mg total) Hospita (TOPROL-XL) 00 :00 by mouth l 50 mg 24 hr daily. tablet metoprolol 0 2022- No 50mg QD Take 1 Meth zack succinate 12-20 tablet (50 st XL 00:00: 04:59 mg total) Hospita (TOPROL-XL) 00 :00 by mouth l 50 mg 24 hr daily. tablet levETIRAcet 2021-0 Yes 500mg Q.5D Take 500 M ethodi am (KEPPRA) 8-[address] 500 MG 00:00: mouth 2 Hospita tablet 00 (two) l times a day. levETIRAcet 2021-0 Yes 500mg Q.5D Take 500 M ethodi am (KEPPRA) 8-[address] 500 MG 00:00: mouth 2 Hospita tablet 00 (two) l times a day. Eliquis 5 2021-0 Yes 5mg Q.5D Take 5 mg [facility] mg tablet 7-[address] 00:00: (two) Hospita 00 times a l day. atorvastati 2021-0 Yes 40mg QD Take 40 mg Methodi n (LIPITOR) 7-[address] 40 mg 00:00: nightly. Hospita tablet 00 l NIFEdipine 2021-0 Yes 30mg Q.5D Take 30 mg M ethodi ER 7-[address] (PROCARDIA- 00:00: (two) Hospi ta XL) 30 MG 00 times a l 24 hr day. tablet Eliquis 5 2021-0 Yes 5mg Q.5D Take 5 mg [facility] mg tablet 7-[address] 00:00: (two) Hospita 00 times a l day. atorvastati 2021-0 Yes 40mg QD Take 40 mg Methodi n (LIPITOR) 7-[address] 40 mg 00:00: nightly. Hospita tablet 00 l NIFEdipine 2021-0 Yes 30mg Q.5D Take 30 mg M ethodi ER 7-[address] (PROCARDIA- 00:00: (two) Hospi ta XL) 30 MG 00 times a l 24 hr day. tablet metoprolol 2021-0 2021- No 25mg QD Take 25 mg [facility] succinate 11-[address] XL 00:00: 00:00 daily. Hospita (TOPROL-XL) 00 :00 l 25 mg 24 hr tablet metoprolol 2021-0 2022- No 25mg QD Take 25 mg [facility] succinate 11-[address] XL 00:00: 00:00 daily. Hospita (TOPROL-XL) 00 :00 l 25 mg 24 hr tablet ondansetron 2021-0 Yes 4mg Q8H Take 4 mg M ethodi ODT 7-[address] (ZOFRAN-ODT 00:00: every 8 Hos deo ) 4 MG 00 (eight) l disintegrat hours as ing tablet needed. ondansetron 2-0 Yes 4mg Q8H Take 4 mg M ethodi ODT 7-[address] (ZOFRAN-ODT 00:00: every 8 Hos deo ) 4 MG 00 (eight) l disintegrat hours as ing tablet needed. amLODIPine amLODIPine 0 No 1{table QD amLODIPine Besylate 10 Besylate 11-11 t} Besylate MG MG 00:00: 10 MG 00 hydrALAZINE hydrALAZINE 0 No 1{table TID hydrALAZIN HCl 25 MG [...] 1{table BID Metoprolol Tartrate 50 Tartrate 50 -01 t_with_ Tartrate MG MG 00:00: food} 50 [...] 00:00: food} 50 MG 00 amLODIPine amLODIPine 0 No 1{table QD amLODIPine Besylate 10 Besylate 10 11-11 t} Besylate MG MG 00:00: 10 MG 00 hydrALAZINE hydrALAZINE 0 No 1{table TID hydrALAZIN HCl 25 MG [...] MG 00:00: food} 50 MG 00 metoprolol 2021-0 Yes TAKE 1 Metho di succinate 6-[address] XL 00:00: MOUTH Hospita (TOPROL-XL) 00 DAILY l 50 mg 24 hr tablet metoprolol 2021-0 Yes TAKE 1 Metho di succinate 6-[address] XL 00:00: MOUTH Hospita (TOPROL-XL) 00 DAILY l 50 mg 24 hr tablet rosuvastati 2021-0 Yes 40mg QD Take 1 Meth zack n (CRESTOR) 4-27 tablet (40 st 40 MG 00:00: mg total) Hospita tablet 00 by mouth l daily. rosuvastati Yes 40mg QD Take 1 Meth zack n (CRESTOR) 4-27 tablet (40 st 40 MG 00:00: mg total) Hospita tablet 00 by mouth l daily. metoprolol 2021- No 50mg QD Take 1 Meth zack succinate -19 06-30 tablet (50 st XL 00:00: 00:00 mg total) Hospita (TOPROL-XL) 00 :00 by mouth l 50 mg 24 hr daily. tablet metoprolol 2021- No 50mg QD Take 1 Meth zack succinate -19 06-30 tablet (50 st XL 00:00: 00:00 mg total) Hospita (TOPROL-XL) 00 :00 by mouth l 50 mg 24 hr daily. tablet clopidogreL 2021- No TAKE 1 [facility] (PLAVIX) 75 4-18 08-[address] mg tablet 00:00: 00:00 MOUTH Hospit a 00 :00 DAILY. l GENERIC EQUIVALENT FOR PLAVIX. clopidogreL 2021- No TAKE 1 Met hodi [...] 2021- No TAKE 1 Method i (COZAAR) 06-16 TABLET(100 st 100 MG 00:00: 00:00 MG TOTAL) Hospi ta tablet 00 :00 BY MOUTH l DAILY losartan 2021-0 2021- No TAKE 1 Method i (COZAAR) 06-16 TABLET(100 st 100 MG 00:00: 00:00 MG [...] pricilla tablet 34 l traMADoL 2021- No [id number] 50mg Q6H Take 1 Metho di (ULTRAM) 50 06-09- tablet (50 s t mg tablet 00:00: 05:59 mg total) Ho spita 00 :00 by mouth l every 6 (six) hours as needed for moderate pain for up to 3 days .acute pain. Take after surgery as needed for significan t pain. traMADoL 2021- No [id number] 50mg Q6H Take 1 Metho di (ULTRAM) [...] 50 mg 24 hr daily. tablet losartan 2021-0 Yes 100mg QD Take 1 Method i (COZAAR) 06-[address] 100 MG 00:00: (100 mg Hospita tablet 00 total) by l mouth daily. metoprolol 2021-0 Yes 50mg QD Take 1 Metho di succinate 06-08 tablet (50 st XL 00:00: mg total) Hospita (TOPROL-XL) 00 by mouth l 50 mg 24 hr daily. tablet metoprolol 2021-0 202- No 50mg QD Take 1 Meth zack succinate 06-08 04-19 tablet (50 st XL 00:00: 00:00 mg total) Hospita (TOPROL-XL) 00 :00 by mouth l 50 mg 24 hr daily. tablet metoprolol 2021-0 2021- No 50mg QD Take 1 Meth zack succinate 06-0819 tablet (50 st XL 00:00: 00:00 mg total) Hospita (TOPROL-XL) 00 :00 by mouth l 50 mg 24 hr daily. tablet losartan 2021-0 2021- No 100mg QD Take 1 Metho di (COZAAR) 06-[address] 100 MG 00:00: 00:00 (100 mg Hospita tablet 00 :00 total) by l mouth daily. metoprolol 2021-0 2021- No 50mg QD Take 1 Meth zack succinate 06-08 tablet (50 st XL 00:00: 00:00 mg total) Hospita (TOPROL-XL) 00 :00 by mouth l 50 mg 24 hr daily. tablet losartan 2021-0 2021- No 100mg QD Take 1 Metho di (COZAAR) 06-[address] 100 MG 00:00: 00:00 (100 mg Hospita tablet 00 :00 total) by l mouth daily. metoprolol 2021-0 2021- No 50mg QD Take 1 Meth zack succinate 06-08 tablet (50 st XL 00:00: 00:00 mg total) Hospita (TOPROL-XL) 00 :00 by mouth l 50 mg 24 hr daily. tablet losartan 2021-0 2021- No 100mg QD Take 1 Metho di (COZAAR) 1-26 01-[address] 100 MG 00:00: 00:00 (100 [...] DAILY l GENERIC EQUIVALENT FOR CRESTOR rosuvastati 2021- No TAKE 1 Met hodi n (CRESTOR) -08 15-[address] 40 MG 00:00: 00:00 MOUTH Hospita tablet 00 :00 DAILY l GENERIC EQUIVALENT FOR CRESTOR rosuvastati 2021- No TAKE 1 Met hodi n (CRESTOR) -08 15- TABLET BY st 40 MG 00:00: 00:00 MOUTH Hospita tablet 00 :00 DAILY l GENERIC EQUIVALENT FOR CRESTOR HYDROcodone 2020-05 1{tbl} Q6H Take 1 Methodi -acetaminop 2-28 -[address] [employer]) 00:00: 05:59 mouth Hosp pricilla 5-325 mg 00 :00 every 6 l per tablet (six) hours as needed for moderate pain for up to 10 days .acute pain. Max Daily Amount: 4 tablets HYDROcodone 2020-05 1{tbl} Q6H Take 1 [facility] -acetaminop 2-28 -[address] hen [employer]) 00:00: 05:59 mouth Hosp pricilla 5-325 mg [...] tablet 44 :00 l bicalutamid 2020-05- No [id number] TAKE 1 Methodi e (CASODEX) 0-08 04- TABLET BY st 50 mg chemo 00:00: 05:59 MOUTH 2 Ho spita tablet 00 :00 TIMES A l DAY GENERIC EQUIVALENT FOR CASODEX bicalutamid 2020-05- No [id number] TAKE 1 Methodi e (CASODEX) 004-08 TABLET [...] :00 DAILY l GENERIC EQUIVALENT FOR ZETIA ezetimibe 2021- No TAKE 1 Metho di (ZETIA) 10 7- 10-[address] mg tablet 00:00: [...] Hospita tablet 00 :00 DAILY l amLODIPine 2020-0 2021- No [id number] 5mg Q.5D Take 1 Methodi (NORVASC) 5 -03 14- tablet (5 st mg tablet 00:00: 00:00 mg total) Ho spita 00 :00 by mouth 2 l (two) times a day. amLODIPine 2020-0 2021- No [id number] 5mg Q.5D Take 1 [facility] (NORVASC) 5 -03 14-06 tablet (5 st mg tablet 00:00: 00:00 mg total) Ho spita 00 :00 by mouth 2 l (two) times a day. rosuvastati 2020- No 40mg QD Take 1 Met hodi n (CRESTOR) 4- 10-11 tablet (40 s t 40 MG 00:00: 00:00 mg total) Hospit a tablet 00 :00 by mouth l daily. rosuvastati 2020- No 40mg QD Take 1 Met hodi n (CRESTOR) 4- 10-11 tablet (40 s t 40 MG [...] 100mg QD Take 1 Metho di (Cozaar) 3-25 -[address] 100 MG 00:00: 00:00 (100 mg Hospita tablet 00 :00 total) by l mouth daily. metoprolol 2020- No 100mg QD Take 1 Met hodi succinate -26 07- tablet st XL 00:00: 00:00 (100 mg Hospita (TOPROL-XL) 00 :00 total) by l 100 mg 24 mouth hr tablet daily. metoprolol 2020- No 100mg QD Take 1 Met hodi succinate 3-26 07-[address] XL 00:00: 00:00 (100 mg Hospita (TOPROL-XL) 00 :00 total) by l 100 mg 24 mouth hr tablet daily. meloxicam 2021-0 2021- No 15mg QD Take 15 mg M ethodi (MOBIC) 15 2-16 -[address] mg tablet 14:25: 00:00 daily. Hospi ta 55 :00 l meloxicam 2020- No 15mg QD Take 15 mg M ethodi (MOBIC) 15 2-16 02-[address] mg tablet 14:25: 00:00 daily. Hospi ta 55 :00 l amLODIPine 2020- No [id number] 5mg Q.5D Take 1 [facility] (NORVASC) 5 2-16 05-11 tablet (5 st mg tablet 00:00: 00:00 mg total) Ho spita 00 :00 by mouth 2 l (two) times a day. amLODIPine 2020- No [id number] 5mg Q.5D Take 1 Methodi (NORVASC) 5 [...] QD Take 1 Met hodi (Plavix) 75 1-05 04-18 tablet (75 s t mg tablet 00:00: 00:00 mg total) Ho spita 00 :00 by mouth l daily. clopidogreL 2021- No 75mg QD Take 1 Met [facility]odi (Plavix) 75 05-18 tablet (75 s t mg tablet 00:00: 00:00 mg total) Ho spita 00 :00 by mouth l daily. losartan No 100mg QD Take 1 Metho di (Cozaar) 05-[address] 100 MG 00:00: 00:00 (100 mg Hospita tablet 00 :00 total) by l mouth daily. losartan No 100mg QD Take 1 Metho di (Cozaar) 05-[address] 100 MG 00:00: 00:00 (100 mg Hospita tablet 00 :00 total) by l mouth daily. bicalutamid 2019-05 No 50mg Q.5D Take 1 Met hodi e (CASODEX) 06-01 tablet (50 s t 50 mg chemo 00:00: 05:59 mg total) Hospita tablet 00 :00 by mouth 2 l (two) times a day for 90 days. bicalutamid 2019-05 No 50mg Q.5D Take 1 Met hodi e (CASODEX) 06-01 tablet (50 s t 50 mg chemo 00:00: 05:59 mg total) Hospita tablet 00 :00 by mouth 2 l (two) times a day for 90 days. ezetimibe No 10mg QD Take 1 Metho di (ZETIA) 10 01-14- tablet (10 st mg tablet 00:00: 00:00 mg total) Ho spita 00 :00 by mouth l daily. ezetimibe No 10mg QD Take 1 Metho di (ZETIA) 10 01-14-14 tablet (10 st mg tablet 00:00: 00:00 mg total) Ho spita 00 :00 by mouth l daily. amLODIPine No [id number] 10mg Q.5D Take 1 [facility]i (NORVASC) 12-29 tablet (10 st 10 mg 00:00: 00:00 mg total) Hospit a tablet 00 :00 by mouth 2 l (two) times a day. amLODIPine No [id number] 10mg Q.5D Take 1 [facility] (NORVASC) 12-29 tablet (10 st 10 mg 00:00: 00:00 [...] 100mg QD Take 1 Met hodi succinate 09-[address] XL 00:00: 00:00 (100 mg Hospita (TOPROL-XL) 00 :00 total) by l 100 mg 24 mouth hr tablet daily. cefTRIAXone Yes [id number] 1g M ethodi (ROCEPHIN) 18 st injection 1 14:00: Hospit a g 00 l cefTRIAXone 2020-0 Yes [id number] 1g M ethodi (ROCEPHIN) 18 st injection 1 14:00: Hospit a g 00 l cefTRIAXone 2020-0 Yes [id number] 1g M ethodi (ROCEPHIN) 18 st injection 1 14:00: Hospit a g 00 l cefTRIAXone 2020-0 Yes [id number] 1g M ethodi (ROCEPHIN) 18 st injection 1 14:00: Hospit a g 00 l No Active Yes No Active Mem [facility] Medications - Medication l 16:18: s Dawson 01 No Active Yes No Active Mem [facility]ria Medications 06-05 Medication l 16:18: s Dawson Zofran Zofran No Zofran Vitamin D Vitamin [...] ER 25 MG triamcinolo triamcinolo No triamcinol [facility] ne one [facility] acetonide acetonide acetonide Urology [...] directed directed directed amlodipine amlodipine No amlodipine [place] 10 mg 10 mg 10 mg [facility] tablet TK 1 tablet TK 1 tablet TK Urology T PO 2 T PO 2 1 T PO 2 TIMES A DAY TIMES A DAY TIMES A DAY amlodipine amlodipine No amlodipine [place] 5 mg tablet 5 mg tablet 5 mg M etro TAKE 1 TAKE 1 tablet Urology TABLET BY TABLET BY TAKE 1 MOUTH TWICE MOUTH TWICE TABLET BY DAILY DAILY MOUTH TWICE DAILY atorvastati atorvastati No atorvastat [place] n 40 mg n 40 mg in 40 mg [facility] tablet TAKE tablet TAKE tablet Urology 1 TABLET BY 1 TABLET BY TAKE 1 MOUTH DAILY MOUTH DAILY TABLET BY MOUTH DAILY bicalutamid bicalutamid No bicalutami [place] e 50 mg e 50 mg de 50 mg [facility] tablet TAKE tablet TAKE tablet Urology 1 TABLET BY 1 TABLET BY TAKE 1 MOUTH 2 MOUTH 2 TABLET BY TIMES A DAY TIMES A DAY MOUTH 2 GENERIC GENERIC TIMES A EQUIVALENT EQUIVALENT DAY FOR CASODEX FOR CASODEX GENERIC EQUIVALENT FOR CASODEX bupropion bupropion No bupropion [place] HCl XL 150 HCl XL 150 HCl XL 150 [facility] mg 24 hr mg 24 hr mg 24 hr Uro logy tablet, tablet, tablet, extended extended extended release TK release TK release TK 2 TS PO QD 2 TS PO QD 2 TS PO QD citalopram citalopram No citalopram [place] 40 mg 40 mg 40 mg [facility] tablet TAKE tablet TAKE tablet Urology 1 TABLET BY 1 TABLET BY TAKE 1 MOUTH DAILY MOUTH DAILY TABLET BY MOUTH DAILY clopidogrel clopidogrel No clopidogre [place] 75 mg 75 mg l 75 mg [facility] tablet TAKE tablet TAKE tablet Urology 1 TABLET BY 1 TABLET BY TAKE 1 MOUTH MOUTH TABLET BY DAILY. DAILY. MOUTH GENERIC GENERIC DAILY. EQUIVALENT EQUIVALENT GENERIC FOR PLAVIX. FOR PLAVIX. EQUIVALENT FOR PLAVIX. ezetimibe ezetimibe No ezetimibe [place] 10 mg 10 mg 10 mg [facility] tablet TAKE tablet TAKE tablet Urology 1 TABLET BY 1 TABLET BY TAKE 1 MOUTH DAILY MOUTH DAILY TABLET BY GENERIC GENERIC MOUTH EQUIVALENT EQUIVALENT DAILY FOR ZETIA FOR ZETIA GENERIC EQUIVALENT FOR ZETIA levofloxaci levofloxaci No levofloxac [place] n 750 mg n 750 mg in 750 mg Me tro tablet tablet tablet Urology losartan losartan No losartan [place] 100 mg 100 mg 100 mg [facility] tablet TAKE tablet TAKE tablet Urology 1 TABLET BY 1 TABLET BY TAKE 1 MOUTH DAILY MOUTH DAILY TABLET BY MOUTH DAILY meclizine meclizine No meclizine [place] 12.5 mg 12.5 mg 12.5 mg [facility] tablet TAKE tablet TAKE tablet Urology 1 TABLET BY 1 TABLET BY TAKE 1 MOUTH THREE MOUTH THREE TABLET BY TIMES DAILY TIMES DAILY MOUTH NEEDED NEEDED THREE TIMES DAILY NEEDED meloxicam meloxicam No meloxicam [place] 15 mg 15 mg 15 mg [facility] tablet TK 1 tablet TK 1 tablet TK Urology T PO ONCE A T PO ONCE A 1 T PO DAY DAY ONCE A DAY methylpredn methylpredn No methylpred [place] isolone 4 isolone 4 nisolone 4 [facility] mg tablets mg tablets mg tablets Urology in a dose in a dose in a dose pack FOLLOW pack FOLLOW pack PACKAGE PACKAGE FOLLOW DIRECTIONS DIRECTIONS PACKAGE DIRECTIONS metoprolol metoprolol No metoprolol [place] succinate succinate succinate [facility] ER 100 mg [...] FOR TOPROL XL metoprolol metoprolol No metoprolol [place] succinate succinate succinate [facility] ER 50 mg ER 50 mg ER 50 mg Uro logy tablet,exte tablet,exte tablet,ext nded nded ended release 24 release 24 release 24 hr TAKE 1 hr TAKE 1 hr TAKE 1 TABLET BY TABLET BY TABLET BY MOUTH DAILY MOUTH DAILY MOUTH DAILY rosuvastati rosuvastati No rosuvastat [place] n 40 mg n 40 mg in [...] directed directed directed amlodipine amlodipine No amlodipine [place] 10 mg 10 mg 10 mg [facility] tablet TK 1 tablet TK 1 tablet TK Urology T PO 2 T PO 2 1 T PO 2 TIMES A DAY TIMES A DAY TIMES A DAY amlodipine amlodipine No amlodipine [place] 5 mg tablet 5 mg tablet 5 mg M etro TAKE 1 TAKE 1 tablet Urology TABLET BY TABLET BY TAKE 1 MOUTH TWICE MOUTH TWICE TABLET BY DAILY DAILY MOUTH TWICE DAILY atorvastati atorvastati No atorvastat [place] n 40 mg n 40 mg in 40 mg [facility] tablet TAKE tablet TAKE tablet Urology 1 TABLET BY 1 TABLET BY TAKE 1 MOUTH DAILY MOUTH DAILY TABLET BY MOUTH DAILY bicalutamid bicalutamid No bicalutami [place] e 50 mg e 50 mg de 50 mg [facility] tablet TAKE tablet TAKE tablet Urology 1 TABLET BY 1 TABLET BY TAKE 1 MOUTH 2 MOUTH 2 TABLET BY TIMES A DAY TIMES A DAY MOUTH 2 GENERIC GENERIC TIMES A EQUIVALENT EQUIVALENT DAY FOR CASODEX FOR CASODEX GENERIC EQUIVALENT FOR CASODEX bupropion bupropion No bupropion [place] HCl XL 150 HCl XL 150 HCl XL 150 [facility] mg 24 hr mg 24 hr mg 24 hr Uro logy tablet, tablet, tablet, extended extended extended release TK release TK release TK 2 TS PO QD 2 TS PO QD 2 TS PO QD ceftriaxone ceftriaxone No 1g ceftriaxon [place] 1 gram 1 gram e 1 gram [facility] solution solution solution Uro logy for for for injection injection injection Take 1 g by Take 1 g by Take 1 g injection injection by route. route. injection route. cephalexin cephalexin No cephalexin [place] 500 mg 500 mg 500 mg [facility] capsule capsule capsule Urolog y TAKE 1 TAKE 1 TAKE 1 CAPSULE BY CAPSULE BY CAPSULE BY MOUTH EVERY MOUTH EVERY MOUTH 8 HOURS FOR 8 HOURS FOR EVERY 8 1 DAY 1 DAY HOURS FOR 1 DAY ciprofloxac ciprofloxac No ciprofloxa [place] in 500 mg in 500 mg mayte 500 mg [facility] tablet TAKE tablet TAKE tablet Urology 1 TABLET BY 1 TABLET BY TAKE 1 MOUTH TWICE MOUTH TWICE TABLET BY DAILY FOR 5 DAILY FOR 5 MOUTH DAYS DAYS TWICE DAILY FOR 5 DAYS citalopram citalopram No citalopram [place] 40 mg 40 mg 40 mg [facility] tablet TAKE tablet TAKE tablet Urology 1 TABLET BY 1 TABLET BY TAKE 1 MOUTH DAILY MOUTH DAILY TABLET BY MOUTH DAILY clopidogrel clopidogrel No clopidogre [place] 75 mg 75 mg l 75 mg [facility] tablet TAKE tablet TAKE tablet Urology 1 TABLET BY 1 TABLET BY TAKE 1 MOUTH MOUTH TABLET BY DAILY. DAILY. MOUTH GENERIC GENERIC DAILY. EQUIVALENT EQUIVALENT GENERIC FOR PLAVIX. FOR PLAVIX. EQUIVALENT FOR PLAVIX. ezetimibe ezetimibe No ezetimibe [place] 10 mg 10 mg 10 mg [facility] tablet TAKE tablet TAKE tablet Urology 1 TABLET BY 1 TABLET BY TAKE 1 MOUTH DAILY MOUTH DAILY TABLET BY GENERIC GENERIC MOUTH EQUIVALENT EQUIVALENT DAILY FOR ZETIA FOR ZETIA GENERIC EQUIVALENT FOR ZETIA levofloxaci levofloxaci No levofloxac [place] n 750 mg n 750 mg in 750 mg Me tro tablet tablet tablet Urology losartan losartan No losartan [facility] 100 mg 100 mg 100 mg [facility] tablet TAKE tablet TAKE tablet Urology 1 TABLET BY 1 TABLET BY TAKE 1 MOUTH DAILY MOUTH DAILY TABLET BY MOUTH DAILY meclizine meclizine No meclizine [place] 12.5 mg 12.5 mg 12.5 mg [facility] tablet TAKE tablet TAKE tablet Urology 1 TABLET BY 1 TABLET BY TAKE 1 MOUTH THREE MOUTH THREE TABLET BY TIMES DAILY TIMES DAILY MOUTH NEEDED NEEDED THREE TIMES DAILY NEEDED meloxicam meloxicam No meloxicam [place] 15 mg 15 mg 15 mg [facility] tablet TK 1 tablet TK 1 tablet TK Urology T PO ONCE A T PO ONCE A 1 T PO DAY DAY ONCE A DAY methylpredn methylpredn No methylpred [place] isolone 4 isolone 4 nisolone 4 [facility] mg tablets mg tablets mg tablets Urology in a dose in a dose in a dose pack FOLLOW pack FOLLOW pack PACKAGE PACKAGE FOLLOW DIRECTIONS DIRECTIONS PACKAGE DIRECTIONS metoprolol metoprolol No metoprolol [place] succinate succinate succinate [facility] ER 100 mg [...] FOR TOPROL XL metoprolol metoprolol No metoprolol [place] succinate succinate succinate [facility] ER 50 mg ER 50 mg ER 50 mg Uro logy tablet,exte tablet,exte tablet,ext nded nded ended release 24 release 24 release 24 hr TAKE 1 hr TAKE 1 hr TAKE 1 TABLET BY TABLET BY TABLET BY MOUTH DAILY MOUTH DAILY MOUTH DAILY rosuvastati rosuvastati No rosuvastat [place] n 40 mg n 40 mg in 40 mg [facility] tablet TAKE tablet TAKE tablet Urology 1 TABLET BY 1 TABLET BY TAKE 1 MOUTH DAILY MOUTH DAILY TABLET BY GENERIC GENERIC MOUTH EQUIVALENT EQUIVALENT DAILY FOR CRESTOR FOR CRESTOR GENERIC EQUIVALENT FOR CRESTOR triamcinolo triamcinolo No triamcinol [place] ne ne one [facility] acetonide acetonide acetonide [...] directed directed directed amlodipine amlodipine No amlodipine [place] 10 mg 10 mg 10 mg [facility] tablet TK 1 tablet TK 1 tablet TK Urology T PO 2 T PO 2 1 T PO 2 TIMES A DAY TIMES A DAY TIMES A DAY amlodipine amlodipine No amlodipine [place] 5 mg tablet 5 mg tablet 5 mg M etro TAKE 1 TAKE 1 tablet Urology TABLET BY TABLET BY TAKE 1 MOUTH TWICE MOUTH TWICE TABLET BY DAILY DAILY MOUTH TWICE DAILY atorvastati atorvastati No atorvastat [place] n 40 mg n 40 mg in 40 mg [facility] tablet TAKE tablet TAKE tablet Urology 1 TABLET BY 1 TABLET BY TAKE 1 MOUTH DAILY MOUTH DAILY TABLET BY MOUTH DAILY bicalutamid bicalutamid No bicalutami [place] e 50 mg e 50 mg de 50 mg [facility] tablet TAKE tablet TAKE tablet Urology 1 TABLET BY 1 TABLET BY TAKE 1 MOUTH 2 MOUTH 2 TABLET BY TIMES A DAY TIMES A DAY MOUTH 2 GENERIC GENERIC TIMES A EQUIVALENT EQUIVALENT DAY FOR CASODEX FOR CASODEX GENERIC EQUIVALENT FOR CASODEX bupropion bupropion No bupropion [place] HCl XL 150 HCl XL 150 HCl XL 150 [facility] mg 24 hr mg 24 hr mg 24 hr Uro logy tablet, tablet, tablet, extended extended extended release TK release TK release TK 2 TS PO QD 2 TS PO QD 2 TS PO QD ceftriaxone ceftriaxone No 1g ceftriaxon [place] 1 gram 1 gram e 1 gram [facility] solution solution solution Uro logy for for for injection injection injection Take 1 g by Take 1 g by Take 1 g injection injection by route. route. injection route. cephalexin cephalexin No cephalexin [place] 500 mg 500 mg 500 mg [facility] capsule capsule capsule Urolog y TAKE 1 TAKE 1 TAKE 1 CAPSULE BY CAPSULE BY CAPSULE BY MOUTH EVERY MOUTH EVERY MOUTH 8 HOURS FOR 8 HOURS FOR EVERY 8 1 DAY 1 DAY HOURS FOR 1 DAY ciprofloxac ciprofloxac No ciprofloxa [place] in 500 mg in 500 mg mayte 500 mg [facility] tablet TAKE tablet TAKE tablet Urology 1 TABLET BY 1 TABLET BY TAKE 1 MOUTH TWICE MOUTH TWICE TABLET BY DAILY FOR 5 DAILY FOR 5 MOUTH DAYS DAYS TWICE DAILY FOR 5 DAYS citalopram citalopram No citalopram [place] 40 mg 40 mg 40 mg [facility] tablet TAKE tablet TAKE tablet Urology 1 TABLET BY 1 TABLET BY TAKE 1 MOUTH DAILY MOUTH DAILY TABLET BY MOUTH DAILY clopidogrel clopidogrel No clopidogre [place] 75 mg 75 mg l 75 mg [facility] tablet TAKE tablet TAKE tablet Urology 1 TABLET BY 1 TABLET BY TAKE 1 MOUTH MOUTH TABLET BY DAILY. DAILY. MOUTH GENERIC GENERIC DAILY. EQUIVALENT EQUIVALENT GENERIC FOR PLAVIX. FOR PLAVIX. EQUIVALENT FOR PLAVIX. ezetimibe ezetimibe No ezetimibe [place] 10 mg 10 mg 10 mg [facility] tablet TAKE tablet TAKE tablet Urology 1 TABLET BY 1 TABLET BY TAKE 1 MOUTH DAILY MOUTH DAILY TABLET BY GENERIC GENERIC MOUTH EQUIVALENT EQUIVALENT DAILY FOR ZETIA FOR ZETIA GENERIC EQUIVALENT FOR ZETIA levofloxaci levofloxaci No levofloxac [place] n 750 mg n 750 mg in 750 mg Me tro tablet tablet tablet Urology losartan losartan No losartan [place] 100 mg 100 mg 100 mg [facility] tablet TAKE tablet TAKE tablet Urology 1 TABLET BY 1 TABLET BY TAKE 1 MOUTH DAILY MOUTH DAILY TABLET BY MOUTH DAILY meclizine meclizine No meclizine [place] 12.5 mg 12.5 mg 12.5 mg [facility] tablet TAKE tablet TAKE tablet Urology 1 TABLET BY 1 TABLET BY TAKE 1 MOUTH THREE MOUTH THREE TABLET BY TIMES DAILY TIMES DAILY MOUTH NEEDED NEEDED THREE TIMES DAILY NEEDED meloxicam meloxicam No meloxicam [place] 15 mg 15 mg 15 mg [facility] tablet TK 1 tablet TK 1 tablet TK Urology T PO ONCE A T PO ONCE A 1 T PO DAY DAY ONCE A DAY methylpredn methylpredn No methylpred [place] isolone 4 isolone 4 nisolone 4 [facility] mg tablets mg tablets mg tablets Urology in a dose in a dose in a dose pack FOLLOW pack FOLLOW pack PACKAGE PACKAGE FOLLOW DIRECTIONS DIRECTIONS PACKAGE DIRECTIONS metoprolol metoprolol No metoprolol [place] succinate succinate succinate [facility] ER 100 mg [...] FOR TOPROL XL metoprolol metoprolol No metoprolol [place] succinate succinate succinate [facility] ER 50 mg ER 50 mg ER 50 mg Uro logy tablet,exte tablet,exte tablet,ext nded nded ended release 24 release 24 release 24 hr TAKE 1 hr TAKE 1 hr TAKE 1 TABLET BY TABLET BY TABLET BY MOUTH DAILY MOUTH DAILY MOUTH DAILY rosuvastati rosuvastati No rosuvastat [place] n 40 mg n 40 mg in [...] Calcium 40 MG 40 MG 40 MG Immunizations Ordered Immunization Filled Immunization Date Status Commen ts Source Name Name STEFX ESTEFANIA 2021-04-[address] 00:00[facility] FLUCELVAX QUAD 2021-04-[address] 00:00:00 [facility] FLUCELVAX QUAD 2021-04-[address] 00:00:00 [facility] FLUCFOUZIAVAX QUAD 2021-04-[address] [facility]2021-01-14 Com[facility] [place] 00:00:[place] [id number] 2021-01-14 Completed [facility]ACC[facility] 00:00:[place] [id number] 2021-01-14 Completed [facility]ACC[facility] 00:00:[place] [id number] 2021-01-14 Completed [facility]00 [facility] 2020-[facility] 00:00[facility]00 [facility] 00:00:00 [facility] 2020-06-15 Com[facility] 00:00[facility]00 [facility] 2020-[facility]15 Com[facility] VACCINATION 00:00:00 [place] [id number] 2020-05-18 Com[facility] VACCINATION 00:00:00 [place] [id number] 2020-05-18 Completed [facility] MRNA VACCINATION 00:00:00 [place] [id number] 2020-05-18 Completed [facility] VACCINATION 00:00:00 [facility] FLUCELVAX QUAD PF 2020-02-[address] 00:00:00 [facility] FLUZONE HIGH-DOSE PF 2020-02-13 Completed [...] HIGH-DOSE PF 2020-02-13 Completed [facility] 00:00:00 [facility] Prevnar 13 (PCV13) Prevnar 13 (PCV13) 2019-03-05 [facility]pleted [facility] Prevnar 13 (PCV13) Prevnar 13 (PCV13) 2019-03-05 Completed [facility] 09:[facility]:00 [facility] Prevnar 13 (PCV13) Prevnar 13 (PCV13) 2019-03-05 Completed [facility] 09:56:00 [facility] Prevnar 13 (PCV13) Prevnar 13 (PCV13) 2019-03-05 Completed [facility] 09:56:00 [facility] Prevnar 13 (PCV13) Prevnar 13 (PCV13) 2019-03-05 Completed [facility] - 09:56:00 [facility] Prevnar 13 (PCV13) Prevnar 13 (PCV13) 2019-03-05 Completed [facility] 09:56:00 [facility] Prevnar 13 (PCV13) Prevnar 13 (PCV13) 2019-03-05 Completed [facility] 09:56:00 [facility] Prevnar 13 (PCV13) Prevnar 13 (PCV13) 2019-03-05 Completed [facility] 09:56:00 [facility] Prevnar 13 (PCV13) Prevnar 13 (PCV13) 2019-03-05 Completed [facility] 09:56:00 [facility] Prevnar 13 (PCV13) Prevnar 13 (PCV13) 2019-03-05 Completed [facility] - 09:56:00 [facility] Prevnar 13 (PCV13) Prevnar 13 (PCV13) 2019-03-05 Completed [facility] - 09:56:00 [facility] Prevnar 13 (PCV13) Prevnar 13 (PCV13) 2019-03-05 Completed [facility] - 09:56:00 [facility] Prevnar 13 (PCV13) Prevnar 13 (PCV13) 2019-03-05 Completed [facility] 09:56:00 [facility] Prevnar 13 (PCV13) Prevnar 13 (PCV13) 2019-03-05 Completed [facility] 09:56:00 [facility] Prevnar 13 (PCV13) Prevnar 13 (PCV13) 2019-03-05 Completed [facility] 09:56:00 [facility] Prevnar 13 (PCV13) Prevnar 13 (PCV13) 2019-03-05 Completed [facility] 09:56:00 [facility] Prevnar 13 (PCV13) Prevnar 13 (PCV13) 2019-03-05 Completed [facility] 09:56:00 [facility] Prevnar 13 (PCV13) Prevnar 13 (PCV13) 2019-03-05 Completed [facility] 09:56:00 [facility] Prevnar 13 (PCV13) Prevnar 13 (PCV13) 2019-03-05 Completed [facility] - 09:56:00 [facility] Prevnar 13 (PCV13) Prevnar 13 (PCV13) 2019-03-05 Completed [facility] 09:56:00 [facility] Prevnar 13 (PCV13) Prevnar 13 (PCV13) 2019-03-05 Completed [facility] 09:56:00 [facility] Prevnar 13 (PCV13) Prevnar 13 (PCV13) 2019-03-05 Completed [facility] - 09:56:00 [facility] FLUZONE QUAD 2019-03-05 [facility] P[facility] 2019-03-05 Com[facility] Conjugate [facility] 00:00:00 [facility] FLUZONE QUAD 2019-03-05 Completed [facility] Pneumococcal 2019-03-05 Completed [facility] Conjugate 13-[facility]ent 00:00:00 [facility] suzanne FLUZONE QUAD 2019-03-05 Completed [facility] 00:[facility]00 [facility] Pneumococcal 2019-03-05 Completed [facility] Conjugate 13-[facility] 00:00:00 [facility] FLUZONE QUAD 2019-03-05 Completed [facility] 00:[facility]00 [facility] Pneumococcal 2019-03-05 Completed [facility] Vital Signs Vital Name Observation Time Observation Value Comments Source height 2022-06-16 08:00:00 72 [in_i] [facility] weight 2022-06-16 08:00:00 170 [lb_av] [facility] temperature 2022-06-16 08:00:00 96.5 [degF] [facility] bmi 2022-06-16 08:00:00 23.05 kg/m2 [facility] blood pressure 2022-06-16 08:00:00 138 mm[Hg] [facility] systolic [facility] blood pressure 2022-06-16 08:00:00 76 mm[Hg] [facility] - diastolic [facility] height 2022-05-18 09:40:00 72 [in_i] [facility] weight 2022-05-18 09:40:00 170.5 [lb_av] [facility] temperature 2022-05-18 09:40:00 97.8 [degF] Common [facility] bmi 2022-05-18 09:40:00 23.12 kg/m2 [facility] oximetry 2022-05-18 09:40:00 97 % [facility] respiratory rate 2022-05-18 09:40:00 17 /min [facility] blood pressure 2022-05-18 09:40:00 137 mm[Hg] Common [facility] - systolic [facility] blood pressure 2022-05-18 09:40:00 65 mm[Hg] Common [facility] - diastolic [facility] height 2022-02-13 08:10:00 72 [in_i] Common [facility] weight 2022-02-13 08:10:00 160 [lb_av] [facility] temperature 2022-02-13 08:10:00 98.2 [degF] Common [facility] bmi 2022-02-13 08:10:00 21.7 kg/m2 [facility] blood pressure 2022-02-13 08:10:00 136 mm[Hg] [facility] - systolic [facility] blood pressure 2022-02-13 08:10:00 72 mm[Hg] [facility] - diastolic [facility] height 2022-01-06 13:20:00 72 [in_i] Common [facility] weight 2022-01-06 13:20:00 158 [lb_av] [facility] temperature 2022-01-06 13:20:00 97.2 [degF] [facility] bmi 2022-01-06 13:20:00 21.43 kg/m2 [facility] height 2021-12-13 10:10:00 72 [in_i] Common [facility] weight 2021-12-13 10:10:00 158.3 [lb_av] [facility] temperature 2021-12-13 10:10:00 97.9 [degF] Common [facility] bmi 2021-12-13 10:10:00 21.47 kg/m2 [facility] 2021-12-13 10:10:00 97 % [facility] respiratory rate 2021-12-13 10:10:00 18 /min [facility] blood pressure 2021-12-13 10:10:00 139 mm[Hg] Common [facility] - systolic [facility] blood pressure 2021-12-13 10:10:00 74 mm[Hg] Common [facility] - diastolic [facility] height 2021-12-13 10:10:00 72 [in_i] Common [facility] weight 2021-12-13 10:10:00 158.3 [lb_av] [facility] temperature 2021-12-13 10:10:00 97.9 [degF] Common [facility] bmi 2021-12-13 10:10:00 21.47 kg/m2 [facility] oximetry 2021-12-13 10:10:00 97 % [facility] respiratory rate 2021-12-13 10:10:00 18 /min [facility] blood pressure 2021-12-13 10:10:00 139 mm[Hg] Common [facility] - systolic [facility] blood pressure 2021-12-13 10:10:00 74 mm[Hg] Common [facility] - diastolic [facility] height 2021-09-12 13:20:00 72 [in_i] Common [facility] weight 2021-09-12 13:20:00 158.3 [lb_av] Common [facility] temperature 2021-09-12 13:20:00 97.3 [degF] [facility] bmi 2021-09-12 13:20:00 21.47 kg/m2 [facility] oximetry 2021-09-12 13:20:00 98 % [facility] respiratory rate 2021-09-12 13:20:00 17 /min [facility] blood pressure 2021-09-12 13:20:00 136 mm[Hg] Common [facility] - systolic [facility] blood pressure 2021-09-12 13:20:00 66 mm[Hg] Common [facility] - diastolic [facility] height 2021-04-26 11:00:00 72 [in_i] [facility] weight 2021-04-26 11:00:00 160.6 [lb_av] [facility] temperature 2021-04-26 11:00:00 97.8 [degF] Common [facility] bmi 2021-04-26 11:00:00 21.78 kg/m2 [facility] oximetry 2021-04-26 11:00:00 97 % [facility] respiratory rate 2021-04-26 11:00:00 16 /min [facility] blood pressure 2021-04-26 11:00:00 137 mm[Hg] [facility] - systolic [facility] blood pressure 2021-04-26 11:00:00 65 mm[Hg] Common [facility] - diastolic [facility] BP Diastolic 2020-11-04 00:00:00 73 mm[Hg] [facility] BP Systolic 2020-11-04 00:00:00 139 mm[Hg] [facility] Body Weight 2020-11-04 00:00:00 172.4 [lb_av] [facility] Systolic blood 2022-03-21 15:50:00 162 mm[Hg] [facility] pressure Diastolic blood 2022-03-21 15:50:00 72 mm[Hg] [facility] pressure Heart rate 2022-03-21 15:50:00 54 /min [facility] Body height 2022-03-21 15:50:00 180.3 cm [facility] Body weight 2022-03-21 15:50:00 75.751 kg [facility] BMI 2022-03-21 15:50:00 23.29 kg/m2 [facility] Systolic blood 2021-06-21 14:03:00 124 mm[Hg] [facility] pressure Diastolic blood 2021-06-21 14:03:00 58 mm[facility]Hg[facility] Heart rate 2021-06-21 14:03:00 63 /min [facility] Body height 2021-06-21 14:03:00 180.3 cm [facility] Body weight 2021-06-21 14:03:00 72.576 kg [facility] BMI 2021-06-21 14:03:00 22.32 kg/m2 [facility] Systolic blood 2021-06-10 15:02:00 134 mm[Hg] [facility] pressure Diastolic blood 2021-06-10 15:02:00 59 mm[Hg] [facility] Heart rate 2021-06-10 15:02:00 65 /min [facility] Body temperature 2021-06-10 15:02:00 36.39 Clara [facility] Respiratory rate 2021-06-10 15:02:00 16 /min [facility] Oxygen saturation in 2021-06-10 15:02:00 99 /min [facility] Arterial blood by Pulse oximetry Body height 2021-06-10 13:15:00 180.3 cm [facility] Body weight 2021-06-10 13:15:00 72.802 kg [facility] BMI 2021-06-10 13:15:00 22.39 kg/m2 [facility] Procedures Procedure Date / Time Performing Clinician Source Performed US ABDOMINAL AORTA 2021-12-05 12:52:34 Manny Du [facility] MRI HEAD EXTERNAL STUDY 2021-10-17 16:21:00 Omaira Castillo [facility] [place] MRI HEAD EXTERNAL STUDY 2021-10-17 15:57:00 Omaira Castillo [facility] [place] MRI HEAD EXTERNAL STUDY 2021-10-14 20:33:00 Andreea [facility] [place] US VASCULAR EXTERNAL STUDY 2021-10-13 10:04:00 Andreea [facility] [place] XR ABD/PELVIC EXTERNAL 2021-10-12 22:27:00 Andreea [facility] [place] [facility] HEAD EXTERNAL STUDY 2021-10-11 07:17:00 Andreea [facility] [place] XR CHEST EXTERNAL STUDY 2021-10-11 06:11:00 Andreea [facility] US DUPLEX ARTERIAL LOWER 2021-10-04 15:26:25 Manny Du [facility] EXTREMITY BILATERAL ECG 12-LEAD 2021-06-21 14:06:[address] [facility] spital SURGICAL PATHOLOGY REQUEST 2021-06-10 15:03:00 [facility] RELEASE, CARPAL TUNNEL 2021-06-10 14:14:00 [facility] XR HAND 3+ VW RIGHT 2021-06-02 17:05:26 [facility] [place] INJECT CARPAL TUNNEL 2021-05-19 14:21:52 [facility] EMG 2021-05-17 18:36:56 [facility] WRIST WO CONTRAST RIGHT 2021-05-17 17:40:00 Milton Mireles [facility] XR HANDS 3 VW BILATERAL 2021-04-20 20:14:33 [facility] DOUBLE-STRANDED DNA (DSDNA) 2021-04-20 18:25:00 [facility] ANTIBODIES, CRITHIDIA CBC WITH PLATELET AND 2021-04-20 18:25:00 [facility] DIFFERENTIAL COMPREHENSIVE METABOLIC 2021-04-20 18:25:00 [facility] PANEL C-REACTIVE PROTEIN 2021-04-20 18:25:00 [facility] C4 COMPLEMENT COMPONENT 2021-04-20 18:25:00 Ali, [facility] SEDIMENTATION RATE 2021-04-20 18:25:00 Ali, [facility] URINE PROTEIN/CREATININE 2021-04-20 18:25:00 Ali, [facility] RATIO, RANDOM URINALYSIS, AUTOMATED WITH 2021-04-20 18:25:00 Ali, [facility] MICROSCOPY US CAROTID DUPLEX BILATERAL 2020-12-28 17:38:12 [facility] US ABDOMINAL AORTA 2020-11-29 13:52:35 [facility] DAO IFA, W/REFL TO 2020-10-05 14:46:00 Ali, [facility] TITER/PATTERN/CASCADE RIBONUCLEOPROTEIN ANTIBODY 2020-10-05 14:46:00 [facility], [facility] (EXTERMINATION INSPECTOR ANTIBODY) BETA-2 GLYCOPROTEIN 1 2020-10-05 14:46:00 [facility], [facility] ANTIBODIES (IGG, IGA, IGM) C4 COMPLEMENT COMPONENT 2020-10-05 14:46:00 Ali, [facility] CARDIOLIPIN ANTIBODIES 2020-10-05 14:46:00 Ali, [facility] CBC WITH PLATELET AND 2020-10-05 14:46:00 [facility], [facility] DIFFERENTIAL COMPLEMENT ACTIVITY, TOTAL 2020-10-05 14:46:00 Ali, [facility] COMPREHENSIVE METABOLIC 2020-10-05 14:46:00 [facility], [facility] PANEL C-REACTIVE PROTEIN 2020-10-05 14:46:00 Ali, [facility] [place] CYCLIC CITRULLINATED 2020-10-05 14:46:00 Ali, [facility] PEPTIDE AB, IGG DIRECT ANTIGLOBULIN TEST 2020-10-05 14:46:00 [facility], [facility] ([place]) DOUBLE-STRANDED DNA (DSDNA) 2020-10-05 14:46:00 [facility], [facility] [place] ANTIBODIES, IMMUNOASSAY LUPUS ANTICOAGULANT PANEL 2020-10-05 14:46:00 Ali, [facility] RHEUMATOID FACTOR 2020-10-05 14:46:00 Ali, [facility] [place] SEDIMENTATION RATE 2020-10-05 14:46:00 Ali, [facility] [place] URINE PROTEIN/CREATININE 2020-10-05 14:46:00 [facility], [facility] RATIO, RANDOM URINALYSIS, AUTOMATED WITH 2020-10-05 14:46:00 [facility] MICROSCOPY VITAMIN D 25 HYDROXY LEVEL 2020-10-05 14:46:00 [facility] TSH REFLEX TO T4F 2020-10-05 14:46:00 [facility] ANCA SCREEN WITH MPO AND 2020-10-05 14:46:[address] [facility] [place] [place] PR3, WITH REFLEX TO ANCA TITER CREATINE KINASE, TOTAL 2020-10-05 14:46:00 [facility] ([facility]K) ALDOLASE, SERUM 2020-10-05 14:46:00 [facility] spital ANTINUCLEAR ANTIBODIES 2020-10-05 14:46:00 [facility] TITER AND PATTERN STAGE 1 2020-10-05 14:46:00 [facility] spital INTERPRETATION 2020-10-05 14:46:00 [facility] spital PSA, TOTAL AND FREE 2020-10-04 13:40:00 [facility] MRI BRAIN WO CONTRAST 2020-09-06 16:34:13 [facility] [place] EMG 2020-09-03 15:38:21 Andreea [facility] [place] CBC WITH PLATELET AND 2020-08-26 19:09:00 [facility] DIFFERENTIAL [place] COMPREHENSIVE METABOLIC 2020-08-26 19:09:00 [facility] [place] IMMUNOFIXATION, SERUM 2020-08-26 19:09:00 [facility] [place] METHYLMALONIC ACID, SERUM 2020-08-26 19:09:00 [facility] [place] VITAMIN B1 LEVEL 2020-08-26 19:09:00 [facility] [place] VITAMIN B12 LEVEL 2020-08-26 19:09:00 [facility] Claud[place] VITAMIN E 2020-08-26 19:09:00 Omaira Castillo [facility] ospital [place]ia DAO SCREEN W IFA W REFLEX 2020-08-26 19:09:00 Omaira Castillo [facility] TO TITER [place] Hernia Repair W/mesh 2014-11-05 00:00[facility]00 [facility] Left 2013-02-05 00:00:00 [facility] Angiography of Right 2011-11-08 00:00:00 [facility] Carotid Artery Urology Coronary Artery Bypass with 2000-11-07 00:00:00 [facility] Three Urology Grafts Plan of Care Planned Activity Planned Date Details Comments Source Future Scheduled 2022-07-01 SHINGLES VACCINES (1 [facility] Test 08:45:32 of 2) [code = SHINGLES VACCINES (1 of 2)] Future Scheduled 2022-07-01 65+ PNEUMOCOCCAL [facility] Test 08:45:32 VACCINE (2 - PPSV23 if available, else PCV20) [code = 65+ PNEUMOCOCCAL VACCINE (2 - PPSV23 if available, else PCV20)] Future Scheduled 2022-07-01 COVID-19 VACCINE (4 - [facility] [place] Test 08:45:32 Booster for Moderna series) [code = COVID-19 VACCINE (4 - Booster for Moderna series)] Future Scheduled 2022-05-31 SHINGLES VACCINES (1 [facility] Test 11:15:51 of 2) [code = SHINGLES VACCINES (1 of 2)] Future Scheduled 2022-05-31 65+ PNEUMOCOCCAL [facility] Test 11:15:51 VACCINE (2 - PPSV23 if available, else PCV20) [code = 65+ PNEUMOCOCCAL VACCINE (2 - PPSV23 if available, else PCV20)] Future Scheduled 2022-05-31 COVID-19 VACCINE (4 - [facility] [place] Test 11:15:51 Booster for Moderna series) [code = COVID-19 VACCINE (4 - Booster for Moderna series)] Future Scheduled 2021-06-22 SHINGLES VACCINES (#1) [facility] Test 19:34:39 [code = SHINGLES VACCINES (#1)] Future Scheduled 2021-06-22 65+ PNEUMOCOCCAL [facility] Test 19:34:39 VACCINE (2 of 4 - PPSV23) [code = 65+ PNEUMOCOCCAL VACCINE (2 of 4 - PPSV23)] Future Scheduled 2021-06-13 SHINGLES VACCINES (#1) [facility] Test 22:18:48 [code = SHINGLES VACCINES (#1)] Future Scheduled 2021-06-13 65+ PNEUMOCOCCAL [facility] Test 22:18:48 VACCINE (2 of 4 - PPSV23) [code = 65+ PNEUMOCOCCAL VACCINE (2 of 4 - PPSV23)] Future Scheduled [U] XR CALCANEUS Memoria l Dawson Test (HEEL) 2 VWS, MIN. RIGHT 39683 12/12/2012 Routine[U] XRAY PELVIS MIN 3 VWS 85354 12/12/2012 Routine [code = [U] XR CALCANEUS (HEEL) 2 VWS, MIN. RIGHT 94198 12/12/2012 Routine[U] XRAY PELVIS MIN 3 VWS 84747 12/12/2012 Routine] Future Scheduled [U] XR CALCANEUS Memoria l [place] Test (HEEL) 2 VWS, MIN. RIGHT 40865 12/12/2012 Routine[U] XRAY PELVIS MIN 3 VWS 74700 12/12/2012 Routine [code = [U] XR CALCANEUS (HEEL) 2 VWS, MIN. RIGHT 62612 12/12/2012 Routine[U] XRAY PELVIS MIN 3 VWS 77054 12/12/2012 Routine] Encounters Start End Encounter Admission Attending Care Care Encounter Source Date/Time Date/Time Type Type Clinicians Facility Department ID 2022-06-27 Outpatient [facility] [id number] [place] 09:08:26 [id number] [facility] 2022-06-26 Outpatient [facility] [id number] [place] 15:41:22 [id number] [facility] 2022-06-24 Outpatient [facility] [id number] [place] 12:48:16 [id number] [facility] 2022-06-14 Outpatient ÁNGELA Denis [facility] [id number] [facility] 14:37:02 [facility] [id number] [place] [address] 2022-06-13 Outpatient [facility] [id number] [place] 10:07:04 [id number] [facility] 2022-06-12 Outpatient [facility] [id number] [place] 18:45:09 [id number] [facility] 2022-05-30 Outpatient Denis, STLMLC STLMLC [id number] Common 16:24:00 [facility] [address] [facility] 2022-04-12 Outpatient [facility] [id number] [place] 10:37:03 [id number] [facility] 2022-04-10 Outpatient [facility] [id number] [place] 13:49:29 [id number] [facility] 2022-03-07 Outpatient [facility] [id number] [place] 07:42:10 [id number] [facility] 2022-02-14 Outpatient [facility] [id number] [place] 14:11:14 [id number] [facility] 2022-02-08 Outpatient [facility] [id number] [place] 10:16:30 [id number] [facility] 2022-01-25 Outpatient [facility] [id number] [place] 16:18:40 [id number] [facility] 2022-01-10 Outpatient [facility] [id number] [place] 15:09:57 [id number] [facility] 2022-01-06 Outpatient Denis, STLMLC STLMLC [id number] Common 10:30:01 [facility] 2022-01-05 Outpatient [facility] [id number] [place] 10:12:22 [id number] [facility] 2022-01-04 Outpatient [facility] [id number] [place] 10:15:18 [id number] [facility] 2021-12-27 Outpatient [facility] [id number] [place] 12:14:55 [id number] [facility] 2021-12-15 Outpatient [facility] [id number] [place] 08:57:30 [id number] [facility] 2021-12-07 Outpatient [facility] [id number] [place] 21:54:01 [id number] [facility] 2021-11-23 Outpatient SHIRLEY [facility] [id number] [place] 08:13:57 FREYA [id number] [facility] 2021-11-19 Outpatient [facility] [id number] [place] 13:41:50 [id number] [facility] 2021-11-18 Outpatient Denis, STLMLC STLMLC [id number] Common 10:40:01 [facility] [address] [facility] 2021-11-18 Outpatient OKPALA, [facility] [id number] [place] 03:06:25 [facility] [id number] [facility] 2021-11-17 Outpatient OKPALA, [facility] [id number] [place] 09:02:40 [facility] [id number] [facility] 2021-10-14 Outpatient 3 Ameena ENCPL BIN [id number] [facility] 08:18:57 Domenico [facility] [place] 2021-06-08 Outpatient Denis, STLMLC [facility] [id number] Common 14:24:12 [facility] [address] [facility] 2021-06-08 Outpatient Denis, STLC [facility] [id number] Common 13:20:23 [facility] [address] [facility] 2021-06-08 Outpatient Denis, [facility] [id number] Common 13:16:53 [facility] [address] [facility] 2020-10-12 Inpatient Elective Mars, [facility] [id number] [facility] 00:00:00 [place] 54 2022-08-01 2022-08-01 Outpatient SHIRLEY, [facility] [id number] [place] 11:00:00 11:00:00 FREYA [facility] 2022-07-10 2022-07-10 Outpatient SAPPHIRE, [facility] [id number] [place] 14:45:00 14:45:00 [facility] 2022-06-29 2022-06-29 Telephone Ricki De La Fuente 1.2.840.1 [id number] Methodi 00:00:00 00:00:[address] 3.430.2.7 Hospit a .3.976121 l .8 2022-06-29 2022-06-29 Orders Ricki De La Fuente 1.2.840.1 [id number] Methodi 00:00:00 00:00:[address] 3.430.2.7 Hospit a .3.296036 l .8 2022-06-28 2022-06-28 Outpatient FULLICK, [facility] [id number] [place] 07:30:00 07:30:00 [facility] 2022-06-28 2022-06-28 Outpatient MIGEL, [facility] [id number] [place] 07:30:00 07:30:00 [facility] 2022-06-26 2022-06-26 Outpatient SAPPHIRE, [facility] [id number] [place] 14:30:00 15:37:16 [facility] 2022-06-16 2022-06-16 OFFICE STLMLC STLMLC [id number] Co mmon 00:00:00 00:00:00 VISIT [facility] PT - [facility] 4 [facility] 2022-06-16 2022-06-16 (TEL) STLMLC STLMLC [id number] Co mmon 00:00:00 00:00:00 [facility] 2022-06-13 2022-06-13 Outpatient SHIRLEY, [facility] [id number] [place] 16:00:00 16:54:02 [facility] 2022-06-12 2022-06-12 Outpatient SHIRLEY, [facility] [id number] [place] 16:00:00 16:00:00 [facility] 2022-05-25 2022-05-25 Outpatient [facility] [id number] [place] 09:30:00 10:47:14 [facility] 2022-05-22 2022-05-22 Orders Nel, 1.2.840.1 [id number] Methodi 00:00:00 00:00:00 Only Bia 96520.1.[address] 3.430.2.7 Hospit a .3.966460 l .8 2022-05-22 2022-05-22 Orders Nel, 1.2.840.1 [id number] Methodi 00:00:00 00:00:00 Only Bia 67117.1.[address] 3.430.2.7 Hospit a .3.350295 l .8 2022-05-22 2022-05-22 (TEL) STLMLC STLMLC [id number] Co mmon 00:00:00 00:00:00 [facility] 2022-05-18 2022-05-18 OFFICE STLMLC STLMLC [id number] Co mmon 00:00:00 00:00:[address] [facility] LEVEL 4 [facility] 2022-05-17 2022-05-17 (TEL) STLMLC STLMLC [id number] Co mmon 00:00:00 00:00:00 [facility] 2022-04-12 2022-04-12 Outpatient SHIRLEY, [facility] [id number] [place] 11:00:00 12:02:57 FREYA [facility] 2022-03-21 2022-03-21 Office Ana Laura, 1.2.840.1 [id number] Methodi 09:40:00 13:29:49 Visit Manny Jim 24542.1.[address] 3.430.2.7 Hospit a .3.779849 l .8 2022-03-21 2022-03-21 Office Ana Laura 1.2.840.1 [id number] Methodi 09:40:00 13:29:49 Visit Manny Jim 52843.1.[address] 3.430.2.7 Hospit a .3.238571 l .8 2022-03-21 2022-03-21 Travel 1.2.840.1 1.2.892.896 4582 743974 Methodi 00:00:00 00:00:[address] 3.430.2.7 0.2.7.3.698 Ho spita .3.401209 084.8 l .8 2022-03-21 2022-03-21 Travel 1.2.840.1 1.2.481.228 8518 774596 Methodi 00:00:00 00:00:[address] 3.430.2.7 0.2.7.3.698 Ho spita .3.122404 084.8 l .8 2022-03-09 2022-03-09 Refill Ana Laura, 1.2.840.1 [id number] 8218 Methodi 00:00:00 00:00:[address].1.[address] 3.430.2.7 Hospit a .3.287432 l .8 2022-03-09 2022-03-09 Refill Ana Laura, 1.2.840.1 [id number] 2568 Methodi 00:00:00 00:00:[address] 3.430.2.7 Hospit a .3.934503 l .8 2022-02-13 2022-02-13 OFFICE STLMLC STLMLC [id number] Co mmon 00:00:00 00:00:00 VISIT [facility] LEVEL 4 [facility] 2022-02-06 2022-02-06 (TEL) STLMLC STLMLC [id number] Co mmon 00:00:00 00:00:00 [facility] 2021-11-30 2022-01-25 Outpatient DANIEL DENIS, ENCCLR ENCCLR [id number] ENCCLR 00:00:00 00:00:00 [facility] 2022-01-13 2022-01-13 (TEL) STLMLC STLMLC [id number] Co mmon 00:00:00 00:00:00 [facility] 2022-01-10 2022-01-10 Outpatient SHIRLEY, [facility] [id number] [place] 14:00:00 15:30:16 FREYA [facility] 2022-01-09 2022-01-09 Outpatient OKPALA, [facility] [id number] [place] 14:30:00 14:30:00 [facility] 2022-01-06 2022-01-06 (TEL) STLMLC STLMLC [id number] Co mmon 00:00:00 00:00:00 [facility] 2022-01-06 2022-01-06 OFFICE STLMLC STLMLC [id number] Co mmon 00:00:00 00:00:00 VISIT EST Spir it PT LEVEL 3 [facility] 2021-12-20 2021-12-20 Office Ana Laura, 1.2.840.1 [id number] Methodi 09:15:00 15:12:59 Visit Manny Jim 52569.1.[address] 3.430.2.7 Hospit a .3.320739 l .8 2021-12-20 2021-12-20 Office Ana Laura, 1.2.840.1 [id number] Methodi 09:15:00 15:12:59 Visit Manny Jim 72428.1.[address] 3.430.2.7 Hospit a .3.448579 l .8 2021-12-20 2021-12-20 Travel 1.2.840.1 1.2.709.079 4571 027903 Methodi 00:00:00 00:00:[address] 3.430.2.7 0.2.7.3.698 Ho spita .3.591708 084.8 l .8 2021-12-20 2021-12-20 Travel 1.2.840.1 1.2.135.174 9849 180855 Methodi 00:00:00 00:00:[address] 3.430.2.7 0.2.7.3.698 Ho spita .3.057348 084.8 l .8 2021-12-13 2021-12-13 OFFICE STLMLC STLC [id number] Co mmon 00:00:00 00:00:00 VISIT Spirit ESTAB PT - [facility] LEVEL 5 [facility] 2021-12-13 2021-12-13 SUB ANNUAL STLMLC STLMLC [id number] Common 00:00:00 00:00:00 MCR [facility] WELL[facility] - [facility] VISIT [facility] 2021-12-05 2021-12-05 Outpatient ANA LAURA [facility] [id number] [place] 00:00:00 00:00:00 MANNY [address] 2021-12-05 2021-12-05 (TEL) STLMLC STLC [id number] Co mmon 00:00:00 00:00:00 [facility] 2021-11-21 2021-11-28 Inpatient 3 MARSHAL Lindquist CVA [id number] [facility] 20:06:00 12:55:00 Domenico 07[facility] itation Gaurang oliva 2021-11-27 2021-11-27 Emergency E TANO [facility] 11:10:00 18:27:00 ROSELYN JANG 2021-11-22 2021-11-22 Travel 1.2.840.1 1.2.980.909 8437 [id number] Methodi 00:00:00 00:00:[address] 3.430.2.7 0.2.7.3.698 Ho spita .3.265710 084.8 l .8 2021-11-22 2021-11-22 Travel 1.2.840.1 1.2.634.145 5938 372254 Methodi 00:00:00 00:00:[address] 3.430.2.7 0.2.7.3.698 Ho spita .3.241159 084.8 l .8 2021-11-11 2021-11-21 Inpatient E PHI [facility] 19:33:00 18:56:00 SISLAVON 2021-11-11 2021-11-11 Telephone Andreea, 1.2.840.1 [id number] Methodi 00:00:00 00:00:[address] [place] 3.430.2.7 Hospi ta .3.227028 l .8 2021-11-11 2021-11-11 Telephone Andreea, 1.2.840.1 [id number] Methodi 00:00:00 00:00:[address] [place] 3.430.2.7 Hospi ta .3.981129 l .8 2021-11-11 2021-11-11 (TEL) STLMLC STLMLC [id number] Co mmon 00:00:00 00:00:00 [facility] 2021-11-09 2021-11-09 Refjunaid Du, 1.2.840.1 [id number] 4872 Methodi 00:00:00 00:00:[address] 3.430.2.7 Hospit a .3.233516 l .8 2021-11-09 2021-11-09 Refill Du, 1.2.840.1 [id number] 9697 Methodi 00:00:00 00:00:[address] 3.430.2.7 Hospit a .3.059220 l .8 2021-11-08 2021-11-08 Telephone Andreea, 1.2.840.1 [id number] Methodi 00:00:00 00:00:[address] [place] 3.430.2.7 Hospi ta .3.963624 l .8 2021-11-08 2021-11-08 Telephone [facility], 1.2.840.1 [id number] Methodi 00:00:00 00:00:[address] [place] 3.430.2.7 Hospi ta .3.766207 l .8 2021-11-07 2021-11-07 (TEL) STLMLC STLMLC [id number] Co mmon 00:00:00 00:00:00 [facility] 2021-10-27 2021-10-27 [facility], 1.2.840.1 [id number] 2099 [id number] Methodi 21:44:53 23:59:00 Encounter Omaira 53385.1.[address] [place] 3.430.2.7 Hospi ta .3.128466 l .8 2021-10-27 2021-10-27 [facility], 1.2.840.1 [id number] 2099 [id number] Methodi 21:44:53 23:59:00 Encounter Omaira 08812.1.[address] [place] 3.430.2.7 Hospi ta .3.692513 l .8 2021-10-27 2021-10-27 [facility], 1.2.840.1 [id number] 2099 [id number] Methodi 21:41:15 21:43:00 Encounter Omaira 78770.1.[address] [place] 3.430.2.7 Hospi ta .3.520441 l .8 2021-10-27 2021-10-27 [facility], 1.2.840.1 [id number] Methodi 21:41:15 21:43:00 Encounter Omaira [address]148.1.[address] [place] 3.430.2.7 Hospi ta .3.107090 l .8 2021-10-27 2021-10-27 [facility], 1.2.840.1 [id number] Methodi 21:38:42 21:40:00 Encounter Omaira 53657.1.[address] [place] 3.430.2.7 Hospi ta .3.540884 l .8 2021-10-27 2021-10-27 [facility], 1.2.840.1 [id number] Methodi 21:38:42 21:40:00 Encounter Omaira 98358.1.[address] [place] 3.430.2.7 Hospi ta .3.076683 l .8 2021-10-27 2021-10-27 [facility], 1.2.840.1 [id number] Methodi 21:37:24 21:37:24 Encounter Omaira 55539.1.[address] [place] 3.430.2.7 Hospi ta .3.873792 l .8 2021-10-27 2021-10-27 [facility], 1.2.840.1 [id number] 2099 [id number] Methodi 21:37:24 21:37:24 Encounter Omaira 81182.1.[address] [place] 3.430.2.7 Hospi ta .3.016560 l .8 2021-10-27 2021-10-27 [facility], 1.2.840.1 [id number] 2099 [id number] Methodi 21:35:48 21:36:00 Encounter Omaira [address]687.1.[address] [place] 3.430.2.7 Hospi ta .3.986750 l .8 2021-10-27 2021-10-27 [facility], 1.2.840.1 [id number] Methodi 21:35:48 21:36:00 Encounter Omaira 97958.1.[address] [place] 3.430.2.7 Hospi ta .3.808950 l .8 2021-10-27 2021-10-27 [facility], 1.2.840.1 [id number] Methodi 21:34:26 21:34:26 Encounter Omaira 25123.1.[address] [place] 3.430.2.7 Hospi ta .3.236644 l .8 2021-10-27 2021-10-27 [facility], 1.2.840.1 [id number] Methodi 21:34:26 21:34:26 Encounter Omaira 50346.1.[address] [place] 3.430.2.7 Hospi ta .3.128204 l .8 2021-10-27 2021-10-27 [facility], 1.2.840.1 [id number] Methodi 21:30:03 21:33:00 Encounter Omaira [address]1005.1.[address] [place] 3.430.2.7 Hospi ta .3.721507 l .8 2021-10-27 2021-10-27 [facility], 1.2.840.1 [id number] 2099 [id number] Methodi 21:30:03 21:33:00 Encounter Omaira 07851.1.[address] [place] 3.430.2.7 Hospi ta .3.238530 l .8 2021-10-17 2021-10-27 Inpatient 3 MARSHAL Lindquist CVA [id number] [facility] 20:15:00 10:30:00 Domenico 0[facility] Gaurang d 2021-10-17 2021-10-17 Telemedici Ana Laura, 1.2.840.1 [id number] Methodi 14:45:00 15:04:28 ne Manny R. 76509.1.[address] 3.430.2.7 Hospit a .3.895746 l .8 2021-10-17 2021-10-17 Telemedici Ana Laura, 1.2.840.1 [id number] 093 [id number] Methodi 14:45:00 15:04:28 ne Manny R. 50863.1.[address] 3.430.2.7 Hospit a .3.515696 l .8 2021-10-15 2021-10-15 Telephone Carolyn Hayes 1.2.840.1 [id number] 2 [id number] Methodi 00:00:00 00:00:[address] 3.430.2.7 Hospit a .3.867218 l .8 2021-10-15 2021-10-15 Telephone Carolyn Hayes 1.2.840.1 [id number] 2 [id number] Methodi 00:00:00 00:00:[address] 3.430.2.7 Hospit a .3.747270 l .8 2021-10-05 2021-10-05 (TEL) [facility] [id number] Co mmon 00:00:00 00:00:00 [facility] 2021-10-04 2021-10-04 Outpatient ANA LAURA [facility] [id number] [place] 00:00:00 00:00:00 MANNY [address] 2021-10-04 2021-10-04 Travel 1.2.840.1 1.2.255.518 0719 [id number] Methodi 00:00:00 00:00:[address] 3.430.2.7 0.2.7.3.698 Ho spita .3.133834 084.8 l .8 2021-10-04 2021-10-04 Travel 1.2.840.1 1.2.635.664 0808 616417 Methodi 00:00:00 00:00:[address] 3.430.2.7 0.2.7.3.698 Ho spita .3.260804 084.8 l .8 2021-09-19 2021-09-19 (TEL) STLMLC STLMLC [id number] Co mmon 00:00:00 00:00:00 [facility] 2021-09-13 2021-09-13 Office Miles, 1.2.840.1 [id number] 1987 Methodi 12:30:00 12:59:48 Visit Moustapha Smith 65428.1.[address] 3.430.2.7 Hospit a .3.210018 l .8 2021-09-13 2021-09-13 Office Miles, 1.2.840.1 [id number] 695581 5298 Methodi 12:30:00 12:59:48 Visit Moustapha Smith 04880.1.[address] 3.430.2.7 Hospit a .3.540439 l .8 2021-09-12 2021-09-12 OFFICE STLC STLC [id number] Co mmon 00:00:00 00:00:00 VISIT [facility] LEVEL 4 [facility] 2021-09-06 2021-09-06 Sridevi Du 1.2.840.1 [id number] 223426 7755 Methodi 00:00:00 00:00:00 M[address] Jim [address]1.[address] 3.430.2.7 Hospit a .3.140729 l .8 2021-09-06 2021-09-06 Sridevi Du 1.2.840.1 [id number] 183538 9119 Methodi 00:00:00 00:00:00 Manny Jim 99865.1.[address] 3.430.2.7 Hospit a .3.734405 l .8 2021-09-02 2021-09-02 Yulisa Denson, 1.2.840.1 [id number] 615 [id number] Methodi 00:00:00 00:00:00 Only Rhoda 39790.1.[address] 3.430.2.7 Hospit a .3.309011 l .8 2021-09-02 2021-09-02 Orders Janiya, 1.2.840.1 [id number] 986 [id number] Methodi 00:00:00 00:00:00 Only Rhoda 53817.1.[address] 3.430.2.7 Hospit a .3.102091 l .8 2021-08-30 2021-08-30 Refjunaid Denson, 1.2.840.1 [id number] 102 [id number] Methodi 00:00:00 00:00:[address] 3.430.2.7 Hospit a .3.563097 l .8 2021-08-30 2021-08-30 Sridevi Denson, 1.2.840.1 [id number] 312 0544710 Methodi 00:00:00 00:00:[address] 3.430.2.7 Hospit a .3.116804 l .8 2021-08-26 2021-08-26 Sridevi Du 1.2.840.1 [id number] 669381 9265 Methodi 00:00:00 00:00:[address]265.1.[address] 3.430.2.7 Hospit a .3.470524 l .8 2021-08-26 2021-08-26 Sridevi Du 1.2.840.1 [id number] 5432 Methodi 00:00:00 00:00:[address] 3.430.2.7 Hospit a .3.558050 l .8 2021-06-28 2021-06-28 Bertha Portillo 1.2.840.1 [id number] 039 [id number] Methodi 13:20:00 13:40:34 Visit ELeta 79511.1.[address] 3.430.2.7 Hospit a .3.771562 l .8 2021-06-28 2021-06-28 Travel 1.2.840.1 1.2.938.048 1285 905884 Methodi 00:00:00 00:00:[address] 3.430.2.7 0.2.7.3.698 Ho spita .3.211018 084.8 l .8 2021-06-21 2021-06-21 Office Ana Laura 1.2.840.1 [id number] 863647 8062 Methodi 07:51:10 12:33:18 Visit Manny Jim 86452.1.[address] 3.430.2.7 Hospit a .3.868140 l .8 2021-06-21 2021-06-21 Travel 1.2.840.1 1.2.259.882 1099 965832 Methodi 00:00:00 00:00:[address] 3.430.2.7 0.2.7.3.698 Ho spita .3.889364 084.8 l .8 2021-06-16 2021-06-16 Refill Ana Laura 1.2.840.1 [id number] 428847 9216 Methodi 00:00:00 00:00:00 Manny Jim [address]66.1.[address] 3.430.2.7 Hospit a .3.507830 l .8 2021-06-10 2021-06-10 Surgery Bertha Santana 1.2.840.1 [id number] 361 [id number] Methodi 09:00:00 09:40:[address] 3.430.2.7 Hospit a .3.018376 l .8 2021-06-10 2021-06-10 Anesthesia Suyapa Day 1.2.840.1 [id number] Methodi 08:14:00 08:38:00 Event Rj Yoder 13558.1.[address] 3.430.2.7 Hospit a .3.523214 l .8 2021-06-10 2021-06-10 [facility] BERTHA SANTANA [facility] 021 [id number] 3524 [place] 00:00:00 00:00:00 Encounter [address] 2021-06-08 2021-06-08 Refill Janiya, 1.2.840.1 [id number] 225 [id number] Methodi 00:00:00 00:00:[address] 3.430.2.7 Hospit a .3.238131 l .8 2021-06-08 2021-06-08 Refill Ana Laura, 1.2.840.1 [id number] 322860 0214 Methodi 00:00:00 00:00:00 Manny Jim [address]19.1.[address] 3.430.2.7 Hospit a .3.945879 l .8 2021-06-02 2021-06-02 Office Bertha Santana 1.2.840.1 [id number] 850 [id number] Methodi 09:41:51 12:05:20 Visit ELeta 31971.1.[address] 3.430.2.7 Hospit a .3.576234 l .8 2021-06-02 2021-06-02 Outpatient BERTHA SANTANA [facility] [id number] [place] 00:00:00 00:00:[address] 2021-06-02 2021-06-02 Prep for Titus, 1.2.840.1 [id number] 05938 Methodi 00:00:00 00:00:00 Surgery Mahi 77819.1.[address] 3.430.2.7 Hospit a .3.795498 l .8 2021-06-02 2021-06-02 Documentat Charlie, 1.2.840.1 [id number] 21 [id number] Methodi 00:00:00 00:00:00 ion Wanda 91184.1.[address] 3.430.2.7 Hospit a .3.711176 l .8 2021-06-02 2021-06-02 Travel 1.2.840.1 1.2.353.092 3590 318661 Methodi 00:00:00 00:00:[address] 3.430.2.7 0.2.7.3.698 Ho spita .3.724384 084.8 l .8 2021-06-02 2021-06-02 Outpatient BERTHA SANTANA [facility] 2100 [id number] [place] 00:00:00 00:00:[address] 2021-05-19 2021-05-19 Office Bertha Santana 1.2.840.1 [id number] 726 [id number] Methodi 08:03:10 08:35:[address]1.[address] 3.430.2.7 Hospit a .3.752173 l .8 2021-05-19 2021-05-19 Travel 1.2.840.1 1.2.876.521 8245 856880 Methodi 00:00:00 00:00:[address] 3.430.2.7 0.2.7.3.698 Ho spita .3.523312 084.8 l .8 2021-05-17 2021-05-17 [facility] Milton Mireles 1.2.840.1 [id number] 21 [id number] Methodi 09:57:39 23:59:00 [address] 98882.1.[address] 3.430.2.7 Hospit a .3.930338 l .8 2021-05-17 2021-05-17 [facility] Milton Mireles 1.2.840.1 [id number] 21 [id number] Methodi 09:31:37 09:56:[address] 19705[address]1.[address] 3.430.2.7 Hospit a .3.497198 l .8 2021-05-17 2021-05-17 Travel 1.2.840.1 1.2.040.243 8404 123562 Methodi 00:00:00 00:00:[address] 3.430.2.7 0.2.7.3.698 Ho spita .3.962634 084.8 l .8 2021-05-17 2021-05-17 Outpatient MILTON MIRELES [facility] 2100 [id number] [place] 00:00:00 00:00:[address] 2021-05-16 2021-05-16 Refill Ana Laura 1.2.840.1 [id number] 3256 Methodi 00:00:00 00:00:[address] 3.430.2.7 Hospit a .3.678413 l .8 2021-05-10 2021-05-10 Office JackelineBertha marcanoLeta 1.2.840.1 [id number] Methodi 09:28:40 10:44:11 Visit Milton Mireles 21644.1.[address] 3.430.2.7 Hospit a .3.644280 l .8 2021-05-10 2021-05-10 Travel 1.2.840.1 1.2.506.035 5723 406684 Methodi 00:00:00 00:00:[address] 3.430.2.7 0.2.7.3.698 Ho spita .3.124763 084.8 l .8 2021-05-03 2021-05-03 Travel 1.2.840.1 1.2.159.471 7637 712799 Methodi 00:00:00 00:00:[address] 3.430.2.7 0.2.7.3.698 Ho spita .3.144281 084.8 l .8 2021-05-03 2021-05-03 (TEL) STLMLC STLMLC [id number] Co mmon 00:00:00 00:00:00 [facility] 2021-04-27 2021-04-27 Orders Susan Angel 1.2.840.1 [id number] 2100 [id number] Methodi 00:00:00 00:00:[address] 3.430.2.7 Hospit a .3.559463 l .8 2021-04-26 2021-04-26 OFFICE STLMLC STLMLC [id number] Co mmon 00:00:00 00:00:00 VISIT Shay CUELLAR PT - CHI LEVEL 4 [facility] 2021-04-20 2021-04-20 Office Susan Angel 1.2.840.1 [id number] 2099 [id number] Methodi 11:14:54 13:12:[address] 3.430.2.7 Hospit a .3.505775 l .8 2021-04-20 2021-04-20 Lab Susan Angel 1.2.840.1 [id number] 2099 [id number] Methodi 12:16:49 12:21:[address] 3.430.2.7 Hospit a .3.221038 l .8 2021-04-20 2021-04-20 Travel 1.2.840.1 1.2.019.538 5776 542964 Methodi 00:00:00 00:00:[address] 3.430.2.7 0.2.7.3.698 Ho spita .3.693526 084.8 l .8 2021-04-20 2021-04-20 Outpatient SUSAN ANGEL [facility] [id number] [place] 00:00:00 00:00:[address] 2021-03-25 2021-03-25 Telephone Peter 1.2.840.1 [id number] 2099 [id number] Methodi 00:00:00 00:00:[address] 3.430.2.7 Hospit a .3.696777 l .8 2021-03-07 2021-03-07 Refill Ana Laura 1.2.840.1 [id number] 937166 2507 Methodi 00:00:00 00:00:[address] 3.430.2.7 Hospit a .3.092881 l .8 2021-03-07 2021-03-07 Refill Jose 1.2.840.1 [id number] 4039 Methodi 00:00:00 00:00:00 [address] Smith [address]605.1.[address] 3.430.2.7 Hospit a .3.129059 l .8 2021-02-21 2021-02-21 Refill Ana Laura, 1.2.840.1 [id number] 0434 Methodi 00:00:00 00:00:[address] 3.430.2.7 Hospit a .3.396680 l .8 2021-01-07 2021-01-07 Outpatient STLMLC STLC [id number] [place] 00:00:00 00:00:00 [facility] 2021-01-07 2021-01-07 Outpatient STLMLC STLMLC [id number] [place] 00:00:00 00:00:00 [facility] 2020-12-28 2020-12-28 Travel 1.2.840.1 1.2.882.926 1220 [id number] Methodi 00:00:00 00:00:[address] 3.430.2.7 0.2.7.3.698 Ho spita .3.620374 084.8 l .8 2020-12-28 2020-12-28 [facility] [id number] 152 [place] 00:00:00 00:00:00 MANNY [address] 2020-12-21 2020-12-21 Office Ana Laura, 1.2.840.1 [id number] 9565 Methodi 12:20:32 16:33:51 Visit Manny Jim 59858.1.[address] 3.430.2.7 Hospit a .3.415950 l .8 2020-12-21 2020-12-21 Outpatient Van_T [facility] [id number]- 202 [place] 08:46:00 08:46:00 63072 [facility] 2020-12-21 2020-12-21 Travel 1.2.840.1 1.2.782.441 2805 083294 Methodi 00:00:00 00:00:[address] 3.430.2.7 0.2.7.3.698 Ho spita .3.723607 084.8 l .8 2020-12-21 2020-12-21 Telephone Ricki De La Fuente 1.2.840.1 [id number] 21 [id number] Methodi 00:00:00 00:00:[address] 3.430.2.7 Hospit a .3.993363 l .8 2020-12-20 2020-12-20 Outpatient Van_T [facility] [id number]- 202 [place] 09:12:00 09:12:00 08143 [facility] 2020-12-17 2020-12-17 Outpatient Van_T [facility] HMU [id number] [place] 12:36:00 12:36:00 [facility] 2020-12-16 2020-12-16 Outpatient Van_T [facility] HMU [id number]- 202 [place] 10:36:00 10:36:00 [facility] 2020-12-16 2020-12-16 Outpatient Roc Viveros U U 83fb [id number] 00:00:00 00:00:00 Albert Valdivia [id number] 2020-12-16 2020-12-16 Roc Price [facility] [place] - [id number] 5 [place] 00:00:00 00:00:00 Shea Viveros MD: [facility] [facility], [address] [place] [address] , Ph. 2020-12-15 2020-12-15 Outpatient Van_T [facility] [id number]- 202 [place] 03:10:00 03:10:00 59772 [facility] 2020-12-10 2020-12-10 Outpatient Van_T [facility] HM[facility] [id number]- 202 [place] 09:51:00 09:51:00 74142 [facility] 2020-12-09 2020-12-09 Outpatient Van_T [facility] HM[facility] [id number]- 202 [place] 01:46:00 01:46:00 04334 [facility] 2020-12-09 2020-12-09 Telephone Ana Laura, 1.2.840.1 [id number] 2100 [id number] Methodi 00:00:00 00:00:[address] 3.430.2.7 Hospit a .3.036452 l .8 2020-12-09 2020-12-09 [facility] Albert [facility] [place] - [id number] 9 [place] 00:00:00 00:00:00 Shea Viveros MD: [facility] [address] [facility] [place], - [address] [place] [address] , Ph. 2020-12-09 2020-12-09 Outpatient Roc Viveros [facility] 8508 [id number] 00:00:00 00:00:00 Albert Valdivia [id number] 2020-11-29 2020-11-29 Outpatient ANA LAURA [facility] [id number] 983 [place] 00:00:00 00:00:00 MANNY Garcia[address] [facility] 2020-11-24 2020-11-24 Refill Ana Laura, 1.2.840.1 [id number] 2551 Methodi 00:00:00 00:00:[address] 3.430.2.7 Hospit a .3.141036 l .8 2020-11-17 2020-11-17 Yulisa Denson 1.2.840.1 [id number] 530 [id number] Methodi 00:00:00 00:00:00 Only Rhoda 92196.1.[address] 3.430.2.7 Hospit a .3.167106 l .8 2020-11-09 2020-11-09 Outpatient Van_T [facility] [id number] [place] 03:36:00 03:36:00 56659 [facility] 2020-11-04 2020-11-04 Outpatient Van_T [facility] [id number] [place] 02:39:00 02:39:00 62471 [facility] 2020-11-04 2020-11-04 Outpatient Roc Viveros [facility] [id number] 00:00:00 00:00:00 Albert Valdivia [id number] 2020-11-04 2020-11-04 Roc Price [facility] [place] - [id number] 4 [place] 00:00:00 00:00:00 Shea Viveros MD: [facility] 4[address] [facility] [place], [place] [address] , Ph. 2020-11-03 2020-11-03 Outpatient Van_T [facility] [id number]- 202 [place] 10:05:00 10:05:00 46039 [facility] 2020-11-02 2020-11-02 Sridevi Du, 1.2.840.1 [id number] 1258 Methodi 00:00:00 00:00:[address] 3.430.2.7 Hospit a .3.403472 l .8 2020-11-02 2020-11-02 Outpatient STLMLC STL[facility]C [id number] [place] 00:00:00 00:00:00 [facility] 2020-11-01 2020-11-01 Outpatient STLMLC STLMLC [id number] [place] 00:00:00 00:00:00 [facility] 2020-10-20 2020-10-20 Sridevi Du 1.2.840.1 [id number] [id number] 8087 Methodi 00:00:00 00:00:[address] 3.430.2.7 Hospit a .3.656336 l .8 2020-10-19 2020-10-19 Office Susan Angel 1.2.840.1 [id number] 2099 653683 Methodi 10:25:06 11:05:[address] 3.430.2.7 Hospit a .3.027935 l .8 2020-10-19 2020-10-19 Travel 1.2.840.1 1.2.575.621 3418 302100 Methodi 00:00:00 00:00:[address] 3.430.2.7 0.2.7.3.698 Ho spita .3.396738 084.8 l .8 2020-10-07 2020-10-07 Telephone Todd, 1.2.840.1 [id number] 2100 [id number] Methodi 00:00:00 00:00:[address] 3.430.2.7 Hospit a .3.759563 l .8 2020-10-05 2020-10-05 Lab Susan Angel 1.2.840.1 [id number] 2099 729248 Methodi 10:03:48 10:08:[address] 3.430.2.7 Hospit a .3.951686 l .8 2020-10-05 2020-10-05 Office Omaira Castillo 1.2.840. 1 [id number] Methodi 08:42:07 09:42:07 Visit Susan Angel 45232.1.[address] 3.430.2.7 Hospit a .3.946362 l .8 2020-10-04 2020-10-04 Office Jose 1.2.840.1 [id number] 936009 2706 Methodi 07:33:51 07:48:51 Visit Moustapha Smith 73803.1.[address] 3.430.2.7 Hospit a .3.263676 l .8 2020-10-04 2020-10-04 Travel 1.2.840.1 1.2.067.884 0083 481664 Methodi 00:00:00 00:00:[address] 3.430.2.7 0.2.7.3.698 Ho spita .3.904472 084.8 l .8 2020-09-21 2020-09-21 Office Miki Castillo2.840.1 [id number] 30953 24575 Methodi 08:13:45 08:33:45 Visit Omaira 85702.1.[address] Claudia 3.430.2.7 Hospi ta .3.359658 l .8 2020-09-21 2020-09-21 Orders Ricki De La Fuente 1.2.840.1 [id number] 2099 [id number] Methodi 00:00:00 00:00:[address] 3.430.2.7 Hospit a .3.648937 l .8 2020-09-21 2020-09-21 Travel 1.2.840.1 1.2.399.628 5421 000587 Methodi 00:00:00 00:00:[address] 3.430.2.7 0.2.7.3.698 Ho spita .3.451362 084.8 l .8 2020-09-14 2020-09-14 Telephone Jose, 1.2.840.1 [id number] 2099 [id number] Methodi 00:00:00 00:00:00 [address] Smith [address]654.1.[address] 3.430.2.7 Hospit a .3.202601 l .8 2020-09-06 2020-09-06 Outpatient ANDREEA [facility] [id number] [place] 00:00:00 00:00:00 OMAIRA [address] 2020-09-03 2020-09-03 Outpatient ANDREEA [facility] [id number] 9429 [place] 00:00:00 00:00:00 OMAIRA [address] 2020-09-03 2020-09-03 Travel 1.2.840.1 1.2.774.917 3986 348740 Methodi 00:00:00 00:00:[address] 3.430.2.7 0.2.7.3.698 Ho spita .3.114285 084.8 l .8 2020-08-26 2020-08-26 Lab Andreea 1.2.840.1 [id number] 27280 Methodi 14:20:44 14:25:[address] Claudia 3.430.2.7 Hospi ta .3.193626 l .8 2020-08-26 2020-08-26 Office Andreea, 1.2.840.1 [id number] 39556 89626 Methodi 12:54:06 14:16:01 Visit Omaira 93534.1.[address] Claudia 3.430.2.7 Hospi ta .3.698329 l .8 2020-08-26 2020-08-26 Travel 1.2.840.1 1.2.639.368 5657 237208 Methodi 00:00:00 00:00:[address] 3.430.2.7 0.2.7.3.698 Ho spita .3.250798 084.8 l .8 2020-08-16 2020-08-16 Orders Ricki De La Fuente 1.2.840.1 [id number] 2099 260424 Methodi 00:00:00 00:00:[address] 3.430.2.7 Hospit a .3.943552 l .8 2020-08-06 2020-08-06 Telephone Ricki De La Fuente 1.2.840.1 [id number] Methodi 00:00:00 00:00:[address] 3.430.2.7 Hospit a .3.855825 l .8 2020-08-05 2020-08-05 Orders Ricki De La Fuente 1.2.840.1 [id number] 2099 [id number] Methodi 00:00:00 00:00:[address] 3.430.2.7 Hospit a .3.500877 l .8 2020-06-15 2020-07-26 Clinical 1.2.840.1 [id number] 62712 35650 Methodi 08:37:10 14:40:[address] 3.430.2.7 Hospit a .3.047334 l .8 2020-07-26 2020-07-26 Refill Ana Laura, 1.2.840.1 [id number] [id number] 4610 Methodi 00:00:00 00:00:[address] 3.430.2.7 Hospit a .3.205778 l .8 2020-07-26 2020-07-26 Refill Du, 1.2.840.1 [id number] 155453 8842 Methodi 00:00:00 00:00:[address] 3.430.2.7 Hospit a .3.735196 l .8 2020-07-22 2020-07-22 Travel 1.2.840.1 1.2.919.284 9487 383176 Methodi 00:00:00 00:00:[address] 3.430.2.7 0.2.7.3.698 Ho spita .3.352093 084.8 l .8 2020-07-13 2020-07-13 Telephone Du, 1.2.840.1 [id number] 2100 [id number] Methodi 00:00:00 00:00:[address] 3.430.2.7 Hospit a .3.252299 l .8 2020-07-06 2020-07-06 Office Miles, 1.2.840.1 [id number] 1829 Methodi 14:40:46 14:55:46 Visit Moustapha Smith 59509.1.[address] 3.430.2.7 Hospit a .3.141115 l .8 2020-07-06 2020-07-06 Travel 1.2.840.1 1.2.824.121 1296 848548 Methodi 00:00:00 00:00:[address] 3.430.2.7 0.2.7.3.698 Ho spita .3.870617 084.8 l .8 2020-06-29 2020-06-29 Telephone Ana Laura 1.2.840.1 [id number] 2099 308609 Methodi 13:47:06 14:02:06 Consult Manny Jim 65546.1.[address] 3.430.2.7 Hospit a .3.224178 l .8 2020-06-29 2020-06-29 Orders Leisa Ricki 1.2.840.1 [id number] 2099 616559 Methodi 00:00:00 00:00:[address] 3.430.2.7 Hospit a .3.929360 l .8 2020-06-21 2020-06-21 Telephone Jose, 1.2.840.1 [id number] 2099 782804 Methodi 00:00:00 00:00:00 Moustapha Smith 81489.1.[address] 3.430.2.7 Hospit a .3.896891 l .8 2020-05-18 2020-05-18 Outpatient [facility] [id number] 997 [place] 00:00:00 00:00:[address] 2020-03-18 2020-03-18 Outpatient 3 MarsBismark eason [facility] [id number] 12:46:00 12:46:[address] [facility] 2020-03-16 2020-03-16 Outpatient MILES, [facility] [id number] [place] 00:00:00 00:00:00 MOU[address]HA [address] 2020 2020 Outpatient MILES, [facility] [id number] 058 [place] 00:00:00 00:00:00 MOUSTAPHA [address] 2020-01-26 2020-01-26 Outpatient MILES, [facility] [id number] 629 [place] 00:00:00 00:00:[address] MOU[address]APHA [address] 2020-01-26 2020-01-26 Outpatient MILES, [facility] [id number] [place] 00:00:00 00:00:[address] 2020-01-01 2020-01-01 Outpatient DU, [facility] [id number] 491 [place] 00:00:00 00:00:00 MANNY [address] 2019-12-30 2019-12-30 Outpatient DU, [facility] [id number] 454 [place] 00:00:00 00:00:00 MANNY [address] 2019-12-18 2019-12-18 Outpatient COH COH PDPFEIM SMO COH 00:00:00 00:00:00 [id number] 123 2019-10-07 2019-10-07 Outpatient [facility] [id number] [place] 00:00:00 00:00:[address] 2019-10-02 2019-10-02 Outpatient JOSE, [facility] [id number] 006 [place] 00:00:00 00:00:00 MOUSTAPHA [address] 2019-09-29 2019-09-29 Outpatient JOSE, [facility] [id number] [place] 00:00:00 00:00:00 MOUSTAPHA [address] 2019-09-29 2019-09-29 Outpatient JOSE, [facility] [id number] [place] 00:00:00 00:00:00 MOUSTAPHA [address] 2019-09-18 2019-09-18 Outpatient JOSE, [facility] [id number] 233 [place] 00:00:00 00:00:00 MOUSTAPHA [address] 2019-09-18 2019-09-18 Outpatient [facility] [id number] 035 [place] 00:00:00 00:00:[address] 2019-08-29 2019-08-29 Outpatient ANA LAURA, [facility] [id number] 449 [place] 00:00:00 00:00:00 MANNY [address] 2019-08-25 2019-08-25 Outpatient [facility] [id number] 215 [place] 00:00:00 00:00:[address] 2019-07-29 2019-07-29 Outpatient JOSE, [facility] [id number] [place] 00:00:00 00:00:00 MOUSTAPHA [address] 2019-07-24 2019-07-24 Outpatient DIMPLE, [facility] [id number] 138 [place] 00:00:00 00:00:00 CHONG [address] 2019-05-30 2019-05-30 Outpatient JOSE, [facility] [id number] 197 [place] 00:00:00 00:00:00 MOUSTAPHA [address] 2019-04-27 2019-04-27 Outpatient ONAIWU, [facility] 811 [id number] 667 [place] 00:00:00 00:00:00 LIBERTY Watters[address] [facility] 2019-02-13 2019-02-14 Outpatient ANA LAURA, [facility] [id number] [place] 00:00:00 00:00:00 MANNY Ontiveros [facility] 2013-08-06 2013-06-05 FURenay, CRIS MEGIE [id number] M [place] 07:40:00 16:18:01 Provider: SAMMIE Lawrence, Status: Pen, Time: 7:40 AM 2013-06-05 2013-06-05 AUDIT CRIS WEAVERIE [id number] M [place] 10:18:01 16:18:01 maria elena Osman 2012-12-07 2012-12-08 AUDIT CRIS WEAVERIE [id number] M [place] 19:04:39 00:04:17 maria elena Osman 2012-10-31 2012-10-05 POP, CRIS WEAVERIE [id number] M [place] 09:30:00 15:44:57 Provider: DEONDRE Daigle, Status: Pen, Time: 9:30 AM 2012-10-05 2012-10-05 AUDIT MEGKENYON WEAVERIE [id number] M [place] 10:45:16 15:44:57 maria elena Osman Results Test Description Test Time Test Comments Results Result Comments Source ECG 12 lead 2021-06-21 20:04:42 Test Item Value Reference Range Interpretation Comme nts Ventricular rate (test code = 253) Atrial rate (test code = 255) [place] interval (test code = 266) QRSD interval (test code = 260) QT interval (test code = 264) QTC interval (test code = 265) P axis 1 (test code = 267) QRS axis 1 (test code = 268) T wave axis (test code = 270) EKG impression (test code = 273) Normal sinus rhythm-Nonspecific ST and T [facility] [id number] 01:20:20 Test Item Value Reference Range Interpretation Comments Case number (test code = [id number]) Surgical pathology See link below for report (test code = PDF Lab Report [id number]) Result status (test code This is Final Report = [id number]) for [id number] [facility] metabolic [id number] 17:23:00 Test Item Value Reference Interpretation Comments Range Glucose (test code 109 mg/dL 65-99 H Fasting reference = 2345-7) interval For madison lin without known diabetes, a glu cose valuebetween 10 0 and 125 mg/dL is consistent withprediabetes and should be confi rmed with afollow-up test. BUN (test code = 24 mg/dL - 3094-0) Creatinine (test 1.68 mg/dL 0.70-1.11 H For patient s >49 code = 2160-0) years of age, the reference limit for Creatinine is approximately 1 3% higher for peopleidentifie d as -Vivi n. EGFR Non-Afr. See_Comment L [Automated me ssage] [place] (test code The syst em which = 2809) generated this result transmit tisha reference range : > OR = 60 mL/min/1.73m2. The reference range was not used to interpret this result as normal/abnormal . EGFR See_Comment L [Automated mes nik] [place] (test code The syst em which = 2016) generated this result transmit tisha reference range [...] . Sodium (test code = 137 mmol/L 122-025 7359-2) Potassium (test 4.5 mmol/L 3.5-5.3 code = 2823-3) Chloride (test code 102 mmol/L 98-110 = 2075-0) CO2 (test code = 27 mmol/L 20-32 2027-) Calcium (test code 9.3 mg/dL 8.6-10.3 = 79506-9) Protein (test code 6.8 g/dL 6.1-8.1 = 2885-2) Albumin, S (test 4.1 g/dL 3.6-5.1 code = 1751-7) Globulin, total See_Comment [Automated message] (test code = [place] [address]-9) generated this result transmit tisha reference range [...] RAC) Organization Information: Site ID: RGA [facility] Address: [address] [place] [phone] Director: Meera Mejia Lab Interpretation Abnormal (test code = 59799-4) [facility] [id number] 17:23:00 Test Item Value Reference Range Interpretation Comments CRP (test code = 0.8 mg/L <8.0 1987-09) RAC (test code = Performing Organization RAC) Information: Site ID: A [facility] Address: [address] [place] [phone] Director: Meera [place] [address] complement [id number] 17:23:00 Test Item Value Reference Range Interpretation Comments C4 complement 24 mg/dL Reference Rang e<1 (test code = year: Not 4497-2) established1-14 years: - 80 years: 15-53> o r = 80 years Not established RAC (test code = Performing RAC) Organization Information: Site ID: [facility] Name: [facility] Address: [address] [place] [phone] Director[facility]ge [facility] [id number] 17:23:00 Test Item Value Reference Range Interpretation Comments C3 complement 142 mg/dL Reference Rang e<1 (test code = year: Not 4485-9) established1-14 years: 80-53[address] -80 years: 82-185> or = 80 years Not established RAC (test code = Performing RAC) Organization Information: Site ID: RGA [facility] Address: [address] [place] [phone] Director: Meera Mejia [facility] with platelet and [id number] 17:23:00 Test Item Value Reference Range Interpretation Comments WBC (test code = See_Comment [Automated 6690-2) message] The system which generated this result transmitted reference range : 3.8 - 10.8 Thousand/uL. Th e reference range was not used to interpret this result as normal/abnormal . RBC (test code = See_Comment L [Automated 159-8) message] The system which generated this result [...] [Automated absolute (test code message] The = 831-8) system which generated this result transmitted reference [...] RAC) Organization Information: Site ID: RGA Name: [facility] Lab Address: [address] [place], [place] [phone] Director: Meera Mejia Lab Interpretation Abnormal (test code = 80315-2) [facility] [id number] 17:23:00 Test Item Value Reference Range Interpretation Comments Sedimentation rate 33 mm/h See_Comment H [Automat ed (test code = 4537-7) message ] The system which generated this result transmitted reference range : < OR = 20. The reference range was not used to interpret this result as normal/abnormal . RAC (test code = Performing RAC) Organization Information: Site ID: RGA Name: [facility] Address: [address] [place] [phone] Director: Meera Mejia Lab Interpretation Abnormal (test code = 20960-5) [facility] automated with [id number] 17:23:00 Test Item Value Reference Range Interpretation Comments Color, UA (test code DARK YELLOW YELLOW = 5778-6) Appearance (test CLEAR CLEAR code = 5767-9) Specific gravity, 1.001-1.035 urine (test code = 5811-5) pH, urine (test code 5.0-8.0 = 5803-2) Glucose, urine (test NEGATIVE NEGATIVE code = 85995-5) Bilirubin, UA (test NEGATIVE NEGATIVE Verified by code = 5770-3) repeat analys is. Ketones, UA (test TRACE NEGATIVE A code = 2514-8) Occult blood, urine NEGATIVE NEGATIVE (test code = 5794-3) Protein, UA (test TRACE NEGATIVE A code = 59814-1) Nitrite, UA (test NEGATIVE NEGATIVE code = [...] code = NONE SEEN See_Comment [Autom ated 57840-2) message] The system which generated this result transmitted reference range : < OR = 2 /HPF. The reference range was not used to interpr et this result as normal/abnormal . Squamous epithelial 0-5 See_Comment [Automa tisha cells, UA (test code message ] The = 39169-7) system which generated this result transmitted reference [...] RAC) Organization Information: Site ID: RGA Name: [facility] Address: [address] [place] [phone] Director: Meera Mejia Lab Interpretation Abnormal (test code = 15243-2) [facility]creatinine [facility], [id number] 17:23:00 Test Item Value Reference Range Interpretation [...] RAC) Organization Information: Site ID: RGA Name: [facility] Address: [address] [place] [phone] Director: Meera Mejia Lab Interpretation Abnormal (test code = 78945-8) [facility] (dsDNA) antibodies, [id number] 17:23:00 Test Item Value Reference Range Interpretation Comments dsDNA Ab, Crithidia NEGATIVE NEGATIVE ([facility]) (test code = 6457-6) RAC (test code = RAC) Performing Organization Information: Site ID: EZ Name: [employer], Address: [address] [place] [phone] Director: Katrin Curran MD,PhD,TYESHA [facility] CenterComprehensive metabolic [id number] 17:23:00 Test Item Value Reference Interpretation Comments [...] EGFR Non-Afr. See_Comment L [Automated me ssage] Central African (test code The syst em which = 2775) generated this result transmit tisha reference range : > OR = 60 mL/min/1.73m2. The reference range was not used to interpret this result as normal/abnormal . EGFR See_Comment L [Automated mes nik] Central African (test code The syst em which = 2774) generated this result transmit tisha reference range : > OR = 60 mL/min/1.73m2. The reference range was not used to interpret this result as normal/abnormal . BUN/creatinine See_Comment [Automated m essage] ratio (test code = The [employer] which 3097-3) generated this result transmit tisha reference range : 6 - 22 (calc). The reference range was not used to interpret this result as normal/abnormal . Sodium (test code = 137 mmol/L 690-754 8590-2) Potassium (test 4.5 mmol/L 3.5-5.3 code = 2823-3) Chloride (test code 102 mmol/L 98-110 = 2075-0) CO2 (test code = 27 mmol/L 20-32 2027-9) Calcium (test code 9.3 mg/dL 8.6-10.3 = 16375-2) Protein (test code 6.8 g/dL 6.1-8.1 = 2885-2) Albumin, S (test 4.1 g/dL 3.6-5.1 code = 1751-7) Globulin, total See_Comment [Automated message] (test code = [place] [address]-5) generated this result transmit tisha reference range : 1.9 - 3.7 g/dL (eli c). The reference r olivia was not used to interpret this result as normal/abnormal . Albumin/globulin See_Comment [Automated message] ratio (test code = The syste which 1759-0) generated this result transmit tisha [...] RAC) Organization Information: Site ID: RGA [facility] Address: [address] [place] [phone] Director: Meera Mejia Lab Interpretation Abnormal (test code = 10947-1) [facility]-reactive [id number] 17:23:00 Test Item Value Reference Range Interpretation Comments CRP (test code = 0.8 mg/L <8.0 1987-09) RAC (test code = Performing Organization RAC) Information: Site ID: RGA [facility]: [facility] Address: [address] [place] [phone] Director: Meera [place] [address] complement [id number] 17:23:00 Test Item Value Reference Range Interpretation Comments C4 complement 24 mg/dL Reference Rang e<1 (test code = year: Not 4497-06) established1-14 years: - 80 years: 15-53> o r = 81 years Not established RAC (test code = Performing RAC) Organization Information: Site ID: A Name: [facility] Address: [address] [place] [phone] Director: Meera [place] [address] complement [id number] 17:23:00 Test Item Value Reference Range Interpretation Comments C3 complement 142 mg/dL Reference Rang e<1 (test code = year: Not 9) established-14 years: -80 years: 82-185> or = 80 years Not established RAC (test code = Performing RAC) Organization Information: Site ID: A Name: [facility] Address: [address] [place] [phone] Director: Meera MillerTexas [facility] Pres[facility] of RockwallCBC with platelet and [id number] 17:23:00 Test Item Value Reference Range Interpretation Comments WBC (test code = See_Comment [Automated 0488-2) message] The system which generated this result [...] RAC) Organization Information: Site ID: A Name: [email or web address] [facility] Lab Address: [address] [place], [place] [id number] Director: Meera Mejia Lab Interpretation Abnormal (test code = 90264-8) [facility] Hauteedimentation [id number] 17:23:00 Test Item Value Reference Range Interpretation Comments Sedimentation rate 33 mm/h See_Comment H [Automat ed (test code = 4537-7) message ] The system which generated this result transmitted reference range : < OR = 20. The reference range was not used to interpret this result as normal/abnormal . RAC (test code = Performing RAC) Organization Information: Site ID: [facility] Name: [facility] Lab Address: [address] [place] [address] Director: Meera Mejia Lab Interpretation Abnormal (test code = 51922-3) [facility] CenterUrinalysis, automated with [id number] 17:23:00 Test Item Value Reference Range Interpretation Comments Color, UA (test code DARK YELLOW YELLOW = 5778-6) Appearance (test CLEAR CLEAR code = 5767-9) Specific gravity, 1.001-1.035 urine (test code = 5811-5) pH, urine (test code 5.0-8.0 = 5803-2) Glucose, urine (test NEGATIVE NEGATIVE code = 37229-0) Bilirubin, UA (test NEGATIVE NEGATIVE Verified by code = 5770-3) repeat analys is. Ketones, UA (test TRACE NEGATIVE A code = 2514-8) Occult blood, urine NEGATIVE NEGATIVE (test code = 5794-3) Protein, UA (test TRACE NEGATIVE A code = 26597-5) Nitrite, UA (test NEGATIVE NEGATIVE code = [...] code = NONE SEEN See_Comment [Autom ated 55736-9) message] The system which generated this result transmitted reference range : < OR = 2 /HPF. The reference range was not used to interpr et this result as normal/abnormal . Squamous epithelial 0-5 See_Comment [Automa tisha cells, UA (test code message ] The = 73530-0) system which generated this result transmitted reference [...] RAC) Organization Information: Site ID: A Name: [facility] Lab Address: [address] [place] [phone] Director: Meera Mejia Lab Interpretation Abnormal (test code = 81787-1) [facility] protein/creatinine ratio, [id number] 17:23:00 Test Item Value Reference Range Interpretation [...] RAC) Organization Information: Site ID: RGA Name: [facility] n Lab Address: [address] [place] [phone] Director: Meera Mejia Lab Interpretation Abnormal (test code = 86103-0) [facility]-Stranded DNA (dsDNA) antibodies, [id number] 17:23:00 Test Item Value Reference Range Interpretation Comments dsDNA Ab, Crithidia NEGATIVE NEGATIVE (Quest) (test code = 6457-6) RAC (test code = RAC) Performing Organization Information: Site ID: EZ Name: [employer] [facility], Address: [address] [place], [place] [phone] Director: Katrin Curran MD,PhD,TYESHA [facility] CenterCreatine kinase, total (CPK)2020-10-15 09:53:00 Test Item Value Reference Range Interpretation Comments Creatine kinase (test 81 U/L 44-196 code = 2157-6) RAC (test code = RAC) Performing Organization Information: Site ID: DOT Name: [facility] Address: [address] [place] [phone] Director: Meera Mejia [facility] CenterComplement activity, [id number] 09:53:00 Test Item Value Reference Range Interpretation Comments Complement activity, >60 31-60 H total (test code = 4532-8) RAC (test code = RAC) Performing Organization Information: Site ID: EZ Name: [employer] [facility], Address: [address] [place] [address] Director: Katrin Curran MD,PhD,TYESHA Lab Interpretation (test Abnormal code = 53301-1) [facility] HospitalRheumatoid [id number] 09:53:00 Test Item Value Reference Range Interpretation Comments Rheumatoid factor <14 See_Comment [Automate d (test code = message] The 04811-1) system which generated this result transmit tisha reference range : <14 IU/mL. The reference range was not used to interpret this result as normal/abnormal . RAC (test code = Performing RAC) Organization Information: Site ID: DOT Name: [facility] Address: [address] [place] [phone] Director: Meera Mejia [facility] CenterCardiolipin [id number] 09:53:00 Test Item Value Reference Interpretation Comments Range Cardiolipin IgA <11 APL Value Inter pretation (test code = ----- -------- ------ 5076-5) < or = 11 Negat marck 12 - 20 Indetermin ate 21 - 80 Low to Med ium Positive >80 Hi gh Positive Cardiolipin IgG [...] 80 Low to Med ium Positive >80 H igh Positive The antiphospholipi d antibody syndro me (APS) is a clinical-pathol ogic correlation robbin t includes a clin ical event (e.g. thrombosis, pre gnancy loss, thrombocytopeni a) and persistent posi tive antiphospholipi d antibodies (IgM or IgG MARCELLO >40 MPL /GPL, IgM or IgG anti-o3MNAndmog odies or a lupus anticoagulant). International consensus guide lines for APS suggest waiting at leas t 12 weeks before retesting to co nfirm antibody persis tence. The Systemic Harley pus International Collaborating C lintabitha immunological classification criteria for [facility] lupus erythemat osus (SLE) include t esting for isotype IgA , which has yet t o be incorporated in to APS criteria. Low l evel antiphospholipi d antibodies may sometimes be de tected in the setting of infection, drug therapy or agin g. RAC (test code = Performing RAC) Organization Information: Site ID: IG Name: [facility] Address: [address] [place] [address] [place] [address] Director: Dr. Meera DrummondDeborah [facility] and [facility] anticoagulant [id number] 09:53:00 Test Item Value Reference Interpretation Comments Range Lupus anticoagulant SEE NOTE NOT DETECTED A Lupus (test code = Anticoagulant i s 77929-9) NOT DETECTED. T his interpretation is basedon the following test results: PTT lupus See_Comment For more anticoagulant (test informat ion on this code = 71544-3) test, go to:http://argentina linder .Omgili cs.c om/faq/JSA04z9( This link is being provided for informational/e [...] RAC) Organization Information: Site ID: EZ Name: [employer]/Anyi mccartney [facility], Address: [address] [place] [phone] Director: Katrin Curran MD,PhD,TYESHA [facility] CenterVitamin D 25 hydroxy [id number] 09:53:00 Test Item Value Reference Range Interpretation Comments Vitamin D, 25-hydroxy 25 ng/mL 30-100 L Vitami n D Status (test code = 1988-07) 25-OH V itamin D: Deficiency: <2 0 ng/mLInsufficie n cy: 20 - 29 ng/mLOptimal: > or = 30 ng/mL For 25-OH Vitamin D testing on patients on D2-supplementat i on and patients for whom quantitation of D2 and D3 fractions is required, the QuestAssureD(TM ) 25-OH VIT D, (D2,D3), LC/MS/MS is recommended: order code 9288 8 (patients >2yrs).See Note 1 Note 1 For additional information, please refer to http://tr rosales .[employer] technology/faq/FAQ19 9 (This link is being provided for informational/e d ucational purposes only.) RAC (test code = RAC) Performing Organization Information: Site ID: RGA Name: [employer]-[facility] Lab Address: [address] [place] [phone] Director: Meera Mejia Lab Interpretation Abnormal (test code = 65443-6) [facility] TownshipAldolase, [id number] 09:53:00 Test Item Value Reference Range Interpretation Comments Aldolase (test 3.9 U/L See_Comment [Automated code = 1761-6) message] The system which generated this result transmit tisha reference range : < OR = 8.1. The reference range was not used to interpret this result as normal/abnormal . RAC (test code = Performing RAC) Organization Information: Site ID: EZ Name: [employer]/[facility], Address: [address] [place] [address] Director: Katrin Curran MD,PhD,TYESHA [facility] CenterCyclic citrullinated peptide antibody, [id number] 09:53:00 Test Item Value Reference Range Interpretation Comments Cyclic citrullin <16 UNITS Reference peptide Ab (test RangeNegati ve: code = 14368-1) <20Weak Posi tive: 20-39Moderate Positive: 40-59Strong Positive: >59 RAC (test code = Performing RAC) Organization Information: Site ID: IG Name: [facility] Address: [address] [place] [phone] Director: Dr. Meera Jimenez HospitalSSA/SSB [id number] 09:53:00 Test Item Value Reference Range Interpretation Comments Sjogren's SS-A <1.0 NEG See_Comment [Automated antibody (test message] The code = 29253-2) system which generated this result transmit tisha reference range : <1.0 NEG AI. Th e reference range was not used to interpret this result as normal/abnormal . Sjogren's SS-B <1.0 NEG See_Comment [Automated antibody (test message] The code = 46874-7) system which generated this result transmit tisha reference range : <1.0 NEG AI. Th e reference range was not used to interpret this result as normal/abnormal . RAC (test code = Performing RAC) Organization Information: Site ID: IG Name: [facility]The [facility] Address: [address] [place] [phone] Director: Dr. Meera Jimenez [facility] CenterANTINUCLEAR ANTIBODIES TITER AND [id number] 09:53:00 Test Item Value Reference Interpretation Comments Range DAO titer (test 1:320 titer H Reference R olivia code = 5048-4) <1:40 Negativ e 1:40-1:80 Low Antibody Level >1:80 Elevated Antibo dy Level DAO pattern (test Nuclear, Speckled A Speck led pattern is code = 16837-9) associated w ith mixed connectivetissu e disease (MCTD), systemic lupus erythematosus(S LE), Sjogren's syndr ome, dermatomyositis , and systemic sclerosis/polym yosit is overlap. AC-2,4,5,29: Speckled International Consensus on AN A Patterns(https: //doi .org/10.1515/cc lm-20 18-0052) RAC (test code = Performing RAC) Organization Information: Site ID: IG Name: [facility] Lab Address: [address] [place] [phone] Director: Dr. Meera Mejia Lab Interpretation Abnormal (test code = 55282-1) [facility] 09:53:00 Test Item Value Reference Interpretation Comments Range dsDNA Ab, IU/mL H IU/mL Interpre tation < Immunoassay (test or = 4 Neg ative 5-9 code = 5130-0) Indeterminate > or = 10 Positive Mireles antibody <1.0 NEG See_Comment [Automated m essage] (test code = The system [employer] 40699-8) generated this result transmitted ref erence range: <1.0 NEG AI. The reference range was not used to interpr et this result as normal/abnormal . EXTERMINATION INSPECTOR-SM interp <1.0 NEG See_Comment [Automated me ssage] (test code = The system [employer] h 79887-1) generated this result transmitted ref erence range: <1.0 NEG AI. The reference range was not used to interpr et this result as normal/abnormal . Ribonucleic <1.0 NEG See_Comment [Automated mes nik] antibody (EXTERMINATION INSPECTOR) The system [facility] (test code = generated this result 26792-9) transmitted ref erence range: <1.0 NEG AI. The reference range was not used to interpr et this result as normal/abnormal . CHROMATIN <1.0 NEG See_Comment ANTIBODY PREVA LENCE IN (NUCLEOSOMAL) TIER 1 Double stranded ANTIBODY (test DNA (dsDNA) a ntibodies code = 45766-3) are present in57% to 62% systemic harley pus erythematosus ( SLE), 10% to43% polym yositis, 11% to 20% Sjog anibal's syndrome, 8% sy stemic sclerosis (scle roderma) and 0% to 8% mixedconnective tissue disease (MCTD). Chromatin antib ivelisse is present in >80% MCTD, 37% to 73% SLE, 14% systemic sclero sis, 12% Sjogren's syndr omeand 8% polymyositis . Ribonucleoprote in (EXTERMINATION INSPECTOR) antibodies are to EXTERMINATION INSPECTOR A and/or EXTERMINATION INSPECTOR 68kD proteins; antib odies to one or both are present in >80% MCTD, 2 2% to 48% SLE, 14% systemicscleros is, 12% Sjogren's and 8 % polymyositis. S m/EXTERMINATION INSPECTOR antibodies are directed to epitopes for med vishal complex of Sm a nd EXTERMINATION INSPECTOR; antibodies to t he Sm/RNPcomplex a re present in 54% to 94% MCTD, 30% SLE, 4%systemic scle rosis, and 9% Sjogren' s and polymyositis. S m antibody is pre sent in 20% to 30% SLE, 8% MCTD,10% polymy ositis, 0% systemic scl erosis and 4%Sjogren's syndrome. Doubl e stranded DNA, Chromatin, Ribonucleoprote in, Sm/EXTERMINATION INSPECTOR complex and Sm antibodies are present in <2% of annmarie l blood donors. The Dani mark does not rule o ut autoimmune diseasecharacte rized by other autoantib ivelisse specificities s uchas rheumatoid arth ritis, autoimmune hepa titis, primarybiliary cirrhosis, auto immune thyroiditis, Ewen'sdiseas e, pernicious anem ia, autoimmune neuropathies,va sculitis [...] RAC) Organization Information: Site ID: IG Name: [facility] COMPANY[facility] Address: [address] [place] [phone] Director: Dr. Meera Mejia Lab Interpretation Abnormal (test code = 33187-3) [facility] CenterRibonucleic antibody (EXTERMINATION INSPECTOR)2020-10-15 09:53:00 Test Item Value Reference Range Interpretation Comments Ribonucleic <1.0 NEG See_Comment [Automated antibody (EXTERMINATION INSPECTOR) message] The (test code = system which 07700-3) generated this result transmitted reference range : <1.0 NEG AI. Th e reference range was not used to interpret this result as normal/abnormal . RAC (test code = Performing RAC) Organization Information: Site ID: IG Name: [facility] Address: [address] [place] [phone] Director: Dr. Meera Mejia [facility] reflex to [id number] 09:53:00 Test Item Value Reference Range Interpretation Comments TSH reflex to See_Comment [Automated FT4 (test code message] The system = 3016-3) which generated this result transmitted reference range : 0.40 - 4.50 mIU /L. The reference r olivia was not used to interpret this result as normal/abnormal . RAC (test code Performing = RAC) Organization Information: Site ID: RGA Name: [facility] Address: [address] [place] [phone] Director: Meera Mejia [facility] IFA, W/REFL TO TITER/PATTERN/[id number] 09:53:00 Test Item Value Reference Interpretation Comments Range DAO Screen (test POSITIVE NEGATIVE A DAO IFA is a first code = 90998-1) line screen for detecting thepr esence of up to approx imately 150 autoantibod ies invarious autoi mmune diseases. A pos itive DAO IFA resulti s suggestive of autoimmune dise ase and reflexes to tit er, pattern and the 3 tiered Multiple x 11 AntibodyCascade . Testing in the [place] stops at the firstpositive r esult, and does not pr eclude additionalposit marck results. Furthe r laboratory test ing may beconsidered if clinically yamile cated. For additional information, pl ease refer tohttp://educat ion.[facility] stDiagnostics.c om/faq/ ZLU681(This diane k is being provided for informational/e ducatio nal purposes on ly.) RAC (test code = Performing RAC) Organization Information: Site ID: IG Name: [employer]-[facility] Lab Address: [address] [place], [place] [address], [place] [address] Director: Dr. Meera Mejia Lab Interpretation Abnormal (test code = 87614-4) [facility] HospitalANCA Screen with MPO and PR3, with Reflex to ANCA Titer 2020-10-15 09:53:00 Test Item Value Reference Interpretation Comments Range ANCA screen (test NEGATIVE NEGATIVE ANCA Scre en includes code = 15676-9) evaluation f or p-ANCA, c-ANCA andatypical p-A [...] = t Detected> or = 1.0 AI 44902-4) Antibody Detect ed Autoantibodies to myeloperoxidase (MPO) [...] to interpret this result as normal/abnormal . NY-3 (protease) <1.0 See_Commen <1.0 AI No Antibody (test code = t Detected> or = 1.0 AI 79025-8) Antibody Detect ed Autoantibodies to proteinase-3 (P R-3) are accepted aschar acteristic for granulomatosis with polyangiitis (G PA,Sandor's), and are detecta ble in 95% of the histologica llyproven cases. The cyto plasmic IFA pattern, (c-ANC A), isbased largely on auto antibody to NY-3 which serv es as theprimary anti gen. These autoantibodies are present in activedisease. [Automated message] The sy stem which generated this result transmitted ref erence range: <1.0 AI. The reference range was not u sed to interpret this result as normal/abnormal . RAC (test code = Performing RAC) Organization Information: Site ID: EZ Name: [employer]enny [employer]ong [facility], Address: [address] [place] [address] Director: Katrin Curran MD,PhD,TYESHA [facility] and Sm/EXTERMINATION INSPECTOR [id number] 09:53:00 Test Item Value Reference Range Interpretation Comments Mireles antibody <1.0 NEG See_Comment [Automated (test code = message] The 04914-0) system which generated this result transmit tisha reference range : <1.0 NEG AI. Th e reference range was not used to interpret this result as normal/abnormal . EXTERMINATION INSPECTOR-SM interp <1.0 NEG See_Comment [Automated (test code = message] The 18803-1) system which generated this result transmit tisha reference range : <1.0 NEG AI. Th e reference range was not used to interpret this result as normal/abnormal . RAC (test code = Performing RAC) Organization Information: Site ID: IG Name: [facility] Address: [address] [place] [address] Director: Dr. Meera Mejia [facility] CenterBeta-2 glycoprotein 1 antibodies (IgG, IgA, IgM)2020-10-15 09:53:00 Test Item Value Reference Interpretation Comments Range Beta-2 <9 See_Comment [Automated mes nik] The glycoprotein 1 system which generated this antibody, IgG result transmi tted reference (test code = range: < OR = 2 0 SGU. The 69949-2) reference range was not used to interpret th is result as normal/abnormal . Beta-2 <9 See_Comment [Automated [employer]] The glycoprotein 1 system which generated this antibody, IgM result transmi tted reference (test code = range: < OR = 2 0 SMU. The 34966-1) reference range was not used to interpret th is result as normal/abnormal . Beta-2 <9 See_Comment The antiphospho lipid antibody glycoprotein 1 syndrome (APS ) gucci antibody, IgA clinical-patho logic (test code = correlation robbin t includesa 44830-7) clinical event (e.g. thrombosis, pre gnancyloss, thrombocytopeni a) and persistent positiveantipho spholipid antibodies (IgM or IgG MARCELLO>40 MPL/GPL,IgM or IgG anti-b2GPI antibodies ora lupus anticoagulant). International consensusguidel gary for APS suggest waiting at least 12weeks before retesting to confirm antibod ypersistence. The Systemic Harley pus [facility] llaborating Clinics immunologicalcl assification criteria for [facility] lupuserythemato alfonso (SLE) include testing [...] RAC) Organization Information: Site ID: EZ Name: [employer]edy denis [facility], Address: [address] [place] [address] Director: Katrin Curran MD,PhD,TYESHA [facility] HospitalDirect antiglobulin test ([place])2020-10-15 09:53:00 Test Item Value Reference Range Interpretation Comments Direct antiglobulin NEGATIVE NEGATIVE test ([place]) (test code = 1007-4) RAC (test code = RAC) Performing Organization Information: Site ID: IG Name: [employer]-[facility] Lab Address: [address] [place] [phone] Director: Dr. Meera Mejai [facility] CenterDouble-Stranded DNA (dsDNA) Antibodies, [id number] 09:53:00 Test Item Value Reference Interpretation Comments Range dsDNA Ab, IU/mL H IU/mL Immunoassay (test Interpreta tion < or code = 5130-0) = 4 Negative 5-9 Indeterminate > or = 10 Positive RAC (test code = Performing RAC) Organization Information: Site ID: IG Name: [employer]-Samara mccartney Lab Address: [address] [place] [phone] Director: Dr. Meera Mejia Lab Interpretation Abnormal (test code = 12744-7) [facility] HospitalCreatine kinase, total (CPK)2020-10-15 09:53:00 Test Item Value Reference Range Interpretation Comments Creatine kinase (test 81 U/L 44-196 code = 2157-6) RAC (test code = RAC) Performing Organization Information: Site ID: RGA Name: [facility] Address: [address] [place] [address] Director: Meera Mejia [facility] CenterComplement activity, [id number] 09:53:00 Test Item Value Reference Range Interpretation Comments Complement activity, >60 31-60 H total (test code = 4532-8) RAC (test code = RAC) Performing Organization Information: Site ID: EZ Name: [employer]/[facility], Address: [address] [place] [address] Director: Katrin Curran MD,PhD,TYESHA Lab Interpretation (test Abnormal code = 53027-9) [facility]heumatoid [id number] 09:53:00 Test Item Value Reference Range Interpretation Comments Rheumatoid factor <14 See_Comment [Automate d (test code = message] The 22969-4) system which generated this result transmit tisha reference range : <14 IU/mL. The reference range was not used to interpret this result as normal/abnormal . RAC (test code = Performing RAC) Organization Information: Site ID: RGA Name: [facility] Address: [address] [place] [address] Director: Meera Jimenez HospitalCardiolipin [id number] 09:53:00 Test Item Value Reference Interpretation Comments Range Cardiolipin IgA <11 APL Value Inter pretation (test code = ----- --------- ----- 5076-5) < or = 11 Negat marck 12 - 20 Indetermin ate 21 - 80 Low to Med ium Positive >80 Hi gh Positive Cardiolipin IgG <14 GPL Value Inter pretation (test code = ----- --------- ----- 3181-5) < or = 14 Negat marck 15 - 20 Indetermin ate 21 - 80 Low to Med ium Positive >80 Hi gh Positive Cardiolipin IgM <12 MPL Value (test code = Interpretation ----- 3182-3) < or = 12 Negative 13 - 20 Indeterminate 2 1 - 80 Low to Medium Positive >80 Hi gh Positive The antiphospholipi d antibody syndro me (APS) is a clinical-pathol ogic correlation robbin t includes a clin ical event (e.g. thrombosis, pre gnancy loss, thrombocytopeni a) and persistent posi tive antiphospholipi d antibodies (IgM or IgG MARCELLO >40 MPL /GPL, IgM or IgG anti-a2EAGzqmkn odies or a lupus anticoagulant). International consensus guide lines for APS suggest waiting at leas t 12 weeks before retesting to co nfirm antibody persis tence. The Systemic Harley pus International Collaborating C lintabitha immunological classification criteria for [facility] lupus erythemat osus (SLE) include t esting for isotype IgA , which has yet t o be incorporated in to APS criteria. Low l evel antiphospholipi d antibodies may sometimes be de tected in the setting of infection, drug therapy or froylanin shant CHOWDHURY (test code = Performing RAC) Organization Information: Site ID: IG Name: [facility] Address: [address] [place] [address] Director: Dr. Meera Jimenez [facility] CenterLupus anticoagulant [id number] 09:53:00 Test Item Value Reference Interpretation Comments Range Lupus anticoagulant SEE NOTE NOT DETECTED A Lupus (test code = Anticoagulant i s 84204-7) NOT DETECTED. T his interpretation is basedon the following test results: PTT lupus See_Comment For more anticoagulant (test informat ion on this code = 49981-2) test, go to:http://argentina linder .9Lenses.c om/faq/APQ24h6( This link is being provided for informational/e [...] RAC) Organization Information: Site ID: EZ Name: [employer]/Anyi mccartney [facility], Address: [address] [place] [address] Director: Katrin Curran MD,PhD,TYESHA [facility] CenterVitamin D 25 hydroxy [id number] 09:53:00 Test Item Value Reference Range Interpretation Comments Vitamin D, 25-hydroxy 25 ng/mL 30-100 L Vitami n D Status (test code = 1989-) 25-OH V itamin D: Deficiency: <20 ng/mLInsufficie [...] additional information, please refer to http://tr rosales .[employer] technology/faq/FAQ19 9 (This link is being provided for informational/e d ucational purposes only.) RAC (test code = RAC) Performing Organization Information: Site ID: RGA Name: [employer]-Madhav n Lab Address: [address] [place] [address] Director: Meera Mejia Lab Interpretation Abnormal (test code = 61998-3) [facility] CenterAldolase, [id number] 09:53:00 Test Item Value Reference Range Interpretation Comments Aldolase (test 3.9 U/L See_Comment [Automated code = 1761-6) message] The system which generated this result transmit tisha reference range : < OR = 8.1. The reference range was not used to interpret this result as normal/abnormal . RAC (test code = Performing RAC) Organization Information: Site ID: EZ Name: [employer]/[facility], Address: [address] [place] [address] Director: Katrin Curran MD,PhD,TYESHA [facility] CenterCyclic citrullinated peptide antibody, [id number] 09:53:00 Test Item Value Reference Range Interpretation Comments Cyclic citrullin <16 UNITS Reference peptide Ab (test RangeNegati ve: code = 06141-5) <20Weak Posi tive: 20-39Moderate Positive: 40-59Strong Positive: >59 RAC (test code = Performing RAC) Organization Information: Site ID: IG Name: [facility] Address: [address] [place] [address] Director: Dr. Meera Mejia [facility] HospitalSSA/SSB [id number] 09:53:00 Test Item Value Reference Range Interpretation Comments Sjogren's SS-A <1.0 NEG See_Comment [Automated antibody (test message] The code = 92177-7) system which generated this result transmit tisha reference range : <1.0 NEG AI. Th e reference range was not used to interpret this result as normal/abnormal . Sjogren's SS-B <1.0 NEG See_Comment [Automated antibody (test message] The code = 15685-7) system which generated this result transmit tisha reference range : <1.0 NEG AI. Th e reference range was not used to interpret this result as normal/abnormal . RAC (test code = Performing RAC) Organization Information: Site ID: IG Name: [facility] Address: [address] [place] [address], [place] [address] Director: Dr. Meera Mejia [facility] CenterANTINUCLEAR ANTIBODIES TITER AND [id number] 09:53:00 Test Item Value Reference Interpretation Comments Range DAO titer (test 1:320 titer H Reference Range code = 5048-4) <1:40 Negativ e 1:40-1:80 Low Antibody Level >1:80 Elevated Antibo dy Level DAO pattern (test Nuclear, Speckled A Speck led pattern is code = 21594-9) associated w ith mixed connectivetissu e disease (MCTD), systemic lupus erythematosus(S LE), Sjogren's syndr ome, dermatomyositis , and systemic sclerosis/polym yosit is overlap. AC-2,4,5,29: Speckled International Consensus on AN A Patterns(https: //doi .org/10.1515/cc lm-20 18-0052) RAC (test code = Performing RAC) Organization Information: Site ID: IG Name: [employer]-Samara mccartney Lab Address: [address] [place] [address] Director: Dr. Meera Mejia Lab Interpretation Abnormal (test code = 17074-5) [facility] 09:53:00 Test Item Value Reference Interpretation Comments Range dsDNA Ab, IU/mL H IU/mL Interpre tation < Immunoassay (test or = 4 Neg ative 5-9 code = 5130-0) Indeterminate > or = 10 Positive Mireles antibody <1.0 NEG See_Comment [Automated m essage] (test code = The system [facility] 37950-5) generated this result transmitted ref erence range: <1.0 NEG AI. The reference range was not used to interpr et this result as normal/abnormal . EXTERMINATION INSPECTOR-SM interp <1.0 NEG See_Comment [Automated me ssage] (test code = The system [facility] 79613-6) generated this result transmitted ref erence range: <1.0 NEG AI. The reference range was not used to interpr et this result as normal/abnormal . Ribonucleic <1.0 NEG See_Comment [Automated mes nik] antibody (EXTERMINATION INSPECTOR) The system [facility] (test code = generated this result 32295-5) transmitted ref erence range: <1.0 NEG AI. The reference range was not used to interpr et this result as normal/abnormal . CHROMATIN <1.0 NEG See_Comment ANTIBODY PREVA LENCE IN (NUCLEOSOMAL) TIER 1 Double stranded ANTIBODY (test DNA (dsDNA) a ntibodies code = 69722-7) are present in57% to 62% systemic harley pus erythematosus ( SLE), 10% to43% polym yositis, 11% to 20% Sjog anibal's syndrome, 8% sy stemic sclerosis (scle roderma) and 0% to 8% mixedconnective tissue disease (MCTD). Chromatin antib ivelisse is present in >80% MCTD, 37% to 73% SLE, 14% systemic sclero sis, 12% Sjogren's syndr omeand 8% polymyositis . Ribonucleoprote in (EXTERMINATION INSPECTOR) antibodies are to EXTERMINATION INSPECTOR A and/or EXTERMINATION INSPECTOR 68kD proteins; antib odies to one or both are present in >80% MCTD, 2 2% to 48% SLE, 14% systemicscleros is, 12% Sjogren's and 8 % polymyositis. S m/EXTERMINATION INSPECTOR antibodies are directed to epitopes for med vishal complex of Sm a nd EXTERMINATION INSPECTOR; antibodies to t he Sm/RNPcomplex a re present in 54% to 94% MCTD, 30% SLE, 4%systemic scle rosis, and 9% Sjogren' s and polymyositis. S m antibody is pre sent in 20% to 30% SLE, 8% MCTD,10% polymy ositis, 0% systemic scl erosis and 4%Sjogren's syndrome. Doubl e stranded DNA, Chromatin, Ribonucleoprote in, Sm/EXTERMINATION INSPECTOR complex and Sm antibodies are present in [...] RAC) Organization Information: Site ID: IG Name: [facility] Address: [address] [place] [phone] Director: Dr. Meera Mejia Lab Interpretation Abnormal (test code = 95914-0) [facility] CenterRibonucleic antibody (EXTERMINATION INSPECTOR)2020-10-15 09:53:00 Test Item Value Reference Range Interpretation Comments Ribonucleic <1.0 NEG See_Comment [Automated antibody (EXTERMINATION INSPECTOR) message] The (test code = system which 18067-7) generated this result transmitted reference range : <1.0 NEG AI. Th e reference range was not used to interpret this result as normal/abnormal . RAC (test code = Performing RAC) Organization Information: Site ID: IG Name: [facility] Address: [address] [place] [address] Director: Dr. Meera Mejia [facility] reflex to [id number] 09:53:00 Test Item Value Reference Range Interpretation Comments TSH reflex to See_Comment [Automated FT4 (test code message] The system = 3016-3) which generated this result transmitted reference range : 0.40 - 4.50 mIU /L. The reference r olivia was not used to interpret this result as normal/abnormal . RAC (test code Performing = RAC) Organization Information: Site ID: RGA Name: [facility] Address: [address] [place] [address] Director: Meera Mejia [facility] CenterANA IFA, W/REFL TO TITER/PATTERN/[id number] 09:53:00 Test Item Value Reference Interpretation Comments Range DAO Screen (test POSITIVE NEGATIVE A DAO IFA is a first code = 33950-6) line screen for detecting thepr esence of up to approx imately 150 autoantibod ies invarious autoi mmune diseases. A pos itive DAO IFA resulti s suggestive of autoimmune dise ase and reflexes to tit er, pattern and the 3 tiered Multiple x 11 AntibodyCascade . Testing in the [place] stops at the firstpositive r esult, and does not pr eclude additionalposit marck results. Furthe r laboratory test ing may beconsidered if clinically yamile cated. For additional information, pl ease refer tohttp://educat Nina stDiagnostics.c om/faq/ PWA828(This diane k is being provided for informational/e ducatio nal purposes on ly.) RAC (test code = Performing RAC) Organization Information: Site ID: IG Name: [employer]-[facility] Lab Address: [address] [place] [address] [place] [address] Director: Dr. Meera Mejia Lab Interpretation Abnormal (test code = 17390-0) [facility] HospitalANCA Screen with MPO and PR3, with Reflex to ANCA Titer 2020-10-15 09:53:00 Test Item Value Reference Interpretation Comments Range ANCA screen (test NEGATIVE NEGATIVE ANCA Scre en includes code = 06028-3) evaluation f or p-ANCA, c-ANCA andatypical p-A [...] = t Detected> or = 1.0 AI 24344-7) Antibody Detect ed Autoantibodies to myeloperoxidase (MPO) [...] to interpret this result as normal/abnormal . NY-3 (protease) <1.0 See_Commen <1.0 AI No Antibody (test code = t Detected> or = 1.0 AI 16019-3) Antibody Detect ed Autoantibodies to proteinase-3 (P R-3) are accepted aschar acteristic for granulomatosis with polyangiitis (G PA,Sandor's), and are detecta ble in 95% of the histologica llyproven cases. The cyto plasmic IFA pattern, (c-ANC A), isbased largely on auto antibody to NY-3 which serv es as theprimary anti gen. These autoantibodies are present in activedisease. [Automated message] The sy stem which generated this result transmitted ref erence range: <1.0 AI. The reference range was not u sed to interpret this result as normal/abnormal . RAC (test code = Performing RAC) Organization Information: Site ID: EZ Name: [employer]/Jenny wong [facility], Address: [address] [place] [address] Director: Katrin Curran MD,PhD,TYESHA [facility] and Sm/EXTERMINATION INSPECTOR [id number] 09:53:00 Test Item Value Reference Range Interpretation Comments Mireles antibody <1.0 NEG See_Comment [Automated (test code = message] The 21637-8) system which generated this result transmit tisha reference range : <1.0 NEG AI. Th e reference range was not used to interpret this result as normal/abnormal . EXTERMINATION INSPECTOR-SM interp <1.0 NEG See_Comment [Automated (test code = message] The 08996-9) system which generated this result transmit tisha reference range : <1.0 NEG AI. Th e reference range was not used to interpret this result as normal/abnormal . RAC (test code = Performing RAC) Organization Information: Site ID: IG Name: [facility] Address: [address] [place] [address] Director: Dr. Meera L [facility] HospitalBeta-2 glycoprotein 1 antibodies (IgG, IgA, IgM)2020-10-15 09:53:00 Test Item Value Reference Interpretation Comments Range Beta-2 <9 See_Comment [Automated SciGit] The glycoprotein 1 system which generated this antibody, IgG result transmi tted reference (test code = range: < OR = 2 0 SGU. The 25468-2) reference range was not used to interpret th is result as normal/abnormal . Beta-2 <9 See_Comment [Automated SciGit] The glycoprotein 1 system which generated this antibody, IgM result transmi tted reference (test code = range: < OR = 2 0 SMU. The 61545-2) reference range was not used to interpret th is result as normal/abnormal . Beta-2 <9 See_Comment The antiphospho lipid antibody glycoprotein 1 syndrome (APS ) gucci antibody, IgA clinical-patho logic (test code = correlation robbin t includesa 54597-5) clinical event (e.g. thrombosis, pre gnancyloss, thrombocytopeni a) and persistent positiveantipho spholipid antibodies (IgM or IgG MARCELLO>40 MPL/GPL,IgM or IgG anti-b2GPI antibodies ora lupus anticoagulant). International consensusguidel gary for APS suggest waiting at least 12weeks before retesting to confirm antibod ypersistence. The Systemic [facility] llaborating Clinics immunologicalcl assification criteria for [facility] lupuserythemato alfonso (SLE) include testing [...] RAC) Organization Information: Site ID: EZ Name: [employer]/Speedy denis [facility], Address: [address] [place] [address] Director: Katrin Curran MD,PhD,TYESHA [facility] CenterDirect antiglobulin test (DENTON)2020-10-15 09:53:00 Test Item Value Reference Range Interpretation Comments Direct antiglobulin NEGATIVE NEGATIVE test (DENTON) (test code = 1007-4) RAC (test code = RAC) Performing Organization Information: Site ID: IG Name: [facility] Address: [address] [place] [address] Director: Dr. Meera Mejia [facility] CenterDouble-Stranded DNA (dsDNA) Antibodies, [id number] 09:53:00 Test Item Value Reference Interpretation Comments Range dsDNA Ab, IU/mL H IU/mL Immunoassay (test Interpreta tion < or code = 5130-0) = 4 Negative 5-9 Indeterminate > or = 10 Positive RAC (test code = Performing RAC) Organization Information: Site ID: IG Name: P. LEMMENS COMPANYEnio mccartney Lab Address: [address] [place] [address] Director: Dr. Meera Mejia [facility] Interpretation Abnormal (test code = 48395-1) [facility] Cen[id number] 09:53:00InterpretationComment: dsDNA antibody is frequently positive in patients with systemic lupus erythematosus; however, it may be positive in a lesser percentage of patients with rheumatoidarthritis and other connective tissue disease. Apositive result at this stage of testing stops further testing, and does not preclude additional positiveantibodies. Clinical correlation is required to assess the need for testing additional analytes. [facility] Organization Information: SiteID: IG Name: [facility] Address: [address] [place] [address] Director: Dr. Me[facility]jiaHe[facility] Center [id number] 09:53:00InterpretationComment: dsDNA antibody is frequently positive in patients with systemic lupus erythematosus; however, it may be positive in a lesser percentage of patients with rheumatoidarthritis and other connective tissue disease. Apositive result at this stage of testing stops further testing, and does not preclude additional positiveantibodies. Clinical correlation is required to assess the need for testing additional analytes. [facility] Effortless EnergyENGLEWOOD HOSPITAL AND MEDICAL [facility]ENTER IINorthwest Medical Centerformin Organization Information: SiteID: IG Name: [facility] Address: [address] [place] [address] Director: Dr. Meera L [facility], total and free 2020-10-05 23:08:00 Test Item Value Reference Interpretation Comments Range PSA (test code = 6.0 ng/mL See_Comment H [Automated message] 2857-1) The system [employer] generated this result transmitted ref erence range: < OR = 4 .0. The reference range was not used to int erpret this result as normal/abnormal . PSA, free (test 0.7 ng/mL code = 48778-7) PSA, free percent See_Comment L PSA(ng/mL ) Free (test code = PSA(%) Estimat ed(x) 63396-6) Probability of Cancer(as%)0-2. 5 (*) Approx. 12.6-4. 0(1) 0-27(2) 24(3)4. 1-10(4) 0-10 56 11-15 2 8 16-20 20 21-25 16 >or =26 8>10(+) N/A >50 References:(1)Lucie hargrove et al.:Urology 60: 469-474 (2001) (2)Lilia et al.:J.Urol 168: 922-925 (2001) Free PSA(%) Sensitiv ity(%) Specificity(%) < or = 25 85 19 < or = 30 93 9 (3)Lilia e t al.:KEM 277: 5198-2356 (1996 ) (4)Catalona et al.:KEM 279: 4571-9826 (1997 ) (x)These estima bonifacio vary with [...] mind. P SA was performed using the IIZI groupImmunoas say method. Values obtained from differentassay methods cannot be used interchangeably . PSAlevels, rega rdless of value, shoul d not be interpreteda s absolute eviden ce of the presence or absence ofdisea se. [Automated mess age] The system [employer] generated this result transmitted ref erence range: >25 % (c alc). The reference r olivia was not used to interpret this result as normal/abnor mal. RAC (test code = Performing RAC) Organization Information: Site ID: IG Name: [employer]-[facility] Lab Address: [address] [place] [address] Director: Dr. Meera Mejia Lab Interpretation Abnormal (test code = 08832-1) [facility] HospitalPSA, total and [id number] 23:08:00 Test Item Value Reference Interpretation Comments Range PSA (test code = 6.0 ng/mL See_Comment H [Automated message] 8917-1) The system [employer] generated this result transmitted ref erence range: < OR = 4 .0. The reference range was not used to int erpret this result as normal/abnormal . PSA, free (test 0.7 ng/mL code = 62931-9) PSA, free percent See_Comment L PSA(ng/mL ) Free (test code = PSA(%) Estimate d(x) 99506-9) Probability of Cancer(as%)0-2. 5 (*) Approx. 12.6-4. 0(1) 0-27(2) 24(3)4.1-10(4) 0-10 56 11-15 28 16-20 20 21-25 16 >or =2 6 8>10(+) N/A >50 References:(1)Lucie hargrove et al.:Urology 60: 469-474 (2002) (2)Mindyona et al.:J.Urol 168: 922-925 (2001) Free PSA(%) Sensitiv ity(%) Specificity(%) < or = 25 85 19 < or = 30 93 9 (3)Mindyona et al.:KEM 277: 3210-9713 (1996 ) (4)Catalona et al.:KEM 279: 1354-8369 (1997 ) (x)These estima bonifacio vary with [...] ofdisea se. [Automated mess age] The system [employer] h generated this result transmitted ref erence range: >25 % (c alc). The reference r olivia was not used to interpret this result as normal/abnor mal. RAC (test code = Performing RAC) Organization Information: Site ID: IG Name: [employer]-[facility] Lab Address: [address] [place] [address] Director: Dr. Meera Mejia Lab Interpretation Abnormal (test code = 57215-3) [facility] CenterVitamin B12 [id number] 23:32:00 Test Item Value Reference Interpretation Comments Range Vitamin B12 280 pg/mL 200-1100 Please Note: A lthough the (test code = reference range for 2132-01) zmbauavB14 is 2 00-1100 pg/mL, it has b een reported that between5 a nd 10% of patients with v alues between 200 and 400pg/m L may experience neur opsychiatric and hematologic abnormalities due to occult B 12 deficiency; les s than 1%of patients with v alues above 400 pg/mL will have symptoms. RAC (test Performing code = RAC) Organization Information: Site ID: RGA Name: [facility] on Lab Address: [address] [place] [address] Director: Meera Mejia [facility] CenterVitamin B1 [id number] 23:32:00 Test Item Value Reference Range Interpretation Comments Vitamin B1 14 nmol/L 8-30 Vitamin (test code = supplementation 00096-8) within 24 hours prior to blood draw m ay affect the accu racy of results. Th is test was develo ped and its analyti eli performance characteristics have been determined by [employer]. It has not been cl eared or approved by theFDA. This as say has been valida tisha pursuant to the CLIA regulations and is used for clinic al purposes. RAC (test code Performing = RAC) Organization Information: Site ID: [facility] Name: [facility] Address: [address] [place] [address] Director: Rachid Ruiz M.D. [facility] CenterVitamin E level, plasma or [id number] 23:32:00 Test Item Value Reference Range Interpretation [...] perf ormance characteristics have been determined by [employer]. It has not been cl eared or approved by theFDA. This assay has been validated pursu ant to the CLIA regula tions and is used for clinical purpos es. Gamma-tocoph See_Comment This test was lorenzo mg/L developed and i ts (test code = analytical perf ormance 22201-0) characteristics have been determined by [employer] . It has not been cl eared or approved by theFDA. This assay has been validated pursu ant to the CLIA regula tions and is used for clinical purpos es. [Automated mess age] The system [employer] generated this result transmitted ref erence range: <4.4 mg/ L . The reference range was not used to int erpret this result as normal/abnormal . RAC (test Performing code = RAC) Organization Information: Site ID: [facility] Name: [facility] Address: [address] [place] [address] Director: Rachid Ruiz M.D. [facility] HospitalMethylmalonic acid, [id number] 23:32:00 Test Item Value Reference Interpretation Comments Range Methylmalonic 376 nmol/L 87-318 H This test was developed and acid (test code = its analyt ical 10959-1) performancechar acteristics have been deter mined by [employer] [facility]. It has not beencleared or approved by FDA. This assay has been validatedpursua nt to the CLIA regulation s and is used for clinicalpur poses. RAC (test code = Performing RAC) Organization Information: Site ID: EZ Name: [employer]/[facility], Address: [address] [place] [address] Director: Katrin Curran MD,PhD,TYESHA Lab Abnormal Interpretation (test code = 79291-2) [facility] S[facility] W IFA W REFLEX TO [id number] 23:32:00 Test Item Value Reference Interpretation Comments Range DAO Screen (test POSITIVE NEGATIVE A DAO IFA is a first code = 18826-2) line screen for detecting thepresence of up to approximately 1 50 autoantibodies invarious autoi mmune diseases. A pos itive ADO IFA resulti s suggestive of autoimmune dise ase and reflexes to titer and pattern. Fu rther laboratory test ing may beconsidere d if clinically indicated. For additional information, pl ease refer tohttp://educat ion.[employer] .picsell/ faq/FQG301(This link is being provid ed for informational/e ducat ional purposes only.) DAO titer (test 1:320 titer H Reference R olivia code = 5048-4) <1:40 Negativ e 1:40-1:80 Low Antibody Level >1:80 Elevated Antibo dy Level DAO pattern (test Nuclear, Speckled A Speck led pattern is code = 31086-1) associated w ith mixed connectivetissu e disease (MCTD), systemic lupus erythematosus(S LE), Sjogren's syndr ome, dermatomyositis , and systemic sclerosis/polym yosit is overlap. AC-2,4,5,29: Speckled International Consensus on AN A Patterns(https: //doi .org/10.1515/cc lm-20 18-0052) RAC (test code = Performing RAC) Organization Information: Site ID: IG Name: [facility] [employer] Address: [address] [place] [address] Director: Dr. Meera Mejia Lab Interpretation Abnormal (test code = 07350-7) [facility] CenterVitamin B12 [id number] 23:32:00 Test Item Value Reference Interpretation Comments Range Vitamin B12 280 pg/mL 200-1100 Please Note: A lthough the (test code = reference range for 2132-01) [id number] is 2 00-1100 pg/mL, it has b een reported that between5 a nd 10% of patients with v alues between 200 and 400pg/m L may experience neur opsychiatric and hematologic abnormalities due to occult B 12 deficiency; les s than 1%of patients with v alues above 400 pg/mL will have symptoms. RAC (test Performing code = RAC) Organization Information: Site ID: RGA Name: [facility] Address: [address] [place] [address] Director: Meera Mejia [facility] CenterVitamin B1 [id number] 23:32:00 Test Item Value Reference Range Interpretation Comments Vitamin B1 14 nmol/L 8-30 Vitamin (test code = supplementation 16343-4) within 24 hours prior to blood draw m ay affect the accu racy of results. Thi s test was developed a nd its analytical performance characteristics have been determined by [employer]. It has not been cl eared or approved by theA. This as say has been valida tisha pursuant to the CLIA regulations and is used for clinic al purposes. RAC (test code Performing = RAC) Organization Information: Site ID: SLI Name: [employer]-[facility] Stein Address: [address] [place] [address] Director: Rachid Ruiz M.D. [facility] CenterVitamin E level, plasma or [id number] 23:32:00 Test Item Value Reference Range Interpretation [...] perf ormance characteristics have been determined by [employer] . It has not been cl eared or approved by theFDA. This assay has been validated pursu ant to the CLIA regula tions and is used for clinical purpos es. Gamma-tocoph See_Comment This test was lorenzo mg/L developed and i ts (test code = analytical perf ormance 20289-5) characteristics have been determined by [employer] . It has not been cl eared or approved by theFDA. This assay has been validated pursu ant to the CLIA regula tions and is used for clinical purpos es. [Automated mess age] The system [employer] generated this result transmitted ref erence range: <4.4 mg/ L . The reference range was not used to int erpret this result as normal/abnormal . RAC (test Performing code = RAC) Organization Information: Site ID: SLI Name: [facility] Address: [address] [place] [address] Director: Rachid Ruiz M.D. [facility] CenterMethylmalonic acid, [id number] 23:32:00 Test Item Value Reference Interpretation Comments Range Methylmalonic 376 nmol/L 87-318 H This test was developed and acid (test code = its analyt ical 98454-0) performancechar acteristics have been deter mined by [employer] [facility]. It has not beencleared or approved by FDA. This assay has been validatedpursua nt to the CLIA regulation s and is used for clinicalpur poses. RAC (test code = Performing RAC) Organization Information: Site ID: EZ Name: [employer]/[facility], Address: [address] [place] [address] Director: Katrin Curran MD,PhD,TYESHA Lab Abnormal Interpretation (test code = 17752-8) [facility] CenterANA SCREEN W IFA W REFLEX TO [id number] 23:32:00 Test Item Value Reference Interpretation Comments Range DAO Screen (test POSITIVE NEGATIVE A DAO IFA is a first code = 36607-7) line screen for detecting thepresence of up to approximately 1 50 autoantibodies invarious autoi mmune diseases. A pos itive DAO IFA resulti s suggestive of autoimmune dise ase and reflexes to titer and pattern. Fu rther laboratory test ing may beconsidere d if clinically indicated. For additional information, pl ease refer tohttp://educat ionAccess[employer]/ faq/ZWC729(This link is being provid ed for informational/e ducat ional purposes only.) DAO titer (test 1:320 titer H Reference R olivia code = 5048-4) <1:40 Negativ e 1:40-1:80 Low Antibody Level >1:80 Elevated Antibo dy Level DAO pattern (test Nuclear, Speckled A Speck led pattern is code = 90268-7) associated w ith mixed connectivetissu e disease (MCTD), systemic lupus erythematosus(S LE), Sjogren's syndr ome, dermatomyositis , and systemic sclerosis/polym yosit is overlap. AC-2,4,5,29: Speckled International Consensus on AN A Patterns(https: //doi .org/10.1515/cc lm-20 18-0052) RAC (test code = Performing RAC) Organization Information: Site ID: IG Name: [facility] Address: [address] [place] [address] Director: Dr. Meera Mejia Lab Interpretation Abnormal (test code = 92088-5) [facility] CenterImmunofixawilmington hospital, [id number] 23:32:00InterpretationComment: A faint IgG (kappa) monoclonal immunoglobulin is detected. IgM lambda monoclonal band present. OrbFlexATRIUM HEALTH STANLYJANEL IIPerformin Organization Information: Site ID: IG Name: [facility] Address: [address] [place] [address] Director: Dr. Meera MejiaHe[facility] Immunofixation, [id number] 23:32:00InterpretationComment: A faint IgG (kappa) monoclonal immunoglobulin is detected. IgM lambda monoclonal band present. [employer]JANEL IIPerformin Organization Information: Site ID: IG Name: [facility] Address: [address] [place], [place] [address] [address] Director: Dr[address] Meera [facility]iaD[facility] LUMBAR WO/W 2020-03-11 14:53:45 [facility] : 1940 Sex: MCLINICAL INDICAT ION: C61 Malignant neoplasm of prostateMODALITY: Cyprotex 3T MRI TECHNIQUE: Multiplanar multi sequence MRI [...] the bone scan.3. No suggestion of metastatic diseas e.4. L5-S1, 5 mm right central disc protrusion contacting the S1 nerve root in the right lateral recess, moderate bilateral facet arthropathy and ligamentum flavum thickening . Central canal is patent.Mild bilateral lateral recess and foraminal narrowing. 5. At L4-L5, 4 mm broad-based disc osteophytecomplex., bilateral facet arthropathy and ligamentum flavum redundancy. Mild central canal narrowingof 9 mm. Moderate bilateral lateral recess narrowing [...] root compression.FINDINGS:COMPARISON: Bone scan demonstrating abnormal uptake at L3 [...] There is mild central canal narrowing of 9mm. There is moderate bilateral lateral recess narrowing encroaching on the descending L5 nerve roots. There is moderate bilateral foraminal narrowing without nerve root compression.L3-L4: There is a 3mm broad-based disc osteophyte complex that is concave centrally. There is moderate facet arthropathy and moderate ligamentum flavum thickening. There is mild central canal narrowing of 8.8 mm with epidural fat posteriorly. There is moderate bilateral lateral recess narrowing crowding the descending L4 nerve roots. There is mild bilateral foraminal narrowing without nerve root compression.L2-L3: There is a 3 mm broad- based disc osteophyte complex. There is mild bilateral [...] in Respiratory specimen by SHANE with probe [id number] 14:35:05 Test Item Value Reference Range Interpretation Comments SARS coronavirus 2 RNA Not detected Not-Detected [Presence] in Respiratory specimen by SHANE with probe detection (test code = 51297-3) [facility] [employer] WESTRibs Bilateral W/ChestRibs Bilateral W/ChestRenal Ultrasound-CompleteRenal Ultrasound-Complete
[2022-07-03 00:13] LABS: Absolute Lymphocytes (CBC) 0.2 K/uL (0.7-4.9); Hematocrit 36.2 % (39.6-49.0); Lymphocytes % 1.9 % (15.3-44.8); MCV 90.9 fL (80-100); MPV 8.8 fL (7.6-11.3); RBC Red Blood Cell Count 3.98 M/uL (4.33-5.43)
[2022-07-03 00:26] LABS: Urine Blood Trace-intact (Negative); Urine Glucose Negative (Negative); Urine Protein 2+ (Negative)
[2022-07-03 00:27] LABS: Albumin 3.1 g/dL (3.4-5.0); Bilirubin Total 3.7 mg/dL (0.2-1.0); Protein, Total 7.3 g/dL (6.4-8.2); Troponin High Sensitivity 17.9 pg/mL (<58.9)
[2022-07-03 00:28] LABS: Potassium 2.9 mmol/L (3.5-5.1)
[2022-07-03 00:51] LABS: Blood Morphology Comment NOTED (NOT SEEN); Burr Cells 1+; Platelet Estimate ADEQ
[2022-07-03] MEDS ORDERED: ZIPRASIDONE MESYLA 20 MG/VIAL IM ONE (01:27)
[2022-07-03] MEDS ORDERED: WATER FOR INJ,STERILE 10 ML ONE (01:28)
[2022-07-03] MEDS ORDERED: NA CHLORIDE 0.9% 100 ML ONE (01:32)
[2022-07-03] MEDS ORDERED: PIPERACIL/TAZO 3.375 GM VIAL IV ONE (01:33)
[2022-07-03] MEDS ORDERED: LABETALOL 20 MG/4ML SYRINGE IV ONE (02:24)
[2022-07-03 02:37] LABS: SARS-CoV-2 Antigen Rapid Res Negative (Negative)
[2022-07-03] MEDS ORDERED: NA CHLORIDE 0.9% 250 ML ONE (02:37)
[2022-07-03] MEDS ORDERED: KCL 20 MEQ/100 mL IVPB 100 ML IV ONE ×2 (02:38→02:50)
--- NOTE | 2022-07-03 05:01 | EDPHYS ---
Physician Documentation [facility] Name: Vaughn Webb Age: 82 yrs Sex: Male : 1940 Arrival Date: 07/02/2022 Time: 22:58 Bed 20 Private MD: ED Physician Martinez Maciel HPI: 07/03 03:55 This 82 yrs old Male presents to ER via EMS with complaints of Abdominal pain. rt 03:55 Patient presents to the ED with abdominal pain, starting yesterday, worsening rt throughout the night. He has no associated nausea vomiting. He states that he has not had a bowel movement about 4 days. Pain is aching nature, nonradiating. No other aggravating or alleviating factors.. Historical: - Allergies: 07/02 23:17 Oxybutynin Chloride; jb4 23:17 Phenergan; jb4 - PMHx: 23:17 Cerebrovascular accident; Hypertension; kidney disease; Hyperlipidemia; PROSTATE CA; jb4 07/03 06:45 Vascular Dementia; jb4 - PSHx: 07/02 23:17 bypass surgery; jb4 - Immunization history:: Adult Immunizations up to date. - Social history:: Smoking status: unknown. - Family history:: not pertinent. ROS: 07/03 03:55 Constitutional: Negative for fever, chills, and weight loss, Cardiovascular: Negative rt for chest pain, palpitations, and edema, Respiratory: Negative for shortness of breath, cough, wheezing, and pleuritic chest pain, Skin: Negative for injury, rash, and discoloration, Neuro: Negative for headache, weakness, numbness, tingling, and seizure, Psych: Negative for depression, anxiety, suicide ideation, homicidal ideation, and hallucinations. Abdomen/GI: Positive for abdominal pain, constipation. MS/extremity: Positive for injury or acute deformity, contusion, Negative for Exam: 03:55 Constitutional: This is a well developed, well nourished patient who is awake, alert, rt and in no acute distress. Head/Face: Normocephalic, atraumatic. Chest/axilla: Normal chest wall appearance and motion. Nontender with no deformity. No lesions are appreciated. Cardiovascular: Regular rate and rhythm with a normal S1 and S2. No gallops, murmurs, or rubs. Normal PMI, no JVD. No pulse deficits. Respiratory: Lungs have equal breath sounds bilaterally, clear to auscultation and percussion. No rales, rhonchi or wheezes noted. No increased work of breathing, no retractions or nasal flaring. Skin: Warm, dry with normal turgor. Normal color with no rashes, no lesions, and no evidence of cellulitis. Neuro: Awake and alert, GCS 15, oriented to person, place, time, and situation. Cranial nerves II-XII grossly intact. Motor strength 5/5 in all extremities. Sensory grossly intact. Cerebellar exam normal. Normal gait. Psych: Awake, alert, with orientation to person, place and time. Behavior, mood, and affect are within normal limits. 03:55 Abdomen/GI: Tenderness diffusely with no guarding, rebound, distention. 03:55 Musculoskeletal/extremity: Bruising and tenderness to the right shoulder. 03:55 ECG was reviewed by the Attending Physician. rt Vital Signs: 07/02 23:14 BP 194 / 94; Pulse 92; Resp 16; Temp 97.7(TE); Pulse Ox 97% on R/A; Weight 79.38 kg jb4 (R); Height 5 ft. 11 in. (180.34 cm) (R); Pain 0/10; 07/03 00:10 BP 203 / 89; Pulse 76; Resp 16; Pulse Ox 95% on R/A; jb4 01:13 BP 180 / 93; Pulse 77; Resp 16; Pulse Ox 97% on R/A; jb4 02:00 BP 212 / 80; Pulse 70; Resp 16; Pulse Ox 94% on R/A; jb4 03:37 BP 175 / 98; Pulse 81; Resp 18; Pulse Ox 96% ; mw2 04:43 BP 178 / 74; Pulse 80; Resp 16; Pulse Ox 95% on R/A; jb4 05:35 BP 186 / 76; Pulse 81; Resp 16; Pulse Ox 97% on R/A; jb4 06:44 BP 154 / 65; Pulse 83; Resp 16; Pulse Ox 95% on R/A; jb4 07/02 23:14 Body Mass Index 24.41 (79.38 kg, 180.34 cm) jb4 MDM: 07/02 23:19 Patient medically screened. rt 07/03 05:01 Differential diagnosis: Constipation, choledocholithiasis, cholecystitis, pancreatitis. rt Data reviewed: vital signs, lab test result(s), EKG, radiologic studies. Consideration of Admission/Observation Patient to be transferred for higher level care. Management of patient was discussed with the following: Hospitalist: Agrees to accept the patient in transfer. Apartment Rental Clerk: Spoke with general surgery, agrees with plan of action.. I considered the following discharge prescriptions or medication management in the emergency department Medications were administered in the Emergency Department. See MAR. Independent interpretation of the following test(s) in the Emergency Department CT Scan: My interpretation is Pancreatitis and distended gallbladder noted on CT scan images on my interpretation. Care significantly affected by the following chronic conditions: Hypertension. Counseling: I had a detailed discussion with the patient and/or guardian regarding: the historical points, exam findings, and any diagnostic results supporting the discharge/admit diagnosis, the presence of at least one elevated blood pressure reading (>120/80) during this emergency department visit, lab results, radiology results, the need to transfer to another facility. 07/02 23:32 Order name: CBC with Diff rt 07/02 23:32 Order name: CMP rt 07/02 23:32 Order name: Troponin High Sensitivity rt 07/02 23:32 Order name: Lipase rt 07/03 00:14 Order name: CBC with Automated Diff; Complete Time: 01:14 EDMS 07/03 00:26 Order name: Urine Dipstick-Ancillary; Complete Time: 00:28 EDMS 07/02 23:32 Order name: CT Abd/Pelvis - IV Contrast Only rt 07/03 00:28 Order name: Comprehensive Metabolic Panel; Complete Time: 00:29 EDMS 07/03 00:28 Order name: Troponin High Sensitivity; Complete Time: 00:29 EDMS 07/03 00:28 Order name: Lipase; Complete Time: 00:29 EDMS 07/03 00:52 Order name: Manual Differential; Complete Time: 01:14 EDMS 07/03 01:23 Order name: US Abdomen Limited rt 07/03 01:26 Order name: SARS RAPID rt 07/03 02:37 Order name: SARS-COV-2 Antigen Rapid; Complete Time: 04:33 EDMS 07/02 23:32 Order name: EKG; Complete Time: 23:33 rt 07/02 23:32 Order name: EKG - Nurse/Tech; Complete Time: 00:03 rt 07/02 23:32 Order name: Urine Dipstick-Ancillary (obtain specimen); Complete Time: 01:25 rt EC:55 Rate is 74 beats/min. Rhythm is regular, Normal Sinus Rhythm with Unifocal PVCs. ID rt interval is normal. QRS interval is normal. QT interval is normal at 483 msec. No Q waves. Clinical impression: NSR w/ Non-specific ST/T Changes. Administered Medications: 01:12 Not Given (Physician Discretion): Labetalol 10 mg IV at calculated rate once jb4 01:14 Not Given (Patient Refused): Zofran (Ondansetron) 4 mg IVP once; over 2 minutes jb4 01:14 Not Given (Physician Discretion): Bentyl (dicyclomine) 20 mg IM once jb4 01:38 Drug: Geodon (ziprasidone) 10 mg Route: IM; Site: left deltoid; jb4 01:42 Drug: Zosyn (piperacillin-tazobactam) 3.375 grams Route: IVPB; Infused Over: 60 mins; jb4 Site: left antecubital; 02:24 Drug: Labetalol 10 mg Route: IV; Rate: calculated rate; Site: left antecubital; jb4 02:54 Drug: Potassium Chloride 40 mEq Route: IV; Rate: calculated rate; Site: left jb4 antecubital; 05:27 Drug: NS 0.9% 1000 ml Route: IV; Rate: 1 bolus; Site: left antecubital; jb4 07:07 Drug: NS 0.9% 1000 ml Route: IV; Rate: 125 ml/hr; Site: left antecubital; ko1 Disposition Summary: 07/03/22 05:00 Transfer Ordered Transfer Location: [facility] rt Reason: Higher level of care rt Condition: Fair rt Problem: new rt Symptoms: have improved rt Accepting Physician: Odin(07/03/22 07:46) ren7 Diagnosis - Choledocholithiasis rt - Pancreatitis rt Forms: - Medication Reconciliation Form rt - SBAR form rt Signatures: Dispatcher [employer] EDCliff Pompa RN RN jb4 Milton Wells RN RN jl7 Gi Glaser RN RN ko1 Martinez Maciel MD MD rt Corrections: (The following items were deleted from the chart) 06:45 06:38 PMHx: early onset dementia; jb4 jb4 07:46 05:00 Odin fried jl7
--- NOTE | 2022-07-03 05:01 | ER ---
Nurse's Notes [facility] Name: Vaughn Webb Age: 82 yrs Sex: Male : 1940 Arrival Date: 07/02/2022 Time: 22:58 Bed 20 Private MD: Diagnosis: Choledocholithiasis;Pancreatitis Presentation: 07/02 23:14 Chief complaint: EMS states: Pt reports N/V and lower abdominal pain that has been jb4 present for a couple hours. He has not had a BM since last . His blood pressure has been going up over the last fewer hours. Our last B/p was 199/96 Bgl 187, Pulse 74, RR 17, 97 on RA, temp 97.5. Coronavirus screen: At this time, the client does not indicate any symptoms associated with coronavirus-19. Ebola Screen: No symptoms or risks identified at this time. Initial Sepsis Screen: Does the patient meet any 2 criteria? HR > 90 bpm. Yes Does the patient have a suspected source of infection? Yes: Acute abdominal pain. Risk Assessment: Do you want to hurt yourself or someone else? Patient reports no desire to harm self or others. Onset of symptoms was July 02, 2022. Transition of care: patient was not received from another setting of care. 23:14 Method Of Arrival: EMS: [facility] jb4 23:14 Acuity: PEDRO LUIS 3 jb4 Historical: - Allergies: 23:17 Oxybutynin Chloride; jb4 23:17 Phenergan; jb4 - PMHx: 23:17 Cerebrovascular accident; Hypertension; kidney disease; Hyperlipidemia; PROSTATE CA; jb4 07/03 06:45 Vascular Dementia; jb4 - PSHx: 07/02 23:17 bypass surgery; jb4 - Immunization history:: Adult Immunizations up to date. - Social history:: Smoking status: unknown. - Family history:: not pertinent. Screenin:17 [facility] ED Fall Risk Assessment (Adult) History of falling in the last 3 months, jb4 including since admission No falls in past 3 months (0 pts) Confusion or Disorientation No (0 pts) Score/Fall Risk Level 0 - 2 = Low Risk Oriented to surroundings, Maintained a safe environment. Abuse screen: Denies threats or abuse. Nutritional screening: No deficits noted. Tuberculosis screening: No symptoms or risk factors identified. Assessment: 23:17 General: Appears in no apparent distress. comfortable, Behavior is calm, cooperative. jb4 Pain: Complains of pain in abdomen Pain does not radiate. Pain currently is 0 out of 10 on a pain scale. at worst was 7 out of 10 on a pain scale. Neuro: Level of Consciousness is awake, alert, obeys commands, Oriented to person, place, time, situation. Cardiovascular: Patient's skin is warm and dry. Respiratory: Airway is patent Respiratory effort is even, unlabored, Respiratory pattern is regular, symmetrical. GI: Abdomen is flat, non-distended, Reports lower abdominal pain, nausea, vomiting. : No signs and/or symptoms were reported regarding the genitourinary system. EENT: No signs and/or symptoms were reported regarding the EENT system. Derm: Skin is intact, Skin is pink, warm \T\ dry. Musculoskeletal: Circulation, motion, and sensation intact. Range of motion: intact in all extremities. 07/03 00:07 Reassessment: Patient appears in no apparent distress at this time. Patient and/or [facility] family updated on plan of care and expected duration. Pain level reassessed. Patient is alert, oriented x 3, equal unlabored respirations, skin warm/dry/pink. Pt does not want medication at this time. 01:12 Reassessment: Patient appears in no apparent distress at this time. No changes from [facility] previously documented assessment. Patient and/or family updated on plan of care and expected duration. Pain level reassessed. 01:25 Reassessment: at the bedside reports pt is becoming more confused and agitated, [facility] provider notified, see MAR for orders. 02:17 Reassessment: pt is now A\T\O x 1-2, is becoming more confused. Pressure returned to [facility] 212/84, instructed to give labetalol 10mg IVP x1. 03:00 Reassessment: Pt is resting in bed with eyes closed, respirations are even and jb4 unlabored, no s/s of pain or distress noted. 04:43 Reassessment: Patient appears in no apparent distress at this time. No changes from [facility] previously documented assessment. Patient and/or family updated on plan of care and expected duration. Pain level reassessed. 05:35 Reassessment: Patient appears in no apparent distress at this time. Patient and/or jb4 family updated on plan of care and expected duration. Pain level reassessed. Patient is alert, oriented x 3, equal unlabored respirations, skin warm/dry/pink. 07:07 Reassessment: Patient appears in no apparent distress at this time. No changes from ko1 previously documented assessment. Patient and/or family updated on plan of care and expected duration. Pain level reassessed. Patient is alert, oriented x 3, equal unlabored respirations, skin warm/dry/pink. 07:35 Reassessment: [facility] at bedside to transport pt. niurka Vital Signs: 07/02 23:14 BP 194 / 94; Pulse 92; Resp 16; Temp 97.7(TE); Pulse Ox 97% on R/A; Weight 79.38 kg jb4 (R); Height 5 ft. 11 in. (180.34 cm) (R); Pain 0/10; 07/03 00:10 BP 203 / 89; Pulse 76; Resp 16; Pulse Ox 95% on R/A; jb4 01:13 BP 180 / 93; Pulse 77; Resp 16; Pulse Ox 97% on R/A; jb4 02:00 BP 212 / 80; Pulse 70; Resp 16; Pulse Ox 94% on R/A; jb4 03:37 BP 175 / 98; Pulse 81; Resp 18; Pulse Ox 96% ; mw2 04:43 BP 178 / 74; Pulse 80; Resp 16; Pulse Ox 95% on R/A; jb4 05:35 BP 186 / 76; Pulse 81; Resp 16; Pulse Ox 97% on R/A; jb4 06:44 BP 154 / 65; Pulse 83; Resp 16; Pulse Ox 95% on R/A; jb4 07/02 23:14 Body Mass Index 24.41 (79.38 kg, 180.34 cm) jb4 ED Course: 07/02 22:58 Patient arrived in ED. rv1 23:05 Cliff Simon, RN is Primary Nurse. jb4 23:16 Martinez Maciel MD is Attending Physician. rt 23:17 Triage completed. jb4 23:45 Initial lab(s) drawn, by tx, sent to lab. Inserted saline lock: 18 gauge in left jb4 antecubital area, using aseptic technique. Blood collected. 07/03 02:26 initiated a transfer with Sharri from [facility]. mw2 02:58 [facility] denied due to capacity. Sharri trying [facility]. mw2 03:29 [facility] denied due to not having that specialty. mw2 03:32 initiated a transfer with Ginny from [facility]. mw2 04:[address] Maciel with Dr. Newby from [facility]. mw2 04:[address] Maciel with the Surgeon from [facility]. mw2 05:02 administrative approval given by Ginny Portillo/ patient has been accepted to [address] to bed 2442/ Dr. Newby accepted the patient in transfer/report to be called to [phone]. 07:07 transfer transportation to receiving facility. ko1 07:07 No provider procedures requiring assistance completed. ko1 07:07 Patient has correct armband on for positive identification. Allergy band placed. Fall ko1 risk band placed. Bed in low position. Call light in reach. Side rails up X2. Adult w/ patient. Client placed on continuous cardiac and pulse oximetry monitoring. NIBP monitoring applied. bus monitor on. 07:35 Patient transferred, IV remains in place. intact, No redness/swelling at site. jl7 07:46 Arm band placed on right wrist. jl7 Administered Medications: 01:12 Not Given (Physician Discretion): Labetalol 10 mg IV at calculated rate once jb4 01:14 Not Given (Patient Refused): Zofran (Ondansetron) 4 mg IVP once; over 2 minutes jb4 01:14 Not Given (Physician Discretion): Bentyl (dicyclomine) 20 mg IM once jb4 01:38 Drug: Geodon (ziprasidone) 10 mg Route: IM; Site: left deltoid; jb4 01:42 Drug: Zosyn (piperacillin-tazobactam) 3.375 grams Route: IVPB; Infused Over: 60 mins; jb4 Site: left antecubital; 02:24 Drug: Labetalol 10 mg Route: IV; Rate: calculated rate; Site: left antecubital; jb4 02:54 Drug: Potassium Chloride 40 mEq Route: IV; Rate: calculated rate; Site: left jb4 antecubital; 05:27 Drug: NS 0.9% 1000 ml Route: IV; Rate: 1 bolus; Site: left antecubital; jb4 07:07 Drug: NS 0.9% 1000 ml Route: IV; Rate: 125 ml/hr; Site: left antecubital; ko1 Medication: 07:07 VIS not applicable for this client. ko1 Outcome: 05:00 ER care complete, transfer ordered by . rt 07:35 Transferred by ground EMS Transfer form completed. jl7 07:35 Condition: stable 07:35 Discharge instructions given to patient, family, Instructed on the need for transfer, Demonstrated understanding of instructions. 07:46 Patient left the ED. jl7 Signatures: Cliff Simon RN RN jb4 Milton Wells RN RN jl7 Wilfrid Lorenzo mw2 Gi Glaesr RN RN ko1 Martinez Maciel MD MD rt Pat Saavedra rv1 Corrections: (The following items were deleted from the chart) 00:09 00:07 Reassessment: Pt does not want medication at this time mitch jb4 06:45 06:38 PMHx: early onset dementia; mitch jb4
[2022-07-03] MEDS ORDERED: NA CHLORIDE 0.9% 2,000 ML ONE (05:25)
[2022-07-03 08:21] VITALS: BP 154/65
[2022-07-03 08:33] VITALS: TEMP 99.3; O2SAT 92
--- NOTE | 2022-07-03 12:36 | EKG ---
Test Date: 2022-07-02 Test Time: 23:57:02 Autopsy Pathologist: ERNESTO MEASUREMENT RESULTS: Intervals: Rate: 74 WA: 166 QRSD: 100 QT: 436 QTc: 483 [place]: P: 39 WA: 166 QRS: -31 T: 65 INTERPRETIVE STATEMENTS: Sinus rhythm Left axis deviation Nonspecific ST and T wave abnormality Prolonged QT Abnormal ECG Compared to ECG 11/11/2021 09:30:56 ST (T wave) deviation still present Electronically Signed On 07-03-22 12:35:02 [employer] by John Schmitz
--- NOTE | 2022-07-03 20:43 | RAD REPORT ---
EXAM DESCRIPTION: CT - Abdomen Pelvis Wo Contrast - 07/03/2022 7:00 am CLINICAL HISTORY: ABD PAIN COMPARISON: 08/29/2021 TECHNIQUE: CT of the abdomen and pelvis without IV contrast. Evaluation of the solid organs and vasc ulature is suboptimal due to lack of IV contrast. This exam was performed according to our department al dose-optimization program, which includes automated exposure control, adjustment of the mA and/or kV according to patient size and/or use of iterative reconstruction technique. Significant motion art ifact. FINDINGS: Lung Bases: Minimal dependent atelectasis. Bones: Multilevel endplate spondylosis and facet arthropathy. Compression deformities of L2-L4. Bilateral sacroiliac fixation. Osteoarthritic change of the right h ip. Left total hip arthroplasty. Healed bilateral pelvic fractures. Abdomen: Liver: The liver has normal size and density. Gallbladder: Distention of the gallbladder without calcified gallstone. Spleen, Pancreas, and Adrenal Glands: Fat stranding in the retroperitoneum adjacent to the pancreat ic head. No well-circumscribed fluid collections. Kidneys: Severe right renal atrophy. No hydronephrosis. Nonobstructing left nephrolithiasis. Vasculature: Aortoiliac atherosclerosis. Abdominal aortic aneurysm measuring 5.3 cm. IVC is unremarka ble. Stomach: Small hiatal hernia. Wall thickening of the duodenum. Other: No free intraperitoneal air. No free fluid or lymphadenopathy. Pelvis: Bladder: Urinary bladder is unremarkable. Bowel: No dilated loops of large or small bowel. Scattered diverticula of the colon. Large amount o f stool. Appendix: Normal appendix. Pelvis: Prostate seeds. IMPRESSION: 1. Fat stranding adjacent to the pancreatic head. These findings could be seen with ac radha pancreatitis. Correlation with serum lipase recommended. 2. Wall thickening of the duodenum. This may be reactive however if serum lipase is normal, duodeni tis or ulcer disease could also produce this appearance. Overall characterization of the upper abdome n is suboptimal due to significant motion artifact. 3. Distention of the gallbladder without calcified gallstone. 4. 5.3 cm abdominal aortic aneurysm. Vascular consultation and six-month imaging follow-up recommen ded. 5. Nonobstructing left nephrolithiasis. 6. Severe right renal atrophy. 7. Diverticulosis without evidence of acute diverticulitis. Electronically signed by: Harshal Wallace 07/03/2022 1:46 AM BELT MOLDER Due to temporary technical issues with the PACS/Fluency reporting system, reports are being signed by the in house radiologists without review as a courtesy to insure prompt reporting. The interpreting radiologist is fully responsible for the content of the report.
--- NOTE | 2022-07-03 21:05 | RAD REPORT ---
EXAM DESCRIPTION: US - Abdomen Exam Limited - 07/03/2022 1:56 am CLINICAL HISTORY: RUQ pain COMPARISON: None. TECHNIQUE: US ABDOMEN LIMITED 07/03/2022 1:23 AM MARKETING SALES CONSULTANT FINDINGS: Gallbladder wall is mildly thickened at 5 mm. There is trace pericholecystic fluid. There is layering sludge within the gallbladder without definite gallstones. Common bile duct measures 1 cm . IMPRESSION: Possible cholecystitis. No convincing gallstones. Electronically signed by: Puneet Sainz MD 07/03/2022 2:38 AM MARKETING SALES CONSULTANT Due to temporary technical issues with the PACS/Fluency reporting system, reports are being signed by the in house radiologists without review as a courtesy to insure prompt reporting. The interpreting radiologist is fully responsible for the content of the report.
== END 2022-07-03 07:46 | disposition short-term general hospital (02) ==
LOC: ER 22:56
DX: K80.50 Calculus of bile duct without cholangitis or cholecystitis without obstruction (principal); K85.90 Acute pancreatitis without necrosis or infection, unspecified; I10 Essential (primary) hypertension; F01.50 Vascular dementia, unspecified severity, without behavioral disturbance, psychotic disturbance, mood disturbance, and anxiety; Z20.822 Contact with and (suspected) exposure to COVID-19; Z88.8 Allergy status to other drugs, medicaments and biological substances
CPT/HCPCS: 93005; 85025; 36415; 81003; 84484; 83690; 80053; 74176; 76705; 87811; J2543; J3480 ×2; J3486; J7050; J7030